=== PATIENT | male | born 1955 | race African-American/Black ===

== ENCOUNTER 2019-03-21 11:50 | Day surgery (SDC) | payer OTHER ==
--- NOTE | 2019-03-20 09:17 | RAD REPORT ---
EXAM DESCRIPTION: RAD - Chest Pa And Lat (2 Views) - 03/20/2019 8:40 am CLINICAL HISTORY: preop Chest pain. COMPARISON: No comparisons FINDINGS: The lungs are clear. The heart is upper limit of normal in size. No displaced fractures.
[2019-03-20 09:23] LABS: Absolute Lymphocytes (CBC) 1.2 K/uL (0.7-4.9); Basophils % 0.5 % (0-1.3); Hematocrit 33.5 % (39.6-49.0); Lymphocytes % 20.7 % (15.3-44.8); MPV 8.4 fL (7.6-11.3); RBC Red Blood Cell Count 3.94 M/uL (4.33-5.43); Urine Appearance TURBID; Urine Bilirubin NEGATIVE (NEG); Urine Blood NEGATIVE (NEG); Urine Color YELLOW; Urine Glucose NEGATIVE (NEG); Urine Protein 2+ (NEG); Urine Specific Gravity 1.025 (1.005-1.030)
[2019-03-20 09:25] LABS: Urine Microscopic Reflex ORDER UMIC
[2019-03-20 09:29] LABS: Protime INR 1.02
[2019-03-20 09:31] LABS: Potassium 4.1 mmol/L (3.5-5.1)
[2019-03-20 09:52] LABS: Urine Bacteria <20 /HPF (NONE SEEN); Urine RBC <5 /HPF (NONE SEEN)
[2019-03-20 09:53] LABS: Urine Amorphous Sediment 1+ /HPF (NONE SEEN); Urine Culture Reflex Order NOT NEEDED; Urine Mucus LIGHT /HPF (NONE SEEN); Urine Sperm PRESENT (NONE SEEN)
[2019-03-21] MEDS ORDERED: LIDOCAINE 1% MPF 30 ML VIAL ONE (12:23)
[2019-03-21] MEDS ORDERED: NA CHLORIDE 0.9% 1,000 ML ONE (12:29)
[2019-03-21] MEDS ORDERED: CEFAZOLIN/SWI 1gm 1 GM/10 ML SYR ONE (12:29)
[2019-03-21] MEDS ORDERED: LIDOCAINE 2% MPF 5 ML VIAL ONE (12:53)
[2019-03-21] MEDS ORDERED: propofoL 200 MG/20 ML VIAL IV ONE (12:53)
[2019-03-21] MEDS ORDERED: FENTANYL CITR 100 MCG/2 ML ONE (12:53)
[2019-03-21] MEDS ORDERED: MIDAZOLAM HCL 2 MG/2 ML INJ ONE (12:53)
[2019-03-21] MEDS ORDERED: BACITRACIN OINTMENT 15 GM TUBE TOP ONE (15:12)
[2019-03-21 17:34] VITALS: BP 137/73; TEMP 97.6; O2SAT 96
== END 2019-03-21 17:30 | disposition home or self-care (01) ==
LOC: OR 11:50
PROVIDERS: ATTEND Urology
PROC: 0VTTXZZ Resection of Prepuce, External Approach (ICD-10-PCS; principal; 2019-03-21 13:00)
DX: N47.1 Phimosis (principal); N42.9 Disorder of prostate, unspecified; N47.6 Balanoposthitis
CPT/HCPCS: 87088; 85025; 87086; 80048; 36415; 85610; 82947 ×2; 88304; 85730; 71046; 54150; J2704; J2250; J3010; J0690; J7030; 81003; 81015

== ENCOUNTER 2020-06-13 10:40 | Emergency (ER) | payer OTHER ==
[2020-06-13 11:32] LABS: Absolute Lymphocytes (CBC) 1.7 K/uL (0.7-4.9); Basophils % 0.9 % (0-1.3); Lymphocytes % 26.8 % (15.3-44.8); MPV 9.3 fL (7.6-11.3); RBC Red Blood Cell Count 4.56 M/uL (4.33-5.43)
--- NOTE | 2020-06-13 11:36 | RAD REPORT ---
EXAM DESCRIPTION: RAD - Chest Single View - 06/13/2020 11:21 am CLINICAL HISTORY: SOB COMPARISON: March 2019 TECHNIQUE: AP portable chest image was obtained 06/13/2020 11:21 am . FINDINGS: Lung volumes are low. Heart, vasculature and lung markings are all prominent even when adj usting for respiration and technique differences. No peripheral mass or consolidation. Posterior gutt er and retrocardiac assessment are more limited. Trachea is midline. No pneumothorax or large pleural effusion. No acute bony abnormality seen. No acute aortic findings suspected. IMPRESSION: Limited portable study suspicious for mild failure or volume overload.
[2020-06-13 11:40] LABS: Protime INR 1.16
[2020-06-13 11:46] LABS: ALT/SGPT 15 U/L (12-78); AST/SGOT 15 U/L (15-37); Albumin 3.3 g/dL (3.4-5.0); Alkaline Phosphatase 132 U/L (45-117); BUN Blood Urea Nitrogen 8 mg/dL (7-18); Bicarbonate 37 mmol/L (21-32); Bilirubin Direct 0.1 mg/dL (0-0.2); Bilirubin Total 0.3 mg/dL (0.2-1.0); Glucose Level 77 mg/dL (74-106); Magnesium 1.9 mg/dL (1.8-2.4); NT PRO-BNP 5088 pg/mL (<125); Potassium 4.3 mmol/L (3.5-5.1); Sodium Level 144 mmol/L (136-145); Troponin (Emerg Dept Use Only) 0.04 ng/mL (0.0-0.045)
[2020-06-13] MEDS ORDERED: ACETAMINOPHEN 500 MG TAB PO PRN (12:24)
[2020-06-13] MEDS ORDERED: ONDANSETRON 4 MG/2 ML VIAL IV PRN (12:24)
--- NOTE | 2020-06-13 12:26 | EDPHYS ---
Physician Documentation [facility] Name: Jose Elias Uribe Age: 64 yrs Sex: Male : 1955 Arrival Date: 06/13/2020 Time: 10:42 Bed 4 Private MD: ED Physician Vladimir Alvares HPI: 06/13 11:00 This 64 yrs old Black Male presents to ER via Unassigned with complaints of Shortness cp Of Breath. 11:00 The patient has shortness of breath with light activity. Onset: The symptoms/episode cp began/occurred gradually. 11:00 Duration: The symptoms are continuous, and are steadily getting worse. cp 11:00 Associated signs and symptoms: Pertinent negatives: chest pain, productive cough, cp fever, vomiting. Severity of symptoms: in the emergency department the symptoms have improved mildly. Historical: - Allergies: 13:25 No Known Allergies; tw2 - Home Meds: 13:25 allopurinol 100 mg Oral tab 1 tab once daily for Gout [Active]; alogliptin 25 mg oral tw2 tab 1 tab once daily for Type 2 Diabetes Mellitus [Active]; aspirin 81 mg Oral chew 1 tab once daily [Active]; atorvastatin 10 mg oral tab 1 tab once daily [Active]; cholecalciferol (vitamin D3) oral 50 mcg oral daily [Active]; finasteride 5 mg oral tab 1 tab once daily [Active]; glyburide 5 mg Oral tab 2 tabs 2 times per day [Active]; insulin glargine subcutaneous 100 unit/ml - inject 15 units sq every morning, inject 10 units at bedtime Sub-Q [Active]; lisinopril 10 mg Oral tab 1 tab once daily [Active]; metformin 1,000 mg Oral tab 1 tab 2 times per day [Active]; metoprolol tartrate 25 mg Oral tab 0.5 tab 2 times per day [Active]; omeprazole 20 mg Oral cpDR 1 cap once daily [Active]; tamsulosin 0.4 mg oral cp24 1 cap once daily [Active]; cyanocobalamin (vitamin B-12) 1,000 mcg oral tab daily [Active]; - PMHx: 13:08 COPD; Diabetes - IDDM; Hypertension; tw2 13:25 Alcoholism; Back pain; Hyperlipidemia; PVD; Obesity; Depression; tw2 - Immunization history:: Adult Immunizations. - Social history:: Smoking status: . ROS: 11:00 Constitutional: Negative for body aches, chills, fever, poor PO intake. cp 11:00 Eyes: Negative for injury, pain, redness, and discharge. cp 11:00 ENT: Negative for ear pain, sore throat, difficulty swallowing, difficulty handling secretions. 11:00 Cardiovascular: Positive for edema, Negative for chest pain, palpitations. 11:00 Respiratory: Positive for shortness of breath, Negative for cough, wheezing. 11:00 Abdomen/GI: Negative for abdominal pain, nausea, vomiting, and diarrhea. 11:00 Skin: Negative for rash. 11:00 Neuro: Negative for altered mental status, headache, syncope, weakness. 11:00 All other systems are negative. Exam: 11:00 ECG was reviewed by the Attending Physician. cp 11:05 Constitutional: The patient appears in no acute distress, alert, awake, cp non-diaphoretic, non-toxic, well developed, well nourished, obese. 11:05 Head/Face: Normocephalic, atraumatic. cp 11:05 Eyes: Periorbital structures: appear normal, Conjunctiva: normal, no exudate, no injection, Sclera: no appreciated abnormality, Lids and lashes: appear normal, bilaterally. 11:05 ENT: External ear(s): are unremarkable, Nose: is normal, Mouth: Lips: moist, Oral mucosa: pink and intact, moist, Posterior pharynx: Airway: no evidence of obstruction, patent, swelling, is not appreciated, erythema, is not appreciated, exudate, is not appreciated. 11:05 Neck: ROM/movement: is normal, is supple, without pain, no range of motions limitations. 11:05 Chest/axilla: Inspection: normal, Palpation: is normal, no crepitus, no tenderness. 11:05 Cardiovascular: Rate: normal, Rhythm: regular, Edema: ankle edema, that is mild, JVD: is not appreciated. 11:05 Respiratory: the patient does not display signs of respiratory distress, Respirations: normal, no use of accessory muscles, no retractions, labored breathing, is not present, Breath sounds: decreased breath sounds, that are mild, diffuse, stridor, is not appreciated, wheezing: is not appreciated. 11:05 Abdomen/GI: Inspection: obese Palpation: abdomen is soft and non-tender, in all quadrants. 11:05 Back: pain, is absent, ROM is normal. 11:05 Skin: no rash present. 11:05 Neuro: Orientation: to person, place \\T\\ time. Mentation: is normal, Cerebellar function: is grossly normal, Motor: moves all fours, strength is normal, Sensation: is normal. Vital Signs: 10:43 Pulse Ox 84% on R/A; aa5 11:00 BP 112 / 78; Pulse 78; Resp 19; Pulse Ox 99% on 2 lpm NC; tw2 13:21 BP 150 / 86; Pulse 89; Resp 17 S; Pulse Ox 100% on 2 lpm NC; jd3 15:05 BP 154 / 78; Pulse 85; Resp 20 S; Pulse Ox 99% on 2 lpm NC; jd3 MDM: 10:42 Patient medically screened. [email or web address] 12:00 Physician consultation: Patricia Fuentes MD was called at 12:00, was contacted at 12:00, cp regarding admission, to the telemetry unit. patient's condition. 12:25 Data reviewed: vital signs, nurses notes, lab test result(s), EKG, radiologic studies, cp plain films. 12:25 Test interpretation: by ED physician or midlevel provider: ECG, plain radiologic cp studies. 06/13 10:45 Order name: Basic Metabolic Panel cp 06/13 10:45 Order name: CBC with Diff cp 06/13 10:45 Order name: LFT's cp 06/13 10:45 Order name: Magnesium cp 06/13 10:45 Order name: NT PRO-BNP cp 06/13 10:45 Order name: PT-INR cp 06/13 10:45 Order name: Troponin (emerg Dept Use Only) cp 06/13 11:16 Order name: COVID-19 : Document "Date of Symptom Onset" if Symptomatic. eb 06/13 11:31 Order name: CORONAVIRUS EDWV 06/13 11:46 Order name: Basic Metabolic Panel; Complete Time: 11:53 EDWV 06/13 11:53 Interpretation: Normal except: CO2 37. cp 06/13 11:46 Order name: Liver (Hepatic) Function; Complete Time: 11:53 EDWV 06/13 11:53 Interpretation: Normal except: ALK 132; ALB 3.3; GLOB 4.7; A/G 0.7. 06/13 11:46 Order name: Troponin (Emerg Dept Use Only); Complete Time: 11:53 EDMS 06/13 11:54 Interpretation: Within normal limits: TROPED 0.04. cp 06/13 11:46 Order name: NT PRO-BNP; Complete Time: 11:53 EDMS 06/13 11:53 Interpretation: Abnormal: NT PRO-BNP 5088. 06/13 10:45 Order name: XRAY Chest (1 view) cp 06/13 10:45 Order name: EKG; Complete Time: 10:46 cp 06/13 10:45 Order name: Cardiac monitoring; Complete Time: 11:23 cp 06/13 10:45 Order name: EKG - Nurse/Tech; Complete Time: 12:06 06/13 10:45 Order name: IV Saline Lock; Complete Time: 11:23 cp 06/13 10:45 Order name: Labs collected and sent; Complete Time: 11:24 06/13 10:45 Order name: O2 Per Protocol; Complete Time: 11:24 06/13 10:45 Order name: O2 Sat Monitoring; Complete Time: 11:24 06/13 11:36 Order name: RAD; Complete Time: 11:43 EDMS 06/13 11:44 Interpretation: Report reviewed. 06/13 11:46 Order name: Magnesium; Complete Time: 11:53 EDMS 06/13 11:46 Order name: Protime (+INR); Complete Time: 11:53 EDMS 06/13 12:01 Order name: CBC with Automated Diff; Complete Time: 12:23 EDMS 06/13 12:16 Order name: SARS-COV-2 RT PCR; Complete Time: 12:23 EDMS EC:00 Rate is 86 beats/min. Rhythm is regular. NC interval is normal. QRS interval is normal. cp QT interval is normal. Interpreted by me. Reviewed by me. Administered Medications: 12:35 Drug: Lasix 40 mg Route: IVP; Site: left antecubital; tw2 13:30 Follow up: Response: No adverse reaction jd3 12:35 Drug: Aspirin Chewable Tablet 162 mg Route: PO; tw2 13:30 Follow up: Response: No adverse reaction jd3 Disposition: 16:11 Co-signature as Attending Physician, Vladimir Alvares MD I agree with the assessment and [facility] plan of care. Disposition: 06/13/20 15:45 Patient has left against medical advice. Impression: Hypoxemia, Unspecified combined systolic (congestive) and diastolic (congestive) heart failure. - Patients states they are going to Home. - Condition is Fair. Follow up: Private Physician; When: Today; Reason: Recheck today's complaints. - Problem is new. - Symptoms are unchanged. Signatures: Dispatcher [employer] EDWV Vladimir Alvares MD MD cha Page, Corey, PA PA cp Hailey Ibrahim RN RN tw2 Angel Connell RN RN jd3 Corrections: (The following items were deleted from the chart) 12:25 12:25 Hospitalization Ordered by Patricia Fuentes MD for Inpatient Admission. Preliminary cp diagnosis is Unspecified combined systolic (congestive) and diastolic (congestive) heart failure. Bed requested for Telemetry/MedSurg (Inpatient). Status is Inpatient Admission. Condition is Stable. Problem is new. Symptoms have improved. cp 15:45 12:25 06/13/2020 12:25 Hospitalization Ordered by Patricia Fuentes MD for Inpatient cp Admission. Preliminary diagnosis is Unspecified combined systolic (congestive) and diastolic (congestive) heart failure; Hypoxemia. Bed requested for Telemetry/MedSurg (Inpatient). Status is Inpatient Admission. Condition is Stable. Problem is new. Symptoms have improved. cp 15:46 15:45 06/13/2020 15:45 Patients has left against medical advice. Impression: Hypoxemia; jd3 Unspecified combined systolic (congestive) and diastolic (congestive) heart failure. Patient states they are going to Home. Condition is Fair. Follow up: Private Physician; When: Today; Reason: Recheck today's complaints. Problem is new. Symptoms are unchanged. cp 19:36 12:00 Physician consultation: Roland Escalera was called at 12:00, was contacted at 12:00, regarding admission, to the telemetry unit. patient's condition, cp
--- NOTE | 2020-06-13 12:26 | ER ---
Nurse's Notes [facility] Name: Jose Elias Uribe Age: 64 yrs Sex: Male : 1955 Arrival Date: 06/13/2020 Time: 10:42 Bed 4 Private MD: Diagnosis: Hypoxemia;Unspecified combined systolic (congestive) and diastolic (congestive) heart failure Presentation: 06/13 10:42 Chief complaint: EMS states: pt from [place], went for routine check up, was noted 68% RA, tw2 pt has no complaints at first, then he began to have chest pain, he said RIGHT sharp chest pain at least once a week, didn't think anything about it, they had him on o2 when we arrived, in the ambulance we noted 89% on RA, we placed him back on the 2L nc and he returned to mid to high 90's%, hx: copd, htn, dm, NOTED BEDBUGS ON PT. Coronavirus screen: difficulty breathing, Client presents with at least one sign or symptom that may indicate coronavirus-19. Standard/surgical mask placed on the client. Provider contacted for isolation considerations. Ebola Screen: Patient denies travel to an Ebola-affected area in the 21 days before illness onset. Initial Sepsis Screen: Does the patient meet any 2 criteria? No. Patient's initial sepsis screen is negative. Does the patient have a suspected source of infection? No. Patient's initial sepsis screen is negative. Risk Assessment: Do you want to hurt yourself or someone else? Patient reports no desire to harm self or others. Onset of symptoms was June 13, 2020. 10:42 Method Of Arrival: EMS: [facility] tw2 10:42 Acuity: COLE 2 tw2 10:42 Care prior to arrival: Oxygen administered. via nasal cannula. tw2 Historical: - Allergies: 13:25 No Known Allergies; tw2 - Home Meds: 13:25 allopurinol 100 mg Oral tab 1 tab once daily for Gout [Active]; alogliptin 25 mg oral tw2 tab 1 tab once daily for Type 2 Diabetes Mellitus [Active]; aspirin 81 mg Oral chew 1 tab once daily [Active]; atorvastatin 10 mg oral tab 1 tab once daily [Active]; cholecalciferol (vitamin D3) oral 50 mcg oral daily [Active]; finasteride 5 mg oral tab 1 tab once daily [Active]; glyburide 5 mg Oral tab 2 tabs 2 times per day [Active]; insulin glargine subcutaneous 100 unit/ml - inject 15 units sq every morning, inject 10 units at bedtime Sub-Q [Active]; lisinopril 10 mg Oral tab 1 tab once daily [Active]; metformin 1,000 mg Oral tab 1 tab 2 times per day [Active]; metoprolol tartrate 25 mg Oral tab 0.5 tab 2 times per day [Active]; omeprazole 20 mg Oral cpDR 1 cap once daily [Active]; tamsulosin 0.4 mg oral cp24 1 cap once daily [Active]; cyanocobalamin (vitamin B-12) 1,000 mcg oral tab daily [Active]; - PMHx: 13:08 COPD; Diabetes - IDDM; Hypertension; tw2 13:25 Alcoholism; Back pain; Hyperlipidemia; PVD; Obesity; Depression; tw2 - Immunization history:: Adult Immunizations. - Social history:: Smoking status: . Screenin:36 Abuse screen: Denies threats or abuse. Nutritional screening: No deficits noted. jd3 Tuberculosis screening: No symptoms or risk factors identified. Fall Risk Ambulatory Aid- None/Bed Rest/Nurse Assist (0 pts). Gait- Normal/Bed Rest/Wheelchair (0 pts) Mental Status- Oriented to own ability (0 pts). Total Mckinley Fall Scale indicates No Risk (0-24 pts). Assessment: 12:30 General: Appears in no apparent distress. uncomfortable, Behavior is calm, cooperative, jd3 appropriate for age. Pain: Complains of pain in chest Quality of pain is described as aching. Neuro: Level of Consciousness is awake, alert, obeys commands, Oriented to person, place, time, situation. Cardiovascular: Capillary refill < 3 seconds Patient's skin is warm and dry. Rhythm is. Respiratory: Reports shortness of breath at rest Airway is patent Respiratory effort is unlabored, shallow, Respiratory pattern is symmetrical, tachypnea the patient has moderate shortness of breath. GI: No signs and/or symptoms were reported involving the gastrointestinal system. : No signs and/or symptoms were reported regarding the genitourinary system. EENT: No signs and/or symptoms were reported regarding the EENT system. Derm: Skin is intact, Skin is dry, Skin is normal, Skin temperature is warm. Musculoskeletal: Circulation, motion, and sensation intact. Range of motion: intact in all extremities. 13:26 Reassessment: Patient appears in no apparent distress at this time. No changes from tw2 previously documented assessment. Patient and/or family updated on plan of care and expected duration. Pain level reassessed. 13:38 Reassessment: pt noted to be standing outside of exam room states "yall left me in here tw2 all connected and didn't tell me how to go to the bathroom and i dont have a tv in this room", pt educated as to the need to be in this exam room at this time as it is the only room we have available, and that urinal was hanging on his bed rail for his use, provider at bedside at this time educating pt. 14:30 Reassessment: No changes from previously documented assessment. Patient and/or family jd3 updated on plan of care and expected duration. Pain level reassessed. 15:30 Reassessment: Patient and/or family updated on plan of care and expected duration. Pain jd3 level reassessed. pt refusing to stay in room reporting wanting to go home. pt informed of the risk of leaving against medical advise. pt signed AMA form. IV discontinued after pt spoke with provider and assisted to lobby to wait for ride. Vital Signs: 10:43 Pulse Ox 84% on R/A; aa5 11:00 BP 112 / 78; Pulse 78; Resp 19; Pulse Ox 99% on 2 lpm NC; tw2 13:21 BP 150 / 86; Pulse 89; Resp 17 S; Pulse Ox 100% on 2 lpm NC; jd3 15:05 BP 154 / 78; Pulse 85; Resp 20 S; Pulse Ox 99% on 2 lpm NC; jd3 ED Course: 10:42 Patient arrived in ED. am2 10:42 Vladimir Dasilva PA is PHCP. cp 10:42 Vladimir Alvares MD is Attending Physician. cp 10:42 Arm band placed on. tw2 10:42 Bed in low position. Call light in reach. Side rails up X2. night monitor on. Pulse tw2 ox on. NIBP on. 10:55 Inserted saline lock: 20 gauge in left antecubital area, using aseptic technique. Blood kj1 collected. 10:55 Initial lab(s) drawn, by me, sent to lab. EKG done, by ED staff, reviewed by Vladimir Alvares MD. 12:04 Hailey Ibrahim, RN is Primary Nurse. tw2 12:24 Patricia Fuentes MD is Hospitalizing Provider. cp 13:07 Triage completed. tw2 15:36 No provider procedures requiring assistance completed. IV was discontinued by the jd3 patient. Patient did not have IV access during this emergency room visit. Administered Medications: 12:35 Drug: Lasix 40 mg Route: IVP; Site: left antecubital; tw2 13:30 Follow up: Response: No adverse reaction jd3 12:35 Drug: Aspirin Chewable Tablet 162 mg Route: PO; tw2 13:30 Follow up: Response: No adverse reaction jd3 Outcome: 12:25 Decision to Hospitalize by Provider. cp 15:37 AMA AMA form signed jd3 15:37 Condition: stable 15:37 Instructed on follow up and referral plans. the need for admit, possible problems with leaving against medical advice. AMA form signed 15:46 Patient left the ED. jd3 Signatures: Vivian Mcgowan, RN RN aa5 Vladimir Dasilva, ANNMARIE PA cp Hailey Ibrahim, RN RN tw2 Fouzia Jerez am2 Angel Connell RN RN jd3 Otilia Spencer Corrections: (The following items were deleted from the chart) 20:01 13:38 Reassessment: pt noted to be standing outside of exam room states "yall left me tw2 in here all connected and didn't tell me how to go to the bathroom and i dont have a tv in this room", pt educated as to the need to be in this exam room at this time as it is the only room we have available, provider at bedside at this time educating pt tw2
[2020-06-13] MEDS ORDERED: ASPIRIN 81 MG CHEWABLE TABLET ONE (12:46)
[2020-06-13] MEDS ORDERED: FUROSEMIDE 40 MG/4 ML VIAL ONE (12:47)
[2020-06-13 15:56] VITALS: BP 154/78; O2SAT 99
[2020-06-13] MEDS ORDERED: FUROSEMIDE 20 MG/ 2ML VIAL IV SCH (17:00)
[2020-06-14] MEDS ORDERED: METOPROLOL TAR 50 MG TAB PO SCH (06:00)
--- NOTE | 2020-06-14 06:51 | EKG ---
Test Date: 2020-06-13 Test Time: 10:56:20 Commercial Installer: LUIGI MEASUREMENT RESULTS: Intervals: Rate: 84 DE: 174 QRSD: 94 QT: 428 QTc: 505 [place]: P: 27 DE: 174 QRS: -30 T: 192 INTERPRETIVE STATEMENTS: Sinus rhythm with fusion complexes Left axis deviation Low voltage QRS Incomplete right bundle branch block Septal infarct, age undetermined Possible Lateral infarct, age undetermined Abnormal ECG No previous ECG available for comparison Electronically Signed On 06-14-20 06:49:17 TRUCK CLEANER by Theron Madrid
[2020-06-14] MEDS ORDERED: VANCOMYCIN 1 GM/VIAL ONE (12:42)
[2020-06-14] MEDS ORDERED: NA CHLORIDE 0.9% 250 ML ONE (12:42)
[2020-06-14] MEDS ORDERED: PIPER/TAZO/NS 3.375gm 3.375 GM/100 ML BAG ONE (12:42)
--- NOTE | 2020-06-15 08:34 | EKG ---
Test Date: 2020-06-13 Test Time: 10:56:45 Safety Admin Assistant: LUIGI MEASUREMENT RESULTS: Intervals: Rate: 86 PA: 160 QRSD: 96 QT: 386 QTc: 461 [place]: P: 10 PA: 160 QRS: -26 T: 110 INTERPRETIVE STATEMENTS: Normal sinus rhythm Low voltage QRS Incomplete right bundle branch block Cannot rule out Anterior infarct, age undetermined Abnormal ECG Compared to ECG 06/13/2020 10:56:20 Fusion complex(es) no longer present Left-axis deviation no longer present Myocardial infarct finding still present Electronically Signed On 06-15-20 08:29:46 TELEVISION INSTALLER HELPER by Theron Madrid
== END 2020-06-13 15:46 | disposition left against medical advice (07) ==
LOC: ER 10:40 → UNDOADMOB 12:27 → ERHOLD 12:27
DX: I50.9 Heart failure, unspecified (principal); I10 Essential (primary) hypertension; E11.9 Type 2 diabetes mellitus without complications; E78.5 Hyperlipidemia, unspecified; F10.20 Alcohol dependence, uncomplicated; J44.9 Chronic obstructive pulmonary disease, unspecified; Z79.82 Long term (current) use of aspirin; Z20.822 Contact with and (suspected) exposure to COVID-19
CPT/HCPCS: 93005 ×2; 85025; 80048; 36415; 83735; 85610; 80076; 84484; 83880; 71045; U0003; J1940; 96374; 99284

== ENCOUNTER 2021-12-05 20:34 | Emergency (ER) | payer OTHER ==
--- OUTSIDE RECORDS SUMMARY | 2021-12-05 21:18 | XMS REPORT | Continuity of Care Document ---
:1955 Author Organization [facility] t Address [address] [place] [address] Care Team Providers Name Role [facility] Primary Care Physician Unavailable [id number] Attending Clinician Unavailable LAWRENCE TALAVERA Attending Clinician Unavailable Skyler Huber Attending Clinician Unavailable ASHLEY MI NATASHA Attending Clinician Unavailable ZOFIA MULLER Attending Clinician Unavailable Zofia Muller Attending Clinician [phone] Mariah Schneider Attending Clinician Francis Perdomo RN Attending Clinician Unavailable BLU HAHN Attending Clinician Unavailable BLU HAHN Attending Clinician Unavailable Kenyetta Schultz Attending Clinician Braulio Figueroa MD Attending Clinician DEBORAH JEAN Attending Clinician Unavailable ASHLEY MI Attending Clinician Unavailable CHETNA HAMILTON Attending Clinician Unavailable Chetna Hamilton Attending Clinician Israel Kumar Attending Clinician Taylor CORONEL, Deborah Zhong Attending Clinician [phone] Vaccine, Eugene Family Attending Clinician Unavailable Doctor Unassigned, [place] Attending Clinician Unavailable Andrey Min Rahil Attending Clinician Unavailable Karen Fernandez Attending Clinician Unavailable Franck Gregorio Attending Clinician Unavailable Rob NORMAN, Pastora Attending Clinician Stephania Murdock DO Attending Clinician Noel CORONEL, Ricardo Attending Clinician Triston CORONEL, Lizette Monk Attending Clinician [phone] Garth CORONEL, Kimberly George Attending Clinician [phone] Marcio CORONEL, Christa Main Attending Clinician Mary Isidro CRNA Attending Clinician [id number] Admitting Clinician Unavailable Skyler Huber Admitting Clinician Unavailable ASHLEY MI NATASHA Admitting Clinician Unavailable MARIAH SCHNEIDER Admitting Clinician Unavailable Mariah Schneider Admitting Clinician BRAULIO FIGUEROA Admitting Clinician Unavailable ASHLEY MI Admitting Clinician Unavailable MARLI GUNN Admitting Clinician Unavailable Marli Gunn Admitting Clinician Todd Red Admitting Clinician RENE PEACOCK JR Admitting Clinician Unavailable Andrey Min Rahil Admitting Clinician Unavailable Karen Fernandez Admitting Clinician Unavailable Triston CORONEL, Lizette Monk Admitting Clinician [phone] LIZETTE GOLDSTEIN Admitting Clinician Unavailable Payers Payer Name Policy Type Policy Number Effective Date Expiration Date S vu MEDICARE PART A [id number] 2006 00:00:00 [facility] [id number] [facility] [id number] 2021 2024 00:00:00 00:00:00 Problems Condition Condition Condition Status Onset Resolution Last Treating Co mments Source Name Details Category Date Date Treatment Clinician Date AMS AMS Diagnosis Active 2021-11-26 Mem oria Active 11-26 14:35:00 l 11/26/2021 00:00: Logan tang [place] [address] SEPTIC SEPTIC Diagnosis Active 2021-12-04 Me moria SHOCK SHOCK 11-26 21:52:00 l Active 00:00: Jose Francisco 11/26/[address] [place] [address] Respirator Respirator Disease Active U nivers y acidosis y acidosis 7-30 it y of 00:00: [place] [facility] 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, B Active 02/17/2021 [facility] Rest pain Rest pain Disease Active 2020-04 [place] of both of both 04-05 Health lower lower 00:00: extremitie extremitie 00 s due to s due to atheroscle atheroscle rosis rosis Non-healin Non-healin Disease Active 2020-04 U T g wound of g wound of 0-27 He alth left lower left lower 00:00: extremity extremity 00 PAOD PAOD Disease Active 2020-04 [place] (periphera (periphera 0-27 He alth l arterial l arterial 00:00: occlusive occlusive 00 disease) disease) Coronary Coronary Disease Active Unive rs artery artery 8-10 ity of disease disease 00:00: [place] involving involving 00 [facility] [place] coronary coronary artery of artery of [place] heart with heart with angina angina pectoris pectoris Systolic Systolic Disease Active Unive rs dysfunctio dysfunctio 8-10 it y of n n 00:00: [place] [facility] Hypercapni Hypercapni Disease Active U nivers a a 3-17 ity of 00:00: [place] [facility] Nonrheumat Nonrheumat Disease Active U nivers ic mitral ic mitral 3-17 ity of valve valve 00:00: [place] regurgitat regurgitat 00 Me dical ion ion Branch GALICIA GALICIA Disease Active Univers (dyspnea (dyspnea 3-17 ity of on on 00:00: [place] exertion) exertion) 00 [facility] Branch Essential Essential Disease Active Uni vers hypertensi hypertensi 3-17 it y of on on 00:: Medical Branch Elevated Elevated Disease Active Unive rs brain brain 3-17 ity of natriureti natriureti [place] c peptide c peptide 00 [facility] (BNP) (BNP) Branch level level Dyslipidem Dyslipidem Disease Active U nivers ia ia 3-17 ity of 00:00: Medical Branch Cigarette Cigarette Disease Active Uni vers nicotine nicotine 3-17 ity of dependence dependence 00:00[place] without without 00 Medical complicati complicati Br anch on on WILBERT (acute WILBERT (acute Disease Active U nivers kidney kidney 3-17 ity of injury) injury) 00:00: [place] [facility] Acute Acute Disease Active Univers respirator respirator 3-17 it y of y failure y failure 00:00: Gl[place] s with with 00 Medical hypoxia hypoxia Branch and and hypercapni hypercapni a a Acute on Acute on Disease Active Unive rs chronic chronic 3-17 ity of systolic systolic 00:00: [place] and and 00 Medical diastolic diastolic Bran ch heart heart failure, failure, NYHA class NYHA class 3 3 Simple Simple Problem Active 2021-12-03 Robert doni obesity obesity 23:46:42 l (disorder) (disorder) He rmann Active Problem 12/03/2021 [place] Diabetes Diabetes Problem Active 2021-12-03 Memoria mellitus mellitus 23:46:42 l type 2 type 2 [place] (disorder) (disorder) Active Problem 12/03/2021 Jeffrey,M [facility] OTHER OTHER Diagnosis Active 2021-05-09 Mem oria ACUTE ACUTE 06:24:00 l OSTEOMYELI OSTEOMYELI He rmann TIS, TIS, UNSPECIFIE UNSPECIFIE D ANKLE D ANKLE AND ANAHI AND ANAHI Active [facility] OTHER OTHER Diagnosis Active 2021-06-03 Mem oria ACUTE ACUTE 07:49:00 l OSTEOMYELI OSTEOMYELI He rmann TIS, TIS, UNSPECIFIE UNSPECIFIE D A D A Active [facility] PERIPHERAL PERIPHERA Diagnosis Active 2021-06-03 Memoria VASCULAR L VASCULAR 07:49:00 l DISEASE, DISEASE, Logan n UNSPECIFIE UNSPECIFIE D D Active [facility] SEVERE SEVERE Diagnosis Active 2021-12-04 Me moria SEPSIS SEPSIS 21:52:00 l WITH WITH Jose Francisco SEPTIC SEPTIC SHOCK SHOCK Active [facility] History of Past Illness Condition Condition Condition Status Onset Resolution Last Treating Co mments Source Name Details Category Date Date Treatment Clinician Date Acute Acute Problem 2021-05-11 2021-05-11 M emoria posthemorr posthemorr 2-02 22:01:30 22:01:30 l hagic hagic 17:18: Jose Francisco anemia anemia 39 05/07/2021 05/11/2021 [facility] Acute Acute Problem 2021-05-11 2021-05-11 M emoria kidney kidney 2-02 22:01:30 22:01:30 l failure, failure, 17:18: Logan n unspecifie unspecifie 37 d d 05/07/2021 05/11/2021 [facility] Allergies, Adverse Reactions, Alerts Allergy Allergy Status Severity Reaction(s) Onset Inactive Treating Comm ents Source Name Type Date Date Clinician glipizid DA [facility] [place] [facility] hydrochl DA Active U 2020-0 [facility] orothiaz 6-25 [place] sandip 00:00: d 00 [facility] simvasta DA Active U 2020-0 [facility] tin 6-25 [place] 00:00: d 00 [facility] atorvast DA Active U 2020-0 [facility] atin 6-25 [place] 00:00: d 00 [facility] empaglif DA Active OR 2020-0 [facility] lozin 6-25 [place] 00:00: d 00 [facility] glipizid DA Active U UNKNOWN 2020-0 [facility] e 6-25 [place] 00:00: d 00 [facility] hydrochl DA Active U UNKNOWN 2020-0 [facility] orothiaz 6-25 [place] sandip 00:00: d 00 [facility] simvasta DA Active U UNKNOWN 2020-0 [facility] tin 6-25 [place] 00:00: d 00 [facility] atorvast DA Active U UNKNOWN 2020-0 [facility] atin 6-25 [place] 00:00: d 00 [facility] empaglif DA Active OR UNKNOWN 2020-0 [facility] lozin 6-25 [place] 00:00: d 00 [facility] No Known DA Active U 2020-0 [facility] Allergie 6-24 Clear s 00:00: [place] 00 [facility] No Known DA Active U 2020-0 [facility] Allergie 6-24 Clear s 00:00: [place] 00 [facility] NO KNOWN Drug Active Univers ALLERGIE Class ity of S [facility] glipiZID glipiZID Active Memori a E E l Jose Francisco atorvast atorvast Active Memori a atin atin l Jose Francisco Family History Family Member Diagnosis Comments Start Date Stop Date Source Father No Significant [facility] Medical Problems Medical [place] Mother No Significant [facility] Problems [facility] Social History Social Habit Start Date Stop Date Quantity Comments Source History of Current smoker University of tobacco use [facility] Exposure to 2021-10-22 2021-11-01 Yes University of SARS-CoV-2 00:00:00 08:42:00 [facility] (event) Branch Alcohol intake 2021-11-01 2021-11-01 Lifetime University of 00:00:00 00:00:00 non-drinker [facility] (finding) Branch Tobacco use and 2020-11-12 2020-11-12 User of smokeless Un iversity of exposure 00:00:00 00:00:00 tobacco [facility] Sex Assigned At [birth year] [facility] 00:00:00 00:00:00 Smoking Status Start Date Stop Date Source Social History Cihn Felton Social History 2021-04-25 15:00:35 Chin kelley Ex-smoker 2020-11-12 00:00:00 2020-11-12 00:00:00 [facility] Current every day 2020-07-14 00:00:00 [facility] Medications Ordered Filled Start Stop Current Ordering Indication Dosage Frequency Signature Comments Components Source Medication Medication Date Date Medication? Clinician (SIG) Name Name vancomycin No 2000 mg: Me moria + Sodium 8-30 infuse l Chloride 03:00: over 2.5 Dominique nn 0.9% IV 500 00 hours For mL adult patients only: Round to nearest 250 mg per Medical Staff approval MEDICATION WASTE Product Size: 1000 mg Product Wasted: ___ mg Tylenol No Notes: Do Memor ia 8- not exceed l 22:24: 4 gm/day. [place] 00 (Same as: Tylenol) cefdinir Yes 300 mg = 1 Mem oria 300 mg oral 12-01 cap, PO, l capsule 22:23: Q12H, X 3 Dominique nn day, # 6 cap, 0 Refill(s), Pharmacy: [id number], 182.88, cm, 11/26/21 17:37:00 CDT, Height, 113.008, kg, 11/26/21 17:37:00 CDT, Weight magnesium No Notes: Memori a sulfate 12-01 WASTE: F/P l 19:33: - Sink; E Jose Francisco 00 - Municipal Trash Bin Imdur No Notes: Memoria 8-29 (Same l 14:00: as:Imdur) [place] 00 "Do Not Crush" Take on empty stomach/ full glass of water. Do not crush lisinopril No Notes: Memor ia - (Same as: l 14:00: PrinivilAlbaniaJose Francisco 00 Zestril) Metoprolol No Notes: Memor ia Succinate 12-01 (Same as: l ER 25 mg 14:00: Toprol XL) Her kelley oral 00 Do Not tablet, Crush extended release multivitami No Notes: Robert doni n 12-01 (Same l 14:00: as:One Tab Daily, Tab-A-Emili + Beta Carotene) Give with food. thiamine No Notes: Memoria 12-01 (Same As: l 14:00: Vitamin B1) apixaban No Notes: Memoria 12-01 Same as: l 02:00: Eliquis mirtazapine No Notes: Robert doni 12-01 (Same l 02:00: as:Remeron ) D10W No 250 mL, Memoria (bolus) IV 12-01 999 ml/hr, l 01:01: Route: IVPB, Drug Form: INJ, Dosing Weight 113.008, kg, PRN, PRN Blood Glucose Results, Start date: 11/30/21 20:01:00 CDT, Duration: 30 day, Stop date: 12/30/21 20:00:00 CDT, Infuse over: 0.3 hr, 0 bisacodyl No Notes: Memori a 11-30 (Same As: l 21:17: Dulcolax, Bisco-Lax) lactulose No Notes: Memori a 10 g/15 mL 11-30 (Same l oral syrup 21:17: as:Chronul H ac) melatonin No Notes: Memori a 11-30 (Same as: l 21:17: Melatonin) Dextrose No 25 mL, Memoria 50% Syringe 11-30 Route: l (D50W) 21:16: IVP, Dosing Weight 113.008, kg, PRN, PRN Blood Glucose Results, Start date: 11/30/21 16:16:00 CDT, Duration: 30 day, Stop date: 12/30/21 16:15:00 CDT glucagon No 1 mg, Memoria 11-30 Route: IM, l 21:16: Drug form: Jose Francisco 00 PDR/INJ, PRN, Dosing Weight 113.008, kg, PRN Blood Glucose Results, Start date: 11/30/21 16:16:00 CDT, Duration: 30 day, Stop date: 12/30/21 16:15:00 CDT, 0 insulin No Notes: Memoria lispro - (Same as: l 21:16: Humalog) Jose Francisco 00 Roll in palms of hands gently; Do not shake vigorously . WASTE: F/P - Black; E - Municipal Trash Bin Stable for 28 days at room temperatur e. Expires in days from ____Date vancomycin No 2000 mg: Me moria + Sodium 8-27 infuse l Chloride 22:15: over 2.5 Dominique nn 0.9% IV 500 00 hours For mL adult patients only: Round to nearest 250 mg per Medical Staff approval MEDICATION WASTE Product Size: 1000 mg Product Wasted: ___ mg hydrALAZINE No Notes: Robert doni 8-27 (Same as: l 06:31: Apresoline Jose Francisco 00 ) Push over 5 minutes vancomycin No 2000 mg: Me moria + Sodium 8-26 infuse l Chloride 22:00: over 2.5 Dominique nn 0.9% IV 250 00 hours For mL adult patients only: Round to nearest 250 mg per Medical Staff approval clopidogrel No Notes: Robert doni 8-26 (Same As: l 14:00: Plavix) Jose Francisco 00 MiraLax No Notes: Memoria 8-26 Dissolve l 14:00: in 8 oz of Jose Francisco 00 water or juice. (Same as: Miralax) cefepime + No Notes: Memor ia Sodium 8-26 (Same As: l Chloride 01:30: Maxipime) Herm neto 0.9% IV 100 00 mL MEDICATION WASTE Product Size: 1000 mg Product Wasted: ___ mg vancomycin No 2000 mg: Me moria + Sodium 8-25 infuse l Chloride 22:00: over 2.5 Dominique nn 0.9% IV 250 00 hours For mL adult patients only: Round to nearest 250 mg per Medical Staff approval docusate No Notes: Memoria sodium 150 8-25 (Same as: l mg/15 mL 22:00: Colace) Logan n oral liquid 00 AMIODarone No Notes: Memor ia 8-25 (Same as: l 14:00: Cordarone) Jose Francisco 00 finasteride No Notes: Robert doni 8-25 (Same as: l 14:00: Proscar) Jose Francisco 00 "Do Not Crush" Women of childbeari ng age should not touch or handle broken tablets Hazardous Drug Group 3:Reproduc tive risk Hazardous Drug -- Refer to safe handling procedure PPE Matrix cefepime + No Notes: Memor ia Sodium 8-25 (Same As: l Chloride 06:00: Maxipime) Herm neto 0.9% IV 100 00 mL MEDICATION WASTE Product Size: 1000 mg Product Wasted: ___ mg Saline No Notes: Memoria Flush 0.9% 8-25 Same as: l 02:00: BD [place] 00 Posiflush Sterile multivitami Yes 1 tab, PO, Memoria n 8-25 Daily, 0 l 00:50: Refill(s) Jose Francisco 00 Prevacid Yes 30 mg = 1 Robert doni SoluTab 30 8-25 tab, PO, l mg oral 00:48: Daily, 0 Logan n tablet, 00 Refill(s) disintegrat ing albuterol-i Yes 3 mL, NEB, Memoria pratropium 8-25 Q6H, PRN l 2.5-0.5 mg 00:48: as needed He rmann inhalation 00 for solution shortness of breath or wheezing, 0 Refill(s) NovoLOG Yes SUB-Q, Memoria 8-25 TID-Before l 00:47: Meals, low Jose Francisco 00 dose sliding scale, 0 Refill(s) Dextrose No 25 gm, IV, Mem oria 50% 8-25 ONCALL, l intravenous 00:46: PRN Blood H ermann solution 00 Glucose Results, # 1, 0 Refill(s) Aldactone Yes 12.5 mg, Robert doni 8-25 PO, Daily, l 00:44: # 60 tab, Jose Francisco 00 0 Refill(s) glucagon 1 No 1 mg, Memori a mg/0.2 mL 8-25 SUB-Q, l subcutaneou 00:44: ONCE, PRN H ermann s solution 00 Blood Glucose Results, 0 Refill(s) docusate-se Yes 2 tab, PO, Memoria nna 50 8-25 BID, 0 l mg-8.6 mg 00:43: Refill(s) Her kelley oral tablet 00 GlyBURIDE Yes 5 mg = 1 Robert doni (Eqv-DiaBet 8-25 tab, PO, l a) 5 mg 00:43: Daily, 0 Logan n oral tablet 00 Refill(s) lisinopril Yes 5 mg = 1 Mem oria 5 mg oral 8-25 tab, PO, l tablet 00:43: Daily, # [place] 00 30 tab, 0 Refill(s) ferrous Yes 324 mg = 1 Robert doni gluconate 8-25 tab, PO, l 324 mg oral 00:42: TID, 0 Herm neto tablet 00 Refill(s) thiamine Yes 100 mg = 1 Mem oria 100 mg oral 8-25 tab, PO, l tablet 00:40: Daily, 0 Jose Francisco 00 Refill(s) Lantus 100 Yes 4 units, Mem oria units/mL 8-25 SUB-Q, l 00:39: Daily, 0 Jose Francisco 00 Refill(s) bisacodyl Yes 10 mg = 1 Mem oria 10 mg 8-25 supp, NC, l rectal 00:38: BID, PRN Jose Francisco suppository 00 Constipati on, # 10 supp, 0 Refill(s) simethicone Yes Q8H, PRN Me moria 80 mg oral 8-25 Gas, 0 l tablet 00:36: Refill(s) Logan n 00 acetaminoph Yes 650 mg, Mem oria en 8-25 Q4H, PRN l 00:34: Pain Score Jose Francisco 00 1-3, 0 Refill(s) atorvastati Yes 80 mg = 1 M emoria n 80 mg 8-25 tab, PO, l oral tablet 00:27: Bedtime, # Jose Francisco 00 90 tab, 0 Refill(s) vancomycin No 2000 mg: Me moria + Sodium 8-24 infuse l Chloride 21:00: over 2.5 Dominique nn 0.9% IV 500 00 hours For mL adult patients only: Round to nearest 250 mg per Medical Staff approval MEDICATION WASTE Product Size: 1000 mg Product Wasted: ___ mg Levophed 8 No Notes: Memor ia mg in 250 24 Same as: l mL 19:54: Levophed. [place] (Titrate.) 00 Administer IV 8 mg by either central venous catheter or peripheral ly-inserte d central catheter (PICC) line. Concentrat ion: 0.032 mg / mL Vancomycin No Notes: Memor ia Pharmacy 11-26 Vancomycin l Dosing 19:39: Pharmacy [place] Consult 22 Dosing Protocol PHARMAC Y USE ONLY Note: This is not a medication order. This is a consultati on order. vancomycin No 2,000 mg, Me moria 24 Route: l 19:38: IVPB, Drug form: INJ, ONCE, Dosing Weight 115.009, kg, Priority: STAT, Start date: 11/26/21 14:38:00 CDT, Stop date: 11/26/21 14:38:00 CDT, ABX Indication : Bacteremia nystatin No Notes: Memoria topical 11-26 (Same l 100,000 19:34: as:Mycosta Herm neto units/g 00 tin, powder Nilstat) For external use only. albuterol-i No Notes: Robert doni pratropium -24 (Same as: l 2.5-0.5 mg 19:34: Duoneb) Herm neto inhalation 00 solution Saline No Notes: Memoria Flush 0.9% 11-26 Same as: l 19:34: BD Jose Francisco 00 Posiflush Sterile potassium No Notes: Memori a chloride 8-24 Infuse at l 19:00: a rate of Jose Francisco 10 mEq/hr. (Same as: KCL) cefepime 2021-0 No 2 gm, Memoria 8-24 Route: l 18:06: IVPB, [place] 00 ONCE, Dosing Weight 115.009, kg, Priority: STAT, Start date: 11/26/21 13:06:00 CDT, Stop date: 11/26/21 13:06:00 CDT, ABX Indication : ED - Suspected Sepsis Sodium 2-0 No 1,000 mL, Memori a Chloride 8-24 1,000 l 0.9% 17:34: ml/hr, [place] (Bolus) IV 00 Infuse Over: 1 hr, Route: IV, 1,000, Drug form: INJ, ONCE, Priority: STAT, Dosing Weight 115.009 kg, Start date: 11/26/21 12:34:00 CDT, Stop date: 11/26/21 12:34:00 CDT, 0 Sodium 2022-0 No 1,000 mL, Memori a Chloride 8-24 1,000 l 0.9% 16:26: ml/hr, Jose Francisco (Bolus) IV 00 Infuse Over: 1 hr, Route: IV, 1,000, Drug form: INJ, ONCE, Priority: STAT, Dosing Weight 100 kg, Start date: 11/26/21 11:26:00 CDT, Stop date: 11/26/21 11:26:00 CDT, 0 Saline 2021-0 No Notes: Memoria Flush 0.9% 8-24 Same as: l 16:15: BD [place] 00 Posiflush Sterile ferrous 2021-0 Yes 324mg Take 324 Unive rs gluconate 8-20 mg by ity of 324 mg 15:28: mouth 3 [place] (37.5 mg 20 (three) Medical iron) times Branch tablet daily with meals. Multivitami 0 Yes Take by Uni vers ns with 8-20 mouth. ity of Fluoride 15:28: [place] (MULTI-NEELAM 20 Medical MIN ORAL) Branch glyBURIDE 5 0 Yes 5mg Take 5 mg U nivers mg tablet 8-20 by mouth ity of 15:28: daily with [place] 20 breakfast. Medical Branch ferrous 2021-0 Yes 324mg Take 324 Unive rs gluconate 8-20 mg by ity of 324 mg 15:28: mouth 3 [place] (37.5 mg 20 (three) Medical iron) times Branch tablet daily with meals. Multivitami Yes Take by Uni vers ns with 8-20 mouth. ity of Fluoride 15:28: [place] (MULTI-NEELAM 20 Medical MIN ORAL) Branch glyBURIDE 5 Yes 5mg Take 5 mg U nivers mg tablet 8-20 by mouth ity of 15:28: daily with [place] 20 breakfast. Medical Branch ibuprofen 2021- No 400mg Take 400 Un jefferson 400 mg 8-20 08-20 mg by ity of tablet 11:16: 00:00 mouth [place] 54 :00 every 6 Medical (six) Branch hours as needed. rosuvastati 2021- No Take by Un jefferson n 40 mg 8-20 08-20 mouth. ity of CpSP 11:16: 00:00 [place] 54 :00 Medical Branch LACTULOSE 2021- No Take by Univ ers ORAL 8-20 08-20 mouth. ity of 11:16: 00:00 [place] 54 :00 Medical Branch QUEtiapine 2021- Yes [id number] 25mg Take 1 Univers 25 mg 8-20 09-20 tablet by ity of tablet 00:00: 04:59 mouth at [place] 00 :00 bedtime Medical for 30 Branch days. QUEtiapine 2021- Yes [id number] 25mg Take 1 Univers 25 mg 8-20 09-20 tablet by ity of tablet 00:00: 04:59 mouth at [place] 00 :00 bedtime Medical for 30 Branch days. enoxaparin Yes 40mg 40 mg, Unive rs (LOVENOX) 8-19 Subcutaneo ity of injection 14:00: [place], DAILY, [place] 40 mg 00 First dose Medical (after Branch last modificati on) on Wed11/21/21 at 0900, Until Discontinu ed, Routine QUEtiapine Yes 25mg 25 mg, Unive rs (SEROQUEL) 8-19 Oral, QHS, ity of tablet 25 02:00: First dose [place] mg 00 (after Medical last Branch modificati on) on Alessandra 11/20/21 at 2100, Until Discontinu ed, Routine QUEtiapine No 25mg 25 mg, Univ ers (SEROQUEL) 11-1818 Oral, BID, it y of tablet 25 01:00: 19:52 First dose [place] mg 00 :48 on Mon Medical 11/17/21 at Branch 2000, Until Discontinu ed, Routine ipratropium Yes 3mL 3 mL, Unive rs -albuteroL 11-15 Inhalation ity of (DUONEB) 23:30: , Q6HPRN, [place] 0.5 mg-3 00 Starting Medical mg(2.5 mg on [facility] base)/3 mL 11/15/21 at nebulizer 1830, solution 3 Until mL Discontinu ed, Routine, Wheezing QUEtiapine No 25mg 25 mg, Univ ers (SEROQUEL) 811-14 Oral, ity of tablet 25 00:36: 15:55 Q6HPRN, [place] mg 03 :25 Starting Medical on Wed11/12/21 at 1936, Until Wed11/14/21 at 1055, Routine, Insomnia Sliding 0 Yes Subcutaneo Univ ers Scale 8-10 us, TID ity of Insulin - 17:00: MEALS, [place] Lispro 00 First dose Medical (HumaLOG) + (after [place] [facility] last Testing modificati on) on Wed11/12/21 at 1200, Until Discontinu ed, Routine amiodarone Yes 200mg 200 mg, Uni vers (PACERONE) 8 Oral, ity of tablet 200 14:00: DAILY, [place] mg 00 First dose Medical (after Branch last reorder) on Wed11/12/21 at 0900, Until Discontinu ed, Routine tamsulosin Yes .4mg 0.4 mg, Univ ers (FLOMAX) 8- Oral, ity of capsule 0.4 14:00: DAILY, [place] mg 00 First dose Medical (after Branch last reorder) on Wed11/12/21 at 0900, Until Discontinu ed, Routine lisinopriL 2021- No 5mg 5 mg, Unive rs (PRINIVIL,Z 11-12 Oral, ity of ESTRIL) 14:00: 21:17 DAILY, [place] tablet 5 mg 00 :28 First dose Me dical (after Branch last reorder) on Wed11/12/21 at 0900, Until Discontinu ed, Routine metoprolol Yes 25mg 25 mg, Unive rs succinate 8-10 Oral, BID, ity of XL (TOPROL 13:45: First dose [place] XL) tablet 00 (after Medical 25 mg last Branch modificati on) on Wed11/12/21 at 0845, Until Discontinu ed, Routine dexMEDEtomi No .2ug/kg 0.2-1.5 Univers dine 400 11-12 08-10 /h mcg/kg/hr ity o f mcg in 0.9 09:57: 13:31 ?116.5 kg [place] % NaCl 100 59 :03 (5.825-43. Med ical mL 6875 Branch (PRECEDEX) mL/hr, RTU IV rounded to infusion 5.83-43.69 mL/hr), IV Infusion, TITRATE, Sedation-R ASS score (0 to -1), Starting on Wed11/12/21 at 0457
In itiate infusion at 0.2 mcg/kg/hr and titrate by 0.1 mcg/kg/hr every 30 minutes to goal sedation score. Maximum dose = 1.5 mcg/kg/hr. If goal not maintained at maximum allowed dose, contact prescriber .
isosorbide 2021- No 30mg Take 30 mg Univers dinitrate 11-12 by mouth 4 ity of 30 mg 08:33: 00:00 (four) [place] tablet 03 :00 times Medical daily. Branch enoxaparin No 40mg 40 mg, Univ ers (LOVENOX) 11-11 Subcutaneo ity of injection 01:00: 12:49 [place], Q12H, [place] 40 mg 00 :07 First dose Medical (after Branch last modificati on) on Wed11/10/21 at 2000, Until Discontinu ed, Routine FENTanyl PF No 25ug 25 mcg, Un jefferson (SUBLIMAZE 11-10 Slow IV ity o f (PF)) 03:52: 21:02 Push, [place] injection 43 :25 Q4HPRN, Medical 25 mcg Starting Branch on Wed11/09/21 at 2252, Until Wed11/11/21 at 1602, Routine, Pain (scale 7-10), discomfort dexMEDEtomi 2021- No .2ug/kg 0.2-1.5 Univers dine 200 11-10 08-09 /h mcg/kg/hr ity o f mcg in 0.9 03:52: 21:02 ?116.5 kg [place] % NaCl 50 29 :25 (5.825-43. Medi natalio mL 6875 Branch (PRECEDEX) mL/hr, RTU IV rounded to infusion 5.83-43.69 mL/hr), IV Infusion, TITRATE, Sedation-R ASS score (0 to -1), Starting on Wed11/09/21 at 2252
In itiate infusion at 0.2 mcg/kg/hr and titrate by 0.1 mcg/kg/hr every 30 minutes to goal sedation score. Maximum dose = 1.5 mcg/kg/hr. If goal not maintained at maximum allowed dose, contact prescriber .
metoprolol 2021- No 25mg 25 mg, Univ ers succinate 11-08 Oral, BID, ity of XL (TOPROL 01:00: 14:09 First dose [place] XL) tablet 00 :10 on Wed Medical 25 mg 11/07/21 at Branch 2000, Until Discontinu ed, Routine amiodarone 2021- No 200mg 200 mg, Un jefferson (PACERONE) 11-07 Oral, ity of tablet 200 18:15: 16:18 DAILY, [place] mg 00 :06 First dose Medical on Wed Branch 11/07/21 at 1315, Until Discontinu ed, Routine lisinopriL 2021- No 5mg 5 mg, Unive rs (PRINIVIL,Z 11-07 Oral, ity of ESTRIL) 18:15: 16:46 DAILY, [place] tablet 5 mg 00 :11 First dose Me dical (after Branch last modificati on) on Wed11/07/21 at 1315, Until Discontinu ed, Routine famotidine Yes 20mg 20 mg, Unive rs (PEPCID) 40 11-07 Oral, ity of mg/5 mL (8 01:00: Q12H, [place] mg/mL) 00 First dose Medical suspension on [place] Branch 20 mg 11/06/21 at 1999, Until Discontinu ed, Routine labetaloL 2021- No 20mg 20 mg, Unive rs (NORMODYNE) 11-06 08-07 Slow IV ity of injection 20:50: 16:18 Push, [place] 20 mg 39 :06 Q4HPRN, Medical Starting Branch on [place] 11/06/21 at 1550, Until 11/09/21 at 1118, Routine, for SBP >160 furosemide No 40mg 40 mg, Univ ers (LASIX) 11-06 08-06 Slow IV ity of injection 13:00: 03:08 Push, [place] 40 mg 00 :00 Q12H, 4 Medical doses, Branch First dose on [place] 11/06/21 at 0800, Last dose on Wed11/07/21 at 1999, Routine furosemide 2021- No 40mg 40 mg, Univ ers (LASIX) 11-05 08-03 Slow IV ity of injection 22:00: 21:36 Push, [place] 40 mg 00 :00 ONCE, 1 Medical dose, On Branch Wed11/05/21 at 1700, Routine enoxaparin 2021- No 1mg/kg 129 mg Un jefferson (LOVENOX) 11-04 (rounded ity o f injection 01:00: 19:10 from 127 Luis as 129 mg 00 :41 mg = 1 Medical mg/kg ?127 Branch kg), Subcutaneo us, Q12H, First dose (after last modificati on) on 11/03/21 at 1999, Until Discontinu ed, Routine ipratropium 2021- No 3mL 3 mL, Univ ers -albuteroL 11-03 0813 Inhalation it y of (DUONEB) 17:00: 23:29 , Q6H, [place] 0.5 mg-3 00 :38 First dose Medic al mg(2.5 mg (after Branch base)/3 mL last nebulizer modificati solution 3 on) on Mon mL 11/03/21 at 1200, Until Discontinu ed, Routine enoxaparin 2021- No 1mg/kg 129 mg Un jefferson (LOVENOX) 11-03 (rounded ity o f injection 12:45: 16:34 from 127 Luis as 129 mg 00 :23 mg = 1 Medical mg/kg ?127 Branch kg), Subcutaneo us, Q24H, First dose (after last modificati on) on [facility] 11/03/21 at 0745, Until Discontinu ed, Routine ceFEPIme 2021- No 1000mg 1,000 mg, U nivers (MAXIPIME) 11-02 0803 IV ity of 1,000 mg in 22:00: 16:57 Piggyback, [place] NaCl 0.9% 00 :15 Q8H ABX, Medica l (NS) 50 mL First dose Bra [facility] MINI-BAG on [place] 11/02/21 at 1700, Until Discontinu ed, Administer over 4 Hours, 50 mL
Reas on for Anti-Infec tive: Empiric Therapy for Suspected Infection< br>Empi josh Therapy Site: Respirator y
Durat ion of therapy: 72 hours multivitami Yes 5mL 5 mL, Unive rs n oral 11-02 Enteral, ity of solution 5 14:00: DAILY, [place] mL 00 First dose Medical on [facility] 11/02/21 at 0900, Until Discontinu ed, Routine polyethylen Yes 17g 17 g, Unive rs e glycol 11-02 Enteral, ity of 3350 powder 14:00: DAILY, [place] 17 g 00 First dose Medical (after Branch last modificati on) on [place] 11/02/21 at 0900, Until Discontinu ed, Routine clopidogreL Yes 75mg 75 mg, Univ ers (PLAVIX) 75 11-02 Enteral, ity of mg tablet 14:00: DAILY, [place] 75 mg 00 First dose Medical (after Branch last modificati on) on [place] 11/02/21 at 0900, Until Discontinu ed, Routine baricitinib 2021- No 4mg 4 mg, Univ ers (OLUMIANT) 11-02 0812 Enteral, ity of tablet 4 mg 14:00: 14:18 DAILY, 13 [place] 00 :00 doses, Medical First dose Branch (after last modificati on) on [place] 11/02/21 at 0900, Last dose on Wed11/14/21 at 0900, Routine dexamethaso No 6mg 6 mg, Univ ers ne sod phos 11-02 0808 Intravenou i ty of PF 14:00: 13:29 s, DAILY, [place] injection 6 00 :00 9 doses, Medi natalio mg First dose Branch on [place] 11/02/21 at 0900, Last dose on Wed11/10/21 at 0900, 1 mL ceFEPIme No 1000mg 1,000 mg, U nivers (MAXIPIME) 11-02 IV ity of 1,000 mg in 14:00: 15:17 Piggyback, [place] NaCl 0.9% 00 :00 ONCE, 1 Medical (NS) 50 mL dose, On Branc h MINI-BAG [place] 11/02/21 at 0900, Administer over 30 Minutes, 50 mL
Reas on for Anti-Infec tive: Empiric Therapy for Suspected Infection< br>Empiric Therapy Site: Respirator y
Durat ion of therapy: 72 hours propofoL IV No 5ug/kg/ 5-50 Un jefferson infusion 11-02 08-05 min mcg/kg/min ity of 13:48: 18:04 ?127 kg [place] 44 :01 (3.81-38.1 Medical mL/hr), IV Branch Infusion, TITRATE, Sedation-R ASS score (0 to -1), Starting on [place] 11/02/21 at 0848
In itiate infusion at 5 mcg/kg/min and titrate by 5 mcg/kg/min every 30 seconds to 10 minutes to goal sedation score. Maximum dose = 50 mcg/kg/min . If goal not maintained at maximum allowed dose, contact prescriber . &nbs p;Tubing and unused portions of vials should be discarded after 12 hours.
sulfur 2021- No [id number] 5mL 5 mL, Univ ers hexafluorid 11-02 Intravenou i ty of e microsphr 13:30: 13:30 s, ONCE, 1 [place] (LUMASON) 00 :00 dose, On Medica l injection 5 [place] Branch mL 11/02/21 at 0830, Routine
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 Restricted medication : KERRIE MARLEY enoxaparin 2021- No 40mg 40 mg, [facility] [place] [facility] ers (LOVENOX) 11-02 Subcutaneo ity of injection 12:45: 00:22 us, Q24H, [place] 40 mg 00 :20 First dose Medical on [place] Branch 11/02/21 at 0745, Until Discontinu ed, Routine vancomycin 2021- No 15mg/kg 1,500 mg Univers 1500 mg in 11-02 (rounded ity of NS 500 mL 12:30: 18:15 from 1,905 [place] IV 00 :43 mg = 15 Medical [place] mg/kg ?127 Bran ch RTU 1,500 kg), IV mg [place], Q12H ABX, First dose on [place] 11/02/21 at 0730, Until Discontinu ed, Administer over 90 Minutes, 500 mL
Reas on for Anti-Infec tive: Documented Infection< br>Documen glo Infection Site: Blood
D uration of Therapy: 7 days NaCl 0.9% 2021- No 1000mL at 42 [facility] [place] [facility] ers (NS) IV 11-02 08-03 mL/hr, IV ity of infusion 11:30: 20:48 Infusion, Luis as 1,000 mL 00 :06 CONTINUOUS Medic al , Starting Branch on [place] 11/02/21 at 0630, Until Wed11/05/21 at 1548, Routine atorvastati Yes 80mg 80 mg, [facility] [place] [facility] ers n (LIPITOR) 11-02 Enteral, ity of tablet 80 02:00: QHS, First [place] mg 00 dose Medical (after Branch last modificati on) on 11/01/21 at 2100, Until Discontinu ed, Routine furosemide 2021- No 20mg 20 mg, [facility] [place] [facility] ers (LASIX) 11-02 Slow IV ity of injection 01:15: 00:43 Push, [place] 20 mg 00 :00 ONCE, 1 Medical dose, On Branch 11/01/21 at 2015, Routine D10W 10 % 2021- No at 500 Unive rs IV infusion 11-02 mL/hr, IV it y of 01:15: 03:14 Infusion, [place] 00 :00 CONTINUOUS Medical , Starting Branch on 11/01/21 at 2014, Until 11/01/21 at 2214, Routine insulin 2021- No 10U 10 Units, Univ ers regular 11-02 IV Push, ity of human 01:15: 03:22 ONCE, 1 [place] (HUMULIN R) 00 :00 dose, On Medi natalio injection Sat Branch 10 Units 11/01/21 at 2014, Routine sodium 2021- No 15g 15 g, Univers polystyrene 11-02 Oral, ity of sulfonate 01:15: 00:43 ONCE, 1 [place] (KAYEXALATE 00 :00 dose, On Medi natalio ) 15 Sat Branch gram/60 mL 11/01/21 at suspension 2014, 15 g Routine sennosides- 0 Yes 2{tbl} 2 tablet, Univers docusate 11-02 Enteral, ity of sodium 01:00: BID, First [place] (SENOKOT-S) 00 dose Medical 8.6-50 mg (after Branch per tablet last 2 tablet modificati on) on 11/01/21 at 2000, Until Discontinu ed, Routine docusate Yes 100mg 100 mg, Unive rs (COLACE) 50 11-02 Enteral, ity of mg/5 mL 01:00: BID, First [place] solution 00 dose Medical 100 mg (after Branch last modificati on) on 11/01/21 at 2000, Until Discontinu ed, Routine famotidine 2021- No 20mg 20 mg, Univ ers (PEPCID [id number] Slow IV ity of (PF)) 01:00: 16:25 Push, [place] injection 00 :03 Q12H, Medical 20 mg First dose Branch on 11/01/21 at 1999, Until Discontinu ed, Routine ipratropium 2021- No 3mL 3 mL, Univ ers -albuteroL 11-02 Inhalation it y of (DUONEB) 01:00: 15:26 , QID, [place] 0.5 mg-3 00 :49 First dose Medic al mg(2.5 mg on [facility] Branch base)/3 mL 11/01/21 at nebulizer 2000, solution 3 Until mL Discontinu ed, Routine NaCl 0.9% 2021- No 1000mL at 75 Univ ers (NS) IV 11-01 07-31 mL/hr, IV ity of infusion 23:30: 11:28 Infusion, Luis as 1,000 mL 00 :17 CONTINUOUS Medic al , Starting Branch on [facility] 11/01/21 at 1830, Until 11/02/21 at 0628, Routine Sliding 2021- No Subcutaneo Uni vers Scale 11-01 08-10 us, Q6H, ity of Insulin - 23:00: 13:31 First dose [place] Lispro 00 :03 on [facility] (HumaLOG) + 11/01/21 at Br anch Fsbg 1800, Testing Until Discontinu ed, Routine midazolam 2021- No 5mg 5 mg, IV Uni vers (VERSED) 11-01 0730 Push, ity of injection 5 22:45: 22:15 ONCE, 1 [place] mg 00 :00 dose, On Medical [facility] 11/01/21 at 1745, Routine calcium 2021- No 1g 1 g, IV Univer s gluconate 1 11-0130 Infusion, it y of g in NaCl 22:30: 23:00 at 100 [place] 50 mL 00 :00 mL/hr Medical (ISO-OSM) Administer Bran ch RTU IV over 30 infusion 1 Minutes, g ONCE, 1 dose, On [facility] 11/01/21 at 1730, Routine fentaNYL PF 2021- No 25ug/h 25-200 U nivers (SUBLIMAZE) 11-01 08-07 mcg/hr ity o f STD 2,500 22:24: 16:18 (2.5-20 [place] mcg in NaCl 48 :06 mL/hr), IV Me dical 0.9% (NS) Infusion, Branc h 250 mL TITRATE, infusion CPOT/Pain RTU Scale Goals Determined by Provider, Starting on [facility] 11/01/21 at 1724
In itiate infusion at 25 mcg/hr. Titrate by 25 mcg/hr every 1 minute to 15 minutes to identified goal pain and/or sedation scores. Maximum dose = 200 mcg/hr. If goal not maintained at maximum allowed dose, contact prescriber .
acetaminoph Yes 650mg 650 mg, Un jefferson en 7 Enteral, ity of (TYLENOL) 22:01: Q6HPRN, [place] 160 mg/5 mL 35 Starting Medi natalio oral liquid on Sat Branch 650 mg 11/01/21 at 1701, Until Discontinu ed, Routine, Pain (scale 1-3), Temp > 38.5 C ondansetron Yes 4mg 4 mg, Slow Univers (ZOFRAN 11-01 IV Push, ity of (PF)) 21:58: Q6HPRN, [place] injection 4 21 Starting Medi natalio mg on Sat Branch 11/01/21 at 1658, Until Discontinu ed, Routine, Nausea and Vomiting (N/V) etomidate 2021- No 20mg 20 mg, Unive rs (AMIDATE) 11-01 Slow IV ity of injection 18:30: 18:23 Push, [place] 20 mg 00 :00 ONCE, 1 Medical dose, On Branch 11/01/21 at 1330, STAT rocuronium 2021- No 100mg 100 mg, IV Univers (ZEMURON) 11-01 Push, ity of injection 18:30: 18:24 ONCE, 1 [place] 100 mg 00 :00 dose, On Medical Sat Branch 11/01/21 at 1330, Routine
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 Restricted medication : TL ABARCA dexMEDEtomi 2021- No .2ug/kg 0.2-1.5 Univers dine 400 11-01 07-31 /h mcg/kg/hr ity o f mcg in 0.9 18:26: 12:49 ?127 kg Luis as % NaCl 100 00 :06 (6.35-47.6 Med ical mL 25 mL/hr, Branch (PRECEDEX) rounded to RTU IV 6.35-47.63 infusion mL/hr), IV Infusion, TITRATE, Sedation-R ASS score (0 to -1), Starting on 11/01/21 at 1326
In itiate infusion at 0.2 mcg/kg/hr and titrate by 0.1 mcg/kg/hr every 30 minutes to goal sedation score. Maximum dose = 1.5 mcg/kg/hr. If goal not maintained at maximum allowed dose, contact prescriber .
calcium 2021- No 1g 1 g, IV Univer s gluconate 1 11-01 Infusion, it y of g in NaCl 17:30: 17:23 at 100 [place] 50 mL 00 :00 mL/hr Medical (ISO-OSM) Administer Bran ch RTU IV over 30 infusion 1 Minutes, g ONCE, 1 dose, On 11/01/21 at 1230, Routine NaCl 0.9% 2021- No 500mL at 999 Univ ers (NS) bolus 11-01 mL/hr, 500 it y of infusion 17:15: 17:23 mL, IV [place] 500 mL 00 :00 Infusion, Medical ONCE, 1 Branch dose, On 11/01/21 at 1215, STAT dexamethaso No 10mg 10 mg, Uni vers ne sod phos 11-01 Slow IV ity of PF 16:30: 16:40 Push, [place] injection 00 :00 ONCE, 1 Medical 10 mg dose, On Branch 11/01/21 at 1130, 1 mL dextrose 50 2021- No 1{syrin 50 mL (1 Univers % in water 11-01 ge} Syringe), ity of (D50W) 15:30: 14:34 Slow IV [place] injection 00 :00 Push, Medical 50 mL ONCE, 1 Branch dose, On 11/01/21 at 1030, Routine insulin 2021- No 6U 6 Units, Unive rs regular 11-01 IV Push, ity of human 15:30: 14:34 ONCE, 1 [place] (HUMULIN R) 00 :00 dose, On Medi natalio injection 6 Sat Branch Units 11/01/21 at 1030, Routine piperacilli 2021- No 3.375g 3.375 g, Univers n-tazobacta 11-01 IV ity of m (ZOSYN) 15:00: 15:43 Piggyback, [place] 3.375 g in 00 :00 ONCE, 1 Medica l NaCl 0.9% dose, On Branch (NS) 50 mL Sat MINI-BAG 11/01/21 at 1000, Administer over 30 Minutes, 50 mL
R disha for Anti-Infec tive: Empiric Therapy for Suspected Infection< br>Empiric Therapy Site: Respirator y
Durat ion of therapy: 72 hours NaCl 0.9% No 2000mL at 999 Uni vers (NS) bolus 11-01 mL/hr, ity of infusion 14:30: 15:09 2,000 mL, Luis as 2,000 mL 00 :00 IV Medical Infusion, Branch ONCE, 1 dose, On 11/01/21 at 0930, STAT acetaminoph 2021- No 1000mg 1,000 mg, Univers en 11-0130 Oral, ity of (TYLENOL) 14:15: 14:11 ONCE, 1 [place] tablet 00 :00 dose, On Medical 1,000 mg Sat Branch 11/01/21 at 0915, ELEANOR Lactulose No Notes: Memori a 667 MG/ML 2-05 (Same l Oral 05:36: as:Chronul [place] Solution 00 ac) Acetaminoph Yes 1 tab, PO, Memoria en 325 MG / 2-05 Q4H, PRN l Hydrocodone 05:34: Pain Score [place] Bitartrate 00 1-3, 0 5 MG Oral Refill(s) Tablet [[place] 5/325] doxycycline Yes PO, Memori a hyclate 100 2-05 [id number], 0 l MG Oral 05:33: Refill(s) Dominique nn Tablet 00 Vancomycin No 2001 mg: Me moria 2-05 infuse l 05:00: over 2.5 [place] 00 hours For adult patients only: Round to nearest 250 mg per Medical Staff approval MEDICATION WASTE Product Size: 1000 mg Product Wasted: ___ mg cefdinir No Notes: Memoria 300 MG Oral 2-04 (Same As: l Capsule 17:00: Omnicef) Logan n 00 doxycycline 2022-0 No 100 mg, 2 M emoria hyclate 100 2-04 cap, l MG Oral 17:00: Route: PO, Herm neto Capsule 00 Drug form: CAP, [id number], Dosing Weight 100, kg, Start date: 05/09/21 11:00:00 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, Duration: 5 day, Stop date: 05/13/21 23:00:00 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, ABX Indication : Skin/Soft Tissue Infection, 0 Eliquis No Notes: Memoria 2-03 Same as: l 23:00: Eliquis Jose Francisco Vancomycin No 2000 mg: Me moria 2-03 infuse l 05:00: over 2.5 [place] 00 hours For adult patients only: Round to nearest 250 mg per Medical Staff approval MEDICATION WASTE Product Size: 1000 mg Product Wasted: ___ mg Docusate No Notes: Memoria Sodium 50 2-02 (Same as l MG / 15:00: Senokot-S) [facility], [facility] Equiv. to SHELTER 8.6 MG Brittany-Colac Oral Tablet e. heparin No Notes: Memoria additive 2-01 Total l 25,000 unit 15:21: Concentrat Jose Francisco [14 00 ion = 50 unit/kg/hr] unit/ ml + Premix Total Diluent volume = Sodium 500 ml Chloride Send Med 0.45% 500 Request 2 mL hours prior to next bag Sodium No 250 mL, Memoria Chloride 2-01 Rate: To l 0.9% 15:01: prime line Jose Francisco (titrate) 00 and flush 250 mL remaining blood products., Dosing Weight 100, kg, Route: IV, Total Volume: 250, Priority: Routine, Start Date: 05/06/21 9:01:00 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, Duration: 1 day, Stop date: 05/07/21 9:00:00 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, Replace Every: 24 hr, 0 Insulin No Notes: Memoria Lispro 1-31 (Same as: l 19:26: Humalog) Jose Francisco Roll in palms of hands gently; Do not shake vigorously . WASTE: F/P - Black; E - Municipal Trash Bin Stable for 28 days at room temperatur e. Expires in days from ____Date Vancomycin No 2000 mg: Me moria 05-05 infuse l 05:00: over 2.5 Jose Francisco 00 hours For adult patients only: Round to nearest 250 mg per Medical Staff approval MEDICATION WASTE Product Size: 1000 mg Product Wasted: ___ mg Aspirin No Notes: Memoria 05-04 Take with l 22:42: food. multivitami No Notes: Robert doni n with 05-04 (Same l minerals 15:00: as:Thera-M Her kelley 00 , Theragran- M) WASTE: F/P - Black; E - Municipal Trash Bin Give with food. Zinc No Notes: Memoria Sulfate 05-04 (Zinc l 15:00: sulfate capsule) - 220 mg Zinc sulfate = 50 mg elemental zinc Same as Zinc Sulfate albumin No Notes: Lot Robert doni human 5% 05-04 #: l intravenous 14:25: [place] solution 00 ___ Mfg: (Same as: Plasbumin- 25) "blood product derivative " WASTE: F/P - Red; E -Red MEDICATION WASTE Product Size: 25 gm Product Wasted: ___ gm Calcium No 250 mL, Memoria Chloride 05-04 250 ml/hr, l 0.0014 14:25: Infuse Jose Francisco MEQ/ML / 00 Over: 1 Potassium hr, Route: Chloride IV, 250, 0.004 Drug form: MEQ/ML / INJ, ONCE, Sodium Priority: Chloride STAT, 0.103 Dosing MEQ/ML / Weight 100 Sodium kg, Start Lactate date: 0.028 05/04/21 MEQ/ML 8:25:00 Injectable 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, Stop Solution date: 05/04/21 8:25:00 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, 0 LR IV 1,000 No 1,000 mL, M emoria mL 05-04 Rate: 75 l 14:25: ml/hr, Jose Francisco 00 Infuse over: 13.3 hr, Route: IV, Dosing Weight 100 kg, Total Volume: 1,000, Start date: 05/04/21 8:25:00 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, Duration: 30 day, Stop date: 06/03/21 8:24:00 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, BSA: 2.2 m2, 0 Vancomycin No 2001 mg: Me moria 05-04 infuse l 05:00: over 2.5 hours For adult patients only: Round to nearest 250 mg per Medical Staff approval MEDICATION WASTE Product Size: 1000 mg Product Wasted: ___ mg Vitamin C No Notes: Memori a 05-03 (Same as: l 23:00: Vitamin C) Plavix No Notes: Memoria 05-03 (Same As: l 15:00: Plavix) Dextrose No 12.5 gm, Memor ia 50% Syringe 05-03 25 mL, l (D50W) 13:06: Route: IVP, Drug Form: INJ, Dosing Weight 100, kg, PRN, PRN Blood Glucose Results, Start date: 05/03/21 7:06:00 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, Duration: 30 day, Stop date: 06/02/21 7:05:00 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, 0 Glucagon No 1 mg, Memoria 05-03 Route: IM, l 13:06: Drug form: PDR/INJ, PRN, Dosing Weight 100, kg, PRN Blood Glucose Results, Start date: 05/03/21 7:06:00 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, Duration: 30 day, Stop date: 06/02/21 7:05:00 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, 0 Insulin No Notes: Memoria Lispro 05-03 (Same as: l 13:06: Humalog) Roll in palms of hands gently; Do not shake vigorously . WASTE: F/P - Black; E - Municipal Trash Bin Stable for 28 days at room temperatur e. Expires in days from ____Date Norepinephr No Notes: Robert doni ine 05-03 Same as: l 08:17: Levophed. Administer by either central venous catheter or peripheral ly-inserte d central catheter (PICC) line. ceFAZolin No Route: IV, Me moria (ANES) 05-03 Drug form: l 04:12: INJ, ONCE, Stop date: 05/02/21 22:12:00 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 Enoxaparin No Notes: Memor ia 05-03 (Same as: l 04:00: Lovenox) normal No 1,000 mL, Memori a saline 0.9% 05-03 Rate: 100 l IV 1,000 mL 03:48: ml/hr, Infuse over: 10 hr, Route: IV, Dosing Weight 100 kg, Total Volume: 1,000, Start date: 05/02/21 21:48:00 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, Duration: 30 day, Stop date: 06/01/21 21:47:00 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, BSA: 2.2 m2, 0 glycopyrrol No Route: IV, Memoria ate (ANES) 05-03 Drug form: l 03:47: INJ, ONCE, Stop date: 05/02/21 21:47:00 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 neostigmine No Route: IV, Memoria (ANES) 05-03 Drug form: l 03:47: INJ, ONCE, Stop date: 05/02/21 21:47:00 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 protamine No Route: IV, Me moria (ANES) 05-03 Drug form: l 03:32: INJ, ONCE, Stop date: 05/02/21 21:32:00 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 heparin No Route: IV, Robert doni (ANES) 05-03 Drug form: l 02:56: INJ, ONCE, Stop date: 05/02/21 20:56:00 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 rocuronium No Route: IV, M emoria (ANES) 05-03 Drug form: l 01:59: INJ, ONCE, Stop date: 05/02/21 19:59:00 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 heparin No Route: IV, Robert doni (ANES) 05-03 Drug form: l 01:44: INJ, ONCE, Stop date: 05/02/21 19:44:00 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 ondansetron No Route: IV, Memoria (ANES) 05-03 Drug form: l 01:13: INJ, ONCE, Stop date: 05/02/21 19:13:00 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 lidocaine No Route: IV, Me moria (ANES) 05-03 Drug form: l 00:24: INJ, ONCE, Stop date: 05/02/21 18:24:00 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 rocuronium No Route: IV, M emoria (ANES) 05-03 Drug form: l 00:24: INJ, ONCE, Stop date: 05/02/21 18:24:00 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 ceFAZolin No Route: IV, Me moria (ANES) 05-03 Drug form: l 00:24: INJ, ONCE, Stop date: 05/02/21 18:24:00 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 fentaNYL No Route: IV, Mem oria (ANES) 05-03 Drug form: l 00:14: INJ, ONCE, Stop date: 05/02/21 18:14:00 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 propofol No Route: IV, Mem oria (ANES) 05-03 Drug form: l 00:14: INJ, ONCE, Stop date: 05/02/21 18:14:00 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 Sodium No Route: IV, Memor ia Chloride 05-03 Total l 0.9% IV 00:13: Volume: Jose Francisco (ANES) 1000 00 1,000, mL Start date: 05/02/21 18:13:00 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, Stop date: 05/02/21 19:13:00 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 midazolam No Route: IV, Me moria (ANES) 05-03 Drug form: l 00:09: SOLN, 00 ONCE, Stop date: 05/02/21 18:09:00 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 vancomycin No Route: IV, M emoria (ANES) 1000 05-02 Drug form: l mg 23:53: INJ, Start date: 05/02/21 17:53:00 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, Stop date: 05/02/21 18:53:00 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 Lactated No Route: IV, Mem oria Ringers 05-02 Total l Injection 23:34: Volume: Dominique nn IV (ANES) 00 1,000, 1000 mL Start date: 05/02/21 17:34:00 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, Stop date: 05/02/21 18:34:00 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 LR IV 1,000 No 1,000 mL, M toyaa mL 05-02 Rate: 40 l 21:37: ml/hr, [place] 00 Infuse over: 25 hr, Route: IV, Dosing Weight 100 kg, Total Volume: 1,000, Start date: 05/02/21 15:37:00 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, Duration: 30 day, Stop date: 06/01/21 15:36:00 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, BSA: 2.2 m2, 0 Ceftriaxone No Notes: Robert doni 05-02 (Same As: l 17:00: Rocephin). Jose Francisco Use with 100 mL NS and infuse over 30 min MEDICATION WASTE Product Size: 2000 mg Product Wasted: ___ mg Amlodipine No Notes: Memor ia 05-02 (Same as: l 15:00: Norvasc) Jose Francisco cefepime No Notes: Memoria 05-02 (Same As: l 03:00: Maxipime) Jose Francisco MEDICATION WASTE Product Size: 1000 mg Product Wasted: ___ mg Lidocaine No Notes: Memori a 05-01 Preservati l 22:00: ve free. [place] (Same as: Xylocaine MPF) Sodium No 250 mL, Memoria Chloride 04-30 250 ml/hr, l 0.9% 01:00: Infuse Jose Francisco (Bolus) IV 00 Over: 1 hr, Route: IV, 250, Drug form: INJ, ONCALL, Priority: Routine, Dosing Weight 100 kg, Start date: 04/29/21 19:00:00 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, Duration: 1 doses or times, 0 Sodium No 750 mL, Memoria Chloride 04-30 Rate: 75 l 0.9% IV 750 00:04: ml/hr, Herm neto mL 00 Infuse over: 10 hr, Route: IV, Dosing Weight 100 kg, Total Volume: 750, Start date: 04/29/21 18:04:00 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, Duration: 24 hr, Stop date: 04/30/21 18:03:00 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, BSA: 2.2 m2, 0 Sodium 0 No 250 mL, Memoria Chloride -23 250 ml/hr, l 0.9% 23:00: Infuse Jose Francisco (Bolus) IV 00 Over: 1 hr, Route: IV, 250, Drug form: INJ, ONCALL, Priority: Routine, Dosing Weight 100 kg, Start date: 04/27/21 17:00:00 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, Duration: 1 doses or times, 0 Sodium No 750 mL, [facility] Chloride 04-27 Rate: 75 l 0.9% IV 750 22:34: ml/hr, Herm neto mL 00 Infuse over: 10 hr, Route: IV, Dosing Weight 100 kg, Total Volume: 750, Start date: 04/27/21 16:34:00 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, Duration: 24 hr, Stop date: 04/28/21 16:33:00 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, BSA: 2.2 m2, 0 Glucotrol No Notes: Memori a 04-27 (Same as: l 15:00: Glucotrol) [place] 00 30 min before meals. heparin No Notes: Memoria additive 04-27 Total l 25,000 unit 00:34: Concentrat [place] [14 00 ion = 50 unit/kg/hr] unit/ ml + Premix Total Diluent volume = Sodium 500 ml Chloride Send Med 0.45% 500 Request 2 mL hours prior to next bag Vancomycin No 2000 mg: Me moria 04-26 infuse l 23:00: over 2.5 Jose Francisco 00 hours For adult patients only: Round to nearest 250 mg per Medical Staff approval MEDICATION WASTE Product Size: 1000 mg Product Wasted: ___ mg Santyl No Notes: Memoria - (Same As: l 15:00: Santyl) Jose Francisco 00 Omnipaque No Notes: Memori a 350 04-26 (same l injectable 14:00: as:Omnipaq H ermann solution 00 ue 350). WASTE: F/P - Black; E - Municipal Trash Bin Please No Please Memoria collect 04-25 collect l MRSA PCR 23:33: MRSA PCR Dominique nn nasal swab 00 nasal swab ELEANOR ELEANOR, Reminder, Route: MISC, QSHIFT, Priority: NOW, 04/25/21 17:33:00 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, Duration: 2 day, Stop date: 04/27/21 16:00:00 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, 0 Vancomycin No 2000 mg: Me moria 04-25 infuse l 21:00: over 2.5 Jose Francisco 00 hours For adult patients only: Round to nearest 250 mg per Medical Staff approval MEDICATION WASTE Product Size: 1000 mg Product Wasted: ___ mg ondansetron No Route: IV, Memoria (ANES) 04-25 Drug form: l 19:18: INJ, ONCE, Stop date: 04/25/21 13:18:00 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 ePHEDrine No Route: IV, Me moria (ANES) 04-25 Drug form: l 19:12: INJ, ONCE, Stop date: 04/25/21 13:12:00 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 phenylephri No Route: IV, Memoria ne (ANES) 04-25 Drug form: l 19:02: INJ, ONCE, Stop date: 04/25/21 13:02:00 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 normal No 1,000 mL, Memori a saline 0.9% 04-25 Rate: 100 l IV 1,000 mL 18:58: ml/hr, Infuse over: 10 hr, Route: IV, Dosing Weight 100 kg, Total Volume: 1,000, Start date: 04/25/21 12:58:00 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, Duration: 30 day, Stop date: 05/25/21 12:57:00 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, BSA: 2.2 m2, 0 propofol No Route: IV, Mem oria (ANES) 04-25 Drug form: l 18:51: INJ, ONCE, Stop date: 04/25/21 12:51:00 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 lidocaine No Route: IV, Me moria (ANES) 04-25 Drug form: l 18:51: INJ, ONCE, Stop date: 04/25/21 12:51:00 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 Lactated No Route: IV, Mem oria Ringers 04-25 Total l Injection 18:04: Volume: Dominique nn IV (ANES) 00 1,000, 1000 mL Start date: 04/25/21 12:04:00 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, Stop date: 04/25/21 13:04:00 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 LR IV 1,000 No 1,000 mL, Donte richardson mL 04-25 Rate: 75 l 15:32: ml/hr, Jose Francisco Infuse over: 13.3 hr, Route: IV, Dosing Weight 100 kg, Total Volume: 1,000, Start date: 04/25/21 9:32:00 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, Duration: 30 day, Stop date: 05/25/21 9:31:00 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, BSA: 2.2 m2, 0 Crestor No Notes: Memoria - Same as l 15:00: Crestor [place] 00 Imdur No Notes: Memoria - (Same l 15:00: as:Imdur) [place] 00 24 HR No 25 mg, 1 Memoria Metoprolol - tab, l Tartrate 25 15:00: Route: PO, Jose Francisco MG Extended 00 Drug form: Release ERTAB, Tablet Daily, [Toprol] Start date: 04/25/21 9:00:00 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, Duration: 30 day, Stop date: 05/24/21 9:00:00 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, 0 Allopurinol No Notes: Robert doni 04-25 (Same as: l 15:00: Zyloprim) Amiodarone No Notes: Memor ia 04-25 (Same as: l 15:00: Cordarone) Vitamin D3 No Notes: Memor ia 2000 intl 04-25 Same as : l units oral 15:00: Vitamin D3 H ermann tablet 00 Plavix No Notes: Memoria 04-25 (Same As: l 15:00: Plavix) Finasteride No Notes: Robert doni 04-25 (Same as: l 15:00: Proscar) "Do Not Crush" Women of childbeari ng age should not touch or handle broken tablets [facility] 3:Reproduc tive risk Hazardous Drug -- Refer to safe handling procedure PPE Matrix Furosemide No Notes: Memor ia 40 MG Oral -21 (Same as: l Tablet 15:00: Lasix) August [Lasix] 00 cause GI upset. Give with food or milk. Flomax No Notes: Memoria -21 (Same As: l 15:00: Flomax) "Do Not Crush" Insulin No 10 unit, Memori a Glargine 04-25 Route: l 15:00: SUB-Q, Jose Francisco Daily, Dosing Weight 104.545, kg, Start date: 04/25/21 9:00:00 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, Duration: 30 day, Stop date: 05/24/21 9:00:00 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 Protonix No Notes: Memoria 1-21 Tablet l 13:30: should not be chewed or crushed. (Same as: Protonix) cefepime No Notes: [facility]oria - (Same As: l 04:00: Maxipime) MEDICATION WASTE Product Size: 1000 mg Product Wasted: ___ mg apixaban No Notes: Memoria -21 Same as: l 03:00: Eliquis gabapentin No Notes: Memor ia 300 MG Oral 04-25 (Same as: l Capsule 03:00: Neurontin) Mirtazapine No Notes: Robert doni -21 (Same l 03:00: as:Remeron ) rosuvastati No Notes: Robert doni n - Same as l 03:00: Crestor Nurse to No Nurse to Memor ia bring 04-25 bring l patient own 00:00: patient Her kelley med to own med to pharmacy pharmacy for for labeling labeling, reminder, Drug form: MISC, Route: MISC, Q6H, 04/24/21 18:00:00 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, Duration: 30 day, Stop date: 05/24/21 12:00:00 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, 0 Glyburide No 10 mg, Memori a 20 Route: PO, l 23:00: BID, [place] 00 Dosing Weight 104.545, kg, Start date: 04/24/21 17:00:00 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, Duration: 30 day, Stop date: 05/24/21 9:00:00 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 Glucotrol No Notes: Memori a 1-20 (Same as: l 22:30: Glucotrol) Jose Francisco 00 30 min before meals. magnesium No 420 mg = 1 Me moria oxide 420 1-20 tab, PO, l mg oral 21:27: Daily, # Logan n tablet 00 10 tab, 0 Refill(s) melatonin 5 Yes 5 mg = 1 Me moria mg oral 1-20 tab, PO, l tablet 21:27: Bedtime, Jose Francisco 00 PRN for insomnia, # 60 tab, 0 Refill(s) metoprolol Yes 25 mg = 1 Me moria succinate 1-20 cap, PO, l 25 mg oral 21:27: Daily, 0 Her [place]el[place] capsule, 00 Refill(s) extended release finasteride Yes 5 mg = 1 Me moria 5 mg oral 1-20 tab, PO, l tablet 21:26: Daily, # [place] 00 30 tab, 0 Refill(s) Furosemide Yes 40 mg = 1 Me moria 40 MG Oral 1-20 tab, PO, l Tablet 21:26: Daily, # [place] [Lasix] 00 30 tab, 0 Refill(s) gabapentin Yes 300 mg = 1 M emoria 300 MG Oral 1-20 cap, PO, l Capsule 21:26: Bedtime, # Herm neto 00 90 cap, 1 Refill(s) Lactulose Yes 10 gm = 15 Me moria 667 MG/ML 1-20 mL, PO, l Oral 21:26: BID, PRN [place] Solution 00 constipati on, # 240 mL, 0 Refill(s) AMIODarone Yes 200 mg = 2 M emoria 100 mg oral 1-20 tab, PO, l tablet 21:25: Daily, # [place] 00 60 tab, 0 Refill(s) apixaban 5 0 Yes 5 mg, PO, Me moria mg oral 1-20 Q12H, tab, l tablet 21:25: 0 [place] 00 Refill(s) Vitamin D3 Yes 50 Memoria 2000 intl 1-20 microgram l units oral 21:25: = 1 tab, Her kelley tablet 00 PO, Daily, 0 Refill(s) clopidogrel Yes 75 mg = 1 M emoria 75 MG Oral 1-20 tab, PO, l Tablet 21:25: Daily, # [place] [Plavix] 00 30 tab, 0 Refill(s) rosuvastati Yes 40 mg = 1 M emoria n 40 mg 1-20 tab, PO, l oral tablet 21:24: Bedtime, # [place] 00 90 tab, 3 Refill(s) Mirtazapine Yes 15 mg = 1 M emoria 15 MG Oral 1-20 tab, PO, l Tablet 21:24: Bedtime, # Dominique nn 00 30 tab, 0 Refill(s) allopurinol Yes 100 mg = 1 Memoria 100 mg oral 1-20 tab, PO, l tablet 21:24: Daily, # [place] 00 90 tab, 1 Refill(s) Vitamin B12 Yes PO, Daily, Memoria 1-20 0 l 21:23: Refill(s) [place] 00 Tamsulosin Yes 0.4 mg = 1 M emoria hydrochlori 1-20 cap, PO, l de 0.4 MG 21:23: Daily, # Herm neto Oral 00 30 cap, 0 Capsule Refill(s) [Flomax] glyBURIDE 5 No 10 mg = 2 M emoria mg oral 1-20 tab, PO, l tablet 21:22: BID-Meals, Dominique nn 00 # 60 tab, 1 Refill(s) Imdur 30 mg Yes 30 mg = 1 M emoria oral 1-20 tab, PO, l tablet, 21:07: QAM, Hold Dominique nn extended 00 if release SBP<110, # 30 tab, 0 Refill(s) Vancomycin No 2001 mg: Me moria 1-20 infuse l 21:00: over 2.5 [place] Francisco 00 hours For adult patients only: Round to nearest 250 mg per Medical Staff approval MEDICATION WASTE Product Size: 1000 mg Product Wasted: _500__ mg Ancef + No Notes: Memoria sterile 1-20 (Same As: l water 20 mL 21:00: Ancef, Kefzol) MEDICATION WASTE Product Size: 1000 mg Product Wasted: ___ mg normal No 1,000 mL, Memori a saline 0.9% 1-20 Rate: 100 l IV 1,000 mL 20:50: ml/hr, Infuse over: 10 hr, Route: IV, Dosing Weight 100 kg, Total Volume: 1,000, Start date: 04/24/21 14:50:00 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, Duration: 6 hr, Stop date: 04/25/21 6:49:00 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, BSA: 2.2 m2, 0 Plavix No Notes: Memoria 1-20 (Same As: l 18:55: Plavix) Vancomycin No Notes: Memor ia 1-20 Vancomycin l 18:36: Pharmacy Dosing Protocol PHARMAC Y USE ONLY Note: This is not a medication order. This is a consultati on order. Dextrose No 12.5 gm, Memor ia 50% Syringe 1-20 25 mL, l (D50W) 18:35: Route: IVP, Drug Form: INJ, Dosing Weight 104.545, kg, PRN, PRN Blood Glucose Results, Start date: 04/24/21 12:35:00 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, Duration: 30 day, Stop date: 05/24/21 12:34:00 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, 0 Glucagon No 1 mg, Memoria 1-20 Route: IM, l 18:35: Drug form: PDR/INJ, PRN, Dosing Weight 104.545, kg, PRN Blood Glucose Results, Start date: 04/24/21 12:35:00 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, Duration: 30 day, Stop date: 05/24/21 12:34:00 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, 0 Insulin No Notes: Memoria Lispro 1-20 (Same as: l 18:35: Humalog) Roll in palms of hands gently; Do not shake vigorously . WASTE: F/P - Black; E - Municipal Trash Bin Stable for 28 days at room temperatur e. Expires in days from ____Date Dextrose No 12.5 gm, Memor ia 50% Syringe 1-20 25 mL, l (D50W) 18:33: Route: Jose Francisco IVP, Drug Form: INJ, Dosing Weight 104.545, kg, PRN, PRN Blood Glucose Results, Start date: 04/24/21 12:33:00 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, Duration: 30 day, Stop date: 05/24/21 12:32:00 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, 0 Glucagon No 1 mg, Memoria 1-20 Route: IM, l 18:33: Drug form: [place] PDR/INJ, PRN, Dosing Weight 104.545, kg, PRN Blood Glucose Results, Start date: 04/24/21 12:33:00 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, Duration: 30 day, Stop date: 05/24/21 12:32:00 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, 0 phenol No Notes: [facility]oria 1-20 WASTE: F/P l 18:33: - Black; E [place] - Municipal Trash Bin Docusate No 100 mg, 1 Robert doni Sodium 100 1-20 cap, l MG Oral 18:33: Route: PO, Herm neto Capsule 00 Drug form: [Colace] CAP, BID, Dosing Weight 104.545, kg, PRN Constipati on, Start date: 04/24/21 12:33:00 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, Duration: 30 day, Stop date: 05/24/21 12:32:00 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, 0 Guaifenesin No Notes: Robert doni 20 MG/ML 1-20 (Same as: l Oral 18:33: Robitussin [place] Solution ) Hydralazine No Notes: Robert doni 1-20 (Same as: l 18:33: Apresoline Jose Francisco ) Melatonin 3 No Notes: Robert doni MG Extended 1-20 (Same as: l Release 18:33: Melatonin) Herm neto Tablet 00 Miralax No Notes: Memoria 1-20 Dissolve l 18:33: in 8 oz of Jose Francisco 00 water or juice. (Same as: Miralax) Tums No Notes: [facility]oria 1-20 (Same As: l 18:33: Tums) Calcium Carbonate 500 mg = 200 mg elemental calcium Dose = mg calcium carbonate ( mg elemental calcium) SENOKOT-S No Notes: Memori a 1-20 (Same as l 18:33: Senokot-S) Equiv. to [place] e. Tylenol No Notes: Do Memor ia 1-20 not exceed l 18:33: 4 gm/day. Jose Francisco 00 (Same as: Tylenol) Zofran No Notes: [facility]oria 1-20 (Same as: l 18:33: Zofran) MEDICATION WASTE Product Size: 4 mg Product Wasted: ___ mg Zyrtec No Notes: [facility] 1-20 (Same As: l 18:33: Zyrtec) Acetaminoph No Notes: Robert doni en 325 MG / - (Same as: l Hydrocodone 18:33: [place] Dominique nn Bitartrate 00 325/5) Do 5 MG Oral not exceed Tablet 4gm/day of [[place] acetaminop 5/325] hen. Morphine No Notes: Memoria 1-20 (Same l 18:33: as:MORPhin e Sulfate) Lisinopril No Notes: Memor ia 1-20 (Same as: l 18:33: Prinivil, Zestril) cefepime No Notes: [facility]oria 1-20 (Same As: l 15:28: Maxipime) MEDICATION WASTE Product Size: 1000 mg Product Wasted: ___ mg Vancomycin No 2001 mg: Me moria - infuse l 15:28: over 2.5 hours For adult patients only: Round to nearest 250 mg per Medical Staff approval CLOPIDOGREL 2020-04 Yes Take by NE BISULFATE 04-05 mouth. Health PO 12:03: 16 CLOPIDOGREL 2021-1 Yes Take by NE BISULFATE 04-05 mouth. Health PO 12:03: 16 ALLOPURINOL 2020-04 Yes Take by [place] PO 04-05 mouth. Health 12:03: 15 AMIODARONE 2020-04 Yes Take by NE HCL PO 04-05 mouth. Health 12:03: 15 APIXABAN PO 2020-04 Yes Take by [place] 04-05 mouth. Health 12:03: 15 CHOLECALCIF 2020-04 Yes Take by NE ROSALEE PO 04-05 mouth. Health 12:03: 15 ALLOPURINOL 2020-04 Yes Take by [place] PO 04-05 mouth. Health 12:03: 15 AMIODARONE 2020-04 Yes Take by NE HCL PO 04-05 mouth. Health 12:03: 15 APIXABAN PO 2020-04 Yes Take by [place] 04-05 mouth. Health 12:03: 15 CHOLECALCIF 2020-04 Yes Take by NE ROSALEE PO 04-05 mouth. Health 12:03: 15 ferrous Yes 324mg Take 324 Unive rs gluconate 8-10 mg by ity of 324 mg 18:42: mouth 3 [place] (37.5 mg 20 (three) Medical iron) times Branch tablet daily with meals. ibuprofen Yes 400mg Take 400 Uni vers 400 mg 8-10 mg by ity of tablet 18:42: mouth [place] 20 every 6 Medical (six) Branch hours as needed. Multivitami Yes Take by Uni vers ns with 8-10 mouth. ity of Fluoride 18:42: [place] (MULTI-NEELAM 20 Medical MIN ORAL) Branch glyBURIDE 5 Yes 5mg Take 5 mg U nivers mg tablet 8-10 by mouth ity of 18:42: daily with [place] 20 breakfast. Medical Branch rosuvastati Yes Take by Uni vers n 40 mg 8-10 mouth. ity of CpSP 18:42: [place] 20 Medical Branch LACTULOSE Yes Take by Unive rs ORAL 8-10 mouth. ity of 18:42: [place] 20 Medical Branch ferrous Yes 324mg Take 324 Unive rs gluconate 8-10 mg by ity of 324 mg 18:42: mouth 3 [place] (37.5 mg 20 (three) Medical iron) times Branch tablet daily with meals. ibuprofen Yes 400mg Take 400 Uni vers 400 mg 8-10 mg by ity of tablet 18:42: mouth [place] 20 every 6 Medical (six) Branch hours as needed. Multivitami Yes Take by Uni vers ns with 8-10 mouth. ity of Fluoride 18:42: [place] (MULTI-NEELAM 20 Medical MIN ORAL) Branch glyBURIDE 5 Yes 5mg Take 5 mg U nivers mg tablet 8-10 by mouth ity of 18:42: daily with [place] 20 breakfast. Medical Branch rosuvastati Yes Take by Uni vers n 40 mg 8-10 mouth. ity of CpSP 18:42: [place] [id number] Medical Branch LACTULOSE Yes Take by Unive rs ORAL 8-10 mouth. ity of 18:42: [place] 20 Medical Branch ferrous Yes 324mg Take 324 Unive rs gluconate 8-10 mg by ity of 324 mg 18:42: mouth 3 [place] (37.5 mg 20 (three) Medical iron) times Branch tablet daily with meals. ibuprofen Yes 400mg Take 400 Uni vers 400 mg 8-10 mg by ity of tablet 18:42: mouth [place] 20 every 6 Medical (six) Branch hours as needed. Multivitami Yes Take by Uni vers ns with 8-10 mouth. ity of Fluoride 18:42: [place] (MULTI-NEELAM 20 Medical MIN ORAL) Branch glyBURIDE 5 Yes 5mg Take 5 mg U nivers mg tablet 8-10 by mouth ity of 18:42: daily with [place] 20 breakfast. Medical Branch rosuvastati Yes Take by Uni vers n 40 mg 8-10 mouth. ity of CpSP 18:42: [place] 20 Medical Branch LACTULOSE Yes Take by Unive rs ORAL 8-10 mouth. ity of 18:42: [place] 20 Medical Branch ferrous Yes 324mg Take 324 Unive rs gluconate 8-10 mg by ity of 324 mg 18:42: mouth 3 [place] (37.5 mg 20 (three) Medical iron) times Branch tablet daily with meals. ibuprofen Yes 400mg Take 400 Uni vers 400 mg 8-10 mg by ity of tablet 18:42: mouth [place] 20 every 6 Medical (six) Branch hours as needed. Multivitami Yes Take by Uni vers ns with 8-10 mouth. ity of Fluoride 18:42: [place] (MULTI-NEELAM 20 Medical MIN ORAL) Branch glyBURIDE 5 Yes 5mg Take 5 mg U nivers mg tablet 8-10 by mouth ity of 18:42: daily with [place] 20 breakfast. Medical Branch rosuvastati Yes Take by Uni vers n 40 mg 8-10 mouth. ity of CpSP 18:42: Medical Branch LACTULOSE Yes Take by Unive rs ORAL 8-10 mouth. ity of 18:42: 20 Medical Branch isosorbide Yes 30mg Take 30 mg U nivers dinitrate 8-10 by mouth 4 ity of 30 mg 18:37: (four) [place] tablet 35 times Medical daily. Branch isosorbide Yes 30mg Take 30 mg U nivers dinitrate 8-10 by mouth 4 ity of 30 mg 18:37: (four) [place] tablet 35 times Medical daily. Branch isosorbide Yes 30mg Take 30 mg U nivers dinitrate 8-10 by mouth 4 ity of 30 mg 18:37: (four) [place] tablet 35 times Medical daily. Branch isosorbide Yes 30mg Take 30 mg U nivers dinitrate 8-10 by mouth 4 ity of 30 mg 18:37: (four) [place] tablet 35 times Medical daily. Branch furosemide Yes TAKE ONE Uni vers 40 mg 8-02 TABLET BY ity of tablet 00:00: MOUTH [place] 00 DAILY A Medical DIURETIC Branch OR "WATER PILL" HOLD IF SBP <110 furosemide Yes TAKE ONE Uni vers 40 mg 8-02 TABLET BY ity of tablet 00:00: MOUTH [place] 00 DAILY A Medical DIURETIC Branch OR "WATER PILL" HOLD IF SBP <110 furosemide 0 Yes TAKE ONE Uni vers 40 mg 8-02 TABLET BY ity of tablet 00:00: MOUTH [place] 00 DAILY A Medical DIURETIC Branch OR "WATER PILL" HOLD IF SBP <110 furosemide 0 Yes TAKE ONE Uni vers 40 mg 8-02 TABLET BY ity of tablet 00:00: MOUTH [place] 00 DAILY A Medical DIURETIC Branch OR "WATER PILL" HOLD IF SBP <110 furosemide Yes TAKE ONE Uni vers 40 mg 8-02 TABLET BY ity of tablet 00:00: MOUTH [place] 00 DAILY A Medical DIURETIC Branch OR "WATER PILL" HOLD IF SBP <110 furosemide Yes TAKE ONE Uni vers 40 mg 8-02 TABLET BY ity of tablet 00:00: MOUTH [place] 00 DAILY A Medical DIURETIC Branch OR "WATER PILL" HOLD IF SBP <110 furosemide Yes TAKE ONE Uni vers 40 mg 8-02 TABLET BY ity of tablet 00:00: MOUTH [place] 00 DAILY A Medical DIURETIC Branch OR "WATER PILL" HOLD IF SBP <110 lisinopriL Yes 5mg Take 1 Unive rs 5 mg tablet 4-20 tablet by ity of 00:00: mouth [place] 00 daily. Medical Branch tamsulosin Yes .4mg Take 1 Unive rs 0.4 mg 24 4-20 capsule by ity of hr capsule 00:00: mouth [place] 00 daily. Medical Branch amiodarone Yes 200mg Take 40 mL Univers 5 mg/mL 4-20 by mouth ity of oral 00:00: daily. [place] suspension 00 Medical Branch thiamine Yes 100mg Take 1 Univer s 100 mg 4-20 tablet by ity of tablet 00:00: mouth [place] 00 daily. Medical Branch spironolact Yes 12.5mg Take 2.5 Univers one 25 mg/5 4-20 mL by ity of mL oral 00:00: mouth [place] suspension 00 daily. Medical Branch pantoprazol Yes 40mg Take 20 mL Univers e 2 mg/mL 4-20 by mouth ity of oral 00:00: daily. [place] suspension 00 Medical Branch insulin Yes 4U inject 4 Univer s glargine 4-20 Units ity of 100 unit/mL 00:00: under the [place] injection 00 skin Medical daily. Branch cholecalcif Yes 1000U Take 1 Uni vers rosalee, 4-20 tablet by ity of vitamin D3, 00:00: mouth [place] 25 mcg 00 daily. Medical (1,000 Branch unit) tablet aspirin 81 0 Yes 81mg Take 1 Unive rs mg chewable 4-20 tablet by ity of tablet 00:00: mouth [place] 00 daily. Medical Branch lisinopriL 0 Yes 5mg Take 1 Unive rs 5 mg tablet 4-20 tablet by ity of 00:00: mouth [place] 00 daily. Medical Branch tamsulosin Yes .4mg Take 1 Unive rs 0.4 mg 24 4-20 capsule by ity of hr capsule 00:00: mouth [place] 00 daily. Medical Branch amiodarone 0 Yes 200mg Take 40 mL Univers 5 mg/mL 4-20 by mouth ity of oral 00:00: daily. [place] suspension 00 Medical Branch thiamine Yes 100mg Take 1 Univer s 100 mg 4-20 tablet by ity of tablet 00:00: mouth [place] 00 daily. Medical Branch spironolact Yes 12.5mg Take 2.5 Univers one 25 mg/5 4-20 mL by ity of mL oral 00:00: mouth [place] suspension 00 daily. Medical Branch pantoprazol Yes 40mg Take 20 mL Univers e 2 mg/mL 4-20 by mouth ity of oral 00:00: daily. [place] suspension 00 Medical Branch insulin Yes 4U inject 4 Univer s glargine 4-20 Units ity of 100 unit/mL 00:00: under the [place] injection 00 skin Medical daily. Branch folic acid Yes 1mg Take 1 mL Un jefferson 1 mg/mL 4-20 through ity of oral 00:00: enteral [place] solution 00 tube Medical daily. Branch cholecalcif Yes 1000U Take 1 Uni vers rosalee, 4-20 tablet by ity of vitamin D3, 00:00: mouth [place] 25 mcg 00 daily. Medical (1,000 Branch unit) tablet aspirin 81 0 Yes 81mg Take 1 Unive rs mg chewable 4-20 tablet by ity of tablet 00:00: mouth [place] 00 daily. Medical Branch lisinopriL 0 Yes 5mg Take 1 Unive rs 5 mg tablet 4-20 tablet by ity of 00:00: mouth [place] 00 daily. Medical Branch tamsulosin Yes .4mg Take 1 Unive rs 0.4 mg 24 4-20 capsule by ity of hr capsule 00:00: mouth [place] 00 daily. Medical Branch amiodarone 0 Yes 200mg Take 40 mL Univers 5 mg/mL 4-20 by mouth ity of oral 00:00: daily. [place] suspension 00 Medical Branch thiamine 0 Yes 100mg Take 1 Univer s 100 mg 4-20 tablet by ity of tablet 00:00: mouth [place] 00 daily. Medical Branch spironolact 0 Yes 12.5mg Take 2.5 Univers one 25 mg/5 4-20 mL by ity of mL oral 00:00: mouth [place] suspension 00 daily. Medical Branch pantoprazol 2020-0 Yes 40mg Take 20 mL Univers e 2 mg/mL 4-20 by mouth ity of oral 00:00: daily. [place] suspension 00 Medical Branch insulin 0 Yes 4U inject 4 Univer s glargine 4-20 Units ity of 100 unit/mL 00:00: under the [place] injection 00 skin Medical daily. Branch folic acid 0 Yes 1mg Take 1 mL Un jefferson 1 mg/mL 4-20 through ity of oral 00:00: enteral [place] solution 00 tube Medical daily. Branch cholecalcif 0 Yes 1000U Take 1 Uni vers rosalee, 4-20 tablet by ity of vitamin D3, 00:00: mouth [place] 25 mcg 00 daily. Medical (1,000 Branch unit) tablet aspirin 81 0 Yes 81mg Take 1 Unive rs mg chewable 4-20 tablet by ity of tablet 00:00: mouth [place] 00 daily. Medical Branch lisinopriL 0 Yes 5mg Take 1 Unive rs 5 mg tablet 4-20 tablet by ity of 00:00: mouth [place] 00 daily. Medical Branch tamsulosin 0 Yes .4mg Take 1 Unive rs 0.4 mg 24 4-20 capsule by ity of hr capsule 00:00: mouth [place] 00 daily. Medical Branch amiodarone 0 Yes 200mg Take 40 mL Univers 5 mg/mL 4-20 by mouth ity of oral 00:00: daily. [place] suspension 00 Medical Branch thiamine 0 Yes 100mg Take 1 Univer s 100 mg 4-20 tablet by ity of tablet 00:00: mouth [place] 00 daily. Medical Branch spironolact 0 Yes 12.5mg Take 2.5 Univers one 25 mg/5 4-20 mL by ity of mL oral 00:00: mouth [place] suspension 00 daily. Medical Branch pantoprazol Yes 40mg Take 20 mL Univers e 2 mg/mL 4-20 by mouth ity of oral 00:00: daily. [place] suspension 00 Medical Branch insulin Yes 4U inject 4 Univer s glargine 4-20 Units ity of 100 unit/mL 00:00: under the [place] injection 00 skin Medical daily. Branch folic acid Yes 1mg Take 1 mL Un jefferson 1 mg/mL 4-20 through ity of oral 00:00: enteral [place] solution 00 tube Medical daily. Branch cholecalcif Yes 1000U Take 1 Uni vers rosalee, 4-20 tablet by ity of vitamin D3, 00:00: mouth [place] 25 mcg 00 daily. Medical (1,000 Branch unit) tablet aspirin 81 Yes 81mg Take 1 Unive rs mg chewable 4-20 tablet by ity of tablet 00:00: mouth [place] 00 daily. Medical Branch lisinopriL 0 Yes 5mg Take 1 Unive rs 5 mg tablet 4-20 tablet by ity of 00:00: mouth [place] 00 daily. Medical Branch tamsulosin Yes .4mg Take 1 Unive rs 0.4 mg 24 4-20 capsule by ity of hr capsule 00:00: mouth [place] 00 daily. Medical Branch amiodarone Yes 200mg Take 40 mL Univers 5 mg/mL 4-20 by mouth ity of oral 00:00: daily. [place] suspension 00 Medical Branch thiamine Yes 100mg Take 1 Univer s 100 mg 4-20 tablet by ity of tablet 00:00: mouth [place] 00 daily. Medical Branch spironolact Yes 12.5mg Take 2.5 Univers one 25 mg/5 4-20 mL by ity of mL oral 00:00: mouth [place] suspension 00 daily. Medical Branch pantoprazol Yes 40mg Take 20 mL Univers e 2 mg/mL 4-20 by mouth ity of oral 00:00: daily. [place] suspension 00 Medical Branch insulin Yes 4U inject 4 Univer s glargine 4-20 Units ity of 100 unit/mL 00:00: under the [place] injection 00 skin Medical daily. Branch folic acid 2021-0 Yes 1mg Take 1 mL Un jefferson 1 mg/mL 4-20 through ity of oral 00:00: enteral [place] solution 00 tube Medical daily. Branch cholecalcif 0 Yes 1000U Take 1 Uni vers rosalee, 4-20 tablet by ity of vitamin D3, 00:00: mouth [place] 25 mcg 00 daily. Medical (1,000 Branch unit) tablet aspirin 81 0 Yes 81mg Take 1 Unive rs mg chewable 4-20 tablet by ity of tablet 00:00: mouth [place] 00 daily. Medical Branch lisinopriL 0 Yes 5mg Take 1 Unive rs 5 mg tablet 4-20 tablet by ity of 00:00: mouth [place] 00 daily. Medical Branch tamsulosin 0 Yes .4mg Take 1 Unive rs 0.4 mg 24 4-20 capsule by ity of hr capsule 00:00: mouth [place] 00 daily. Medical Branch amiodarone 0 Yes 200mg Take 40 mL [facility] 5 mg/mL 4-20 by mouth ity of oral 00:00: daily. [place] suspension 00 Medical Branch thiamine 0 Yes 100mg Take 1 Univer s 100 mg 4-20 tablet by ity of tablet 00:00: mouth [place] 00 daily. Medical Branch spironolact 0 Yes 12.5mg Take 2.5 Univers one 25 mg/5 4-20 mL by ity of mL oral 00:00: mouth [place] suspension 00 daily. Medical Branch pantoprazol 0 Yes 40mg Take 20 mL Univers e 2 mg/mL 4-20 by mouth ity of oral 00:00: daily. [place] suspension 00 Medical Branch insulin 0 Yes 4U inject 4 Univer s glargine 4-20 Units ity of 100 unit/mL 00:00: under the [place] injection 00 skin Medical daily. Branch folic acid 0 Yes 1mg Take 1 mL [facility] 1 mg/mL 4-20 through ity of oral 00:00: enteral [place] solution 00 tube Medical daily. Branch cholecalcif 0 Yes 1000U Take 1 Uni vers rosalee, 4-20 tablet by ity of vitamin D3, 00:00: mouth [place] 25 mcg 00 daily. Medical (1,000 Branch unit) tablet aspirin 81 2021-0 Yes 81mg Take 1 [facility] rs mg chewable 4-20 tablet by ity of tablet 00:00: mouth [place] 00 daily. Medical Branch lisinopriL 0 Yes 5mg Take 1 [facility] 5 mg tablet 4-20 tablet by ity of 00:00: mouth [place] 00 daily. Medical Branch tamsulosin 0 Yes .4mg Take 1 [facility] rs 0.4 mg 24 4-20 capsule by ity of hr capsule 00:00: mouth [place] 00 daily. Medical Branch amiodarone 0 Yes 200mg Take 40 mL [facility] 5 mg/mL 4-20 by mouth ity of oral 00:00: daily. [place] suspension 00 Medical Branch thiamine Yes 100mg Take 1 Univer s 100 mg 4-20 tablet by ity of tablet 00:00: mouth [place] 00 daily. Medical Branch spironolact Yes 12.5mg Take 2.5 [facility] one 25 mg/5 4-20 mL by ity of mL oral 00:00: mouth [place] suspension 00 daily. Medical Branch pantoprazol Yes 40mg Take 20 mL [facility] e 2 mg/mL 4-20 by mouth ity of oral 00:00: daily. [place] suspension 00 Medical Branch insulin 0 Yes 4U inject 4 Univer s glargine 4-20 Units ity of 100 unit/mL 00:00: under the [place] injection 00 skin Medical daily. Branch folic acid Yes 1mg Take 1 mL [facility] 1 mg/mL 4-20 through ity of oral 00:00: enteral [place] solution 00 tube Medical daily. Branch cholecalcif Yes 1000U Take 1 [facility] vers rosalee, 4-20 tablet by ity of vitamin D3, 00:00: mouth [place] 25 mcg 00 daily. Medical (1,000 Branch unit) tablet lisinopriL 0 Yes 5mg Take 1 [facility] rs 5 mg tablet 4-20 tablet by ity of 00:00: mouth [place] 00 daily. Medical Branch tamsulosin 0 Yes .4mg Take 1 [facility] rs 0.4 mg 24 4-20 capsule by ity of hr capsule 00:00: mouth [place] 00 daily. Medical Branch amiodarone 0 Yes 200mg Take 40 mL [facility] 5 mg/mL 4-20 by mouth ity of oral 00:00: daily. [place] suspension 00 Medical Branch thiamine 0 Yes 100mg Take 1 Univer s 100 mg 4-20 tablet by ity of tablet 00:00: mouth [place] 00 daily. Medical Branch spironolact 2020-0 Yes 12.5mg Take 2.5 [facility] one 25 mg/5 4-20 mL by ity of mL oral 00:00: mouth [place] suspension 00 daily. Medical Branch pantoprazol 2020-0 Yes 40mg Take 20 mL [facility] e 2 mg/mL 4-20 by mouth ity of oral 00:00: daily. [place] suspension 00 Medical Branch insulin 0 Yes 4U inject 4 Univer s glargine 4-20 Units ity of 100 unit/mL 00:00: under the [place] injection 00 skin Medical daily. Branch cholecalcif 0 Yes 1000U Take 1 [facility] vers rosalee, 4-20 tablet by ity of vitamin D3, 00:00: mouth [place] 25 mcg 00 daily. Medical (1,000 Branch unit) tablet lisinopriL 0 Yes 5mg Take 1 [facility] rs 5 mg tablet 4-20 tablet by ity of 00:00: mouth [place] 00 daily. Medical Branch tamsulosin 0 Yes .4mg Take 1 [facility] rs 0.4 mg 24 4-20 capsule by ity of hr capsule 00:00: mouth [place] 00 daily. Medical Branch amiodarone 2020-0 Yes 200mg Take 40 mL [facility] 5 mg/mL 4-20 by mouth ity of oral 00:00: daily. [place] suspension Medical Branch thiamine 2020-0 Yes 100mg Take 1 Univer s 100 mg 4-20 tablet by ity of tablet 00:00: mouth [place] 00 daily. Medical Branch spironolact 2020-0 Yes 12.5mg Take 2.5 [facility] one 25 mg/5 4-20 mL by ity of mL oral 00:00: mouth [place] suspension 00 daily. Medical Branch pantoprazol 2020-0 Yes 40mg Take 20 mL [facility] e 2 mg/mL 4-20 by mouth ity of oral 00:00: daily. [place] suspension 00 Medical Branch insulin 2020-0 Yes 4U inject 4 [facility] s glargine 4-20 Units ity of 100 unit/mL 00:00: under the [place] injection 00 skin Medical daily. Branch cholecalcif 2020-0 Yes 1000U Take 1 [facility] vers rosalee, 4-20 tablet by ity of vitamin D3, 00:00: mouth [place] 25 mcg 00 daily. Medical (1,000 Branch unit) tablet lisinopriL 2020-0 Yes 5mg Take 1 [facility] rs 5 mg tablet 4-20 tablet by ity of 00:00: mouth [place] 00 daily. Medical Branch tamsulosin 2020-0 Yes .4mg Take 1 [facility] rs 0.4 mg 24 4-20 capsule by ity of hr capsule 00:00: mouth [place] 00 daily. Medical Branch amiodarone 2020-0 Yes 200mg Take 40 mL [facility] 5 mg/mL 4-20 by mouth ity of oral 00:00: daily. [place] suspension 00 Medical Branch thiamine 2020-0 Yes 100mg Take 1 [facility]iver s 100 mg 4-20 tablet by ity of tablet 00:00: mouth [place] 00 daily. Medical Branch spironolact 2020-0 Yes 12.5mg Take 2.5 [facility] one 25 mg/5 4-20 mL by ity of mL oral 00:00: mouth [place] suspension 00 daily. Medical Branch pantoprazol 2020-0 Yes 40mg Take 20 mL [facility] e 2 mg/mL 4-20 by mouth ity of oral 00:00: daily. [place] suspension 00 Medical Branch insulin 2020-0 Yes 4U inject 4 [facility] s glargine 4-20 Units ity of 100 unit/mL 00:00: under the [place] injection 00 skin Medical daily. Branch cholecalcif 2020-0 Yes 1000U Take 1 [facility] vers rosalee, 4-20 tablet by ity of vitamin D3, 00:00: mouth [place] 25 mcg 00 daily. Medical (1,000 Branch unit) tablet lisinopriL 2020-0 Yes 5mg Take 1 [facility] rs 5 mg tablet 4-20 tablet by ity of 00:00: mouth [place] 00 daily. Medical Branch tamsulosin 2020-0 Yes .4mg Take 1 [facility] rs 0.4 mg 24 4-20 capsule by ity of hr capsule 00:00: mouth [place] 00 daily. Medical Branch amiodarone 2020-0 Yes 200mg Take 40 mL [facility] 5 mg/mL 4-20 by mouth ity of oral 00:00: daily. [place] suspension 00 Medical Branch thiamine 2020-0 Yes 100mg Take 1 Univer s 100 mg 4-20 tablet by ity of tablet 00:00: mouth [place] 00 daily. Medical Branch spironolact 2020-0 Yes 12.5mg Take 2.5 [facility] one 25 mg/5 4-20 mL by ity of mL oral 00:00: mouth [place] suspension 00 daily. Medical Branch pantoprazol 2020-0 Yes 40mg Take 20 mL [facility] e 2 mg/mL 4-20 by mouth ity of oral 00:00: daily. [place] suspension 00 Medical Branch insulin 0 Yes 4U inject 4 Univer s glargine 4-20 Units ity of 100 unit/mL 00:00: under the [place] injection 00 skin Medical daily. Branch cholecalcif 0 Yes 1000U Take 1 Uni vers rosalee, 4-20 tablet by ity of vitamin D3, 00:00: mouth [place] 25 mcg 00 daily. Medical (1,000 Branch unit) tablet lisinopriL 2020-0 Yes 5mg Take 1 [facility] rs 5 mg tablet 4-20 tablet by ity of 00:00: mouth [place] 00 daily. Medical Branch tamsulosin 2020-0 Yes .4mg Take 1 [facility] rs 0.4 mg 24 4-20 capsule by ity of hr capsule 00:00: mouth [place] 00 daily. Medical Branch amiodarone 2020-0 Yes 200mg Take 40 mL [facility] 5 mg/mL 4-20 by mouth ity of oral 00:00: daily. [place] suspension 00 Medical Branch thiamine 2020-0 Yes 100mg Take 1 Univer s 100 mg 4-20 tablet by ity of tablet 00:00: mouth [place] 00 daily. Medical Branch spironolact 2020-0 Yes 12.5mg Take 2.5 [facility] one 25 mg/5 4-20 mL by ity of mL oral 00:00: mouth [place] suspension 00 daily. Medical Branch pantoprazol 2020-0 Yes 40mg Take 20 mL [facility] e 2 mg/mL 4-20 by mouth ity of oral 00:00: daily. [place] suspension 00 Medical Branch insulin 2020-0 Yes 4U inject 4 Univer s glargine 4-20 Units ity of 100 unit/mL 00:00: under the [place] injection 00 skin Medical daily. Branch cholecalcif 0 Yes 1000U Take 1 Uni vers rosalee, 4-20 tablet by ity of vitamin D3, 00:00: mouth [place] 25 mcg 00 daily. Medical (1,000 Branch unit) tablet aspirin 81 2020-0 Yes 81mg Take 1 [facility] rs mg chewable 4-20 tablet by ity of tablet 00:00: mouth [place] 00 daily. Medical Branch lisinopriL 2020-0 Yes 5mg Take 1 [facility] rs 5 mg tablet 4-20 tablet by ity of 00:00: mouth [place] 00 daily. Medical Branch tamsulosin 0 Yes .4mg Take 1 [facility] rs 0.4 mg 24 4-20 capsule by ity of hr capsule 00:00: mouth [place] 00 daily. Medical Branch amiodarone 0 Yes 200mg Take 40 mL [facility] 5 mg/mL 4-20 by mouth ity of oral 00:00: daily. [place] suspension 00 Medical Branch thiamine 0 Yes 100mg Take 1 [facility] s 100 mg 4-20 tablet by ity of tablet 00:00: mouth [place] 00 daily. Medical Branch spironolact 0 Yes 12.5mg Take 2.5 [facility] one 25 mg/5 4-20 mL by ity of mL oral 00:00: mouth [place] suspension 00 daily. Medical Branch pantoprazol 0 Yes 40mg Take 20 mL [facility] e 2 mg/mL 4-20 by mouth ity of oral 00:00: daily. [place] suspension 00 Medical Branch insulin 0 Yes 4U inject 4 [facility] s glargine 4-20 Units ity of 100 unit/mL 00:00: under the [place] injection 00 skin Medical daily. Branch folic acid 0 Yes 1mg Take 1 mL [facility] 1 mg/mL 4-20 through ity of oral 00:00: enteral [place] solution 00 tube Medical daily. Branch cholecalcif 0 Yes 1000U Take 1 [facility] vers rosalee, 4-20 tablet by ity of vitamin D3, 00:00: mouth [place] 25 mcg 00 daily. Medical (1,000 Branch unit) tablet aspirin 81 2020-0 2021- No 81mg Take 1 Univ ers mg chewable 4-20 08-10 tablet by it y of tablet 00:00: 00:00 mouth [place] 00 :00 daily. Medical Branch folic acid 2020- No 1mg Take 1 mL U nivers 1 mg/mL -20 08-10 through ity of oral 00:00: 00:00 enteral [place] solution 00 :00 tube Medical daily. Branch aspirin 81 2020- No 81mg Take 1 Univ ers mg chewable 4- 08-10 tablet by it y of tablet 00:00: 00:00 mouth [place] 00 :00 daily. Medical Branch folic acid 2020- No 1mg Take 1 mL U nivers 1 mg/mL 20 08-10 through ity of oral 00:00: 00:00 enteral [place] solution 00 :00 tube Medical daily. Branch ibuprofen 2020- No 800mg Take 800 [facility] 800 mg 07-22-19 mg by ity of tablet 17:26: 00:00 mouth [place] 17 :00 every 6 Medical (six) Branch hours as needed. allopurinoL 2020- No 100mg Take 100 [facility] 100 mg 07-22-19 mg by ity of tablet 17:: 00:00 mouth [place] 17 :00 daily. Medical Branch metoprolol 2020- No 25mg Take 25 mg [facility] succinate 07-22- by mouth ity o f XL 25 mg 24 17:26: 00:00 daily. [place] hr tablet 17 :00 Medical Branch metoprolol 2020- No 25mg Take 25 mg [facility] tartrate 25 07-22-19 by mouth 2 i ty of mg tablet 17:: 00:00 (two) [place] 17 :00 times Medical daily. Branch ASPIRIN 2020- No 81mg Take 81 mg Uni vers ORAL 07-22-19 by mouth. ity of 17:26: 00:00 [place] 17 :00 Medical Branch alogliptin 2020- No Take by Uni vers 25 mg Tab 07-22- mouth. ity of 17:26: 00:00 [place] 17 :00 Medical Branch glyBURIDE 5 2020- No 5mg Take 5 mg [facility] mg tablet 07-22- by mouth ity o f 17:26: 00:00 daily with [place] 17 :00 breakfast. Medical Branch cholecalcif 2020- No Unive rs rosalee, 07-2219 ity of vitamin D3, 17:26: 00:00 [place] (CHOLECALCI 17 :00 Medical FEROL, VIT Branch D3,,BULK, MISC) tamsulosin 2020- No Take by Uni vers 0.4 mg 24 07-22 mouth ity of hr capsule 17:26: [facility] finasteride 2020- No 5mg Take 5 mg [facility] 5 mg tablet 07-22- by mouth ity of 17:: 00:00 daily. [place] 17 :00 Medical Branch atorvastati 2020- No 10mg Take 10 mg [facility] n 10 mg 07-22- by mouth ity of tablet 17:: 00:00 at [place] 17 :00 bedtime. Medical Branch lisinopriL 2020- No 10mg Take 10 mg [facility] 10 mg 07-22- by mouth ity of tablet 17:: 00:00 daily. [place] :00 Medical Branch metFORMIN 2020- No 1000mg Take 1,000 [facility] 1,000 mg - 04-19 mg by ity of tablet 17:: 00:00 mouth 2 [place] 17 :00 (two) Medical times Branch daily with meals. gabapentin 2020- No 300mg Take 300 U nivers 300 mg -22 07-19 mg by ity of capsule 17:26: 00:00 mouth 3 [place] 17 :00 (three) Medical times Branch daily. atorvastati Yes 80mg Take 1 Univ ers n 80 mg 4-19 tablet by ity of tablet 00:00: mouth at [place] 00 bedtime. Medical Branch metoprolol Yes 25mg Take 25 mg U nivers succinate 4-19 by mouth 2 ity of XL 25 mg 24 00:00: (two) [place] hr tablet 00 times Medical daily. Branch Okay to cut medication in half to give to patient in smaller pieces apixaban 5 Yes 5mg Take 1 Unive rs mg tablet 4-19 tablet by ity o f 00:00: mouth 2 [place] 00 (two) Medical times Branch daily. sennosides- 2021-0 Yes 2{tbl} Take 2 [facility] docusate 4-19 tablets by ity o f sodium 00:00: mouth 2 [place] 8.6-50 mg 00 (two) Medical per tablet times Branch daily. collagenase Yes Apply to Un je[facility]erson 250 4-19 affected ity of unit/gram 00:00: area(s) [place] ointment 00 SEE-INSTRU Medic al CTIONS. Branch clopidogreL Yes [id number] 75mg Take 1 [facility] 75 mg 4-19 tablet by ity of tablet 00:00: mouth [place] 00 daily. Medical Branch bisacodyL Yes 10mg Insert 1 [facility] ers 10 mg 4-19 Suppositor ity of suppository 00:00: y [place] 00 rectum 2 Medical (two) Branch times daily as needed for Constipati on. Potassium Yes 40meq Take 2 Unive rs Bicarb-Citr 4-19 tablets by it y of ic Acid 00:00: mouth [place] (EFFER-K) 00 daily. Medical effervescen Branch t tablet atorvastati Yes 80mg Take 1 [facility] ers n 80 mg 4-19 tablet by ity of tablet 00:00: mouth at [place] 00 bedtime. Medical Branch metoprolol Yes 125mg Take 5 [facility] ers succinate 4-19 tablets by ity of XL 25 mg 24 00:00: mouth 2 [place] hr tablet 00 (two) Medical times Branch daily. Okay to cut medication in half to give to patient in smaller pieces apixaban 5 Yes 5mg Take 1 [facility] rs mg tablet 4-19 tablet by ity o f 00:00: mouth 2 [place] 00 (two) Medical times Branch daily. sennosides- Yes 2{tbl} Take 2 [facility] docusate 4-19 tablets by ity o f sodium 00:00: mouth 2 [place] 8.6-50 mg 00 (two) Medical per tablet times Branch daily. collagenase Yes Apply to Un [facility] 250 4-19 affected ity of unit/gram 00:00: area(s) [place] ointment 00 SEE-INSTRU Medic al CTIONS. Branch clopidogreL Yes [id number] 75mg Take 1 [facility] 75 mg 4-19 tablet by ity of tablet 00:00: mouth [place] 00 daily. Medical Branch bumetanide Yes 2mg Take 1 [facility] rs 2 mg tablet 4-19 tablet by ity of 00:00: mouth [place] 00 every Medical morning Branch and evening. bisacodyL Yes 10mg Insert 1 [facility] ers 10 mg 4-19 Suppositor ity of suppository 00:00: y [place] 00 rectum 2 Medical (two) Branch times daily as needed for Constipati on. Potassium Yes 40meq Take 2 Un[facility] rs Bicarb-Citr 4-19 tablets by it y of ic Acid 00:00: mouth [place] (EFFER-K) 00 daily. Medical effervescen Branch t tablet atorvastati Yes 80mg Take 1 [facility] ers n 80 mg 4-19 tablet by ity of tablet 00:00: mouth at [place] 00 bedtime. Medical Branch metoprolol Yes 125mg Take 5 [facility] ers succinate 4-19 tablets by ity of XL 25 mg 24 00:00: mouth 2 [place] hr tablet 00 (two) Medical times Branch daily. Okay to cut medication in half to give to patient in smaller pieces apixaban 5 Yes 5mg Take 1 [facility] rs mg tablet 4-19 tablet by ity o f 00:00: mouth 2 [place] 00 (two) Medical times Branch daily. sennosides- Yes 2{tbl} Take 2 [facility] docusate 4-19 tablets by ity o f sodium 00:00: mouth 2 [place] 8.6-50 mg 00 (two) Medical per tablet times Branch daily. collagenase Yes Apply to Un [facility] 250 4-19 affected ity of unit/gram 00:00: area(s) [place] ointment 00 SEE-INSTRU Medic al CTIONS. Branch clopidogreL Yes [id number] 75mg Take 1 [facility] 75 mg 4-19 tablet by ity of tablet 00:00: mouth [place] 00 daily. Medical Branch bumetanide Yes 2mg Take 1 [facility] rs 2 mg tablet 4-19 tablet by ity of 00:00: mouth [place] 00 every Medical morning Branch and evening. bisacodyL Yes 10mg Insert 1 [facility] ers 10 mg 4-19 Suppositor ity of suppository 00:00: y [place] 00 rectum 2 Medical (two) Branch times daily as needed for Constipati on. Potassium Yes 40meq Take 2 Unive rs Bicarb-Citr 4-19 tablets by it y of ic Acid 00:00: mouth [place] (EFFER-K) 00 daily. Medical effervescen Branch t tablet atorvastati Yes 80mg Take 1 [facility] ers n 80 mg 4-19 tablet by ity of tablet 00:00: mouth at [place] 00 bedtime. Medical Branch metoprolol Yes 125mg Take 5 [facility] ers succinate 4-19 tablets by ity of XL 25 mg 24 00:00: mouth 2 [place] hr tablet 00 (two) Medical times Branch daily. Okay to cut medication in half to give to patient in smaller pieces apixaban 5 Yes 5mg Take 1 [facility] rs mg tablet 4-19 tablet by ity o f 00:00: mouth 2 [place] 00 (two) Medical times Branch daily. sennosides- Yes 2{tbl} Take 2 [facility] [place] docusate 4-19 tablets by ity o f sodium 00:00: mouth 2 [place] 8.6-50 mg 00 (two) Medical per tablet times Branch daily. collagenase Yes Apply to Un [facility] 250 4-19 affected ity of unit/gram 00:00: area(s) [place] ointment 00 SEE-INSTRU Medic al CTIONS. Branch clopidogreL Yes [id number] 75mg Take 1 [facility] 75 mg 4-19 tablet by ity of tablet 00:00: mouth [place] 00 daily. Medical Branch bumetanide Yes 2mg Take 1 [facility] rs 2 mg tablet 4-19 tablet by ity of 00:00: mouth [place] 00 every Medical morning Branch and evening. bisacodyL Yes 10mg Insert 1 [facility] ers 10 mg 4-19 Suppositor ity of suppository 00:00: y [place] 00 rectum 2 Medical (two) Branch times daily as needed for Constipati on. Potassium Yes 40meq Take 2 Unive rs Bicarb-Citr 4-19 tablets by it y of ic Acid 00:00: mouth [place] (EFFER-K) 00 daily. Medical effervescen Branch t tablet atorvastati Yes 80mg Take 1 [facility] ers n 80 mg 4-19 tablet by ity of tablet 00:00: mouth at [place] 00 bedtime. Medical Branch metoprolol Yes 125mg Take 5 [facility] ers succinate 4-19 tablets by ity of XL 25 mg 24 00:00: mouth 2 [place] hr tablet 00 (two) Medical times Branch daily. Okay to cut medication in half to give to patient in smaller pieces apixaban 5 Yes 5mg Take 1 Unive rs mg tablet 4-19 tablet by ity o f 00:00: mouth 2 [place] 00 (two) Medical times Branch daily. sennosides- Yes 2{tbl} Take 2 [facility] [place] docusate 4-19 tablets by ity o f sodium 00:00: mouth 2 [place] 8.6-50 mg 00 (two) Medical per tablet times Branch daily. collagenase Yes Apply to Un [facility] 250 4-19 affected ity of unit/gram 00:00: area(s) [place] ointment 00 SEE-INSTRU Medic al CTIONS. Branch clopidogreL Yes [id number] 75mg Take 1 [facility] 75 mg 4-19 tablet by ity of tablet 00:00: mouth [place] 00 daily. Medical Branch bumetanide Yes 2mg Take 1 [facility] rs 2 mg tablet 4-19 tablet by ity of 00:00: mouth [place] 00 every Medical morning Branch and evening. bisacodyL Yes 10mg Insert 1 [facility] ers 10 mg 4-19 Suppositor ity of suppository 00:00: y [place] 00 rectum 2 Medical (two) Branch times daily as needed for Constipati on. Potassium Yes 40meq Take 2 Unive rs Bicarb-Citr 4-19 tablets by it y of ic Acid 00:00: mouth [place] (EFFER-K) 00 daily. Medical effervescen Branch t tablet atorvastati Yes 80mg Take 1 [facility] ers n 80 mg 4-19 tablet by ity of tablet 00:00: mouth at [place] 00 bedtime. Medical Branch metoprolol Yes 125mg Take 5 [facility] ers succinate 4-19 tablets by ity of XL 25 mg 24 00:00: mouth 2 [place] hr tablet 00 (two) Medical times Branch daily. Okay to cut medication in half to give to patient in smaller pieces apixaban 5 Yes 5mg Take 1 Unive rs mg tablet 4-19 tablet by ity o f 00:00: mouth 2 [place] 00 (two) Medical times Branch daily. sennosides- Yes 2{tbl} Take 2 [facility] [place] docusate 4-19 tablets by ity o f sodium 00:00: mouth 2 [place] 8.6-50 mg 00 (two) Medical per tablet times Branch daily. collagenase Yes Apply to Un [facility] 250 4-19 affected ity of unit/gram 00:00: area(s) [place] ointment 00 SEE-INSTRU Medic al CTIONS. Branch clopidogreL Yes [id number] 75mg Take 1 [facility] 75 mg 4-19 tablet by ity of tablet 00:00: mouth [place] 00 daily. Medical Branch bumetanide Yes 2mg Take 1 [facility] rs 2 mg tablet 4-19 tablet by ity of 00:00: mouth [place] 00 every Medical morning Branch and evening. bisacodyL Yes 10mg Insert 1 [facility] ers 10 mg 4-19 Suppositor ity of suppository 00:00: y [place] 00 rectum 2 Medical (two) Branch times daily as needed for Constipati on. Potassium Yes 40meq Take 2 Unive rs Bicarb-Citr 4-19 tablets by it y of ic Acid 00:00: mouth [place] (EFFER-K) 00 daily. Medical effervescen Branch t tablet atorvastati Yes 80mg Take 1 [facility] ers n 80 mg 4-19 tablet by ity of tablet 00:00: mouth at [place] 00 bedtime. Medical Branch metoprolol Yes 25mg Take 25 mg U nivers succinate 4-19 by mouth 2 ity of XL 25 mg 24 00:00: (two) [place] hr tablet 00 times Medical daily. Branch Okay to cut medication in half to give to patient in smaller pieces apixaban 5 Yes 5mg Take 1 Unive rs mg tablet 4-19 tablet by ity o f 00:00: mouth 2 [place] 00 (two) Medical times Branch daily. sennosides- Yes 2{tbl} Take 2 [facility] [place] docusate 4-19 tablets by ity o f sodium 00:00: mouth 2 [place] 8.6-50 mg 00 (two) Medical per tablet times Branch daily. collagenase Yes Apply to Un [facility] 250 4-19 affected ity of unit/gram 00:00: area(s) [place] ointment 00 SEE-INSTRU Medic al CTIONS. Branch clopidogreL Yes [id number] 75mg Take 1 [facility] 75 mg 4-19 tablet by ity of tablet 00:00: mouth [place] 00 daily. Medical Branch bumetanide Yes 2mg Take 1 [facility] rs 2 mg tablet 4-19 tablet by ity of 00:00: mouth [place] 00 every Medical morning Branch and evening. bisacodyL Yes 10mg Insert 1 [facility] ers 10 mg 4-19 Suppositor [facility] (two) Branch times daily as needed for Constipati on. Potassium Yes 40meq Take 2 Unive rs Bicarb-Citr 4-19 tablets by it y of ic Acid 00:00: mouth [place] (EFFER-K) 00 daily. Medical effervescen Branch t tablet atorvastati Yes 80mg Take 1 [facility] ers n 80 mg 4-19 tablet by ity of tablet 00:00: mouth at [place] 00 bedtime. Medical Branch metoprolol Yes 25mg Take 25 mg U nivers succinate 4-19 by mouth 2 ity of XL 25 mg 24 00:00: (two) [place] hr tablet 00 times Medical daily. Branch Okay to cut medication in half to give to patient in smaller pieces apixaban 5 Yes 5mg Take 1 Unive rs mg tablet 4-19 tablet by ity o f 00:00: mouth 2 [place] 00 (two) Medical times Branch daily. sennosides- Yes 2{tbl} Take 2 [facility] [place] docusate 4-19 tablets by ity o f sodium 00:00: mouth 2 [place] 8.6-50 mg 00 (two) Medical per tablet times Branch daily. collagenase Yes Apply to Un [facility] 250 4-19 affected ity of unit/gram 00:00: area(s) [place] ointment 00 SEE-INSTRU Medic al CTIONS. Branch clopidogreL Yes [id number] 75mg Take 1 [facility] 75 mg 4-19 tablet by ity of tablet 00:00: mouth [place] 00 daily. Medical Branch bisacodyL Yes 10mg Insert 1 [facility] ers 10 mg 4-19 Suppositor ity of suppository 00:00: y [place] 00 rectum 2 Medical (two) Branch times daily as needed for Constipati on. Potassium Yes 40meq Take 2 Unive rs Bicarb-Citr 4-19 tablets by it y of ic Acid 00:00: mouth [place] (EFFER-K) 00 daily. Medical effervescen Branch t tablet atorvastati Yes 80mg Take 1 [facility] ers n 80 mg 4-19 tablet by ity of tablet 00:00: mouth at [place] 00 bedtime. Medical Branch metoprolol Yes 25mg Take 25 mg U nivers succinate 4-19 by mouth 2 ity of XL 25 mg 24 00:00: (two) [place] hr tablet 00 times Medical daily. Branch Okay to cut medication in half to give to patient in smaller pieces apixaban 5 Yes 5mg Take 1 Unive rs mg tablet 4-19 tablet by ity o f 00:00: mouth 2 [place] 00 (two) Medical times Branch daily. sennosides- Yes 2{tbl} Take 2 [facility] [place] docusate 4-19 tablets by ity o f sodium 00:00: mouth 2 [place] 8.6-50 mg 00 (two) Medical per tablet times Branch daily. collagenase Yes Apply to Un [facility] 250 4-19 affected ity of unit/gram 00:00: area(s) [place] ointment 00 SEE-INSTRU Medic al CTIONS. Branch clopidogreL Yes [id number] 75mg Take 1 [facility] 75 mg 4-19 tablet by ity of tablet 00:00: mouth [place] 00 daily. Medical Branch bisacodyL Yes 10mg Insert 1 [facility] ers 10 mg 4-19 Suppositor ity of suppository 00:00: y into [place] 00 rectum 2 Medical (two) Branch times daily as needed for Constipati on. Potassium Yes 40meq Take 2 Un[facility] rs Bicarb-Citr 4-19 tablets by it y of ic Acid 00:00: mouth [place] (EFFER-K) 00 daily. Medical effervescen Branch t tablet atorvastati Yes 80mg Take 1 [facility] ers n 80 mg 4-19 tablet by ity of tablet 00:00: mouth at [place] 00 bedtime. Medical Branch metoprolol Yes 25mg Take 25 mg U nivers succinate 4-19 by mouth 2 ity of XL 25 mg 24 00:00: (two) [place] hr tablet 00 times Medical daily. Branch Okay to cut medication in half to give to patient in smaller pieces apixaban 5 Yes 5mg Take 1 Un[facility] rs mg tablet 4-19 tablet by ity o f 00:00: mouth 2 [place] 00 (two) Medical times Branch daily. sennosides- Yes 2{tbl} Take 2 [facility] [place] docusate 4-19 tablets by ity o f sodium 00:00: mouth 2 [place] 8.6-50 mg 00 (two) Medical per tablet times Branch daily. collagenase Yes Apply to [facility] 250 4-19 affected ity of unit/gram 00:00: area(s) [place] ointment 00 SEE-INSTRU Medic al CTIONS. Branch clopidogreL Yes [id number] 75mg Take 1 [facility] 75 mg 4-19 tablet by ity of tablet 00:00: mouth [place] 00 daily. Medical Branch bisacodyL Yes 10mg Insert 1 [facility] ers 10 mg 4-19 Suppositor ity of suppository 00:00: y into [place] 00 rectum 2 Medical (two) Branch times daily as needed for Constipati on. Potassium Yes 40meq Take 2 Un[facility] rs Bicarb-Citr 4-19 tablets by it y of ic Acid 00:00: mouth [place] (EFFER-K) 00 daily. Medical effervescen Branch t tablet atorvastati Yes 80mg Take 1 [facility] ers n 80 mg 4-19 tablet by ity of tablet 00:00: mouth at [place] 00 bedtime. Medical Branch metoprolol 2021-0 Yes 25mg Take 25 mg U nivers succinate 4-19 by mouth 2 ity of XL 25 mg 24 00:00: (two) [place] hr tablet 00 times Medical daily. Branch Okay to cut medication in half to give to patient in smaller pieces apixaban 5 Yes 5mg Take 1 Unive rs mg tablet 4-19 tablet by ity o f 00:00: mouth 2 [place] 00 (two) Medical times Branch daily. sennosides- Yes 2{tbl} Take 2 Un [facility] docusate 4-19 tablets by ity o f sodium 00:00: mouth 2 [place] 8.6-50 mg 00 (two) Medical per tablet times Branch daily. collagenase Yes Apply to Un jefferson 250 4-19 affected ity of unit/gram 00:00: area(s) [place] ointment 00 SEE-INSTRU Medic al CTIONS. Branch clopidogreL Yes [id number] 75mg Take 1 [facility] 75 mg 4-19 tablet by ity of tablet 00:00: mouth [place] 00 daily. Medical Branch bisacodyL Yes 10mg Insert 1 Univ ers 10 mg 4-19 Suppositor ity of suppository 00:00: y into [place] 00 rectum 2 Medical (two) Branch times daily as needed for Constipati on. Potassium Yes 40meq Take 2 Unive rs Bicarb-Citr 4-19 tablets by it y of ic Acid 00:00: mouth [place] (EFFER-K) 00 daily. Medical effervescen Branch t tablet atorvastati Yes 80mg Take 1 Univ ers n 80 mg 4-19 tablet by ity of tablet 00:00: mouth at [place] 00 bedtime. Medical Branch metoprolol Yes 25mg Take 25 mg U nivers succinate 4-19 by mouth 2 ity of XL 25 mg 24 00:00: (two) [place] hr tablet 00 times Medical daily. Branch Okay to cut medication in half to give to patient in smaller pieces apixaban 5 Yes 5mg Take 1 Unive rs mg tablet 4-19 tablet by ity o f 00:00: mouth 2 [place] 00 (two) Medical times Branch daily. sennosides- Yes 2{tbl} Take 2 Un [facility] docusate 4-19 tablets by ity o f sodium 00:00: mouth 2 [place] 8.6-50 mg 00 (two) Medical per tablet times Branch daily. collagenase Yes Apply to Un jefferson 250 4-19 affected ity of unit/gram 00:00: area(s) [place] ointment 00 SEE-INSTRU Medic al CTIONS. Branch clopidogreL Yes [id number] 75mg Take 1 [facility] 75 mg 4-19 tablet by ity of tablet 00:00: mouth [place] 00 daily. Medical Branch bisacodyL Yes 10mg Insert 1 Univ ers 10 mg 4-19 Suppositor ity of suppository 00:00: y into [place] 00 rectum 2 Medical (two) Branch times daily as needed for Constipati on. Potassium Yes 40meq Take 2 Unive rs Bicarb-Citr 4-19 tablets by it y of ic Acid 00:00: mouth [place] (EFFER-K) 00 daily. Medical effervescen Branch t tablet atorvastati Yes 80mg Take 1 Univ ers n 80 mg 4-19 tablet by ity of tablet 00:00: mouth at [place] 00 bedtime. Medical Branch metoprolol Yes 125mg Take 5 Univ ers succinate 4-19 tablets by ity of XL 25 mg 24 00:00: mouth 2 [place] hr tablet 00 (two) Medical times Branch daily. Okay to cut medication in half to give to patient in smaller pieces apixaban 5 Yes 5mg Take 1 Unive rs mg tablet 4-19 tablet by ity o f 00:00: mouth 2 [place] 00 (two) Medical times Branch daily. sennosides- Yes 2{tbl} Take 2 [facility] docusate 4-19 tablets by ity o f sodium 00:00: mouth 2 [place] 8.6-50 mg 00 (two) Medical per tablet times Branch daily. collagenase Yes Apply to Un je[facility] 250 4-19 affected ity of unit/gram 00:00: area(s) [place] ointment 00 SEE-INSTRU Medic al CTIONS. Branch clopidogreL Yes [id number] 75mg Take 1 [facility] 75 mg 4-19 tablet by ity of tablet 00:00: mouth [place] 00 daily. Medical Branch bumetanide Yes 2mg Take 1 Unive rs 2 mg tablet -19 tablet by ity of 00:00: mouth [place] 00 every Medical morning Branch and evening. bisacodyL Yes 10mg Insert 1 Univ ers 10 mg -19 Suppositor ity of suppository 00:00: y into [place] 00 rectum 2 Medical (two) Branch times daily as needed for Constipati on. Potassium Yes 40meq Take 2 Unive rs Bicarb-Citr 4-19 tablets by it y of ic Acid 00:00: mouth [place] (EFFER-K) 00 daily. Medical effervescen Branch t tablet bumetanide 202- No 2mg Take 1 Univ ers 2 mg tablet 07-22 08-10 tablet by it y of 00:00: 00:00 mouth [place] 00 :00 every Medical morning Branch and evening. bumetanide 2020- No 2mg Take 1 Univ ers 2 mg tablet 07-22 08- tablet by it y of 00:00: 00:00 mouth [place] 00 :00 every Medical morning Branch and evening. insulin Yes 4U 4 Units, Univer s glargine 4-18 Subcutaneo ity o f (LANTUS 14:00: us, DAILY, [place] U-100) 00 First dose Medical injection 4 (after Branch Units last modificati on) on 07/21/20 at 0900, Until Discontinu ed, Routine metoprolol Yes 125mg 125 mg, Uni vers succinate 4-18 Oral, BID, ity of XL (TOPROL 01:00: First dose [place] XL) tablet 00 (after Medical 125 mg last Branch modificati on) on 07/20/20 at 2000, Until Discontinu ed, Routine pantoprazol Yes 40mg 40 mg, Univ ers e 4-17 Oral, ity of (PROTONIX) 14:00: DAILY, [place] 2 mg/mL 00 First dose Medica l oral (after Branch suspension last 40 mg modificati on) on 07/20/20 at 0900, Until Discontinu ed, Routine aspirin Yes 81mg 81 mg, Univers chewable 4-17 Oral, ity of tablet 81 14:00: DAILY, [place] mg 00 First dose Medical (after Branch last modificati on) on 07/20/20 at 0900, Until Discontinu ed magnesium 2020- No 2g 2 g, IV Univ ers sulfate in 07-20 Piggyback, it y of water 2 12:15: 15:10 ONCE, 1 [place] gram/50 mL 00 :00 dose, Sat Medi natalio (4 %) 07/20/20 at Branch infusion 2 0715, g Routine insulin 2020- No 4U 4 Units, Unive rs glargine 07-20 Subcutaneo ity of (LANTUS 01:00: 22:23 us, BID, [place] U-100) 00 :41 First dose Medical injection 4 (after Branch Units last modificati on) on Wed07/19/20 at 2000, Until Discontinu ed, Routine amiodarone 0 Yes 200mg 200 mg, Uni vers (CORDARONE) 4-16 Oral, ity of 5 mg/mL 14:00: DAILY, [place] oral 00 First dose Medical suspension (after Branch 200 mg last modificati on) on Wed07/19/20 at 0900, Until Discontinu ed, Routine thiamine 0 Yes 100mg 100 mg, Unive rs (VITAMIN 4-16 Oral, ity of B1) tablet 14:00: DAILY, [place] 100 mg 00 First dose Medical (after Branch last modificati on) on Wed07/19/20 at 0900, Until Discontinu ed, Routine lisinopriL 0 Yes 5mg 5 mg, Univer s (PRINIVIL,Z 4-16 Oral, ity of ESTRIL) 14:00: DAILY, [place] tablet 5 mg 00 First dose Me dical (after Branch last modificati on) on Wed07/19/20 at 0900, Until Discontinu ed, Routine cholecalcif 0 Yes 1000U 1,000 Univ ers rosalee 4-16 Units, ity of (vitamin 14:00: Oral, [place] D3) tablet 00 DAILY, Medical 1,000 Units First dose Br anch (after last modificati on) on Wed07/19/20 at 0900, Until Discontinu ed, Routine metoprolol 2020- No 100mg 100 mg, Un [facility] succinate 07-19 04-17 Oral, BID, ity of XL (TOPROL 13:00: 16:42 First dose [place] XL) tablet 00 :16 (after Medical 100 mg last Branch modificati on) on Wed07/19/20 at 0800, Until Discontinu ed, Routine metoprolol 2020- No 50mg 50 mg, Univ ers (LOPRESSOR) 07-19-16 Oral, ity of 10 mg/mL 03:00: 02:54 ONCE, 1 [place] oral 00 :00 dose, [facility] Medical suspension 07/18/20 at [facility] nch 50 mg 0, Routine atorvastati Yes 80mg 80 mg, Univ ers n (LIPITOR) 16 Oral, QHS, it y of tablet 80 02:00: First dose [place] mg 00 (after Medical last Branch modificati on) on Wed07/18/20 at 2100, Until Discontinu ed, Routine sennosides- Yes 2{tbl} 2 tablet, Univers docusate 16 Oral, BID, ity o f sodium 01:00: First dose [place] (SENOKOT-S) 00 (after Medica l 8.6-50 mg last Branch per tablet modificati 2 tablet on) on Wed07/18/20 at 2000, Until Discontinu ed, Routine bumetanide Yes 2mg 2 mg, Univer s (BUMEX) 07-18 Oral, ity of tablet 2 mg 22:00: QAM+PM, [place] 00 First dose Medical (after Branch last modificati on) on Wed07/18/20 at 1700, Until Discontinu ed, Routine hydrALAZINE 2020- No 25mg 25 mg, Uni vers (APRESOLINE 07-18-16 Oral, Q8H, i ty of ) tablet 25 19:00: 11:21 First dose [place] mg 00 :47 (after Medical last Branch modificati on) on Wed07/18/20 at 1400, Until Discontinu ed, Routine collagenase 0 Yes Topical Uni vers (SANTYL) 15 (Apply To ity of ointment 16:28: Affected [place] 14 Areas), Medical SEE-INSTRU Branch CTIONS, Starting Alessandra 07/18/20 at 1128, Until Discontinu ed, Routine KCL Yes 40meq 40 mEq, Univers (KLOR-CON 15 Oral, ity of M20) tablet 14:00: DAILY, [place] 40 mEq 00 First dose Medical on [place] Branch 07/18/20 at 0900, Until Discontinu ed, Routine Sliding Yes Subcutaneo Univ ers Scale 4-15 us, TID ity of Insulin - 02:00: MEALS+HS, [place] Lispro 00 First dose Medical (HumaLOG) + (after Branch Fsbg last Testing modificati on) on Wed07/17/20 at 2100, Until Discontinu ed, Routine hydrALAZINE 2020- No 50mg 50 mg, Uni vers (APRESOLINE 07-17 Oral, Q8H, i ty of ) tablet 50 19:00: 13:52 First dose [place] mg 00 :24 (after Medical last Branch modificati on) on Wed07/17/20 at 1400, Until Discontinu ed, Routine isosorbide 2020- No 30mg 30 mg, Univ ers dinitrate 07-17 Oral, ity of (ISORDIL) 17:00: 16:42 TIDHOL, [place] tablet 30 00 :16 First dose Medi natalio mg (after Branch last modificati on) on Wed07/17/20 at 1200, Until Discontinu ed, Routine metoprolol 2020- No 100mg 100 mg, Un jeff[place] succinate 07-17 Oral, BID, ity of XL (TOPROL 16:15: 01:53 First dose [place] XL) tablet 00 :26 (after Medical 100 mg last Branch modificati on) on Wed07/17/20 at 1115, Until Discontinu ed, Routine insulin 2020- No 2U 2 Units, Unive rs lispro 07-17 Subcutaneo ity of (human) 13:30: 22:04 us, TID [place] (HumaLOG 00 :09 MEALS, Medical U-100) First dose Branch injection 2 (after Units last modificati on) on Wed07/17/20 at 0830, Until Discontinu ed, Routine Potassium No 60meq 60 mEq, Uni vers Bicarb-Citr 07-17 Enteral, ity of ic Acid 11:45: 11:10 ONCE, 1 [place] (EFFER-K) 00 :00 dose, Wed Medic al effervescen 07/17/20 at Br anch t tablet 60 0645, mEq Routine insulin No 5U 5 Units, Unive rs glargine 07-17 Subcutaneo ity of (LANTUS 01:00: 22:05 us, BID, [place] U-100) 00 :24 First dose Medical injection 5 (after Branch Units last modificati on) on Wed07/16/20 at 1999, Until Discontinu ed, Routine metoprolol No 75mg 75 mg, Univ ers succinate 07-17 Oral, BID, ity of XL (TOPROL 01:00: 14:17 First dose [place] XL) tablet 00 :40 (after Medical 75 mg last Branch modificati on) on Wed07/16/20 at 1999, Until Discontinu ed, Routine insulin 2020- No 1U 1 Units, Unive rs lispro 07-16 Subcutaneo ity of (human) 18:15: 21:58 us, TID [place] (HumaLOG 00 :19 MEALS, Medical U-100) First dose Branch injection 1 on Wed Units 07/16/20 at 1315, Until Discontinu ed, Routine apixaban Yes 5mg 5 mg, Univers (ELIQUIS) 07-16 Oral, BID, ity of tablet 5 mg 16:44: First dose [place] 48 on Medical 07/16/20 at Branch 2000, Until Discontinu ed, Routine metoprolol No 25mg 25 mg, Univ ers succinate 07-16 Oral, ity of XL (TOPROL 16:00: 18:37 ONCE, 1 [place] XL) tablet 00 :00 dose, Medi natalio 25 mg 07/16/20 at Branch 1100, Routine lisinopriL 2020- No 5mg 5 mg, Unive rs (PRINIVIL,Z 07-16 Oral, ity of ESTRIL) 14:15: 16:12 DAILY, [place] tablet 5 mg 00 :11 First dose Me dical on Wed07/16/20 at 0915, Until Discontinu ed, Routine bumetanide 2020- No 3mg 3 mg, Unive rs (BUMEX) 07-16 Oral, ity of tablet 3 mg 14:00: 21:57 QAM+PM, [place] 00 :03 First dose Medical (after Branch last modificati on) on Wed07/16/20 at 0900, Until Discontinu ed, Routine insulin No 4U 4 Units, Unive rs glargine 07-16 Subcutaneo ity of (LANTUS 14:00: 21:58 us, DAILY, [place] U-100) 00 :19 First dose Medical injection 4 (after Branch Units last modificati on) on Wed07/16/20 at 0900, Until Discontinu ed, Routine Sliding No Subcutaneo Uni vers Scale 07-15 us, Q4H, ity of Insulin - 21:00: 23:09 First dose [place] Lispro 00 :52 (after Medical (HumaLOG) + last Branch Fsbg modificati Testing on) on Wed07/15/20 at 1600, Until Discontinu ed, Routine isosorbide 2020- No 40mg 40 mg, Univ ers dinitrate 07-15 Oral, ity of (ISORDIL) 17:00: 14:17 TIDHOL, [place] tablet 40 00 :40 First dose Medi natalio mg (after Branch last modificati on) on Wed07/15/20 at 1200, Until Discontinu ed, Routine metoprolol 2020- No 50mg 50 mg, Univ ers succinate 07-15 Oral, BID, ity of XL (TOPROL 13:00: 14:50 First dose [place] XL) tablet 00 :26 (after Medical 50 mg last Branch modificati on) on Wed07/15/20 at 0800, Until Discontinu ed, Routine KCL No 40meq 40 mEq, IV Unive rs (POTASSIUM 07-15 Piggyback, it y of CHLORIDE) 11:30: 11:23 ONCE, 1 [place] 40 mEq in 00 :00 dose, Mon Medic al NaCl 0.9% 07/15/20 at [facility] ch (NS) 250 mL 0630, 250 piggyback mL metoprolol 2020- No 25mg 25 mg, Univ ers succinate 07-15-12 Oral, BID, ity of XL (TOPROL 01:00: 12:20 First dose [place] XL) tablet 00 :52 (after Medical 25 mg last Branch modificati on) on 07/14/20 at 2000, Until Discontinu ed, Routine folic acid Yes 1mg 1 mg, Univer s (FOLATE) 1 10 Enteral, ity o f mg/mL oral 14:00: DAILY, [place] solution 1 00 First dose Med ical mg on Sat Branch 07/13/20 at 0900, Until Discontinu ed, Routine cholecalcif 2020- No 1000U 1,000 Uni vers rosalee 07-13-15 Units, ity of (vitamin 14:00: 16:12 Enteral, [place] D3) tablet 00 :11 DAILY, Medical 1,000 Units First dose Br anch on 07/13/20 at 0900, Until Discontinu ed, Routine thiamine 2020- No 100mg 100 mg, Univ ers (VITAMIN 07-13-15 Enteral, ity of B1) tablet 14:00: 16:12 DAILY, [place] 100 mg 00 :11 First dose Medical on Sat Branch 07/13/20 at 0900, Until Discontinu ed, Routine Potassium 2020- No 40meq 40 mEq, Uni vers Bicarb-Citr 07-13 Enteral, ity of ic Acid 12:00: 12:51 ONCE, 1 [place] (EFFER-K) 00 :00 dose, Sat Medic al effervescen 07/13/20 at Br anch t tablet 40 0700, mEq Routine Potassium 2020- No 20meq 20 mEq, Uni vers Bicarb-Citr 07-12 Enteral, ity of ic Acid 12:00: 12:41 ONCE, 1 [place] (EFFER-K) 00 :00 dose, Fri Medic al effervescen 07/12/20 at [facility] t tablet 20 0700, mEq Routine spironolact Yes 12.5mg 12.5 mg, Univers one 07-11 Oral, ity of (CAROSPIR) 18:45: DAILY, [place] 25 mg/5 mL 00 First dose Med ical oral on [facility] suspension 07/11/20 at 12.5 mg 1345, Until Discontinu ed, Routine clopidogreL Yes [id number] 75mg 75 mg, Univers (PLAVIX) 07-11 Oral, ity of tablet 75 14:00: DAILY, [place] mg 00 First dose Medical on [facility] Branch 07/11/20 at 0900, Until Discontinu ed, Routine Potassium 2020- No 20meq 20 mEq, Uni vers Bicarb-Citr 07-11 Enteral, ity of ic Acid 12:15: 13:24 ONCE, 1 [place] (EFFER-K) 00 :00 dose, [facility] Medic al effervescen 07/11/20 at [facility] t tablet 20 0715, mEq Routine metoprolol 2020- No 12.5mg 12.5 mg, Univers succinate 07-10 Oral, BID, ity of XL (TOPROL 16:00: 15:00 First dose [place] XL) tablet 00 :32 on [facility] Medical 12.5 mg 07/10/20 at Branch 1100, Until Discontinu ed, Routine clopidogreL 2020- No [id number] 600mg 600 mg, Univers (PLAVIX) 07-10 Oral, ity of tablet 600 12:00: 13:16 ONCE, 1 [place] mg 00 :00 dose, [facility] Medical 07/10/20 at Branch 0700, Routine
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 Restricted medication : MOTIWALA, AFAQ Potassium 2020- No 20meq 20 mEq, Uni vers Bicarb-Citr 07-10 Oral, ity of ic Acid 11:45: 10:58 ONCE, 1 [place] (EFFER-K) 00 :00 dose, [facility] Medic al effervescen 07/10/20 at [facility] t tablet 20 0645, mEq Routine KCL 2020- No 40meq 40 mEq, IV Unive rs (POTASSIUM 07-10 Piggyback, it y of CHLORIDE) 11:45: 11:28 ONCE, 1 [place] 40 mEq in 00 :00 dose, Wed Medic al NaCl 0.9% 07/10/20 at [facility] h (NS) 0645, 250 piggyback mL ticagrelor 2020- No [id number] 90mg 90 mg, Univers (BRILINTA) 07-10 04-07 Oral, BID, it y of tablet 90 01:00: 13:16 2 doses, [place] mg 00 :00 First dose Medical on Wed07/09/20 at 2000, Last dose on Wed07/10/20 at 0800, Routine tirofiban 2020- No [id number] .15ug/k 0.15 Univers (AGGRASTAT) 07-09 04-06 g/min mcg/kg/min ity of 5 mg in 100 18:15: 20:14 ?111.2 kg [place] mL NS (RTU) 00 :00 (20.016 Medic al IV infusion mL/hr, Branch rounded to 20.02 mL/hr), IV Infusion, CONTINUOUS , Starting Wed07/09/20 at 1315, For 2 hours
C rCl > 60 mL/minute: &nbs p;Maintena nce infusion: 0.15 mcg/kg/min imtiaz continued for up to 18 hours.&nbs p; CO NTINUOUS for: 2 hours (MAX 18 hours)
ticagrelor 2020- No Oral, Unive rs (BRILINTA) 07-09 04-06 TITRATE - ity of tablet 18:02: 18:02 FOR [place] 28 :28 PROCEDURE Medical USE, 1 Branch dose, Starting Wed07/09/20 at 1302, Until Wed07/09/20 at 1302, Routine ibuprofen 0 Yes 800mg Take 800 Uni vers 800 mg 4-06 mg by ity of tablet 17:55: mouth [place] 16 every 6 Medical (six) Branch hours as needed. allopurinoL Yes 100mg Take 100 U nivers 100 mg 4-06 mg by ity of tablet 17:55: mouth [place] 16 daily. Medical Branch metoprolol Yes 25mg Take 25 mg U nivers succinate -06 by mouth ity of XL 25 mg 24 17:55: daily. [place] hr tablet Medical Branch metoprolol Yes 25mg Take 25 mg U nivers tartrate 25 4-06 by mouth 2 it y of mg tablet 17:55: (two) [place] [address] times Medical daily. Branch ASPIRIN Yes 81mg Take 81 mg Univ ers ORAL 4-06 by mouth. ity of 17:55: [place] [address] Medical Branch alogliptin Yes Take by Univ ers 25 mg Tab 4-06 mouth. ity of 17:55: [place] [address] Medical Branch glyBURIDE 5 0 Yes 5mg Take 5 mg U nivers mg tablet 4-06 by mouth ity of 17:55: daily with [place] [address] breakfast. Medical Branch cholecalcif Yes Univer s rosalee, 4-06 ity of vitamin D3, 17:55: [place] (CHOLECALCI Medical FEROL, VIT Branch D3,,BULK, MISC) tamsulosin Yes Take by Univ ers 0.4 mg 24 4-06 mouth ity of hr capsule 17:55: daily. [address] Branch finasteride 0 Yes 5mg Take 5 mg U nivers 5 mg tablet 4-06 by mouth ity of 17:55: daily. [place] [address] Medical Branch atorvastati 0 Yes 10mg Take 10 mg Univers n 10 mg 4-06 by mouth ity of tablet 17:55: at [place] [address] bedtime. Medical Branch lisinopriL Yes 10mg Take 10 mg U nivers 10 mg 4-06 by mouth ity of tablet 17:55: daily. [place] [address] Medical Branch metFORMIN 2020-0 Yes 1000mg Take 1,000 Univers 1,000 mg 4-06 mg by ity of tablet 17:55: mouth 2 [place] [address] (two) Medical times Branch daily with meals. gabapentin 2020-0 Yes 300mg Take 300 Un jeff[place] 300 mg 4-06 mg by ity of capsule 17:55: mouth 3 [place] [address] (three) Medical times Branch daily. heparin 2020-0 2020- No Slow IV Univer s 1,000 4-06 04-06 Push, ity of unit/mL 17:51: 17:51 TITRATE - [place] injection 13 :13 FOR Medical PROCEDURE Branch USE, 1 dose, Starting 07/09/20 at 1251, Until Tue 21 at 1251, Routine heparin 2020- No Slow IV Univer s 1,000 07-09- Push, ity of unit/mL 17:32: 17:32 TITRATE - [place] injection 22 :22 FOR Medical PROCEDURE Branch USE, 1 dose, Starting 07/09/20 at 1232, Until 07/09/20 at 1232, Routine heparin 2020- No Slow IV Univer s 1,000 07-09- Push, ity of unit/mL 16:33: 16:33 TITRATE - [place] injection 29 :29 FOR Medical PROCEDURE Branch USE, 1 dose, Starting 07/09/20 at 1133, Until 07/09/20 at 1133, Routine heparin 2020- No Slow IV Univer s 1,000 07-09 Push, ity of unit/mL 16:25: 16:25 TITRATE - [place] injection 41 :41 FOR Medical PROCEDURE Branch USE, 1 dose, Starting 07/09/20 at 1125, Until 07/09/20 at 1125, Routine heparin 2020- No Slow IV Univer s 1,000 07-09 Push, ity of unit/mL 15:41: 15:41 TITRATE - [place] injection 35 :35 FOR Medical PROCEDURE Branch USE, 1 dose, Starting 07/09/20 at 1041, Until 07/09/20 at 1041, Routine nitroglycer 2020- No Intravenou Univers in (TRIDIL) 07-09 s, TITRATE i ty of 2 mg in 10 15:41: 15:41 - FOR [place] mL D5W for 13 :13 PROCEDURE Medi natalio Cardiac USE, 1 Branch Cath dose, Starting 07/09/20 at 1041, Until 07/09/20 at 1041, Routine lidocaine 2020- No Infiltrati U nivers 1% (PF) 07-09- on, ity of (XYLOCAINE) 15:33: 15:33 TITRATE - [place] injection 05 :05 FOR Medical PROCEDURE Branch USE, 1 dose, Starting 4/6/21 at 1033, Until [facility] 07/09/20 at 1033, Routine lidocaine 2020- No Infiltrati U nivers 1% (PF) 07-09 on, ity of (XYLOCAINE) 15:17: 15:17 TITRATE - [place] injection 00 :00 FOR Medical PROCEDURE Branch USE, 1 dose, Starting Wed07/09/20 at 1017, Until Wed07/09/20 at 1017, Routine bumetanide 2020- No 3mg 3 mg, [facility] rs (BUMEX) 07-09 Oral, ity of tablet 3 mg 14:00: 15:09 QAM+PM, [place] 00 :49 First dose Medical on [facility] Branch 07/09/20 at 0900, Until Discontinu ed, Routine Potassium No 40meq 40 mEq, Uni vers Bicarb-Citr 07-09 Enteral, ity of ic Acid 11:45: 11:01 ONCE, 1 [place] (EFFER-K) 00 :00 dose, [facility] Medic al effervescen 07/09/20 at [facility] t tablet 40 0645, mEq Routine insulin 2020- No 10U 10 Units, [facility] [place] [facility] ers glargine 07-09 Subcutaneo ity of (LANTUS 01:00: 20:15 us, BID, [place] U-100) 00 :03 First dose Medical injection (after Branch 10 Units last modificati on) on Wed07/08/20 at 2000, Until Discontinu ed, Routine meropenem 2020- No 500mg 500 mg, IV Univers (MERREM) 07-09 Piggyback, ity of 500 mg in 00:30: 15:16 Administer [place] NaCl 0.9% 00 :12 over 60 Medical (NS) 100 mL Minutes, Bran ch MINI-BAG Q8H ABX, First dose on Wed07/08/20 at 1930, Until Discontinu ed, ELEANOR
Re stricted use approved by: YUE 8TH FLOOR
R disha for Anti-Infec tive: Empiric Therapy for Suspected Infection< br>Empiric Therapy Site: Other
O ther site: fever
D uration of therapy: 7 days vancomycin 2020- No 15mg/kg 1,000 mg Univers (VANCOCIN) 07-09 (rounded ity of 1,000 mg in 00:30: 15:16 from 957 [place] NaCl 0.9% 00 :12 mg = 15 Medical (NS) 250 mL mg/kg Branch VIAL-MATE ?63.8 kg IV [place] piggyback weight), IV Piggyback, Q12H ABX, First dose on Wed07/08/20 at 1930, Until Discontinu ed, 250 mL
Reas on for Anti-Infec tive: Empiric Therapy for Suspected Infection< br>Empiric Therapy Site: Other
O ther site: fever unknown orign
D uration of therapy: 7 days insulin 2020- No 2U 2 Units, Unive rs glargine 07-08 Subcutaneo ity of (LANTUS 20:45: 20:05 us, ONCE, [place] U-100) 00 :00 1 dose, Medical injection 2 Wed07/08/20 Br anch Units at 1545, Routine hydrALAZINE 2020- No 75mg 75 mg, Uni vers (APRESOLINE 07-08 Oral, Q8H, i ty of ) tablet 75 19:00: 14:17 First dose [place] mg 00 :40 (after Medical last Branch modificati on) on Wed07/08/20 at 1400, Until Discontinu ed, Routine metOLazone 2020- No 5mg 5 mg, Unive rs (ZAROXOLYN) 07-08 Enteral, ity of tablet 5 mg 16:30: 16:42 ONCE, 1 [place] 00 :[place] dose, [facility] 07/08/20 at Branch 1130, Routine hydrALAZINE 2020- No 25mg 25 mg, Uni vers (APRESOLINE 07-08 Oral, ity of ) tablet 25 15:17: 16:42 ONCE, 1 [place] mg 00 :00 dose, [facility] 07/08/20 at Branch 1030, Routine metOLazone 2020- No 5mg 5 mg, Unive rs (ZAROXOLYN) 07-07-04 Enteral, ity of tablet 5 mg 15:45: 16:46 ONCE, 1 [place] 00 :00 dose, [facility] 07/07/20 at Branch 1045, Routine potassium No 40meq 40 mEq, Uni vers chloride 40 07-06 04-04 Intravenou i ty of mEq in 100 22:30: 02:34 s, ONCE, 1 [place] mL IVPB 00 :00 dose, [facility] 07/06/20 at Branch 1730, 100 mL Potassium 2020- No 40meq 40 mEq, Uni vers Bicarb-Citr 07-06-04 Oral, Q1H, i ty of ic Acid 22:00: 01:07 4 doses, [place] (EFFER-K) 00 :00 First dose Medi natalio effervescen on [facility] Branch t tablet 40 07/06/20 at mEq 1700, Last dose on [facility] 07/06/20 at 2000, Routine metOLazone 2020- No 5mg 5 mg, Unive rs (ZAROXOLYN) 07-06 Enteral, ity of tablet 5 mg 16:15: 16:00 ONCE, 1 [place] 00 :00 dose, [facility] 07/06/20 at Branch 1115, Routine sennosides- 2020- No 2{tbl} 2 tablet, Univers docusate 07-06 04-15 Enteral, ity of sodium 13:00: 16:12 BID, First [place] (SENOKOT-S) 00 :11 dose Medical 8.6-50 mg (after Branch per tablet last 2 tablet modificati on) on [facility] 07/06/20 at 0800, Until Discontinu ed, Routine potassium 2020- No 40meq 40 mEq, Uni vers chloride 40 07-06 04-03 Intravenou i ty of mEq in 100 11:30: 15:53 s, ONCE, 1 [place] mL IVPB 00 :00 dose, [facility] 07/06/20 at Branch 0630, 100 mL vancomycin 2020- No 1000mg 1,000 mg, Univers (VANCOCIN) 07-06-03 IV ity of 1,000 mg in 05:00: 09:26 Piggyback, [place] NaCl 0.9% 00 :52 Q12H ABX, Medic al (NS) 250 mL First dose Br anch VIAL-MATE (after IV last piggyback modificati on) on 07/06/20 at 0000, Until Discontinu ed, 250 mL
Reas on for Anti-Infec tive: Empiric Therapy for Suspected Infection< br>Empiric Therapy Site: Blood
D uration of therapy: 72 hours potassium 2020- No 40meq 40 mEq, Uni vers chloride 40 07-06 Intravenou i ty of mEq in 100 03:15: 06:16 s, ONCE, 1 [place] mL IVPB 00 :00 dose, Fri Medical 07/05/20 at Branch 2215, 100 mL iohexol 2020- No [id number] 120mL 120 mL, Univers (OMNIPAQUE 07-05 Intravenou it y of 350 22:45: 22:32 s, ONCE, 1 [place] BULK-150 00 :00 dose, Fri Medica l mL) 07/05/20 at [place] injection 1745, 120 mL Routine bisacodyL Yes 10mg 10 mg, Univer s (DULCOLAX) 07-05 Rectal, ity of suppository 15:13: BIDPRN, Luis as 10 mg 24 Starting Medical 07/05/20 Branch at 1013, Until Discontinu ed, Routine, Constipati on potassium 2020- No 40meq 40 mEq, Uni vers chloride 40 07-05 Intravenou i ty of mEq in 100 11:45: 15:43 s, ONCE, 1 [place] mL IVPB 00 :00 dose, Fri Medical 07/05/20 at Branch 0645, 100 mL Potassium 2020- No 40meq 40 mEq, Uni vers Bicarb-Citr 07-05 Oral, ity of ic Acid 11:30: 14:20 ONCE, 1 [place] (EFFER-K) 00 :00 dose, Fri Medic al effervescen 07/05/20 at [facility] t tablet 40 0630, mEq Routine polyethylen 2020- No 17g 17 g, Univ ers e glycol 07-05 Enteral, ity of 3350 06:30: 08:02 ONCE, 1 [place] (MIRALAX) 00 :00 dose, Fri Medic al powder 17 g 07/05/20 at [facility] 0130, Routine acetaminoph No 1000mg 1,000 mg, Univers en ADULT 07-05 IV ity of (OFIRMEV) 03:25: 03:53 Infusion, [place] injection 00 :00 Administer Medi natalio 1,000 mg over 15 Branch Minutes, ONCE, 1 dose, [facility] 07/04/20 at 2230, Routine
Indica tion: Perioperat alex Patient hydrALAZINE 2020- No 50mg 50 mg, Uni vers (APRESOLINE 07-04 Oral, Q8H, i ty of ) tablet 50 19:00: 15:18 First dose [place] mg 00 :14 (after Medical last Branch modificati on) on [facility] 07/04/20 at 1400, Until Discontinu ed, Routine magnesium No 2g 2 g, IV Univ ers sulfate in 07-04 Piggyback, it y of water 2 13:00: 15:24 ONCE, 1 [place] gram/50 mL 00 :00 dose, [facility] Medi natalio (4 %) 07/04/20 at [place] infusion 2 0800, g Routine potassium 2020- No 40meq 40 mEq, Uni vers chloride 40 07-04 Intravenou i ty of mEq in 100 11:30: 15:15 s, ONCE, 1 [place] mL IVPB 00 :00 dose, [facility] Medical 07/04/20 at [place] 0630, 100 mL Potassium 2020- No 40meq 40 mEq, Uni vers Bicarb-Citr 07-04 Oral, ity of ic Acid 11:30: 10:51 ONCE, 1 [place] (EFFER-K) 00 :00 dose, [facility] Medic al effervescen 07/04/20 at [facility] t tablet 40 0630, mEq Routine Potassium 2020- No 40meq 40 mEq, Uni vers Bicarb-Citr 07-04 Enteral, ity of ic Acid 00:15: 02:16 ONCE, 1 [place] (EFFER-K) 00 :00 dose, Wed Medic al effervescen 07/03/20 at Br anch t tablet 40 1915, mEq Routine insulin 2020- No 3U 3 Units, Unive rs lispro 07-0311 Subcutaneo ity of (human) 21:30: 15:00 us, Q4H, [place] (HumaLOG 00 :32 First dose Medic al U-100) (after Branch injection 3 last Units modificati on) on Wed07/03/20 at 1630, Until Discontinu ed, Routine hydrALAZINE 2020- No 20mg 20 mg, Uni vers (APRESOLINE 07-03 Oral, Q8H, i ty of ) tablet 20 19:00: 14:53 First dose [place] mg 00 :25 (after Medical last Branch modificati on) on Wed07/03/20 at 1400, Until Discontinu ed, Routine isosorbide 2020- No 20mg 20 mg, Univ ers dinitrate 07-0312 Oral, ity of (ISORDIL) 17:00: 15:07 TIDHOL, [place] tablet 20 00 :14 First dose Medi natalio mg (after Branch last modificati on) on Wed07/03/20 at 1200, Until Discontinu ed, Routine isosorbide 2020- No 10mg 10 mg, Univ ers dinitrate 07-03 Oral, ity of (ISORDIL) 15:38: 16:04 ONCE, 1 [place] tablet 10 00 :00 dose, Wed Medic al mg 07/03/20 at Branch 1045, Routine hydrALAZINE 2020- No 10mg 10 mg, Uni vers (APRESOLINE 07-03 Oral, ity of ) tablet 10 15:38: 16:04 ONCE, 1 [place] mg 00 :00 dose, Wed Medical 07/03/20 at Branch 1045, Routine Potassium 2020-2020- No 40meq 40 mEq, Uni vers Bicarb-Citr 07-03 Oral, ity of ic Acid 11:45: 13:35 ONCE, 1 [place] (EFFER-K) 00 :00 dose, Wed Medic al effervescen 07/03/20 at Br anch t tablet 40 0645, mEq Routine KCL No 40meq 40 mEq, IV Unive rs (POTASSIUM 07-03 Piggyback, it y of CHLORIDE) 11:45: 11:39 ONCE, 1 [place] 40 mEq in 00 :00 dose, Wed Medic al NaCl 0.9% 07/03/20 at Bran ch (NS) 0645, 250 piggyback mL insulin No 8U 8 Units, Unive rs glargine 07-03 04-05 Subcutaneo ity of (LANTUS 01:00: 19:39 us, BID, [place] U-100) 00 :23 First dose Medical injection 8 on Wed Branch Units 07/02/20 at 2000, Until Discontinu ed, Routine insulin No 2U 2 Units, Unive rs lispro 07-03 Subcutaneo ity of (human) 01:00: 21:20 us, Q4H, [place] (HumaLOG 00 :21 First dose Medic al U-100) on Wed Branch injection 2 07/02/20 at Units 2000, Until Discontinu ed, Routine Sliding No Subcutaneo Uni vers Scale 07-02 04-12 us, Q4H, ity of Insulin - 21:00: 20:15 First dose [place] Lispro 00 :03 (after Medical (HumaLOG) + last Branch Fsbg modificati Testing on) on Wed07/02/20 at 1600, Until Discontinu ed, Routine hydrALAZINE No 10mg 10 mg, Uni vers (APRESOLINE 07-02 Oral, Q8H, i ty of ) tablet 10 19:00: 15:40 First dose [place] mg 00 :40 on Wed Medical 07/02/20 at Branch 1400, Until Discontinu ed, Routine DOBUTamine 2020- No 2.5ug/k 2.5 Uni vers (DOBUTREX) 07-02 04-03 g/min mcg/kg/min i ty of 500 mg in 17:36: 16:49 ?111.2 kg [place] 250 mL 01 :57 (8.34 Medical (Fixed mL/hr), IV Branch Dose) D5W Infusion, infusion TITRATE, RTU set by , Starting Wed07/02/20 at 1236
Initiate infusion at 2.5 mcg/kg/min . &nb sp;Increas e by 1 mcg/kg/min every 15 minutes as needed to reach and maintain goal blood pressure.& nbsp;&nbsp ;Maximum dose = 20 mcg/kg/min . If goal not maintained at maximum allowed dose, contact prescriber .
vancomycin No 1250mg 1,250 mg, Univers 1250 mg in 07-02 IV ity of NS 250 mL 17:00: 04:57 Piggyback, [place] RTU IV 00 :54 Q12H ABX, Medical Piggyback First dose Bran ch 1,250 mg (after last modificati on) on Wed07/02/20 at 1200, Until Discontinu ed
Reas on for Anti-Infec tive: Empiric Therapy for Suspected Infection< br>Empiric Therapy Site: Blood
D uration of therapy: 72 hours isosorbide No 10mg 10 mg, Univ ers dinitrate 07-02 Oral, ity of (ISORDIL) 17:00: 15:40 TIDHOL, [place] tablet 10 00 :40 First dose Medi natalio mg on Wed07/02/20 at 1200, Until Discontinu ed, Routine Sliding No Subcutaneo Uni vers Scale 07-02 us, TID ity of Insulin - 13:30: 20:51 MEALS+HS, [place] Lispro 00 :10 First dose Medical (HumaLOG) + (after Branch Fsbg last Testing modificati on) on Wed07/02/20 at 0830, Until Discontinu ed, Routine magnesium No 4g 4 g, IV Univ ers sulfate in 07-02 Piggyback, it y of water 4 12:30: 11:23 ONCE, 1 [place] gram/50 mL 00 :00 dose, Wed Medi natalio (8 %) IV 07/02/20 at Branc h Piggyback 4 0730, g Routine Potassium 2020- No 40meq 40 mEq, Uni vers Bicarb-Citr 07-02 Oral, ity of ic Acid 12:30: 11:23 ONCE, 1 [place] (EFFER-K) 00 :00 dose, Medic al effervescen 07/02/20 at Br anch t tablet 40 0730, mEq Routine potassium No 40meq 40 mEq, Uni vers chloride 40 07-02 Intravenou i ty of mEq in 100 12:30: 17:19 s, ONCE, 1 [place] mL IVPB 00 :00 dose, Tue Medical 07/02/20 at Branch 0730, 100 mL acetaminoph Yes 650mg 650 mg, Un jefferson en 07-02 Oral, ity of (TYLENOL) 05:14: Q4HPRN, [place] 160 mg/5 mL 53 Starting Medi natalio liquid 650 Wed Branch mg 07/02/20 at 0014, Until Discontinu ed, Routine, Temp > 38.5 C insulin 2020- No 3U/h 3 Units/hr Uni vers regular 07-01 04-05 (3 mL/hr), ity o f human 22:47: 19:39 IV [place] (HUMULIN R) 00 :34 Infusion, Med ical 100 Units TITRATE, Branch in NaCl Parameters 0.9% (NS) in Admin. 100 mL Instr., infusion Starting 07/01/20 at 1747
In itiation of insulin drip:&nbsp ; If BG >180 mg/dL x2, begin continuous intravenou s infusion of regular Insulin (100 units/100 mL NS) at the following rate:&nbsp ; &nb sp; 1 unit/hr (1 mL/hr) if initial BG > 180 mg/dL but <= 220 mg/dL.&nbs p;2 units/hr (2 mL/hr) if initial BG > 220 mg/dL.&nbs p; Ch nan BG at least every hour until normalized (three consecutiv e BG measuremen ts greater than 140 mg/dL and <= 180 mg/dL).&nb sp; I f BG is normalized , obtain BG Q2H and PRN. Achieve and maintain normoglyce harris with the following treatment table &n bsp;For BG <= 70 mg/dL, stop insulin infusion, assure adequate glucose intake, give 50 mL (1 amp) D50W IV bolus and check BG in 15 min. Noti fy ICU guest house manager (Refer to initiation section to restart insulin).& nbsp;&nbsp ;For BG < 140 mg/dL, stop insulin and check BG in 30 min (Refer to initiation section to restart insulin).& nbsp;&nbsp ;For BG > 140 mg/dL but <= 180 mg/dL, recheck BG in 1 hour if changes, recheck BG in 2 hours if stable for 3 consecutiv e readings.& nbsp;&nbsp ;If BG is steady no rate change needed and recheck BG in 2 hours.&nbs p; If BG falls by > 20 mg/dL from previous reading or decreases with 3 consecutiv e measuremen ts then reduce insulin infusion by 0.5 to 1 unit/hr, recheck BG in 1 hour.&nbsp ; &nb sp; F or BG > 180 mg/dL, recheck BG in 1 hour.&nbsp ; If BG falls by < 50 mg/dL from previous measure then increase insulin infusion by 1 to 2 units/hr, recheck BG in 1 hour.&nbsp ; If BG falls by => 50 mg/dL from previous measure then no rate change needed, recheck BG in 1 hour.&nbsp ; Not gabriel ICU Print Developer if BG remains > 220 mg/dL for longer than 4 hours despite treatment.
dextrose 50 Yes 50mL 50 mL, Univ ers % in water 07-01 Slow IV ity of (D50W) 21:47: Push, PRN [place] injection 00 - SEE Medical 50 mL INSTRUCTIO Branch NS, 1 dose, Starting 07/01/20 at 1647, Until Discontinu ed, Routine, Blood Glucose <= 60, For use with Normoglyce harris [facility] e - ICU Patients DOBUTamine 2020- No 2.5ug/k 2.5 Uni vers (DOBUTREX) 07-01 g/min mcg/kg/min i ty of 500 mg in 19:47: 13:33 ?111.2 kg [place] 250 mL 44 :24 (8.34 Medical (Fixed mL/hr), IV Branch Dose) D5W Infusion, infusion TITRATE, RTU set rate by , Starting [facility] 07/01/20 at 1447
In itiate infusion at 2.5 mcg/kg/min . &nb sp;Increas e by 1 mcg/kg/min every 15 minutes as needed to reach and maintain goal blood pressure.& nbsp;&nbsp ;Maximum dose = 20 mcg/kg/min . If goal not maintained at maximum allowed dose, contact prescriber .
lidocaine 2020- No 5mL 5 mL, Univer s 1% (PF) 07-01 Subcutaneo ity o f (XYLOCAINE) 15:45: 20:45 , ONCE, [place] injection 5 00 :00 1 dose, Medic al mL [facility] 07/01/20 at 1045, Routine NaCl 0.9% Yes 10mL 10 mL, Univer s (NS) 07-01 Slow IV ity of injection 15:32: Push, PRN, [place] 10 mL 31 Starting Medical [facility] 07/01/20 at 1032, Until Discontinu ed, Routine, line maintenanc e bumetanide 2020- No 1mg/h 1 mg/hr (5 Univers (BUMEX) 10 07-01 04-05 mL/hr), IV it y of mg in D5W 15:30: 17:54 Infusion, [place] 50 mL 00 :43 CONTINUOUS Medical infusion , Starting Bran h [facility] 07/01/20 at 1030 Potassium 2020- No 40meq 40 mEq, Uni vers Bicarb-Citr 07-01 Oral, ity of ic Acid 13:30: 16:45 ONCE, 1 [place] (EFFER-K) 00 :00 dose, Mon Medic al effervescen 07/01/20 at Br anch t tablet 40 0830, mEq Routine insulin 2020- No 5U 5 Units, Unive rs lispro 07-01 Subcutaneo ity of (human) 12:30: 12:30 us, ONCE, [place] (HumaLOG 00 :00 1 dose, Medical U-100) Mon Branch injection 5 07/01/20 at Units 0730, Routine NORepinephr 2020- No .05ug/k 0.05-1.5 Univers ine 07-01 03-30 g/min mcg/kg/min ity of (LEVOPHED) 12:26: 11:49 ?111.2 kg [place] 32 mg in 57 :27 (2.6063-78 Medic al NaCl 0.9% .1875 Branch (NS) 250 mL mL/hr, infusion rounded to 2.61-78.19 mL/hr), IV Infusion, TITRATE, MAP Goal > or = 65 mmHg, Starting Wed07/01/20 at 0726
In itiate titration at 0.05 mcg/kg/min . &nb sp;Increas e by 0.01 mcg/kg/min every 30 seconds to 5 minutes as needed to reach and maintain goal blood pressure.& nbsp;&nbsp ;Maximum dose = 1.5 mcg/kg/min . &am p;nbsp;If goal not maintained at maximum allowed dose, contact prescriber .
Sliding 2020- No Subcutaneo Uni vers Scale 07-01 us, Q4H, ity of Insulin - 09:00: 21:51 First dose [place] Lispro 00 :54 (after Medical (HumaLOG) + last Branch Fsbg modificati Testing on) on Wed07/01/20 at 0400, Until Discontinu ed, Routine Potassium 2020- No 40meq 40 mEq, Uni vers Bicarb-Citr 07-01 Oral, ity of ic Acid 06:59: 08:17 ONCE, 1 [place] (EFFER-K) 00 :00 dose, Mon Medic al effervescen 07/01/20 at Br anch t tablet 40 0200, mEq Routine propofoL IV 2020- No 5ug/kg/ 5-50 Un jefferson infusion 07-01 04-09 min mcg/kg/min ity of 03:02: 11:35 ?111.2 kg [place] 56 :16 (3.336-33. Medical 36 mL/hr, Branch rounded to 3.34-33.36 mL/hr), IV Infusion, TITRATE, Sedation-R ASS score (0 to -1), Starting [place] 06/30/20 at 2202
In itiate infusion at 5 mcg/kg/min and titrate by 5 mcg/kg/min every 30 seconds to 10 minutes to goal sedation score. Maximum dose = 50 mcg/kg/min . If goal not maintained at maximum allowed dose, contact prescriber . &nbs p;Tubing and unused portions of vials should be discarded after 12 hours.
dexMEDEtomi 2020- No .2ug/kg 0.2-1.5 Univers dine 400 07-01 /h mcg/kg/hr ity o f mcg in 0.9 02:00: 16:02 ?111.2 kg [place] % NaCl 100 49 :43 (5.56-41.7 Med ical mL mL/hr), IV Branch (PRECEDEX) Infusion, RTU IV TITRATE, infusion Sedation-R ASS score (0 to -1), Starting [place] 06/30/20 at 2100
In itiate infusion at 0.2 mcg/kg/hr and titrate by 0.1 mcg/kg/hr every 30 minutes to goal sedation score. Maximum dose = 1.5 mcg/kg/hr. If goal not maintained at maximum allowed dose, contact prescriber .
Potassium 2020- No 40meq 40 mEq, Uni vers Bicarb-Citr 06-30 Oral, ity of ic Acid 21:45: 21:59 ONCE, 1 [place] (EFFER-K) 00 :00 dose, [place] Medic al effervescen 06/30/20 at Br anch t tablet 40 1645, mEq Routine lidocaine 2020- No 10mL 10 mL, Unive rs 1% (PF) 06-30 Infiltrati ity o f (XYLOCAINE) 18:30: 17:50 on, ONCE, [place] injection 00 :00 1 dose, Medical 10 mL [place] Branch 06/30/20 at 1330, Routine NORepinephr 2020- No .05ug/k 0.05-1.5 Univers ine 3-28 03-29 g/min mcg/kg/min ity of (LEVOPHED) 17:05: 12:28 ?111.2 kg [place] 16 mg in 34 :51 (5.5-15 Medic al NaCl 0.9% 6.375 Branch (NS) 250 mL mL/hr, infusion rounded to 5.21-156.3 8 mL/hr), IV Infusion, TITRATE, MAP Goal > or = 65 mmHg, Starting Wed06/30/20 at 1205
In itiate titration at 0.05 mcg/kg/min . &nb sp;Increas e by 0.01 mcg/kg/min every 30 seconds to 5 minutes as needed to reach and maintain goal blood pressure.& nbsp;&nbsp ;Maximum dose = 1.5 mcg/kg/min . &nb sp;If goal not maintained at maximum allowed dose, contact prescriber .
meropenem No 500mg 500 mg, IV Univers (MERREM) 06-30 0403 Piggyback, ity of 500 mg in 17:00: 12:07 Administer [place] NaCl 0.9% 00 :02 over 60 Medical (NS) 100 mL Minutes, Bran ch MINI-BAG Q6H ABX, First dose on Wed06/30/20 at 1200, Until Discontinu ed, ELEANOR
Re stricted use approved by: [employer]TH FLOOR
R disha for Anti-Infec tive: Empiric Therapy for Suspected Infection< br>Empiric Therapy Site: Blood
D uration of therapy: 72 hours vancomycin 2020- No 15mg/kg 1,500 mg Univers 1500 mg in 06-30 (rounded ity of NS 500 mL 17:00: 08:24 from 1,668 [place] IV 00 :20 mg = 15 Medical Piggyback mg/kg Branch RTU 1,500 ?111.2 mg kg), IV Piggyback, Q12H ABX, First dose on 06/30/20 at 1200, Until Discontinu ed
Reas on for Anti-Infec tive: Empiric Therapy for Suspected Infection< br>Empiric Therapy Site: Blood
D uration of therapy: 72 hours amiodarone 2020- No 150mg 150 mg, IV Univers 150 mg/100 06-30 Piggyback, it y of mL 17:00: 16:32 ONCE, 1 [place] (NEXTERONE) 00 :00 dose, [place] Med ical RTU 06/30/20 at Branch infusion 1200 150 mg sennosides- 2020- No 1{tbl} 1 tablet, Univers docusate 06-30 0403 Enteral, ity of sodium 15:00: 12:08 DAILY, [place] (SENOKOT-S) 00 :59 First dose Me dical 8.6-50 mg on [place] Branch per tablet 06/30/20 at 1 tablet 1000, Until Discontinu ed, Routine insulin 2020- No .4U/kg/ 44 Units Un jefferson glargine 06-30 d (rounded ity of (LANTUS 14:00: 21:51 from 44.48 [place] as U-100) 00 :54 Units = Medical injection 0.4 Branch 44 Units Units/kg/d ay ?111.2 kg), Subcutaneo us, DAILY, First dose (after last modificati on) on [place] 06/30/20 at 0900, Until Discontinu ed, Routine Sliding 2020- No Subcutaneo Uni vers Scale 06-30 , Q4H, ity of Insulin - 09:00: 06:02 First dose [place] Lispro 00 :32 (after Medical (HumaLOG) + last Branch Fsbg modificati Testing on) on [place] 06/30/20 at 0400, Until Discontinu ed, Routine phenylephri 2020- No .5ug/kg 0.5-6 U nivers ne 06-30 /min mcg/kg/min ity of (VAZCULEP) 03:27: 18:48 ?111.2 kg [place] 50 mg in 42 :07 (16.68-200 Medic al NaCl 0.9% .16 Branch (NS) 250 mL mL/hr), IV infusion Infusion, TITRATE, MAP Goal > or = 65 mmHg, Starting 06/29/20 at 2227
In itiate infusion at 0.5 mcg/kg/min . &nb sp;Increas e by 0.1 mcg/kg/min every 30 seconds to 5 minutes as needed to reach and maintain goal blood pressure.& nbsp;&nbsp ;Maximum dose = 6 mcg/kg/min . &nb sp;If goal not maintained at maximum allowed dose, contact prescriber .
dexMEDEtomi 2020- No .2ug/kg 0.2-1.5 Univers dine 200 06-30 03-29 /h mcg/kg/hr ity o f mcg in 0.9 03:01: 02:04 ?111.2 kg [place] % NaCl 50 26 :01 (5.56-41.7 Medi natalio mL mL/hr), IV Branch (PRECEDEX) Infusion, RTU IV TITRATE, infusion Sedation-R ASS score (0 to -1), Starting 06/29/20 at 2201
In itiate infusion at 0.2 mcg/kg/hr and titrate by 0.1 mcg/kg/hr every 30 minutes to goal sedation score. Maximum dose = 1.5 mcg/kg/hr. If goal not maintained at maximum allowed dose, contact prescriber .
phenylephri 2020- No .5ug/kg 0.5-6 U nivers ne 10 mg in 06-2928 /min mcg/kg/min i ty of NaCl 0.9% 22:05: 03:27 ?111.2 kg [place] (NS) 250 mL 29 :54 (83.4-1,00 Me dical infusion 0.8 Branch RTU mL/hr), IV Infusion, TITRATE, MAP Goal > or = 65 mmHg, Starting 06/29/20 at 1705
In itiate infusion at 0.5 mcg/kg/min . &nb sp;Increas e by 0.1 mcg/kg/min every 30 seconds to 5 minutes as needed to reach and maintain goal blood pressure.& nbsp;&nbsp ;Maximum dose = 6 mcg/kg/min . &nb sp;If goal not maintained at maximum allowed dose, contact prescriber .
atropine 2020- No .5mg 0.5 mg, IV Un jefferson injection 06-29 Push, ity of 0.5 mg 20:43: 20:45 ONCE, 1 [place] 00 :00 dose, Sat Medical 06/29/20 at Branch 1545, Routine Potassium 2020- No 40meq 40 mEq, Uni vers Bicarb-Citr 06-29 Oral, ity of ic Acid 19:45: 18:45 ONCE, 1 [place] (EFFER-K) 00 :00 dose, Sat Medic al effervescen 06/29/20 at Br anch t tablet 40 1445, mEq Routine insulin 2020- No 20U 20 Units, Univ ers glargine 06-29 Subcutaneo ity of (LANTUS 18:00: 18:46 us, ONCE, [place] U-100) 00 :00 1 dose, Medical injection Sat [place] 20 Units 06/29/20 at 1300, Routine insulin 2020- No .15U/kg 17 Units Un jefferson glargine 06-28 /d (rounded ity of (LANTUS 18:30: 16:45 from 16.68 [place] as U-100) 00 :46 Units = Medical injection 0.15 Branch 17 Units Units/kg/d ay ?111.2 kg), Subcutaneo us, DAILY, First dose on Wed06/28/20 at 1330, Until Discontinu ed, Routine metOLazone 2020- No 5mg 5 mg, Unive rs (ZAROXOLYN) 06-28 Enteral, ity of tablet 5 mg 16:45: 16:36 ONCE, 1 [place] 00 :00 dose, Fri Medical 06/28/20 at Branch 1145, Routine potassium 2020- No 40meq 40 mEq, IV Univers chloride in 06-28 Piggyback, i ty of water (KCL) 11:45: 11:13 ONCE, 1 [place] 40 mEq/100 00 :00 dose, Fri Medi natalio mL 40 mEq 06/28/20 at [facility] piggyback 0645 NaCl 0.9% 2020- No 250mL at 999 [facility] [place] [facility] ers (NS) bolus 06-28 mL/hr, 250 it y of infusion 05:00: 04:27 mL, IV [place] 250 mL 00 :00 Piggyback, Medical ONCE, 1 Branch dose, 06/28/20 at 0000, STAT vancomycin 2020- No 15mg/kg 1,500 mg Univers 1500 mg in 06-28 (rounded ity of NS 250 mL 04:15: 07:30 from 1,668 [place] IV 00 :00 mg = 15 Medical Piggyback mg/kg Branch RTU 1,500 ?111.2 mg kg), IV Piggyback, ONCE, 1 dose, [place] 06/27/20 at 2315
Re ason for Anti-Infec tive: Empiric Therapy for Suspected Infection< br>Empiric Therapy Site: Blood
D uration of therapy: 7 days NORepinephr 2020- No .05ug/k 0.05-1.5 Univers ine 4 mg in 06-28 03-27 g/min mcg/kg/min ity of D5W 250 mL 03:54: 21:06 ?111.2 kg [place] infusion 34 :10 (20.85-625 Medic al RTU .5 mL/hr), Branch IV Infusion, TITRATE, MAP Goal > or = 65 mmHg, Starting [place] 06/27/20 at 2254
In itiate titration at 0.05 mcg/kg/min . &nb sp;Increas e by 0.01 mcg/kg/min every 30 seconds to 5 minutes as needed to reach and maintain goal blood pressure.& nbsp;&nbsp ;Maximum dose = 1.5 mcg/kg/min . &nb sp;If goal not maintained at maximum allowed dose, contact prescriber .
metOLazone 2020- No 5mg 5 mg, Unive rs (ZAROXOLYN) 06-27 Enteral, ity of tablet 5 mg 17:00: 20:52 ONCE, 1 [place] 00 :00 dose, [place] Medical 06/27/20 at Branch 1200, Routine propofoL IV 2020- No 5ug/kg/ 5-50 Un jefferson infusion 06-26 03-28 min mcg/kg/min ity of 16:43: 02:02 ?109.9 kg [place] 39 :17 (3.297-32. Medical 97 mL/hr, Branch rounded to 3.3-32.97 mL/hr), IV Infusion, TITRATE, Sedation-R ASS score (0 to -1), Starting Wed06/26/20 at 1143
In itiate infusion at 5 mcg/kg/min and titrate by 5 mcg/kg/min every 30 seconds to 10 minutes to goal sedation score. Maximum dose = 50 mcg/kg/min . If goal not maintained at maximum allowed dose, contact prescriber . &nbs p;Tubing and unused portions of vials should be discarded after 12 hours.
sulfur 2020- No [id number] 5mL 5 mL, Univ ers hexafluorid 06-26 Intravenou i ty of e microsphr 16:20: 16:20 s, ONCE, 1 [place] (LUMASON) 00 :00 dose, Wed Medic al injection 5 06/26/20 at Br anch mL 1130, Routine
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 Restricted medication : LIZETTE GOLDSTEIN bumetanide 2020- No 3mg 3 mg, Slow Univers (BUMEX) 06-26 IV Push, ity of injection 3 16:00: 14:28 BID, First [place] mg 00 :04 dose on [facility] 06/26/20 at 1100, Until Discontinu ed, Routine
Indicatio n: Decompensa glo heart failure/vo lume overload and not responsive to IV furosemide Potassium 2020- No 40meq 40 mEq, Uni vers Bicarb-Citr 06-26 Oral, ity of ic Acid 11:04: 11:17 ONCE, 1 [place] (EFFER-K) 00 :00 dose, Wed Medic al effervescen 06/26/20 at Br anch t tablet 40 0615, mEq Routine bumetanide 2020- No 2mg 2 mg, Slow Univers (BUMEX) 06-26 IV Push, ity of injection 2 03:15: 10:55 TID, First [place] mg 00 :41 dose on [facility] 06/25/20 at 2215, Until Discontinu ed, Routine
Indicatio n: Decompensa glo heart failure/vo lume overload and not responsive to IV furosemide Potassium 2020- No 20meq 20 mEq, Uni vers Bicarb-Citr 06-26 Oral, ity of ic Acid 01:13: 01:40 ONCE, 1 [place] (EFFER-K) 00 :00 dose, Tue Medic al effervescen 06/25/20 at Br anch t tablet 2014, mEq Routine isosorbide 2020- No 20mg 20 mg, Univ ers dinitrate 06-25 Oral, TID, ity of (ISORDIL) 14:00: 19:00 First dose [place] tablet 20 00 :[address] [facility] Medical mg 06/25/20 at Branch 0900, Until Discontinu ed, Routine hydrALAZINE 2020- No 25mg 25 mg, Uni vers (APRESOLINE 06-25 Oral, Q8H, i ty of ) tablet 25 14:00: 19:25 First dose [place] mg 00 :[address] [facility] Medical 06/25/20 at Branch 0900, Until Discontinu ed, Routine Potassium No 40meq 40 mEq, Uni vers Bicarb-Citr 06-25 Oral, ity of ic Acid 09:18: 10:41 ONCE, 1 [place] (EFFER-K) 00 :00 dose, [facility] Medic al effervescen 06/25/20 at Br anch t tablet 40 0430, mEq Routine magnesium 2020- No 2g 2 g, IV Univ ers sulfate in 06-24 Piggyback, it y of water 2 08:15: 07:26 ONCE, 1 [place] gram/50 mL 00 :00 dose, [facility] Medi natalio (4 %) 06/24/20 at Branch infusion 2 0315, g Routine bumetanide 2020- No 2mg 2 mg, Slow Univers (BUMEX) 06-24 IV Push, ity of injection 2 08:15: 08:24 ONCE, 1 [place] mg 00 :00 dose, [facility] Medical 06/24/20 at Branch 0315, Routine
Indicatio n: Decompensa glo heart failure/vo lume overload and not responsive to IV furosemide bumetanide 2020- No 2mg/h 2 mg/hr Un jefferson (BUMEX) 10 06-24 (10 ity of mg in D5W 05:00: 13:54 mL/hr), IV [place] 50 mL 00 :33 Infusion, Medical infusion CONTINUOUS Branc h , Starting 06/24/20 at 0000 meropenem 2020- No 500mg 500 mg, IV Univers (MERREM) 06-24 Piggyback, ity of 500 mg in 02:45: 19:59 Administer [place] NaCl 0.9% 00 :24 over 60 Medical (NS) 100 mL Minutes, Bran ch MINI-BAG Q6H ABX, First dose on [place] 06/23/20 at 2145, Until Discontinu ed, ELEANOR
Re stricted use approved by: [facility] FLO[facility]
R disha for Anti-Infec tive: Empiric Therapy for Suspected Infection< br>Empiric Therapy Site: Blood
D uration of therapy: 7 days vancomycin No 1000mg 1,000 mg, Univers (VANCOCIN) 06-24 IV ity of 1,000 mg in 02:45: 13:54 Piggyback, [place] NaCl 0.9% 00 :33 Q12H ABX, Medic al (NS) 250 mL First dose Br anch VIAL-MATE (after IV last piggyback modificati on) on [place] 06/23/20 at 2145, Until Discontinu ed, 250 mL
Reas on for Anti-Infec tive: Empiric Therapy for Suspected Infection< br>Empiric Therapy Site: Blood
D uration of therapy: 7 days acetaminoph No 650mg 650 mg, U nivers en 06-24 Enteral, ity of (TYLENOL) 01:41: 05:15 Q6HPRN, [place] tablet 650 20 :40 Starting Medic al mg Sun Branch 06/23/20 at 2041, Until Tu07/02/20 at 0015, Routine, Pain (scale 1-3), Temp > 38.5 C bumetanide 2020- No 1mg/h 1 mg/hr (5 Univers (BUMEX) 10 06-23 mL/hr), IV it y of mg in D5W 15:00: 04:59 Infusion, [place] 50 mL 00 :06 CONTINUOUS Medical infusion , Starting Bran h 06/23/20 at 1000 ipratropium Yes 3mL 3 mL, Unive rs -albuteroL 06-23 Inhalation ity of (DUONEB) 05:00: , Q6H, [place] 0.5 mg-3 First dose Medic al mg(2.5 mg (after Branch base)/3 mL last nebulizer modificati solution 3 on) on Sun mL 06/23/20 at 0000, Until Discontinu ed, Routine prednisoLON 2020- No 45mg 45 mg, Uni vers E 15 mg/5 06-22 Enteral, ity o f mL solution 14:00: 13:32 DAILY, 3 [place] 45 mg 00 :00 doses, Medical First dose Branch on 06/22/20 at 0900, Last dose on 06/24/20 at 0900, Routine magnesium 2020- No 4g 4 g, IV Univ ers sulfate in 06-22 Piggyback, it y of water 4 11:15: 11:42 ONCE, 1 [place] gram/50 mL 00 :00 dose, Sat Medi natalio (8 %) IV 06/22/20 at [facility] h Piggyback 4 0615, g Routine Potassium 2020- No 20meq 20 mEq, Uni vers Bicarb-Citr 06-22 Enteral, ity of ic Acid 11:00: 11:03 ONCE, 1 [place] (EFFER-K) 00 :00 dose, Sat Medic al effervescen 06/22/20 at Br anch t tablet 20 0600, mEq Routine Potassium 2020- No 40meq 40 mEq, Uni vers Bicarb-Citr 06-22 Enteral, ity of ic Acid 00:00: 01:02 Q1H, 2 [place] (EFFER-K) 00 :00 doses, Medical effervescen First dose Br anch t tablet 40 on Fri mEq 06/21/20 at 1900, Last dose on Wed06/21/20 at 2000, Routine sodium Yes 4mL 4 mL, Univers chloride 7% 06-21 Inhalation it y of (HYPER-DAVID) 19:00: , TID, [place] nebulizer 00 First dose Medi natalio solution 4 (after Branch mL last modificati on) on Wed06/21/20 at 1400, Until Discontinu ed, Routine chlorothiaz No 250mg 250 mg, IV Univers sandip 06-21 Piggyback, ity of (DIURIL) 16:00: 14:37 DAILY, [place] 250 mg in 00 :16 First dose Medi natalio NaCl 0.9% (after Branch (NS) 50 mL last reorder) on Wed06/21/20 at 1100, Until Discontinu ed, 50 mL
Facu lty member approving Restricted medication : LIZETTE GOLDSTEIN MONK sodium 2020- No 4mL 4 mL, Univers chloride 7% 06-21 Inhalation i ty of (HYPER-DAVID) 13:00: 17:13 , BID, [place] as nebulizer 00 :41 First dose Medi natalio solution 4 (after Branch mL last modificati on) on Wed06/21/20 at 0800, Until Discontinu ed, Routine magnesium 2020- No 4000mg 4,000 mg, Univers sulfate in 06-21 IV ity of water 4 08:00: 07:53 Infusion, [place] gram/50 mL 00 :00 ONCE, 1 Medica l (8 %) 4,000 dose, Wed Bra nch mg 06/21/20 at piggyback 0300 meropenem 2020- No 500mg 500 mg, IV Univers (MERREM) 06-21 Piggyback, ity of 500 mg in 04:00: 14:51 Administer [place] NaCl 0.9% 00 :00 over 60 Medical (NS) 100 mL Minutes, Bran ch MINI-BAG Q8H ABX, First dose (after last modificati on) on [place] 06/20/20 at 2300, Until Discontinu ed, ELEANOR
Re stricted use approved by: YUE 8TH FLOOR<br&g t;Reason for Anti-Infec tive: Documented Infection< br>Documen glo Infection Site: Blood<br&g t;Duration of Therapy: 14 days acetylcyste No 4mL 800 mg (4 Univers ine 06-21 03-19 mL), ity of (MUCOMYST) 03:00: 11:59 Inhalation [place] 200 mg/mL 00 :39 , Q6H, Medical (20 %) First dose Branch solution on [place] 800 mg 06/20/20 at 2200, Until Discontinu ed, Routine atorvastati 2020- No 80mg 80 mg, Uni vers n (LIPITOR) 06-21 04-15 Enteral, ity of tablet 80 02:00: 16:04 QHS, First [place] mg 00 :27 dose Medical (after Branch last modificati on) on [place] 06/20/20 at 2100, Until Discontinu ed, Routine meropenem 2020- No 1000mg 1,000 mg, Univers (MERREM) 06-2018 IV ity of 1,000 mg in 18:30: 20:11 Piggyback, [place] NaCl 0.9% 00 :00 Administer Medi natalio (NS) 100 mL over 60 Branc h IV Minutes, piggyback ONCE, 1 dose, [facility] 06/20/20 at 1330, ELEANOR
Re stricted use approved by: YUE 8TH FLOOR
R disha for Anti-Infec tive: Documented Infection& lt;br>Docu mented Infection Site: Blood
D uration of Therapy: 14 days vancomycin 2020- No 15mg/kg 1,500 mg Univers 1500 mg in 06-20 (rounded ity of NS 500 mL 18:30: 20:19 from [place] IV 00 :26 1,882.5 mg Medical Piggyback = 15 mg/kg Bran ch RTU 1,500 ?125.5 mg kg), IV Piggyback, ONCE, 1 dose, [facility] 06/20/20 at 1330
Re ason for Anti-Infec tive: Documented Infection< br>Documen glo Infection Site: Blood
D uration of Therapy: 14 days tamsulosin Yes .4mg 0.4 mg, Univ ers (FLOMAX) 06-20 Oral, ity of capsule 0.4 14:00: DAILY, [place] mg 00 First dose Medical on [place] Branch 06/20/20 at 0900, Until Discontinu ed, Routine pantoprazol No 40mg 40 mg, Uni vers e 06-2016 Enteral, ity of (PROTONIX) 14:00: 16:23 DAILY, [place] 2 mg/mL 00 :33 First dose Medica l oral on [place] Branch suspension 06/20/20 at 40 mg 0900, Until Discontinu ed, Routine aspirin No 81mg 81 mg, Univers chewable 06-20 Enteral, ity of tablet 81 14:00: 16:12 DAILY, [place] mg 00 :11 First dose Medical (after Branch last modificati on) on [place] 06/20/20 at 0900, Until Discontinu ed allopurinoL No 100mg 100 mg, U nivers (ZYLOPRIM) 06-20 Enteral, ity of tablet 100 14:00: 14:37 DAILY, [place] mg 00 :16 First dose Medical (after Branch last modificati on) on [place] 06/20/20 at 0900, Until Discontinu ed, Routine sodium No 4mL 4 mL, Univers chloride 7% 06-20 Inhalation i ty of (HYPER-DAVID) 14:00: 11:59 , DAILY, [place] nebulizer 00 :39 First dose Medi natalio solution 4 on [place] Branch mL 06/20/20 at 0900, Until Discontinu ed, Routine chlorothiaz No 250mg 250 mg, IV Univers sandip 06-20 Piggyback, ity of (DIURIL) 13:15: 13:35 ONCE, 1 [place] 250 mg in 00 :00 dose, [place] Medic al NaCl 0.9% 06/20/20 at Bran ch (NS) 50 mL 0815, 50 mL
Facu lty member approving Restricted medication : LIZETTE GOLDSTEIN furosemide No 80mg 80 mg, Univ ers (LASIX) 06-20 Slow IV ity of injection 13:00: 19:29 Push, [place] 80 mg 00 :16 Q12H, Medical First dose Branch (after last modificati on) on [place] 06/20/20 at 0800, Until Discontinu ed, Routine bumetanide 2020- No 2mg/h 2 mg/hr Un jefferson (BUMEX) 10 06-20 (10 ity of mg in D5W 12:15: 14:51 mL/hr), IV [place] 50 mL 00 :00 Infusion, Medical infusion CONTINUOUS Branc h , Starting [facility] 06/20/20 at 0715 bumetanide 2020- No 3mg 3 mg, Slow Univers (BUMEX) 06-20 IV Push, ity of injection 3 09:18: 09:58 ONCE, 1 [place] mg 00 :00 dose, [place] Medical 06/20/20 at Branch 0430, ELEANOR
In dication: Decompensa glo heart failure/vo lume overload and not responsive to IV furosemide furosemide 2020- No 40mg 40 mg, Univ ers (LASIX) 06-20 Slow IV ity of injection 06:05: 08:46 Push, [place] 40 mg 20 :30 Q12H, Medical First dose Branch (after last modificati on) on [place] 06/20/20 at 0800, Until Discontinu ed, Routine Sliding No Subcutaneo Uni vers Scale 06-2028 us, Q4H, ity of Insulin - 05:00: 06:00 First dose [place] Lispro 00 :27 (after Medical (HumaLOG) + last Branch Fsbg modificati Testing on) on [facility] 06/20/20 at 0000, Until Discontinu ed, Routine glucagon Yes 1mg 1 mg, Univers (GLUCAGEN 06-20 Intramuscu ity of DIAGNOSTIC 04:42: lar, PRN, [place] KIT) 48 Starting Medical injection 1 Wed Branch mg 06/19/20 at 2342, Until Discontinu ed, ELEANOR, Blood Glucose < or = 70 mg/dL and patient is unable to swallow or has mental changes. dextrose 50 2020- No 25mL 25 mL, Uni vers % in water 06-2029 Slow IV ity o f (D50W) 04:42: 21:51 Push, PRN, [place] injection 48 :14 Starting Medica l 25 mL Wed Branch 06/19/20 at 2342, Until 07/01/20 at 1651, ELEANOR, Blood Glucose < or = 70 mg/dL and patient is unable to swallow or has mental status changes. furosemide 2020- No 80mg 80 mg, IV U nivers (LASIX) 06-20 03-18 Push, ity of injection 03:15: 02:59 ONCE, 1 [place] 80 mg 00 :00 dose, Wed Medical 06/19/20 at Branch 2215, Routine heparin 2020- No 1000U/h 1,000 Unive rs 25,000 06-19 04-13 Units/hr ity of Units/250 23:30: 16:45 (10 [place] mL 57 :37 mL/hr), IV Medical (Premixed Infusion, Branc h Bag) in TITRATE, 0.45 % NS Parameters in Admin. Instr., Starting 06/19/20 at 1830
CA UTION - If LMWH given in ER, AVOID bolus and start next dose/drip 12 hrs after ER dosage.&nb sp; M ust program rate using programmab le infusion pump.&nbsp ; Maryse ck with the ordering provider first prior to any administra tion should the patient be on existing/a dditional anticoagul ant therapy.&n bsp; Range, Dosing and Testing&nb sp; - aPTT < 40: & nbsp;Bolus 3000 units, increase rate 100 units/hr.& nbsp;- aPTT 40-49:&amp ;nbsp;&nbs p;Increase rate 50 units/hr. - aPTT 50-70:&nbs p; NO CHANGE.&am p;nbsp;- aPTT 71-85:&nbs p; De crease rate 50 units/hr.& nbsp;- aPTT 86-100:&nb sp;&nb sp;Hold 30 minutes, decrease rate 100 units/hr.& nbsp;- aPTT 101-150:&n bsp; Hold 60 minutes, decrease rate 150 units/hr.& nbsp;- aPTT > 150: Hold 60 minutes, decrease rate 300 units/hr.& nbsp;&nbsp ;Check aPTT 6 hours after initiation , then Q6H after every change, aPTT Q12H once therapeuti c levels are reached.&n bsp; DO NOT ADJUST INITIAL BOLUS OR INITIAL INFUSION RATE.
NORepinephr 2020- No .05ug/k 0.05-1.5 Univers ine 4 mg in 06-1918 g/min mcg/kg/min ity of 0.9% NaCl 23:17: 05:49 ?125.5 kg [place] 250 mL 46 :22 (23.5313-7 Medical infusion 05.9375 Branch RTU mL/hr, rounded to 23.53-705. 94 mL/hr), IV Infusion, TITRATE, MAP Goal > or = 65 mmHg, Starting 06/19/20 at 1817
In itiate titration at 0.05 mcg/kg/min . &nb sp;Increas e by 0.05 mcg/kg/min every 30 seconds to 5 minutes as needed to reach and maintain goal blood pressure.& nbsp;&nbsp ;Maximum dose = 1.5 mcg/kg/min . &nb sp;If goal not maintained at maximum allowed dose, contact prescriber .
ipratropium 2020- No 3mL 3 mL, Univ ers -albuteroL 06-19 Inhalation it y of (DUONEB) 23:00: 03:18 , Q6H, [place] 0.5 mg-3 00 :09 First dose Medic al mg(2.5 mg on Wed Branch base)/3 mL 06/19/20 at nebulizer 1800, solution 3 Until mL Discontinu ed, Routine HEPARIN 2020- No 4000U 4,000 Univers SODIUM 06-19 Units, IV ity of (PORCINE) 22:45: 00:53 Push, [place] 1,000 00 :00 ONCE, 1 Medical UNIT/ML dose, Wed Branch BOLUS ACS 06/19/20 at ORDER SET 1745, Routine midazolam 2020- No 5mg 5 mg, IV Uni vers (VERSED) 06-19 Push, ity of injection 5 20:00: 18:55 ONCE, 1 [place] mg 00 :00 dose, Wed Medical 06/19/20 at Branch 1500, STAT midazolam 2020- No 1mg/h 1-10 mg/hr Univers (VERSED) 06-19 (1-10 ity of STD 50mg in 19:37: 11:49 mL/hr), IV [place] NaCl 0.9% 16 :27 Infusion, Medic al (NS) 50 mL TITRATE, Branc h infusion Sedation-R RTU ASS score (0 to -1), Starting Wed06/19/20 at 1437
In itiate infusion at 1 mg/hr and titrate by 1 mg/hr every 3 minutes to 10 minutes to goal sedation score. Maximum dose = 10 mg/hr.&nbs p; If goal not maintained at maximum allowed dose, contact prescriber .
fentaNYL PF 2020- No 25ug/h 25-200 U nivers (SUBLIMAZE) 06-19 mcg/hr ity o f STD 2,500 19:36: 02:01 (2.5-20 [place] mcg in NaCl 55 :58 mL/hr), IV Me dical 0.9% (NS) Infusion, Branc h 250 mL TITRATE, infusion CPOT/Pain RTU Scale Goals Determined by Provider, Starting Wed06/19/20 at 1436
In itiate infusion at 25 mcg/hr. Titrate by 25 mcg/hr every 1 minute to 15 minutes to identified goal pain and/or sedation scores. Maximum dose = 200 mcg/hr. If goal not maintained at maximum allowed dose, contact prescriber .
NaCl 0.9% 2020- No 1000mL at 999 Uni vers (NS) bolus 06-19 mL/hr, ity of infusion 19:15: 20:13 1,000 mL, [place] as 1,000 mL 00 :00 IV Medical Infusion, Branch ONCE, 1 dose, Wed06/19/20 at 1415, STAT heparin 2020- No 5000U 5,000 Univers (porcine) 06-19 Units, ity of injection 19:00: 22:31 Subcutaneo [place] 5,000 Units 00 :13 us, Q8H, Medi natalio First dose Branch on Wed06/19/20 at 1400, Until Discontinu ed, Routine rocuronium No 50mg 50 mg, IV U nivers (ZEMURON) 06-19 Push, ity of injection 19:00: 17:54 ONCE, 1 [place] 50 mg 00 :00 dose, Wed Medical 06/19/20 at Branch 1400, Routine
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 Restricted medication : STEPHANIA MURDOCK etomidate 2020- No 20mg 20 mg, Unive rs (AMIDATE) 06-19 Slow IV ity of injection 18:30: 17:32 Push, [place] 20 mg 00 :00 ONCE, 1 Medical dose, Wed Branch 06/19/20 at 1330, STAT succinylcho 2020- No 100mg 100 mg, IV Univers line 06-19 Push, ity of (QUELICIN) 18:30: 17:33 ONCE, 1 [place] injection 00 :00 dose, Wed Medic al 100 mg 06/19/20 at Branch 1330, STAT furosemide 2020- No 40mg 40 mg, Univ ers (LASIX) 06-19 Slow IV ity of injection 18:15: 22:33 Push, [place] 40 mg 00 :29 Q12H, Medical First dose Branch on Wed06/19/20 at 1315, Until Discontinu ed, Routine methylpredn No 125mg 125 mg, IV Univers isolone sod 06-19 Piggyback, i ty of succ 18:00: 17:21 ONCE, 1 [place] (SOLU-MEDRO 00 :00 dose, Wed Med ical L) 06/19/20 at Branch injection 1300, STAT 125 mg FENTanyl PF No 50ug 50 mcg, Un jefferson (SUBLIMAZE 06-19 Slow IV ity o f (PF)) 17:52: 11:49 Push, PRN [place] injection 52 :27 - SEE Medical 50 mcg INSTRUCTIO Branch NS, 7 doses, Starting Wed06/19/20 at 1252, Until Wed07/02/20 at 0649, ELEANOR, Initiation of Analgesia aspirin No 300mg 300 mg, Unive rs suppository 06-19 Rectal, ity of 300 mg 16:30: 16:06 ONCE, 1 [place] 00 :00 dose, Wed Medical 06/19/20 at Branch 1130, ELEANOR ipratropium 2020- No .5mg 0.5 mg, Un jefferson (ATROVENT) 06-19 Inhalation it y of 0.02 % 15:00: 15:07 , ONCE, 1 [place] nebulizer 00 :00 dose, Wed Medic al solution 06/19/20 at [facility] h 0.5 mg 1000, ELEANOR albuterol No 2.5mg 2.5 mg, Uni vers (PROVENTIL) 06-19 Inhalation i ty of 2.5 mg /3 15:00: 15:07 , ONCE, 1 [place] mL (0.083 00 :00 dose, [facility] Medic al %) 06/19/20 at [place] nebulizer 1000, STAT solution 2.5 mg cyclobenzap Yes 10mg Take 1 Univ ers rine 10 mg 8-23 tablet by ity of tablet 00:00: mouth 3 [place] 00 (three) Medical times Branch daily. naproxen Yes 550mg Take 1 Univer s sodium 550 8-23 tablet by ity of mg tablet 00:00: mouth 2 [place] 00 (two) Medical times Branch daily with meals. acetaminoph Yes 1{tbl} Take 1 Un jefferson en-codeine 8-23 tablet by ity of (TYLENOL-CO 00:00: mouth [place] DEINE #3) 00 every 4 Medical 300-30 mg (four) Branch tablet hours as needed for Pain (scale 7-10) (ALTERNATE WITH NAPROXEN FOR PAIN). cyclobenzap 2020- No 10mg Take 1 Uni vers rine 10 mg 8-23 04-19 tablet by ity of tablet 00:00: 00:00 mouth 3 [place] 00 :00 (three) Medical times Branch daily. naproxen 2020- No 550mg Take 1 Unive rs sodium 550 8-23 04-19 tablet by ity of mg tablet 00:00: 00:00 mouth 2 [place] 00 :00 (two) Medical times Branch daily with meals. acetaminoph 2020- No 1{tbl} Take 1 U nivers en-codeine 11-25 tablet by ity of (TYLENOL-CO 00:00: 00:00 mouth [place] DEINE #3) 00 :00 every 4 Medical 300-30 mg (four) Branch tablet hours as needed for Pain (scale 7-10) (ALTERNATE WITH NAPROXEN FOR PAIN). Immunizations Ordered Filled Immunization Date Status Comments [facility] e Immunization Name Name Remdesivir 2021-11-06 Completed University of 00:00:00 [facility] Remdesivir 2021-11-06 Completed University of 00:00:00 [facility] Remdesivir 2021-11-05 Completed University of 00:00:00 [facility] Remdesivir 2021-11-05 Com[facility] 00:00:00 [facility] Remdesivir 2021-11-04 Completed [facility] Com[facility] University of 00:00:00 [facility] Remdesivir 2021-11-03 Completed University of 00:00:00 [facility] Remdesivir 2021-11-02 Completed [facility] University of 00:00:00 [facility] SARS-COV-2 COVID-19 2020-11-12 Completed Unive rsity of PFIZER VACCINE 00:00:00 [facility] SARS-COV-2 COVID-19 2020-11-12 Completed Unive rsity of PFIZER VACCINE 00:00:00 [facility] SARS-COV-2 COVID-19 2020-11-12 Completed Unive rsity of PFIZER VACCINE 00:00:00 [facility] SARS-COV-2 COVID-19 2020-11-12 Completed Unive rsity of PFIZER VACCINE 00:00:00 [facility] SARS-COV-2 COVID-19 2020-11-12 Completed Unive rsity of PFIZER VACCINE 00:00:00 [facility] SARS-COV-2 COVID-19 2020-11-12 Completed Unive rsity of PFIZER VACCINE 00:00:00 [facility] SARS-COV-2 COVID-19 2020-11-12 Completed Unive rsity of PFIZER VACCINE 00:00:00 [facility] SARS-COV-2 COVID-19 2020-08-22 Completed Unive rsity of PFIZER VACCINE 00:00:00 [facility] SARS-COV-2 COVID-19 2020-08-22 Completed Unive rsity of PFIZER VACCINE 00:00:00 [facility] SARS-COV-2 COVID-19 2020-08-22 Completed Unive rsity of PFIZER VACCINE 00:00:00 [facility] SARS-COV-2 COVID-19 2020-08-22 Completed Unive rsity of PFIZER VACCINE 00:00:00 [facility] SARS-COV-2 COVID-19 2020-08-22 Completed Unive rsity of PFIZER VACCINE 00:00:00 [facility] SARS-COV-2 COVID-19 2020-08-22 Completed Unive rsity of PFIZER VACCINE 00:00:00 [facility] SARS-COV-2 COVID-19 2020-08-22 Completed Unive rsity of PFIZER VACCINE 00:00:00 [facility] Influenza Virus 2020-01-30 Completed Universit y of Vaccine Quad IM 3+ 00:00:00 [facility] Influenza Virus 2020-01-30 Completed Universit y of Vaccine Quad IM 3+ 00:00:00 [facility] Influenza Virus 2020-01-30 Completed Universit y of Vaccine Quad IM 3+ 00:00:00 [facility] Influenza Virus 2020-01-30 Completed Universit y of Vaccine Quad IM 3+ 00:00:00 [facility] Influenza Virus 2020-01-30 Completed Universit y of Vaccine Quad IM 3+ 00:00:00 [facility] Influenza Virus 2020-01-30 Completed Universit y of Vaccine Quad IM 3+ 00:00:00 [facility] Influenza Virus 2020-01-30 Completed Universit y of Vaccine Quad IM 3+ 00:00:00 [facility] Influenza Virus 2019-01-26 Completed Universit y of Vaccine Quad IM 3+ 00:00:00 [facility] Pneumococcal 13 2019-01-26 Completed Universit y of Conjugate, PCV13 00:00:00 [place] Me dical (Prevnar 13) Branch Influenza Virus 2019-01-26 Completed Universit y of Vaccine Quad IM 3+ 00:00:00 [facility] Pneumococcal 13 2019-01-26 Completed Universit y of Conjugate, PCV13 00:00:00 [facility] [place] dical (Prevnar 13) [place] Influenza Virus 2019-01-26 Completed Universit y of Vaccine Quad IM 3+ 00:00:00 [facility] Pneumococcal 13 2019-01-26 Completed Universit y of Conjugate, PCV13 00:00:00 [facility] [place] dical (Prevnar 13) [place] Influenza Virus 2019-01-26 Completed Universit y of Vaccine Quad IM 3+ 00:00:00 [facility] Pneumococcal 13 2019-01-26 Completed Universit y of Conjugate, PCV13 00:00:00 [facility] [place] dical (Prevnar 13) [place] Influenza Virus 2019-01-26 Completed Universit y of Vaccine Quad IM 3+ 00:00:00 [facility] Pneumococcal 13 2019-01-26 Completed Universit y of Conjugate, PCV13 00:00:00 [facility] [place] dical (Prevnar 13) [place] Influenza Virus 2019-01-26 Completed Universit y of Vaccine Quad IM 3+ 00:00:00 [facility] Pneumococcal 13 2019-01-26 Completed Universit y of Conjugate, PCV13 00:00:00 [facility] [place] dical (Prevnar 13) [place] Influenza Virus 2019-01-26 Completed Universit y of Vaccine Quad IM 3+ 00:00:00 [facility] Pneumococcal 13 2019-01-26 Completed Universit y of Conjugate, PCV13 00:00:00 [facility] [place] dical (Prevnar 13) [place] Influenza Virus 2018-01-19 Completed Universit y of Vaccine Quad IM 3+ 00:00:00 [facility] Influenza Virus 2018-01-19 Completed Universit y of Vaccine Quad IM 3+ 00:00:00 [facility] Influenza Virus 2018-01-19 Completed Universit y of Vaccine Quad IM 3+ 00:00:00 [facility] Influenza Virus 2018-01-19 Completed Universit y of Vaccine Quad IM 3+ 00:00:00 [facility] Influenza Virus 2018-01-19 Completed Universit y of Vaccine Quad IM 3+ 00:00:00 [facility] Influenza Virus 2018-01-19 Completed Universit y of Vaccine Quad IM 3+ 00:00:00 [facility] Influenza Virus 2018-01-19 Completed Universit y of Vaccine Quad IM 3+ 00:00:00 [facility] Influenza Virus 2017-01-21 Completed Universit y of Vaccine (3+ yrs) 00:00:00 [facility] Influenza Virus 2017-01-21 Completed Universit y of Vaccine (3+ yrs) 00:00:00 [facility] Influenza Virus 2017-01-21 Completed Universit y of Vaccine (3+ yrs) 00:00:00 [facility] Influenza Virus 2017-01-21 Completed Universit y of Vaccine (3+ yrs) 00:00:00 [facility] Influenza Virus 2017-01-21 Completed Universit y of Vaccine (3+ yrs) 00:00:00 [facility] Influenza Virus 2017-01-21 Completed Universit y of Vaccine (3+ yrs) 00:00:00 [facility] Influenza Virus 2017-01-21 Completed Universit y of Vaccine (3+ yrs) 00:00:00 [facility] TDAP 2015-12-12 Completed University of 00:00:00 [facility] TDAP 2015-12-12 Completed University of 00:00:00 [facility] TDAP 2015-12-12 Completed University of 00:00:00 [facility] TDAP 2015-12-12 Completed University of 00:00:00 [facility] TDAP 2015-12-12 Completed University of 00:00:00 [facility] TDAP 2015-12-12 Completed University of 00:00:00 [facility] TDAP 2015-12-12 Completed University of 00:00:00 [facility] Influenza Virus 2015-04-26 Completed Universit y of Vaccine 00:00:00 [facility] Influenza Virus 2015-04-26 Completed Universit y of Vaccine 00:00:00 [facility] Influenza Virus 2015-04-26 Completed Universit y of Vaccine 00:00:00 [facility] Influenza Virus 2015-04-26 Completed Universit y of Vaccine 00:00:00 [facility] Influenza Virus 2015-04-26 Completed Universit y of Vaccine 00:00:00 [facility] Influenza Virus 2015-04-26 Completed Universit y of Vaccine 00:00:00 [facility] Influenza Virus 2015-04-26 Completed Universit y of Vaccine 00:00:00 [place] [facility] Pneumococcal 13 2012-03-07 Completed Universit y of Conjugate, PCV13 00:00:00 [place] Me dical (Prevnar 13) Branch Pneumococcal 13 2012-03-07 Completed Universit y of Conjugate, PCV13 00:00:00 [place] Me dical (Prevnar 13) Branch Pneumococcal 13 2012-03-07 Completed Universit y of Conjugate, PCV13 00:00:00 [place] Me dical (Prevnar 13) Branch Pneumococcal 13 2012-03-07 Completed Universit y of Conjugate, PCV13 00:00:00 [place] Me dical (Prevnar 13) Branch Pneumococcal 13 2012-03-07 Completed Universit y of Conjugate, PCV13 00:00:00 [place] Me dical (Prevnar 13) Branch Pneumococcal 13 2012-03-07 Completed Universit y of Conjugate, PCV13 00:00:00 [place] Me dical (Prevnar 13) Branch Pneumococcal 13 2012-03-07 Completed Universit y of Conjugate, PCV13 00:00:00 [place] Me dical (Prevnar 13) Branch Vital Signs Vital Name Observation Time Observation Value Comments Source Systolic blood 2021-11-22 15:54:00 153 mm[Hg] Univer sity of pressure [facility] Diastolic blood 2021-11-22 15:54:00 71 mm[Hg] Unive rsity of [facility] Heart rate 2021-11-22 15:54:00 92 /min [facility] Body temperature 2021-11-22 15:54:[address] [facility] Respiratory rate 2021-11-22 15:54:00 18 /min [facility] Oxygen saturation in 2021-11-22 15:54:00 90 /min [facility] Arterial blood by [facility] Pulse oximetry Branch Body weight 2021-11-20 09:25:00 114.987 kg [facility] BMI 2021-11-20 09:25:00 34.38 kg/m2 [facility] Body height 2021-11-01 13:09:00 182.9 cm [facility] Systolic blood 2020-11-12 18:22:00 102 mm[Hg] Univer sity of pressure [facility] Diastolic blood 2020-11-12 18:22:00 63 mm[Hg] Unive rsity of pressure [facility] Heart rate 2020-11-12 18:22:00 90 /min [facility] Body temperature 2020-11-12 18:22:00 36.33 Radha [facility] Respiratory rate 2020-11-12 18:22:00 18 /min [facility] Body weight 2020-11-12 18:22:00 91.808 kg [facility] BMI 2020-11-12 18:22:00 32.68 kg/m2 [facility] Oxygen saturation in 2020-11-12 18:22:00 97 /min [facility] Arterial blood by [facility] Pulse oximetry Branch Systolic blood 2020-07-22 20:59:00 113 mm[Hg] Univer sity of pressure [facility] Diastolic blood 2020-07-22 20:59:00 65 mm[Hg] Unive rsity of pressure [facility] Heart rate 2020-07-22 20:59:00 83 /min [facility] Body temperature 2020-07-22 20:59:00 36.28 Radha [facility] Respiratory rate 2020-07-22 20:59:00 20 /min [facility] Oxygen saturation in 2020-07-22 20:59:00 91 /min [facility] Arterial blood by [facility] Pulse oximetry Branch Body weight 2020-07-18 01:59:00 99.973 kg [facility] BMI 2020-07-18 01:59:00 35.59 kg/m2 [facility] Body height 2020-07-15 13:00:00 167.6 cm [facility] Systolic blood 2020-07-22 20:59:00 113 mm[Hg] Univer sity of pressure [facility] Diastolic blood 2020-07-22 20:59:00 65 mm[Hg] Unive rsity of pressure [facility] Heart rate 2020-07-22 20:59:00 83 /min [facility] Body temperature 2020-07-22 20:59:00 36.28 Radha [facility] Respiratory rate 2020-07-22 20:59:00 20 /min [facility] Oxygen saturation in 2020-07-22 20:59:00 91 /min [facility] Arterial blood by [facility] Pulse oximetry Branch Body weight 2020-07-18 01:59:00 99.973 kg [facility] BMI 2020-07-18 01:59:00 35.59 kg/m2 [facility] Body height 2020-07-15 13:00:00 167.6 cm [facility] Heart Rate 2021-12-02 00:49:08 [facility] Systolic (mm Hg) 2021-12-02 00:48:33 Robert [place] Diastolic (mm Hg) 2021-12-02 00:48:33 Mem orial [place] Heart Rate 2021-12-02 00:48:33 [facility] [place] Temperature Oral (F) 2021-12-02 00:47:04 98 F [facility] [place] Temperature Oral (F) 2021-12-01 21:23:00 100.3 F [facility] Heart Rate 2021-12-01 21:23:00 [facility] Systolic (mm Hg) 2021-12-01 21:23:00 Robert rial [facility] Diastolic (mm Hg) 2021-12-01 21:23:00 Mem orial [place] Temperature Oral (F) 2021-12-01 17:20:00 98.8 F [facility] [place] Systolic (mm Hg) 2021-12-01 17:20:00 Robert rial [facility] Diastolic (mm Hg) 2021-12-01 17:20:00 Mem orial [place] Heart Rate 2021-12-01 05:44:16 [facility] [place] Systolic (mm Hg) 2021-12-01 05:43:55 Robert rial [facility] Diastolic (mm Hg) 2021-12-01 05:43:55 Mem [facility]rial [facility] Heart Rate 2021-12-01 05:43:55 [facility] Temperature Oral (F) 2021-12-01 05:43:53 97.8 F [facility] [place] Systolic (mm Hg) 2021-12-01 02:32:00 Robert rial [place] Diastolic (mm Hg) 2021-12-01 02:32:00 Mem orial [facility] Heart Rate 2021-12-01 02:32:00 [facility] Systolic (mm Hg) 2021-12-01 00:58:05 Robert [facility] Diastolic (mm Hg) 2021-12-01 00:58:05 Mem orial [place] Temperature Oral (F) 2021-12-01 00:56:27 98.2 F [facility] Temperature Oral (F) 2021-11-30 20:38:21 98.2 F [facility] Respitory Rate 2021-11-29 22:17:00 Memori al [place] Respitory Rate 2021-11-29 13:30:00 [facility] Respitory Rate 2021-11-29 12:50:40 Memori [facility] [place] Height 2021-11-26 21:49:00 182.88 cm [facility] Weight 2021-11-26 21:49:00 [facility] BMI Calculated 2021-11-26 21:49:00 Memori al [place] Height 2021-11-26 19:39:00 182.88 cm [facility] Weight 2021-11-26 19:39:00 [facility] [place] Height 2021-11-26 16:12:00 182.88 cm [facility] BMI Calculated 2021-11-26 16:12:00 Memori al [place] Weight 2021-11-26 16:12:00 [facility] Heart Rate 2021-05-10 01:47:19 [facility] Systolic (mm Hg) 2021-05-10 01:47:03 Robert rial [place] Diastolic (mm Hg) 2021-05-10 01:47:03 Mem orial [facility] Heart Rate 2021-05-10 01:47:03 [facility] [place] Temperature Oral (F) 2021-05-10 01:46:09 99.7 F [facility] Heart Rate 2021-05-09 22:25:32 [facility] Systolic (mm Hg) 2021-05-09 22:23:32 Robert rial [facility] Diastolic (mm Hg) 2021-05-09 22:23:32 Mem orial [place] Temperature Oral (F) 2021-05-09 22:21:52 98.1 F [facility] Systolic (mm Hg) 2021-05-09 19:02:06 Robert rial [place] Diastolic (mm Hg) 2021-05-09 19:02:06 Mem [facility] Temperature Oral (F) 2021-05-09 19:01:36 98.7 F [facility] Respitory Rate 2021-05-07 21:45:15 Memori al [place] Respitory Rate 2021-05-07 18:44:29 Memori al [place] Respitory Rate 2021-05-07 14:04:42 Memori [facility] Heart Rate 2021-04-28 06:02:06 [facility] [place] Systolic (mm Hg) 2021-04-28 06:02:00 Robert rial [place] Diastolic (mm Hg) 2021-04-28 06:02:00 Mem orial [place] Heart Rate 2021-04-28 06:02:00 [facility] [place] Temperature Oral (F) 2021-04-28 06:01:03 98.5 F [facility] [place] Respitory Rate 2021-04-28 03:58:00 Memori al [place] Heart Rate 2021-04-28 02:16:36 [facility] [place] Systolic (mm Hg) 2021-04-28 02:16:13 Robert rial [place] Diastolic (mm Hg) 2021-04-28 02:16:13 Mem orial [facility] Temperature Oral (F) 2021-04-28 02:15:31 98.2 F [facility] [place] Respitory Rate 2021-04-27 22:01:21 [facility] Temperature Oral (F) 2021-04-27 22:01:14 99.4 F [facility] [place] Systolic (mm Hg) 2021-04-27 22:00:40 Robert rial [place] Diastolic (mm Hg) 2021-04-27 22:00:40 Mem orial [place] Respitory Rate 2021-04-27 15:17:00 [facility] Height 2021-04-24 20:09:00 170.18 cm [facility] Weight 2021-04-24 20:09:00 [facility] BMI Calculated 2021-04-24 20:09:00 Memori al [place] Height 2021-04-24 18:34:00 182.88 cm [facility] [place] Weight 2021-04-24 18:34:00 [facility] [place] Height 2021-04-24 14:38:00 182.88 cm [facility] BMI Calculated 2021-04-24 14:38:00 Xavi Baron Weight 2021-04-24 14:38:00 Chin [place] Heart rate 2020-07-10 16:59:00 118 /min [facility] Respiratory rate 2020-07-10 16:59:00 22 /min [facility] Oxygen saturation in 2020-07-10 16:59:00 95 /min [facility] Arterial blood by [facility] Pulse oximetry Branch Body temperature 2020-07-10 16:50:00 38.28 Radha [facility] Systolic blood 2020-07-10 15:00:00 135 mm[Hg] Univer sity of [facility] Diastolic blood 2020-07-10 15:00:00 54 mm[Hg] [facility] Body weight 2020-07-09 19:00:00 103.465 kg [facility] BMI 2020-07-09 19:00:00 36.83 kg/m2 [facility] Body height 2020-06-26 17:00:00 167.6 cm [facility] Procedures Procedure Date / Time Performing Clinician Source Performed POCT GLUCOSE (AUTOMATED) 2021-11-22 16:06:00 [facility]IC PAN[facility] (NA, 2021-11-22 09:58:00 Blu Hahn [facility] K, CL, CO2, GLUCOSE, BUN, Medica l Branch CREATININE, [place]) CBC WITHOUT DIFF 2021-11-22 09:58:[address] [facility] POCT GLUCOSE (AUTOMATED) 2021-11-21 21:55:00 [facility] 2021-11-21 16:44:00 [facility] ([facility]OMATED) 2021-11-21 13:54:00 [facility] ([facility]OMATED) 2021-11-20 22:04:00 [facility] ([facility]OMATED) 2021-11-20 16:59:00 Ron [facility] POCT GLUCOSE (AUTOMATED) 2021-11-20 12:46:00 Ron [facility] POCT GLUCOSE (AUTOMATED) 2021-11-19 22:10:00 Ron [facility] XR CHEST 1 VW 2021-11-19 19:34:21 Hahn, [facility] POCT GLUCOSE (AUTOMATED) 2021-11-19 17:06:00 Ron [facility] POCT GLUCOSE (AUTOMATED) 2021-11-19 13:12:00 Figueroa, [facility] POCT GLUCOSE (AUTOMATED) 2021-11-18 21:23:00 Ron [facility] POCT GLUCOSE (AUTOMATED) 2021-11-18 17:54:00 Figueroa, [facility] MAGNESIUM 2021-11-18 09:58:00 Jorge Alberto [facility] BASIC METABOLIC PANEL (NA, 2021-11-18 09:58:00 HamiltonDiana U [facility] K, CL, CO2, GLUCOSE, BUN, Medica l Branch CREATININE, CA) CBC WITH DIFF 2021-11-18 09:58:00 [facility] POCT GLUCOSE (AUTOMATED) 2021-11-18 01:33:00 Ron [facility] POCT GLUCOSE (AUTOMATED) 2021-11-17 21:55:00 Figueroa, [facility] POCT GLUCOSE (AUTOMATED) 2021-11-17 17:00:00 Figueroa, [facility] POCT GLUCOSE (AUTOMATED) 2021-11-17 12:55:00 [facility]OLIC PANEL (NA, 2021-11-17 11:02:00 [facility]dd[facility], CO2, GLUCOSE, BUN, Medica l Branch CREATININE, CA) POCT GLUCOSE (AUTOMATED) 2021-11-17 01:39:00 Figueroa, [facility] POCT GLUCOSE (AUTOMATED) 2021-11-16 21:20:00 Figueroa, [facility] POCT GLUCOSE (AUTOMATED) 2021-11-16 16:46:00 Figueroa, [facility] POCT GLUCOSE (AUTOMATED) 2021-11-16 12:33:00 Figueroa, [facility] POCT GLUCOSE (AUTOMATED) 2021-11-16 01:26:00 Figueroa, [facility] POCT GLUCOSE (AUTOMATED) 2021-11-15 21:41:00 Figueroa, [facility] POCT GLUCOSE (AUTOMATED) 2021-11-15 16:32:00 Figueroa, [facility] POCT GLUCOSE (AUTOMATED) 2021-11-15 12:45:00 Ron [facility] MAGNESIUM 2021-11-15 08:43:00 Jorge Alberto [facility] BASIC METABOLIC PANEL (NA, 2021-11-15 08:43:00 Hamilton, [facility] [place] K, CL, CO2, GLUCOSE, BUN, Medica [facility] Branch CREATININE, CA) CBC WITH DIFF 2021-11-15 08:43:00 Jorge Alberto [facility] POCT GLUCOSE (AUTOMATED) 2021-11-14 21:52:00 Ron [facility] POCT GLUCOSE (AUTOMATED) 2021-11-14 16:49:00 Ron [facility] POCT GLUCOSE (AUTOMATED) 2021-11-14 12:48:00 Ron [facility] XR CHEST 1 VW 2021-11-14 11:10:00 Jorge Alberto [facility] MAGNESIUM 2021-11-14 09:27:00 Jorge Alberto [facility] BASIC METABOLIC PANEL (NA, 2021-11-14 09:27:00 HamiltonDiana [facility] [place] K, CL, CO2, GLUCOSE, BUN, Medica [facility] Branch CREATININE, CA) CBC WITH DIFF 2021-11-14 09:27:00 Diana Hamilton [facility] POCT GLUCOSE (AUTOMATED) 2021-11-13 22:03:00 Ron [facility] POCT GLUCOSE (AUTOMATED) 2021-11-13 18:10:00 [facility] 2021-11-13 10:10:00 Diana Hamilton [facility] BASIC METABOLIC PANEL (NA, 2021-11-13 10:10:00 Hamilton, [facility] [place] K, CL, CO2, GLUCOSE, BUN, Medica [facility] Branch CREATININE, CA) CBC WITH DIFF 2021-11-13 10:10:00 Diana Hamilton [facility] POCT GLUCOSE (AUTOMATED) 2021-11-12 17:32:00 Ron [facility] POCT GLUCOSE (AUTOMATED) 2021-11-12 10:56:00 Ron [facility] MAGNESIUM 2021-11-12 10:41:00 Jorge Alberto Diana [facility] BASIC METABOLIC PANEL (NA, 2021-11-12 10:41:00 Hamilton, [facility] [place] K, CL, CO2, GLUCOSE, BUN, Medica Branch CREATININE, CA) CBC WITH DIFF 2021-11-12 10:41:00 Diana Hamilton [facility] POCT GLUCOSE (AUTOMATED) 2021-11-12 04:26:00 Ron [facility] POCT GLUCOSE (AUTOMATED) 2021-11-11 21:16:00 Ron [facility] POCT GLUCOSE (AUTOMATED) 2021-11-11 17:05:00 Ron [facility] XR CHEST 1 VW 2021-11-11 10:55:00 Diana Hamilton [facility] POCT GLUCOSE (AUTOMATED) 2021-11-11 10:40:00 Ron [facility] ACUTE CARE ARTERIAL BLOOD 2021-11-11 09:05:00 [facility] 2021-11-11 08:54:00 Diana Hamilton [facility] BASIC METABOLIC PANEL (NA, 2021-11-11 08:54:00 Diana Hamilton U [facility] K, CL, CO2, GLUCOSE, BUN, Medica l Branch CREATININE, CA) CBC WITH DIFF 2021-11-11 08:54:00 Jorge Alberto [facility] POCT GLUCOSE (AUTOMATED) 2021-11-11 04:49:00 Figueroa, [facility] POCT GLUCOSE (AUTOMATED) 2021-11-10 22:53:00 Figueroa, [facility] POCT GLUCOSE (AUTOMATED) 2021-11-10 17:23:00 Ron [facility] ACUTE CARE ARTERIAL BLOOD 2021-11-10 15:35:00 Diana Hamilton [facility] POCT GLUCOSE (AUTOMATED) 2021-11-10 11:09:00 Ron [facility] MAGNESIUM 2021-11-10 09:21:00 Ron [facility] BASIC METABOLIC PANEL (NA, 2021-11-10 09:21:00 Tee Figueroa [facility] K, CL, CO2, GLUCOSE, BUN, Medica l Branch CREATININE, CA) CBC WITH DIFF 2021-11-10 09:21:00 [facility] ([facility]OMATED) 2021-11-10 04:39:00 Ron [facility] POCT GLUCOSE (AUTOMATED) 2021-11-09 22:17:00 Ron [facility] POCT GLUCOSE (AUTOMATED) 2021-11-09 17:04:00 Ron [facility] POCT GLUCOSE (AUTOMATED) 2021-11-09 10:29:00 Ron [facility] PHOSPHORUS 2021-11-09 10:10:00 [facility] 2021-11-09 10:10:00 Braulio Figueroa [facility] BASIC METABOLIC PANEL (NA, 2021-11-09 10:10:00 Tee Figueroa [facility] K, CL, CO2, GLUCOSE, BUN, Medica l Branch CREATININE, CA) CBC WITH DIFF 2021-11-09 10:10:00 Braulio Figueroa [facility] ACUTE CARE ARTERIAL BLOOD 2021-11-09 09:33:00 Mariann Figueroa [facility] POCT GLUCOSE (AUTOMATED) 2021-11-09 04:10:00 [facility]SE (AUTOMATED) 2021-11-08 22:41:00 [facility] POCT GLUCOSE (AUTOMATED) 2021-11-08 16:55:[address] [facility] XR CHEST 1 VW 2021-11-08 11:16:00 Diana Hamilton [facility] POCT GLUCOSE (AUTOMATED) 2021-11-08 10:50:00 [facility] 2021-11-08 10:00:00 Diana Hamilton [facility] BASIC METABOLIC PANEL (NA, 2021-11-08 10:00:00 Diana Hamilton [facility] K, CL, CO2, GLUCOSE, BUN, Medica l Branch CREATININE, CA) CBC WITH DIFF 2021-11-08 10:00:00 Diana Hamilton [facility] ACUTE CARE ARTERIAL BLOOD 2021-11-08 09:16:00 Diana Hamilton [facility] POCT GLUCOSE (AUTOMATED) 2021-11-08 04:52:00 Ron [facility] C-REACTIVE PROTEIN 2021-11-07 23:05:00 Radha [facility] POCT GLUCOSE (AUTOMATED) 2021-11-07 19:01:00 [facility] CONTRAST 2021-11-07 17:24:10 Diana Hamilton [facility] ACUTE CARE ARTERIAL BLOOD 2021-11-07 10:25:[address] [facility] MAGNESIUM 2021-11-07 10:09:00 Jorge Alberto [facility] BASIC METABOLIC PANEL (NA, 2021-11-07 10:09:00 [facility], CL, CO2, GLUCOSE, BUN, Medica l Branch CREATININE, CA) CBC WITH DIFF 2021-11-07 10:09:00 Jorge Alberto [facility] POCT GLUCOSE (AUTOMATED) 2021-11-07 05:16:00 Ron [facility] POCT GLUCOSE (AUTOMATED) 2021-11-06 23:31:00 Ron [facility] POCT GLUCOSE (AUTOMATED) 2021-11-06 16:30:00 Ron [facility] XR CHEST 1 VW 2021-11-06 12:07:00 Jorge Alberto [facility] POCT GLUCOSE (AUTOMATED) 2021-11-06 10:39:00 [facility] 2021-11-06 09:36:00 Jorge Alberto [facility] BASIC METABOLIC PANEL (NA, 2021-11-06 09:36:00 Diana Hamilton [facility] K, CL, CO2, GLUCOSE, BUN, Medica l Branch CREATININE, CA) CBC WITH DIFF 2021-11-06 09:36:00 [facility] 2021-11-06 08:55:[address] [facility] POCT GLUCOSE (AUTOMATED) 2021-11-06 04:37:00 Ron [facility] POCT GLUCOSE (AUTOMATED) 2021-11-05 23:45:00 Ron [facility] POCT GLUCOSE (AUTOMATED) 2021-11-05 22:45:00 [facility] XR ABDOMEN 1 VW 2021-11-05 19:51:02 [facility] 2021-11-05 17:06:00 [facility] 2021-11-05 11:01:00 Diana Hamilton [facility] BASIC METABOLIC PANEL (NA, 2021-11-05 11:01:00 Diana [facility] [place] K, CL, CO2, GLUCOSE, BUN, Medica [facility] Branch CREATININE, CA) CBC WITH DIFF 2021-11-05 11:01:00 [facility] 1 VW 2021-11-05 10:37:00 Jorge Alberto [facility] ACUTE CARE ARTERIAL BLOOD 2021-11-05 08:59:00 [facility]ATED) 2021-11-05 05:17:00 Ron [facility] POCT GLUCOSE (AUTOMATED) 2021-11-04 22:34:00 Ron [facility] POCT GLUCOSE (AUTOMATED) 2021-11-04 16:37:00 Ron [facility] POCT GLUCOSE (AUTOMATED) 2021-11-04 11:00:00 [facility] 2021-11-04 10:03:00 [facility] PANEL (NA, 2021-11-04 10:03:00 Diana [facility] [place] K, CL, CO2, GLUCOSE, BUN, Medica l Branch CREATININE, CA) CBC WITH DIFF 2021-11-04 10:03:00 [facility] 2021-11-04 09:05:00 [facility] ([facility]OMATED) 2021-11-04 04:43:00 Figueroa, [facility] POCT GLUCOSE (AUTOMATED) 2021-11-03 22:52:[address] [facility] POCT GLUCOSE (AUTOMATED) 2021-11-03 16:45:[address] [facility] POCT GLUCOSE (AUTOMATED) 2021-11-03 10:49:[address] [facility] XR CHEST 1 VW 2021-11-03 09:57:20 Jorge Alberto [facility] MAGNESIUM 2021-11-03 09:06:00 Jorge Alberto [facility] BASIC METABOLIC PANEL (NA, 2021-11-03 09:06:00 Diana Hamilton U [facility] K, CL, CO2, GLUCOSE, BUN, Medica l Branch CREATININE, CA) CBC WITH DIFF 2021-11-03 09:06:00 Jorge Alberto [facility] ACUTE CARE ARTERIAL BLOOD 2021-11-03 08:59:00 Diana Hamilton [facility] POCT GLUCOSE (AUTOMATED) 2021-11-03 05:11:00 [facility]SE ([facility]OMATED) 2021-11-02 22:00:00 [facility] PO[facility]SE (AUTOMATED) 2021-11-02 17:14:00 [facility] AC PANEL 20 + LACTIC ACID 2021-11-02 16:33:00 Mariann Figueroa [facility] TRANSTHORACIC ECHO (TTE) 2021-11-02 13:10:00 Eddie Cooley [facility] COMPLETE W/ CONTRAST Medical [facility] POCT GLUCOSE (AUTOMATED) 2021-11-02 11:51:[address] [facility] MAGNESIUM 2021-11-02 10:38:[address] [facility]. METABOLIC PANEL 2021-11-02 10:38:00 Braulio Figueroa [facility] ([id number]) [facility] CBC WITHOUT DIFF 2021-11-02 10:38:00 Braulio Figueroa [facility] ACUTE CARE ARTERIAL BLOOD 2021-11-02 09:22:00 Mariann Figueroa [facility] GAS [facility] CREATINE KINASE 2021-11-02 06:26:00 Lenora [facility] BASIC METABOLIC PANEL (NA, 2021-11-02 06:26:00 Eddie Cooley [facility] K, CL, CO2, GLUCOSE, BUN, Medica l Branch CREATININE, CA) MRSA / MSSA SCREEN BY PCR, 2021-11-02 06:26:00 Lenora Eddie [facility] CT THORAX WO CONTRAST 2021-11-02 03:02:00 Lenora [facility] FERRITIN SERUM 2021-11-01 23:09:00 Lenora [facility] C-REACTIVE PROTEIN 2021-11-01 23:09:00 [facility] TROPONIN I 2021-11-01 23:09:00 Lenora [facility] GLYCOSYLATED HEMOGLOBIN 2021-11-01 23:09:00 [facility] (A1C) [facility] AC ABG + LACTIC ACID 2021-11-01 22:51:00 Lenora [facility] XR CHEST 1 VW 2021-11-01 22:49:49 [facility] XR CHEST 1 VW 2021-11-01 21:40:00 Braulio Figueroa [facility] PHOSPHORUS 2021-11-01 21:27:00 Braulio Figueroa [facility] LACTATE DEHYDROGENASE 2021-11-01 21:27:00 Braulio Figueroa [facility] MAGNESIUM 2021-11-01 21:27:00 Braulio Figueroa [facility] BASIC METABOLIC PANEL (NA, 2021-11-01 21:27:00 Tee Figueroa [facility] K, CL, CO2, GLUCOSE, BUN, Medica l Branch CREATININE, CA) CBC WITH DIFF 2021-11-01 21:27:00 Braulio Figueroa [facility] PROTHROMBIN TIME / INR 2021-11-01 21:27:00 Braulio Figueroa [facility] ACTIVATED PARTIAL THRMPLAS 2021-11-01 21:27:00 Tee Figueroa [facility] N-TERMINAL PRO-BNP 2021-11-01 21:27:00 [facility]EL 20 + LACTIC ACID 2021-11-01 21:01:[address] [facility] POTASSIUM SERUM 2021-11-01 19:11:00 Kenyetta Rehman [facility] XR CHEST 1 VW 2021-11-01 18:47:00 Jose D [facility] NC INSERT EMERGENCY 2021-11-01 18:31:35 Jose D Tl [facility] ENDOTRACH AIRWAY [facility] CRITICAL CARE 2021-11-01 18:30:48 Jose D [facility] ACUTE CARE VENOUS BLOOD 2021-11-01 17:29:00 Kenyetta Rehman [facility] ACUTE CARE VENOUS BLOOD 2021-11-01 16:30:00 Kenyetta Rehman [facility] CT HEAD WO CONTRAST 2021-11-01 14:01:00 Kenyetta Rehman [facility] XR CHEST 1 VW 2021-11-01 13:45:00 Kenyetta Rehman [facility] HB ECG ROUTINE & RHYTHM 2021-11-01 13:35:49 Kenyetta Rehman [facility] RAPID INFLUENZA A/B 2021-11-01 13:26:00 Kenyetta Rehman [facility] AC PANEL 21 + LACTIC ACID 2021-11-01 13:26:00 [facility] RAP[facility] 2021-11-01 13:26:00 [facility] 2021-11-01 13:26:00 Kenyetta Rehman [facility] INTERPRETATION [facility] BLOOD CULTURE SCREEN 2021-11-01 13:23:00 Kenyetta Rehman [facility] MAGNESIUM 2021-11-01 13:23:00 Kenyetta Rehman [facility] AMMONIA, PLASMA 2021-11-01 13:23:00 Kenyetta Rehman [facility] TROPONIN I 2021-11-01 13:23:00 Kenyetta Rehman [facility] COMP. METABOLIC PANEL 2021-11-01 13:23:00 Kenyetta Rehman [facility] ([id number]) Medical Branch ETHANOL 2021-11-01 13:23:00 Kenyetta Rehman [facility] CBC WITH DIFF 2021-11-01 13:23:00 Kenyetta Rehman [facility] URINALYSIS 2021-11-01 13:23:00 Kenyetta Rehman [facility] URINE CULTURE 2021-11-01 13:23:00 Kenyetta Rehman [facility] N-TERMINAL PRO-BNP 2021-11-01 13:23:00 Kenyetta Rehman [facility] BLOOD CULTURE WORKUP 2021-11-01 13:23:00 Kenyetta Rehman [facility] GRAM POSITIVE BLOOD 2021-11-01 13:23:00 Kenyetta Rehman [facility] PATHOGENS DNA [facility] PROBE-AEROBIC CONSENT/REFUSAL FOR 2021-11-01 13:07:50 Doctor Yovany, [facility] DIAGNOSIS AND TREATMENT [facility] EXTERNAL PROVIDER RECORDS 2021-11-01 05:01:00 Doctor Pedroza, [facility] EMERGENCY DEPARTMENT 2021-11-01 05:01:[address] [facility] DOCUMENTS [place] [facility] HOSPITAL ADMISSION 2021-11-01 05:01:00 Doctor Yovany, [facility] [id number] 2021-05-15 00:00:00 ENCPL Abdominal aortogram 2021-04-25 06:00:00 [facility] SARS-COV-2 COVID-19 2020-11-12 18:52:08 Doctor Unassigned, [facility] VACCINE,0.3ML,IM (PFIZER) [place] [facility] ASSIGNMENT OF BENEFITS 2020-11-12 18:06:31 Doctor [facility], [facility] [place] [facility] [place] POCT GLUCOSE (AUTOMATED) 2020-07-22 17:44:00 [facility]OM[facility]) 2020-07-22 14:38:00 Lizette Goldstein Uni [facility] COVID-19 (ID NOW RAPID 2020-07-22 14:11:00 Amanuel Borja [facility] TESTING) Medical Branch MAGNESIUM 2020-07-22 09:35:00 [facility] BASIC METABOLIC PANEL (NA, 2020-07-22 09:35:00 Ursula De Leon [facility] K, CL, CO2, GLUCOSE, BUN, Medica l Branch CREATININE, CA) CBC WITH DIFF 2020-07-22 09:35:00 [facility] PO[facility] GLUCOSE (AUTOMATED) 2020-07-22 01:35:00 Lizette Goldstein Uni [facility] POCT GLUCOSE (AUTOMATED) 2020-07-21 22:46:00 Lizette Goldstein Uni [facility] XR SHOULDER <2 VW LEFT 2020-07-21 21:50:00 Ursula De Leon [facility] POCT GLUCOSE (AUTOMATED) 2020-07-21 17:37:00 Lizette Goldstein Uni [facility] POCT GLUCOSE (AUTOMATED) 2020-07-21 14:20:00 [facility] 2020-07-21 09:32:00 [facility] BASIC METABOLIC PANEL (NA, 2020-07-21 09:32:00 Theresa aMdrigal [facility] K, CL, CO2, GLUCOSE, BUN, Medica l Branch CREATININE, CA) CBC WITH DIFF 2020-07-21 09:32:00 [facility] POCT GLUCOSE (AUTOMATED) 2020-07-21 02:13:00 Lizette Goldstein [facility] POCT GLUCOSE (AUTOMATED) 2020-07-20 23:01:00 Emery Goldsteindonte Uni versity of [facility] POCT GLUCOSE (AUTOMATED) 2020-07-20 18:21:00 EliasaliEmery lemusdonte Uni versity of [facility] POCT GLUCOSE (AUTOMATED) 2020-07-20 15:04:00 Lizette Goldstein Uni versity [facility] MAGNESIUM 2020-07-20 10:16:00 [facility] BASIC METABOLIC PANEL (NA, 2020-07-20 10:16:00 Theresa Madrigal U [facility] K, CL, CO2, GLUCOSE, BUN, Medica l Branch CREATININE, CA) CBC WITH DIFF 2020-07-20 10:16:00 [facility] POCT GLUCOSE (AUTOMATED) 2020-07-20 02:15:00 Lizette Goldstein Uni versity [facility] POCT GLUCOSE (AUTOMATED) 2020-07-19 23:53:00 Lizette Goldstein Uni versity [facility] POCT GLUCOSE (AUTOMATED) 2020-07-19 17:32:00 Lizette Goldstein Uni versity [facility] POCT GLUCOSE (AUTOMATED) 2020-07-19 13:10:00 Lizette Goldstein Uni vers[facility] MAGNESIUM 2020-07-19 10:02:00 [facility] BASIC METABOLIC PANEL (NA, 2020-07-19 10:02:00 [facility]ula [facility] Leon [facility] K, CL, CO2, GLUCOSE, BUN, Medica l Branch CREATININE, CA) CBC WITH DIFF 2020-07-19 10:02:00 [facility] POCT GLUCOSE (AUTOMATED) 2020-07-19 02:28:00 Lizette Goldstein [facility] POCT GLUCOSE (AUTOMATED) 2020-07-18 23:43:00 Lizette Goldstein [facility] CT HEAD WO CONTRAST 2020-07-18 21:59:15 Kaitlin Theresa [facility] URINALYSIS 2020-07-18 11:50:00 Crandall [facility] MAGNESIUM 2020-07-18 09:52:00 Shaikh [facility] AMMONIA, PLASMA 2020-07-18 09:52:00 Kaitlin [facility] BASIC METABOLIC PANEL (NA, 2020-07-18 09:52:00 [facility], CL, CO2, GLUCOSE, BUN, Medica l Branch CREATININE, CA) CBC WITH DIFF 2020-07-18 09:52:00 Shaikh [facility] POCT GLUCOSE (AUTOMATED) 2020-07-18 02:29:00 Lizette Goldstein [facility] POCT GLUCOSE (AUTOMATED) 2020-07-17 22:15:00 Lizette Goldstein [facility] MAGNESIUM 2020-07-17 20:34:00 Kaitlin [facility] VITAMIN B12, LEVEL 2020-07-17 20:34:00 Theresa Madrigal [facility] BASIC METABOLIC PANEL (NA, 2020-07-17 20:34:00 Theresa Madrigal [facility] K, CL, CO2, GLUCOSE, BUN, Medica l Branch CREATININE, CA) POCT GLUCOSE (AUTOMATED) 2020-07-17 17:38:00 Lizette Goldstein [facility] POCT GLUCOSE (AUTOMATED) 2020-07-17 14:25:00 Lizette Goldstein [facility] MAGNESIUM 2020-07-17 09:50:00 [facility] BASIC METABOLIC PANEL (NA, 2020-07-17 09:50:00 Theresa [facility]rigal [facility] K, CL, CO2, GLUCOSE, BUN, Medica l Branch CREATININE, CA) CBC WITH DIFF 2020-07-17 09:50:00 [facility] POCT GLUCOSE (AUTOMATED) 2020-07-17 09:48:00 EliasaliLizette lemus Uni vers[facility] POCT GLUCOSE (AUTOMATED) 2020-07-17 04:52:00 Khalife, Emerym Uni vers[facility] POCT GLUCOSE (AUTOMATED) 2020-07-17 03:54:00 KhEmery gillism Uni vers[facility] POCT GLUCOSE (AUTOMATED) 2020-07-17 00:02:00 Lizette Goldstein Uni vers[facility] MAGNESIUM 2020-07-16 22:16:00 Theresa Madrigal [facility] BASIC METABOLIC PANEL (NA, 2020-07-16 22:16:00 Crandall, [facility] [place] K, CL, CO2, GLUCOSE, BUN, Medica l Branch CREATININE, CA) AC PANEL 21 + LACTIC ACID 2020-07-16 22:16:00 Crandall, Ahy [facility] PO[facility] GLUCOSE (AUTOMATED) 2020-07-16 21:01:00 Lizette Goldstein Uni vers[facility] POCT GLUCOSE (AUTOMATED) 2020-07-16 16:23:00 KhaliLizette lemus Uni vers[facility] POCT GLUCOSE (AUTOMATED) 2020-07-16 13:34:00 KhEmery gillism Uni vers[facility] POCT GLUCOSE (AUTOMATED) 2020-07-16 10:29:00 Lizette Goldstein Uni vers[facility] MAGNESIUM 2020-07-16 09:13:00 [facility] FREE T4 2020-07-16 09:13:00 Gina Yanes [facility] BASIC METABOLIC PANEL (NA, 2020-07-16 09:13:00 Hay [facility]all [facility], CL, CO2, GLUCOSE, BUN, Medica l Branch CREATININE, CA) CBC WITH DIFF 2020-07-16 09:13:00 [facility] ACTIVATED PARTIAL THRMPLAS 2020-07-16 09:13:00 [facility] PO[facility]UCOSE (AUTOMATED) 2020-07-16 08:36:00 Triston Doriedonte Uni versity [facility] POCT GLUCOSE (AUTOMATED) 2020-07-16 04:33:00 LondonfeEmery [facility] PO[facility] GLUCOSE (AUTOMATED) 2020-07-16 00:09:00 Lizette Goldstein Uni [facility] MAGNESIUM 2020-07-15 21:02:00 Theresa Madrigal [facility] BASIC METABOLIC PANEL (NA, 2020-07-15 21:02:00 Theresa Madrigal [facility] K, CL, CO2, GLUCOSE, BUN, Medica l Branch CREATININE, CA) ACTIVATED PARTIAL THRMPLAS 2020-07-15 21:02:00 [facility] POCT GLUCOSE (AUTOMATED) 2020-07-15 21:01:00 Lizette Goldstein Uni [facility] POCT GLUCOSE (AUTOMATED) 2020-07-15 16:11:[address] [facility] POCT GLUCOSE (AUTOMATED) 2020-07-15 13:11:[address] [facility] MAGNESIUM 2020-07-15 09:19:00 [facility] BASIC METABOLIC PANEL (NA, 2020-07-15 09:19:00 Angel [facility]endez [facility] K, CL, CO2, GLUCOSE, BUN, Medica l Branch CREATININE, CA) CBC WITH DIFF 2020-07-15 09:19:[address] [facility] ACTIVATED PARTIAL THRMPLAS 2020-07-15 09:19:00 Alanna Avalos [facility] POCT GLUCOSE (AUTOMATED) 2020-07-15 05:06:[address] [facility] POCT GLUCOSE (AUTOMATED) 2020-07-15 00:18:[address] [facility] ACTIVATED PARTIAL THRMPLAS 2020-07-14 22:05:00 Alanna Avalos [facility] POCT GLUCOSE (AUTOMATED) 2020-07-14 21:33:[address] [facility] POCT GLUCOSE (AUTOMATED) 2020-07-14 16:40:[address] [facility] ACTIVATED PARTIAL THRMPLAS 2020-07-14 16:31:00 Alanna Avalos [facility] POCT GLUCOSE (AUTOMATED) 2020-07-14 14:46:[address] [facility] AC PANEL 20 + LACTIC ACID 2020-07-14 12:56:00 Alanna Avalos [facility] POCT GLUCOSE (AUTOMATED) 2020-07-14 09:37:[address] [facility] MAGNESIUM 2020-07-14 07:25:[address] [facility] BASIC METABOLIC PANEL (NA, 2020-07-14 07:25:00 Shea Rasheed [facility] K, CL, CO2, GLUCOSE, BUN, Vi Medica l Branch CREATININE, CA) CBC WITH DIFF 2020-07-14 07:25:[address] [facility] POCT GLUCOSE (AUTOMATED) 2020-07-14 05:15:[address] [facility] ACTIVATED PARTIAL THRMPLAS 2020-07-14 02:55:00 Alanna Avalos [facility] POCT GLUCOSE (AUTOMATED) 2020-07-14 00:27:[address] [facility] POCT GLUCOSE (AUTOMATED) 2020-07-13 22:08:[address] [facility] BASIC METABOLIC PANEL (NA, 2020-07-13 21:33:00 Muraleedrlan, [facility] K, CL, CO2, GLUCOSE, BUN, Vi Medica l Branch CREATININE, CA) AC PANEL 20 + LACTIC ACID 2020-07-13 17:35:00 Alanna Avalos [facility] POCT GLUCOSE (AUTOMATED) 2020-07-13 16:57:[address] [facility] ACTIVATED PARTIAL THRMPLAS 2020-07-13 13:38:00 Alanna Avalos [facility] POCT GLUCOSE (AUTOMATED) 2020-07-13 12:36:[address] [facility] MAGNESIUM 2020-07-13 10:15:[address] [facility] BASIC METABOLIC PANEL (NA, 2020-07-13 10:15:00 Muraleedrlan, [facility] [place] [facility], CL, CO2, GLUCOSE, BUN, Vi Medica l Branch CREATININE, CA) CBC WITH DIFF 2020-07-13 10:15:[address] [facility] POCT GLUCOSE (AUTOMATED) 2020-07-13 10:12:[address] [facility] POCT GLUCOSE (AUTOMATED) 2020-07-13 04:10:[address] [facility] ACTIVATED PARTIAL THRMPLAS 2020-07-13 01:15:00 Alanna Avalos [facility] POCT GLUCOSE (AUTOMATED) 2020-07-13 01:12:[address] [facility] BASIC METABOLIC PANEL (NA, 2020-07-12 23:12:00 Muraleedharan, [facility] [place] K, CL, CO2, GLUCOSE, BUN, Vi Medica l Branch CREATININE, CA) POCT GLUCOSE (AUTOMATED) 2020-07-12 21:30:[address] [facility] ACTIVATED PARTIAL THRMPLAS 2020-07-12 18:05:00 Alanna Avalos [facility] VITAMIN D, 25-OH 2020-07-12 18:05:[address] [facility] POCT GLUCOSE (AUTOMATED) 2020-07-12 16:36:[address] [facility] POCT GLUCOSE (AUTOMATED) 2020-07-12 12:43:[address] [facility] MAGNESIUM 2020-07-12 09:48:[address] [facility] BASIC METABOLIC PANEL (NA, 2020-07-12 09:48:00 Muraleedharan, U [facility] K, CL, CO2, GLUCOSE, BUN, Vi Medica l Branch CREATININE, CA) CBC WITH DIFF 2020-07-12 09:48:[address] [facility] LACTIC ACID WHOLE BLOOD 2020-07-12 09:48:00 Alanna Avalos [facility] POCT GLUCOSE (AUTOMATED) 2020-07-12 09:41:[address] [facility] ACTIVATED PARTIAL THRMPLAS 2020-07-12 04:49:00 Alanna Avalos [facility] POCT GLUCOSE (AUTOMATED) 2020-07-12 04:18:[address] [facility] POCT GLUCOSE (AUTOMATED) 2020-07-12 00:57:[address] [facility] BASIC METABOLIC PANEL (NA, 2020-07-11 22:29:00 Muraleedharan, U [facility] K, CL, CO2, GLUCOSE, BUN, Vi Medica l Branch CREATININE, CA) ACTIVATED PARTIAL THRMPLAS 2020-07-11 22:29:00 [facility]valos[facility] ([facility]OMATED) 2020-07-11 21:08:[address] [facility] POCT GLUCOSE (AUTOMATED) 2020-07-11 17:12:[address] [facility] ACUTE CARE ARTERIAL BLOOD 2020-07-11 15:23:09 Radha Rod [facility] POCT GLUCOSE (AUTOMATED) 2020-07-11 13:16:[address] [facility] MAGNESIUM 2020-07-11 10:30:[address] [facility] BASIC METABOLIC PANEL (NA, 2020-07-11 10:30:00 Wili, U [facility] K, CL, CO2, GLUCOSE, BUN, Vi Medica l Branch CREATININE, CA) CBC WITH DIFF 2020-07-11 10:30:00 [facility] ACTIVATED PARTIAL THRMPLAS 2020-07-11 10:30:00 [facility] LACTIC ACID WHOLE BLOOD 2020-07-11 10:28:00 Alanna Avalos [facility] POCT GLUCOSE (AUTOMATED) 2020-07-11 10:21:[address] [facility] ACTIVATED PARTIAL THRMPLAS 2020-07-11 04:40:00 Alanna Avalos [facility] POCT GLUCOSE (AUTOMATED) 2020-07-11 04:37:[address] [facility] POCT GLUCOSE (AUTOMATED) 2020-07-11 00:44:[address] [facility] BASIC METABOLIC PANEL (NA, 2020-07-10 23:08:00 Wili, U [facility] K, CL, CO2, GLUCOSE, BUN, Vi Medica l Branch CREATININE, CA) ACTIVATED PARTIAL THRMPLAS 2020-07-10 23:07:00 Avalos, [facility] PO[facility]SE (AUTOMATED) 2020-07-10 21:37:[address] [facility] POCT GLUCOSE (AUTOMATED) 2020-07-10 16:31:[address] [facility] POCT GLUCOSE (AUTOMATED) 2020-07-10 16:31:[address] [facility] ACTIVATED PARTIAL THRMPLAS 2020-07-10 16:25:00 [facility] ACTIVATED PARTIAL THRMPLAS 2020-07-10 16:25:00 [facility]W 2020-07-10 16:24:00 [facility] VANCOMYCIN TROUGH 2020-07-10 13:17:00 Shaikh [facility] VANCOMYCIN TROUGH 2020-07-10 13:17:00 Shaikh [facility] POCT GLUCOSE (AUTOMATED) 2020-07-10 12:41:[address] [facility] POCT GLUCOSE (AUTOMATED) 2020-07-10 12:41:[address] [facility] MAGNESIUM 2020-07-10 09:23:00 [facility] BASIC METABOLIC PANEL (NA, 2020-07-10 09:23:00 Shea Rasheed [facility] K, CL, CO2, GLUCOSE, BUN, Vi Medica l Branch CREATININE, CA) CBC WITH DIFF 2020-07-10 09:23:00 [facility] ACTIVATED PARTIAL THRMPLAS 2020-07-10 09:23:00 [facility] LACTIC ACID WHOLE BLOOD 2020-07-10 09:23:00 Alanna Avalos [facility] CBC WITH DIFF 2020-07-10 09:23:00 [facility] BASIC METABOLIC PANEL (NA, 2020-07-10 09:23:00 Murclaude, U [facility] K, CL, CO2, GLUCOSE, BUN, Vi Medica l Branch CREATININE, CA) LACTIC ACID WHOLE BLOOD 2020-07-10 09:23:00 Alanna Avalos Uni [facility] MAGNESIUM 2020-07-10 09:23:[address] [facility] ACTIVATED PARTIAL THRMPLAS 2020-07-10 09:23:00 Alanna Avalos [facility] POCT GLUCOSE (AUTOMATED) 2020-07-10 09:22:00 Iturrizaga-Irina , [facility] POCT GLUCOSE (AUTOMATED) 2020-07-10 09:22:00 Iturrizaga-[place] , [facility] POCT GLUCOSE (AUTOMATED) 2020-07-10 04:59:00 Itsuzanna-Irina , [facility] POCT GLUCOSE (AUTOMATED) 2020-07-10 04:59:00 Itsuzanna-Irina , [facility] POCT GLUCOSE (AUTOMATED) 2020-07-10 00:28:00 Papo-Irina , [facility] POCT GLUCOSE (AUTOMATED) 2020-07-10 00:28:00 Itsuzanna-Irina , [facility] ACTIVATED PARTIAL THRMPLAS 2020-07-09 23:14:00 Leena Rod[facility]guez [facility] ACTIVATED PARTIAL THRMPLAS 2020-07-09 23:14:00 Leena Rodríguez [facility] POCT GLUCOSE (AUTOMATED) 2020-07-09 21:30:00 Papo-Irina , [facility] POCT GLUCOSE (AUTOMATED) 2020-07-09 21:30:[address] [facility] BASIC METABOLIC PANEL (NA, 2020-07-09 21:06:00 Murclaude, U [facility] K, CL, CO2, GLUCOSE, BUN, Vi Medica [facility] Branch CREATININE, CA) ACTIVATED PARTIAL THRMPLAS 2020-07-09 21:06:00 Leena Rodríguez [facility] BASIC METABOLIC PANEL (NA, 2020-07-09 21:06:00 Shea Rasheed [facility] K, CL, CO2, GLUCOSE, BUN, Vi Medica l Branch CREATININE, CA) ACTIVATED PARTIAL THRMPLAS 2020-07-09 21:06:00 Leena Rodríguez [facility] EKG-12 LEAD 2020-07-09 19:04:39 Leena Rodríguez [facility] POCT ACT LOW RANGE 2020-07-09 17:44:00 Noel [facility] POCT ACT LOW RANGE 2020-07-09 17:44:00 Noel [facility] POCT ACT LOW RANGE 2020-07-09 16:28:00 Noel [facility] POCT ACT LOW RANGE 2020-07-09 16:28:00 Noel [facility] POCT ACT LOW RANGE 2020-07-09 16:20:00 Ovchristine [facility] POCT ACT LOW RANGE 2020-07-09 16:20:00 Noel [facility] CORONARY ANGIOGRAPHY 2020-07-09 16:07:57 Doctor Unassigned, [facility] Name [facility] CORONARY ANGIOGRAPHY 2020-07-09 15:13:20 Doctor Unassigned, [facility] [place] POCT GLUCOSE (AUTOMATED) 2020-07-09 13:48:00 Ricardo Cohen [facility] POCT GLUCOSE (AUTOMATED) 2020-07-09 13:48:00 Ricardo Cohen [facility] LACTIC ACID WHOLE BLOOD 2020-07-09 09:05:00 Alanna Avalos [facility] LACTIC ACID WHOLE BLOOD 2020-07-09 09:05:00 Alanna Avalos [facility] MAGNESIUM 2020-07-09 09:04:00 [facility] BASIC METABOLIC PANEL (NA, 2020-07-09 09:04:00 Wili, U [facility] K, CL, CO2, GLUCOSE, BUN, [facility] [place] CREATININE, CA) CBC WITH DIFF 2020-07-09 09:04:00 [facility] CBC WITH DIFF 2020-07-09 09:04:[address] [facility] BASIC METABOLIC PANEL (NA, 2020-07-09 09:04:00 Wili, U [facility] K, CL, CO2, GLUCOSE, BUN, [facility] CREATININE, CA) MAGNESIUM 2020-07-09 09:04:00 [facility] POCT GLUCOSE (AUTOMATED) 2020-07-09 09:03:00 Ricardo Cohen [facility] POCT GLUCOSE (AUTOMATED) 2020-07-09 09:03:00 Ricardo Cohen [facility] ACTIVATED PARTIAL THRMPLAS 2020-07-09 05:02:00 [facility] ACTIVATED PARTIAL THRMPLAS 2020-07-09 05:02:00 [facility] POCT GLUCOSE (AUTOMATED) 2020-07-09 05:01:00 Ricardo Cohen Uni [facility] POCT GLUCOSE (AUTOMATED) 2020-07-09 05:01:00 Ricardo Cohen [facility] POCT GLUCOSE (AUTOMATED) 2020-07-09 01:04:00 [facility] ([facility]OMATED) 2020-07-09 01:04:00 Ricardo Cohen [facility] URINE CULTURE 2020-07-09 00:59:00 [facility] 2020-07-09 00:59:00 [facility] URINALYSIS 2020-07-09 00:58:00 [facility] SPUTUM CULTURE 2020-07-09 00:58:00 Shaikh [facility] URINALYSIS 2020-07-09 00:58:00 Shaikh [facility] SPUTUM CULTURE 2020-07-09 00:58:00 Shaikh [facility] BLOOD CULTURE SCREEN 2020-07-09 00:54:00 [facility] 2020-07-09 00:54:00 [facility] 2020-07-09 00:46:00 [facility] 2020-07-09 00:46:00 [facility] PO[facility] GLUCOSE (AUTOMATED) 2020-07-08 21:52:00 Ricardo Cohen [facility] POCT GLUCOSE (AUTOMATED) 2020-07-08 21:52:00 Ricardo Cohen [facility] BASIC METABOLIC PANEL (NA, 2020-07-08 20:27:00 Muraleedharan, [facility], CL, CO2, GLUCOSE, BUN, Vi [facility] CREATININE, CA) BASIC METABOLIC PANEL (NA, 2020-07-08 20:27:00 Muraleedharan, U [facility]iversity [facility] K, CL, CO2, GLUCOSE, BUN, Vi [facility]ica [facility] CREATININE, CA) COVID-19 (ID NOW RAPID 2020-07-08 20:25:00 Shaikh [facility] TESTING) Medical Branch LAB ONLY COVID 2020-07-08 20:25:00 Shaikh [facility] INTERPRETATION [facility] COVID-19 (ID NOW RAPID 2020-07-08 20:25:00 Shaikh [facility] TESTING) Medical Branch LAB ONLY COVID 2020-07-08 20:25:00 Shaikh [facility] POCT GLUCOSE (AUTOMATED) 2020-07-08 19:31:00 Ricardo Cohen [facility] POCT GLUCOSE (AUTOMATED) 2020-07-08 19:31:00 Ricardo Cohen [facility] POCT GLUCOSE (AUTOMATED) 2020-07-08 17:06:00 Ricardo Cohen [facility] POCT GLUCOSE (AUTOMATED) 2020-07-08 17:06:00 Ricardo Cohen [facility] ACTIVATED PARTIAL THRMPLAS 2020-07-08 17:02:00 [facility] PART[facility] THRMPLAS 2020-07-08 17:02:00 Shaikh [facility] XR CHEST 1 VW 2020-07-08 14:13:00 Shaikh [facility] XR CHEST 1 VW 2020-07-08 14:13:00 Shaikh [facility] POCT GLUCOSE (AUTOMATED) 2020-07-08 13:05:00 Ricardo Cohen [facility] POCT GLUCOSE (AUTOMATED) 2020-07-08 13:05:00 Ricardo Cohen [facility] AC PANEL 20 + LACTIC ACID 2020-07-08 09:03:00 Alanna Avalos [facility] AC PANEL 20 + LACTIC ACID 2020-07-08 09:03:00 Alanna Avalos [facility] MAGNESIUM 2020-07-08 09:02:00 Shaikh [facility] HEPATIC FUNCTION PANEL 2020-07-08 09:02:00 [id number] (ALB,T.PRO,[facility] T,BU/BC,ALT,AST,ALK PHOS) BASIC METABOLIC PANEL (NA, 2020-07-08 09:02[facility]00 [facility], CO2, GLUCOSE, BUN, [facility] CREATININE, CA) CBC WITH DIFF 2020-07-08 09:02:00 [facility]SE (AUTOMATED) 2020-07-08 09:02:00 Ricardo Cohen [facility] N-TERMINAL PRO-BNP 2020-07-08 09:02:00 [facility] WITH DIFF 2020-07-08 09:02:00 Shaikh [facility] BASIC METABOLIC PANEL (NA, 2020-07-08 09:02:00 [facility] K, CL, CO2, GLUCOSE, BUN, [facility] CREATININE, CA) MAGNESIUM 2020-07-08 09:02:00 Shaikh [facility] POCT GLUCOSE (AUTOMATED) 2020-07-08 09:02:00 Ricardo Cohen [facility] N-TERMINAL PRO-BNP 2020-07-08 09:02:00 Shaikh [facility] HEPATIC FUNCTION PANEL 2020-07-08 09:02:00 [id number] (ALB,T.PRO,BILI [facility] T,BU/BC,ALT,AST,ALK PHOS) ACTIVATED PARTIAL THRMPLAS 2020-07-08 05:19:00 [facility]OMATED) 2020-07-08 05:19:00 Ricardo Cohen [facility] ACTIVATED PARTIAL THRMPLAS 2020-07-08 05:19:00 [facility] PO[facility]SE (AUTOMATED) 2020-07-08 05:19:00 Ricardo Cohen [facility] POCT GLUCOSE (AUTOMATED) 2020-07-08 00:48:00 Ricardo Cohen [facility] POCT GLUCOSE (AUTOMATED) 2020-07-08 00:48:00 [facility] BASIC METABOLIC PANEL (NA, 2020-07-07 21:03:00 Wili, [facility] K, CL, CO2, GLUCOSE, BUN, [facility] CREATININE, CA) BASIC METABOLIC PANEL (NA, 2020-07-07 21:03:00 Wili, [facility] K, CL, CO2, GLUCOSE, BUN, [facility] CREATININE, CA) POCT GLUCOSE (AUTOMATED) 2020-07-07 20:41:00 Riacrdo Cohen [facility] POCT GLUCOSE (AUTOMATED) 2020-07-07 20:41:00 Ricardo Cohen [facility] ACTIVATED PARTIAL THRMPLAS 2020-07-07 17:08:00 [facility] ACTIVATED PARTIAL THRMPLAS 2020-07-07 17:08:00 [facility] PO[facility]SE (AUTOMATED) 2020-07-07 16:58:00 Ricardo Cohen [facility] POCT GLUCOSE (AUTOMATED) 2020-07-07 16:58:00 Ricardo Cohen [facility] XR KUB 2020-07-07 14:55:00 [facility] 2020-07-07 14:55:00 [facility] POCT GLUCOSE (AUTOMATED) 2020-07-07 12:36:00 Ricardo Cohen [facility] POCT GLUCOSE (AUTOMATED) 2020-07-07 12:36:00 Ricardo Cohen [facility] MAGNESIUM 2020-07-07 08:43:00 [facility] BASIC METABOLIC PANEL (NA, 2020-07-07 08:43:00 Wili, [facility] K, CL, CO2, GLUCOSE, BUN, [facility] CREATININE, CA) CBC WITH DIFF 2020-07-07 08:43:00 [facility] AC PANEL 20 + LACTIC ACID 2020-07-07 08:43:00 Alanna Avalos [facility] CBC WITH DIFF 2020-07-07 08:43:00 [facility] BASIC METABOLIC PANEL (NA, 2020-07-07 08:43:00 Murjoannan, U niversity [facility] K, CL, CO2, GLUCOSE, BUN, Vi Medica [facility] CREATININE, CA) MAGNESIUM 2020-07-07 08:43:[address] [facility] AC PANEL 20 + LACTIC ACID 2020-07-07 08:43:00 Alanna Avalos [facility] POCT GLUCOSE (AUTOMATED) 2020-07-07 08:40:00 OvRicardo king Uni [facility] POCT GLUCOSE (AUTOMATED) 2020-07-07 08:40:00 Ricardo Cohen Uni [facility] ACTIVATED PARTIAL THRMPLAS 2020-07-07 04:44:00 Alanna Avalos [facility] POCT GLUCOSE (AUTOMATED) 2020-07-07 04:44:00 OvRicardo king Uni [facility] ACTIVATED PARTIAL THRMPLAS 2020-07-07 04:44:00 [facility] POCT GLUCOSE (AUTOMATED) 2020-07-07 04:44:00 OvRicardo king Uni [facility] POCT GLUCOSE (AUTOMATED) 2020-07-07 00:47:00 Ricardo Cohen Uni [facility] POCT GLUCOSE (AUTOMATED) 2020-07-07 00:47:00 Ricardo Cohen Uni [facility] BASIC METABOLIC PANEL (NA, 2020-07-06 20:47:00 Muraleedharan, [facility] [place] K, CL, CO2, GLUCOSE, BUN, [facility] CREATININE, CA) POCT GLUCOSE (AUTOMATED) 2020-07-06 20:47:00 OvRicardo king Uni [facility] BASIC METABOLIC PANEL (NA, 2020-07-06 20:47:00 Muraleedharan, [facility] [place] K, CL, CO2, GLUCOSE, BUN, [facility] CREATININE, CA) POCT GLUCOSE (AUTOMATED) 2020-07-06 20:47:00 OvRicardo king Uni [facility] ACTIVATED PARTIAL THRMPLAS 2020-07-06 17:13:00 Alanna Avalos [facility] ACTIVATED PARTIAL THRMPLAS 2020-07-06 17:13:00 [facility] AC PANEL 21 + LACTIC ACID 2020-07-06 16:22:00 Alanna Avalos [facility] POCT GLUCOSE (AUTOMATED) 2020-07-06 16:06:00 [facility]) 2020-07-06 16:06:00 [facility] PO[facility]SE (AUTOMATED) 2020-07-06 12:33:00 Ricardo Cohen [facility] POCT GLUCOSE (AUTOMATED) 2020-07-06 12:33:00 Ricardo Cohen [employer] [facility] POCT GLUCOSE (AUTOMATED) 2020-07-06 09:13:00 Ricardo Cohen [employer] [facility] POCT GLUCOSE (AUTOMATED) 2020-07-06 09:13:00 Ricardo Cohen [employer] [facility] MAGNESIUM 2020-07-06 09:12:00 [facility] BASIC METABOLIC PANEL (NA, 2020-07-06 09:12:00 Murmackedrlan, [facility] [place] [facility], CL, CO2, GLUCOSE, BUN, [facility] CREATININE, CA) CBC WITH DIFF 2020-07-06 09:12:00 [facility] CBC WITH DIFF 2020-07-06 09:12:00 [facility] BASIC METABOLIC PANEL (NA, 2020-07-06 09:12:00 Murmackedrlan, [facility] K, CL, CO2, GLUCOSE, BUN, Vi [facility] CREATININE, CA) MAGNESIUM 2020-07-06 09:12:00 [facility] LACTIC ACID WHOLE BLOOD 2020-07-06 09:11:00 Alanna Avalos [facility] LACTIC ACID WHOLE BLOOD 2020-07-06 09:11:00 Alanna Avalos [facility] POCT GLUCOSE (AUTOMATED) 2020-07-06 05:19:00 Ricardo Cohen [facility] POCT GLUCOSE (AUTOMATED) 2020-07-06 05:19:00 Ricardo Cohen [facility] VANCOMYCIN RANDOM LEVEL 2020-07-06 05:16:00 Crandall, [facility] PROCALCITONIN 2020-07-06 05:16:00 Shaikh [facility] VANCOMYCIN RANDOM LEVEL 2020-07-06 05:16:00 Crandall, [facility] PROCALCITONIN 2020-07-06 05:16:00 Shaikh [facility] ACTIVATED PARTIAL THRMPLAS 2020-07-06 05:04:00 Shaikh [facility] ACTIVATED PARTIAL THRMPLAS 2020-07-06 05:04:00 Shaikh [facility] POCT GLUCOSE (AUTOMATED) 2020-07-06 00:36:00 Ricardo Cohen [facility] POCT GLUCOSE (AUTOMATED) 2020-07-06 00:36:00 Ricardo Cohen [facility] BASIC METABOLIC PANEL (NA, 2020-07-05 23:54:00 Muraleedharan, [facility], CL, CO2, GLUCOSE, BUN, [facility] CREATININE, CA) BASIC METABOLIC PANEL (NA, 2020-07-05 23:54:00 Muraleedharan, U [facility]iversity [facility] K, CL, CO2, GLUCOSE, BUN, [facility] CREATININE, CA) CT ABDOMEN PELVIS W 2020-07-05 22:41:52 Alanna Avalos [facility] CONTRAST [facility] CT HEAD W CONTRAST 2020-07-05 22:41:52 [facility] CHEST PULMONARY 2020-07-05 22:41:52 [facility] CT CHEST PULMONARY 2020-07-05 22:41:52 [facility] CT ABDOMEN PELVIS W 2020-07-05 22:41:52 Alanna Avalos [facility] CONTRAST [facility] CT HEAD W CONTRAST 2020-07-05 22:41:52 [facility] ACTIVATED PARTIAL THRMPLAS 2020-07-05 20:58:00 [facility] ACTIVATED PARTIAL THRMPLAS 2020-07-05 20:58:00 [facility] POCT GLUCOSE (AUTOMATED) 2020-07-05 20:40:00 Ricardo Cohen [facility] POCT GLUCOSE (AUTOMATED) 2020-07-05 20:40:00 Ricardo Cohen [facility] POCT GLUCOSE (AUTOMATED) 2020-07-05 16:51:00 Ricardo Cohen [facility] POCT GLUCOSE (AUTOMATED) 2020-07-05 16:51:00 Ricardo Cohen [facility] AC PANEL 20 + LACTIC ACID 2020-07-05 15:35:00 Alanna Avlaos [facility] AC PANEL 20 + LACTIC ACID 2020-07-05 15:35:00 Alanna Avalos [facility] SPUTUM CULTURE 2020-07-05 13:49:00 [facility] SPUTUM CULTURE 2020-07-05 13:49:00 [facility] AC PANEL 21 + LACTIC ACID 2020-07-05 13:39:00 Alanna Avalos [facility] AC PANEL 21 + LACTIC ACID 2020-07-05 13:39:00 Alanna Avalos [facility] POCT GLUCOSE (AUTOMATED) 2020-07-05 12:58:00 Ricardo Cohen [facility] POCT GLUCOSE (AUTOMATED) 2020-07-05 12:58:00 Ricardo Cohen [facility] XR KUB 2020-07-05 10:33:00 [facility] XR KUB 2020-07-05 10:33:00 [facility] ACTIVATED PARTIAL THRMPLAS 2020-07-05 09:10:00 [facility] ACTIVATED PARTIAL THRMPLAS 2020-07-05 09:10:00 [facility] POCT GLUCOSE (AUTOMATED) 2020-07-05 08:25:00 Ricardo Cohen [facility] POCT GLUCOSE (AUTOMATED) 2020-07-05 08:25:00 Ricardo Cohen [facility] MAGNESIUM 2020-07-05 08:17:00 [facility] BASIC METABOLIC PANEL (NA, 2020-07-05 08:17:00 Muraleedharan, [facility], CL, CO2, GLUCOSE, BUN, [facility] CREATININE, CA) CBC WITH DIFF 2020-07-05 08:17:00 [facility] LACTIC ACID WHOLE BLOOD 2020-07-05 08:17:00 [facility] CBC WITH DIFF 2020-07-05 08:17:00 Shaikh [facility] BASIC METABOLIC PANEL (NA, 2020-07-05 08:17:00 Muraleedharan, U [facility] K, CL, CO2, GLUCOSE, BUN, [facility] CREATININE, CA) LACTIC ACID WHOLE BLOOD 2020-07-05 08:17:00 Alanna Avalos [facility] MAGNESIUM 2020-07-05 08:17:00 [facility] POCT GLUCOSE (AUTOMATED) 2020-07-05 04:30:00 Ricardo Cohen [facility] POCT GLUCOSE (AUTOMATED) 2020-07-05 04:30:00 Ricardo Cohen [facility] VANCOMYCIN TROUGH 2020-07-05 04:28:00 Karley [facility] VANCOMYCIN TROUGH 2020-07-05 04:28:00 Crandall, [facility] XR ABDOMEN 1 VW 2020-07-05 03:13:31 Crandall, [facility] XR ABDOMEN 1 VW 2020-07-05 03:13:31 Crandall, [facility] POCT GLUCOSE (AUTOMATED) 2020-07-05 00:45:00 Ricardo Cohen [facility] POCT GLUCOSE (AUTOMATED) 2020-07-05 00:45:00 Ricardo Cohen [facility] BASIC METABOLIC PANEL (NA, 2020-07-04 21:20:00 Muraleedharan, [facility], CL, CO2, GLUCOSE, BUN, [facility] CREATININE, CA) BASIC METABOLIC PANEL (NA, 2020-07-04 21:20:00 Muraleedharan, [facility], CL, CO2, GLUCOSE, BUN, [facility] CREATININE, CA) ACTIVATED PARTIAL THRMPLAS 2020-07-04 21:18:00 Avalos [facility] ACTIVATED PARTIAL THRMPLAS 2020-07-04 21:18:00 Avalos [facility] POCT GLUCOSE (AUTOMATED) 2020-07-04 21:17:00 Ricardo Cohen [facility] POCT GLUCOSE (AUTOMATED) 2020-07-04 21:17:00 Ricardo Cohen [facility] TRANSESOPHAGEAL ECHO (VALE) 2020-07-04 18:20:00 Avalos [facility] COMPLETE W/ DOPPLER AND Medical Branch COLOR TRANSESOPHAGEAL ECHO (VALE) 2020-07-04 18:20:00 Avalos [facility] COMPLETE W/ DOPPLER AND [facility] Branch COLOR AC PANEL 21 + LACTIC ACID 2020-07-04 15:32:00 Pollo Ruiz [facility] AC PANEL 21 + LACTIC ACID 2020-07-04 15:32:00 Pollo Ruiz [facility] XR CHEST 1 VW 2020-07-04 12:28:[address] [facility] XR CHEST 1 VW 2020-07-04 12:28:[address] [facility] MAGNESIUM 2020-07-04 09:06:00 [facility] BASIC METABOLIC PANEL (NA, 2020-07-04 09:06:00 Murclaude, [facility] K, CL, CO2, GLUCOSE, BUN, Vi [facility] CREATININE, CA) CBC WITH DIFF 2020-07-04 09:06:00 Shaikh [facility] CBC WITH DIFF 2020-07-04 09:06:00 Shaikh [facility] BASIC METABOLIC PANEL (NA, 2020-07-04 09:06:00 Murclaude, U [facility] K, CL, CO2, GLUCOSE, BUN, Vi [facility] CREATININE, CA) MAGNESIUM 2020-07-04 09:06:00 [facility] POCT GLUCOSE (AUTOMATED) 2020-07-04 09:04:00 Ricardo Cohen Uni [facility] POCT GLUCOSE (AUTOMATED) 2020-07-04 09:04:00 Ricardo Cohen Uni [facility] ACTIVATED PARTIAL THRMPLAS 2020-07-04 08:55:00 [facility] ACTIVATED PARTIAL THRMPLAS 2020-07-04 08:55:00 [facility] PO[facility] GLUCOSE (AUTOMATED) 2020-07-04 06:01:00 O[facility]Ricardo king [facility]SE ([facility]OMATED) 2020-07-04 06:01:00 Ricardo Cohen [facility] PO[facility]UCOSE (AUTOMATED) 2020-07-04 02:15:00 OvRicardo king [facility] PO[facility]SE (AUTOMATED) 2020-07-04 02:15:00 Ricardo Cohen Uni [facility] BASIC METABOLIC PANEL (NA, 2020-07-03 21:41:00 [facility], CO2, GLUCOSE, BUN, Vi [facility] Branch CREATININE, CA) ACTIVATED PARTIAL THRMPLAS 2020-07-03 21:41:00 [facility] BASIC METABOLIC PANEL (NA, 2020-07-03 21:41:00 Wili, [facility], CL, CO2, GLUCOSE, BUN, Vi [facility] CREATININE, CA) ACTIVATED PARTIAL THRMPLAS 2020-07-03 21:41:00 [facility] POCT GLUCOSE (AUTOMATED) 2020-07-03 21:27:00 Ricardo Cohen [facility] POCT GLUCOSE (AUTOMATED) 2020-07-03 21:27:00 Ricardo Cohen [facility] POCT GLUCOSE (AUTOMATED) 2020-07-03 16:03:00 Ricardo Cohen [facility] POCT GLUCOSE (AUTOMATED) 2020-07-03 16:03:00 Ricardo Cohen [facility] AC PANEL 21 + LACTIC ACID 2020-07-03 13:29:00 Alanna Avalos [facility] AC PANEL 21 + LACTIC ACID 2020-07-03 13:29:00 Alanna Avalos [facility] POCT GLUCOSE (AUTOMATED) 2020-07-03 12:23:00 Ricardo Cohen [facility] POCT GLUCOSE (AUTOMATED) 2020-07-03 12:23:00 Ricardo Cohen [facility] ACTIVATED PARTIAL THRMPLAS 2020-07-03 11:14:00 Wili, [facility] ACTIVATED PARTIAL THRMPLAS 2020-07-03 11:14:00 [facility] 2020-07-03 08:44:00 [facility] BASIC METABOLIC PANEL (NA, 2020-07-03 08:44:00 Wili, [facility] K, CL, CO2, GLUCOSE, BUN, Vi [facility] CREATININE, CA) CBC WITH DIFF 2020-07-03 08:44:00 [facility] CBC WITH DIFF 2020-07-03 08:44:00 [facility] BASIC METABOLIC PANEL (NA, 2020-07-03 08:44:00 Wili [facility] K, CL, CO2, GLUCOSE, BUN, Vi Medica [facility] [place] CREATININE, CA) MAGNESIUM 2020-07-03 08:44:00 [facility] POCT GLUCOSE (AUTOMATED) 2020-07-03 08:39:00 Ricardo Cohen [facility] POCT GLUCOSE (AUTOMATED) 2020-07-03 08:39:00 Ricardo Cohen [facility] AC PANEL 20 + LACTIC ACID 2020-07-03 08:25:00 Alanna Avalos [facility] AC PANEL 20 + LACTIC ACID 2020-07-03 08:25:00 Alanna Avalos [facility] ACTIVATED PARTIAL THRMPLAS 2020-07-03 05:15:00 [facility] ACTIVATED PARTIAL THRMPLAS 2020-07-03 05:15:00 [facility] POCT GLUCOSE (AUTOMATED) 2020-07-03 05:08:00 Ricardo Cohen [facility] POCT GLUCOSE (AUTOMATED) 2020-07-03 05:08:00 Ricardo Cohen [facility] POCT GLUCOSE (AUTOMATED) 2020-07-03 00:54:00 Ricardo Cohen [facility] POCT GLUCOSE (AUTOMATED) 2020-07-03 00:54:00 Ricardo Cohen [facility] AC PANEL 20 + LACTIC ACID 2020-07-02 22:17:00 Alanna Avalos [facility] AC PANEL 20 + LACTIC ACID 2020-07-02 22:17:00 Alanna Avalos [facility] BASIC METABOLIC PANEL (NA, 2020-07-02 22:10:00 Murjoannan, [facility], CL, CO2, GLUCOSE, BUN, Vi [facility] CREATININE, CA) BASIC METABOLIC PANEL (NA, 2020-07-02 22:10:00 Muraleedrlan, U [facility]iversity [facility] K, CL, CO2, GLUCOSE, BUN, [facility] CREATININE, CA) POCT GLUCOSE (AUTOMATED) 2020-07-02 21:20:00 Ricardo Cohen [facility] POCT GLUCOSE (AUTOMATED) 2020-07-02 21:20:00 Ricardo Cohen [facility] ACTIVATED PARTIAL THRMPLAS 2020-07-02 17:38:00 [facility] ACTIVATED PARTIAL THRMPLAS 2020-07-02 17:38:00 [facility] AC PANEL 20 + LACTIC ACID 2020-07-02 16:36:00 Alanna Avalos [facility] AC PANEL 20 + LACTIC ACID 2020-07-02 16:36:00 Alanna Avalos [facility] AC PANEL 21 + LACTIC ACID 2020-07-02 15:55:00 Alanna Avalos [facility] AC PANEL 21 + LACTIC ACID 2020-07-02 15:55:00 Alanna Avalos [facility] POCT GLUCOSE (AUTOMATED) 2020-07-02 15:54:00 Ricardo Cohen [facility] POCT GLUCOSE (AUTOMATED) 2020-07-02 15:54:00 Ricardo Cohen [facility] AC PANEL 21 + LACTIC ACID 2020-07-02 13:16:00 [facility] PANEL 21 + LACTIC ACID 2020-07-02 13:16:00 Alanna Avalos [facility] POCT GLUCOSE (AUTOMATED) 2020-07-02 13:08:00 Ricardo Cohen [facility] POCT GLUCOSE (AUTOMATED) 2020-07-02 13:08:00 Ricardo Cohen [facility] ACTIVATED PARTIAL THRMPLAS 2020-07-02 11:16:00 [facility] ACTIVATED PARTIAL THRMPLAS 2020-07-02 11:16:00 [facility] MAGNESIUM 2020-07-02 09:19:00 Shaikh [facility] BASIC METABOLIC PANEL (NA, 2020-07-02 09:19:00 [facility]aleedharan, [facility] [place] [facility], CL, CO2, GLUCOSE, BUN, [facility] CREATININE, CA) CBC WITH DIFF 2020-07-02 09:19:00 [facility] LACTIC ACID WHOLE BLOOD 2020-07-02 09:19:00 [facility] AC PANEL 21 + LACTIC ACID 2020-07-02 09:19:00 Crandall, Hay Un [facility] AC PANEL 21 + LACTIC ACID 2020-07-02 09:19:00 Crandall, Hay Un [facility] CBC WITH DIFF 2020-07-02 09:19:00 [facility] BASIC METABOLIC PANEL (NA, 2020-07-02 09:19:00 Muraleedrlan, [facility] [place] K, CL, CO2, GLUCOSE, BUN, Vi [facility] CREATININE, CA) LACTIC ACID WHOLE BLOOD 2020-07-02 09:19:00 Alanna Avalos [facility] MAGNESIUM 2020-07-02 09:19:00 [facility] POCT GLUCOSE (AUTOMATED) 2020-07-02 09:18:00 Ricardo Cohen [facility] POCT GLUCOSE (AUTOMATED) 2020-07-02 09:18:00 Ricardo Cohen [facility] POCT GLUCOSE (AUTOMATED) 2020-07-02 07:23:00 Ricardo Cohen [facility] POCT GLUCOSE (AUTOMATED) 2020-07-02 07:23:00 Ricardo Cohen [facility] VANCOMYCIN TROUGH 2020-07-02 04:16:00 [facility] THRMPLAS 2020-07-02 04:16:00 [facility] VANCOMYCIN TROUGH 2020-07-02 04:16:00 [facility]IV[facility] PART[facility] THRMPLAS 2020-07-02 04:16:00 [facility] (AUTOMATED) 2020-07-01 23:48:00 Ricardo Cohen [facility] POCT GLUCOSE (AUTOMATED) 2020-07-01 23:48:00 Ricardo Cohen [facility] XR CHEST 1 VW 2020-07-01 22:04:00 Shaikh [facility] XR CHEST 1 VW 2020-07-01 22:04:00 [facility] BASIC METABOLIC PANEL (NA, 2020-07-01 21:39:00 [facility]leg[facility] centeredhar[facility], [facility] K, CL, CO2, GLUCOSE, BUN, [facility] CREATININE, CA) BASIC METABOLIC PANEL (NA, 2020-07-01 21:39:00 Murlegacy [facility] centeredrlan, [facility] K, CL, CO2, GLUCOSE, BUN, [facility] CREATININE, CA) CBC WITHOUT DIFF 2020-07-01 21:38:00 [facility] CBC WITHOUT DIFF 2020-07-01 21:38:00 [facility] POCT GLUCOSE (AUTOMATED) 2020-07-01 21:35:00 Ricardo Cohen [facility] POCT GLUCOSE (AUTOMATED) 2020-07-01 21:35:00 Ricardo Cohen [facility] AC PANEL 21 + LACTIC ACID 2020-07-01 16:25:00 Alanna Avalos [facility] AC PANEL 21 + LACTIC ACID 2020-07-01 16:25:00 Alanna Avalos [facility] PROTHROMBIN TIME / INR 2020-07-01 16:24:00 [facility] ACTIV[facility] PARTIAL THRMPLAS 2020-07-01 16:24:00 [facility] / INR 2020-07-01 16:24:00 [facility] ACTIVATED PARTIAL THRMPLAS 2020-07-01 16:24:00 Shaikh [facility] POCT GLUCOSE (AUTOMATED) 2020-07-01 16:21:00 Ricardo Cohen [facility] POCT GLUCOSE (AUTOMATED) 2020-07-01 16:21:00 Ricardo Cohen [facility] PREPARE PACKED RBC 2020-07-01 16:13:23 [facility] PREPARE PACK[facility] RBC 2020-07-01 16:13:23 [facility] AC PANEL 21 + LACTIC ACID 2020-07-01 14:36:00 Alanna Avalos [facility] AC PANEL 21 + LACTIC ACID 2020-07-01 14:36:00 Alanna Avalos [facility] ABORH CONFIRMATION 2020-07-01 14:00:00 Alanna Avalos [facility] ABORH CONFIRMATION 2020-07-01 14:00:00 Alanna Avalos [facility] POCT GLUCOSE (AUTOMATED) 2020-07-01 13:22:00 Ricardo Cohen [facility] POCT GLUCOSE (AUTOMATED) 2020-07-01 13:22:00 Riacrdo Cohen [facility] HB ABO GROUPING 2020-07-01 12:45:00 Shaikh [facility] HB ABO GROUPING 2020-07-01 12:45:00 [facility] PO[facility]SE (AUTOMATED) 2020-07-01 11:21:00 Ricardo Cohen [facility] POCT GLUCOSE (AUTOMATED) 2020-07-01 11:21:00 Ricardo Cohen [facility] POCT GLUCOSE (AUTOMATED) 2020-07-01 05:17:00 Ricardo Cohen [facility] POCT GLUCOSE (AUTOMATED) 2020-07-01 05:17:00 Ricardo Cohen [facility] MAGNESIUM 2020-07-01 05:13:00 [facility] BASIC METABOLIC PANEL (NA, 2020-07-01 05:13:00 Muraleedharan, [facility] [place] K, CL, CO2, GLUCOSE, BUN, [facility] CREATININE, CA) CBC WITH DIFF 2020-07-01 05:13:00 [facility] ACTIVATED PARTIAL THRMPLAS 2020-07-01 05:13:00 [facility] ACTIVATED PARTIAL THRMPLAS 2020-07-01 05:13:00 Shaikh [facility] CBC WITH DIFF 2020-07-01 05:13:00 Shaikh [facility] BASIC METABOLIC PANEL (NA, 2020-07-01 05:13:00 Muraleedharan, [facility] [place] K, CL, CO2, GLUCOSE, BUN, [facility] CREATININE, CA) MAGNESIUM 2020-07-01 05:13:00 [facility] POCT GLUCOSE (AUTOMATED) 2020-06-30 22:01:00 Ricardo Cohen [facility] POCT GLUCOSE (AUTOMATED) 2020-06-30 22:01:00 Ricardo Cohen [facility] BASIC METABOLIC PANEL (NA, 2020-06-30 19:59:00 Muraleedharan, [employer] [place] K, CL, CO2, GLUCOSE, BUN, [facility] CREATININE, CA) ACTIVATED PARTIAL THRMPLAS 2020-06-30 19:59:00 [facility] (NA, 2020-06-30 19:59:00 Shea Rasheed [facility] K, CL, CO2, GLUCOSE, BUN, [facility] CREATININE, CA) ACTIVATED PARTIAL THRMPLAS 2020-06-30 19:59:00 [facility] 2020-06-30 16:54:00 [facility] 2020-06-30 16:54:00 [facility] BLOOD C[facility] SCREEN 2020-06-30 16:49:00 [facility] BLOOD CULTURE SCREEN 2020-06-30 16:49:00 [facility] AC PANEL 21 + LACTIC ACID 2020-06-30 16:03:00 Alanna Avalos [facility] AC PANEL 21 + LACTIC ACID 2020-06-30 16:03:00 Alanna Avalos [facility] HB ECG ROUTINE & RHYTHM 2020-06-30 14:24:50 Alanna Avalos [facility] HB ECG ROUTINE & RHYTHM 2020-06-30 14:24:50 [facility] 2020-06-30 13:34:00 [facility] 2020-06-30 13:34:00 [facility] URINE CULTURE 2020-06-30 13:34:00 [facility] N-TERMINAL PRO-BNP 2020-06-30 13:34:00 Alanna Avalos [facility] URINALYSIS 2020-06-30 13:34:00 [facility] URINE C[facility]URE 2020-06-30 13:34:00 Shaikh [facility] TROPONIN I 2020-06-30 13:34:00 Shaikh [facility] N-TERMINAL PRO-BNP 2020-06-30 13:34:00 Alanna Avalos [facility] POCT GLUCOSE (AUTOMATED) 2020-06-30 13:32:00 Ricardo Cohen [facility] POCT GLUCOSE (AUTOMATED) 2020-06-30 13:32:00 Ricardo Cohen [facility] XR CHEST 1 VW 2020-06-30 12:48:00 Shaikh [facility] XR CHEST 1 VW 2020-06-30 12:48:00 Shaikh [facility] SPUTUM CULTURE 2020-06-30 12:40:00 Shaikh [facility] SPUTUM CULTURE 2020-06-30 12:40:00 Shaikh [facility] POCT GLUCOSE (AUTOMATED) 2020-06-30 08:53:00 Ricardo Cohen [facility] POCT GLUCOSE (AUTOMATED) 2020-06-30 08:53:00 Ricardo Cohen [facility] MAGNESIUM 2020-06-30 05:49:00 Shaikh [facility] TROPONIN I 2020-06-30 05:49:00 Shaikh [facility] BASIC METABOLIC PANEL (NA, 2020-06-30 05:49:00 [facility]claude, [facility] [place] [facility], CL, CO2, GLUCOSE, BUN, Vi Medica l Branch CREATININE, CA) CBC WITH DIFF 2020-06-30 05:49:00 Shaikh [facility] ACTIVATED PARTIAL THRMPLAS 2020-06-30 05:49:00 Shaikh [facility] CBC WITH DIFF 2020-06-30 05:49:00 Shaikh [facility] BASIC METABOLIC PANEL (NA, 2020-06-30 05:49:00 Murjoannan, [facility] K, CL, CO2, GLUCOSE, BUN, Vi Medica l Branch CREATININE, CA) MAGNESIUM 2020-06-30 05:49:00 [facility] ACTIVATED PARTIAL THRMPLAS 2020-06-30 05:49:00 [facility]IN [facility] 2020-06-30 05:49:00 [facility] LACTIC ACID WHOLE BLOOD 2020-06-30 05:48:00 [facility] LACTIC ACID WHOLE BLOOD 2020-06-30 05:48:00 Alanna Avalos [facility] POCT GLUCOSE (AUTOMATED) 2020-06-30 05:47:00 Ricardo Cohen [facility] POCT GLUCOSE (AUTOMATED) 2020-06-30 05:47:00 Ricardo Cohen [facility] POCT GLUCOSE (AUTOMATED) 2020-06-30 01:15:00 Ricardo Cohen [facility] POCT GLUCOSE (AUTOMATED) 2020-06-30 01:15:00 Ricardo Cohen [facility] MAGNESIUM 2020-06-29 21:00:00 Glenda [facility] TROPONIN I 2020-06-29 21:00:00 Glenda [facility] BASIC METABOLIC PANEL (NA, 2020-06-29 21:00:00 [facility], CO2, GLUCOSE, BUN, Medica l Branch CREATININE, CA) BASIC METABOLIC PANEL (NA, 2020-06-29 21:00:00 [facility], CL, CO2, GLUCOSE, BUN, Medica l Branch CREATININE, CA) MAGNESIUM 2020-06-29 21:00:00 Glenda [facility] TROPONIN I 2020-06-29 21:00:00 Glenda [facility] AC PANEL 20 + LACTIC ACID 2020-06-29 20:57:00 Glenda [facility] AC PANEL 20 + LACTIC ACID 2020-06-29 20:57:[address] [facility] HB ECG ROUTINE & RHYTHM 2020-06-29 20:54:00 Ej Doshi Un [facility] HB ECG ROUTINE & RHYTHM 2020-06-29 20:54:00 Ej Doshi [facility] POCT GLUCOSE (AUTOMATED) 2020-06-29 19:55:00 Ricardo Cohen Uni [facility] POCT GLUCOSE (AUTOMATED) 2020-06-29 19:55:00 Ricardo Cohen [facility] MAGNESIUM 2020-06-29 17:30:00 Shaikh [facility] BASIC METABOLIC PANEL (NA, 2020-06-29 17:30:00 [facility] K, CL, CO2, GLUCOSE, BUN, Vi Medica l Branch CREATININE, CA) ACTIVATED PARTIAL THRMPLAS 2020-06-29 17:30:00 [facility] BASIC METABOLIC PANEL (NA, 2020-06-29 17:30:00 Muraleedrlan, [facility] K, CL, CO2, GLUCOSE, BUN, Vi Medica l Branch CREATININE, CA) ACTIVATED PARTIAL THRMPLAS 2020-06-29 17:30:00 [facility] MAGNESIUM 2020-06-29 17:30:00 [facility] POCT GLUCOSE (AUTOMATED) 2020-06-29 12:43:00 Ricardo Cohen [facility] POCT GLUCOSE (AUTOMATED) 2020-06-29 12:43:00 Ricardo Cohen [facility] XR CHEST 1 VW 2020-06-29 12:36:00 [facility] XR CHEST 1 VW 2020-06-29 12:36:00 [facility] POCT GLUCOSE (AUTOMATED) 2020-06-29 09:28:00 Ricardo Cohen [facility] POCT GLUCOSE (AUTOMATED) 2020-06-29 09:28:00 Ricardo Cohen [facility] ABDOMEN LIMITED 2020-06-29 07:09:47 Crandall [facility] ABDOMEN LIMITED 2020-06-29 07:09:47 [facility] LACTATE DEHYDROGENASE 2020-06-29 05:35:00 Alanna Avalos [facility] C-REACTIVE PROTEIN 2020-06-29 05:35:00 [facility] BASIC METABOLIC PANEL (NA, 2020-06-29 05:35:00 Muraleedharan, [facility] K, CL, CO2, GLUCOSE, BUN, Vi Medica l [place] CREATININE, CA) CBC WITH DIFF 2020-06-29 05:35:00 [facility] ACTIVATED PARTIAL THRMPLAS 2020-06-29 05:35:00 [facility] N-TERMINAL PRO-BNP 2020-06-29 05:35:00 [facility] QUANTIFERON-TB ASSAY 2020-06-29 05:35:00 [facility] LACT[facility] ACID WHOLE BLOOD 2020-06-29 05:35:00 Alanna Avalos [facility] C-REACTIVE PROTEIN 2020-06-29 05:35:00 [facility] CBC WITH DIFF 2020-06-29 05:35:00 Shaikh [facility] BASIC METABOLIC PANEL (NA, 2020-06-29 05:35:00 Muraleedharan, [facility] K, CL, CO2, GLUCOSE, BUN, Vi Medica [facility] [place] CREATININE, CA) LACTIC ACID WHOLE BLOOD 2020-06-29 05:35:00 Alanna Avalos [facility] LACTATE DEHYDROGENASE 2020-06-29 05:35:00 Alanna Avalos [facility] ACTIVATED PARTIAL THRMPLAS 2020-06-29 05:35:00 [facility] QUANTIFERON-TB ASSAY 2020-06-29 05:35:00 Vince Jean [facility] N-TERMINAL PRO-BNP 2020-06-29 05:35:00 Alanna Avalos [facility] POCT GLUCOSE (AUTOMATED) 2020-06-29 05:11:00 Ricardo Cohen [facility] POCT GLUCOSE (AUTOMATED) 2020-06-29 05:11:00 [facility] ([facility]OMATED) 2020-06-28 20:41:00 Noel [facility] POCT GLUCOSE (AUTOMATED) 2020-06-28 20:41:00 [facility] HEPATIC FUNCTION PANEL 2020-06-28 18:33:00 Shaikh [facility] ([id number]) (ALB,T.PRO,[facility] T,BU/BC,ALT,AST,ALK PHOS) BASIC METABOLIC PANEL (NA, 2020-06-28 18:33:00 [facility] K, CL, CO2, GLUCOSE, BUN, Vi Medica l Branch CREATININE, CA) ACTIVATED PARTIAL THRMPLAS 2020-06-28 18:33:00 [facility] HIV 1/2 AG-AB WITH REFLEX 2020-06-28 18:33:00 Alanna Avalos [facility] BASIC METABOLIC PANEL (NA, 2020-06-28 18:33:00 [facility], CL, CO2, GLUCOSE, BUN, Vi Medica l Branch CREATININE, CA) ACTIVATED PARTIAL THRMPLAS 2020-06-28 18:33:00 Shaikh [facility] HEPATIC FUNCTION PANEL 2020-06-28 18:33:00 Avalos [facility] ([id number]) (ALB,T.PRO,[facility] T,BU/BC,ALT,AST,ALK PHOS) HIV 1/2 AG-AB WITH REFLEX 2020-06-28 18:33:00 Alanna Avalos [facility] POCT GLUCOSE (AUTOMATED) 2020-06-28 16:46:00 Ricardo Cohen [facility] POCT GLUCOSE (AUTOMATED) 2020-06-28 16:46:00 OvRicardo king [facility] POCT GLUCOSE (AUTOMATED) 2020-06-28 12:34:00 OvRicardo king Uni [facility] POCT GLUCOSE (AUTOMATED) 2020-06-28 12:34:00 [facility] POCT GLUCOSE (AUTOMATED) 2020-06-28 09:22:00 Ricardo Cohen [facility] POCT GLUCOSE (AUTOMATED) 2020-06-28 09:22:00 Ricardo Cohen [facility] COVID-19 (MOLECULAR 2020-06-28 07:34:00 [facility] NUCLEIC ACID AMPLIFICATION) LAB ONLY COVID 2020-06-28 07:34:00 [facility] COVID-19 (MOLECULAR 2020-06-28 07:34:00 [facility] NUCLEIC ACID AMPLIFICATION) LAB ONLY COVID 2020-06-28 07:34:00 [facility] MAGNESIUM 2020-06-28 07:11:[address] [facility] BASIC METABOLIC PANEL (NA, 2020-06-28 07:11:00 Shea Rasheed [facility] K, CL, CO2, GLUCOSE, BUN, Vi Medica l Branch CREATININE, CA) SEDIMENTATION RATE 2020-06-28 07:11:00 Alanna Avalos [facility] CBC WITH DIFF 2020-06-28 07:11:00 [facility] LACTIC ACID WHOLE BLOOD 2020-06-28 07:11:00 Alanna Avalos [facility] CBC WITH DIFF 2020-06-28 07:11:00 [facility] BASIC METABOLIC PANEL (NA, 2020-06-28 07:11:00 Shea Rasheed [facility] K, CL, CO2, GLUCOSE, BUN, Vi Medica l Branch CREATININE, CA) LACTIC ACID WHOLE BLOOD 2020-06-28 07:11:00 Alanna Avalos [facility] MAGNESIUM 2020-06-28 07:11:00 [facility] f [facility] SEDIMENTATION RATE 2020-06-28 07:11:00 Shaikh [facility] ACTIVATED PARTIAL THRMPLAS 2020-06-28 06:01:00 Shaikh [facility] ACTIVATED PARTIAL THRMPLAS 2020-06-28 06:01:00 Shaikh [facility] POCT GLUCOSE (AUTOMATED) 2020-06-28 06:00:00 Ricardo Cohen [facility] POCT GLUCOSE (AUTOMATED) 2020-06-28 06:00:00 Ricardo Cohen [facility] AC PANEL 20 + LACTIC ACID 2020-06-28 02:57:00 Crandall, [facility] AC PANEL 20 + LACTIC ACID 2020-06-28 02:57:00 [facility]EL 21 + LACTIC ACID 2020-06-28 02:53:00 [facility] AC PANEL 21 + LACTIC ACID 2020-06-28 02:53:00 Crandall, [facility] HB ECG ROUTINE & RHYTHM 2020-06-28 02:24:[address] [facility] STRIP [facility] HB ECG ROUTINE & RHYTHM 2020-06-28 02:24:[address] [facility] STRIP [facility] POCT GLUCOSE (AUTOMATED) 2020-06-28 02:01:00 Ricardo Cohen [facility] POCT GLUCOSE (AUTOMATED) 2020-06-28 02:01:00 Ricardo Cohen [facility] POCT GLUCOSE (AUTOMATED) 2020-06-27 22:33:00 Ricardo Cohen [facility] POCT GLUCOSE (AUTOMATED) 2020-06-27 22:33:00 Ricardo Cohen [facility] URINE CULTURE 2020-06-27 20:36:[address] [facility] URINE CULTURE 2020-06-27 20:36:[address] [facility] MAGNESIUM 2020-06-27 [facility]:17[facility] PANEL (NA, 2020-06-27 19:17:00 Wili, [facility] K, CL, CO2, GLUCOSE, BUN, Vi [facility] [place] CREATININE, CA) VANCOMYCIN RANDOM LEVEL 2020-06-27 19:17:00 Pollo Ruiz [facility] MAGNESIUM 2020-06-27 19:17:00 [facility] BASIC MET[facility]OLIC PANEL (NA, 2020-06-27 19:17:00 Wili, [facility] K, CL, CO2, GLUCOSE, BUN, Vi [facility] [place] CREATININE, CA) VANCOMYCIN RANDOM LEVEL 2020-06-27 19:17:00 Pollo Ruiz [facility] ACTIVATED PARTIAL THRMPLAS 2020-06-27 18:35:00 [facility] ACTIVATED PARTIAL THRMPLAS 2020-06-27 18:35:00 Shaikh [facility] POCT GLUCOSE (AUTOMATED) 2020-06-27 18:15:00 Ricardo Cohen [facility] POCT GLUCOSE (AUTOMATED) 2020-06-27 18:15:00 Ricardo Cohen [facility] AC PANEL 20 + LACTIC ACID 2020-06-27 18:10:00 Pollo Ruiz [facility] AC PANEL 20 + LACTIC ACID 2020-06-27 18:10:00 Pollo Ruiz [facility] CBC WITH DIFF 2020-06-27 14:17:[address] [facility] CBC WITH DIFF 2020-06-27 14:17:[address] [facility] BLOOD CULTURE SCREEN 2020-06-27 14:16:00 Pollo Ruiz [facility] BLOOD CULTURE SCREEN 2020-06-27 14:16:00 Pollo Ruiz [facility] SPUTUM CULTURE 2020-06-27 12:56:[address] [facility] SPUTUM CULTURE 2020-06-27 12:56:[address] [facility] XR CHEST 1 VW 2020-06-27 12:53:[address] [facility] XR CHEST 1 VW 2020-06-27 12:53:[address] [facility] POCT GLUCOSE (AUTOMATED) 2020-06-27 12:49:00 Ricardo Cohen [facility] POCT GLUCOSE (AUTOMATED) 2020-06-27 12:49:00 Ricardo Cohen [facility] POCT GLUCOSE (AUTOMATED) 2020-06-27 08:48:00 Ricardo Cohen [facility] POCT GLUCOSE (AUTOMATED) 2020-06-27 08:48:00 Ricardo Cohen [facility] MAGNESIUM 2020-06-27 08:46:00 Surya Rasheed [facility] BASIC METABOLIC PANEL (NA, 2020-06-27 08:46:00 Shea Rasheed [facility] K, CL, CO2, GLUCOSE, BUN, Vi Medica l Branch CREATININE, CA) CBC WITH DIFF 2020-06-27 08:46:00 [facility] CBC WITH DIFF 2020-06-27 08:46:00 [facility] MAGNESIUM 2020-06-27 08:46:00 Wili Tyronza o [facility] BASIC METABOLIC PANEL (NA, 2020-06-27 08:46:00 Shea Rasheed [facility] K, CL, CO2, GLUCOSE, BUN, Vi Medica Branch CREATININE, CA) LACTIC ACID WHOLE BLOOD 2020-06-27 08:44:00 [facility] LACTIC ACID WHOLE BLOOD 2020-06-27 08:44:00 [facility] ACTIVATED PARTIAL THRMPLAS 2020-06-27 05:00:00 Shaikh [facility] POCT GLUCOSE (AUTOMATED) 2020-06-27 05:00:00 Ricardo Cohen [facility] ACTIVATED PARTIAL THRMPLAS 2020-06-27 05:00:00 [facility] POCT GLUCOSE (AUTOMATED) 2020-06-27 05:00:00 Ricardo Cohen [facility] URINALYSIS 2020-06-27 03:21:[address] [facility] CREATININE, URINE RANDOM 2020-06-27 03:21:00 Crandall, [facility] SODIUM, URINE RANDOM 2020-06-27 03:21:00 Crandall, [facility] SODIUM, URINE RANDOM 2020-06-27 03:21:00 Crandall, [facility] CREATININE, URINE RANDOM 2020-06-27 03:21:00 Crandall, [facility] URINALYSIS 2020-06-27 03:21:[address] [facility] POCT GLUCOSE (AUTOMATED) 2020-06-27 01:32:00 Ricardo Cohen [facility] POCT GLUCOSE (AUTOMATED) 2020-06-27 01:32:00 Ricardo Cohen [facility] MAGNESIUM 2020-06-26 20:19:00 Wili Tyronza o [facility] BASIC METABOLIC PANEL (NA, 2020-06-26 20:19:00 [facility], [facility], CO2, GLUCOSE, BUN, Vi Medica l Branch CREATININE, CA) MAGNESIUM 2020-06-26 20:19:00 [facility] BASIC METABOLIC PANEL (NA, 2020-06-26 20:19:00 Wili, [facility], CL, CO2, GLUCOSE, BUN, Vi Medica l Branch CREATININE, CA) ACTIVATED PARTIAL THRMPLAS 2020-06-26 17:39:00 [facility] ACTIVATED PARTIAL THRMPLAS 2020-06-26 17:39:00 [facility] TRANSTHORACIC ECHO (TTE) 2020-06-26 16:25:00 Alanna Avalos [facility] [place] LIMITED W/ DOPPLER, COLOR Medica l Branch AND CONTRAST TRANSTHORACIC ECHO (TTE) 2020-06-26 16:25:00 Alanna Avalos [facility] LIMITED W/ DOPPLER, COLOR Medica l Branch AND CONTRAST POCT GLUCOSE (AUTOMATED) 2020-06-26 16:14:00 [facility] ([facility]OMATED) 2020-06-26 16:14:00 Ricardo Cohen Uni versity [facility] POCT GLUCOSE (AUTOMATED) 2020-06-26 13:04:00 Ricardo Cohen [facility] PO[facility] GLUCOSE (AUTOMATED) 2020-06-26 13:04:00 Ricardo Cohen Uni versity [facility] POCT GLUCOSE (AUTOMATED) 2020-06-26 09:23:00 Ricardo Cohen [facility] PO[facility] GLUCOSE (AUTOMATED) 2020-06-26 09:23:00 Ricardo Cohen versity [facility] MAGNESIUM 2020-06-26 09:14:00 Wili Tyronza o [facility] BASIC METABOLIC PANEL (NA, 2020-06-26 09:14:00 Wili, [facility] K, CL, CO2, GLUCOSE, BUN, Vi Medica l Branch CREATININE, CA) CBC WITH DIFF 2020-06-26 09:14:[address] [facility] LACTIC ACID WHOLE BLOOD 2020-06-26 09:14:00 Alanna Avalos [facility] CBC WITH DIFF 2020-06-26 09:14:00 [facility] MAGNESIUM 2020-06-26 09:14:00 [facility]IC [facility]IC PANEL (NA, 2020-06-26 09:14:00 Murmackedrlan, [facility] [place] K, CL, CO2, GLUCOSE, BUN, Vi Medica [facility] CREATININE, CA) LACTIC ACID WHOLE BLOOD 2020-06-26 09:14:00 Alanna Avalos [facility] ACTIVATED PARTIAL THRMPLAS 2020-06-26 04:48:00 Wili [facility] ACTIVATED PARTIAL THRMPLAS 2020-06-26 04:48:00 Murclaude, [facility] POCT GLUCOSE (AUTOMATED) 2020-06-26 04:47:00 Ricardo Cohen [facility] POCT GLUCOSE (AUTOMATED) 2020-06-26 04:47:00 Ricardo Cohen [facility] POCT GLUCOSE (AUTOMATED) 2020-06-26 00:31:00 Ricardo Cohen [facility] POCT GLUCOSE (AUTOMATED) 2020-06-26 00:31:00 Ricardo Cohen [facility] MAGNESIUM 2020-06-25 23:59:00 [facility]IC [facility]OLIC PANEL (NA, 2020-06-25 23:59:00 Murmackedrlan, [facility] [place] K, CL, CO2, GLUCOSE, BUN, Vi Medica l Branch CREATININE, CA) MAGNESIUM 2020-06-25 23:59:00 [facility] BASIC MET[facility]OLIC PANEL (NA, 2020-06-25 23:59:00 [facility], CL, CO2, GLUCOSE, BUN, Vi Medica l Branch CREATININE, CA) POCT GLUCOSE (AUTOMATED) 2020-06-25 20:52:00 Ricardo Cohen [facility] PO[facility]UCOSE (AUTOMATED) 2020-06-25 20:52:00 Ricardo Cohen [facility] XR CHEST 1 VW 2020-06-25 17:25:00 Shaikh [facility] XR CHEST 1 VW 2020-06-25 17:25:00 Shaikh [facility] POCT GLUCOSE (AUTOMATED) 2020-06-25 16:32:00 Ricardo Cohen Uni [facility] POCT GLUCOSE (AUTOMATED) 2020-06-25 16:32:00 Ricardo Cohen Uni [facility] ACTIVATED PARTIAL THRMPLAS 2020-06-25 16:21:00 Wili [facility] ACTIVATED PARTIAL THRMPLAS 2020-06-25 16:21:00 Wili, [facility] LACTIC ACID WHOLE BLOOD 2020-06-25 16:20:00 Alanna Avalos [facility] LACTIC ACID WHOLE BLOOD 2020-06-25 16:20:00 Alanna Avalos [facility] POCT GLUCOSE (AUTOMATED) 2020-06-25 12:17:00 Ricardo Cohen Uni [facility] POCT GLUCOSE (AUTOMATED) 2020-06-25 12:17:00 [facility]SE (AUTOMATED) 2020-06-25 09:29:00 Ricardo Cohen Uni [facility] POCT GLUCOSE (AUTOMATED) 2020-06-25 09:29:00 Ricardo Cohen [facility] MAG[facility]ESIUM 2020-06-25 07:59:00 [facility]ili [facility] BASIC METABOLIC PANEL (NA, 2020-06-25 07:59:00 Wili [facility] K, CL, CO2, GLUCOSE, BUN, Vi Medica Branch CREATININE, CA) CBC WITH DIFF 2020-06-25 07:59:00 Shaikh [facility] CBC WITH DIFF 2020-06-25 07:59:00 Shaikh [facility] MAGNESIUM 2020-06-25 07:59:00 [facility] BASIC [facility]OLIC PANEL (NA, 2020-06-25 07:59:00 Wili, [facility] K, CL, CO2, GLUCOSE, BUN, [facility] CREATININE, CA) POCT GLUCOSE (AUTOMATED) 2020-06-25 05:11:00 Ricardo Cohen [facility] POCT GLUCOSE (AUTOMATED) 2020-06-25 05:11:00 Ricardo Cohen [facility] ACTIVATED PARTIAL THRMPLAS 2020-06-25 04:15:00 Wili, [facility] ACTIVATED PARTIAL THRMPLAS 2020-06-25 04:15:00 Wili [facility] POCT GLUCOSE (AUTOMATED) 2020-06-25 00:40:00 Ricardo Cohen [facility] POCT GLUCOSE (AUTOMATED) 2020-06-25 00:40:00 Ricardo Cohen [facility] MAGNESIUM 2020-06-24 20:18:00 [facility] BASIC [facility]OLIC PANEL (NA, 2020-06-24 20:18:00 Shaikh [facility] K, CL, CO2, GLUCOSE, BUN, Medica l Branch CREATININE, CA) BASIC METABOLIC PANEL (NA, 2020-06-24 20:18:00 Shaikh [facility] K, CL, CO2, GLUCOSE, BUN, Medica l Branch CREATININE, CA) MAGNESIUM 2020-06-24 20:18:00 [facility]SE (AUTOMATED) 2020-06-24 16:30:00 Ricardo Cohen [facility] POCT GLUCOSE (AUTOMATED) 2020-06-24 16:30:00 Ricardo Cohen [facility] ACTIVATED PARTIAL THRMPLAS 2020-06-24 15:57:00 Wili [facility] ACTIVATED PARTIAL THRMPLAS 2020-06-24 15:57:00 Wili [facility] POCT GLUCOSE (AUTOMATED) 2020-06-24 12:53:00 Ricardo Cohen [facility] POCT GLUCOSE (AUTOMATED) 2020-06-24 12:53:00 Ricardo Cohen [facility] MAGNESIUM 2020-06-24 06:21:00 Shaikh [facility] BASIC METABOLIC PANEL (NA, 2020-06-24 06:21:00 Shaikh [facility] K, CL, CO2, GLUCOSE, BUN, Medica l Branch CREATININE, CA) CBC WITH DIFF 2020-06-24 06:21:00 Shaikh [facility] AC PANEL 20 + LACTIC ACID 2020-06-24 06:21:00 Wili [facility] MAGNESIUM 2020-06-24 06:21:00 Shaikh [facility] BASIC METABOLIC PANEL (NA, 2020-06-24 06:21:00 Shaikh [facility] K, CL, CO2, GLUCOSE, BUN, Medica l Branch CREATININE, CA) CBC WITH DIFF 2020-06-24 06:21:00 Shaikh [facility] AC PANEL 20 + LACTIC ACID 2020-06-24 06:21:00 Wili [facility] ACTIVATED PARTIAL THRMPLAS 2020-06-24 04:58:00 Shaikh [facility] ACTIVATED PARTIAL THRMPLAS 2020-06-24 04:58:00 Shaikh [facility] POCT GLUCOSE (AUTOMATED) 2020-06-24 04:57:00 Noel [facility] ([facility]OMATED) 2020-06-24 04:57:00 Noel Ricardo Mervat [facility] POCT GLUCOSE (AUTOMATED) 2020-06-24 00:34:00 Ricardo Cohen Mervat [facility] POCT GLUCOSE (AUTOMATED) 2020-06-24 00:34:00 Ricardo Cohen Mervat [facility] POCT GLUCOSE (AUTOMATED) 2020-06-23 20:48:00 Ricardo Cohen Mervat [facility] POCT GLUCOSE (AUTOMATED) 2020-06-23 20:48:00 Ricardo Cohen [facility] URINE CULTURE 2020-06-23 20:41:00 Shaikh [facility] URINE CULTURE 2020-06-23 20:41:00 Shaikh [facility] BLOOD CULTURE SCREEN 2020-06-23 20:40:00 Shaikh [facility] URINALYSIS 2020-06-23 20:40:00 Shaikh [facility] BLOOD CULTURE SCREEN 2020-06-23 20:40:00 [facility] URINALYSIS 2020-06-23 20:40[facility]00 [facility] [facility] BLOOD CULTURE SCREEN 2020-06-23 20:39:00 [facility] BASIC METABOLIC PANEL (NA, 2020-06-23 20:39:00 Shaikh [facility] K, CL, CO2, GLUCOSE, BUN, Medica l Branch CREATININE, CA) SPUTUM CULTURE 2020-06-23 20:39:00 Shaikh [facility] BASIC METABOLIC PANEL (NA, 2020-06-23 20:39:00 Shaikh [facility] K, CL, CO2, GLUCOSE, BUN, Medica l Branch CREATININE, CA) BLOOD CULTURE SCREEN 2020-06-23 20:39:00 Alanna [facility]valos [facility] SPUTUM CULTURE 2020-06-23 20:39:[address] [facility] POCT GLUCOSE (AUTOMATED) 2020-06-23 16:47:00 Ricardo Cohen [facility] POCT GLUCOSE (AUTOMATED) 2020-06-23 16:47:00 Ricardo Cohen [facility] ACTIVATED PARTIAL THRMPLAS 2020-06-23 16:00:00 Alanna Avalos [facility] ACTIVATED PARTIAL THRMPLAS 2020-06-23 16:00:00 [facility] (AUTOMATED) 2020-06-23 13:00:00 Ricardo Cohen [facility] POCT GLUCOSE (AUTOMATED) 2020-06-23 13:00:00 Ricardo Cohen [facility] XR CHEST 1 VW 2020-06-23 12:12:00 Jeffrey [facility] XR CHEST 1 VW 2020-06-23 12:12:00 Jeffrey [facility] AC PANEL 20 + LACTIC ACID 2020-06-23 10:30:00 Wili [facility] AC PANEL 20 + LACTIC ACID 2020-06-23 10:30:00 Wili [facility] MAGNESIUM 2020-06-23 08:39:00 [facility]IC METABOLIC PANEL (NA, 2020-06-23 08:39:00 [facility], CO2, GLUCOSE, BUN, Medica l Branch CREATININE, CA) CBC WITH DIFF 2020-06-23 08:39:00 [facility] MAG[facility]UM 2020-06-23 08:39:00 [facility] BASIC METABOLIC PANEL (NA, 2020-06-23 08:39:00 Shaikh [facility] K, CL, CO2, GLUCOSE, BUN, Medica l Branch CREATININE, CA) CBC WITH DIFF 2020-06-23 08:39:00 [facility] PO[facility] GLUCOSE (AUTOMATED) 2020-06-23 08:38:00 Ricardo Cohen [facility] POCT GLUCOSE (AUTOMATED) 2020-06-23 08:38:00 Ricardo Cohen [facility] ACTIVATED PARTIAL THRMPLAS 2020-06-23 04:16:00 [facility]UCOSE (AUTOMATED) 2020-06-23 04:16:00 Ricardo Cohen [facility] ACTIVATED PARTIAL THRMPLAS 2020-06-23 04:16:00 [facility] PO[facility] GLUCOSE (AUTOMATED) 2020-06-23 04:16:00 Ricardo Cohen [facility] POCT GLUCOSE (AUTOMATED) 2020-06-23 01:43:00 Ricardo Cohen [facility] POCT GLUCOSE (AUTOMATED) 2020-06-23 01:43:00 Ricardo Cohen [facility] MAGNESIUM 2020-06-22 21:06:00 [facility] BASIC METABOLIC PANEL (NA, 2020-06-22 21:06:00 Shaikh [facility] K, CL, CO2, GLUCOSE, BUN, Medica l Branch CREATININE, CA) ACTIVATED PARTIAL THRMPLAS 2020-06-22 21:06:00 [facility]IC MET[facility]OLIC PANEL (NA, 2020-06-22 21:06:00 Avalos [facility] K, CL, CO2, GLUCOSE, BUN, Medica l Branch CREATININE, CA) ACTIVATED PARTIAL THRMPLAS 2020-06-22 21:06:00 [facility] MAG[facility]IUM 2020-06-22 21:06:00 [facility] ([facility]OMATED) 2020-06-22 20:49:00 Ricardo Cohen Uni [facility] POCT GLUCOSE (AUTOMATED) 2020-06-22 20:49:00 Ovchristine Ricardo Crowell [facility] POCT GLUCOSE (AUTOMATED) 2020-06-22 16:28:00 Noel Ricardo Crowell [facility] POCT GLUCOSE (AUTOMATED) 2020-06-22 16:28:00 Ovchristine Ricardo Crowell [facility] POCT GLUCOSE (AUTOMATED) 2020-06-22 12:49:00 Ovchristine [facility]ardo [facility] PO[facility] GLUCOSE (AUTOMATED) 2020-06-22 12:49:00 Ovchristine Ricardo Crowell [facility] POCT GLUCOSE (AUTOMATED) 2020-06-22 08:53:00 Noel Ricardo Crowell [facility] POCT GLUCOSE (AUTOMATED) 2020-06-22 08:53:00 Ricardo Cohen Mervat [facility] MAGNESIUM 2020-06-22 08:18:00 Shaikh [facility] BASIC METABOLIC PANEL (NA, 2020-06-22 08:18:00 Shaikh [facility] K, CL, CO2, GLUCOSE, BUN, Medica l Branch CREATININE, CA) CBC WITH DIFF 2020-06-22 08:18:00 Shaikh [facility] D-DIMER 2020-06-22 08:18:00 Shaikh [facility] ACTIVATED PARTIAL THRMPLAS 2020-06-22 08:18:00 Shaikh [facility] PROCALCITONIN 2020-06-22 08:18:00 Shaikh [facility] PROCALCITONIN 2020-06-22 08:18:00 Shaikh [facility] D-DIMER 2020-06-22 08:18:00 Shaikh [facility] MAGNESIUM 2020-06-22 08:18:00 Shaikh [facility] BASIC METABOLIC PANEL (NA, 2020-06-22 08:18:00 Shaikh [facility] K, CL, CO2, GLUCOSE, BUN, Medica l Branch CREATININE, CA) CBC WITH DIFF 2020-06-22 08:18:00 [facility] ACTIVATED PARTIAL THRMPLAS 2020-06-22 08:18:00 Shaikh [facility] POCT GLUCOSE (AUTOMATED) 2020-06-22 08:16:00 Ricardo Cohen [employer] [facility] POCT GLUCOSE (AUTOMATED) 2020-06-22 08:16:00 Ricardo Cohen [facility] POCT GLUCOSE (AUTOMATED) 2020-06-22 04:57:00 Ricardo Cohen [facility] POCT GLUCOSE (AUTOMATED) 2020-06-22 04:57:00 Ricardo Cohen [facility] ACTIVATED PARTIAL THRMPLAS 2020-06-22 02:16:00 Shaikh [facility] ACTIVATED PARTIAL THRMPLAS 2020-06-22 02:16:00 [facility] PO[facility]UCOSE (AUTOMATED) 2020-06-22 00:53:00 Ricardo Cohen [facility] POCT GLUCOSE (AUTOMATED) 2020-06-22 00:53:00 Ricardo Cohen [facility] MAGNESIUM 2020-06-21 22:04:00 [facility] BASIC METABOLIC PANEL (NA, 2020-06-21 22:04:00 Shaikh [facility] K, CL, CO2, GLUCOSE, BUN, Medica l Branch CREATININE, CA) BASIC METABOLIC PANEL (NA, 2020-06-21 22:04:00 Avalos [facility] K, CL, CO2, GLUCOSE, BUN, Medica l Branch CREATININE, CA) MAGNESIUM 2020-06-21 22:04:00 [facility] POCT GLUCOSE (AUTOMATED) 2020-06-21 21:15:00 Ricardo Cohen [facility] POCT GLUCOSE (AUTOMATED) 2020-06-21 21:15:00 Ricardo Cohen [facility] POCT GLUCOSE (AUTOMATED) 2020-06-21 16:36:00 Ricardo Cohen [facility] POCT GLUCOSE (AUTOMATED) 2020-06-21 16:36:00 Ricardo Cohen [facility] ACTIVATED PARTIAL THRMPLAS 2020-06-21 13:56:00 Viktor Mondragon [facility] ACTIVATED PARTIAL THRMPLAS 2020-06-21 13:56:00 Viktor Mondragon [facility] POCT GLUCOSE (AUTOMATED) 2020-06-21 12:42:00 Ricardo Cohen [facility] POCT GLUCOSE (AUTOMATED) 2020-06-21 12:42:00 Ricardo Cohen [facility] HB ECG ROUTINE & RHYTHM 2020-06-21 10:05:[address] [facility] STRIP [facility] HB ECG ROUTINE & RHYTHM 2020-06-21 10:05:[address] [facility] STRIP [facility] POCT GLUCOSE (AUTOMATED) 2020-06-21 09:07:00 Ricardo Cohen [facility] POCT GLUCOSE (AUTOMATED) 2020-06-21 09:07:00 Ricardo Cohen [facility] PHOSPHORUS 2020-06-21 06:06:00 Max Cormier [facility] MAGNESIUM 2020-06-21 06:06:00 Wili [facility] TROPONIN I 2020-06-21 06:06:[address] [facility] BASIC METABOLIC PANEL (NA, 2020-06-21 06:06:00 Shea Rasheed [facility] K, CL, CO2, GLUCOSE, BUN, Vi Medica l Branch CREATININE, CA) CBC WITH DIFF 2020-06-21 06:06:00 Wili [facility] TROPONIN I 2020-06-21 06:06:[address] [facility] BASIC METABOLIC PANEL (NA, 2020-06-21 06:06:00 Shea Rasheed [facility] K, CL, CO2, GLUCOSE, BUN, Vi [facility]ica [facility] CREATININE, CA) CBC WITH DIFF 2020-06-21 06:06:00 Wili [facility] MAGNESIUM 2020-06-21 [facility]:06[facility] 2020-06-21 06:06:00 [facility]SE (AUTOMATED) 2020-06-21 05:01:00 Ricardo Cohen [facility] POCT GLUCOSE (AUTOMATED) 2020-06-21 05:01:00 Ricardo Cohen [facility] ACTIVATED PARTIAL THRMPLAS 2020-06-21 01:28:00 Viktor Mondragon [facility] ACTIVATED PARTIAL THRMPLAS 2020-06-21 01:28:00 Viktor Mondragon [facility] POCT GLUCOSE (AUTOMATED) 2020-06-21 01:19:00 Ricardo Cohen [facility] POCT GLUCOSE (AUTOMATED) 2020-06-21 01:19:00 Ricardo Cohen [facility] TROPONIN I 2020-06-20 22:37:[address] [facility] AC PANEL 20 + LACTIC ACID 2020-06-20 22:37:00 Pollo Ruiz [facility] TROPONIN I 2020-06-20 22:37:[address] [facility] AC PANEL 20 + LACTIC ACID 2020-06-20 22:37:00 Pollo Ruiz [facility] XR CHEST 1 VW 2020-06-20 22:20:[address] [facility] XR CHEST 1 VW 2020-06-20 22:20:[address] [facility] POCT GLUCOSE (AUTOMATED) 2020-06-20 21:01:00 [facility] GLUCOSE (AUTOMATED) 2020-06-20 21:01:00 Ricardo Cohen [facility] DUPLEX VENOUS LEGS 2020-06-20 20:30:44 Pollo Ruiz [facility] BILATERAL - BY VASCULAR [facility] LAB DUPLEX VENOUS LEGS 2020-06-20 20:30:44 Pollo Ruiz [facility] BILATERAL - BY VASCULAR [facility] LAB POCT GLUCOSE (AUTOMATED) 2020-06-20 19:49:00 Ricardo Cohen [facility] POCT GLUCOSE (AUTOMATED) 2020-06-20 19:49:00 Ricardo Cohen [facility] ACTIVATED PARTIAL THRMPLAS 2020-06-20 19:32:00 [facility] PART[facility] THRMPLAS 2020-06-20 19:32:00 Viktor Mondragon U [facility] MAGNESIUM 2020-06-20 17:40:[facility] 2020-06-20 17:40:[address] [facility] BASIC METABOLIC PANEL (NA, 2020-06-20 17:40:00 [facility]ili[facility], CL, CO2, GLUCOSE, BUN, [facility] CREATININE, CA) INTACT PTH CALCIUM GROUP 2020-06-20 17:40:00 Alblaineh, [facility]af [facility] INTA[facility] CALCIUM GROUP 2020-06-20 17:40:00 Keyanamoh, Manaf A U [facility] TROPONIN I 2020-06-20 17:40:[address] [facility] BASIC METABOLIC PANEL (NA, 2020-06-20 17:40:00 Wili, [facility] K, CL, CO2, GLUCOSE, BUN, [facility] CREATININE, CA) MAGNESIUM 2020-06-20 17:40:00 Wili [facility] POCT GLUCOSE (AUTOMATED) 2020-06-20 16:15:00 Ricardo Cohen Uni versity [facility] POCT GLUCOSE (AUTOMATED) 2020-06-20 16:15:00 Ricardo Cohen Uni versity [facility] POCT GLUCOSE (AUTOMATED) 2020-06-20 15:12:00 OvRicardo king Uni versity [facility] POCT GLUCOSE (AUTOMATED) 2020-06-20 15:12:00 OvRicardo king Uni versity [facility] POCT GLUCOSE (AUTOMATED) 2020-06-20 14:44:00 OvRicardo king Uni vers[facility] POCT GLUCOSE (AUTOMATED) 2020-06-20 14:44:00 Ricardo Cohen Uni vers[facility] POCT GLUCOSE (AUTOMATED) 2020-06-20 14:20:00 Ricardo Cohen Uni vers[facility] POCT GLUCOSE (AUTOMATED) 2020-06-20 14:20:00 Ricardo Cohen [facility]ST 1 2020-06-20 11:50:00 [facility]ili [facility] CHEST 1 2020-06-20 11:50[facility] 2020-06-20 10:50:00 Wili [facility] TROPONIN I 2020-06-20 10:50:00 Wili [facility] XR CHEST 1 2020-06-20 09:01:00 Jeffrey [facility] XR CHEST 1 2020-06-20 09:01:00 Jeffrey [facility] AC PANEL 20 + LACTIC ACID 2020-06-20 07:17:00 [facility] + LACTIC ACID 2020-06-20 07:17:00 Wili [facility] LACTIC ACID WHOLE BLOOD 2020-06-20 07:14:00 Muraleedrlan, [facility] LACTIC ACID WHOLE BLOOD 2020-06-20 07:14:00 Muraleedrlan, [facility] BASIC METABOLIC PANEL (NA, 2020-06-20 06:48:00 Muraleedharan, [facility] K, CL, CO2, GLUCOSE, BUN, [facility] CREATININE, CA) CBC WITH DIFF 2020-06-20 06:48:00 [facility] 2020-06-20 06:48:00 [facility] ACTIVATED PARTIAL THRMPLAS 2020-06-20 06:48:00 Muraleedrlan, [facility] D-DIMER 2020-06-20 06:48:00 [facility] BASIC METABOLIC PANEL (NA, 2020-06-20 06:48:00 Muraleedharan, [facility] K, CL, CO2, GLUCOSE, BUN, [facility] CREATININE, CA) CBC WITH DIFF 2020-06-20 06:48:00 [facility] ACTIVATED PARTIAL THRMPLAS 2020-06-20 06:48:00 Muraleedrlan, [facility] CREATININE, URINE RANDOM 2020-06-20 06:24:00 Muraleedgarcia, [facility] UREA NITROGEN, URINE 2020-06-20 06:24:00 Muraleedgarcia, [facility] SODIUM, URINE RANDOM 2020-06-20 06:24:00 Muraleedrlan, [facility] MRSA / MSSA SCREEN BY PCR, 2020-06-20 06:24:00 Murmackedrlan, [facility] CREATININE, URINE RANDOM 2020-06-20 06:24:00 Murclaude, [facility] UREA NITROGEN, URINE 2020-06-20 06:24:00 Murclaude, [facility] RANDOM [facility] SODIUM, URINE RANDOM 2020-06-20 06:24:00 Muraleedrlan, [facility] MRSA / MSSA SCREEN BY PCR, 2020-06-20 06:24:00 Murclaude, [facility] XR ABDOMEN 1 VW 2020-06-20 06:16:15 [facility] ABDOMEN 1 VW 2020-06-20 06:16:15 Murclaude, [facility] HB ECG ROUTINE & RHYTHM 2020-06-20 05:32:10 Muraleedgarcia, [facility] HB ECG ROUTINE & RHYTHM 2020-06-20 05:32:10 Murmackedgarcia, [facility] MAGNESIUM 2020-06-20 03:46:00 [facility] TROPONIN I 2020-06-20 03:46:00 Noel [facility] BASIC METABOLIC PANEL (NA, 2020-06-20 03:46:00 Muraleedharan, [facility] K, CL, CO2, GLUCOSE, BUN, Vi [facility] CREATININE, CA) LIPID PANEL (04631)(TOTAL 2020-06-20 03:46:00 Muraleedharan, [facility] TRIGLY[facility]ERIDES, HDL) TROPONIN I 2020-06-20 03:46:00 Noel [facility] BASIC METABOLIC PANEL (NA, 2020-06-20 03:46:00 Muraleedharan, [facility] K, CL, CO2, GLUCOSE, BUN, Vi [facility] CREATININE, CA) LIPID PANEL ([id number])(TOTAL 2020-06-20 03:46:00 Muraleedharan, [facility] TRIGLYCERIDES, HDL) MAGNESIUM 2020-06-20 03:46:00 [facility] AC ABG + LACTIC ACID 2020-06-20 03:44:00 [facility] AC ABG + LACTIC ACID 2020-06-20 03:44:00 [facility] URINALYSIS 2020-06-20 01:43:00 [facility] 2020-06-20 01:43:00 [facility] POCT GLUCOSE (AUTOMATED) 2020-06-20 00:54:00 Ricardo Cohen [facility] POCT GLUCOSE (AUTOMATED) 2020-06-20 00:54:00 Ricardo Cohen [facility] US RETROPERITONEAL 2020-06-20 00:39:33 Ricky Wickaf A [facility] US RETROPERITONEAL 2020-06-20 00:39:33 Ricky Wickaf A [facility] BLOOD CULTURE SCREEN 2020-06-19 23:11:00 Ricardo Cohen [facility] PROTHROMBIN TIME / INR 2020-06-19 23:11:00 Viktor Mondragon [facility] ACTIVATED PARTIAL THRMPLAS 2020-06-19 23:11:00 [facility] BLOOD [facility] SCREEN 2020-06-19 23:11:00 Ricardo Cohen [facility] PROTHROMBIN TIME / INR 2020-06-19 23:11:00 Viktor Mond[facility]agon [facility] ACTIVATED PARTIAL THRMPLAS 2020-06-19 23:11:00 [facility] POCT GLUCOSE (AUTOMATED) 2020-06-19 21:26:00 Ricardo Cohen [facility] POCT GLUCOSE (AUTOMATED) 2020-06-19 21:26:00 Ricardo Cohen [facility] TRANSTHORACIC ECHO (TTE) 2020-06-19 21:05:00 Ricardo Cohen [facility] TRANSTHORACIC ECHO (TTE) 2020-06-19 21:05:00 Ricardo Cohen [facility] COMPLETE [facility] URINALYSIS 2020-06-19 20:17:00 Stephania Murdock [facility] URINALYSIS 2020-06-19 20:17:00 Stephania Murdock [facility] COVID-19 (MOLECULAR 2020-06-19 20:05:00 [facility] NUCLEIC ACID AMPLIFICATION) LAB ONLY COVID 2020-06-19 20:05:00 Noel [facility] COVID-19 (MOLECULAR 2020-06-19 20:05:00 Noel [facility] NUCLEIC ACID AMPLIFICATION) LAB ONLY COVID 2020-06-19 20:05:00 Ricardo Cohen [facility] CREATINE KINASE 2020-06-19 20:02:[address] [facility] URIC ACID 2020-06-19 20:02:[address] [facility] TROPONIN I 2020-06-19 20:02:00 [facility] 2020-06-19 20:02:00 Noel [facility] CREATINE KINASE 2020-06-19 20:02:[address] [facility] URIC ACID 2020-06-19 20:02:[address] [facility] ACUTE CARE ARTERIAL BLOOD 2020-06-19 19:51:00 Ricardo [facility] ARTERIAL BLOOD 2020-06-19 19:51:00 Ricardo [facility] GAS [facility] NC INSERT EMERGENCY 2020-06-19 17:54:35 Stephania Murdock [facility] ENDOTRACH AIRWAY [facility] NC INSERT EMERGENCY 2020-06-19 17:54:35 Stephania Murdock [facility] ENDOTRACH AIRWAY Medical Branch XR CHEST 1 VW 2020-06-19 17:48:00 Stephania Murdock [facility] [place] XR CHEST 1 VW 2020-06-19 17:48:00 Stephania Murdock [facility] AC PANEL 20 + LACTIC ACID 2020-06-19 16:50:[address] [facility] AC PANEL 20 + LACTIC ACID 2020-06-19 16:50:[address] [facility] CONSENT/REFUSAL FOR 2020-06-19 15:42:48 Doctor Unasskassi, [facility] DIAGNOSIS AND TREATMENT [facility] CONSENT/REFUSAL FOR 2020-06-19 15:42:48 Doctor Unasskassi, [facility] DIAGNOSIS AND TREATMENT [facility] NOTICE OF PRIVACY 2020-06-19 15:42:32 Doctor Unassigned, [facility] PRACTICES [facility] NOTICE OF PRIVACY 2020-06-19 15:42:32 Doctor Unassigned, [facility] PRACTICES [facility] AC PANEL 20 + LACTIC ACID 2020-06-19 15:33:[address] [facility] AC PANEL 20 + LACTIC ACID 2020-06-19 15:33:[address] [facility] XR CHEST 1 2020-06-19 14:52:20 Stephania Murdock [facility] XR CHEST 1 2020-06-19 14:52:20 Stephania Murdock [facility] HB ECG ROUTINE & RHYTHM 2020-06-19 14:37:34 Stephania Murdock [facility] HB ECG ROUTINE & RHYTHM 2020-06-19 14:37:34 Stephania Murdock [facility] LIPASE 2020-06-19 14:37:00 Stephania Murdock [facility] TROPONIN I 2020-06-19 14:37:00 Stephania Murdock [facility] THYROID STIMULATING 2020-06-19 14:37:00 Ricardo Cohen [facility] HORMONE [facility] HEPATIC FUNCTION PANEL 2020-06-19 14:37:00 Stephania Murdock [facility] ([id number]) (ALB,T.PRO,BILI Medical Branch T,BU/BC,ALT,AST,ALK PHOS) BASIC METABOLIC PANEL (NA, 2020-06-19 14:37:00 Stephania Murdock [facility] K, CL, CO2, GLUCOSE, BUN, Medica l Branch CREATININE, CA) CBC WITH DIFF 2020-06-19 14:37:00 Stephania Murdock [facility] GLYCOSYLATED HEMOGLOBIN 2020-06-19 14:37:00 [facility] N-TERMINAL PRO-BNP 2020-06-19 14:37:00 Stephania Murdock [facility] AC PANEL 21 + LACTIC ACID 2020-06-19 14:37:[address] [facility] COVID-19 (ID NOW RAPID 2020-06-19 14:37:00 Stephania Murdock [facility] TESTING) Medical Branch LAB ONLY COVID 2020-06-19 14:37:00 Stephania Murdock [facility] INTERPRETATION [facility] CBC WITH DIFF 2020-06-19 14:37:00 Stephania Murdock [facility] BASIC METABOLIC PANEL (NA, 2020-06-19 14:37:00 Stephania Murdock [facility] K, CL, CO2, GLUCOSE, BUN, Medica l Branch CREATININE, CA) HEPATIC FUNCTION PANEL 2020-06-19 14:37:00 Stephania Murdock [facility] ([id number]) (ALB,T.PRO,BILI Medical Branch T,BU/BC,ALT,AST,ALK PHOS) LIPASE 2020-06-19 14:37:00 Stephania Murdock [facility] TROPONIN I 2020-06-19 14:37:00 Stephania Murdock [facility] N-TERMINAL PRO-BNP 2020-06-19 14:37:00 Stephania Murdock [facility] COVID-19 (ID NOW RAPID 2020-06-19 14:37:00 Stephania Murdock [facility] TESTING) [facility] [place] AC PANEL 21 + LACTIC ACID 2020-06-19 14:37:[address] [facility] LAB ONLY COVID 2020-06-19 14:37:00 Stephania Murdock [facility] INTERPRETATION Medical Branch THYROID STIMULATING 2020-06-19 14:37:00 Ricardo Cohen [facility] HORMONE Medical Branch GLYCOSYLATED HEMOGLOBIN 2020-06-19 14:37:[address] [facility] (A1C) Medical Branch EMERGENCY DEPARTMENT 2020-06-19 05:01:00 Doctor Unassigned, [facility] DOCUMENTS [facility] HOSPITAL ADMISSION 2020-06-19 05:01:00 Doctor Unassigned, [facility] AD[facility] [facility] [place] 2020-06-19 05:01:00 Doctor Unassigned, [facility] MEDICARE PATIENTS RIGHTS [facility] IMPORTANT MESSAGE EMERGENCY DEPARTMENT 2020-06-19 05:01:00 Doctor Unassigned, [facility] DOCUMENTS [facility] HOSPITAL ADMISSION [facility] - 2020-06-19 05:01:00 Doctor Unassigned, [facility] MEDICARE PATIENTS RIGHTS [facility] IMPORTANT MESSAGE HOSPITAL ADMISSION 2020-06-19 05:01:00 Doctor Unassigned, [facility] Encounters Start End Encounter Admission Attending Care Care Encounter Source Date/Time Date/Time Type Type Clinicians Facility Department ID 2021-12-02 Outpatient [facility] [id number] [place] 11:09:01 [id number] [facility] 2021-11-28 Outpatient [facility] [id number] [place] 04:11:33 [id number] [facility] 2021-11-27 Outpatient [facility] [id number] [place] 08:19:22 [id number] [facility] 2021-11-21 Outpatient [id number] [facility] REF [id number] [facility] 14:28:18 082021-11-20 Outpatient 3 [id number] [facility] REF [id number] [facility] 13:27:55 082021-11-19 Outpatient 3 [id number] [facility] REF [id number] [facility] 11:51:31 [id number] 2021-09-08 Outpatient MARTITA [facility] [id number] [place] 12:55:10 LAWRENCE [id number] [facility] 2021-09-02 Outpatient [facility] [id number] [place] 16:37:09 [id number] [facility] 2021-08-01 Outpatient MARTITA, [facility] [id number] [place] 01:05:02 LAWRENCE [id number] [facility] 2021-06-04 Outpatient Huber, HCAPM H[facility] [id number] [facility] 14:33:[address] [place] [address] 2021-05-11 Outpatient Huber, HCAPM [facility] [id number] [facility] 02:05:[address] 2021-05-09 Outpatient 3 SHMUEL, ENCPL CRD [id number] ENCPL 15:16:39 ASHLEY [id number] 2021-02-15 Outpatient MARTITA, [facility] [id number] [place] 11:18:55 [facility] 2021-11-26 2021-12-02 Inpatient [facility] [id number] Memoria 16:10:00 02:25:00 [facility] 02 l [facility] 2021-11-26 2021-12-01 Inpatient E RENZO, MHBL MED [id number] MHBL 14:34:00 21:25:00 ZOFIA 2021-11-26 2021-12-01 Outpatient Renzo, MHPL PL [id number] 11:10:00 21:25:00 Zofia 02 Akinwale 2021-11-26 2021-11-[address] [id number] 275 11:10:00 11:10:00 Mariah 02 2021-11-22 2021-11-26 Inpatient 3 SHMUEL, ENCPL RED [id number] 22 ENCPL 15:55:00 10:56:00 ASHLEY 0820 2021-11-24 2021-11-24 Transition OBINNA Perdomo 1.2.840.114 [id number] Univers 00:00:00 00:00:00 of Care Francis MARTINI 350.1.13.10 ity kennedy [place] 4[place]7.2.686 [place] [id number] [facility] [address] 2021-11-01 2021-11-22 Inpatient X [facility] 1 [id number] [facility] 08:08:00 15:27:00 [facility] 2021-11-01 2021-11-22 [facility] Kenyetta Rehman [facility] 1.2.840.1 [id number] Univers 08:08:00 15:27:00 Encounter Braulio Figueroa 350.1.13 .10 ity Blu Hahn 4.2.7.2.686 [place] [id number] ([facility]) 2021-09-29 2021-09-29 Outpatient R [facility] [id number] Univers 16:00:00 16:00:00 IRINA [id number] [facility] 2021-09-29 2021-09-29 Outpatient R [facility] [id number] Univers 16:00:00 16:00:00 jony ROSA [facility] 2021-05-10 2021-05-23 Inpatient 3 SHMUEL, ENCPL NIRALI [id number] 22 ENCPL 01:43:00 11:30:00 ASHLEY 0205 2021-05-10 2021-05-10 Outpatient Huber, HCAPM RADI [id number] [facility] 23:40:00 23:40:00 Skyler [id number] [facility] 2021-05-10 2021-05-10 Outpatient SHMUEL, HCAPM LABO [id number] [facility] 21:40:00 21:40:00 ASHLEY [id number] [facility] 2021-05-10 2021-05-10 Outpatient SHMUEL, HCAPM LABO [id number] [facility] 21:40:00 21:40:00 ASHLEY [id number] [facility] 2021-04-24 2021-05-09 Inpatient [facility] [id number] Memoria 14:33:00 06:40:00 nam Felton 01 l [facility] 2021-04-24 2021-05-09 Inpatient CUBA FERRER MED [id number] 12:15:00 00:40:00 [facility] 2021-04-24 2021-05-09 Outpatient CUBA Hamilton [facility] [id number] 08:33:00 00:40:00 Chetna 2021-05-02 2021-05-02 [facility] [id number] Univers 14:00:00 14:00:00 IRINA, [id number] ity [facility] 2021-05-02 2021-05-02 [facility] [id number] Univers 14:00:00 14:00:00 IRINA [facility] 2021-04-25 2021-04-25 Outpatient R [facility] [id number] Univers 14:00:00 14:00:00 IRINA [id number] [facility] 2021-04-25 2021-04-25 Outpatient R [facility] [id number] Univers 14:00:00 14:00:00 IRINA [facility] 2021-04-24 2021-04-24 Outpatient Stacy [facility] [id number] 08:33:00 08:33:00 Israel 01 Stephen 2021-04-15 2021-04-[address] [facility] 1.2.840.114 [id number] [place] 07:45:00 08:52:02 Encounter Lawrence WEINER 350.1.13.58 [place] [address] 9.2.7.2.686 [id number] 2 2021-02-18 2021-02-18 Outpatient [facility] [id number] Univers 13:00:00 13:00:00 IR[facility], [id number] [facility] 2021-02-03 2021-02-[address] [facility] 1.2.840.114 [id number] [place] 12:03:50 12:17:53 Visit Lawrence DARLING 350.1.13.58 Eleazar HECK 9.2.7.2.686 [facility] [id number] 1 2021-01-02 2021-01-02 Outpatient R [facility] [id number] Univers 00:00:00 00:00:00 ity of [facility] 2020-11-13 2020-11-13 Telephone Roseanna Knight 1.2.840.114 [id number] Univers 00:00:00 00:00:00 Irina Pediatric 350.1.13.10 ity [place] [id number] [address] 2020-11-12 2020-11-12 Outpatient R [facility] [id number] Univers 14:00:00 14:23:53 IRINA ity of [facility] 2020-11-12 2020-11-12 Office Roseanna Knight 1.2.840.114 [id number] Univers 13:08:36 14:23:53 Visit Irina Pediatric 350.1.13.10 [place] [id number] [address] 2020-11-12 2020-11-12 Imm/Inj Vaccine, [place] Family Eugene 1.2. 840.114 [id number] Univers 13:30:00 13:40:00 Visit AngelaDeborah carter Pediatric 350.1.13.10 ity of [place] [id number] [address] 2020-11-12 2020-11-12 Outpatient R [facility] [id number] Univers 13:30:00 13:30:00 [id number] ity of [facility] 2020-11-12 2020-11-12 Orders Doctor FARSHAD 1.2.840.114 [id number] Univers 00:00:00 00:00:00 Only Unassigned, RODRIGO 350.1.13.10 ity of [facility] 4.2.7.2.686 Luis as [id number] [place] [address] [address] 2020-09-23 2020-10-11 Inpatient 3 Khalik, ENCPL PUL [id number] 21 ENCPL 17:35:00 11:45:00 Andrey 0621 2020-09-26 2020-09-27 Inpatient EM Jim, [facility] MED [id number] [facility] 22:33:00 21:15:00 Oladipo [id number] [facility] 2020-09-27 2020-09-27 Outpatient Darline, HCACL LABO [id number] [facility] 00:02:00 00:02:00 Franck [id number] [place] [facility] 2020-09-11 2020-09-11 Telephone [employer] [place] 1.2.840.114 [id number] [facility] 00:00:00 00:00:00 [place], Pediatric 350.1.13.10 [place] [id number] [place] [id number] Branch [facility] 2020-07-31 2020-07-31 Telephone [employer]- [facility] 1.2.840.11 [id number] 00:00:00 00:00:00 Irina, Y HEALTH 350.1.13.10 [place] [facility] 4.2.7.2.686 [id number] [facility] 2020-07-31 2020-07-31 Telephone [employer]- [facility] 1.2.840.11 [id number] Univers 00:00:00 00:00:00 Irina, Y HEALTH 350.1.13.10 ity of [place] 4.2.7.2.[place] [id number] [place] [address] [address] 2020-07-26 2020-07-26 [facility] 1.2.840.114 [id number] 00:00:00 00:00:00 [place], Health 350.1.13.10 [place] 4.2.7.2.686 [place] [phone] [place] [address] Office Building 2020-07-26 2020-07-26 Telephone [facility]Perfect[facility] 1.2.840.114 [id number] Univers 00:00:00 00:00:00 [place], Health 350.1.13.10 ity of [place]2.[place] [id number] [facility] Medical [address] Office Building 2020-07-23 2020-07-23 Transition Obinna Rivas 1.2.840.114 [id number] 00:00:00 00:00:00 of Care Pastora Martini 350.1.13.10 [place] 4.2.7.2.686 [id number] 2020-07-23 2020-07-23 Transition Obinna Rivas 1.2.840.114 [id number] [facility] 00:00:00 00:00:00 of Care Pastora Martini 350.1.13.10 it y of [place] 4[place]2.7.2.[place] [id number] [facility] [address] 2020-06-19 2020-07-22 [facility] Stephania Murdock 1.2.84 0.114 [id number] 09:24:00 17:06:00 Encounter Ricardo Cohen 350.1.13.10 [facility] 4.2.7.2 .686 [facility] [phone] 2020-06-19 2020-07-22 [facility] Stephania Murdock 1.2.84 0.114 [id number] [facility] 09:24:00 17:06:00 Encounter Ricardo Cohen 350.1.13.10 ity of [facility] 4.2.7.2 .686 [facility] [phone] [place] [facility] Pap[address] Christa 2020-06-19 2020-07-22 [facility] [id number] Univers 09:24:00 17:06:00 IRINA, ity of [facility] 2020-07-09 2020-07-09 Anesthesia Dwaine, 1.2.840.7 [id number] Univers 08:52:17 08:52:17 Event Mary Negro 38513.1.1 ity of 3.104.2.7 [place] .3.226730 Medica l .8 Branch 2020-06-19 2020-06-19 Travel 1.2.840.1 1.2.887.800 [id number] Univers 00:00:00 00:00:00 [id number] 350.1.13.10 ity of 3.104.2.7 4.[place].3.698 [place] .3.609932 084.8 Medica l .8 Branch Results Test Description Test Time Test Comments Results Result Comments Source CHEM PANEL 2021-12-01 10:16:00 Test Item Value Reference Range Interpretation Comme nts Glucose Lvl (test code = Glucose Lvl) 86 70-99 [facility] [id number] 10:16:00 Test Item Value Reference Range Interpretation Comments BUN (test code = BUN) 4 7-22 [facility] [id number] 10:16:00 Test Item Value Reference Range Interpretation Comments Creatinine Lvl (test code = Creatinine 0.71 0.50-1.40 Lvl) [facility] [id number] 10:16:00 Test Item Value Reference Range Interpretation Comments Sodium Lvl (test code = Sodium Lvl) 141 135-145 [facility] [id number] 10:16:00 Test Item Value Reference Range Interpretation Comments Potassium Lvl (test code = Potassium 3.8 3.5-5.1 Lvl) [facility] [employer] [id number] 10:16:00 Test Item Value Reference Range Interpretation Comments Chloride Lvl (test code = Chloride Lvl) 107 95-109 [facility] [id number] 10:16:00 Test Item Value Reference Range Interpretation Comments CO2 (test code = CO2) 27 24-32 [facility] [id number] 10:16:00 Test Item Value Reference Range Interpretation Comments Calcium Lvl (test code = Calcium Lvl) 9.5 8.5-10.5 [facility] [id number] 10:16:00 Test Item Value Reference Range Interpretation Comments AGAP (test code = AGAP) 10.8 10.0-20.0 [facility] [id number] 10:16:00 Test Item Value Reference Range Interpretation Comments eGFR (test code = eGFR) [address] [facility]2022-08-29 10:16:00 Test Item Value Reference Range Interpretation Comments Magnesium Lvl (test code = Magnesium 1.6 1.8-2.4 Lvl) [facility] HospitalFmgtkjeRUBHAPCGTY6324-61-32 10:16:00 Test Item Value Reference Range Interpretation Comments Segs (test code = Segs) 66.7 45.0-75.0 [facility] HospitalKexbekyCTFYORNKBP3089-80-62 10:16:00 Test Item Value Reference Range Interpretation Comments Lymphocytes (test code = Lymphocytes) 20.4 20.0-40.0 [facility] HospitalMhfuhnyGDTXIZSLAC0138-31-94 10:16:00 Test Item Value Reference Range Interpretation Comments Monocytes (test code = Monocytes) 9.2 2.0-12.0 [facility] HospitalGzbwymxRHPYKKRDXC6238-39-82 10:16:00 Test Item Value Reference Range Interpretation Comments Eosinophils (test code = 2.7 See_Comment [A utomated message] The Eosinophils) system which ge nerated this result tra nsmitted reference range : <=4.0. The reference r delano was not used to int erpret this result as normal/abnormal . [facility] HospitalYtuhmteLJAZWHOCMX3468-62-11 10:16:00 Test Item Value Reference Range Interpretation Comments Basophils (test code = 1.0 See_Comment [Aut omated message] The Basophils) system which ge nerated this result tra nsmitted reference range : <=1.0. The reference r delano was not used to int erpret this result as normal/abnormal . [facility] HospitalJajxgyvKYKNKUBRBX0261-96-32 10:16:00 Test Item Value Reference Range Interpretation Comments Neutrophils # (test code = Neutrophils 2.2 1.5-8.1 #) [place] 939622-08-29 10:16:00 Test Item Value Reference Range Interpretation Comments Lymphocytes # (test code = Lymphocytes 0.7 1.0-5.5 #) [facility] HospitalQfpmxdcKAEDYQCFUK9987-87-52 10:16:00 Test Item Value Reference Range Interpretation Comments Monocytes # (test code 0.3 See_Comment [Aut omated message] The = Monocytes #) system which generated this result tra nsmitted reference range : <=0.8. The reference r delano was not used to int erpret this result as normal/abnormal . [facility] HospitalNkwnbvhZEXQIQXOCG3774-17-42 10:16:00 Test Item Value Reference Range Interpretation Comments Eosinophils # (test code 0.1 See_Comment [A utomated message] The = Eosinophils #) system whic h generated this result tra nsmitted reference range : <=0.5. The reference r delano was not used to int erpret this result as normal/abnormal . [facility] HospitalExvotrwGECVVLYOHW1422-89-04 10:16:00 Test Item Value Reference Range Interpretation Comments WBC (test code = WBC) 3.3 3.7-10.4 [facility] HospitalShqcsbeVCUVDODOJW4277-48-68 10:16:00 Test Item Value Reference Range Interpretation Comments RBC (test code = RBC) 3.27 4.70-6.10 [facility] HospitalTjnbtbpEEFKSQNELW1887-12-05 10:16:00 Test Item Value Reference Range Interpretation Comments Hgb (test code = Hgb) 10.2 14.0-18.0 [facility] HospitalWusvmstPKCNTYJJXL1438-01-76 10:16:00 Test Item Value Reference Range Interpretation Comments Hct (test code = Hct) 31.8 42.0-54.0 [facility] HospitalPyqhqmpUQKNVMMYYR4610-64-86 10:16:00 Test Item Value Reference Range Interpretation Comments MCV (test code = MCV) 97.2 80.0-94.0 [facility] HospitalJezogahDVVHPQPHEV4821-90-71 10:16:00 Test Item Value Reference Range Interpretation Comments MCH (test code = MCH) 31.1 pg 27.0-31.0 [facility] HospitalQalpdcxVGCGIDSSSU1918-43-20 10:16:00 Test Item Value Reference Range Interpretation Comments MCHC (test code = MCHC) 32.0 32.0-36.0 [facility] HospitalKolptvgVGSJMRJJOQ0607-62-00 10:16:00 Test Item Value Reference Range Interpretation Comments RDW (test code = RDW) 18.1 11.5-14.5 [facility] HospitalJhfllftVMQRLDYBRQ8330-43-91 10:16:00 Test Item Value Reference Range Interpretation Comments Platelet (test code = Platelet) 158 133-450 [facility] HospitalHcnhagpNGVBWXKMGG1414-74-56 10:16:00 Test Item Value Reference Range Interpretation Comments MPV (test code = MPV) 8.1 7.4-10.4 [facility]qdrqVDRAMJYPSE8203-37-69 10:16:00 Test Item Value Reference Range Interpretation Comments Vancomycin AUC (test code = Vancomycin 24.6 AUC) [facility]2022-08-28 21:42:00 Test Item Value Reference Range Interpretation Comments Vitamin B12 Lvl (test code = Vitamin 1001 B12 Lvl) [facility]2022-08-28 21:42:00 Test Item Value Reference Range Interpretation Comments Folate Lvl (test code = Folate Lvl) 23.2 [place] 121732-08-28 21:42:00 Test Item Value Reference Range Interpretation Comments Ammonia (test code = Ammonia) 13.0 [place] 121732-08-28 21:42:00 Test Item Value Reference Range Interpretation Comments Glucose Lvl (test code = Glucose Lvl) 93 70-99 [place] 121732-08-28 21:42:00 Test Item Value Reference Range Interpretation Comments BUN (test code = BUN) 6 7-22 [place] 121732-08-28 21:42:00 Test Item Value Reference Range Interpretation Comments Creatinine Lvl (test code = Creatinine 0.81 0.50-1.40 Lvl) [place] 121732-08-28 21:42:00 Test Item Value Reference Range Interpretation Comments Sodium Lvl (test code = Sodium Lvl) 141 135-145 [place] 121732-08-28 21:42:00 Test Item Value Reference Range Interpretation Comments Potassium Lvl (test code = Potassium 4.6 3.5-5.1 Lvl) [place] 121732-08-28 21:42:00 Test Item Value Reference Range Interpretation Comments Chloride Lvl (test code = Chloride Lvl) 107 95-109 [place] 121732-08-28 21:42:00 Test Item Value Reference Range Interpretation Comments CO2 (test code = CO2) 30 24-32 [place] 121732-08-28 21:42:00 Test Item Value Reference Range Interpretation Comments Calcium Lvl (test code = Calcium Lvl) 9.1 8.5-10.5 [place] 121732-08-28 21:42:00 Test Item Value Reference Range Interpretation Comments Total Protein (test code = Total 6.8 6.4-8.4 Protein) [place] 121732-08-28 21:42:00 Test Item Value Reference Range Interpretation Comments Albumin Lvl (test code = Albumin Lvl) 2.7 3.5-5.0 [place] [address]-08-28 21:42:00 Test Item Value Reference Range Interpretation Comments ALT (test code = ALT) 13 See_Comment [Auto mated message] The system which ge nerated this result transmit glo reference range : <=65. The reference range was not used to interpr et this result as rita l/abnormal. [place] [address]-08-28 21:42:00 Test Item Value Reference Range Interpretation Comments AST (test code = AST) 13 See_Comment [Auto mated message] The system which ge nerated this result transmit glo reference range : <=37. The reference range was not used to interpr et this result as rita l/abnormal. [place] 121732-08-28 21:42:00 Test Item Value Reference Range Interpretation Comments Alk Phos (test code = Alk Phos) 110 39-136 [place] 121732-08-28 21:42:00 Test Item Value Reference Range Interpretation Comments Bili Total (test code = Bili Total) 0.6 0.2-1.3 [place] 121732-08-28 21:42:00 Test Item Value Reference Range Interpretation Comments AGAP (test code = AGAP) 8.6 10.0-20.0 [place] 121732-08-28 21:42:00 Test Item Value Reference Range Interpretation Comments B/C Ratio (test code = B/C Ratio) 7 1 6-25 [place] 121732-08-28 21:42:00 Test Item Value Reference Range Interpretation Comments Globulin (test code = Globulin) 4.1 2.7-4.2 [place] [address]-08-28 21:42:00 Test Item Value Reference Range Interpretation Comments A/G Ratio (test code = A/G Ratio) 0.7 1 0.7-1.6 [place] [address]-08-28 21:42:00 Test Item Value Reference Range Interpretation Comments eGFR (test code = eGFR) 97 [facility] HospitalOlbthkgMDKASWSOKH8278-15-62 21:42:00 Test Item Value Reference Range Interpretation Comments WBC (test code = WBC) 3.6 3.7-10.4 [facility] HospitalBddbaggGIQXVORVGN3373-09-78 21:42:00 Test Item Value Reference Range Interpretation Comments RBC (test code = RBC) 3.22 4.70-6.10 [place] 939622-08-28 21:42:00 Test Item Value Reference Range Interpretation Comments Hgb (test code = Hgb) 10.4 14.0-18.0 [place] [address]-08-28 21:42:00 Test Item Value Reference Range Interpretation Comments Hct (test code = Hct) 31.6 42.0-54.0 [place] 939622-08-28 21:42:00 Test Item Value Reference Range Interpretation Comments MCV (test code = MCV) 98.1 80.0-94.0 [place] 939622-08-28 21:42:00 Test Item Value Reference Range Interpretation Comments MCH (test code = MCH) 32.1 pg 27.0-31.0 [place] 939622-08-28 21:42:00 Test Item Value Reference Range Interpretation Comments MCHC (test code = MCHC) 32.8 32.0-36.0 [facility] HospitalFixkfcyNKANLMNKFB7887-05-40 21:42:00 Test Item Value Reference Range Interpretation Comments RDW (test code = RDW) 18.1 11.5-14.5 [place] 939622-08-28 21:42:00 Test Item Value Reference Range Interpretation Comments Platelet (test code = Platelet) 151 133-450 [facility] HospitalNdyqcamWTEODXCKET6273-30-30 21:42:00 Test Item Value Reference Range Interpretation Comments MPV (test code = MPV) 7.9 7.4-10.4 [place] [address]-08-28 21:42:00 Test Item Value Reference Range Interpretation Comments Segs (test code = Segs) 64.4 45.0-75.0 [place] [address]-08-28 21:42:00 Test Item Value Reference Range Interpretation Comments Lymphocytes (test code = Lymphocytes) 22.7 20.0-40.0 [place] 939622-08-28 21:42:00 Test Item Value Reference Range Interpretation Comments Monocytes (test code = Monocytes) 9.0 2.0-12.0 [facility] HospitalGyfngqvKOKRIBKOGF4117-58-64 21:42:00 Test Item Value Reference Range Interpretation Comments Eosinophils (test code = 3.2 See_Comment [A utomated message] The Eosinophils) system which ge nerated this result tra nsmitted reference range : <=4.0. The reference r delano was not used to int erpret this result as normal/abnormal . [facility] HospitalCyhsmxpOPQMWJGUJS8931-26-44 21:42:00 Test Item Value Reference Range Interpretation Comments Basophils (test code = 0.7 See_Comment [Aut omated message] The Basophils) system which ge nerated this result tra nsmitted reference range : <=1.0. The reference r delano was not used to int erpret this result as normal/abnormal . [facility] HospitalZampxtiILMLYHJVXY9296-07-76 21:42:00 Test Item Value Reference Range Interpretation Comments Neutrophils # (test code = Neutrophils 2.3 1.5-8.1 #) [place] 939622-08-28 21:42:00 Test Item Value Reference Range Interpretation Comments Lymphocytes # (test code = Lymphocytes 0.8 1.0-5.5 #) [place] 939622-08-28 21:42:00 Test Item Value Reference Range Interpretation Comments Monocytes # (test code 0.3 See_Comment [Aut omated message] The = Monocytes #) system which generated this result tra nsmitted reference range : <=0.8. The reference r delano was not used to int erpret this result as normal/abnormal . [facility] HospitalOsuluvoTADBBOLOTS6942-23-37 21:42:00 Test Item Value Reference Range Interpretation Comments Eosinophils # (test code 0.1 See_Comment [A utomated message] The = Eosinophils #) system whic h generated this result tra nsmitted reference range : <=0.5. The reference r delano was not used to int erpret this result as normal/abnormal . [facility]2022-08-26 23:56:00 Test Item Value Reference Range Interpretation Comments Procalcitonin Lvl (test 0.27 See_Comment [Au tomated message] code = Procalcitonin Lvl) Th e system which generated this result transmitted ref erence range: <=0.10. The reference range was not used to interpr et this result as normal/abnormal . [facility]ano[facility]kxfdpeUVMXEDDBSB6384-32-15 08:22:00 Test Item Value Reference Range Interpretation Comments Vancomycin AUC (test code = Vancomycin 19.9 AUC) [place] [address]-08-26 08:22:00 Test Item Value Reference Range Interpretation Comments Glucose Lvl (test code = Glucose Lvl) 92 70-99 [place] [address]-08-26 08:22:00 Test Item Value Reference Range Interpretation Comments BUN (test code = BUN) 15 7-22 [place] [address]-08-26 08:22:00 Test Item Value Reference Range Interpretation Comments Creatinine Lvl (test code = Creatinine 0.94 0.50-1.40 Lvl) [place] [address]-08-26 08:22:00 Test Item Value Reference Range Interpretation Comments Sodium Lvl (test code = Sodium Lvl) 141 135-145 [place] [address]-08-26 08:22:00 Test Item Value Reference Range Interpretation Comments Potassium Lvl (test code = Potassium 4.6 3.5-5.1 Lvl) [place] [address]-08-26 08:22:00 Test Item Value Reference Range Interpretation Comments Chloride Lvl (test code = Chloride Lvl) 108 95-109 [place] 121732-08-26 08:22:00 Test Item Value Reference Range Interpretation Comments CO2 (test code = CO2) 31 24-32 [place] [address]-08-26 08:22:00 Test Item Value Reference Range Interpretation Comments Calcium Lvl (test code = Calcium Lvl) 9.2 8.5-10.5 [place] [address]-08-26 08:22:00 Test Item Value Reference Range Interpretation Comments AGAP (test code = AGAP) 6.6 10.0-20.0 [place] [address]-08-26 08:22:00 Test Item Value Reference Range Interpretation Comments eGFR (test code = eGFR) 89 [place] 121732-08-26 08:22:00 Test Item Value Reference Range Interpretation Comments Magnesium Lvl (test code = Magnesium 2.0 1.8-2.4 Lvl) [place] 939622-08-26 08:22:00 Test Item Value Reference Range Interpretation Comments WBC (test code = WBC) 3.7 3.7-10.4 [facility] HospitalEnykjqdVFMKHFNEUX3261-13-05 08:22:00 Test Item Value Reference Range Interpretation Comments RBC (test code = RBC) 2.80 4.70-6.10 [facility] HospitalAdwqtuaVLKIACPOSY7455-55-72 08:22:00 Test Item Value Reference Range Interpretation Comments Hgb (test code = Hgb) 8.9 14.0-18.0 [facility] HospitalUqhqpszLVRDQHPQAQ0591-40-52 08:22:00 Test Item Value Reference Range Interpretation Comments Hct (test code = Hct) 26.9 42.0-54.0 [facility] HospitalJzddoflBMIDRRUNPD5830-74-09 08:22:00 Test Item Value Reference Range Interpretation Comments MCV (test code = MCV) 96.1 80.0-94.0 [facility] HospitalFqujhddGIRTTQRZCV5220-69-89 08:22:00 Test Item Value Reference Range Interpretation Comments MCH (test code = MCH) 31.9 pg 27.0-31.0 [facility] HospitalWcmhkjkVRVVRWPFKK5704-45-53 08:22:00 Test Item Value Reference Range Interpretation Comments MCHC (test code = MCHC) 33.2 32.0-36.0 [facility] HospitalWwoziavWCIXQGEAUO3306-20-00 08:22:00 Test Item Value Reference Range Interpretation Comments RDW (test code = RDW) 17.8 11.5-14.5 [facility] HospitalYlsiszeOKMKCHCCVK8877-52-73 08:22:00 Test Item Value Reference Range Interpretation Comments Platelet (test code = Platelet) 120 133-450 [facility] HospitalItkklpnGDOOOSWUMF3531-55-04 08:22:00 Test Item Value Reference Range Interpretation Comments MPV (test code = MPV) 8.6 7.4-10.4 [place] 939622-08-26 08:22:00 Test Item Value Reference Range Interpretation Comments Segs (test code = Segs) 67.4 45.0-75.0 [place] 939622-08-26 08:22:00 Test Item Value Reference Range Interpretation Comments Lymphocytes (test code = Lymphocytes) 20.7 20.0-40.0 [facility] HospitalQluyrvpOFIALRQTJK3872-74-40 08:22:00 Test Item Value Reference Range Interpretation Comments Monocytes (test code = Monocytes) 7.5 2.0-12.0 [place] [address]-08-26 08:22:00 Test Item Value Reference Range Interpretation Comments Eosinophils (test code = 3.9 See_Comment [A utomated message] The Eosinophils) system which ge nerated this result tra nsmitted reference range : <=4.0. The reference r delano was not used to int erpret this result as normal/abnormal . [facility] HospitalOwbuueaNPOLMQCIZK0677-35-13 08:22:00 Test Item Value Reference Range Interpretation Comments Basophils (test code = 0.5 See_Comment [Aut omated message] The Basophils) system which ge nerated this result tra nsmitted reference range : <=1.0. The reference r delano was not used to int erpret this result as normal/abnormal . [facility] HospitalIcbhjnzGQYJGQXBGH8147-42-51 08:22:00 Test Item Value Reference Range Interpretation Comments Neutrophils # (test code = Neutrophils 2.5 1.5-8.1 #) [facility] HospitalKdxueeyTHOGITHVMQ6501-73-97 08:22:00 Test Item Value Reference Range Interpretation Comments Lymphocytes # (test code = Lymphocytes 0.8 1.0-5.5 #) [facility] HospitalLilxdlkYKZNKGTOGD9272-66-29 08:22:00 Test Item Value Reference Range Interpretation Comments Monocytes # (test code 0.3 See_Comment [Aut omated message] The = Monocytes #) system which generated this result tra nsmitted reference range : <=0.8. The reference r delano was not used to int erpret this result as normal/abnormal . [facility] HospitalQejqnqpQSFALNVFTE1494-42-93 08:22:00 Test Item Value Reference Range Interpretation Comments Eosinophils # (test code 0.1 See_Comment [A utomated message] The = Eosinophils #) system whic h generated this result tra nsmitted reference range : <=0.5. The reference r delano was not used to int erpret this result as normal/abnormal . [facility]2022-08-25 20:57:00 Test Item Value Reference Range Interpretation Comments Occult Bld Stl (test Negative (11/27/21 3:57 code = Occult Bld Stl) PM) [facility] HospitalChvuspaBAJWWRXYDY5243-55-81 15:22:00 Test Item Value Reference Range Interpretation Comments PT (test code = PT) 15.3 s 12.0-14.7 [facility]jabKFZIJBAHKH2453-55-82 15:22:00 Test Item Value Reference Range Interpretation Comments INR (test code = INR) 1.22 1 0.85-1.17 [facility]XGSOQRVQOH5677-92-71 15:22:00 Test Item Value Reference Range Interpretation Comments Vancomycin AUC (test code = Vancomycin 18.0 AUC) [place] 121732-08-25 08:16:00 Test Item Value Reference Range Interpretation Comments Glucose Lvl (test code = Glucose Lvl) 95 70-99 [place] 121732-08-25 08:16:00 Test Item Value Reference Range Interpretation Comments BUN (test code = BUN) 22 7-22 [place] 121732-08-25 08:16:00 Test Item Value Reference Range Interpretation Comments Creatinine Lvl (test code = Creatinine 1.48 0.50-1.40 Lvl) [place] 121732-08-25 08:16:00 Test Item Value Reference Range Interpretation Comments Sodium Lvl (test code = Sodium Lvl) 141 135-145 [place] 121732-08-25 08:16:00 Test Item Value Reference Range Interpretation Comments Potassium Lvl (test code = Potassium 4.3 3.5-5.1 Lvl) [place] 121732-08-25 08:16:00 Test Item Value Reference Range Interpretation Comments Chloride Lvl (test code = Chloride Lvl) 113 95-109 [place] 121732-08-25 08:16:00 Test Item Value Reference Range Interpretation Comments CO2 (test code = CO2) 27 24-32 [place] 121732-08-25 08:16:00 Test Item Value Reference Range Interpretation Comments AGAP (test code = AGAP) 5.3 10.0-20.0 [place] 121732-08-25 08:16:00 Test Item Value Reference Range Interpretation Comments Calcium Lvl (test code = Calcium Lvl) 7.6 8.5-10.5 [place] 121732-08-25 08:16:00 Test Item Value Reference Range Interpretation Comments eGFR (test code = eGFR) 52 [place] 121732-08-25 08:16:00 Test Item Value Reference Range Interpretation Comments Magnesium Lvl (test code = Magnesium 1.9 1.8-2.4 Lvl) [facility] HospitalWtsztdzIMSHVJSZSQ3095-85-43 08:16:00 Test Item Value Reference Range Interpretation Comments WBC (test code = WBC) 4.4 3.7-10.4 [facility] HospitalLbyhvbkMVMZMDSOBU3239-44-14 08:16:00 Test Item Value Reference Range Interpretation Comments RBC (test code = RBC) 2.54 4.70-6.10 [facility] HospitalCgbhawaQMJJRDUQSF3673-04-30 08:16:00 Test Item Value Reference Range Interpretation Comments Hgb (test code = Hgb) 8.0 14.0-18.0 [facility] HospitalCrvgfvkZJPICYEWWB9734-40-21 08:16:00 Test Item Value Reference Range Interpretation Comments Hct (test code = Hct) 24.7 42.0-54.0 [facility] HospitalYczydtiRNMDRLBHCE1568-79-56 08:16:00 Test Item Value Reference Range Interpretation Comments MCV (test code = MCV) 97.0 80.0-94.0 [facility] HospitalDokxdfiGMJZBTEKSD6967-73-38 08:16:00 Test Item Value Reference Range Interpretation Comments MCH (test code = MCH) 31.4 pg 27.0-31.0 [facility] HospitalAkibtfcBRUGSWFOBL9314-57-19 08:16:00 Test Item Value Reference Range Interpretation Comments MCHC (test code = MCHC) 32.4 32.0-36.0 [facility] HospitalWtjgasgOOGVWYOBMR2683-71-70 08:16:00 Test Item Value Reference Range Interpretation Comments RDW (test code = RDW) 18.3 11.5-14.5 [facility] HospitalHnxveeaMGYIFKAOPN4833-78-12 08:16:00 Test Item Value Reference Range Interpretation Comments Platelet (test code = Platelet) 114 133-450 [facility] HospitalYvxbwlkFMWCLMFUWE4449-40-22 08:16:00 Test Item Value Reference Range Interpretation Comments MPV (test code = MPV) 8.2 7.4-10.4 [facility] HospitalCikkhzaPHEEENATSO9728-34-94 08:16:00 Test Item Value Reference Range Interpretation Comments Segs (test code = Segs) 65.5 45.0-75.0 [facility] HospitalPsazxhbJUUQIIFPGK6830-96-57 08:16:00 Test Item Value Reference Range Interpretation Comments Lymphocytes (test code = Lymphocytes) 22.5 20.0-40.0 [place] [address]-08-25 08:16:00 Test Item Value Reference Range Interpretation Comments Monocytes (test code = Monocytes) 8.0 2.0-12.0 [facility] HospitalZbpuoaxESWPHWHCPC7985-98-88 08:16:00 Test Item Value Reference Range Interpretation Comments Eosinophils (test code = 3.7 See_Comment [A utomated message] The Eosinophils) system which ge nerated this result tra nsmitted reference range : <=4.0. The reference r delano was not used to int erpret this result as normal/abnormal . [facility] HospitalPeoyeszXVLZZMFGDH5326-87-32 08:16:00 Test Item Value Reference Range Interpretation Comments Basophils (test code = 0.3 See_Comment [Aut omated message] The Basophils) system which ge nerated this result tra nsmitted reference range : <=1.0. The reference r delano was not used to int erpret this result as normal/abnormal . [facility] HospitalKoerctnFYEHQXESWL8906-71-18 08:16:00 Test Item Value Reference Range Interpretation Comments Neutrophils # (test code = Neutrophils 2.9 1.5-8.1 #) [facility] HospitalZvccrmiIIYULTGZRB4379-34-49 08:16:00 Test Item Value Reference Range Interpretation Comments Lymphocytes # (test code = Lymphocytes 1.0 1.0-5.5 #) [facility] HospitalIrvooamSARXMJMFJQ7916-29-78 08:16:00 Test Item Value Reference Range Interpretation Comments Monocytes # (test code 0.4 See_Comment [Aut omated message] The = Monocytes #) system which generated this result tra nsmitted reference range : <=0.8. The reference r delano was not used to int erpret this result as normal/abnormal . [facility] HospitalZyhlrfwSCKKTIRHKL0809-05-71 08:16:00 Test Item Value Reference Range Interpretation Comments Eosinophils # (test code 0.2 See_Comment [A utomated message] The = Eosinophils #) system whic h generated this result tra nsmitted reference range : <=0.5. The reference r delano was not used to int erpret this result as normal/abnormal . [facility]anoXkedybkFEEQSAZYUB4329-37-44 02:48:00 Test Item Value Reference Range Interpretation Comments Vancomycin AUC (test code = Vancomycin 35.9 AUC) [facility] - [id number] 22:23:00 Test Item Value Reference Range Interpretation Comments MRSA by PCR (test Positive 1*ABN*(11/26/21 code = MRSA by PCR) 5:23 PM) [facility] 21:17:00 Test Item Value Reference Range Interpretation Comments Ammonia (test code = Ammonia) 31.0 [facility] [id number] 19:32:00 Test Item Value Reference Range Interpretation Comments UA WBC (test code = 2 See_Comment [Automa glo message] The UA WBC) system which ge nerated this result transmit glo reference range : <=5. The reference range was not used to interpr et this result as rita l/abnormal. [facility] [id number] 19:32:00 Test Item Value Reference Range Interpretation Comments UA RBC (test code = no gt See_Comment [Automa glo message] The UA RBC) system which ge nerated this result transmit glo reference range : <=2. The reference range was not used to interpr et this result as rita l/abnormal. [facility] [id number] 19:32:00 Test Item Value Reference Range Interpretation Comments UA Bacteria (test code = UA Occasional /HPF Bacteria) [facility] [id number] 19:32:00 Test Item Value Reference Range Interpretation Comments UA Mucus (test code = UA Mucus) Few /LPF [facility] [id number] 19:32:00 Test Item Value Reference Range Interpretation Comments UA Hyal Cast (test 4 See_Comment [Automat ed message] The code = UA Hyal Cast) system which generated this result transmit glo reference range : <=2. The reference range was not used to interpr et this result as rita l/abnormal. [facility] [id number] 19:32:00 Test Item Value Reference Range Interpretation Comments UA Color (test code = Yellow *NA*(11/26/21 UA Color) 2:32 PM) [facility] [id number] 19:32:00 Test Item Value Reference Range Interpretation Comments UA Turbidity (test code Slight Cloudy = UA Turbidity) (11/26/21 2:32 PM) [facility] [id number] 19:32:00 Test Item Value Reference Range Interpretation Comments UA Spec Grav (test >=1.030 *ABN*(11/26/21 code = UA Spec Grav) 2:32 PM) [facility] [id number] 19:32:00 Test Item Value Reference Range Interpretation Comments UA pH (test code = UA pH) 5.0 1 5.0-8.0 [facility] [id number] 19:32:00 Test Item Value Reference Range Interpretation Comments UA Protein (test code = Trace *ABN*(11/26/21 UA Protein) 2:32 PM) [facility] [id number] 19:32:00 Test Item Value Reference Range Interpretation Comments UA Glucose (test code Negative (11/26/21 2:32 = UA Glucose) PM) [facility] AND [id number] 19:32:00 Test Item Value Reference Range Interpretation Comments UA Ketones (test code = Trace *ABN*(11/26/21 UA Ketones) 2:32 PM) [facility] AND [id number] 19:32:00 Test Item Value Reference Range Interpretation Comments UA Bili (test code = Small *ABN*(11/26/21 UA Bili) 2:32 PM) [facility] AND [id number] 19:32:00 Test Item Value Reference Range Interpretation Comments UA Blood (test code = Negative (11/26/21 2:32 UA Blood) PM) [facility] AND [id number] 19:32:00 Test Item Value Reference Range Interpretation Comments UA Urobilinogen (test code = UA 0.2 0.1-1.0 Urobilinogen) [facility] AND [id number] 19:32:00 Test Item Value Reference Range Interpretation Comments UA Nitrite (test code Negative (11/26/21 2:32 = UA Nitrite) PM) [facility] [id number] 19:32:00 Test Item Value Reference Range Interpretation Comments UA Leuk Est (test Negative (11/26/21 2:32 code = UA Leuk Est) PM) [facility] [id number] 19:32:00 Test Item Value Reference Range Interpretation Comments UA Sq Epi (test code = None Seen (11/26/21 2:32 UA Sq Epi) PM) [employer] [id number] 17:08:00 Test Item Value Reference Range Interpretation Comments ABO/Rh (test code = ABO/Rh) B POS [employer] [id number] 17:08:00 Test Item Value Reference Range Interpretation Comments Antibody Scrn (test Negative (11/26/21 code = Antibody Scrn) 12:08 PM) [employer] [id number] 17:04:00 Test Item Value Reference Range Interpretation Comments RBC product (test code Product available = RBC product) 5(11/26/21 12:04 PM) [employer] [id number] 16:43:00 Test Item Value Reference Range Interpretation Comments Total CK (test code = Total CK) 29 12-191 [facility] [employer] [id number] 16:43:00 Test Item Value Reference Range Interpretation Comments HS Troponin I (test code = HS Troponin 9 I) [facility] DDVTECH2022-08-24 16:43:00 Test Item Value Reference Range Interpretation Comments BNP (test code = BNP) 16 [employer] [id number] 16:43:00 Test Item Value Reference Range Interpretation Comments B/C Ratio (test code = B/C Ratio) 9 1 6-25 [employer] [id number] 16:43:00 Test Item Value Reference Range Interpretation Comments Total Protein (test code = Total 5.2 6.4-8.4 Protein) [employer] [id number] 16:43:00 Test Item Value Reference Range Interpretation Comments Albumin Lvl (test code = Albumin Lvl) 1.9 3.5-5.0 [employer] [id number] 16:43:00 Test Item Value Reference Range Interpretation Comments Globulin (test code = Globulin) 3.3 2.7-4.2 [employer] [id number] 16:43:00 Test Item Value Reference Range Interpretation Comments A/G Ratio (test code = A/G Ratio) 0.6 1 0.7-1.6 [employer] [id number] 16:43:00 Test Item Value Reference Range Interpretation Comments ALT (test code = ALT) 12 See_Comment [Auto mated message] The system which ge nerated this result transmit glo reference range : <=65. The reference range was not used to interpr et this result as rita l/abnormal. [facility] [id number] 16:43:00 Test Item Value Reference Range Interpretation Comments AST (test code = AST) 8 See_Comment [Auto mated message] The system which ge nerated this result transmit glo reference range : <=37. The reference range was not used to interpr et this result as rita l/abnormal. [facility] [id number] 16:43:00 Test Item Value Reference Range Interpretation Comments Alk Phos (test code = Alk Phos) 58 39-136 [facility] [id number] 16:43:00 Test Item Value Reference Range Interpretation Comments Bili Total (test code = Bili Total) 0.3 0.2-1.3 [facility] [id number] 16:43:00 Test Item Value Reference Range Interpretation Comments Lactic Acid Lvl (test code = Lactic 0.8 0.5-2.2 Acid Lvl) [facility] [id number] 16:43:00 Test Item Value Reference Range Interpretation Comments Ammonia (test code = Ammonia) 16.0 [facility] [id number] 16:43:00 Test Item Value Reference Range Interpretation Comments Procalcitonin Lvl (test 0.72 See_Comment [Au tomated message] code = Procalcitonin Lvl) Th e system which generated this result transmitted ref erence range: <=0.10. The reference range was not used to interpr et this result as normal/abnormal . [facility]VqtprxjUODDBFGCCD4446-22-47 16:43:00 Test Item Value Reference Range Interpretation Comments PT (test code = PT) 20.7 s 12.0-14.7 [facility]anoMwxhfjaDZWYJLQWHO1093-95-80 16:43:00 Test Item Value Reference Range Interpretation Comments INR (test code = INR) 1.80 1 0.85-1.17 [facility]anoAvxthneILSPGCKTMC3858-90-28 16:43:00 Test Item Value Reference Range Interpretation Comments PTT (test code = PTT) 38.8 s 22.9-35.8 [facility]anoKhbaumzGKVNPGGXZP9457-59-20 16:43:00 Test Item Value Reference Range Interpretation Comments RBC Morph (test code = Normal (11/26/21 11:43 RBC Morph) AM) [facility]anoMrcryeuERABHVQQID3509-37-14 16:43:00 Test Item Value Reference Range Interpretation Comments Plt Morph (test code = Normal (11/26/21 11:43 Plt Morph) AM) [facility]anoKggffuzZFJGQZJAKQ7216-28-40 16:43:00 Test Item Value Reference Range Interpretation Comments Coronavirus (COVID-19) Not Detected (11/26/21 NASIMA (test code = 11:43 AM) Coronavirus (COVID-19) NASIMA) [facility] GLUCOSE (AUTOMATED)2021-11-22 16:25:59 Test Item Value Reference Range Interpretation Comments POCT GLU (test code = 2987174212) 195 mg/dL 70-110 H Lab Interpretation (test code = Abnormal 59649-0) [facility] GLUCOSE (AUTOMATED)2021-11-21 22:02:41 Test Item Value Reference Range Interpretation Comments POCT GLU (test code = 6951668098) 122 mg/dL 70-110 H Lab Interpretation (test code = Abnormal 59998-8) [facility] GLUCOSE (AUTOMATED)2021-11-21 16:54:12 Test Item Value Reference Range Interpretation Comments POCT GLU (test code = 1332540602) 178 mg/dL 70-110 H Lab Interpretation (test code = Abnormal 07575-1) [facility] GLUCOSE (AUTOMATED)2021-11-21 14:05:37 Test Item Value Reference Range Interpretation Comments POCT GLU (test code = 7838019072) 145 mg/dL 70-110 H Lab Interpretation (test code = Abnormal 53791-3) [facility] GLUCOSE (AUTOMATED)2021-11-20 22:15:14 Test Item Value Reference Range Interpretation Comments POCT GLU (test code = 3280540732) 129 mg/dL 70-110 H Lab Interpretation (test code = Abnormal 05853-8) [facility] GLUCOSE (AUTOMATED)2021-11-20 17:18:10 Test Item Value Reference Range Interpretation Comments POCT GLU (test code = 8936990299) 185 mg/dL 70-110 H Lab Interpretation (test code = Abnormal 40594-1) [facility] GLUCOSE (AUTOMATED)2021-11-20 13:09:16 Test Item Value Reference Range Interpretation Comments POCT GLU (test code = 9665312071) 146 mg/dL 70-110 H Lab Interpretation (test code = Abnormal 67468-8) [facility] GLUCOSE (AUTOMATED)2021-11-19 22:17:47 Test Item Value Reference Range Interpretation Comments POCT GLU (test code = 1169554570) 127 mg/dL 70-110 H Lab Interpretation (test code = Abnormal 27841-8) [facility] GLUCOSE (AUTOMATED)2021-11-19 17:15:36 Test Item Value Reference Range Interpretation Comments POCT GLU (test code = 5192349829) 165 mg/dL 70-110 H Lab Interpretation (test code = Abnormal 57461-9) [facility] GLUCOSE (AUTOMATED)2021-11-19 13:22:06 Test Item Value Reference Range Interpretation Comments POCT GLU (test code = 8006608718) 167 mg/dL 70-110 H Lab Interpretation (test code = Abnormal 98324-5) [facility] GLUCOSE (AUTOMATED)2021-11-18 21:43:54 Test Item Value Reference Range Interpretation Comments POCT GLU (test code = 3541761861) 117 mg/dL 70-110 H Lab Interpretation (test code = Abnormal 96818-5) [facility] GLUCOSE (AUTOMATED)2021-11-18 17:56:38 Test Item Value Reference Range Interpretation Comments POCT GLU (test code = 4010625047) 196 mg/dL 70-110 H Lab Interpretation (test code = Abnormal 14940-9) [facility] METABOLIC PANEL (NA, K, CL, CO2, GLUCOSE, BUN, CREATININE, CA)2021-11-18 10:53:46 Test Item Value Reference Range Interpretation Comments NA (test code = 137 mmol/L 135-145 1545983277) K (test code = 4.0 mmol/L 3.5-5 1917483100) CL (test code = 101 mmol/L 98-108 4132813972) CO2 TOTAL (test code = 32 mmol/L 23-31 H 3592967342) AGAP (test code = 2-16 1355774501) BUN (test code = 16 mg/dL 7-23 2040301179) GLUCOSE (test code = 122 mg/dL 70-110 H 0457442730) CREATININE (test code = 0.94 mg/dL 0.6-1.25 8647843156) CALCIUM (test code = 9.8 mg/dL 8.6-10.6 9306814394) eGFR (test code = mL/min/1.73m2 0150794913) MEG (test code = MEG) Association of Glomerular Filtration Rate (GFR) and Staging of Kidney Disease* + --+ --+ ------+| GFR (mL/min/1.73 m2) ?| With Kidney Damage ?| ?Without Kidney Damage+ --------+ --------+ +| ?>90 ?| ?Stage one ?| ? Normal ?+ ---+ ---+ -------+| ?60-89 ?| ?Stage two ?| ? Decreased GFR ? + --+ --+ ------+| ?30-59 ?| ?Stage three ?| ? Stage three ? + --+ --+ ------+| ?15-29 ?| ?Stage four ? | ? Stage four ?+ ---+ ---+ -------+| ?<15 (or dialysis) ? ?| ?Stage five ? | ? Stage five ?+ ---+ ---+ -------+ *Each stage assumes the associated GFR level has been in effect for at least three months. ?Stages 1 to 5, with or without kidney disease, indicate chronic kidney disease. Notes: Determination of stages one and two (with eGFR >59mL/min/1.73 m2) requires estimation of kidney damage for at least three months as defined by structural or functional abnormalities of the kidney, manifested by either:Pathological abnormalities or Markers of kidney damage (including abnormalities in the composition of the blood or urine or abnormalities in imaging tests). Lab Interpretation Abnormal (test code = 80143-2) [facility] 10:53:46 Test Item Value Reference Range Interpretation Comments MAGNESIUM (test code = 9692494371) 2.0 mg/dL 1.7-2.4 Lab Interpretation (test code = Normal 59920-8) [facility] WITH [id number] 10:18:00 Test Item Value Reference Range Interpretation Comments WBC (test code = See_Comment [Automated 6690-2) message] The sy stem which generated this result transmitted reference range : 4.20 - 10.70 10*3/?L. The reference range was not used to interpret this result as normal/abnormal . RBC (test code = See_Comment L [Automated 789-8) message] The sy stem which generated this result transmitted reference range : 4.26 - 5.52 10*6/?L. The reference range was not used to interpret this result as normal/abnormal . HGB (test code = 9.2 g/dL 12.2-16.4 L 718-7) HCT (test code = 29.3 % 38.4-49.3 L 4544-3) MCV (test code = 99.0 fL 81.7-95.6 H 787-2) MCH (test code = 31.1 pg 26.1-32.7 785-6) MCHC (test code = 31.4 g/dL 31.2-35 786-4) RDW-SD (test code = 51.6 fL 38.5-51.6 79689-7) RDW-CV (test code = 14.1 % 12.1-15.4 788-0) PLT (test code = See_Comment L [Automated 777-3) message] The sy stem which generated this result transmitted reference range : 150 - 328 10*3/ ?L. The reference r delano was not used to interpret this result as normal/abnormal . MPV (test code = 10.4 fL 9.8-13 26402-5) NRBC/100 WBC (test See_Comment [Automat ed code = 9254482544) message] The system which generated this result transmitted reference range : 0.0 - 10.0 /100 WBCs. The refer ence range was not u sed to interpret th is result as normal/abnormal . NRBC x10^3 (test code See_Comment [Auto mated = 1162924546) message] The s ystem which generated this result transmitted reference range : 10*3/?L. The reference range was not used to interpret this result as normal/abnormal . GRAN MAT (NEUT) % 71.7 % (test code = 770-8) IMM GRAN % (test code 0.70 % = 8040448169) LYMPH % (test code = 15.9 % 736-9) MONO % (test code = 9.3 % 5905-5) EOS % (test code = 2.1 % 713-8) BASO % (test code = 0.3 % 706-2) GRAN MAT x10^3(ANC) 4.34 10*3/uL 1.99-6.95 (test code = 9567530153) IMM GRAN x10^3 (test 0.04 10*3/uL 0-0.06 code = 9094189838) LYMPH x10^3 (test code 0.96 10*3/uL 1.09-3.23 L = 731-0) MONO x10^3 (test code 0.56 10*3/uL 0.36-1.02 = 742-7) EOS x10^3 (test code = 0.13 10*3/uL 0.06-0.53 711-2) BASO x10^3 (test code 0.01-0.09 = 704-7) Lab Interpretation Abnormal (test code = 71299-0) [facility] GLUCOSE (AUTOMATED)2021-11-18 01:35:02 Test Item Value Reference Range Interpretation Comments POCT GLU (test code = 6289803314) 128 mg/dL 70-110 H Lab Interpretation (test code = Abnormal 24306-5) [facility] GLUCOSE (AUTOMATED)2021-11-17 21:57:44 Test Item Value Reference Range Interpretation Comments POCT GLU (test code = 6474966005) 140 mg/dL 70-110 H Lab Interpretation (test code = Abnormal 52434-5) [facility] GLUCOSE (AUTOMATED)2021-11-17 17:01:57 Test Item Value Reference Range Interpretation Comments POCT GLU (test code = 3195363457) 171 mg/dL 70-110 H Lab Interpretation (test code = Abnormal 18955-9) [facility] GLUCOSE (AUTOMATED)2021-11-17 12:58:25 Test Item Value Reference Range Interpretation Comments POCT GLU (test code = 2852977918) 145 mg/dL 70-110 H Lab Interpretation (test code = Abnormal 00371-3) [facility] GLUCOSE (AUTOMATED)2021-11-17 01:40:52 Test Item Value Reference Range Interpretation Comments POCT GLU (test code = 0849391507) 159 mg/dL 70-110 H Lab Interpretation (test code = Abnormal 20173-3) [facility] GLUCOSE (AUTOMATED)2021-11-16 21:30:54 Test Item Value Reference Range Interpretation Comments POCT GLU (test code = 4139894102) 172 mg/dL 70-110 H Lab Interpretation (test code = Abnormal 86033-6) [facility] GLUCOSE (AUTOMATED)2021-11-16 16:51:21 Test Item Value Reference Range Interpretation Comments POCT GLU (test code = 3186360439) 167 mg/dL 70-110 H Lab Interpretation (test code = Abnormal 48958-6) [facility] GLUCOSE (AUTOMATED)2021-11-16 12:35:35 Test Item Value Reference Range Interpretation Comments POCT GLU (test code = 6369728643) 147 mg/dL 70-110 H Lab Interpretation (test code = Abnormal 15336-6) [facility] GLUCOSE (AUTOMATED)2021-11-16 01:27:51 Test Item Value Reference Range Interpretation Comments POCT GLU (test code = 2426888576) 155 mg/dL 70-110 H Lab Interpretation (test code = Abnormal 02078-5) [facility] GLUCOSE (AUTOMATED)2021-11-15 21:43:53 Test Item Value Reference Range Interpretation Comments POCT GLU (test code = 4357419518) 170 mg/dL 70-110 H Lab Interpretation (test code = Abnormal 97534-8) [facility] GLUCOSE (AUTOMATED)2021-11-15 16:40:18 Test Item Value Reference Range Interpretation Comments POCT GLU (test code = 4308900587) 157 mg/dL 70-110 H Lab Interpretation (test code = Abnormal 57741-0) [facility] GLUCOSE (AUTOMATED)2021-11-15 12:48:01 Test Item Value Reference Range Interpretation Comments POCT GLU (test code = 8939930998) 132 mg/dL 70-110 H Lab Interpretation (test code = Abnormal 01978-7) [facility] METABOLIC PANEL (NA, K, CL, CO2, GLUCOSE, BUN, CREATININE, CA)2021-11-15 09:24:18 Test Item Value Reference Range Interpretation Comments NA (test code = 138 mmol/L 135-145 8685497885) K (test code = 4.0 mmol/L 3.5-5 2547766929) CL (test code = 102 mmol/L 98-108 2460800772) CO2 TOTAL (test code = 31 mmol/L 23-31 5281193184) AGAP (test code = 2-16 8599534616) BUN (test code = 29 mg/dL 7-23 H 6026424590) GLUCOSE (test code = 107 mg/dL 70-110 7579177876) CREATININE (test code = 1.15 mg/dL 0.6-1.25 8014161199) CALCIUM (test code = 9.6 mg/dL 8.6-10.6 4960014084) eGFR (test code = mL/min/1.73m2 6617572492) MEG (test code = MEG) Association of Glomerular Filtration Rate (GFR) and Staging of Kidney Disease* + --+ --+ ------+| GFR (mL/min/1.73 m2) ?| With Kidney Damage ?| ?Without Kidney Damage+ --------+ --------+ +| ?>90 ?| ?Stage one ?| ? Normal ?+ ---+ ---+ -------+| ?60-89 ?| ?Stage two ?| ? Decreased GFR ? + --+ --+ ------+| ?30-59 ?| ?Stage three ?| ? Stage three ? + --+ --+ ------+| ?15-29 ?| ?Stage four ? | ? Stage four ?+ ---+ ---+ -------+| ?<15 (or dialysis) ? ?| ?Stage five ? | ? Stage five ?+ ---+ ---+ -------+ *Each stage assumes the associated GFR level has been in effect for at least three months. ?Stages 1 to 5, with or without kidney disease, indicate chronic kidney disease. Notes: Determination of stages one and two (with eGFR >59mL/min/1.73 m2) requires estimation of kidney damage for at least three months as defined by structural or functional abnormalities of the kidney, manifested by either:Pathological abnormalities or Markers of kidney damage (including abnormalities in the composition of the blood or urine or abnormalities in imaging tests). Lab Interpretation Abnormal (test code = 92127-4) [facility] 09:24:18 Test Item Value Reference Range Interpretation Comments MAGNESIUM (test code = 4109065738) 2.2 mg/dL 1.7-2.4 Lab Interpretation (test code = Normal 38945-0) [facility] WITH [id number] 09:00:56 Test Item Value Reference Range Interpretation Comments WBC (test code = See_Comment H [Automated 6690-2) message] The system which generated this result transmit glo reference range : 4.20 - 10.70 10*3/?L. The reference range was not used to interpret this result as normal/abnormal . RBC (test code = See_Comment L [Automated 789-8) message] The system which generated this result transmit glo reference range : 4.26 - 5.52 10*6/?L. The reference range was not used to interpret this result as normal/abnormal . HGB (test code = 10.0 g/dL 12.2-16.4 L 718-7) HCT (test code = 31.9 % 38.4-49.3 L 4544-3) MCV (test code = 100.6 fL 81.7-95.6 H 787-2) MCH (test code = 31.5 pg 26.1-32.7 785-6) MCHC (test code = 31.3 g/dL 31.2-35 786-4) RDW-SD (test code = 52.4 fL 38.5-51.6 H 06382-5) RDW-CV (test code = 14.1 % 12.1-15.4 788-0) PLT (test code = See_Comment [Automated 777-3) message] The system which generated this result transmit glo reference range : 150 - 328 10*3/ ?L. The reference range was not u sed to interpret th is result as normal/abnormal . MPV (test code = 10.8 fL 9.8-13 62264-1) NRBC/100 WBC (test See_Comment [Automat ed code = 3071526564) message] The system which generated this result transmit glo reference range : 0.0 - 10.0 /100 WBCs. The reference range was not used to interpret this result as normal/abnormal . NRBC x10^3 (test code See_Comment [Auto mated = 0369990969) message] The system which generated this result transmit glo reference range : 10*3/?L. The reference range was not used to interpret this result as normal/abnormal . GRAN MAT (NEUT) % 83.4 % (test code = 770-8) IMM GRAN % (test code 0.40 % = 9926486364) LYMPH % (test code = 10.6 % 736-9) MONO % (test code = 4.8 % 5905-5) EOS % (test code = 0.7 % 713-8) BASO % (test code = 0.1 % 706-2) GRAN MAT x10^3(ANC) 11.19 10*3/uL 1.99-6.95 H (test code = 7716467216) IMM GRAN x10^3 (test 0.05 10*3/uL 0-0.06 code = 3665573133) LYMPH x10^3 (test code 1.42 10*3/uL 1.09-3.23 = 731-0) MONO x10^3 (test code 0.65 10*3/uL 0.36-1.02 = 742-7) EOS x10^3 (test code = 0.10 10*3/uL 0.06-0.53 711-2) BASO x10^3 (test code 0.01-0.09 = 704-7) Lab Interpretation Abnormal (test code = 97250-2) [facility] GLUCOSE (AUTOMATED)2021-11-14 21:55:55 Test Item Value Reference Range Interpretation Comments POCT GLU (test code = 4107014567) 122 mg/dL 70-110 H Lab Interpretation (test code = Abnormal 23237-9) [facility] GLUCOSE (AUTOMATED)2021-11-14 16:50:44 Test Item Value Reference Range Interpretation Comments POCT GLU (test code = 3704849831) 157 mg/dL 70-110 H Lab Interpretation (test code = Abnormal 09335-5) [facility] GLUCOSE (AUTOMATED)2021-11-14 12:55:21 Test Item Value Reference Range Interpretation Comments POCT GLU (test code = 8961604553) 138 mg/dL 70-110 H Lab Interpretation (test code = Abnormal 35544-4) [facility] GLUCOSE (AUTOMATED)2021-11-13 22:09:59 Test Item Value Reference Range Interpretation Comments POCT GLU (test code = 3626017910) 141 mg/dL 70-110 H Lab Interpretation (test code = Abnormal 93569-4) [facility] GLUCOSE (AUTOMATED)2021-11-13 18:14:39 Test Item Value Reference Range Interpretation Comments POCT GLU (test code = 1405069764) 175 mg/dL 70-110 H Lab Interpretation (test code = Abnormal 86910-6) [facility] GLUCOSE (AUTOMATED)2021-11-12 17:46:33 Test Item Value Reference Range Interpretation Comments POCT GLU (test code = 0881865986) 186 mg/dL 70-110 H Lab Interpretation (test code = Abnormal 92684-9) [facility] GLUCOSE (AUTOMATED)2021-11-12 10:58:23 Test Item Value Reference Range Interpretation Comments POCT GLU (test code = 8543328457) 135 mg/dL 70-110 H Lab Interpretation (test code = Abnormal 34371-9) [facility] GLUCOSE (AUTOMATED)2021-11-12 04:27:49 Test Item Value Reference Range Interpretation Comments POCT GLU (test code = 6807343805) 89 mg/dL 70-110 Lab Interpretation (test code = Normal 44511-4) [facility] GLUCOSE (AUTOMATED)2021-11-11 21:18:59 Test Item Value Reference Range Interpretation Comments POCT GLU (test code = 0354361912) 150 mg/dL 70-110 H Lab Interpretation (test code = Abnormal 71961-0) [facility] GLUCOSE (AUTOMATED)2021-11-11 17:08:31 Test Item Value Reference Range Interpretation Comments POCT GLU (test code = 3569353823) 147 mg/dL 70-110 H Lab Interpretation (test code = Abnormal 30008-5) [facility] METABOLIC PANEL (NA, K, CL, CO2, GLUCOSE, BUN, CREATININE, CA)2021-11-11 11:31:52 Test Item Value Reference Range Interpretation Comments NA (test code = 141 mmol/L 135-145 0748936209) K (test code = 4.8 mmol/L 3.5-5 3815575628) CL (test code = 107 mmol/L 98-108 5130658179) CO2 TOTAL (test code = 32 mmol/L 23-31 H 4468239598) AGAP (test code = 2-16 9768571355) BUN (test code = 53 mg/dL 7-23 H 2282953181) GLUCOSE (test code = 168 mg/dL 70-110 H 7071462792) CREATININE (test code = 1.10 mg/dL 0.6-1.25 1409917242) CALCIUM (test code = 9.3 mg/dL 8.6-10.6 9589450590) eGFR (test code = mL/min/1.73m2 5494494145) MEG (test code = MEG) Association of Glomerular Filtration Rate (GFR) and Staging of Kidney Disease* + --+ --+ ------+| GFR (mL/min/1.73 m2) ?| With Kidney Damage ?| ?Without Kidney Damage+ --------+ --------+ +| ?>90 ?| ?Stage one ?| ? Normal ?+ ---+ ---+ -------+| ?60-89 ?| ?Stage two ?| ? Decreased GFR ? + --+ --+ ------+| ?30-59 ?| ?Stage three ?| ? Stage three ? + --+ --+ ------+| ?15-29 ?| ?Stage four ? | ? Stage four ?+ ---+ ---+ -------+| ?<15 (or dialysis) ? ?| ?Stage five ? | ? Stage five ?+ ---+ ---+ -------+ *Each stage assumes the associated GFR level has been in effect for at least three months. ?Stages 1 to 5, with or without kidney disease, indicate chronic kidney disease. Notes: Determination of stages one and two (with eGFR >59mL/min/1.73 m2) requires estimation of kidney damage for at least three months as defined by structural or functional abnormalities of the kidney, manifested by either:Pathological abnormalities or Markers of kidney damage (including abnormalities in the composition of the blood or urine or abnormalities in imaging tests). Lab Interpretation Abnormal (test code = 27928-2) [facility]2021-11-11 10:41:56 Test Item Value Reference Range Interpretation Comments POCT GLU (test code = 3471918796) 149 mg/dL 70-110 H Lab Interpretation (test code = Abnormal 67023-4) [facility] Test Item Value Reference Range Interpretation Comments MAGNESIUM (test code = 6250020794) 2.9 mg/dL 1.7-2.4 H Lab Interpretation (test code = Abnormal 49575-6) [facility] WITH [id number] 09:07:36 Test Item Value Reference Range Interpretation Comments WBC (test code = See_Comment [Automated 6690-2) message] The sy stem which generated this result transmitted reference range : 4.20 - 10.70 10*3/?L. The reference range was not used to interpret this result as normal/abnormal . RBC (test code = See_Comment L [Automated 789-8) message] The sy stem which generated this result transmitted reference range : 4.26 - 5.52 10*6/?L. The reference range was not used to interpret this result as normal/abnormal . HGB (test code = 11.0 g/dL 12.2-16.4 L 718-7) HCT (test code = 34.2 % 38.4-49.3 L 4544-3) MCV (test code = 98.3 fL 81.7-95.6 H 787-2) MCH (test code = 31.6 pg 26.1-32.7 785-6) MCHC (test code = 32.2 g/dL 31.2-35 786-4) RDW-SD (test code = 53.3 fL 38.5-51.6 H 60472-8) RDW-CV (test code = 14.8 % 12.1-15.4 788-0) PLT (test code = See_Comment [Automated 777-3) message] The sy stem which generated this result transmitted reference range : 150 - 328 10*3/ ?L. The reference r delano was not used to interpret this result as normal/abnormal . MPV (test code = 10.3 fL 9.8-13 10211-2) NRBC/100 WBC (test See_Comment [Automat ed code = 5281693845) message] The system which generated this result transmitted reference range : 0.0 - 10.0 /100 WBCs. The refer ence range was not u sed to interpret th is result as normal/abnormal . NRBC x10^3 (test code See_Comment [Auto mated = 2247636906) message] The s ystem which generated this result transmitted reference range : 10*3/?L. The reference range was not used to interpret this result as normal/abnormal . GRAN MAT (NEUT) % 77.4 % (test code = 770-8) IMM GRAN % (test code 0.70 % = 6028691411) LYMPH % (test code = 14.4 % 736-9) MONO % (test code = 7.1 % 5905-5) EOS % (test code = 0.3 % 713-8) BASO % (test code = 0.1 % 706-2) GRAN MAT x10^3(ANC) 5.57 10*3/uL 1.99-6.95 (test code = 2712204074) IMM GRAN x10^3 (test 0.05 10*3/uL 0-0.06 code = 4170556236) LYMPH x10^3 (test code 1.04 10*3/uL 1.09-3.23 L = 731-0) MONO x10^3 (test code 0.51 10*3/uL 0.36-1.02 = 742-7) EOS x10^3 (test code = 0.06-0.53 L 711-2) BASO x10^3 (test code 0.01-0.09 = 704-7) Lab Interpretation Abnormal (test code = 79050-8) [facility] GLUCOSE (AUTOMATED)2021-11-11 04:50:14 Test Item Value Reference Range Interpretation Comments POCT GLU (test code = 4708709514) 142 mg/dL 70-110 H Lab Interpretation (test code = Abnormal 30781-2) [facility] GLUCOSE (AUTOMATED)2021-11-10 22:55:23 Test Item Value Reference Range Interpretation Comments POCT GLU (test code = 3053921986) 194 mg/dL 70-110 H Lab Interpretation (test code = Abnormal 83150-1) [facility] GLUCOSE (AUTOMATED)2021-11-10 17:33:39 Test Item Value Reference Range Interpretation Comments POCT GLU (test code = 7493422967) 203 mg/dL 70-110 H Lab Interpretation (test code = Abnormal 51636-2) [facility] Arterial Blood Gas.2021-11-10 15:40:34 Test Item Value Reference Range Interpretation Comments PH (test code = 2) 7.35-7.45 PCO2 (test code = See_Comment [Automate d message] 7527605316) The system [employer] generated this result transmitted ref erence range: 35 - 45 mmHg. The reference r delano was not used to interpret this result as normal/abnor mal. PO2 (test code = See_Comment L [Automated message] 4012414934) The system [employer] generated this result transmitted ref erence range: 80 - 100 mmHg. The reference r delano was not used to interpret this result as normal/abnor mal. HCO3 (test code = See_Comment [Automate d message] 1893591091) The system [employer] generated this result transmitted ref erence range: 22 - 26 mEq/L. The reference r delano was not used to interpret this result as normal/abnor mal. BE (test code = See_Comment [Automated message] 1035182776) The system [employer] generated this result transmitted ref erence range: -3.0 - 3 .0 mEq/L. The refe rence range was not u sed to interpret this result as normal/abnor mal. Lab Interpretation (test Abnormal code = 86710-0) [facility] GLUCOSE (AUTOMATED)2021-11-10 11:09:44 Test Item Value Reference Range Interpretation Comments POCT GLU (test code = 2315402164) 143 mg/dL 70-110 H Lab Interpretation (test code = Abnormal 52445-0) [facility] (NA, K, CL, CO2, GLUCOSE, BUN, CREATININE, CA)2021-11-10 10:02:46 Test Item Value Reference Range Interpretation Comments NA (test code = 139 mmol/L 135-145 4108412916) K (test code = 4.6 mmol/L 3.5-5 6192076346) CL (test code = 105 mmol/L 98-108 1905685509) CO2 TOTAL (test code = 30 mmol/L 23-31 4916728110) AGAP (test code = 2-16 4714527355) BUN (test code = 55 mg/dL 7-23 H 8117265423) GLUCOSE (test code = 153 mg/dL 70-110 H 9544964882) CREATININE (test code = 1.23 mg/dL 0.6-1.25 8274223687) CALCIUM (test code = 9.1 mg/dL 8.6-10.6 6399878390) eGFR (test code = mL/min/1.73m2 7603402267) MEG (test code = MEG) Association of Glomerular Filtration Rate (GFR) and Staging of Kidney Disease* + --+ --+ ------+| GFR (mL/min/1.73 m2) ?| With Kidney Damage ?| ?Without Kidney Damage+ --------+ --------+ +| ?>90 ?| ?Stage one ?| ? Normal ?+ ---+ ---+ -------+| ?60-89 ?| ?Stage two ?| ? Decreased GFR ? + --+ --+ ------+| ?30-59 ?| ?Stage three ?| ? Stage three ? + --+ --+ ------+| ?15-29 ?| ?Stage four ? | ? Stage four ?+ ---+ ---+ -------+| ?<15 (or dialysis) ? ?| ?Stage five ? | ? Stage five ?+ ---+ ---+ -------+ *Each stage assumes the associated GFR level has been in effect for at least three months. ?Stages 1 to 5, with or without kidney disease, indicate chronic kidney disease. Notes: Determination of stages one and two (with eGFR >59mL/min/1.73 m2) requires estimation of kidney damage for at least three months as defined by structural or functional abnormalities of the kidney, manifested by either:Pathological abnormalities or Markers of kidney damage (including abnormalities in the composition of the blood or urine or abnormalities in imaging tests). Lab Interpretation Abnormal (test code = 21455-6) [facility] Test Item Value Reference Range Interpretation Comments MAGNESIUM (test code = 6607841507) 2.9 mg/dL 1.7-2.4 H Lab Interpretation (test code = Abnormal 22686-3) [facility] WITH [id number] 09:28:00 Test Item Value Reference Range Interpretation Comments WBC (test code = See_Comment [Automated 6690-2) message] The sy stem which generated this result transmitted reference range : 4.20 - 10.70 10*3/?L. The reference range was not used to interpret this result as normal/abnormal . RBC (test code = See_Comment L [Automated 789-8) message] The sy stem which generated this result transmitted reference range : 4.26 - 5.52 10*6/?L. The reference range was not used to interpret this result as normal/abnormal . HGB (test code = 11.4 g/dL 12.2-16.4 L 718-7) HCT (test code = 36.5 % 38.4-49.3 L 4544-3) MCV (test code = 99.7 fL 81.7-95.6 H 787-2) MCH (test code = 31.1 pg 26.1-32.7 785-6) MCHC (test code = 31.2 g/dL 31.2-35 786-4) RDW-SD (test code = 56.4 fL 38.5-51.6 H 12754-5) RDW-CV (test code = 15.3 % 12.1-15.4 788-0) PLT (test code = See_Comment [Automated 777-3) message] The sy stem which generated this result transmitted reference range : 150 - 328 10*3/ ?L. The reference r delano was not used to interpret this result as normal/abnormal . MPV (test code = 10.6 fL 9.8-13 70835-2) NRBC/100 WBC (test See_Comment [Automat ed code = 9664874861) message] The system which generated this result transmitted reference range : 0.0 - 10.0 /100 WBCs. The refer ence range was not u sed to interpret th is result as normal/abnormal . NRBC x10^3 (test code See_Comment [Auto mated = 9719631321) message] The s [employer] which generated this result transmitted reference range : 10*3/?L. The reference range was not used to interpret this result as normal/abnormal . GRAN MAT (NEUT) % 74.7 % (test code = 770-8) IMM GRAN % (test code 0.90 % = 3550875146) LYMPH % (test code = 15.7 % 736-9) MONO % (test code = 8.3 % 5905-5) EOS % (test code = 0.3 % 713-8) BASO % (test code = 0.1 % 706-2) GRAN MAT x10^3(ANC) 5.66 10*3/uL 1.99-6.95 (test code = 1643147421) IMM GRAN x10^3 (test 0.07 10*3/uL 0-0.06 H code = 6134588161) LYMPH x10^3 (test code 1.19 10*3/uL 1.09-3.23 = 731-0) MONO x10^3 (test code 0.63 10*3/uL 0.36-1.02 = 742-7) EOS x10^3 (test code = 0.06-0.53 L 711-2) BASO x10^3 (test code 0.01-0.09 = 704-7) Lab Interpretation Abnormal (test code = 05757-5) [facility] GLUCOSE (AUTOMATED)2021-11-10 04:42:22 Test Item Value Reference Range Interpretation Comments POCT GLU (test code = 1546761670) 114 mg/dL 70-110 H Lab Interpretation (test code = Abnormal 48525-8) [facility] GLUCOSE (AUTOMATED)2021-11-09 22:21:24 Test Item Value Reference Range Interpretation Comments POCT GLU (test code = 4831959254) 163 mg/dL 70-110 H Lab Interpretation (test code = Abnormal 08026-9) [facility] GLUCOSE (AUTOMATED)2021-11-09 17:08:01 Test Item Value Reference Range Interpretation Comments POCT GLU (test code = 9296346790) 209 mg/dL 70-110 H Lab Interpretation (test code = Abnormal 32673-9) [facility] [id number] 13:19:46 Test Item Value Reference Range Interpretation Comments Blood Culture-Aerobic Culture positive. No growth AA P revious (test code = 33211-3) See Blood Culture p reliminary Workup for verified result additional was Culture In information. Progress on 11/01/2021 at 12 01 CDT Blood No organisms No growth Previous Culture-Anaerobic isolated preliminar y (test code = 91304-8) verifi ed result was Culture In Progress on 11/01/2021 at 12 01 CDT Lab Interpretation Abnormal (test code = 30267-7) [facility] GLUCOSE (AUTOMATED)2021-11-09 10:33:02 Test Item Value Reference Range Interpretation Comments POCT GLU (test code = 0031116430) 132 mg/dL 70-110 H Lab Interpretation (test code = Abnormal 80708-5) [facility] GLUCOSE (AUTOMATED)2021-11-09 04:11:31 Test Item Value Reference Range Interpretation Comments POCT GLU (test code = 8176662904) 155 mg/dL 70-110 H Lab Interpretation (test code = Abnormal 79521-3) [facility] GLUCOSE (AUTOMATED)2021-11-08 22:42:30 Test Item Value Reference Range Interpretation Comments POCT GLU (test code = 1918417138) 191 mg/dL 70-110 H Lab Interpretation (test code = Abnormal 04929-3) [facility] GLUCOSE (AUTOMATED)2021-11-08 16:58:00 Test Item Value Reference Range Interpretation Comments POCT GLU (test code = 3372417329) 207 mg/dL 70-110 H Lab Interpretation (test code = Abnormal 73114-8) [facility] [id number] 15:38:27 Test Item Value Reference Range Interpretation Comments CRP (test code = 1.9 mg/dL See_Comment H [Automated message] 1243087390) The system [employer] generated this result transmit glo reference range : <=0.8. The refe rence range was not u sed to interpret th is result as normal/abnormal . Lab Interpretation (test Abnormal code = 08361-5) [facility] GLUCOSE (AUTOMATED)2021-11-08 10:51:22 Test Item Value Reference Range Interpretation Comments POCT GLU (test code = 8728895667) 120 mg/dL 70-110 H Lab Interpretation (test code = Abnormal 88561-2) [facility] GLUCOSE (AUTOMATED)2021-11-08 04:54:26 Test Item Value Reference Range Interpretation Comments POCT GLU (test code = 6722830421) 124 mg/dL 70-110 H Lab Interpretation (test code = Abnormal 26834-4) [facility] GLUCOSE (AUTOMATED)2021-11-07 19:03:28 Test Item Value Reference Range Interpretation Comments POCT GLU (test code = 1252697331) 195 mg/dL 70-110 H Lab Interpretation (test code = Abnormal 66520-2) [facility] GLUCOSE (AUTOMATED)2021-11-07 05:17:30 Test Item Value Reference Range Interpretation Comments POCT GLU (test code = 8838198847) 125 mg/dL 70-110 H Lab Interpretation (test code = Abnormal 54472-6) [facility] GLUCOSE (AUTOMATED)2021-11-06 23:33:22 Test Item Value Reference Range Interpretation Comments POCT GLU (test code = 1241038244) 142 mg/dL 70-110 H Lab Interpretation (test code = Abnormal 20470-2) [facility] GLUCOSE (AUTOMATED)2021-11-06 16:32:23 Test Item Value Reference Range Interpretation Comments POCT GLU (test code = 5579242314) 163 mg/dL 70-110 H Lab Interpretation (test code = Abnormal 89068-1) [facility] GLUCOSE (AUTOMATED)2021-11-06 10:40:31 Test Item Value Reference Range Interpretation Comments POCT GLU (test code = 2908256055) 131 mg/dL 70-110 H Lab Interpretation (test code = Abnormal 60876-1) [facility] GLUCOSE (AUTOMATED)2021-11-06 04:37:49 Test Item Value Reference Range Interpretation Comments POCT GLU (test code = 8361639238) 141 mg/dL 70-110 H Lab Interpretation (test code = Abnormal 52868-4) [facility] [facility]-05 23:48:17 Test Item Value Reference Range Interpretation Comments POCT GLU (test code = 2752920715) 191 mg/dL 70-110 H Lab Interpretation (test code = Abnormal 61388-6) [facility] GLUCOSE (AUTOMATED)2021-11-05 22:46:16 Test Item Value Reference Range Interpretation Comments POCT GLU (test code = 8065993810) 220 mg/dL 70-110 H Lab Interpretation (test code = Abnormal 19240-7) [facility] GLUCOSE (AUTOMATED)2021-11-05 17:11:57 Test Item Value Reference Range Interpretation Comments POCT GLU (test code = 2974610241) 188 mg/dL 70-110 H Lab Interpretation (test code = Abnormal 89957-9) [facility] 11:47:58 Test Item Value Reference Range Interpretation Comments MAGNESIUM (test code = 7342702851) 1.9 mg/dL 1.7-2.4 Lab Interpretation (test code = Normal 32349-8) [facility] METABOLIC PANEL (NA, K, CL, CO2, GLUCOSE, BUN, CREATININE, CA)2021-11-05 11:47:57 Test Item Value Reference Range Interpretation Comments NA (test code = 135 mmol/L 135-145 4883608295) K (test code = 4.5 mmol/L 3.5-5 5947038014) CL (test code = 104 mmol/L 98-108 8735425500) CO2 TOTAL (test code = 27 mmol/L 23-31 8123061905) AGAP (test code = 2-16 3225134474) BUN (test code = 21 mg/dL 7-23 3719553803) GLUCOSE (test code = 135 mg/dL 70-110 H 4876079093) CREATININE (test code = 0.84 mg/dL 0.6-1.25 1456422169) CALCIUM (test code = 8.6 mg/dL 8.6-10.6 4987788631) eGFR (test code = mL/min/1.73m2 6083859950) MEG (test code = MEG) Association of Glomerular Filtration Rate (GFR) and Staging of Kidney Disease* + --+ --+ ------+| GFR (mL/min/1.73 m2) ?| With Kidney Damage ?| ?Without Kidney Damage+ --------+ --------+ +| ?>90 ?| ?Stage one ?| ? Normal ?+ ---+ ---+ -------+| ?60-89 ?| ?Stage two ?| ? Decreased GFR ? + --+ --+ ------+| ?30-59 ?| ?Stage three ?| ? Stage three ? + --+ --+ ------+| ?15-29 ?| ?Stage four ? | ? Stage four ?+ ---+ ---+ -------+| ?<15 (or dialysis) ? ?| ?Stage five ? | ? Stage five ?+ ---+ ---+ -------+ *Each stage assumes the associated GFR level has been in effect for at least three months. ?Stages 1 to 5, with or without kidney disease, indicate chronic kidney disease. Notes: Determination of stages one and two (with eGFR >59mL/min/1.73 m2) requires estimation of kidney damage for at least three months as defined by structural or functional abnormalities of the kidney, manifested by either:Pathological abnormalities or Markers of kidney damage (including abnormalities in the composition of the blood or urine or abnormalities in imaging tests). Lab Interpretation Abnormal (test code = 28311-9) [facility] WITH [id number] 11:14:15 Test Item Value Reference Range Interpretation Comments WBC (test code = See_Comment [Automated 5590-2) message] The sy stem which generated this result transmitted reference range : 4.20 - 10.70 10*3/?L. The reference range was not used to interpret this result as normal/abnormal . RBC (test code = See_Comment L [Automated 169-8) message] The sy stem which generated this result transmitted reference range : 4.26 - 5.52 10*6/?L. The reference range was not used to interpret this result as normal/abnormal . HGB (test code = 10.1 g/dL 12.2-16.4 L 718-7) HCT (test code = 32.1 % 38.4-49.3 L 4544-3) MCV (test code = 99.1 fL 81.7-95.6 H 787-2) MCH (test code = 31.2 pg 26.1-32.7 785-6) MCHC (test code = 31.5 g/dL 31.2-35 786-4) RDW-SD (test code = 55.8 fL 38.5-51.6 H 91740-2) RDW-CV (test code = 15.7 % 12.1-15.4 H 788-0) PLT (test code = See_Comment L [Automated 777-3) message] The sy stem which generated this result transmitted reference range : 150 - 328 10*3/ ?L. The reference r delano was not used to interpret this result as normal/abnormal . MPV (test code = 10.5 fL 9.8-13 62502-0) NRBC/100 WBC (test See_Comment [Automat ed code = 5506294440) message] The system which generated this result transmitted reference range : 0.0 - 10.0 /100 WBCs. The refer ence range was not u sed to interpret th is result as normal/abnormal . NRBC x10^3 (test code See_Comment [Auto mated = 3278349928) message] The s ystem which generated this result transmitted reference range : 10*3/?L. The reference range was not used to interpret this result as normal/abnormal . GRAN MAT (NEUT) % 74.8 % (test code = 770-8) IMM GRAN % (test code 1.10 % = 7404588887) LYMPH % (test code = 18.5 % 736-9) MONO % (test code = 5.4 % 5905-5) EOS % (test code = 0.1 % 713-8) BASO % (test code = 0.1 % 706-2) GRAN MAT x10^3(ANC) 5.42 10*3/uL 1.99-6.95 (test code = 4089320727) IMM GRAN x10^3 (test 0.08 10*3/uL 0-0.06 H code = 6591562769) LYMPH x10^3 (test code 1.34 10*3/uL 1.09-3.23 = 731-0) MONO x10^3 (test code 0.39 10*3/uL 0.36-1.02 = 742-7) EOS x10^3 (test code = 0.06-0.53 L 711-2) BASO x10^3 (test code 0.01-0.09 = 704-7) Lab Interpretation Abnormal (test code = 68834-0) [facility] GLUCOSE (AUTOMATED)2021-11-05 05:19:05 Test Item Value Reference Range Interpretation Comments POCT GLU (test code = 3717235432) 166 mg/dL 70-110 H Lab Interpretation (test code = Abnormal 10249-3) [facility] GLUCOSE (AUTOMATED)2021-11-04 22:35:16 Test Item Value Reference Range Interpretation Comments POCT GLU (test code = 4941979870) 205 mg/dL 70-110 H Lab Interpretation (test code = Abnormal 64353-0) [facility] GLUCOSE (AUTOMATED)2021-11-04 16:40:38 Test Item Value Reference Range Interpretation Comments POCT GLU (test code = 6800334451) 175 mg/dL 70-110 H Lab Interpretation (test code = Abnormal 47569-5) [facility] METABOLIC PANEL (NA, K, CL, CO2, GLUCOSE, BUN, CREATININE, CA)2021-11-04 11:10:45 Test Item Value Reference Range Interpretation Comments NA (test code = 138 mmol/L 135-145 0499467709) K (test code = 4.6 mmol/L 3.5-5 0842052094) CL (test code = 106 mmol/L 98-108 7624270485) CO2 TOTAL (test code = 25 mmol/L 23-31 5875204015) AGAP (test code = 2-16 8343857583) BUN (test code = 20 mg/dL 7-23 6293362455) GLUCOSE (test code = 163 mg/dL 70-110 H 6331124292) CREATININE (test code = 0.84 mg/dL 0.6-1.25 0870440366) CALCIUM (test code = 8.3 mg/dL 8.6-10.6 L 3973167574) eGFR (test code = mL/min/1.73m2 8668030080) MEG (test code = MEG) Association of Glomerular Filtration Rate (GFR) and Staging of Kidney Disease* + --+ --+ ------+| GFR (mL/min/1.73 m2) ?| With Kidney Damage ?| ?Without Kidney Damage+ --------+ --------+ +| ?>90 ?| ?Stage one ?| ? Normal ?+ ---+ ---+ -------+| ?60-89 ?| ?Stage two ?| ? Decreased GFR ? + --+ --+ ------+| ?30-59 ?| ?Stage three ?| ? Stage three ? + --+ --+ ------+| ?15-29 ?| ?Stage four ? | ? Stage four ?+ ---+ ---+ -------+| ?<15 (or dialysis) ? ?| ?Stage five ? | ? Stage five ?+ ---+ ---+ -------+ *Each stage assumes the associated GFR level has been in effect for at least three months. ?Stages 1 to 5, with or without kidney disease, indicate chronic kidney disease. Notes: Determination of stages one and two (with eGFR >59mL/min/1.73 m2) requires estimation of kidney damage for at least three months as defined by structural or functional abnormalities of the kidney, manifested by either:Pathological abnormalities or Markers of kidney damage (including abnormalities in the composition of the blood or urine or abnormalities in imaging tests). Lab Interpretation Abnormal (test code = 26517-4) [facility] 11:10:45 Test Item Value Reference Range Interpretation Comments MAGNESIUM (test code = 3770140355) 2.1 mg/dL 1.7-2.4 Lab Interpretation (test code = Normal 81753-4) [facility] GLUCOSE (AUTOMATED)2021-11-04 11:00:59 Test Item Value Reference Range Interpretation Comments POCT GLU (test code = 7230438126) 158 mg/dL 70-110 H Lab Interpretation (test code = Abnormal 41336-8) [facility] WITH [id number] 10:49:08 Test Item Value Reference Range Interpretation Comments WBC (test code = See_Comment [Automated 6690-2) message] The sy stem which generated this result transmitted reference range : 4.20 - 10.70 10*3/?L. The reference range was not used to interpret this result as normal/abnormal . RBC (test code = See_Comment L [Automated 789-8) message] The sy stem which generated this result transmitted reference range : 4.26 - 5.52 10*6/?L. The reference range was not used to interpret this result as normal/abnormal . HGB (test code = 9.5 g/dL 12.2-16.4 L 718-7) HCT (test code = 30.0 % 38.4-49.3 L 4544-3) MCV (test code = 100.3 fL 81.7-95.6 H 787-2) MCH (test code = 31.8 pg 26.1-32.7 785-6) MCHC (test code = 31.7 g/dL 31.2-35 786-4) RDW-SD (test code = 57.4 fL 38.5-51.6 H 78152-2) RDW-CV (test code = 15.6 % 12.1-15.4 H 788-0) PLT (test code = See_Comment L [Automated 777-3) message] The sy stem which generated this result transmitted reference range : 150 - 328 10*3/ ?L. The reference r delano was not used to interpret this result as normal/abnormal . MPV (test code = 11.0 fL 9.8-13 34941-2) NRBC/100 WBC (test See_Comment [Automat ed code = 1963871112) message] The system which generated this result transmitted reference range : 0.0 - 10.0 /100 WBCs. The refer ence range was not u sed to interpret th is result as normal/abnormal . NRBC x10^3 (test code See_Comment [Auto mated = 3820946946) message] The s ystem which generated this result transmitted reference range : 10*3/?L. The reference range was not used to interpret this result as normal/abnormal . GRAN MAT (NEUT) % 78.8 % (test code = 770-8) IMM GRAN % (test code 0.50 % = 1212601887) LYMPH % (test code = 16.1 % 736-9) MONO % (test code = 4.6 % 5905-5) EOS % (test code = 0.0 % 713-8) BASO % (test code = 0.0 % 706-2) GRAN MAT x10^3(ANC) 4.31 10*3/uL 1.99-6.95 (test code = 3899652042) IMM GRAN x10^3 (test 0.03 10*3/uL 0-0.06 code = 4369995258) LYMPH x10^3 (test code 0.88 10*3/uL 1.09-3.23 L = 731-0) MONO x10^3 (test code 0.25 10*3/uL 0.36-1.02 L = 742-7) EOS x10^3 (test code = 0.06-0.53 L 711-2) BASO x10^3 (test code 0.01-0.09 = 704-7) Lab Interpretation Abnormal (test code = 32492-2) [facility] GLUCOSE (AUTOMATED)2021-11-04 04:44:38 Test Item Value Reference Range Interpretation Comments POCT GLU (test code = 1327664404) 182 mg/dL 70-110 H Lab Interpretation (test code = Abnormal 52697-5) [facility] GLUCOSE (AUTOMATED)2021-11-03 22:53:48 Test Item Value Reference Range Interpretation Comments POCT GLU (test code = 9478813219) 227 mg/dL 70-110 H Lab Interpretation (test code = Abnormal 58993-3) [facility] GLUCOSE (AUTOMATED)2021-11-03 16:45:51 Test Item Value Reference Range Interpretation Comments POCT GLU (test code = 1115113028) 169 mg/dL 70-110 H Lab Interpretation (test code = Abnormal 51159-9) [facility] [id number] 15:23:28 Test Item Value Reference Range Interpretation Comments Blood Culture-Aerobic Culture positive. No growth AA P revious (test code = 96928-3) See Blood Culture p reliminary Workup for verified result additional was Culture In information. Progress on 11/01/2021 at 12 01 CDT Blood Culture positive. No growth AA Previous Culture-Anaerobic See Blood Culture preli minary (test code = 27999-6) Workup for verifi ed result additional was Culture In information. Progress on 11/01/2021 at 12 01 CDT Lab Interpretation Abnormal (test code = 97953-0) [facility] GLUCOSE (AUTOMATED)2021-11-03 10:51:38 Test Item Value Reference Range Interpretation Comments POCT GLU (test code = 5447381325) 162 mg/dL 70-110 H Lab Interpretation (test code = Abnormal 74476-8) [facility] METABOLIC PANEL (NA, K, CL, CO2, GLUCOSE, BUN, CREATININE, CA)2021-11-03 09:58:13 Test Item Value Reference Range Interpretation Comments NA (test code = 139 mmol/L 135-145 9211021088) K (test code = 4.5 mmol/L 3.5-5 0299165608) CL (test code = 108 mmol/L 98-108 4532215276) CO2 TOTAL (test code = 26 mmol/L 23-31 0365852653) AGAP (test code = 2-16 3472277931) BUN (test code = 23 mg/dL 7-23 8783852606) GLUCOSE (test code = 193 mg/dL 70-110 H 9677750749) CREATININE (test code = 0.87 mg/dL 0.6-1.25 6673941340) CALCIUM (test code = 8.3 mg/dL 8.6-10.6 L 9486306463) eGFR (test code = mL/min/1.73m2 1867739400) MEG (test code = MEG) Association of Glomerular Filtration Rate (GFR) and Staging of Kidney Disease* + --+ --+ ------+| GFR (mL/min/1.73 m2) ?| With Kidney Damage ?| ?Without Kidney Damage+ --------+ --------+ +| ?>90 ?| ?Stage one ?| ? Normal ?+ ---+ ---+ -------+| ?60-89 ?| ?Stage two ?| ? Decreased GFR ? + --+ --+ ------+| ?30-59 ?| ?Stage three ?| ? Stage three ? + --+ --+ ------+| ?15-29 ?| ?Stage four ? | ? Stage four ?+ ---+ ---+ -------+| ?<15 (or dialysis) ? ?| ?Stage five ? | ? Stage five ?+ ---+ ---+ -------+ *Each stage assumes the associated GFR level has been in effect for at least three months. ?Stages 1 to 5, with or without kidney disease, indicate chronic kidney disease. Notes: Determination of stages one and two (with eGFR >59mL/min/1.73 m2) requires estimation of kidney damage for at least three months as defined by structural or functional abnormalities of the kidney, manifested by either:Pathological abnormalities or Markers of kidney damage (including abnormalities in the composition of the blood or urine or abnormalities in imaging tests). Lab Interpretation Abnormal (test code = 85351-9) [facility] 09:58:13 Test Item Value Reference Range Interpretation Comments MAGNESIUM (test code = 0952657376) 2.1 mg/dL 1.7-2.4 Lab Interpretation (test code = Normal 79138-8) [facility] WITH [id number] 09:53:21 Test Item Value Reference Range Interpretation Comments WBC (test code = See_Comment [Automated 6690-2) message] The sy stem which generated this result transmitted reference range : 4.20 - 10.70 10*3/?L. The reference range was not used to interpret this result as normal/abnormal . RBC (test code = See_Comment L [Automated 789-8) message] The sy stem which generated this result transmitted reference range : 4.26 - 5.52 10*6/?L. The reference range was not used to interpret this result as normal/abnormal . HGB (test code = 9.9 g/dL 12.2-16.4 L 718-7) HCT (test code = 30.7 % 38.4-49.3 L 4544-3) MCV (test code = 97.8 fL 81.7-95.6 H 787-2) MCH (test code = 31.5 pg 26.1-32.7 785-6) MCHC (test code = 32.2 g/dL 31.2-35 786-4) RDW-SD (test code = 55.9 fL 38.5-51.6 H 72400-6) RDW-CV (test code = 15.6 % 12.1-15.4 H 788-0) PLT (test code = See_Comment L [Automated 777-3) message] The sy stem which generated this result transmitted reference range : 150 - 328 10*3/ ?L. The reference r delano was not used to interpret this result as normal/abnormal . MPV (test code = 10.7 fL 9.8-13 83516-6) IPF % (test code = 4.2 % 1.2-10.7 Platelet count 9027115118) measured by fluorescence method. NRBC/100 WBC (test See_Comment [Automat ed code = 7192743724) message] The system which generated this result transmitted reference range : 0.0 - 10.0 /100 WBCs. The refer ence range was not u sed to interpret th is result as normal/abnormal . NRBC x10^3 (test code See_Comment [Auto mated = 8034439804) message] The s ystem which generated this result transmitted reference range : 10*3/?L. The reference range was not used to interpret this result as normal/abnormal . GRAN MAT (NEUT) % 84.0 % (test code = 770-8) IMM GRAN % (test code 0.40 % = 5620694560) LYMPH % (test code = 11.0 % 736-9) MONO % (test code = 4.4 % 5905-5) EOS % (test code = 0.0 % 713-8) BASO % (test code = 0.2 % 706-2) GRAN MAT x10^3(ANC) 4.74 10*3/uL 1.99-6.95 (test code = 8467298765) IMM GRAN x10^3 (test 0-0.06 code = 1601754162) LYMPH x10^3 (test code 0.62 10*3/uL 1.09-3.23 L = 731-0) MONO x10^3 (test code 0.25 10*3/uL 0.36-1.02 L = 742-7) EOS x10^3 (test code = 0.06-0.53 L 711-2) BASO x10^3 (test code 0.01-0.09 = 704-7) Lab Interpretation Abnormal (test code = 11651-0) [facility] 05:11:58 Test Item Value Reference Range Interpretation Comments POCT GLU (test code = 4954333706) 244 mg/dL 70-110 H Lab Interpretation (test code = Abnormal 17621-7) [facility] POS[facility] BLOOD PATHOGENS DNA [id number] 23:19:58 Test Item Value Reference Range Interpretation Comments Coagulase Negative Positive Negative, See A Staphylococcus (test Comment/Narrative code = 24658-4) MEG (test code = MEG) Coagulase negative Staphylococcus (CoNS) detected by DNA probe. ?CoNS often contaminate blood cultures from skin colonization during phlebotomy. ?Preferred management is to repeat blood cultures, and monitor off antibiotics. ?Contamination is suggested by culture growth after 48 hours, or growth in single culture (i.e., one of two sets). ?True bacteremia is suggested by the fever, hypotension, and leukocytosis that are not explained by an alternative infection, or indwelling foreign devices that appear infected (catheters, lines, or prostheses). Consider Infectious Diseases consultation if differentiation of CoNS bacteremia from contamination is uncertain. If clinical context suggests true bacteremia, preferred therapy is vancomycin. Please contact the Antimicrobial Stewardship Program with questions.Pager: ?[phone] Testing included eleven identification and three resistance marker targets. Lab Interpretation Abnormal (test code = 78826-8) [facility]21-11-02 22:02:03 Test Item Value Reference Range Interpretation Comments POCT GLU (test code = 7982262145) 220 mg/dL 70-110 H Lab Interpretation (test code = Abnormal 41449-0) [facility]an[facility] (TTE)2021-11-02 19:56:57 Test Item Value Reference Range Interpretation Comments Height (test code = in 4026128479) Weight (test code = lbs 2897987352) Systolic BP (test code = mmHg 4234092024) Diastolic BP (test code mmHg = 1865615722) Heart Rate (test code = bpm 0170199681) BSA (test code = 2.46 m2 7820144209) LVOT diameter (test code 2.8 cm = 5290842790) LA size (test code = 4.7 cm 5879723336) LVIDD (test code = 5.40 cm 6618101146) IVS (test code = 1.18 cm 1757023313) Interventricular Septum 1.18 cm Diastolic Thickness by 2D (test code = 2571191) LVPWD (test code = 1.45 cm 8053165763) PW (test code = 1.45 cm 0.6-1.3 1152486712) EF(Teich) (test code = 50.50 % 1816766760) LVIDS (test code = 4.00 cm 2606584585) FS (test code = 26 % 3960530967) EF - 2D (test code = 50.50 % 01298321) MV Peak E Michelle (test code 93.8 cm/s = 8393275345) MV Peak A Michelle (test code 113.5 cm/s = 5580449523) E/A ratio (test code = ratio 2822573905) E wave decelartion time 0.17 s (test code = 3848424784) MV Prop V (test code = 50.90 cm/s 7068951231) LAV(MOD-sp4) (test code 63.80 mL = 6218929958) Tapse (test code = 2.7 cm 4151622696) LVOT stroke volume (test 123.20 cm3 code = 2530352933) LVOT peak michelle (test code 87.0 cm/s = 0510447426) LVOT mn grad (test code mmHg = 7961114701) AV LVOT peak gradient mmHg (test code = 6053165642) LVOT peak VTI (test code 20.0 cm = 1407939161) LV V1 mean (test code = 60.70 cm/s 0999659927) Ao peak michelle (test code = 169.6 cm/s 6531806777) AV area peak michelle (test 3.2 cm2 code = 4481862998) Ao max PG (test code = 11.50 mm[Hg] 2933603508) AV peak gradient (test mmHg code = 1319603164) LA Volume Index (BP) 28.0 mL/m2 (test code = 3339107635) LA volume (BP) (test 68.7 mL code = 3183625916) LAV(MOD-sp2) (test code 75.00 mL = 4198401749) MR max PG (test code = 87.90 mm[Hg] 5997632888) MR max michelle (test code = 468.70 cm/s 4675615311) Mr max michelle (test code = 468.7 m/s 8306613818) Radiology Study observation (narrative) (test code = 96086-4) MEG (test code = MEG) Formatting of this result is different from the original. ?Left?Ventricle: Left ventricle size is normal. Increased wall thickness. There is concentric remodeling. Normal wall motion. Normal systolic function with a visually estimated EF of 55 - 60%. ?Right?Ventricle: Right ventricle size is normal. Normal systolic function. ?Tricuspid?Valve: Insufficient tricuspid regurgitation jet to estimate RVSP. ?Pericardium: No pericardial effusion. Left VentricleLeft ventricle size is normal. Increased wall thickness. There is concentric remodeling. Normal wall motion. Normal systolic function with a visually estimated EF of 55 - 60%. There is grade 1 diastolic dysfunction and impaired relaxation.Right VentricleRight ventricle size is normal. Normal systolic function.Left AtriumLeft atrium size is normal.Right AtriumRight atrium size is normal.IVC/SVCIVC was not well visualized.Mitral ValveMitral valve structure is normal.Tricuspid ValveTricuspid valve structure is normal. Insufficient tricuspid regurgitation jet to estimate RVSP.Aortic ValveAortic valve structure is normal.Pulmonic ValveNot well visualized.Ascending AortaSinus of Valsalva is normal in size.PericardiumThe pericardium is normal. No pericardial effusion.Study DetailsA complete echocardiogram was performed using 2D, color flow Doppler and spectral Doppler. 5 mL of Lumason ultrasound enhancing agent used. [facility]21-11-02 17:16:28 Test Item Value Reference Range Interpretation Comments POCT GLU (test code = 0631907942) 179 mg/dL 70-110 H Lab Interpretation (test code = Abnormal 48534-5) [facility] 20 + Lactic [id number] 16:43:22 Test Item Value Reference Range Interpretation Comments PH (test code = 2) 7.35-7.45 H PCO2 (test code = See_Comment L [Automate d 6335656994) message] The sy stem which generated this result transmitted reference range : 35 - 45 mmHg. The reference range was not used to interpret this result as normal/abnormal . PO2 (test code = See_Comment L [Automated 6700773816) message] The sy stem which generated this result transmitted reference range : 80 - 100 mmHg. The reference range was not used to interpret this result as normal/abnormal . HCO3 (test code = See_Comment [Automate d 6210680560) message] The sy stem which generated this result transmitted reference range : 22 - 26 mEq/L. The reference range was not used to interpret this result as normal/abnormal . BE (test code = See_Comment [Automated 2492576022) message] The sy stem which generated this result transmitted reference range : -3.0 - 3.0 mEq/ L. The reference r delano was not used to interpret this result as normal/abnormal . THB (test code = 11.7 g/dL 13.5-18 L 7242478737) %O2HB (test code = 91.3 % 94-99 L 1922528010) %COHB ART (test code = 0.2 % 0-1.5 4445506743) %METHB ART (test code = 0.0 % 0.4-1.5 L 1299033576) VOL%O2 ART (test code = 15.0 % 15-23 7800872409) NA (test code = 137 mmol/L 135-145 1287226795) K+ (test code = 4.2 mmol/L 3.5-5 0775221466) AC CA IONZ (test code = 4.50 mg/dL 4.5-5.3 2325728822) GLUCOSE (test code = 198 mg/dL 70-110 H 7504540529) LACTIC ACID (test code 1.67 mmol/L 0.5-2.2 = 3682034306) Lab Interpretation Abnormal (test code = 66369-3) [facility] GLUCOSE (AUTOMATED)2021-11-02 11:52:27 Test Item Value Reference Range Interpretation Comments POCT GLU (test code = 5323963425) 186 mg/dL 70-110 H Lab Interpretation (test code = Abnormal 30892-5) [facility]. METABOLIC PANEL (81577)2021-11-02 11:24:39 Test Item Value Reference Range Interpretation Comments NA (test code = 139 mmol/L 135-145 5830407108) K (test code = 4.7 mmol/L 3.5-5 3740969211) CL (test code = 105 mmol/L 98-108 3373612768) CO2 TOTAL (test code = 27 mmol/L 23-31 3876426191) AGAP (test code = 2-16 6725436654) BUN (test code = 35 mg/dL 7-23 H 1305798061) GLUCOSE (test code = 214 mg/dL 70-110 H 0743175101) CREATININE (test code = 1.19 mg/dL 0.6-1.25 5177109847) TOTAL BILI (test code = 0.4 mg/dL 0.1-1.1 5371470259) CALCIUM (test code = 8.7 mg/dL 8.6-10.6 1026022396) T PROTEIN (test code = 7.3 g/dL 6.3-8.2 9626768432) ALBUMIN (test code = 3.9 g/dL 3.5-5 1925621057) ALK PHOS (test code = 84 U/L 34-122 4893181477) ALTv (test code = 17 U/L 5-50 2-6) AST(SGOT) (test code = 27 U/L 13-40 7195813477) eGFR (test code = mL/min/1.73m2 5980554788) MEG (test code = MEG) Association of Glomerular Filtration Rate (GFR) and Staging of Kidney Disease* + --+ --+ ------+| GFR (mL/min/1.73 m2) ?| With Kidney Damage ?| ?Without Kidney Damage+ --------+ --------+ +| ?>90 ?| ?Stage one ?| ? Normal ?+ ---+ ---+ -------+| ?60-89 ?| ?Stage two ?| ? Decreased GFR ? + --+ --+ ------+| ?30-59 ?| ?Stage three ?| ? Stage three ? + --+ --+ ------+| ?15-29 ?| ?Stage four ? | ? Stage four ?+ ---+ ---+ -------+| ?<15 (or dialysis) ? ?| ?Stage five ? | ? Stage five ?+ ---+ ---+ -------+ *Each stage assumes the associated GFR level has been in effect for at least three months. ?Stages 1 to 5, with or without kidney disease, indicate chronic kidney disease. Notes: Determination of stages one and two (with eGFR >59mL/min/1.73 m2) requires estimation of kidney damage for at least three months as defined by structural or functional abnormalities of the kidney, manifested by either:Pathological abnormalities or Markers of kidney damage (including abnormalities in the composition of the blood or urine or abnormalities in imaging tests). Lab Interpretation Abnormal (test code = 63686-1) [facility] 11:24:39 Test Item Value Reference Range Interpretation Comments MAGNESIUM (test code = 9014605002) 2.3 mg/dL 1.7-2.4 Lab Interpretation (test code = Normal 29831-3) [facility] WITHOUT [id number] 11:05:39 Test Item Value Reference Range Interpretation Comments WBC (test code = See_Comment L [Automated message] 6690-2) The system [employer] generated this result transmitted ref erence range: 4.20 - 1 0.70 10*3/?L. The reference range was not used to int erpret this result as normal/abnormal . RBC (test code = 789-8) See_Comment L [Au tomated message] The system [employer] generated this result transmitted ref erence range: 4.26 - 5 .52 10*6/?L. The reference range was not used to int erpret this result as normal/abnormal . HGB (test code = 718-7) 11.3 g/dL 12.2-16.4 L HCT (test code = 34.2 % 38.4-49.3 L 4544-3) MCH (test code = 785-6) 32.3 pg 26.1-32.7 MCV (test code = 787-2) 97.7 fL 81.7-95.6 H MCHC (test code = 33.0 g/dL 31.2-35 786-4) PLT (test code = 777-3) See_Comment L [Au tomated message] The system [employer] generated this result transmitted ref erence range: 150 - 32 8 10*3/?L. The reference range was not used to int erpret this result as normal/abnormal . MPV (test code = 11.1 fL 9.8-13 37767-6) RDW-CV (test code = 15.5 % 12.1-15.4 H 788-0) RDW-SD (test code = 55.4 fL 38.5-51.6 H 09632-4) NRBC x10^3 (test code = See_Comment [Au tomated message] 3007871511) The system [employer] generated this result transmitted ref erence range: 10*3/?L. The reference range was not used to int erpret this result as normal/abnormal . NRBC/100 WBC (test code See_Comment [Au tomated message] = 1490568494) The system [employer] generated this result transmitted ref erence range: 0.0 - 10 .0 /100 WBCs. The reference range was not used to int erpret this result as normal/abnormal . IPF % (test code = 4.5 % 1.2-10.7 Platelet count 5506878849) measured by fluorescence me thod. Lab Interpretation Abnormal (test code = 85715-5) [facility] METABOLIC PANEL (NA, K, CL, CO2, GLUCOSE, BUN, CREATININE, CA)2021-11-02 09:54:52 Test Item Value Reference Range Interpretation Comments NA (test code = 136 mmol/L 135-145 0597400264) K (test code = 5.2 mmol/L 3.5-5 H 1967991656) CL (test code = 103 mmol/L 98-108 1235812334) CO2 TOTAL (test code = 27 mmol/L 23-31 8718177460) AGAP (test code = 2-16 1726326448) BUN (test code = 38 mg/dL 7-23 H 4804029367) GLUCOSE (test code = 374 mg/dL 70-110 H 8669402498) CREATININE (test code = 1.32 mg/dL 0.6-1.25 H 8176460701) CALCIUM (test code = 8.5 mg/dL 8.6-10.6 L 8279803773) eGFR (test code = mL/min/1.73m2 8845096274) MEG (test code = MEG) Association of Glomerular Filtration Rate (GFR) and Staging of Kidney Disease* + --+ --+ ------+| GFR (mL/min/1.73 m2) ?| With Kidney Damage ?| ?Without Kidney Damage+ --------+ --------+ +| ?>90 ?| ?Stage one ?| ? Normal ?+ ---+ ---+ -------+| ?60-89 ?| ?Stage two ?| ? Decreased GFR ? + --+ --+ ------+| ?30-59 ?| ?Stage three ?| ? Stage three ? + --+ --+ ------+| ?15-29 ?| ?Stage four ? | ? Stage four ?+ ---+ ---+ -------+| ?<15 (or dialysis) ? ?| ?Stage five ? | ? Stage five ?+ ---+ ---+ -------+ *Each stage assumes the associated GFR level has been in effect for at least three months. ?Stages 1 to 5, with or without kidney disease, indicate chronic kidney disease. Notes: Determination of stages one and two (with eGFR >59mL/min/1.73 m2) requires estimation of kidney damage for at least three months as defined by structural or functional abnormalities of the kidney, manifested by either:Pathological abnormalities or Markers of kidney damage (including abnormalities in the composition of the blood or urine or abnormalities in imaging tests). Lab Interpretation Abnormal (test code = 79831-7) [facility] Arterial Blood Gas.2021-11-02 09:24:09 Test Item Value Reference Range Interpretation Comments PH (test code = 2) 7.35-7.45 PCO2 (test code = See_Comment [Automate d message] 2802353440) The system [employer] generated this result transmitted ref erence range: 35 - 45 mmHg. The reference r delano was not used to interpret this result as normal/abnor mal. PO2 (test code = See_Comment [Automated message] 0208893706) The system [employer] generated this result transmitted ref erence range: 80 - 100 mmHg. The reference r delano was not used to interpret this result as normal/abnor mal. HCO3 (test code = See_Comment [Automate d message] 7158280021) The system [employer] generated this result transmitted ref erence range: 22 - 26 mEq/L. The reference r delano was not used to interpret this result as normal/abnor mal. BE (test code = See_Comment [Automated message] 7077745582) The system whic h generated this result transmitted ref erence range: -3.0 - 3 .0 mEq/L. The refe rence range was not u sed to interpret this result as normal/abnor mal. Lab Interpretation (test Normal code = 19034-9) [facility] [id number] 07:39:07 Test Item Value Reference Range Interpretation Comments CK (test code = 6575862719) 77 U/L 33-194 Lab Interpretation (test code = Normal 59537-3) [facility] ABG + LACTIC [id number] 23:46:26 Test Item Value Reference Range Interpretation Comments PH (test code = 2) 7.35-7.45 PCO2 (test code = See_Comment [Automate d 6437334441) message] The sy stem which generated this result transmitted reference range : 35 - 45 mmHg. The reference range was not used to interpret this result as normal/abnormal . PO2 (test code = See_Comment [Automated 8627042395) message] The sy stem which generated this result transmitted reference range : 80 - 100 mmHg. The reference range was not used to interpret this result as normal/abnormal . HCO3 (test code = See_Comment [Automate d 7022622575) message] The sy stem which generated this result transmitted reference range : 22 - 26 mEq/L. The reference range was not used to interpret this result as normal/abnormal . BE (test code = See_Comment [Automated 5813208189) message] The sy stem which generated this result transmitted reference range : -3.0 - 3.0 mEq/ L. The reference r delano was not used to interpret this result as normal/abnormal . LACTIC ACID (test code 1.21 mmol/L 0.5-2.2 = 9371923213) Lab Interpretation Normal (test code = 14074-8) [facility] Panel 20 + Lactic [id number] 21:17:55 Test Item Value Reference Range Interpretation Comments PH (test code = 2) 7.35-7.45 L PCO2 (test code = See_Comment H [Automate d 1587381455) message] The sy stem which generated this result transmitted reference range : 35 - 45 mmHg. The reference range was not used to interpret this result as normal/abnormal . PO2 (test code = See_Comment L [Automated 7563051631) message] The sy stem which generated this result transmitted reference range : 80 - 100 mmHg. The reference range was not used to interpret this result as normal/abnormal . HCO3 (test code = See_Comment [Automate d 1453394630) message] The sy stem which generated this result transmitted reference range : 22 - 26 mEq/L. The reference range was not used to interpret this result as normal/abnormal . BE (test code = See_Comment [Automated 5148060114) message] The sy stem which generated this result transmitted reference range : -3.0 - 3.0 mEq/ L. The reference r delano was not used to interpret this result as normal/abnormal . THB (test code = 12.5 g/dL 13.5-18 L 7782901822) %O2HB (test code = 89.9 % 94-99 L 3043670062) %COHB ART (test code = 1.0 % 0-1.5 4345036526) %METHB ART (test code = 0.1 % 0.4-1.5 L 7888628996) VOL%O2 ART (test code = 15.8 % 15-23 9042703428) NA (test code = 138 mmol/L 135-145 3867727766) K+ (test code = 6.5 mmol/L 3.5-5 HH 5564925387) AC CA IONZ (test code = 4.50 mg/dL 4.5-5.3 3323012800) GLUCOSE (test code = 201 mg/dL 70-110 H 5155082809) LACTIC ACID (test code 0.98 mmol/L 0.5-2.2 = 0340206422) Lab Interpretation Abnormal (test code = 89767-6) [facility]OT[facility] [id number] 20:01:58 Test Item Value Reference Range Interpretation Comments K (test code = 2521270955) 6.2 mmol/L 3.5-5 HH Lab Interpretation (test code = Abnormal 93675-2) [facility] WITH [id number] 14:47:49 Test Item Value Reference Range Interpretation Comments WBC (test code = See_Comment [Automated 6690-2) message] The system which generated this result transmit glo reference range : 4.20 - 10.70 10*3/?L. The reference range was not used to interpret this result as normal/abnormal . RBC (test code = See_Comment L [Automated 789-8) message] The system which generated this result transmit glo reference range : 4.26 - 5.52 10*6/?L. The reference range was not used to interpret this result as normal/abnormal . HGB (test code = 12.8 g/dL 12.2-16.4 718-7) HCT (test code = 41.2 % 38.4-49.3 4544-3) MCV (test code = 102.0 fL 81.7-95.6 H 787-2) MCH (test code = 31.7 pg 26.1-32.7 785-6) MCHC (test code = 31.1 g/dL 31.2-35 L 786-4) RDW-SD (test code = 59.1 fL 38.5-51.6 H 18229-4) RDW-CV (test code = 15.7 % 12.1-15.4 H 788-0) PLT (test code = See_Comment L [Automated 777-3) message] The system which generated this result transmit glo reference range : 150 - 328 10*3/ ?L. The reference range was not u sed to interpret th is result as normal/abnormal . MPV (test code = 10.7 fL 9.8-13 52244-8) IPF % (test code = 3.8 % 1.2-10.7 Platelet count 0322970329) measured by fluorescence method. NRBC/100 WBC (test See_Comment [Automat ed code = 5406522437) message] The system which generated this result transmit glo reference range : 0.0 - 10.0 /100 WBCs. The reference range was not used to interpret this result as normal/abnormal . NRBC x10^3 (test code See_Comment [Auto mated = 3696078904) message] The system which generated this result transmit glo reference range : 10*3/?L. The reference range was not used to interpret this result as normal/abnormal . GRAN MAT (NEUT) % 76.6 % (test code = 770-8) IMM GRAN % (test code 0.40 % = 0952585356) LYMPH % (test code = 14.7 % 736-9) MONO % (test code = 8.1 % 5905-5) EOS % (test code = 0.1 % 713-8) BASO % (test code = 0.1 % 706-2) GRAN MAT x10^3(ANC) 6.09 10*3/uL 1.99-6.95 (test code = 7669466896) IMM GRAN x10^3 (test 0.03 10*3/uL 0-0.06 code = 0283037140) LYMPH x10^3 (test 1.17 10*3/uL 1.09-3.23 code = 731-0) MONO x10^3 (test code 0.64 10*3/uL 0.36-1.02 = 742-7) EOS x10^3 (test code 0.06-0.53 L = 711-2) BASO x10^3 (test code 0.01-0.09 = 704-7) POLYCHROMASIA (test 2+ See_Comment [Automa glo code = 33399-9) message] The system which generated this result transmit glo reference range : 2+. The referen ce range was not u sed to interpret th is result as normal/abnormal . BANDS (test code = MARKED INCREASED A 5634067778) GIANT PLATELETS (test Present See_Comment A [Auto mated code = 5908-9) message] The system which generated this result transmit glo reference range : (none). The reference range was not used to interpret this result as normal/abnormal . Lab Interpretation Abnormal (test code = 07217-6) [facility] CenterETHANOL2022-07-30 14:15:23 ALCOHOL<10mg/dL11/01/2021 9:15 AM [facility]10 Zszvizjo85-090 Toxic>100 Depression of BELLMAN>400 Fatalities ReportedUnPalestine Regional Medical CenterAMMONIA, [id number] 14:14:33 Test Item Value Reference Range Interpretation Comments AMMONIA (test code = 9419331707) 9-33 L Lab Interpretation (test code = Abnormal 37309-5) [facility]. METABOLIC PANEL (86740)2021-11-01 14:12:12 Test Item Value Reference Range Interpretation Comments NA (test code = 141 mmol/L 135-145 8561681278) K (test code = 6.6 mmol/L 3.5-5 HH 8405952163) CL (test code = 101 mmol/L 98-108 8001989516) CO2 TOTAL (test code = 31 mmol/L 23-31 2820794223) AGAP (test code = 2-16 4577159903) BUN (test code = 47 mg/dL 7-23 H 8297216632) GLUCOSE (test code = 146 mg/dL 70-110 H 3855215911) CREATININE (test code = 2.05 mg/dL 0.6-1.25 H 1047131616) TOTAL BILI (test code = 0.6 mg/dL 0.1-1.7 6314183823) CALCIUM (test code = 8.4 mg/dL 8.6-10.6 L 2856524917) T PROTEIN (test code = 7.6 g/dL 6.3-8.2 6137863692) ALBUMIN (test code = 4.3 g/dL 3.5-5 1621926907) ALK PHOS (test code = 100 U/L 34-122 0590193012) ALTv (test code = 17 U/L 5-50 1742-6) AST(SGOT) (test code = 28 U/L 13-40 9939747404) eGFR (test code = mL/min/1.73m2 7879198815) MEG (test code = MEG) Association of Glomerular Filtration Rate (GFR) and Staging of Kidney Disease* + --+ --+ ------+| GFR (mL/min/1.73 m2) ?| With Kidney Damage ?| ?Without Kidney Damage+ --------+ --------+ +| ?>90 ?| ?Stage one ?| ? Normal ?+ ---+ ---+ -------+| ?60-89 ?| ?Stage two ?| ? Decreased GFR ? + --+ --+ ------+| ?30-59 ?| ?Stage three ?| ? Stage three ? + --+ --+ ------+| ?15-29 ?| ?Stage four ? | ? Stage four ?+ ---+ ---+ -------+| ?<15 (or dialysis) ? ?| ?Stage five ? | ? Stage five ?+ ---+ ---+ -------+ *Each stage assumes the associated GFR level has been in effect for at least three months. ?Stages 1 to 5, with or without kidney disease, indicate chronic kidney disease. Notes: Determination of stages one and two (with eGFR >59mL/min/1.73 m2) requires estimation of kidney damage for at least three months as defined by structural or functional abnormalities of the kidney, manifested by either:Pathological abnormalities or Markers of kidney damage (including abnormalities in the composition of the blood or urine or abnormalities in imaging tests). Lab Interpretation Abnormal (test code = 76662-8) [facility] CenterTROPONIN [id number] 14:08:15 Test Item Value Reference Interpretation Comments Range TROPONIN I (test 0.012 ng/mL See_Comment [Automated code = 2558457689) message] The system which generated this result transmitted reference range : <=0.034. The reference range was not used to interpret this result as normal/abnormal . MEG (test code = Reference (Normal) MEG) Range (defined by the 99th percentile reference limit): <= 0.034 ng/mL Note: Cardiac troponin begins to rise 3-4 hours after the onset of ischemia. Repeat in 4-6 hours if the sample was drawn within 3-4 hours of the onset of the symptom and found normal. Diagnosis of myocardial injury is made with acute changes in cTn concentrations with at least one serial sample above the 99th percentile upper reference limit (URL), taken together with the patient's clinical presentation. Biotin has been reported to cause a negative bias, interpret results relative to patient's use of biotin. Lab Interpretation Normal (test code = 07842-7) [facility] CenterN-TERMINAL [id number] 14:05:00 Test Item Value Reference Range Interpretation Comments NT-proBNP (test code 819 pg/mL See_Comment H [Autom ated = 8204871570) message] The system which generated this result transmitted reference range : <=125. The reference range was not used to interpret this result as normal/abnormal . MEG (test code = MEG) Biotin has been reported to cause a negative bias, interpret results relative to patient's use of biotin. Lab Interpretation Abnormal (test code = 77140-1) [facility] CenterMAG[facility]UM2022-07-30 13:56:56 Test Item Value Reference Range Interpretation Comments MAGNESIUM (test code = 7031988638) 2.3 mg/dL 1.7-2.4 Lab Interpretation (test code = Normal 61171-5) [facility]- CTA CHEST FOR [id number] 02:02:00 [facility] 1955 Sex: M Name: ALONDRA PAIGE [facility] : 1955 Age/S: 65 / M [address] [place] Unit #: [id number] Loc: [place] [address] Phys: Skyler Huber MD Acct: [id number] Dis Date: Status: REG REF PHONE #: [phone] Exam Date: 05/11/2021 0141 FAX #: Reason: hypoxemia, on d-dimer 1639 EXAMS: CPT: [id number] [place] [address] EXAM: - CTA CHEST FOR PE LOCATION: H57 HISTORY: 65 years-year old Male with hypoxemia, on d-dimer 1639 TECHNIQUE: Axial tomograms through the chest were obtained afterintravenous contrast utilizing pulmonary embolus protocol. Coronal and sagittal reformatted images are provided. At least one MIP sequence was provided. This exam was performed according to our departmental dose-optimization program, which includes automated exposure control, adjustment of the mA and/or kV according to patient size and/or use of iterative reconstruction technique. COMPARISON: None available time of interpretation. FINDINGS: Vasculature: No filling defects are seen in the pulmonary arteries to the segmental level. The pulmonary trunk and main pulmonary arteries are normal in caliber.The thoracic aorta is normal in caliber with scattered atherosclerotic calcifications without dissection. Coronary artery calcifications. Lungs: The lungs are clear. Pleura: No effusions or pneumothora x. Mediastinal: There is no pericardial effusion. The trachea is unremarkable. The esophagus is grossly unremarkable. Lymph nodes: There is no mediastinal, hilar, or axillary adenopathy. Bones: No acute osseous findings. Soft tissues: Partially visualized left axillary and subclavian stranding and edema is likely postsurgical in nature. Visualized abdomen: Unremarkable. IMPRESSION: 1. No pulmonaryembolism to the segmental level. 2. Partially visualized left axillary and subclavian stranding and PAGE 1 Signed Report (CONTINUED) Name: ALONDRA PAIGE : 1955 Age/S: 65 / M [address] [address] [place] Unit #: [id number] Loc: [place] [address] Phys: Skyler Huber MD Acct: [id number] Date: Status: REG REF PHONE #: [phone] Exam Date: 05/11/2021 0141 FAX #: Reason: hypoxemia, on 41 02 d-dimer 1639 EXAMS: CPT: [id number] [place] [address] (Continued) edema is likely postsurgical in nature. Correlate with clinical history. at 0202 Reported and signed by: Lucas Gandhi M.D. CC: Lidia Huber MD Technologist:Angelica Emery, RT(R)(CT) CTDI: DLP: Trnscb Date/Time: 05/11/2021 (201) [email or web address] Orig Print D/T: S: 05/11/2021 (204) PAGE 2 Signed Report- CTA CHEST FOR PE 2021-05-11 02:02:00 [facility] : 1955 Sex: M Name: ALONDRA PAIGE [facility] : 1955 Age/S: 65 / M [address] [address] [place] Unit #: [id number] Loc: [place] [address] Phys: Skyler Huber MD Acct: [id number] Dis Date: Status: REG REF PHONE #: [phone] Exam Date: 05/11/2021 014 FAX #: Reason: hypoxemia, on 41 02 d-dimer 1639 EXAMS: CPT: [id number] [place] [address] EXAM: - CTA CHEST FOR PE LOCATION: H57 HISTORY: 65 years-year old Male with hypoxemia, on 41 02 d-dimer 1639 TECHNIQUE: Axial tomograms through the chest were obtained afterintravenous contrast utilizing pulmonary embolus protocol. Coronal and sagittal reformatted images are provided. At least one MIP sequence was provided. This exam was performed according to our departmental dose-optimization program, which includes automated exposure control, adjustment of the mA and/or kV according to patient size and/or use of iterative reconstruction technique. COMPARISON: None available time of interpretation. FINDINGS: Vasculature: No filling defects are seen in the pulmonary arteries to the segmental level. The pulmonary trunk and main pulmonary arteries are normal in caliber.The thoracic aorta is normal in caliber with scattered atherosclerotic calcifications without dissection. Coronary artery calcifications. Lungs: The lungs are clear. Pleura: No effusions or pneumothora x. Mediastinal: There is no pericardial effusion. The trachea is unremarkable. The esophagus is grossly unremarkable. Lymph nodes: There is no mediastinal, hilar, or axillary adenopathy. Bones: No acute osseous findings. Soft tissues: Partially visualized left axillary and subclavian stranding and edema is likely postsurgical in nature. Visualized abdomen: Unremarkable. IMPRESSION: 1. No pulmonary embolism to the segmental level. 2. Partially visualized left axillary and subclavian stranding and PAGE 1 Signed Report (CONTINUED) Name: ALONDRA PAIGE : 1955 Age/S: 65 / M [address] [place] Unit #: [id number] Loc: [place] [address] Phys: Skyler Huber MD Acct: [id number] DisDate: Status: REG REF PHONE #: [phone] Exam Date: 05/11/2021 014 FAX #: Reason: hypoxemia, on d-dimer 1639 EXAMS: CPT: [id number] [place] [address] <Continued> edema is likely postsurgical in nature. Correlate with clinical history. at 0202 Reported and signed by: Lucas Gandhi M.D. CC: Lidia Huber MD Technologist:Angelica Emery, RT(R)(CT) CTDI: DLP: Trnscb Date/Time: 05/11/2021 (020)t.SDR.MKW1 Orig Print D/T: S: 05/11/2021 (204) PAGE 2 Signed GdrsvdU-[id number] 22:10:00 Test Item Value Reference Range Interpretation Comments D-DIMER (test 1639 ng/mLFEU 215-500 HH THROMBOSIS AN D/OR PULMONARY code = EMBOLISM AND TH E CLINICAL DDIMER) CUT-OFF VALUE F OR EXCLUSION (500 ng/mL FEU) OF THESE CONDITIONSIS VA LIDATED BY THE MANUFACTURE R OF THE METHOD. A NEGAT ALEX D-DIMER RESULT WHEN COM BINED WITH A CLINICALASSESSM ENT OF LOW PRETEST PROBABI LITY HAS BEEN SHOWN TO H AVEA HIGH NEGATIVE PREDIC TIVE VALUE OF DVT OR PE. D -DIMER VALUES >500 ng/ mL FEU ARE NOT DIAGNOSTIC FOR DVT, PEor DIC WITHOU T OTHER CONFIRMATORY TE STS AND APPROPRIATECLIN ICAL EUALUATIONS. CHEM [id number] 12:38:00 Test Item Value Reference Range Interpretation Comments Magnesium Lvl (test code = Magnesium 2.2 1.8-2.4 Lvl) [facility] [id number] 12:38:00 Test Item Value Reference Range Interpretation Comments Phosphorus (test code = Phosphorus) 3.6 2.5-4.5 [place] 121732-02-04 12:38:00 Test Item Value Reference Range Interpretation Comments Glucose Lvl (test code = Glucose Lvl) 175 70-99 [place] 121732-02-04 12:38:00 Test Item Value Reference Range Interpretation Comments BUN (test code = BUN) 17 7-22 [place] 121732-02-04 12:38:00 Test Item Value Reference Range Interpretation Comments Creatinine Lvl (test code = Creatinine 1.30 0.50-1.40 Lvl) [place] 121732-02-04 12:38:00 Test Item Value Reference Range Interpretation Comments Sodium Lvl (test code = Sodium Lvl) 139 135-145 [place] 121732-02-04 12:38:00 Test Item Value Reference Range Interpretation Comments Potassium Lvl (test code = Potassium 3.9 3.5-5.1 Lvl) [facility]2022-02-04 12:38:00 Test Item Value Reference Range Interpretation Comments Chloride Lvl (test code = Chloride Lvl) 104 95-109 [place] 121732-02-04 12:38:00 Test Item Value Reference Range Interpretation Comments CO2 (test code = CO2) 33 24-[address] [facility]2022-02-04 12:38:00 Test Item Value Reference Range Interpretation Comments Calcium Lvl (test code = Calcium Lvl) 9.0 8.5-10.[address] [facility]2022-02-04 12:38:00 Test Item Value Reference Range Interpretation Comments AGAP (test code = AGAP) 5.9 10.0-20.0 [place] 121732-02-04 12:38:00 Test Item Value Reference Range Interpretation Comments eGFR (test code = eGFR) 56 [facility]LontigvFXSEBBAUQS7784-82-85 12:38:00 Test Item Value Reference Range Interpretation Comments WBC (test code = WBC) 5.4 3.7-10.4 [place] 939622-02-04 12:38:00 Test Item Value Reference Range Interpretation Comments RBC (test code = RBC) 2.50 4.70-6.10 [place] [address]-02-04 12:38:00 Test Item Value Reference Range Interpretation Comments Hgb (test code = Hgb) 7.9 14.0-18.0 [place] [address]-02-04 12:38:00 Test Item Value Reference Range Interpretation Comments Hct (test code = Hct) 24.1 42.0-54.0 [place] [address]-02-04 12:38:00 Test Item Value Reference Range Interpretation Comments MCV (test code = MCV) 96.5 80.0-94.0 [place] [address]-02-04 12:38:00 Test Item Value Reference Range Interpretation Comments MCH (test code = MCH) 31.8 pg 27.0-31.0 [place] [address]-02-04 12:38:00 Test Item Value Reference Range Interpretation Comments MCHC (test code = MCHC) 32.9 32.0-36.0 [place] 939622-02-04 12:38:00 Test Item Value Reference Range Interpretation Comments RDW (test code = RDW) 17.9 11.5-14.5 [place] [address]-02-04 12:38:00 Test Item Value Reference Range Interpretation Comments Platelet (test code = Platelet) 176 133-450 [place] [address]-02-04 12:38:00 Test Item Value Reference Range Interpretation Comments MPV (test code = MPV) 7.6 7.4-10.4 [place] [address]-02-04 12:38:00 Test Item Value Reference Range Interpretation Comments Segs (test code = Segs) 69.1 45.0-75.0 [place] 939622-02-04 12:38:00 Test Item Value Reference Range Interpretation Comments Lymphocytes (test code = Lymphocytes) 15.2 20.0-40.0 [place] [address]-02-04 12:38:00 Test Item Value Reference Range Interpretation Comments Monocytes (test code = Monocytes) 11.5 2.0-12.0 [place] [address]-02-04 12:38:00 Test Item Value Reference Range Interpretation Comments Eosinophils (test code = 3.6 See_Comment [A utomated message] The Eosinophils) system which ge nerated this result tra nsmitted reference range : <=4.0. The reference r delano was not used to int erpret this result as normal/abnormal . [place] 939622-02-04 12:38:00 Test Item Value Reference Range Interpretation Comments Basophils (test code = 0.6 See_Comment [Aut omated message] The Basophils) system which ge nerated this result tra nsmitted reference range : <=1.0. The reference r delano was not used to int erpret this result as normal/abnormal . [place] 939622-02-04 12:38:00 Test Item Value Reference Range Interpretation Comments Neutrophils # (test code = Neutrophils 3.7 1.5-8.1 #) [place] 939622-02-04 12:38:00 Test Item Value Reference Range Interpretation Comments Lymphocytes # (test code = Lymphocytes 0.8 1.0-5.5 #) [place] 939622-02-04 12:38:00 Test Item Value Reference Range Interpretation Comments Monocytes # (test code 0.6 See_Comment [Aut omated message] The = Monocytes #) system which generated this result tra nsmitted reference range : <=0.8. The reference r delano was not used to int erpret this result as normal/abnormal . [facility] HospitalJlbkzgxJEHDDWSALC7210-64-14 12:38:00 Test Item Value Reference Range Interpretation Comments Eosinophils # (test code 0.2 See_Comment [A utomated message] The = Eosinophils #) system whic h generated this result tra nsmitted reference range : <=0.5. The reference r delano was not used to int erpret this result as normal/abnormal . [place] 939622-02-03 19:19:00 Test Item Value Reference Range Interpretation Comments PTT (test code = PTT) 79.0 s 22.9-35.8 [place] [address]-02-03 11:31:00 Test Item Value Reference Range Interpretation Comments PTT (test code = PTT) 51.3 s 22.9-35.8 [place] 121732-02-03 11:29:00 Test Item Value Reference Range Interpretation Comments Magnesium Lvl (test code = Magnesium 2.0 1.8-2.4 Lvl) [place] 121732-02-03 11:29:00 Test Item Value Reference Range Interpretation Comments Glucose Lvl (test code = Glucose Lvl) 162 70-99 [place] 121732-02-03 11:29:00 Test Item Value Reference Range Interpretation Comments BUN (test code = BUN) 16 7-22 [place] 121732-02-03 11:29:00 Test Item Value Reference Range Interpretation Comments Creatinine Lvl (test code = Creatinine 1.21 0.50-1.40 Lvl) [place] 121732-02-03 11:29:00 Test Item Value Reference Range Interpretation Comments Sodium Lvl (test code = Sodium Lvl) 140 135-145 [place] 121732-02-03 11:29:00 Test Item Value Reference Range Interpretation Comments Potassium Lvl (test code = Potassium 3.7 3.5-5.1 Lvl) [place] 121732-02-03 11:29:00 Test Item Value Reference Range Interpretation Comments Chloride Lvl (test code = Chloride Lvl) 104 95-109 [place] 121732-02-03 11:29:00 Test Item Value Reference Range Interpretation Comments CO2 (test code = CO2) 31 24-32 [place] 121732-02-03 11:29:00 Test Item Value Reference Range Interpretation Comments Calcium Lvl (test code = Calcium Lvl) 9.1 8.5-10.5 [place] 121732-02-03 11:29:00 Test Item Value Reference Range Interpretation Comments AGAP (test code = AGAP) 8.7 10.0-20.0 [place] 121732-02-03 11:29:00 Test Item Value Reference Range Interpretation Comments eGFR (test code = eGFR) 62 [place] 121732-02-03 11:29:00 Test Item Value Reference Range Interpretation Comments Phosphorus (test code = Phosphorus) 2.6 2.5-4.5 [place] 939622-02-03 11:29:00 Test Item Value Reference Range Interpretation Comments Segs (test code = Segs) 60.9 45.0-75.0 [place] [address]-02-03 11:29:00 Test Item Value Reference Range Interpretation Comments Lymphocytes (test code = Lymphocytes) 24.1 20.0-40.0 [place] [address]-02-03 11:29:00 Test Item Value Reference Range Interpretation Comments Monocytes (test code = Monocytes) 10.6 2.0-12.0 [place] 939622-02-03 11:29:00 Test Item Value Reference Range Interpretation Comments Eosinophils (test code = 3.8 See_Comment [A utomated message] The Eosinophils) system which ge nerated this result tra nsmitted reference range : <=4.0. The reference r delano was not used to int erpret this result as normal/abnormal . [place] 939622-02-03 11:29:00 Test Item Value Reference Range Interpretation Comments Basophils (test code = 0.6 See_Comment [Aut omated message] The Basophils) system which ge nerated this result tra nsmitted reference range : <=1.0. The reference r delano was not used to int erpret this result as normal/abnormal . [place] 939622-02-03 11:29:00 Test Item Value Reference Range Interpretation Comments Neutrophils # (test code = Neutrophils 3.8 1.5-8.1 #) [place] 939622-02-03 11:29:00 Test Item Value Reference Range Interpretation Comments Lymphocytes # (test code = Lymphocytes 1.5 1.0-5.5 #) [facility] HospitalXxnxqjmDEDVUFEEWD3865-01-16 11:29:00 Test Item Value Reference Range Interpretation Comments Monocytes # (test code 0.7 See_Comment [Aut omated message] The = Monocytes #) system which generated this result tra nsmitted reference range : <=0.8. The reference r delano was not used to int erpret this result as normal/abnormal . [place] 939622-02-03 11:29:00 Test Item Value Reference Range Interpretation Comments Eosinophils # (test code 0.2 See_Comment [A utomated message] The = Eosinophils #) system whic h generated this result tra nsmitted reference range : <=0.5. The reference r delano was not used to int erpret this result as normal/abnormal . [place] 939622-02-03 11:29:00 Test Item Value Reference Range Interpretation Comments WBC (test code = WBC) 6.2 3.7-10.4 [place] 939622-02-03 11:29:00 Test Item Value Reference Range Interpretation Comments RBC (test code = RBC) 2.76 4.70-6.10 [facility]VTUILIYFIL4226-32-08 11:29:00 Test Item Value Reference Range Interpretation Comments Hgb (test code = Hgb) 8.8 14.0-18.0 [facility] HospitalHnwurhyHPCMJCEHBT8468-27-08 11:29:00 Test Item Value Reference Range Interpretation Comments Hct (test code = Hct) 26.4 42.0-54.0 [facility] HospitalMyvwrldPCZCIOWRSD7374-33-27 11:29:00 Test Item Value Reference Range Interpretation Comments MCV (test code = MCV) 95.5 80.0-94.0 [facility] HospitalHspnqeiDSDBZQHGEO0696-41-79 11:29:00 Test Item Value Reference Range Interpretation Comments MCH (test code = MCH) 32.0 pg 27.0-31.0 [facility] HospitalEyschybUDUJTIDCWG9582-47-28 11:29:00 Test Item Value Reference Range Interpretation Comments MCHC (test code = MCHC) 33.5 32.0-36.0 [facility] HospitalOynzvoyXOJCYFUBBS7612-07-12 11:29:00 Test Item Value Reference Range Interpretation Comments RDW (test code = RDW) 17.2 11.5-14.5 [facility] HospitalTfjovivMRBLIOHRVN6494-52-44 11:29:00 Test Item Value Reference Range Interpretation Comments Platelet (test code = Platelet) 184 133-450 [facility] HospitalCeverloAPUXFBXDXM0440-61-39 11:29:00 Test Item Value Reference Range Interpretation Comments MPV (test code = MPV) 8.7 7.4-10.4 [facility]YdpyjlyTVEVYPQOVG2802-98-15 11:29:00 Test Item Value Reference Range Interpretation Comments Vancomycin AUC (test code = Vancomycin 25.7 AUC) [facility] HospitalDckhrgeFYCUSFHIDX7951-03-82 04:09:00 Test Item Value Reference Range Interpretation Comments PTT (test code = PTT) 76.8 s 22.9-35.8 [facility]CHE[facility] LICDA7706-97-17 11:15:00 Test Item Value Reference Range Interpretation Comments Phosphorus (test code = Phosphorus) 2.0 2.5-4.5 [facility]CHE[facility] RCJLK3545-78-60 11:15:00 Test Item Value Reference Range Interpretation Comments Magnesium Lvl (test code = Magnesium 2.3 1.8-2.4 Lvl) [facility]2022-02-02 11:15:00 Test Item Value Reference Range Interpretation Comments Glucose Lvl (test code = Glucose Lvl) 151 70-99 [place] 121732-02-02 11:15:00 Test Item Value Reference Range Interpretation Comments BUN (test code = BUN) 18 7-22 [place] 121732-02-02 11:15:00 Test Item Value Reference Range Interpretation Comments Creatinine Lvl (test code = Creatinine 1.11 0.50-1.40 Lvl) [place] 121732-02-02 11:15:00 Test Item Value Reference Range Interpretation Comments Sodium Lvl (test code = Sodium Lvl) 141 135-145 [place] 121732-02-02 11:15:00 Test Item Value Reference Range Interpretation Comments Potassium Lvl (test code = Potassium 3.7 3.5-5.1 Lvl) [place] 121732-02-02 11:15:00 Test Item Value Reference Range Interpretation Comments Chloride Lvl (test code = Chloride Lvl) 104 95-109 [place] 121732-02-02 11:15:00 Test Item Value Reference Range Interpretation Comments CO2 (test code = CO2) 32 24-32 [place] 121732-02-02 11:15:00 Test Item Value Reference Range Interpretation Comments Calcium Lvl (test code = Calcium Lvl) 9.3 8.5-10.5 [place] 121732-02-02 11:15:00 Test Item Value Reference Range Interpretation Comments AGAP (test code = AGAP) 8.7 10.0-20.0 [place] 121732-02-02 11:15:00 Test Item Value Reference Range Interpretation Comments eGFR (test code = eGFR) 68 [facility]anoVyfcdwmOFHEVJPMDT4695-88-62 11:15:00 Test Item Value Reference Range Interpretation Comments Vancomycin AUC (test code = Vancomycin 18.3 AUC) [place] 939622-02-02 00:50:00 Test Item Value Reference Range Interpretation Comments Segs (test code = Segs) 69.2 45.0-75.0 [place] 939622-02-02 00:50:00 Test Item Value Reference Range Interpretation Comments Lymphocytes (test code = Lymphocytes) 18.0 20.0-40.0 [facility] HospitalMjsurfhFICULJNFSL7020-64-34 00:50:00 Test Item Value Reference Range Interpretation Comments Monocytes (test code = Monocytes) 9.7 2.0-12.0 [facility] HospitalBlijttrJALTOMHSML2207-99-15 00:50:00 Test Item Value Reference Range Interpretation Comments Eosinophils (test code = 2.6 See_Comment [A utomated message] The Eosinophils) system which ge nerated this result tra nsmitted reference range : <=4.0. The reference r delano was not used to int erpret this result as normal/abnormal . [facility] HospitalBqhljrcBGYUEZPHAF4848-52-24 00:50:00 Test Item Value Reference Range Interpretation Comments Basophils (test code = 0.5 See_Comment [Aut omated message] The Basophils) system which ge nerated this result tra nsmitted reference range : <=1.0. The reference r delano was not used to int erpret this result as normal/abnormal . [facility] HospitalLleqaeoIDCFJDDXAB0013-80-34 00:50:00 Test Item Value Reference Range Interpretation Comments Neutrophils # (test code = Neutrophils 3.7 1.5-8.1 #) [facility] HospitalTctkwlhGWGXAHVQGZ5183-44-03 00:50:00 Test Item Value Reference Range Interpretation Comments Lymphocytes # (test code = Lymphocytes 1.0 1.0-5.5 #) [place] 939622-02-02 00:50:00 Test Item Value Reference Range Interpretation Comments Monocytes # (test code 0.5 See_Comment [Aut omated message] The = Monocytes #) system which generated this result tra nsmitted reference range : <=0.8. The reference r delano was not used to int erpret this result as normal/abnormal . [place] 939622-02-02 00:50:00 Test Item Value Reference Range Interpretation Comments Eosinophils # (test code 0.1 See_Comment [A utomated message] The = Eosinophils #) system whic h generated this result tra nsmitted reference range : <=0.5. The reference r delano was not used to int erpret this result as normal/abnormal . [place] 939622-02-02 00:50:00 Test Item Value Reference Range Interpretation Comments WBC (test code = WBC) 5.4 3.7-10.4 [facility] HospitalJsoyirdNJJXSTNCFR2757-01-05 00:50:00 Test Item Value Reference Range Interpretation Comments RBC (test code = RBC) 2.79 4.70-6.10 [facility] HospitalJspitcnNLTHRQYLYR8189-75-15 00:50:00 Test Item Value Reference Range Interpretation Comments Hgb (test code = Hgb) 8.9 14.0-18.0 [facility] HospitalGqtfokqGVSUWCLPMC1832-97-17 00:50:00 Test Item Value Reference Range Interpretation Comments Hct (test code = Hct) 26.8 42.0-54.0 [facility] HospitalXwhrvjvNAFGZASBRQ5411-82-12 00:50:00 Test Item Value Reference Range Interpretation Comments MCV (test code = MCV) 95.9 80.0-94.0 [facility] HospitalNvtldjoTWCALTSDTH4098-95-17 00:50:00 Test Item Value Reference Range Interpretation Comments MCH (test code = MCH) 31.7 pg 27.0-31.0 [facility] HospitalDtmolozHRBROXFKYO9296-23-95 00:50:00 Test Item Value Reference Range Interpretation Comments MCHC (test code = MCHC) 33.1 32.0-36.0 [facility] HospitalTvkmbdaSHLGXFXMML6986-19-79 00:50:00 Test Item Value Reference Range Interpretation Comments RDW (test code = RDW) 17.3 11.5-14.5 [facility] HospitalSnzjgwqQJWKNTUSCN4356-11-28 00:50:00 Test Item Value Reference Range Interpretation Comments Platelet (test code = Platelet) 122 133-450 [facility] HospitalEtaprwtLBEUARNQDJ2579-37-84 00:50:00 Test Item Value Reference Range Interpretation Comments MPV (test code = MPV) 8.9 7.4-10.4 [facility] KEOOTVD2359-00-27 16:19:00 Test Item Value Reference Range Interpretation Comments ABO/Rh (test code = ABO/Rh) B POS [facility] [employer] JDZZPYE2420-24-08 16:19:00 Test Item Value Reference Range Interpretation Comments Antibody Scrn (test Negative (05/06/21 10:19 code = Antibody Scrn) AM) [facility]anoTibqyjeIEXVUAXQIS5142-30-49 16:19:00 Test Item Value Reference Range Interpretation Comments PT (test code = PT) 16.0 s 12.0-14.7 [facility] HospitalPfsqbjqIMYYRSETPY0556-54-26 16:19:00 Test Item Value Reference Range Interpretation Comments INR (test code = INR) 1.29 1 0.85-1.17 [facility] [id number] 15:01:00 Test Item Value Reference Range Interpretation Comments RBC product (test code Product available = RBC product) 5(05/06/21 9:01 AM) [facility]anoVdcucupBJHWXVLOUE9004-88-07 17:53:00 Test Item Value Reference Range Interpretation Comments Vancomycin AUC (test code = Vancomycin 19.5 AUC) [facility]2022-01-29 11:16:00 Test Item Value Reference Range Interpretation Comments Total Protein (test code = Total 6.2 6.4-8.4 Protein) [facility]2022-01-29 11:16:00 Test Item Value Reference Range Interpretation Comments Albumin Lvl (test code = Albumin Lvl) 2.6 3.5-5.[address] [facility]2022-01-29 11:16:00 Test Item Value Reference Range Interpretation Comments ALT (test code = ALT) 37 See_Comment [Auto mated message] The system which ge nerated this result transmit glo reference range : <=65. The reference range was not used to interpr et this result as rita l/abnormal. [facility]2022-01-29 11:16:00 Test Item Value Reference Range Interpretation Comments AST (test code = AST) 18 See_Comment [Auto mated message] The system which ge nerated this result transmit glo reference range : <=37. The reference range was not used to interpr et this result as rita l/abnormal. [facility] PWTII2429-23-82 11:16:00 Test Item Value Reference Range Interpretation Comments Alk Phos (test code = Alk Phos) 103 39-[address] [facility]2022-01-29 11:16:00 Test Item Value Reference Range Interpretation Comments Bili Total (test code = Bili Total) 0.3 0.2-1.[address] [facility]2022-01-29 11:16:00 Test Item Value Reference Range Interpretation Comments B/C Ratio (test code = B/C Ratio) 11 1 6-25 [place] 121732-01-29 11:16:00 Test Item Value Reference Range Interpretation Comments Globulin (test code = Globulin) 3.6 2.7-4.2 [facility] [employer] [id number] 11:16:00 Test Item Value Reference Range Interpretation Comments A/G Ratio (test code = A/G Ratio) 0.7 1 0.7-1.6 [facility] NortheastWtlyorhDFFDTNATWK2925-31-37 11:16:00 Test Item Value Reference Range Interpretation Comments PT (test code = PT) 13.9 s 12.0-14.7 [facility] NortheastQreczxuJHSTIRYYCY3529-73-93 11:16:00 Test Item Value Reference Range Interpretation Comments INR (test code = INR) 1.08 1 0.85-1.17 [facility] RysvyaqAZYVSHWXBU5658-86-90 11:16:00 Test Item Value Reference Range Interpretation Comments Plt Morph (test code = Normal (05/03/21 5:16 Plt Morph) AM) [facility] [employer] UGODJVT9167-28-43 21:35:00 Test Item Value Reference Range Interpretation Comments RBC product (test code Product available = RBC product) 6(05/02/21 3:35 PM) [facility] CwtsadiDSBRKVHKBK4316-80-89 12:50:00 Test Item Value Reference Range Interpretation Comments PT (test code = PT) 13.0 s 12.0-14.7 [facility] FjpakbyBUDBPPKEPA2577-82-53 12:50:00 Test Item Value Reference Range Interpretation Comments INR (test code = INR) 0.99 1 0.85-1.17 [facility] [employer] HRTWGUF4839-63-05 07:41:00 Test Item Value Reference Range Interpretation Comments ABO/Rh (test code = ABO/Rh) B POS [facility] [employer] [id number] 07:41:00 Test Item Value Reference Range Interpretation Comments Antibody Scrn (test Negative (05/01/21 1:41 code = Antibody Scrn) AM) [employer] [id number] 07:41:00 Test Item Value Reference Range Interpretation Comments Total Protein (test code = Total 7.3 6.4-8.4 Protein) [facility] [employer] [id number] 07:41:00 Test Item Value Reference Range Interpretation Comments Albumin Lvl (test code = Albumin Lvl) 3.0 3.5-5.0 [facility] [employer]2022-01-27 07:41:00 Test Item Value Reference Range Interpretation Comments ALT (test code = ALT) 64 See_Comment [Auto mated message] The system which ge nerated this result transmit glo reference range : <=65. The reference range was not used to interpr et this result as rita l/abnormal. [facility] [employer] [id number] 07:41:00 Test Item Value Reference Range Interpretation Comments AST (test code = AST) 22 See_Comment [Auto mated message] The system which ge nerated this result transmit glo reference range : <=37. The reference range was not used to interpr et this result as rita l/abnormal. [facility] [employer] [id number] 07:41:00 Test Item Value Reference Range Interpretation Comments Alk Phos (test code = Alk Phos) 154 39-136 [facility] [employer] [id number] 07:41:00 Test Item Value Reference Range Interpretation Comments Bili Total (test code = Bili Total) 0.3 0.2-1.3 [facility] IRVSZ0007-56-00 07:41:00 Test Item Value Reference Range Interpretation Comments B/C Ratio (test code = B/C Ratio) 12 1 6-25 [facility] [employer] [id number] 07:41:00 Test Item Value Reference Range Interpretation Comments Globulin (test code = Globulin) 4.3 2.7-4.2 [facility] [employer] [id number] 07:41:00 Test Item Value Reference Range Interpretation Comments A/G Ratio (test code = A/G Ratio) 0.7 1 0.7-1.6 [facility] NortheastNdelamfLPRFXNOGVG1694-62-61 03:05:31 Test Item Value Reference Range Interpretation Comments PTT (test code = PTT) 56.2 s 22.9-35.8 [facility] NortheastYjgbafrREKSNJOFEN7514-03-41 19:07:00 Test Item Value Reference Range Interpretation Comments PT (test code = PT) 15.2 s 12.0-14.7 [facility] NortheastYzylznrVLJNWKGHBM6730-92-61 19:07:00 Test Item Value Reference Range Interpretation Comments INR (test code = INR) 1.21 1 0.85-1.17 [facility] NortheastJnrmpycITOSYGKMTA1978-68-43 19:07:00 Test Item Value Reference Range Interpretation Comments PTT (test code = PTT) 59.3 s 22.9-35.8 [facility]anoJvweizdOGLYWGGNGV9335-57-38 16:40:00 Test Item Value Reference Range Interpretation Comments Vancomycin AUC (test code = Vancomycin 19.9 AUC) [place]39622-01-23 11:59:00 Test Item Value Reference Range Interpretation Comments Segs (test code = Segs) 69.0 45.0-75.0 [place] 939622-01-23 11:59:00 Test Item Value Reference Range Interpretation Comments Lymphocytes (test code = Lymphocytes) 20.1 20.0-40.0 [place]39622-01-23 11:59:00 Test Item Value Reference Range Interpretation Comments Monocytes (test code = Monocytes) 6.9 2.0-12.0 [place]39622-01-23 11:59:00 Test Item Value Reference Range Interpretation Comments Eosinophils (test code = 3.4 See_Comment [A utomated message] The Eosinophils) system which ge nerated this result tra nsmitted reference range : <=4.0. The reference r delano was not used to int erpret this result as normal/abnormal . [place]39622-01-23 11:59:00 Test Item Value Reference Range Interpretation Comments Basophils (test code = 0.6 See_Comment [Aut omated message] The Basophils) system which ge nerated this result tra nsmitted reference range : <=1.0. The reference r delano was not used to int erpret this result as normal/abnormal . [facility] HospitalYbogconYWJNFVDKAX0156-77-60 11:59:00 Test Item Value Reference Range Interpretation Comments Neutrophils # (test code = Neutrophils 3.9 1.5-8.1 #) [place]39622-01-23 11:59:00 Test Item Value Reference Range Interpretation Comments Lymphocytes # (test code = Lymphocytes 1.1 1.0-5.5 #) [place]39622-01-23 11:59:00 Test Item Value Reference Range Interpretation Comments Monocytes # (test code 0.4 See_Comment [Aut omated message] The = Monocytes #) system which generated this result tra nsmitted reference range : <=0.8. The reference r delano was not used to int erpret this result as normal/abnormal . [facility] HospitalInhurbzXZNLZFGUAT6604-45-25 11:59:00 Test Item Value Reference Range Interpretation Comments Eosinophils # (test code 0.2 See_Comment [A utomated message] The = Eosinophils #) system whic h generated this result tra nsmitted reference range : <=0.5. The reference r delano was not used to int erpret this result as normal/abnormal . [facility] HospitalCntkbwbFQGAQWJJUD1468-72-84 11:59:00 Test Item Value Reference Range Interpretation Comments WBC (test code = WBC) 5.6 3.7-10.4 [facility] HospitalPtzuofoTTTIVZCSZH9357-66-38 11:59:00 Test Item Value Reference Range Interpretation Comments RBC (test code = RBC) 3.81 4.70-6.10 [facility] HospitalKnsxkcvJFGAQXAYWQ5156-55-33 11:59:00 Test Item Value Reference Range Interpretation Comments Hgb (test code = Hgb) 12.5 14.0-18.0 [facility] HospitalRbncfpiHHIEEQTYPB5496-63-60 11:59:00 Test Item Value Reference Range Interpretation Comments Hct (test code = Hct) 36.9 42.0-54.0 [facility] HospitalEyurxcdNFMKCUGZMH3752-39-76 11:59:00 Test Item Value Reference Range Interpretation Comments MCV (test code = MCV) 97.0 80.0-94.0 [facility] HospitalJwaozcgWYGJJKVGZB6331-80-57 11:59:00 Test Item Value Reference Range Interpretation Comments MCH (test code = MCH) 32.8 pg 27.0-31.0 [facility] HospitalNtwnxqkQAIKXSYQHW3855-48-92 11:59:00 Test Item Value Reference Range Interpretation Comments MCHC (test code = MCHC) 33.8 32.0-36.0 [facility] HospitalXvrnmliFJTCZFWERL8037-13-52 11:59:00 Test Item Value Reference Range Interpretation Comments RDW (test code = RDW) 15.4 11.5-14.5 [facility] HospitalEuxvhosILDWSBGOND1953 11:59:00 Test Item Value Reference Range Interpretation Comments Platelet (test code = Platelet) 89 133-450 [place] 939622-01-23 11:59:00 Test Item Value Reference Range Interpretation Comments MPV (test code = MPV) 8.5 7.4-10.4 [place] 939622-01-23 11:59:00 Test Item Value Reference Range Interpretation Comments PTT (test code = PTT) 35.4 s 22.9-35.8 [place] 939622-01-23 11:59:00 Test Item Value Reference Range Interpretation Comments PT (test code = PT) 14.8 s 12.0-14.7 [place] 939622-01-23 11:59:00 Test Item Value Reference Range Interpretation Comments INR (test code = INR) 1.17 1 0.85-1.17 [place] 371552-01-23 11:59:00 Test Item Value Reference Range Interpretation Comments Trig (test code = Trig) 183 [place] 371552-01-23 11:59:00 Test Item Value Reference Range Interpretation Comments Chol (test code = Chol) 103 [place] 371552-01-23 11:59:00 Test Item Value Reference Range Interpretation Comments HDL (test code = HDL) 52 [place] 371552-01-23 11:59:00 Test Item Value Reference Range Interpretation Comments CHD Risk (test code = CHD Risk) 1.98 1 4.00-7.30 [place] 371552-01-23 11:59:00 Test Item Value Reference Range Interpretation Comments LDL (Calculated) (test code = LDL 14 (Calculated)) [place] 371552-01-23 11:59:00 Test Item Value Reference Range Interpretation Comments VLDL (test code = VLDL) 37 1 [place] 939622-01-23 01:27:00 Test Item Value Reference Range Interpretation Comments PT (test code = PT) 14.5 s 12.0-14.7 [place] 939622-01-23 01:27:00 Test Item Value Reference Range Interpretation Comments INR (test code = INR) 1.14 1 0.85-1.17 [place] 939622-01-23 01:27:00 Test Item Value Reference Range Interpretation Comments WBC (test code = WBC) 5.6 3.7-10.4 [place] 939622-01-23 01:27:00 Test Item Value Reference Range Interpretation Comments RBC (test code = RBC) 3.65 4.70-6.10 [place] 939622-01-23 01:27:00 Test Item Value Reference Range Interpretation Comments Hgb (test code = Hgb) 11.8 14.0-18.0 [place] 939622-01-23 01:27:00 Test Item Value Reference Range Interpretation Comments Hct (test code = Hct) 35.3 42.0-54.0 [place] 939622-01-23 01:27:00 Test Item Value Reference Range Interpretation Comments MCV (test code = MCV) 96.8 80.0-94.0 [place] 939622-01-23 01:27:00 Test Item Value Reference Range Interpretation Comments MCH (test code = MCH) 32.2 pg 27.0-31.0 [place] 939622-01-23 01:27:00 Test Item Value Reference Range Interpretation Comments MCHC (test code = MCHC) 33.3 32.0-36.0 [place] 939622-01-23 01:27:00 Test Item Value Reference Range Interpretation Comments RDW (test code = RDW) 15.1 11.5-14.5 [facility] HospitalLonjywhYIZLNXXNYF4308-43-56 01:27:00 Test Item Value Reference Range Interpretation Comments Platelet (test code = Platelet) 97 133-450 [facility] HospitalTnkmkfsAZSVBAZLYH1688-08-60 01:27:00 Test Item Value Reference Range Interpretation Comments MPV (test code = MPV) 9.1 7.4-10.4 [place] 939622-01-23 01:27:00 Test Item Value Reference Range Interpretation Comments Segs (test code = Segs) 70.7 45.0-75.0 [place] 939622-01-23 01:27:00 Test Item Value Reference Range Interpretation Comments Lymphocytes (test code = Lymphocytes) 18.3 20.0-40.0 [place] 939622-01-23 01:27:00 Test Item Value Reference Range Interpretation Comments Monocytes (test code = Monocytes) 7.2 2.0-12.0 [facility] HospitalVfevchdVTTBPQLQPH5737-45-93 01:27:00 Test Item Value Reference Range Interpretation Comments Eosinophils (test code = 3.3 See_Comment [A utomated message] The Eosinophils) system which ge nerated this result tra nsmitted reference range : <=4.0. The reference r delano was not used to int erpret this result as normal/abnormal . [place] 939622-01-23 01:27:00 Test Item Value Reference Range Interpretation Comments Basophils (test code = 0.5 See_Comment [Aut omated message] The Basophils) system which ge nerated this result tra nsmitted reference range : <=1.0. The reference r delano was not used to int erpret this result as normal/abnormal . [place] 939622-01-23 01:27:00 Test Item Value Reference Range Interpretation Comments Neutrophils # (test code = Neutrophils 4.0 1.5-8.1 #) [place] 939622-01-23 01:27:00 Test Item Value Reference Range Interpretation Comments Lymphocytes # (test code = Lymphocytes 1.0 1.0-5.5 #) [place] 939622-01-23 01:27:00 Test Item Value Reference Range Interpretation Comments Monocytes # (test code 0.4 See_Comment [Aut omated message] The = Monocytes #) system which generated this result tra nsmitted reference range : <=0.8. The reference r delano was not used to int erpret this result as normal/abnormal . [facility] HospitalXjdqtnbJSBEWZKBPW6976-29-78 01:27:00 Test Item Value Reference Range Interpretation Comments Eosinophils # (test code 0.2 See_Comment [A utomated message] The = Eosinophils #) system whic h generated this result tra nsmitted reference range : <=0.5. The reference r delano was not used to int erpret this result as normal/abnormal . [facility]2022-01-22 10:18:00 Test Item Value Reference Range Interpretation Comments Glucose Lvl (test code = Glucose Lvl) 220 70-99 [place] 121732-01-22 10:18:00 Test Item Value Reference Range Interpretation Comments BUN (test code = BUN) 23 7-22 [place] 121732-01-22 10:18:00 Test Item Value Reference Range Interpretation Comments Creatinine Lvl (test code = Creatinine 1.25 0.50-1.40 Lvl) [facility]2022-01-22 10:18:00 Test Item Value Reference Range Interpretation Comments Sodium Lvl (test code = Sodium Lvl) 140 135-145 [place] 121732-01-22 10:18:00 Test Item Value Reference Range Interpretation Comments Potassium Lvl (test code = Potassium 5.0 3.5-5.1 Lvl) [place] 121732-01-22 10:18:00 Test Item Value Reference Range Interpretation Comments Chloride Lvl (test code = Chloride Lvl) 106 95-109 [place] 121732-01-22 10:18:00 Test Item Value Reference Range Interpretation Comments CO2 (test code = CO2) 32 24-32 [place] 121732-01-22 10:18:00 Test Item Value Reference Range Interpretation Comments Calcium Lvl (test code = Calcium Lvl) 8.9 8.5-10.5 [place] 121732-01-22 10:18:00 Test Item Value Reference Range Interpretation Comments Total Protein (test code = Total 7.0 6.4-8.4 Protein) [place] 121732-01-22 10:18:00 Test Item Value Reference Range Interpretation Comments Albumin Lvl (test code = Albumin Lvl) 3.2 3.5-5.0 [place] 121732-01-22 10:18:00 Test Item Value Reference Range Interpretation Comments ALT (test code = ALT) 60 See_Comment [Auto mated message] The system which ge nerated this result transmit glo reference range : <=65. The reference range was not used to interpr et this result as rita l/abnormal. [place] 121732-01-22 10:18:00 Test Item Value Reference Range Interpretation Comments AST (test code = AST) 24 See_Comment [Auto mated message] The system which ge nerated this result transmit glo reference range : <=37. The reference range was not used to interpr et this result as rita l/abnormal. [place] 121732-01-22 10:18:00 Test Item Value Reference Range Interpretation Comments Alk Phos (test code = Alk Phos) 140 39-136 [place] 121732-01-22 10:18:00 Test Item Value Reference Range Interpretation Comments Bili Total (test code = Bili Total) 0.3 0.2-1.3 [place] 121732-01-22 10:18:00 Test Item Value Reference Range Interpretation Comments AGAP (test code = AGAP) 7.0 10.0-20.[address] [facility]2022-01-22 10:18:00 Test Item Value Reference Range Interpretation Comments B/C Ratio (test code = B/C Ratio) 18 1 6-25 [place] 121732-01-22 10:18:00 Test Item Value Reference Range Interpretation Comments Globulin (test code = Globulin) 3.8 2.7-4.2 [place] 121732-01-22 10:18:00 Test Item Value Reference Range Interpretation Comments A/G Ratio (test code = A/G Ratio) 0.8 1 0.7-1.6 [place] 121732-01-22 10:18:00 Test Item Value Reference Range Interpretation Comments eGFR (test code = eGFR) [address] [facility]2022-01-22 10:18:00 Test Item Value Reference Range Interpretation Comments Glucose Lvl (test code = Glucose Lvl) 220 70-[address] [facility]2022-01-22 10:18:00 Test Item Value Reference Range Interpretation Comments BUN (test code = BUN) 23 7-[address] [facility]2022-01-22 10:18:00 Test Item Value Reference Range Interpretation Comments Creatinine Lvl (test code = Creatinine 1.25 0.50-1.40 Lvl) [facility]2022-01-22 10:18:00 Test Item Value Reference Range Interpretation Comments Sodium Lvl (test code = Sodium Lvl) 140 135-145 [place] 121732-01-22 10:18:00 Test Item Value Reference Range Interpretation Comments Potassium Lvl (test code = Potassium 5.0 3.5-5.1 Lvl) [place] 121732-01-22 10:18:00 Test Item Value Reference Range Interpretation Comments Chloride Lvl (test code = Chloride Lvl) 106 95-[address] [facility]2022-01-22 10:18:00 Test Item Value Reference Range Interpretation Comments CO2 (test code = CO2) 32 24-32 [place] 121732-01-22 10:18:00 Test Item Value Reference Range Interpretation Comments Calcium Lvl (test code = Calcium Lvl) 8.9 8.5-10.5 [place] 121732-01-22 10:18:00 Test Item Value Reference Range Interpretation Comments AGAP (test code = AGAP) 7.0 10.0-20.0 [facility] [id number] 10:18:00 Test Item Value Reference Range Interpretation Comments eGFR (test code = eGFR) 59 [facility] HospitalVucjdtqBRTNUFARMY5251-05-49 10:18:00 Test Item Value Reference Range Interpretation Comments Segs (test code = Segs) 68.9 45.0-75.0 [place] 939622-01-22 10:18:00 Test Item Value Reference Range Interpretation Comments Lymphocytes (test code = Lymphocytes) 19.0 20.0-40.0 [place] 939622-01-22 10:18:00 Test Item Value Reference Range Interpretation Comments Monocytes (test code = Monocytes) 8.1 2.0-12.0 [place] 939622-01-22 10:18:00 Test Item Value Reference Range Interpretation Comments Eosinophils (test code = 3.4 See_Comment [A utomated message] The Eosinophils) system which ge nerated this result tra nsmitted reference range : <=4.0. The reference r delano was not used to int erpret this result as normal/abnormal . [place] 939622-01-22 10:18:00 Test Item Value Reference Range Interpretation Comments Basophils (test code = 0.6 See_Comment [Aut omated message] The Basophils) system which ge nerated this result tra nsmitted reference range : <=1.0. The reference r delano was not used to int erpret this result as normal/abnormal . [place] 939622-01-22 10:18:00 Test Item Value Reference Range Interpretation Comments Neutrophils # (test code = Neutrophils 3.8 1.5-8.1 #) [place] 939622-01-22 10:18:00 Test Item Value Reference Range Interpretation Comments Lymphocytes # (test code = Lymphocytes 1.0 1.0-5.5 #) [place] 939622-01-22 10:18:00 Test Item Value Reference Range Interpretation Comments Monocytes # (test code 0.4 See_Comment [Aut omated message] The = Monocytes #) system which generated this result tra nsmitted reference range : <=0.8. The reference r delano was not used to int erpret this result as normal/abnormal . [facility] HospitalYjuzacuDHDWMUTWPP1405-85-95 10:18:00 Test Item Value Reference Range Interpretation Comments Eosinophils # (test code 0.2 See_Comment [A utomated message] The = Eosinophils #) system whic h generated this result tra nsmitted reference range : <=0.5. The reference r delano was not used to int erpret this result as normal/abnormal . [facility] HospitalXslgsruSTHWLJVZZY1089-13-99 10:18:00 Test Item Value Reference Range Interpretation Comments WBC (test code = WBC) 5.5 3.7-10.4 [place] 939622-01-22 10:18:00 Test Item Value Reference Range Interpretation Comments RBC (test code = RBC) 3.61 4.70-6.10 [place] 939622-01-22 10:18:00 Test Item Value Reference Range Interpretation Comments Hgb (test code = Hgb) 11.7 14.0-18.0 [facility] HospitalVxtumrcFNALUIAUIQ5118-40-86 10:18:00 Test Item Value Reference Range Interpretation Comments Hct (test code = Hct) 34.9 42.0-54.0 [facility] HospitalVacmqpkFXTDURCYDE0261-66-59 10:18:00 Test Item Value Reference Range Interpretation Comments MCV (test code = MCV) 96.7 80.0-94.0 [facility] HospitalVqtfobzXJJFAEIBEK5062-42-05 10:18:00 Test Item Value Reference Range Interpretation Comments MCH (test code = MCH) 32.3 pg 27.0-31.0 [facility] HospitalFkoihjaTHISJBWNPD2567-06-72 10:18:00 Test Item Value Reference Range Interpretation Comments MCHC (test code = MCHC) 33.5 32.0-36.0 [place] 939622-01-22 10:18:00 Test Item Value Reference Range Interpretation Comments RDW (test code = RDW) 15.3 11.5-14.5 [place] 939622-01-22 10:18:00 Test Item Value Reference Range Interpretation Comments Platelet (test code = Platelet) 94 133-450 [place] 939622-01-22 10:18:00 Test Item Value Reference Range Interpretation Comments MPV (test code = MPV) 8.7 7.4-10.4 [facility] [id number] 05:27:00 Test Item Value Reference Range Interpretation Comments MRSA by PCR (test Positive 1*ABN*(04/25/21 code = MRSA by PCR) 11:27 PM) [facility] TTJNZIGDO6538-26-27 10:27:00 Test Item Value Reference Range Interpretation Comments Hgb A1C (test code = Hgb A1C) 7.8 [facility]MLIXKN[facility]44[facility] 03:19:00 Test Item Value Reference Range Interpretation Comments Vancomycin AUC (test code = Vancomycin 32.0 AUC) [facility] FLOYYID0392-90-09 02:19:00 Test Item Value Reference Range Interpretation Comments ABO/Rh (test code = ABO/Rh) B POS [facility] [employer] [id number] 02:19:00 Test Item Value Reference Range Interpretation Comments Antibody Scrn (test Negative (04/24/21 8:19 code = Antibody Scrn) PM) [facility] [employer] [id number] 22:56:00 Test Item Value Reference Range Interpretation Comments Glucose Lvl (test code = Glucose Lvl) 265 70-99 [facility] [employer] [id number] 22:56:00 Test Item Value Reference Range Interpretation Comments BUN (test code = BUN) 25 7-22 [facility] [employer] [id number] 22:56:00 Test Item Value Reference Range Interpretation Comments Creatinine Lvl (test code = Creatinine 1.24 0.50-1.40 Lvl) [facility] [employer] [id number] 22:56:00 Test Item Value Reference Range Interpretation Comments Sodium Lvl (test code = Sodium Lvl) 137 135-145 [facility] RORLM3269-97-30 22:56:00 Test Item Value Reference Range Interpretation Comments Potassium Lvl (test code = Potassium 4.8 3.5-5.1 Lvl) [facility] [employer]2022-01-20 22:56:00 Test Item Value Reference Range Interpretation Comments Chloride Lvl (test code = Chloride Lvl) 99 95-109 [facility] [employer] [id number] 22:56:00 Test Item Value Reference Range Interpretation Comments CO2 (test code = CO2) 35 24-32 [facility] [employer] [id number] 22:56:00 Test Item Value Reference Range Interpretation Comments Calcium Lvl (test code = Calcium Lvl) 9.3 8.5-10.5 [place] [address]-01-20 22:56:00 Test Item Value Reference Range Interpretation Comments AGAP (test code = AGAP) 7.8 10.0-20.0 [place] [address]-01-20 22:56:00 Test Item Value Reference Range Interpretation Comments eGFR (test code = eGFR) 60 [facility] HospitalSnyofenFAVVXPKOQW7133-73-73 22:56:00 Test Item Value Reference Range Interpretation Comments Basophils # (test code 0.1 See_Comment [Aut omated message] The = Basophils #) system which generated this result tra nsmitted reference range : <=0.2. The reference r delano was not used to int erpret this result as normal/abnormal . [place] [address]-01-20 17:14:00 Test Item Value Reference Range Interpretation Comments Total Protein (test code = Total 8.7 6.4-8.4 Protein) [place] 121732-01-20 17:14:00 Test Item Value Reference Range Interpretation Comments Albumin Lvl (test code = Albumin Lvl) 3.9 3.5-5.0 [place] 121732-01-20 17:14:00 Test Item Value Reference Range Interpretation Comments ALT (test code = ALT) 78 See_Comment [Auto mated message] The system which ge nerated this result transmit glo reference range : <=65. The reference range was not used to interpr et this result as rita l/abnormal. [place] [address]-01-20 17:14:00 Test Item Value Reference Range Interpretation Comments AST (test code = AST) 27 See_Comment [Auto mated message] The system which ge nerated this result transmit glo reference range : <=37. The reference range was not used to interpr et this result as rita l/abnormal. [place] 121732-01-20 17:14:00 Test Item Value Reference Range Interpretation Comments Alk Phos (test code = Alk Phos) 164 39-136 [place] 121732-01-20 17:14:00 Test Item Value Reference Range Interpretation Comments Bili Total (test code = Bili Total) 0.2 0.2-1.[address] [facility]2022-01-20 17:14:00 Test Item Value Reference Range Interpretation Comments B/C Ratio (test code = B/C Ratio) 20 1 6-[address] [facility]2022-01-20 17:14:00 Test Item Value Reference Range Interpretation Comments Globulin (test code = Globulin) 4.8 2.7-4.[address] [facility]2022-01-20 17:14:00 Test Item Value Reference Range Interpretation Comments A/G Ratio (test code = A/G Ratio) 0.8 1 0.7-1.6 [facility] HospitalVpdwlxmICXPVHQLIB1902-28-14 15:08:00 Test Item Value Reference Range Interpretation Comments Sed Rate (test code = 55 See_Comment [Auto mated message] The Sed Rate) system which ge nerated this result transmit glo reference range : <=15. The reference range was not used to interpr et this result as rita l/abnormal. [facility]XUWKQRKQFZ9071[facility]43-35 15:08:00 Test Item Value Reference Range Interpretation Comments C-REACTIVE PROTEIN (test code = 8.2 C-REACTIVE PROTEIN) [facility]2022-01-20 14:48:00 Test Item Value Reference Range Interpretation Comments Lactic Acid Lvl (test code = Lactic 1.5 0.5-2.2 Acid Lvl) [facility] CenterOqozkrzBPDGQMEXXR7526-72-82 14:48:00 Test Item Value Reference Range Interpretation Comments Coronavirus (COVID-19) Not Detected (04/24/21 NASIMA (test code = 8:48 AM) Coronavirus (COVID-19) NASIMA) [facility] [id number] 19:08:00 Test Item Value Reference Range Interpretation Comments GLUCOSE BEDSIDE TESTING (test code = 89 mg/dL 70-110 N GLUBED) GLUCOSE BEDSIDE [id number] 15:26:00 Test Item Value Reference Range Interpretation Comments GLUCOSE BEDSIDE TESTING (test code 157 mg/dL 70-110 H = GLUBED) GLUCOSE BEDSIDE [id number] 15:26:00 Test Item Value Reference Range Interpretation Comments GLUCOSE BEDSIDE TESTING (test code = 67 mg/dL 70-110 L GLUBED) - CT HEAD/BRAIN W/O [id number] 14:55:00 [facility] 1955 Sex: M Name: ALONDRA PAIGE [facility] : 1955 Age/S: 64 / M [id number] [place] Unit #: [id number] Loc: [place] [address] Phys: Karlos Garrido MD Acct: [id number] Dis Date: Status: ADM IN PHONE #: [phone] Exam Date: 09/27/2020 1449 FAX #: Reason: BOUTS OF CONFUSION OVER NIGHT EXAMS: CPT: [id number] CT HEAD/BRAIN W/O CONT [id number] HISTORY: Transient alteration of awareness Location code: B2 TECHNIQUE: Contiguous 5 mm axial images of the head were obtained from the skullbase to the vertex. Dose lowering technique with automatic exposure control utilized. FINDINGS: There is mild central and cortical atrophy. Mild areas of decreased attenuation are seen in the subcortical and periventricular white matter consistent with chronic microvascular ischemic changes. There is no space-occupying mass, mass effect or midline shift. No intra-axial or extra- axial fluid accumulation is seen. Mild atherosclerosiscarotid siphons. No calvarial osseous or scalp soft tissue abnormalities are noted. IMPRESSION: 1. No acute intracranial process. 2. Mild central and cortical atrophy. 3. Chronic microvascular ischemicchanges in the white matter. at 1455 Reported and signed by: Donnie Hodgson M.D. CC: Karlos Garrido MD; Karen Fernandez MD Technologist:Lilliam Jimenez RT(R)(CT); Jos CTDI: DLP: Trnscb Date/Time: 09/27/2020 (1455) [email or web address] Orig Print D/T: S: 09/27/2020 (3553) PAGE 1 Signed ReportPROTHROMBIN [id number] 09:22:00 Test Item Value Reference Range Interpretation Comments PT PATIENT (test code = PTP) 13.1 SECONDS 9.3-12.9 H INTERNATIONAL NORMAL RATIO 1.17 INR Unit 0.8-1.2 N (test code = INR) THROMBOPLASTIN TIME [id number] 09:22:00 Test Item Value Reference Range Interpretation Comments THROMBOPLASTIN TIME PARTIAL 37.0 SECONDS 26-35 H (test code = PTT) [id number] 09:09:00 Test Item Value Reference Range Interpretation Comments GLYCOSYLATED HEMOGLOBIN (HA1C) 5.1 % A1C 0.0-5.7 N (test code = GLYHGB) ESTIMATED AVERAGE GLUCOSE (test 100 MG/DLest code = EAG) BASIC METABOLIC [id number] 08:56:00 Test Item Value Reference Range Interpretation Comments SODIUM (test code = NA) 140 mmol/L 134-147 N POTASSIUM (test code = 4.3 mmol/L 3.4-5.0 N K) CHLORIDE (test code = 108 mmol/L 100-108 N CL) CARBON DIOXIDE (test 27 mmol/L 21-32 N code = CO2) ANION GAP (test code = 5.0 GAP calc 4.0-15.0 N GAP) GLUCOSE (test code = 77 MG/DL 70-110 N GLU) BLOOD UREA NITROGEN 8 MG/DL 7-18 N (test code = BUN) GLOMERULAR FILTRATION >=60 max estimate >60 RATE (test code = GFR) estGFR CREATININE (test code = 0.6 MG/DL 0.8-1.3 L CREAT) CALCIUM (test code = CA) 10.0 MG/DL 8.5-10.1 N NT PRO-BRAIN NATRIURETIC [id number] 08:56:00 Test Item Value Reference Range Interpretation Comments NT PRO-BRAIN NATRIURETIC PEPTI 445 PG/ML 0-100 H (test code = PROBNP) CBC W/AUTO [id number] 08:37:00 Test Item Value Reference Range Interpretation Comments WHITE BLOOD CELL (test code = 6.0 K/mm3 3.5-11.0 N WBC) RED BLOOD CELL (test code = 3.21 M/mm3 4.70-6.10 L RBC) HEMOGLOBIN (test code = HGB) 9.7 G/DL 12.3-15.9 L HEMATOCRIT (test code = HCT) 32.4 % 35.8-46.7 L MEAN CELL VOLUME (test code = 100.9 Fl 86.3-98.9 H MCV) MEAN CELL HGB (test code = MCH) 30.2 pg 28.9-34.4 N MEAN CELL HGB CONCETRATION 29.9 G/DL 32.1-34.5 L (test code = MCHC) RED CELL DISTRIBUTION WIDTH 16.9 SD 11.5-14.5 H (test code = RDW) PLATELET COUNT (test code = 175 K/mm3 150-450 N PLT) MEAN PLATELET VOLUME (test code 10.00 fL 7.0-9.6 H = MPV) NEUTROPHIL % (test code = NT%) 63.9 % 40-76 N IMMATURE GRANULOCYTE % (test 0.2 % 0.0-5.0 N code = IG%) LYMPHOCYTE % (test code = LY%) 21.5 % 20.5-51.1 N MONOCYTE % (test code = MO%) 8.2 % 1.7-9.3 N EOSINOPHIL % (test code = EO%) 5.7 % 0.0-6.0 N BASOPHIL % (test code = BA%) 0.5 % 0.0-2.0 N NUCLEATED RBC % (test code = 0.0 /100WBC% 0.0-1.0 N NRBC%) NEUTROPHIL # (test code = NT#) 3.8 K/mm3 1.8-7.6 N IMMATURE GRANULOCYTE # (test 0.01 x10 3/uL 0.00-0.03 N code = IG#) LYMPHOCYTE # (test code = LY#) 1.3 K/mm3 0.6-3.0 N MONOCYTE # (test code = MO#) 0.5 K/mm3 0.2-1.5 N EOSINOPHIL # (test code = EO#) 0.3 K/mm3 0.0-0.4 N BASOPHIL # (test code = BA#) 0.0 K/mm3 0.0-0.2 N NUCLEATED RBC # (test code = 0.0 K/mm3 0.00-0.01 N NRBC#) MANUAL DIFF REQUIRED (test code NO DIFF/SCN CRITERIA = MDIFF) GLUCOSE BEDSIDE [id number] 07:49:00 Test Item Value Reference Range Interpretation Comments GLUCOSE BEDSIDE TESTING (test code = 82 mg/dL 70-110 N GLUBED) COVID 19 INHOUSE [id number] 00:15:00 Test Item Value Reference Range Interpretation Comments COVID 19 INHOUSE AG NEGATIVE Negative Per manu facturer, (test code = negative result s should [id number]) be treated aspr esumptive and, if inconsi stent with clinical signs andsymptoms or necessary for patient man agement, should betested with an alternative mol ecular assay. Negative resultsdo not preclude SA RS-CoV-2 infection and s hould not be usedas the s ole basis for patient man agement decisions. Nega tive results should be considered in t he context of apatient's r ecent exposures, hist ory, presence of cli nicalsigns and symptoms co nsistent with COVID-19. COMPREHENSIVE METABOLIC [id number] 23:45:00 Test Item Value Reference Range Interpretation Comments SODIUM (test code = NA) 138 mmol/L 134-147 N POTASSIUM (test code = 4.4 mmol/L 3.4-5.0 N K) CHLORIDE (test code = 105 mmol/L 100-108 N CL) CARBON DIOXIDE (test 30 mmol/L 21-32 N code = CO2) ANION GAP (test code = 3.0 GAP calc 4.0-15.0 L GAP) GLUCOSE (test code = 116 MG/DL 70-110 H GLU) BLOOD UREA NITROGEN 11 MG/DL 7-18 N (test code = BUN) GLOMERULAR FILTRATION >=60 max estimate >60 RATE (test code = GFR) estGFR CREATININE (test code = 0.7 MG/DL 0.8-1.3 L CREAT) TOTAL PROTEIN (test code 7.4 G/DL 6.4-8.2 N = PROT) ALBUMIN (test code = 2.6 G/DL 3.4-5.0 L ALB) GLOBULIN (test code = 4.8 GM/dL GLOB) ALBUMIN/GLOBULIN RATIO 0.5 RATIO 1.2-2.2 L (test code = A/G) CALCIUM (test code = CA) 9.9 MG/DL 8.5-10.1 N BILIRUBIN TOTAL (test 0.20 MG/DL 0.2-1.2 N code = BILT) SGOT/AST (test code = 39 Unit/L 15-37 H AST) SGPT/ALT (test code = 47 Unit/L 12-78 N ALT) ALKALINE PHOSPHATASE 169 Unit/L 50-136 H TOTAL (test code = ALKP) LACTIC [id number] 23:45:00 Test Item Value Reference Range Interpretation Comments LACTIC ACID (test code = LACT) 1.0 mmol/L 0.4-2.0 N CBC W/AUTO [id number] 23:31:00 Test Item Value Reference Range Interpretation Comments WHITE BLOOD CELL (test code = 6.0 K/mm3 3.5-11.0 N WBC) RED BLOOD CELL (test code = 3.10 M/mm3 4.70-6.10 L RBC) HEMOGLOBIN (test code = HGB) 9.4 G/DL 12.3-15.9 L HEMATOCRIT (test code = HCT) 31.3 % 35.8-46.7 L MEAN CELL VOLUME (test code = 101.0 Fl 86.3-98.9 H MCV) MEAN CELL HGB (test code = MCH) 30.3 pg 28.9-34.4 N MEAN CELL HGB CONCETRATION 30.0 G/DL 32.1-34.5 L (test code = MCHC) RED CELL DISTRIBUTION WIDTH 17.0 SD 11.5-14.5 H (test code = RDW) PLATELET COUNT (test code = 200 K/mm3 150-450 N PLT) MEAN PLATELET VOLUME (test code 10.00 fL 7.0-9.6 H = MPV) NEUTROPHIL % (test code = NT%) 65.4 % 40-76 N IMMATURE GRANULOCYTE % (test 0.3 % 0.0-5.0 N code = IG%) LYMPHOCYTE % (test code = LY%) 21.3 % 20.5-51.1 N MONOCYTE % (test code = MO%) 7.2 % 1.7-9.3 N EOSINOPHIL % (test code = EO%) 5.3 % 0.0-6.0 N BASOPHIL % (test code = BA%) 0.5 % 0.0-2.0 N NUCLEATED RBC % (test code = 0.0 /100WBC% 0.0-1.0 N NRBC%) NEUTROPHIL # (test code = NT#) 3.9 K/mm3 1.8-7.6 N IMMATURE GRANULOCYTE # (test 0.02 x10 3/uL 0.00-0.03 N code = IG#) LYMPHOCYTE # (test code = LY#) 1.3 K/mm3 0.6-3.0 N MONOCYTE # (test code = MO#) 0.4 K/mm3 0.2-1.5 N EOSINOPHIL # (test code = EO#) 0.3 K/mm3 0.0-0.4 N BASOPHIL # (test code = BA#) 0.0 K/mm3 0.0-0.2 N NUCLEATED RBC # (test code = 0.0 K/mm3 0.00-0.01 N NRBC#) MANUAL DIFF REQUIRED (test code NO DIFF/SCN CRITERIA = MDIFF) - MRI PELVIS W/O [id number] 13:08:00 [facility] 1955 Sex: M FAX: Christiano Bellamy [phone] Camps: [address]: REG Name: PAIGE,ALONDRA [facility]ly [facility] : 1955 Age/S: 64/M [address] [address] [place] Unit #: [id number] Loc: [place] [address] Phys: Ulices Spencer MD Acct: [id number] Dis Date: Status: REG REF PHONE #: [phone] Exam Date: 09/26/2020 1105 FAX #: Reason: LT BUTTOCK ULCER EXAMS: CPT: [id number] MRI PELVIS W/O CONT [id number] EXAM: - MRI PELVIS W/O CONT HISTORY: LT BUTTOCK ULCER Location code:C3 COMPARISON: None available time of interpretation. TECHNIQUE: Multiplanar and multisequence MR images of the pelvis were performed without intravenous contrast. FINDINGS: Bones: No areas of confluent T1 hypointensity identified. Soft tissues: Ulceration about the left gluteal region is seen with underlying T2 hyperintense fluid collection measuring 11.3 x 2.0 x 9.3 cmin greatest craniocaudal, AP, transverse dimensions respectively with areas of low signal intensity gas within the fluid collection present. Muscles/tendons: Mild increased T2 signal intensity at the hamstring origins is seen. There is increased T2 signal intensity within the left gluteal musculature most pronounced in the gluteus edward muscle. Mild increased T2 signal intensity in the obturator externus muscles is seen bilaterally. IMPRESSION: 1. Ulceration about the left gluteal region extendingto a fluid collection in the subcutaneous fat measuring up to 11.3 cm in size most compatible with abscess with internal gas lying superficial to the left gluteal musculature with associated myositis in the left gluteal musculature. 2. Grade 1 strain of the hamstring origins bilaterally as well as the obturator externus muscles bilaterally. 3. No MR evidence of osteomyelitis. at 1308 Reported and signed by: Robert Claros MD PAGE 1 Signed Report (CONTINUED) FAX: Christiano Bellamy [phone] Camps: PM St: REG--- Name: ALONDRA PAIGE [facility] : 1955 Age/S: 64/M [address] [facility] [place] Unit #: [id number] Loc: [place] [address] Phys: Ulices Spencer MD Acct: [id number] Dis Date: Status: REG REF PHONE #: [phone] Exam Date: 09/26/2020 1102 FAX #: Reason: LT BUTTOCK ULCER EXAMS: CPT: [id number] MRI PELVIS W/O CONT [id number] (Continued) CC: Ulices Duncan MD Technologist: RT Phill(R)(CT); ... Transcribed Date/Time/By: 09/26/2020 (9617) :[email or web address] Orig Print D/T: S: 09/26/2020 (0151) PAGE 2 Signed Report- MRI LOW EXT W/O CONT [id number] 11:19:00 [facility] : 1955 Sex: M FAX: Christiano Bellamy [phone] Camps: PM St: REG Name: ALONDRA PAIGE [facility] : 1955 Age/S: 64/M [address] [address] [place] Unit #: [id number] Loc: [place], [place] [address] Phys: Ulices Spencer MD Acct: [id number] Dis Date: Status: REG REF PHONE #: [phone] Exam Date: 09/26/2020 1025 FAX #: Reason: HEEL ULCER EXAMS: CPT: [id number] MRI LOW EXT W/[place] [address] LOCATION: T18 EXAM: - MRI LOW EXT W/O CONT LT INDICATION: HEEL ULCER, infection COMPARISON: None. TECHNIQUE: Multiplanar, multisequence imaging of the left foot obtained without contrast FINDINGS: Shallow soft tissue ulceration along the posterior heel measuring about 1.7 cm. This only involves the skin surface. No fluid collection to suggest abscess. No marrow edema or T1 marrow signal replacement identified. Marrow signal is normal. There is no evidence for osteomyelitis. Muscles are symmetric in bulk and normal in signal. Flexor and extensor tendons are intact. Neurovascular structures are normal. IMPRESSION: Shallow soft tissue ulceration along the skin surface of the posterior heel. No abscess collection or evidence of osteomyelitis. at 1119 Reported and signed by: Santos Harding M.D. CC: Ulices Duncan MD Technologist: RT Phill(R)(CT); ... Transcribed Date/Time/By: 09/26/2020 (1119) :[email or web address] Orig Print D/T: S: 09/26/2020 (1122) PAGE 1 Signed ReportPOCT GLUCOSE (AUTOMATED)2020-07-22 17:45:18 Test Item Value Reference Range Interpretation Comments POCT GLU (test code = 2074965197) 157 mg/dL 70-110 H Lab Interpretation (test code = Abnormal 57901-2) [facility]ID NOW RAPID TESTING)2020-07-22 14:49:26 Test Item Value Reference Range Interpretation Comments SARS-CoV-2 Rapid ID NOW Not Detected Not Detected (test code = 03434-6) MEG (test code = MEG) ID NOW COVID-19 Assay is an isothermal nucleic acid amplification test intended for the qualitative detection of nucleic acid from SARS-CoV-2 viral RNA in nasopharyngeal (DOCTORATE OF CHIROPRACTIC) specimens. It is used under Emergency Use Authorization (EUA) by FDA. The limit of detection (LOD) of the assay is 125 Genome Equivalents/mL. A positive result is indicative of the presence of SARS-CoV-2 RNA. ?Clinical correlation with patient history and other diagnostic information is necessary to determine patient infection status. A negative (Not Detected) result does not preclude SARS-CoV-2 infection. In patients with clinical symptoms and other tests that are consistent with SARS-CoV-2 infection, negative results should be treated as presumptive negative and a new specimen should be tested with alternative PCR molecular test. Invalid: Please collect a new specimen for repeat patient testing if clinically indicated. Lab Interpretation Normal (test code = 45086-5) [facility]ATED)2020-07-22 14:38:49 Test Item Value Reference Range Interpretation Comments POCT GLU (test code = 7199031984) 135 mg/dL 70-110 H Lab Interpretation (test code = Abnormal 38316-4) [facility] METABOLIC PANEL (NA, K, CL, CO2, GLUCOSE, BUN, CREATININE, CA)2020-07-22 10:37:16 Test Item Value Reference Range Interpretation Comments NA (test code = 142 mmol/L 135-145 1622067214) K (test code = 4.3 mmol/L 3.5-5.0 7011605446) CL (test code = 100 mmol/L 98-108 0231518763) CO2 TOTAL (test code = 39 mmol/L 23-31 H 5680696642) AGAP (test code = 2-16 8084941580) BUN (test code = 36 mg/dL 7-23 H 6438924010) GLUCOSE (test code = 141 mg/dL 70-110 H 2953590896) CREATININE (test code = 0.87 mg/dL 0.60-1.25 3334344347) CALCIUM (test code = 10.0 mg/dL 8.6-10.6 6886445427) eGFR (test code = mL/min/1.73m2 8986276736) MEG (test code = MEG) Association of Glomerular Filtration Rate (GFR) and Staging of Kidney Disease* + --+ --+ ------+| GFR (mL/min/1.73 m2) ?| With Kidney Damage ?| ?Without Kidney Damage+ --------+ --------+ +| ?>90 ?| ?Stage one ?| ? Normal ?+ ---+ ---+ -------+| ?60-89 ?| ?Stage two ?| ? Decreased GFR ? + --+ --+ ------+| ?30-59 ?| ?Stage three ?| ? Stage three ? + --+ --+ ------+| ?15-29 ?| ?Stage four ? | ? Stage four ?+ ---+ ---+ -------+| ?<15 (or dialysis) ? ?| ?Stage five ? | ? Stage five ?+ ---+ ---+ -------+ *Each stage assumes the associated GFR level has been in effect for at least three months. ?Stages 1 to 5, with or without kidney disease, indicate chronic kidney disease. Notes: Determination of stages one and two (with eGFR >59mL/min/1.73 m2) requires estimation of kidney damage for at least three months as defined by structural or functional abnormalities of the kidney, manifested by either:Pathological abnormalities or Markers of kidney damage (including abnormalities in the composition of the blood or urine or abnormalities in imaging tests). Lab Interpretation Abnormal (test code = 39029-6) [facility]2021-[facility]-19 10:30:35 Test Item Value Reference Range Interpretation Comments MAGNESIUM (test code = 1223414672) 2.0 mg/dL 1.7-2.4 Lab Interpretation (test code = Normal 11189-2) [facility] WITH [id number] 10:09:51 Test Item Value Reference Range Interpretation Comments WBC (test code = See_Comment [Automated 2990-2) message] The sy stem which generated this result transmitted reference range : 4.20 - 10.70 10*3/?L. The reference range was not used to interpret this result as normal/abnormal . RBC (test code = See_Comment L [Automated 839-8) message] The sy stem which generated this result transmitted reference range : 4.26 - 5.52 10*6/?L. The reference range was not used to interpret this result as normal/abnormal . HGB (test code = 8.9 g/dL 12.2-16.4 L 718-7) HCT (test code = 29.6 % 38.4-49.3 L 4544-3) MCV (test code = 94.6 fL 81.7-95.6 787-2) MCH (test code = 28.4 pg 26.1-32.7 785-6) MCHC (test code = 30.1 g/dL 31.2-35.0 L 786-4) RDW-SD (test code = 74.1 fL 38.5-51.6 H 13773-8) RDW-CV (test code = 21.5 % 12.1-15.4 H 788-0) PLT (test code = See_Comment L [Automated 777-3) message] The sy stem which generated this result transmitted reference range : 150 - 328 10*3/ ?L. The reference r delano was not used to interpret this result as normal/abnormal . MPV (test code = 11.6 fL 9.8-13.0 72595-8) NRBC/100 WBC (test See_Comment [Automat ed code = 3114715802) message] The system which generated this result transmitted reference range : 0.0 - 10.0 /100 WBCs. The refer ence range was not u sed to interpret th is result as normal/abnormal . NRBC x10^3 (test code <0.01 See_Comment [Auto mated = 8383043302) message] The s ystem which generated this result transmitted reference range : 10*3/?L. The reference range was not used to interpret this result as normal/abnormal . GRAN MAT (NEUT) % 66.5 % (test code = 770-8) IMM GRAN % (test code 0.40 % = 9032008909) LYMPH % (test code = 22.5 % 736-9) MONO % (test code = 7.2 % 5905-5) EOS % (test code = 2.8 % 713-8) BASO % (test code = 0.6 % 706-2) GRAN MAT x10^3(ANC) 3.51 10*3/uL 1.99-6.95 (test code = 3249277040) IMM GRAN x10^3 (test <0.03 0.00-0.06 code = 1500692409) LYMPH x10^3 (test code 1.19 10*3/uL 1.09-3.23 = 731-0) MONO x10^3 (test code 0.38 10*3/uL 0.36-1.02 = 742-7) EOS x10^3 (test code = 0.15 10*3/uL 0.06-0.53 711-2) BASO x10^3 (test code 0.03 10*3/uL 0.01-0.09 = 704-7) Lab Interpretation Abnormal (test code = 98328-6) [facility]2020-07-22 01:36:57 Test Item Value Reference Range Interpretation Comments POCT GLU (test code = 9856834094) 150 mg/dL 70-110 H Lab Interpretation (test code = Abnormal 67037-5) [facility] CenterXR SHOULDER <2 VW [id number] 23:56:12 Suboptimal evaluation due to patient body habitus. No glenohumeral or AC joint dislocation. Subtle lucencies project over the distal clavicle and coracoid process,possibly superimposition of bony contours. However nondisplaced fracturesnot excluded.XR SHOULDER <2 VW LEFT INDICATION: PT concerns, stan ulder sublaxation, weakness of L side, MRIpending COMPARISON: 07/05/2020 FINDINGS: Glenohumeral and ACjoints are intact with mild degenerative changes. Nodisplaced fracture or dislocation. However thereare subtle lucenciesprojecting over the distal clavicle and coracoid process. [facility], Radiant Results Inft User - 07/21/2020 6:57 PM CDTXR SHOULDER <2 VW LEFTINDICATION: PT concerns, shoulder sublaxation, weakness of L side, MRIpending COMPARISON: 07/05/2020FINDINGS:Glenohumeral and AC joints are intact with mild degenerative changes. Nodisplaced fracture or dislocation. However there are subtle lucenc iesprojecting over the distal clavicle and coracoid process.IMPRESSIONSuboptimal evaluation due to patient body habitus.No glenohumeral or AC joint dislocation.Subtle lucencies project over the distal clavicle and coracoid process,possibly superimposition of bony contours. However nondisplaced fracture snot excluded.[facility] GLUCOSE (AUTOMATED) 2020-07-21 22:47:14 Test Item Value Reference Range Interpretation Comments POCT GLU (test code = 127 mg/dL 70-110 H Notifi ed Provider [id number]) Lab Interpretation (test Abnormal code = 86354-0) [facility] GLUCOSE (AUTOMATED)2020-07-21 17:38:25 Test Item Value Reference Range Interpretation Comments POCT GLU (test code = 151 mg/dL 70-110 H Notifi ed Provider [id number]) Lab Interpretation (test Abnormal code = 66864-6) [facility] GLUCOSE (AUTOMATED)2020-07-21 14:21:28 Test Item Value Reference Range Interpretation Comments POCT GLU (test code = 122 mg/dL 70-110 H Notifi ed Provider [id number]) Lab Interpretation (test Abnormal code = 87116-4) [facility]2021-[facility]-18 10:56:35 Test Item Value Reference Range Interpretation Comments MAGNESIUM (test code = 8647274206) 2.0 mg/dL 1.7-2.4 Lab Interpretation (test code = Normal 14375-0) [facility] METABOLIC PANEL (NA, K, CL, CO2, GLUCOSE, BUN, CREATININE, CA)2020-07-21 10:56:35 Test Item Value Reference Range Interpretation Comments NA (test code = 141 mmol/L 135-145 9261318522) K (test code = 4.0 mmol/L 3.5-5.0 9183449333) CL (test code = 99 mmol/L 98-108 0477639044) CO2 TOTAL (test code = 35 mmol/L 23-31 H 5055457317) AGAP (test code = 2-16 7061568357) BUN (test code = 36 mg/dL 7-23 H 1299220520) GLUCOSE (test code = 128 mg/dL 70-110 H 5198069999) CREATININE (test code = 0.74 mg/dL 0.60-1.25 1296793729) CALCIUM (test code = 9.5 mg/dL 8.6-10.6 7745962179) eGFR (test code = mL/min/1.73m2 0937996365) MEG (test code = MEG) Association of Glomerular Filtration Rate (GFR) and Staging of Kidney Disease* + --+ --+ ------+| GFR (mL/min/1.73 m2) ?| With Kidney Damage ?| ?Without Kidney Damage+ --------+ --------+ +| ?>90 ?| ?Stage one ?| ? Normal ?+ ---+ ---+ -------+| ?60-89 ?| ?Stage two ?| ? Decreased GFR ? + --+ --+ ------+| ?30-59 ?| ?Stage three ?| ? Stage three ? + --+ --+ ------+| ?15-29 ?| ?Stage four ? | ? Stage four ?+ ---+ ---+ -------+| ?<15 (or dialysis) ? ?| ?Stage five ? | ? Stage five ?+ ---+ ---+ -------+ *Each stage assumes the associated GFR level has been in effect for at least three months. ?Stages 1 to 5, with or without kidney disease, indicate chronic kidney disease. Notes: Determination of stages one and two (with eGFR >59mL/min/1.73 m2) requires estimation of kidney damage for at least three months as defined by structural or functional abnormalities of the kidney, manifested by either:Pathological abnormalities or Markers of kidney damage (including abnormalities in the composition of the blood or urine or abnormalities in imaging tests). Lab Interpretation Abnormal (test code = 47000-8) [facility] WITH [id number] 09:50:05 Test Item Value Reference Range Interpretation Comments WBC (test code = See_Comment [Automated 9123-2) message] The sy stem which generated this result transmitted reference range : 4.20 - 10.70 10*3/?L. The reference range was not used to interpret this result as normal/abnormal . RBC (test code = See_Comment L [Automated 835-4) message] The sy stem which generated this result transmitted reference range : 4.26 - 5.52 10*6/?L. The reference range was not used to interpret this result as normal/abnormal . HGB (test code = 8.4 g/dL 12.2-16.4 L 718-7) HCT (test code = 28.9 % 38.4-49.3 L 4544-3) MCV (test code = 95.1 fL 81.7-95.6 787-2) MCH (test code = 27.6 pg 26.1-32.7 785-6) MCHC (test code = 29.1 g/dL 31.2-35.0 L 786-4) RDW-SD (test code = 73.8 fL 38.5-51.6 H 88236-5) RDW-CV (test code = 21.3 % 12.1-15.4 H 788-0) PLT (test code = See_Comment L [Automated 777-3) message] The sy stem which generated this result transmitted reference range : 150 - 328 10*3/ ?L. The reference r delano was not used to interpret this result as normal/abnormal . MPV (test code = 10.1 fL 9.8-13.0 34260-1) NRBC/100 WBC (test See_Comment [Automat ed code = 0103760132) message] The system which generated this result transmitted reference range : 0.0 - 10.0 /100 WBCs. The refer ence range was not u sed to interpret th is result as normal/abnormal . NRBC x10^3 (test code <0.01 See_Comment [Auto mated = 4606980720) message] The s ystem which generated this result transmitted reference range : 10*3/?L. The reference range was not used to interpret this result as normal/abnormal . GRAN MAT (NEUT) % 66.0 % (test code = 770-8) IMM GRAN % (test code 0.20 % = 5923466208) LYMPH % (test code = 22.6 % 736-9) MONO % (test code = 6.9 % 5905-5) EOS % (test code = 3.6 % 713-8) BASO % (test code = 0.7 % 706-2) GRAN MAT x10^3(ANC) 3.61 10*3/uL 1.99-6.95 (test code = 3277335307) IMM GRAN x10^3 (test <0.03 0.00-0.06 code = 2169383523) LYMPH x10^3 (test code 1.24 10*3/uL 1.09-3.23 = 731-0) MONO x10^3 (test code 0.38 10*3/uL 0.36-1.02 = 742-7) EOS x10^3 (test code = 0.20 10*3/uL 0.06-0.53 711-2) BASO x10^3 (test code 0.04 10*3/uL 0.01-0.09 = 704-7) Lab Interpretation Abnormal (test code = 66284-7) [facility] GLUCOSE (AUTOMATED)2020-07-21 02:15:13 Test Item Value Reference Range Interpretation Comments POCT GLU (test code = 6025135171) 144 mg/dL 70-110 H Lab Interpretation (test code = Abnormal 15496-0) [facility] GLUCOSE (AUTOMATED)2020-07-20 23:03:26 Test Item Value Reference Range Interpretation Comments POCT GLU (test code = 140 mg/dL 70-110 H Notifi ed Provider [id number]) Lab Interpretation (test Abnormal code = 33120-6) [facility] GLUCOSE (AUTOMATED)2020-07-20 18:23:54 Test Item Value Reference Range Interpretation Comments POCT GLU (test code = 151 mg/dL 70-110 H Notifi ed Provider [id number]) Lab Interpretation (test Abnormal code = 37769-3) [facility] GLUCOSE (AUTOMATED)2020-07-20 15:05:31 Test Item Value Reference Range Interpretation Comments POCT GLU (test code = 4726007235) 167 mg/dL 70-110 H Lab Interpretation (test code = Abnormal 34664-8) [facility] 11:09:59 Test Item Value Reference Range Interpretation Comments MAGNESIUM (test code = 2838279988) 1.8 mg/dL 1.7-2.4 Lab Interpretation (test code = Normal 63108-6) [facility] METABOLIC PANEL (NA, K, CL, CO2, GLUCOSE, BUN, CREATININE, CA)2020-07-20 11:09:59 Test Item Value Reference Range Interpretation Comments NA (test code = 142 mmol/L 135-145 6149804224) K (test code = 4.1 mmol/L 3.5-5.0 0813315426) CL (test code = 102 mmol/L 98-108 7256715190) CO2 TOTAL (test code = 33 mmol/L 23-31 H 5068898725) AGAP (test code = 2-16 0623609699) BUN (test code = 47 mg/dL 7-23 H 6740831273) GLUCOSE (test code = 127 mg/dL 70-110 H 2242697373) CREATININE (test code = 0.75 mg/dL 0.60-1.25 6648471557) CALCIUM (test code = 9.6 mg/dL 8.6-10.6 5324818800) eGFR (test code = mL/min/1.73m2 5766798216) MEG (test code = MEG) Association of Glomerular Filtration Rate (GFR) and Staging of Kidney Disease* + --+ --+ ------+| GFR (mL/min/1.73 m2) ?| With Kidney Damage ?| ?Without Kidney Damage+ --------+ --------+ +| ?>90 ?| ?Stage one ?| ? Normal ?+ ---+ ---+ -------+| ?60-89 ?| ?Stage two ?| ? Decreased GFR ? + --+ --+ ------+| ?30-59 ?| ?Stage three ?| ? Stage three ? + --+ --+ ------+| ?15-29 ?| ?Stage four ? | ? Stage four ?+ ---+ ---+ -------+| ?<15 (or dialysis) ? ?| ?Stage five ? | ? Stage five ?+ ---+ ---+ -------+ *Each stage assumes the associated GFR level has been in effect for at least three months. ?Stages 1 to 5, with or without kidney disease, indicate chronic kidney disease. Notes: Determination of stages one and two (with eGFR >59mL/min/1.73 m2) requires estimation of kidney damage for at least three months as defined by structural or functional abnormalities of the kidney, manifested by either:Pathological abnormalities or Markers of kidney damage (including abnormalities in the composition of the blood or urine or abnormalities in imaging tests). Lab Interpretation Abnormal (test code = 69988-6) [facility] WITH [id number] 10:31:33 Test Item Value Reference Range Interpretation Comments WBC (test code = See_Comment [Automated 6690-2) message] The sy stem which generated this result transmitted reference range : 4.20 - 10.70 10*3/?L. The reference range was not used to interpret this result as normal/abnormal . RBC (test code = See_Comment L [Automated 789-8) message] The sy stem which generated this result transmitted reference range : 4.26 - 5.52 10*6/?L. The reference range was not used to interpret this result as normal/abnormal . HGB (test code = 8.3 g/dL 12.2-16.4 L 718-7) HCT (test code = 28.8 % 38.4-49.3 L 4544-3) MCV (test code = 94.4 fL 81.7-95.6 787-2) MCH (test code = 27.2 pg 26.1-32.7 785-6) MCHC (test code = 28.8 g/dL 31.2-35.0 L 786-4) RDW-SD (test code = 74.0 fL 38.5-51.6 H 58715-4) RDW-CV (test code = 21.5 % 12.1-15.4 H 788-0) PLT (test code = See_Comment [Automated 777-3) message] The sy stem which generated this result transmitted reference range : 150 - 328 10*3/ ?L. The reference r delano was not used to interpret this result as normal/abnormal . MPV (test code = 10.1 fL 9.8-13.0 95959-3) NRBC/100 WBC (test See_Comment [Automat ed code = 8961234451) message] The system which generated this result transmitted reference range : 0.0 - 10.0 /100 WBCs. The refer ence range was not u sed to interpret th is result as normal/abnormal . NRBC x10^3 (test code <0.01 See_Comment [Auto mated = 5162608067) message] The s ystem which generated this result transmitted reference range : 10*3/?L. The reference range was not used to interpret this result as normal/abnormal . GRAN MAT (NEUT) % 66.8 % (test code = 770-8) IMM GRAN % (test code 0.30 % = 5444325414) LYMPH % (test code = 20.6 % 736-9) MONO % (test code = 7.9 % 5905-5) EOS % (test code = 3.7 % 713-8) BASO % (test code = 0.7 % 706-2) GRAN MAT x10^3(ANC) 3.82 10*3/uL 1.99-6.95 (test code = 2178098070) IMM GRAN x10^3 (test <0.03 0.00-0.06 code = 1095599368) LYMPH x10^3 (test code 1.18 10*3/uL 1.09-3.23 = 731-0) MONO x10^3 (test code 0.45 10*3/uL 0.36-1.02 = 742-7) EOS x10^3 (test code = 0.21 10*3/uL 0.06-0.53 711-2) BASO x10^3 (test code 0.04 10*3/uL 0.01-0.09 = 704-7) Lab Interpretation Abnormal (test code = 79486-9) [facility] GLUCOSE (AUTOMATED)2020-07-20 02:16:51 Test Item Value Reference Range Interpretation Comments POCT GLU (test code = 7793519702) 226 mg/dL 70-110 H Lab Interpretation (test code = Abnormal 07631-1) [facility] GLUCOSE (AUTOMATED)2020-07-20 00:05:27 Test Item Value Reference Range Interpretation Comments POCT GLU (test code = 118 mg/dL 70-110 H Notifi ed Provider [id number]) Lab Interpretation (test Abnormal code = 77597-8) [facility] GLUCOSE (AUTOMATED)2020-07-19 17:34:04 Test Item Value Reference Range Interpretation Comments POCT GLU (test code = 5367671554) 168 mg/dL 70-110 H Lab Interpretation (test code = Abnormal 56477-9) [facility] GLUCOSE (AUTOMATED)2020-07-19 13:18:55 Test Item Value Reference Range Interpretation Comments POCT GLU (test code = 159 mg/dL 70-110 H Notifi ed Provider [id number]) Lab Interpretation (test Abnormal code = 36316-5) [facility] 10:59:54 Test Item Value Reference Range Interpretation Comments MAGNESIUM (test code = 4376071854) 2.1 mg/dL 1.7-2.4 Lab Interpretation (test code = Normal 27962-8) [facility] METABOLIC PANEL (NA, K, CL, CO2, GLUCOSE, BUN, CREATININE, CA)2020-07-19 10:59:54 Test Item Value Reference Range Interpretation Comments NA (test code = 142 mmol/L 135-145 2819238362) K (test code = 3.9 mmol/L 3.5-5.0 4116160502) CL (test code = 101 mmol/L 98-108 0547899234) CO2 TOTAL (test code = 35 mmol/L 23-31 H 9925818180) AGAP (test code = 2-16 8441844784) BUN (test code = 64 mg/dL 7-23 H 7453879382) GLUCOSE (test code = 138 mg/dL 70-110 H 6617045772) CREATININE (test code = 1.23 mg/dL 0.60-1.25 8046142773) CALCIUM (test code = 9.6 mg/dL 8.6-10.6 3840321971) eGFR (test code = mL/min/1.73m2 7211340773) MEG (test code = MEG) Association of Glomerular Filtration Rate (GFR) and Staging of Kidney Disease* + --+ --+ ------+| GFR (mL/min/1.73 m2) ?| With Kidney Damage ?| ?Without Kidney Damage+ --------+ --------+ +| ?>90 ?| ?Stage one ?| ? Normal ?+ ---+ ---+ -------+| ?60-89 ?| ?Stage two ?| ? Decreased GFR ? + --+ --+ ------+| ?30-59 ?| ?Stage three ?| ? Stage three ? + --+ --+ ------+| ?15-29 ?| ?Stage four ? | ? Stage four ?+ ---+ ---+ -------+| ?<15 (or dialysis) ? ?| ?Stage five ? | ? Stage five ?+ ---+ ---+ -------+ *Each stage assumes the associated GFR level has been in effect for at least three months. ?Stages 1 to 5, with or without kidney disease, indicate chronic kidney disease. Notes: Determination of stages one and two (with eGFR >59mL/min/1.73 m2) requires estimation of kidney damage for at least three months as defined by structural or functional abnormalities of the kidney, manifested by either:Pathological abnormalities or Markers of kidney damage (including abnormalities in the composition of the blood or urine or abnormalities in imaging tests). Lab Interpretation Abnormal (test code = 24712-9) [facility] WITH [id number] 10:25:07 Test Item Value Reference Range Interpretation Comments WBC (test code = See_Comment [Automated 6690-2) message] The sy stem which generated this result transmitted reference range : 4.20 - 10.70 10*3/?L. The reference range was not used to interpret this result as normal/abnormal . RBC (test code = See_Comment L [Automated 789-8) message] The sy stem which generated this result transmitted reference range : 4.26 - 5.52 10*6/?L. The reference range was not used to interpret this result as normal/abnormal . HGB (test code = 8.1 g/dL 12.2-16.4 L 718-7) HCT (test code = 28.1 % 38.4-49.3 L 4544-3) MCV (test code = 94.6 fL 81.7-95.6 787-2) MCH (test code = 27.3 pg 26.1-32.7 785-6) MCHC (test code = 28.8 g/dL 31.2-35.0 L 786-4) RDW-SD (test code = 74.4 fL 38.5-51.6 H 78894-8) RDW-CV (test code = 21.6 % 12.1-15.4 H 788-0) PLT (test code = See_Comment [Automated 777-3) message] The sy stem which generated this result transmitted reference range : 150 - 328 10*3/ ?L. The reference r delano was not used to interpret this result as normal/abnormal . MPV (test code = 10.0 fL 9.8-13.0 11640-9) NRBC/100 WBC (test See_Comment [Automat ed code = 6079340528) message] The system which generated this result transmitted reference range : 0.0 - 10.0 /100 WBCs. The refer ence range was not u sed to interpret th is result as normal/abnormal . NRBC x10^3 (test code <0.01 See_Comment [Auto mated = 3426776883) message] The s ystem which generated this result transmitted reference range : 10*3/?L. The reference range was not used to interpret this result as normal/abnormal . GRAN MAT (NEUT) % 68.8 % (test code = 770-8) IMM GRAN % (test code 0.00 % = 6274555102) LYMPH % (test code = 19.9 % 736-9) MONO % (test code = 6.3 % 5905-5) EOS % (test code = 4.5 % 713-8) BASO % (test code = 0.5 % 706-2) GRAN MAT x10^3(ANC) 3.79 10*3/uL 1.99-6.95 (test code = 8476904782) IMM GRAN x10^3 (test <0.03 0.00-0.06 code = 3688168024) LYMPH x10^3 (test code 1.10 10*3/uL 1.09-3.23 = 731-0) MONO x10^3 (test code 0.35 10*3/uL 0.36-1.02 L = 742-7) EOS x10^3 (test code = 0.25 10*3/uL 0.06-0.53 711-2) BASO x10^3 (test code 0.03 10*3/uL 0.01-0.09 = 704-7) Lab Interpretation Abnormal (test code = 64634-7) [facility] GLUCOSE (AUTOMATED)2020-07-19 02:29:22 Test Item Value Reference Range Interpretation Comments POCT GLU (test code = 6837367722) 175 mg/dL 70-110 H Lab Interpretation (test code = Abnormal 64598-1) [facility] GLUCOSE (AUTOMATED)2020-07-18 23:44:29 Test Item Value Reference Range Interpretation Comments POCT GLU (test code = 132 mg/dL 70-110 H Notifi ed Provider [id number]) Lab Interpretation (test Abnormal code = 07253-6) [facility] [id number] 22:57:27 No acute intracranial abnormality.EXAM: CT HEAD WO CONTRAST HISTORY: rule out stroke TECHNIQUE: CT of the head was performed without intravenous contrast.Sagittal and coronal reformats were generated.COMPARISON: None. FINDINGS: The ventricles and sulci are normal in caliber and configuration. Nohydrocephalus, midline shift or pathological extra-axial fluid collectionis present. The basal cisterns are unremarkable. There is no acute intracranial hemorrhage or significant mass effect. Noparenchymal attenuation abnormality. The negro-white matter differentiationis preserved. The mastoid air cells and paranasal air sinuses are clear. The calvariumand central skull base are unremarkable. Lamb, [employer]iant[employer] Inft - 07/18/2020 5:58 PM CDTEXAM: CT HEAD WO CONTRASTHISTORY: rule out stroke TECHNIQUE: CT of the head was performed without intravenous contrast.Sagittal and coronal reformats were gener ated.COMPARISON: None.FINDINGS: The ventricles and sulci are normal in caliber and configuration. Nohydrocephalus, midline shift or pathological extra-axial fluid collectionis present. The basal cisterns are unremarkable.There is no acute intracranial hemorrhage or significant mass effect. Noparenchymal attenuation abnormality. The negro-white matter differentiationis preserved.The mastoid air cells and paranasal air sinuses are clear. The calvariumand central skull base are unremarkable.IMPRESSIONNoacute intracranial abnormality. [facility] 13:05:16 Test Item Value Reference Range Interpretation Comments APPEARANCE (test code = Cloudy Clear A 1090523191) COLOR (test code = Yellow Yellow 9701308850) PH (test code = 4.8-8.0 6951376598) SP GRAVITY (test code = 1.003-1.030 3612565497) GLU U QUAL (test code = Normal Normal 1364243869) BLOOD (test code = 1+ Negative A 8587750874) KETONES (test code = Negative Negative 4378107797) PROTEIN (test code = Negative Negative 2887-8) UROBILIN (test code = Normal Normal 3286800230) BILIRUBIN (test code = Negative Negative 0647708491) NITRITE (test code = Negative Negative 2637936205) LEUK BARTOLO (test code = Negative Negative 4072216070) RBC/HPF (test code = See_Comment H [Autom ated message] 8516864147) The system [employer] generated this result transmitted ref erence range: 0 - 3 HP F. The reference range was not used to int erpret this result as normal/abnormal . WBC/HPF (test code = See_Comment [Autom ated message] 7732087143) The system [employer] generated this result transmitted ref erence range: 0 - 5 HP F. The reference range was not used to int erpret this result as normal/abnormal . BACTERIA (test code = Negative Negative 9217675440) AMORPHOUS (test code = Rare Rare HPF 8795071722) SQ EPITH (test code = See_Comment [Auto mated message] 9746640875) The system [employer] generated this result transmitted ref erence range: <=2 HPF. The reference range was not used to int erpret this result as normal/abnormal . HYAL CAST (test code = See_Comment H [Aut omated message] 1864171424) The system [employer] generated this result transmitted ref erence range: <=2 LPF. The reference range was not used to int erpret this result as normal/abnormal . ASCORBIC ACID (test code Negative = 8091510666) Lab Interpretation (test Abnormal code = 27032-4) [facility] 10:50:22 Test Item Value Reference Range Interpretation Comments MAGNESIUM (test code = 2793568468) 2.1 mg/dL 1.7-2.4 Lab Interpretation (test code = Normal 91316-2) [facility] (NA, K, CL, CO2, GLUCOSE, BUN, CREATININE, CA)2020-07-18 10:50:22 Test Item Value Reference Range Interpretation Comments NA (test code = 141 mmol/L 135-145 1603864410) K (test code = 4.3 mmol/L 3.5-5.0 0447461298) CL (test code = 100 mmol/L 98-108 8840922977) CO2 TOTAL (test code = 35 mmol/L 23-31 H 7755365070) AGAP (test code = 2-16 7365414631) BUN (test code = 64 mg/dL 7-23 H 5025372859) GLUCOSE (test code = 135 mg/dL 70-110 H 5432142697) CREATININE (test code = 1.06 mg/dL 0.60-1.25 5920854255) CALCIUM (test code = 9.2 mg/dL 8.6-10.6 1484121229) eGFR (test code = mL/min/1.73m2 4050534576) MEG (test code = MEG) Association of Glomerular Filtration Rate (GFR) and Staging of Kidney Disease* + --+ --+ ------+| GFR (mL/min/1.73 m2) ?| With Kidney Damage ?| ?Without Kidney Damage+ --------+ --------+ +| ?>90 ?| ?Stage one ?| ? Normal ?+ ---+ ---+ -------+| ?60-89 ?| ?Stage two ?| ? Decreased GFR ? + --+ --+ ------+| ?30-59 ?| ?Stage three ?| ? Stage three ? + --+ --+ ------+| ?15-29 ?| ?Stage four ? | ? Stage four ?+ ---+ ---+ -------+| ?<15 (or dialysis) ? ?| ?Stage five ? | ? Stage five ?+ ---+ ---+ -------+ *Each stage assumes the associated GFR level has been in effect for at least three months. ?Stages 1 to 5, with or without kidney disease, indicate chronic kidney disease. Notes: Determination of stages one and two (with eGFR >59mL/min/1.73 m2) requires estimation of kidney damage for at least three months as defined by structural or functional abnormalities of the kidney, manifested by either:Pathological abnormalities or Markers of kidney damage (including abnormalities in the composition of the blood or urine or abnormalities in imaging tests). Lab Interpretation Abnormal (test code = 15063-7) [facility], [id number] 10:38:18 Test Item Value Reference Range Interpretation Comments AMMONIA (test code = 8822449268) <9 9-33 L Lab Interpretation (test code = Abnormal 26663-1) [facility] WITH [id number] 10:15:38 Test Item Value Reference Range Interpretation Comments WBC (test code = See_Comment [Automated 6690-2) message] The sy stem which generated this result transmitted reference range : 4.20 - 10.70 10*3/?L. The reference range was not used to interpret this result as normal/abnormal . RBC (test code = See_Comment L [Automated 789-8) message] The sy stem which generated this result transmitted reference range : 4.26 - 5.52 10*6/?L. The reference range was not used to interpret this result as normal/abnormal . HGB (test code = 9.2 g/dL 12.2-16.4 L 718-7) HCT (test code = 31.8 % 38.4-49.3 L 4544-3) MCV (test code = 95.8 fL 81.7-95.6 H 787-2) MCH (test code = 27.7 pg 26.1-32.7 785-6) MCHC (test code = 28.9 g/dL 31.2-35.0 L 786-4) RDW-SD (test code = 75.8 fL 38.5-51.6 H 91460-5) RDW-CV (test code = 21.9 % 12.1-15.4 H 788-0) PLT (test code = See_Comment [Automated 777-3) message] The sy stem which generated this result transmitted reference range : 150 - 328 10*3/ ?L. The reference r delano was not used to interpret this result as normal/abnormal . MPV (test code = 10.1 fL 9.8-13.0 36749-6) NRBC/100 WBC (test See_Comment [Automat ed code = 7711306520) message] The system which generated this result transmitted reference range : 0.0 - 10.0 /100 WBCs. The refer ence range was not u sed to interpret th is result as normal/abnormal . NRBC x10^3 (test code <0.01 See_Comment [Auto mated = 2221243112) message] The s ystem which generated this result transmitted reference range : 10*3/?L. The reference range was not used to interpret this result as normal/abnormal . GRAN MAT (NEUT) % 69.8 % (test code = 770-8) IMM GRAN % (test code 0.20 % = 9627268701) LYMPH % (test code = 18.6 % 736-9) MONO % (test code = 6.8 % 5905-5) EOS % (test code = 4.1 % 713-8) BASO % (test code = 0.5 % 706-2) GRAN MAT x10^3(ANC) 4.24 10*3/uL 1.99-6.95 (test code = 1912850840) IMM GRAN x10^3 (test <0.03 0.00-0.06 code = 8529435026) LYMPH x10^3 (test code 1.13 10*3/uL 1.09-3.23 = 731-0) MONO x10^3 (test code 0.41 10*3/uL 0.36-1.02 = 742-7) EOS x10^3 (test code = 0.25 10*3/uL 0.06-0.53 711-2) BASO x10^3 (test code 0.03 10*3/uL 0.01-0.09 = 704-7) Lab Interpretation Abnormal (test code = 37639-2) [facility], [id number] 06:42:52 Test Item Value Reference Range Interpretation Comments VIT B12 (test code = 712 pg/mL 240-930 7306326576) MEG (test code = MEG) Biotin has been reported to cause a positive bias, interpret results relative to patient's use of biotin. Lab Interpretation (test Normal code = 75481-5) [facility]21-[facility] 05:57:04 Test Item Value Reference Range Interpretation Comments MAGNESIUM (test code = 6813056177) 2.5 mg/dL 1.7-2.4 H Lab Interpretation (test code = Abnormal 98273-9) [facility]2020-07-18 02:29:50 Test Item Value Reference Range Interpretation Comments POCT GLU (test code = 4792991073) 181 mg/dL 70-110 H Lab Interpretation (test code = Abnormal 75379-7) [facility]2020-07-17 22:25:59 Test Item Value Reference Range Interpretation Comments POCT GLU (test code = 146 mg/dL 70-110 H Notifi ed Provider [id number]) Lab Interpretation (test Abnormal code = 13440-3) [facility] METABOLIC PANEL (NA, K, CL, CO2, GLUCOSE, BUN, CREATININE, CA)2020-07-17 21:02:35 Test Item Value Reference Range Interpretation Comments NA (test code = 142 mmol/L 135-145 8631526450) K (test code = 4.2 mmol/L 3.5-5.0 9564245804) CL (test code = 100 mmol/L 98-108 4900752083) CO2 TOTAL (test code = 38 mmol/L 23-31 H 0593428084) AGAP (test code = 2-16 7111270462) BUN (test code = 59 mg/dL 7-23 H 7092143860) GLUCOSE (test code = 206 mg/dL 70-110 H 3991917789) CREATININE (test code = 1.27 mg/dL 0.60-1.25 H 8480471066) CALCIUM (test code = 9.6 mg/dL 8.6-10.6 8906989584) eGFR (test code = mL/min/1.73m2 8761331029) MEG (test code = MEG) Association of Glomerular Filtration Rate (GFR) and Staging of Kidney Disease* + --+ --+ ------+| GFR (mL/min/1.73 m2) ?| With Kidney Damage ?| ?Without Kidney Damage+ --------+ --------+ +| ?>90 ?| ?Stage one ?| ? Normal ?+ ---+ ---+ -------+| ?60-89 ?| ?Stage two ?| ? Decreased GFR ? + --+ --+ ------+| ?30-59 ?| ?Stage three ?| ? Stage three ? + --+ --+ ------+| ?15-29 ?| ?Stage four ? | ? Stage four ?+ ---+ ---+ -------+| ?<15 (or dialysis) ? ?| ?Stage five ? | ? Stage five ?+ ---+ ---+ -------+ *Each stage assumes the associated GFR level has been in effect for at least three months. ?Stages 1 to 5, with or without kidney disease, indicate chronic kidney disease. Notes: Determination of stages one and two (with eGFR >59mL/min/1.73 m2) requires estimation of kidney damage for at least three months as defined by structural or functional abnormalities of the kidney, manifested by either:Pathological abnormalities or Markers of kidney damage (including abnormalities in the composition of the blood or urine or abnormalities in imaging tests). Lab Interpretation Abnormal (test code = 87894-0) [facility] 21:02:35 Test Item Value Reference Range Interpretation Comments MAGNESIUM (test code = 9087944201) 2.0 mg/dL 1.7-2.4 Lab Interpretation (test code = Normal 74141-9) [facility] GLUCOSE (AUTOMATED)2020-07-17 17:39:06 Test Item Value Reference Range Interpretation Comments POCT GLU (test code = 221 mg/dL 70-110 H Notifi ed Provider [id number]) Lab Interpretation (test Abnormal code = 69624-6) [facility] GLUCOSE (AUTOMATED)2020-07-17 14:26:49 Test Item Value Reference Range Interpretation Comments POCT GLU (test code = 182 mg/dL 70-110 H Notifi ed Provider [id number]) Lab Interpretation (test Abnormal code = 05196-1) [facility] WITH [id number] 10:27:33 Test Item Value Reference Range Interpretation Comments WBC (test code = See_Comment [Automated 6690-2) message] The sy stem which generated this result transmitted reference range : 4.20 - 10.70 10*3/?L. The reference range was not used to interpret this result as normal/abnormal . RBC (test code = See_Comment L [Automated 979-8) message] The sy stem which generated this result transmitted reference range : 4.26 - 5.52 10*6/?L. The reference range was not used to interpret this result as normal/abnormal . HGB (test code = 8.3 g/dL 12.2-16.4 L 718-7) HCT (test code = 30.0 % 38.4-49.3 L 4544-3) MCV (test code = 97.4 fL 81.7-95.6 H 787-2) MCH (test code = 26.9 pg 26.1-32.7 785-6) MCHC (test code = 27.7 g/dL 31.2-35.0 L 786-4) RDW-SD (test code = 80.2 fL 38.5-51.6 H 04588-7) RDW-CV (test code = 22.5 % 12.1-15.4 H 788-0) PLT (test code = See_Comment [Automated 777-3) message] The sy stem which generated this result transmitted reference range : 150 - 328 10*3/ ?L. The reference r delano was not used to interpret this result as normal/abnormal . MPV (test code = 10.0 fL 9.8-13.0 21855-9) NRBC/100 WBC (test See_Comment [Automat ed code = 5011890248) message] The system which generated this result transmitted reference range : 0.0 - 10.0 /100 WBCs. The refer ence range was not u sed to interpret th is result as normal/abnormal . NRBC x10^3 (test code <0.01 See_Comment [Auto mated = 9344043623) message] The s ystem which generated this result transmitted reference range : 10*3/?L. The reference range was not used to interpret this result as normal/abnormal . GRAN MAT (NEUT) % 67.8 % (test code = 770-8) IMM GRAN % (test code 0.50 % = 3979596241) LYMPH % (test code = 20.1 % 736-9) MONO % (test code = 7.9 % 5905-5) EOS % (test code = 2.9 % 713-8) BASO % (test code = 0.8 % 706-2) GRAN MAT x10^3(ANC) 4.23 10*3/uL 1.99-6.95 (test code = 2869729852) IMM GRAN x10^3 (test 0.03 10*3/uL 0.00-0.06 code = 4584812754) LYMPH x10^3 (test code 1.25 10*3/uL 1.09-3.23 = 731-0) MONO x10^3 (test code 0.49 10*3/uL 0.36-1.02 = 742-7) EOS x10^3 (test code = 0.18 10*3/uL 0.06-0.53 711-2) BASO x10^3 (test code 0.05 10*3/uL 0.01-0.09 = 704-7) BASO STIPPLING (test Present A code = 703-9) Lab Interpretation Abnormal (test code = 59383-1) [facility] 10:25:06 Test Item Value Reference Range Interpretation Comments MAGNESIUM (test code = 8108826909) 2.2 mg/dL 1.7-2.4 Lab Interpretation (test code = Normal 07747-6) [facility] (NA, K, CL, CO2, GLUCOSE, BUN, CREATININE, CA)2020-07-17 10:25:06 Test Item Value Reference Range Interpretation Comments NA (test code = 148 mmol/L 135-145 H 1950917709) K (test code = 3.5 mmol/L 3.5-5.0 4012635309) CL (test code = 104 mmol/L 98-108 7660233710) CO2 TOTAL (test code = 38 mmol/L 23-31 H 4862615425) AGAP (test code = 2-16 2696235814) BUN (test code = 55 mg/dL 7-23 H 8775260345) GLUCOSE (test code = 167 mg/dL 70-110 H 1475113730) CREATININE (test code = 1.02 mg/dL 0.60-1.25 8339775187) CALCIUM (test code = 9.8 mg/dL 8.6-10.6 8451572371) eGFR (test code = mL/min/1.73m2 0625206406) MEG (test code = MEG) Association of Glomerular Filtration Rate (GFR) and Staging of Kidney Disease* + --+ --+ ------+| GFR (mL/min/1.73 m2) ?| With Kidney Damage ?| ?Without Kidney Damage+ --------+ --------+ +| ?>90 ?| ?Stage one ?| ? Normal ?+ ---+ ---+ -------+| ?60-89 ?| ?Stage two ?| ? Decreased GFR ? + --+ --+ ------+| ?30-59 ?| ?Stage three ?| ? Stage three ? + --+ --+ ------+| ?15-29 ?| ?Stage four ? | ? Stage four ?+ ---+ ---+ -------+| ?<15 (or dialysis) ? ?| ?Stage five ? | ? Stage five ?+ ---+ ---+ -------+ *Each stage assumes the associated GFR level has been in effect for at least three months. ?Stages 1 to 5, with or without kidney disease, indicate chronic kidney disease. Notes: Determination of stages one and two (with eGFR >59mL/min/1.73 m2) requires estimation of kidney damage for at least three months as defined by structural or functional abnormalities of the kidney, manifested by either:Pathological abnormalities or Markers of kidney damage (including abnormalities in the composition of the blood or urine or abnormalities in imaging tests). Lab Interpretation Abnormal (test code = 40702-2) [facility] GLUCOSE (AUTOMATED)2020-07-17 09:49:46 Test Item Value Reference Range Interpretation Comments POCT GLU (test code = 3817840005) 167 mg/dL 70-110 H Lab Interpretation (test code = Abnormal 96786-4) [facility] GLUCOSE (AUTOMATED)2020-07-17 05:01:42 Test Item Value Reference Range Interpretation Comments POCT GLU (test code = 8801391715) 179 mg/dL 70-110 H Lab Interpretation (test code = Abnormal 83949-5) [facility] GLUCOSE (AUTOMATED)2020-07-17 03:57:07 Test Item Value Reference Range Interpretation Comments POCT GLU (test code = 2342037053) 209 mg/dL 70-110 H Lab Interpretation (test code = Abnormal 97976-5) [facility] GLUCOSE (AUTOMATED)2020-07-17 00:03:27 Test Item Value Reference Range Interpretation Comments POCT GLU (test code = 1844560477) 205 mg/dL 70-110 H Lab Interpretation (test code = Abnormal 89526-5) [facility] (NA, K, CL, CO2, GLUCOSE, BUN, CREATININE, CA)2020-07-16 22:49:00 Test Item Value Reference Range Interpretation Comments NA (test code = 148 mmol/L 135-145 H 6834293973) K (test code = 4.1 mmol/L 3.5-5.0 4822476233) CL (test code = 105 mmol/L 98-108 8159077623) CO2 TOTAL (test code = 36 mmol/L 23-31 H 8117966290) AGAP (test code = 2-16 6308868165) BUN (test code = 57 mg/dL 7-23 H 1733182449) GLUCOSE (test code = 155 mg/dL 70-110 H 2370751602) CREATININE (test code = 1.15 mg/dL 0.60-1.25 2071922333) CALCIUM (test code = 9.5 mg/dL 8.6-10.6 5415475531) eGFR (test code = mL/min/1.73m2 3647852047) MEG (test code = MEG) Association of Glomerular Filtration Rate (GFR) and Staging of Kidney Disease* + --+ --+ ------+| GFR (mL/min/1.73 m2) ?| With Kidney Damage ?| ?Without Kidney Damage+ --------+ --------+ +| ?>90 ?| ?Stage one ?| ? Normal ?+ ---+ ---+ -------+| ?60-89 ?| ?Stage two ?| ? Decreased GFR ? + --+ --+ ------+| ?30-59 ?| ?Stage three ?| ? Stage three ? + --+ --+ ------+| ?15-29 ?| ?Stage four ? | ? Stage four ?+ ---+ ---+ -------+| ?<15 (or dialysis) ? ?| ?Stage five ? | ? Stage five ?+ ---+ ---+ -------+ *Each stage assumes the associated GFR level has been in effect for at least three months. ?Stages 1 to 5, with or without kidney disease, indicate chronic kidney disease. Notes: Determination of stages one and two (with eGFR >59mL/min/1.73 m2) requires estimation of kidney damage for at least three months as defined by structural or functional abnormalities of the kidney, manifested by either:Pathological abnormalities or Markers of kidney damage (including abnormalities in the composition of the blood or urine or abnormalities in imaging tests). Lab Interpretation Abnormal (test code = 73860-6) [facility] 22:49:00 Test Item Value Reference Range Interpretation Comments MAGNESIUM (test code = 4087617925) 2.4 mg/dL 1.7-2.4 Lab Interpretation (test code = Normal 90290-1) [facility] + LACTIC [id number] 22:22:07 Test Item Value Reference Range Interpretation Comments PH (test code = 7.32-7.42 1668864696) PCO2 CLAUDINE (test code = See_Comment H [Auto mated 4131905893) message] The sy stem which generated this result transmitted reference range : 41 - 51 mmHg. The reference range was not used to interpret this result as normal/abnormal . PO2 CLAUDINE (test code = See_Comment [Autom ated 1978667495) message] The sy stem which generated this result transmitted reference range : 25 - 40 mmHg. The reference range was not used to interpret this result as normal/abnormal . HCO3 CLAUDINE (test code = See_Comment H [Auto mated 9537097127) message] The sy stem which generated this result transmitted reference range : 24 - 28 mEq/L. The reference range was not used to interpret this result as normal/abnormal . AC VBE(BEAKER) (test mEq/L code = 9764083224) THB CLAUDINE (test code = 9.2 g/dL 13.5-18.0 L 6014612174) %O2HB CLAUDINE (test code = 59.9 % 52.0-63.0 7563008001) %COHB CLAUDINE (test code = 1.6 % 0.0-1.5 H 1423735286) %METHB CLAUDINE (test code = 0.3 % 0.4-1.5 L 6125700603) VOL%O2 CLAUDINE (test code = 7.8 % 6.0-12.0 9249051777) NA (test code = 148 mmol/L 135-145 H 8782143479) K+ (test code = 4.0 mmol/L 3.5-5.0 9618940198) AC CA IONZ (test code = 5.00 mg/dL 4.50-5.30 5817495435) GLUCOSE (test code = 146 mg/dL 70-110 H 8501389749) LACTIC ACID (test code 1.60 mmol/L 0.50-2.20 = 8957742378) Lab Interpretation Abnormal (test code = 80011-7) [facility] GLUCOSE (AUTOMATED)2020-07-16 21:02:52 Test Item Value Reference Range Interpretation Comments POCT GLU (test code = 181 mg/dL 70-110 H Notifi ed Provider [id number]) Lab Interpretation (test Abnormal code = 18333-2) [facility] GLUCOSE (AUTOMATED)2020-07-16 16:24:54 Test Item Value Reference Range Interpretation Comments POCT GLU (test code = 254 mg/dL 70-110 H Notifi ed Provider [id number]) Lab Interpretation (test Abnormal code = 86276-6) [facility] GLUCOSE (AUTOMATED)2020-07-16 13:35:12 Test Item Value Reference Range Interpretation Comments POCT GLU (test code = 194 mg/dL 70-110 H Notifi ed Provider [id number]) Lab Interpretation (test Abnormal code = 36720-1) [id number] 11:50:29 Test Item Value Reference Range Interpretation Comments FREE T4 (test code = See_Comment H [Autom ated message] 4749754032) The system [employer] generated this result transmitted ref erence range: 0.78 - 2 .20 ng/dL:. The ref erence range was not u sed to interpret this result as normal/abnor mal. Lab Interpretation (test Abnormal code = 89700-0) [facility] 11:35:10 Test Item Value Reference Range Interpretation Comments MAGNESIUM (test code = 0308256790) 2.5 mg/dL 1.7-2.4 H Lab Interpretation (test code = Abnormal 18293-8) [facility] METABOLIC PANEL (NA, K, CL, CO2, GLUCOSE, BUN, CREATININE, CA)2020-07-16 11:35:10 Test Item Value Reference Range Interpretation Comments NA (test code = 149 mmol/L 135-145 H 4035726734) K (test code = 4.1 mmol/L 3.5-5.0 7742417823) CL (test code = 107 mmol/L 98-108 2712248284) CO2 TOTAL (test code = 33 mmol/L 23-31 H 5933698694) AGAP (test code = 2-16 5563697192) BUN (test code = 53 mg/dL 7-23 H 2357773631) GLUCOSE (test code = 172 mg/dL 70-110 H 5333509097) CREATININE (test code = 0.98 mg/dL 0.60-1.25 1122524451) CALCIUM (test code = 9.7 mg/dL 8.6-10.6 4700434428) eGFR (test code = mL/min/1.73m2 3104821256) MEG (test code = MEG) Association of Glomerular Filtration Rate (GFR) and Staging of Kidney Disease* + --+ --+ ------+| GFR (mL/min/1.73 m2) ?| With Kidney Damage ?| ?Without Kidney Damage+ --------+ --------+ +| ?>90 ?| ?Stage one ?| ? Normal ?+ ---+ ---+ -------+| ?60-89 ?| ?Stage two ?| ? Decreased GFR ? + --+ --+ ------+| ?30-59 ?| ?Stage three ?| ? Stage three ? + --+ --+ ------+| ?15-29 ?| ?Stage four ? | ? Stage four ?+ ---+ ---+ -------+| ?<15 (or dialysis) ? ?| ?Stage five ? | ? Stage five ?+ ---+ ---+ -------+ *Each stage assumes the associated GFR level has been in effect for at least three months. ?Stages 1 to 5, with or without kidney disease, indicate chronic kidney disease. Notes: Determination of stages one and two (with eGFR >59mL/min/1.73 m2) requires estimation of kidney damage for at least three months as defined by structural or functional abnormalities of the kidney, manifested by either:Pathological abnormalities or Markers of kidney damage (including abnormalities in the composition of the blood or urine or abnormalities in imaging tests). Lab Interpretation Abnormal (test code = 62399-0) [facility] GLUCOSE (AUTOMATED)2020-07-16 10:49:54 Test Item Value Reference Range Interpretation Comments POCT GLU (test code = 3740560500) 160 mg/dL 70-110 H Lab Interpretation (test code = Abnormal 00964-0) [facility] WITH [id number] 10:26:00 Test Item Value Reference Range Interpretation Comments WBC (test code = See_Comment [Automated 6690-2) message] The sy stem which generated this result transmitted reference range : 4.20 - 10.70 10*3/?L. The reference range was not used to interpret this result as normal/abnormal . RBC (test code = See_Comment L [Automated 789-8) message] The sy stem which generated this result transmitted reference range : 4.26 - 5.52 10*6/?L. The reference range was not used to interpret this result as normal/abnormal . HGB (test code = 8.4 g/dL 12.2-16.4 L 718-7) HCT (test code = 29.5 % 38.4-49.3 L 4544-3) MCV (test code = 97.0 fL 81.7-95.6 H 787-2) MCH (test code = 27.6 pg 26.1-32.7 785-6) MCHC (test code = 28.5 g/dL 31.2-35.0 L 786-4) RDW-SD (test code = 80.9 fL 38.5-51.6 H 23116-3) RDW-CV (test code = 22.9 % 12.1-15.4 H 788-0) PLT (test code = See_Comment [Automated 777-3) message] The sy stem which generated this result transmitted reference range : 150 - 328 10*3/ ?L. The reference r delano was not used to interpret this result as normal/abnormal . MPV (test code = 10.4 fL 9.8-13.0 46183-3) NRBC/100 WBC (test See_Comment [Automat ed code = 0302191859) message] The system which generated this result transmitted reference range : 0.0 - 10.0 /100 WBCs. The refer ence range was not u sed to interpret th is result as normal/abnormal . NRBC x10^3 (test code <0.01 See_Comment [Auto mated = 3124510966) message] The s ystem which generated this result transmitted reference range : 10*3/?L. The reference range was not used to interpret this result as normal/abnormal . GRAN MAT (NEUT) % 69.1 % (test code = 770-8) IMM GRAN % (test code 0.30 % = 9322685161) LYMPH % (test code = 19.6 % 736-9) MONO % (test code = 7.9 % 5905-5) EOS % (test code = 2.3 % 713-8) BASO % (test code = 0.8 % 706-2) GRAN MAT x10^3(ANC) 4.12 10*3/uL 1.99-6.95 (test code = 4534285015) IMM GRAN x10^3 (test <0.03 0.00-0.06 code = 2920533306) LYMPH x10^3 (test code 1.17 10*3/uL 1.09-3.23 = 731-0) MONO x10^3 (test code 0.47 10*3/uL 0.36-1.02 = 742-7) EOS x10^3 (test code = 0.14 10*3/uL 0.06-0.53 711-2) BASO x10^3 (test code 0.05 10*3/uL 0.01-0.09 = 704-7) Lab Interpretation Abnormal (test code = 87124-2) [facility] with Heparin Drip)2020-07-16 09:56:56 Test Item Value Reference Range Interpretation Comments APTT Patient (test code See_Comment H [Au tomated message] = 3173-2) The system [employer] generated this result transmitted ref erence range: 26 - 36 Seconds. The reference range was not used to int erpret this result as normal/abnormal . Lab Interpretation (test Abnormal code = 15829-7) [facility]2020-07-16 08:38:28 Test Item Value Reference Range Interpretation Comments POCT GLU (test code = 3125126089) 175 mg/dL 70-110 H Lab Interpretation (test code = Abnormal 35287-3) [facility] GLUCOSE (AUTOMATED)2020-07-16 04:35:08 Test Item Value Reference Range Interpretation Comments POCT GLU (test code = 3161250357) 143 mg/dL 70-110 H Lab Interpretation (test code = Abnormal 01985-3) [facility] GLUCOSE (AUTOMATED)2020-07-16 00:10:40 Test Item Value Reference Range Interpretation Comments POCT GLU (test code = 3993743492) 167 mg/dL 70-110 H Lab Interpretation (test code = Abnormal 64302-0) [facility] METABOLIC PANEL (NA, K, CL, CO2, GLUCOSE, BUN, CREATININE, CA)2020-07-15 21:28:40 Test Item Value Reference Range Interpretation Comments NA (test code = 149 mmol/L 135-145 H 5288070659) K (test code = 3.9 mmol/L 3.5-5.0 2061107877) CL (test code = 107 mmol/L 98-108 4592860376) CO2 TOTAL (test code = 37 mmol/L 23-31 H 0892441515) AGAP (test code = 2-16 6561589452) BUN (test code = 60 mg/dL 7-23 H 4212022012) GLUCOSE (test code = 151 mg/dL 70-110 H 9435001722) CREATININE (test code = 1.04 mg/dL 0.60-1.25 1802565225) CALCIUM (test code = 9.8 mg/dL 8.6-10.6 0855301577) eGFR (test code = mL/min/1.73m2 6853342848) MEG (test code = MEG) Association of Glomerular Filtration Rate (GFR) and Staging of Kidney Disease* + --+ --+ ------+| GFR (mL/min/1.73 m2) ?| With Kidney Damage ?| ?Without Kidney Damage+ --------+ --------+ +| ?>90 ?| ?Stage one ?| ? Normal ?+ ---+ ---+ -------+| ?60-89 ?| ?Stage two ?| ? Decreased GFR ? + --+ --+ ------+| ?30-59 ?| ?Stage three ?| ? Stage three ? + --+ --+ ------+| ?15-29 ?| ?Stage four ? | ? Stage four ?+ ---+ ---+ -------+| ?<15 (or dialysis) ? ?| ?Stage five ? | ? Stage five ?+ ---+ ---+ -------+ *Each stage assumes the associated GFR level has been in effect for at least three months. ?Stages 1 to 5, with or without kidney disease, indicate chronic kidney disease. Notes: Determination of stages one and two (with eGFR >59mL/min/1.73 m2) requires estimation of kidney damage for at least three months as defined by structural or functional abnormalities of the kidney, manifested by either:Pathological abnormalities or Markers of kidney damage (including abnormalities in the composition of the blood or urine or abnormalities in imaging tests). Lab Interpretation Abnormal (test code = 38652-7) [facility] use with Heparin Drip[facility]2020-07-15 21:20:58 Test Item Value Reference Range Interpretation Comments APTT Patient (test code See_Comment H [Au tomated message] = 3173-2) The system [employer] generated this result transmitted ref erence range: 26 - 36 Seconds. The reference range was not used to int erpret this result as normal/abnormal . Lab Interpretation (test Abnormal code = 18357-8) [facility]2020-07-15 21:02:30 Test Item Value Reference Range Interpretation Comments POCT GLU (test code = 156 mg/dL 70-110 H Notifi ed Provider [id number]) Lab Interpretation (test Abnormal code = 93303-7) [facility] + LACTIC [id number] 20:41:37 Test Item Value Reference Range Interpretation Comments PH (test code = 7.32-7.42 H 0165662006) PCO2 CLAUDINE (test code = See_Comment H [Auto mated 4914261314) message] The sy stem which generated this result transmitted reference range : 41 - 51 mmHg. The reference range was not used to interpret this result as normal/abnormal . PO2 CLAUDINE (test code = See_Comment [Autom ated 1853385617) message] The sy stem which generated this result transmitted reference range : 25 - 40 mmHg. The reference range was not used to interpret this result as normal/abnormal . HCO3 CLAUDINE (test code = See_Comment H [Auto mated 8619417761) message] The sy stem which generated this result transmitted reference range : 24 - 28 mEq/L. The reference range was not used to interpret this result as normal/abnormal . AC VBE(BEAKER) (test mEq/L code = 9343269011) THB CLAUDINE (test code = 8.0 g/dL 13.5-18.0 LL 9967179542) %O2HB CLAUDINE (test code = 61.6 % 52.0-63.0 0887004984) %COHB CLAUDINE (test code = 1.2 % 0.0-1.5 3076325847) %METHB CLAUDINE (test code = 0.3 % 0.4-1.5 L 5354166341) VOL%O2 CLAUDINE (test code = 7.0 % 6.0-12.0 4980612641) NA (test code = 139 mmol/L 135-145 5649785780) K+ (test code = 10.5 mmol/L 3.5-5.0 HH 5393056109) AC CA IONZ (test code = 4.50 mg/dL 4.50-5.30 9394570669) GLUCOSE (test code = 159 mg/dL 70-110 H 3151409069) LACTIC ACID (test code 1.48 mmol/L 0.50-2.20 = 0758434796) Lab Interpretation Abnormal (test code = 22388-5) [facility] GLUCOSE (AUTOMATED)2020-07-15 16:12:17 Test Item Value Reference Range Interpretation Comments POCT GLU (test code = 1630573945) 146 mg/dL 70-110 H Lab Interpretation (test code = Abnormal 88777-0) [facility] GLUCOSE (AUTOMATED)2020-07-15 13:23:47 Test Item Value Reference Range Interpretation Comments POCT GLU (test code = 7094575902) 149 mg/dL 70-110 H Lab Interpretation (test code = Abnormal 40651-8) [facility] 10:12:46 Test Item Value Reference Range Interpretation Comments MAGNESIUM (test code = 8954960984) 2.5 mg/dL 1.7-2.4 H Lab Interpretation (test code = Abnormal 33781-3) [facility] METABOLIC PANEL (NA, K, CL, CO2, GLUCOSE, BUN, CREATININE, CA)2020-07-15 10:12:46 Test Item Value Reference Range Interpretation Comments NA (test code = 150 mmol/L 135-145 H 6957864682) K (test code = 3.7 mmol/L 3.5-5.0 9268871591) CL (test code = 105 mmol/L 98-108 6580049940) CO2 TOTAL (test code = 38 mmol/L 23-31 H 6317853780) AGAP (test code = 2-16 3771719164) BUN (test code = 67 mg/dL 7-23 H 8932353482) GLUCOSE (test code = 133 mg/dL 70-110 H 8411132643) CREATININE (test code = 1.08 mg/dL 0.60-1.25 7692871795) CALCIUM (test code = 10.2 mg/dL 8.6-10.6 1943439950) eGFR (test code = mL/min/1.73m2 6081102540) MEG (test code = MEG) Association of Glomerular Filtration Rate (GFR) and Staging of Kidney Disease* + --+ --+ ------+| GFR (mL/min/1.73 m2) ?| With Kidney Damage ?| ?Without Kidney Damage+ --------+ --------+ +| ?>90 ?| ?Stage one ?| ? Normal ?+ ---+ ---+ -------+| ?60-89 ?| ?Stage two ?| ? Decreased GFR ? + --+ --+ ------+| ?30-59 ?| ?Stage three ?| ? Stage three ? + --+ --+ ------+| ?15-29 ?| ?Stage four ? | ? Stage four ?+ ---+ ---+ -------+| ?<15 (or dialysis) ? ?| ?Stage five ? | ? Stage five ?+ ---+ ---+ -------+ *Each stage assumes the associated GFR level has been in effect for at least three months. ?Stages 1 to 5, with or without kidney disease, indicate chronic kidney disease. Notes: Determination of stages one and two (with eGFR >59mL/min/1.73 m2) requires estimation of kidney damage for at least three months as defined by structural or functional abnormalities of the kidney, manifested by either:Pathological abnormalities or Markers of kidney damage (including abnormalities in the composition of the blood or urine or abnormalities in imaging tests). Lab Interpretation Abnormal (test code = 90987-0) [facility] use with Heparin Drip)2020-07-15 09:54:26 Test Item Value Reference Range Interpretation Comments APTT Patient (test code See_Comment H [Au tomated message] = 3173-2) The system [employer] generated this result transmitted ref erence range: 26 - 36 Seconds. The reference range was not used to int erpret this result as normal/abnormal . Lab Interpretation (test Abnormal code = 65641-6) [facility] WITH [id number] 09:39:25 Test Item Value Reference Range Interpretation Comments WBC (test code = See_Comment [Automated 6690-2) message] The sy stem which generated this result transmitted reference range : 4.20 - 10.70 10*3/?L. The reference range was not used to interpret this result as normal/abnormal . RBC (test code = See_Comment L [Automated 789-8) message] The sy stem which generated this result transmitted reference range : 4.26 - 5.52 10*6/?L. The reference range was not used to interpret this result as normal/abnormal . HGB (test code = 8.6 g/dL 12.2-16.4 L 718-7) HCT (test code = 30.4 % 38.4-49.3 L 4544-3) MCV (test code = 96.5 fL 81.7-95.6 H 787-2) MCH (test code = 27.3 pg 26.1-32.7 785-6) MCHC (test code = 28.3 g/dL 31.2-35.0 L 786-4) RDW-SD (test code = 79.4 fL 38.5-51.6 H 92998-4) RDW-CV (test code = 22.9 % 12.1-15.4 H 788-0) PLT (test code = See_Comment H [Automated 777-3) message] The sy stem which generated this result transmitted reference range : 150 - 328 10*3/ ?L. The reference r delano was not used to interpret this result as normal/abnormal . MPV (test code = 10.4 fL 9.8-13.0 49503-4) NRBC/100 WBC (test See_Comment [Automat ed code = 2766732706) message] The system which generated this result transmitted reference range : 0.0 - 10.0 /100 WBCs. The refer ence range was not u sed to interpret th is result as normal/abnormal . NRBC x10^3 (test code <0.01 See_Comment [Auto mated = 7688013065) message] The s ystem which generated this result transmitted reference range : 10*3/?L. The reference range was not used to interpret this result as normal/abnormal . GRAN MAT (NEUT) % 70.8 % (test code = 770-8) IMM GRAN % (test code 0.50 % = 5427173682) LYMPH % (test code = 17.8 % 736-9) MONO % (test code = 8.4 % 5905-5) EOS % (test code = 1.8 % 713-8) BASO % (test code = 0.7 % 706-2) GRAN MAT x10^3(ANC) 4.30 10*3/uL 1.99-6.95 (test code = 9986008761) IMM GRAN x10^3 (test 0.03 10*3/uL 0.00-0.06 code = 6737289294) LYMPH x10^3 (test code 1.08 10*3/uL 1.09-3.23 L = 731-0) MONO x10^3 (test code 0.51 10*3/uL 0.36-1.02 = 742-7) EOS x10^3 (test code = 0.11 10*3/uL 0.06-0.53 711-2) BASO x10^3 (test code 0.04 10*3/uL 0.01-0.09 = 704-7) Lab Interpretation Abnormal (test code = 92640-7) [facility] GLUCOSE (AUTOMATED)2020-07-15 05:17:41 Test Item Value Reference Range Interpretation Comments POCT GLU (test code = 1210047402) 146 mg/dL 70-110 H Lab Interpretation (test code = Abnormal 09542-0) [facility] GLUCOSE (AUTOMATED)2020-07-15 00:19:20 Test Item Value Reference Range Interpretation Comments POCT GLU (test code = 8838075528) 165 mg/dL 70-110 H Lab Interpretation (test code = Abnormal 75497-5) [facility] (for use with Heparin Drip)2020-07-14 22:42:44 Test Item Value Reference Range Interpretation Comments APTT Patient (test code See_Comment H [Au tomated message] = 3173-2) The system [employer] generated this result transmitted ref erence range: 26 - 36 Seconds. The reference range was not used to int erpret this result as normal/abnormal . Lab Interpretation (test Abnormal code = 17057-5) [facility] GLUCOSE (AUTOMATED)2020-07-14 21:34:16 Test Item Value Reference Range Interpretation Comments POCT GLU (test code = 8559870815) 154 mg/dL 70-110 H Lab Interpretation (test code = Abnormal 13083-5) [facility] (for use with Heparin Drip)2020-07-14 16:59:24 Test Item Value Reference Range Interpretation Comments APTT Patient (test code See_Comment H [Au tomated message] = 3173-2) The system [employer] generated this result transmitted ref erence range: 26 - 36 Seconds. The reference range was not used to int erpret this result as normal/abnormal . Lab Interpretation (test Abnormal code = 37291-6) [facility] GLUCOSE (AUTOMATED)2020-07-14 16:42:12 Test Item Value Reference Range Interpretation Comments POCT GLU (test code = 1594490826) 148 mg/dL 70-110 H Lab Interpretation (test code = Abnormal 76417-1) [facility] GLUCOSE (AUTOMATED)2020-07-14 14:48:07 Test Item Value Reference Range Interpretation Comments POCT GLU (test code = 9191542351) 164 mg/dL 70-110 H Lab Interpretation (test code = Abnormal 69465-3) [facility] + LACTIC [id number] 13:06:45 Test Item Value Reference Range Interpretation Comments PH (test code = 2) 7.35-7.45 PCO2 (test code = See_Comment H [Automate d 9195498580) message] The sy stem which generated this result transmitted reference range : 35 - 45 mmHg. The reference range was not used to interpret this result as normal/abnormal . PO2 (test code = See_Comment L [Automated 3024110416) message] The sy stem which generated this result transmitted reference range : 80 - 100 mmHg. The reference range was not used to interpret this result as normal/abnormal . HCO3 (test code = See_Comment H [Automate d 8302867818) message] The sy stem which generated this result transmitted reference range : 22 - 26 mEq/L. The reference range was not used to interpret this result as normal/abnormal . BE (test code = See_Comment H [Automated 0389537838) message] The sy stem which generated this result transmitted reference range : -3.0 - 3.0 mEq/ L. The reference r delano was not used to interpret this result as normal/abnormal . THB (test code = 14.5 g/dL 13.5-18.0 3674126362) %O2HB (test code = 65.8 % 94.0-99.0 L 2262083706) %COHB ART (test code = 1.4 % 0.0-1.5 3767752946) %METHB ART (test code = 0.3 % 0.4-1.5 L 9590769988) VOL%O2 ART (test code = 13.4 % 15.0-23.0 L 6362297484) NA (test code = 144 mmol/L 135-145 9540062670) K+ (test code = 3.3 mmol/L 3.5-5.0 L 9947778830) AC CA IONZ (test code = 4.60 mg/dL 4.50-5.30 3598116363) GLUCOSE (test code = 130 mg/dL 70-110 H 5572294133) LACTIC ACID (test code 1.29 mmol/L 0.50-2.20 = 5004003657) Lab Interpretation Abnormal (test code = 33695-3) [facility] GLUCOSE (AUTOMATED)2020-07-14 09:39:12 Test Item Value Reference Range Interpretation Comments POCT GLU (test code = 7523927721) 155 mg/dL 70-110 H Lab Interpretation (test code = Abnormal 92311-5) [facility] 07:59:24 Test Item Value Reference Range Interpretation Comments MAGNESIUM (test code = 0707373455) 2.6 mg/dL 1.7-2.4 H Lab Interpretation (test code = Abnormal 06750-5) [facility] (NA, K, CL, CO2, GLUCOSE, BUN, CREATININE, CA)2020-07-14 07:59:24 Test Item Value Reference Range Interpretation Comments NA (test code = 147 mmol/L 135-145 H 9362021640) K (test code = 4.1 mmol/L 3.5-5.0 2608013827) CL (test code = 101 mmol/L 98-108 4035128212) CO2 TOTAL (test code = 37 mmol/L 23-31 H 9928815445) AGAP (test code = 2-16 7468943768) BUN (test code = 69 mg/dL 7-23 H 5984222134) GLUCOSE (test code = 147 mg/dL 70-110 H 1915778951) CREATININE (test code = 1.27 mg/dL 0.60-1.25 H 5040407070) CALCIUM (test code = 10.2 mg/dL 8.6-10.6 3143413189) eGFR (test code = mL/min/1.73m2 2540496708) MEG (test code = MEG) Association of Glomerular Filtration Rate (GFR) and Staging of Kidney Disease* + --+ --+ ------+| GFR (mL/min/1.73 m2) ?| With Kidney Damage ?| ?Without Kidney Damage+ --------+ --------+ +| ?>90 ?| ?Stage one ?| ? Normal ?+ ---+ ---+ -------+| ?60-89 ?| ?Stage two ?| ? Decreased GFR ? + --+ --+ ------+| ?30-59 ?| ?Stage three ?| ? Stage three ? + --+ --+ ------+| ?15-29 ?| ?Stage four ? | ? Stage four ?+ ---+ ---+ -------+| ?<15 (or dialysis) ? ?| ?Stage five ? | ? Stage five ?+ ---+ ---+ -------+ *Each stage assumes the associated GFR level has been in effect for at least three months. ?Stages 1 to 5, with or without kidney disease, indicate chronic kidney disease. Notes: Determination of stages one and two (with eGFR >59mL/min/1.73 m2) requires estimation of kidney damage for at least three months as defined by structural or functional abnormalities of the kidney, manifested by either:Pathological abnormalities or Markers of kidney damage (including abnormalities in the composition of the blood or urine or abnormalities in imaging tests). Lab Interpretation Abnormal (test code = 93832-2) [facility] WITH [id number] 07:41:20 Test Item Value Reference Range Interpretation Comments WBC (test code = See_Comment [Automated 6690-2) message] The sy stem which generated this result transmitted reference range : 4.20 - 10.70 10*3/?L. The reference range was not used to interpret this result as normal/abnormal . RBC (test code = See_Comment L [Automated 789-8) message] The sy stem which generated this result transmitted reference range : 4.26 - 5.52 10*6/?L. The reference range was not used to interpret this result as normal/abnormal . HGB (test code = 8.5 g/dL 12.2-16.4 L 718-7) HCT (test code = 30.4 % 38.4-49.3 L 4544-3) MCV (test code = 97.4 fL 81.7-95.6 H 787-2) MCH (test code = 27.2 pg 26.1-32.7 785-6) MCHC (test code = 28.0 g/dL 31.2-35.0 L 786-4) RDW-SD (test code = 82.2 fL 38.5-51.6 H 76585-9) RDW-CV (test code = 23.5 % 12.1-15.4 H 788-0) PLT (test code = See_Comment H [Automated 777-3) message] The sy stem which generated this result transmitted reference range : 150 - 328 10*3/ ?L. The reference r delano was not used to interpret this result as normal/abnormal . MPV (test code = 10.6 fL 9.8-13.0 80604-1) NRBC/100 WBC (test See_Comment [Automat ed code = 0651037454) message] The system which generated this result transmitted reference range : 0.0 - 10.0 /100 WBCs. The refer ence range was not u sed to interpret th is result as normal/abnormal . NRBC x10^3 (test code <0.01 See_Comment [Auto mated = 6503055239) message] The s ystem which generated this result transmitted reference range : 10*3/?L. The reference range was not used to interpret this result as normal/abnormal . GRAN MAT (NEUT) % 71.2 % (test code = 770-8) IMM GRAN % (test code 0.30 % = 7923215473) LYMPH % (test code = 16.3 % 736-9) MONO % (test code = 9.6 % 5905-5) EOS % (test code = 1.9 % 713-8) BASO % (test code = 0.7 % 706-2) GRAN MAT x10^3(ANC) 4.99 10*3/uL 1.99-6.95 (test code = 7129999239) IMM GRAN x10^3 (test <0.03 0.00-0.06 code = 6383117129) LYMPH x10^3 (test code 1.14 10*3/uL 1.09-3.23 = 731-0) MONO x10^3 (test code 0.67 10*3/uL 0.36-1.02 = 742-7) EOS x10^3 (test code = 0.13 10*3/uL 0.06-0.53 711-2) BASO x10^3 (test code 0.05 10*3/uL 0.01-0.09 = 704-7) Lab Interpretation Abnormal (test code = 34446-9) [facility]2020-07-14 05:16:46 Test Item Value Reference Range Interpretation Comments POCT GLU (test code = 7958107584) 158 mg/dL 70-110 H Lab Interpretation (test code = Abnormal 78015-3) [facility] with Heparin Drip)2020-07-14 03:24:00 Test Item Value Reference Range Interpretation Comments APTT Patient (test code See_Comment H [Au tomated message] = 3173-2) The system [employer] generated this result transmitted ref erence range: 26 - 36 Seconds. The reference range was not used to int erpret this result as normal/abnormal . Lab Interpretation (test Abnormal code = 02974-0) [facility] CULTURE [id number] 02:01:27 Test Item Value Reference Range Interpretation Comments Blood Culture-Aerobic No organisms No growth Previo us (test code = 74888-7) isolated prelim inary verified result was Culture In Progress on 07/09/2020 at 000 1 CDTPrevious preliminary verified result was No growth a t 24 hours on 07/09/2020 at 210 1 CDTPrevious preliminary verified result was No growth a t 48 hours on 07/10/2020 at 210 1 CDTPrevious preliminary verified result was No growth a t 72 hours on 07/11/2020 at 210 1 CDT Blood No organisms No growth Previous Culture-Anaerobic isolated preliminar y (test code = 62656-5) verifi ed result was Culture In Progress on 07/09/2020 at 000 1 CDTPrevious preliminary verified result was No growth a t 24 hours on 07/09/2020 at 210 1 CDTPrevious preliminary verified result was No growth a t 48 hours on 07/10/2020 at 210 1 CDTPrevious preliminary verified result was No growth a t 72 hours on 07/11/2020 at 210 1 CDT Lab Interpretation Normal (test code = 55914-9) [facility] CULTURE [id number] 02:01:27 Test Item Value Reference Range Interpretation Comments Blood Culture-Aerobic No organisms No growth Previo us (test code = 69055-2) isolated prelim inary verified result was Culture In Progress on 07/09/2020 at 000 1 CDTPrevious preliminary verified result was No growth a t 24 hours on 07/09/2020 at 210 1 CDTPrevious preliminary verified result was No growth a t 48 hours on 07/10/2020 at 210 1 CDTPrevious preliminary verified result was No growth a t 72 hours on 07/11/2020 at 210 1 CDT Blood No organisms No growth Previous Culture-Anaerobic isolated preliminar y (test code = 73512-7) verifi ed result was Culture In Progress on 07/09/2020 at 000 1 CDTPrevious preliminary verified result was No growth a t 24 hours on 07/09/2020 at 210 1 CDTPrevious preliminary verified result was No growth a t 48 hours on 07/10/2020 at 210 1 CDTPrevious preliminary verified result was No growth a t 72 hours on 07/11/2020 at 210 1 CDT Lab Interpretation Normal (test code = 77960-1) [facility]2020-07-14 00:29:07 Test Item Value Reference Range Interpretation Comments POCT GLU (test code = 7929234058) 162 mg/dL 70-110 H Lab Interpretation (test code = Abnormal 81864-6) [facility] METABOLIC PANEL (NA, K, CL, CO2, GLUCOSE, BUN, CREATININE, CA)2020-07-13 22:13:03 Test Item Value Reference Range Interpretation Comments NA (test code = 147 mmol/L 135-145 H 1782912133) K (test code = 4.0 mmol/L 3.5-5.0 9749544007) CL (test code = 102 mmol/L 98-108 6845358864) CO2 TOTAL (test code = 38 mmol/L 23-31 H 1126385133) AGAP (test code = 2-16 8713277333) BUN (test code = 61 mg/dL 7-23 H 7757009139) GLUCOSE (test code = 143 mg/dL 70-110 H 2279515641) CREATININE (test code = 1.21 mg/dL 0.60-1.25 3784404069) CALCIUM (test code = 9.7 mg/dL 8.6-10.6 0724598058) eGFR (test code = mL/min/1.73m2 8093666833) MEG (test code = MEG) Association of Glomerular Filtration Rate (GFR) and Staging of Kidney Disease* + --+ --+ ------+| GFR (mL/min/1.73 m2) ?| With Kidney Damage ?| ?Without Kidney Damage+ --------+ --------+ +| ?>90 ?| ?Stage one ?| ? Normal ?+ ---+ ---+ -------+| ?60-89 ?| ?Stage two ?| ? Decreased GFR ? + --+ --+ ------+| ?30-59 ?| ?Stage three ?| ? Stage three ? + --+ --+ ------+| ?15-29 ?| ?Stage four ? | ? Stage four ?+ ---+ ---+ -------+| ?<15 (or dialysis) ? ?| ?Stage five ? | ? Stage five ?+ ---+ ---+ -------+ *Each stage assumes the associated GFR level has been in effect for at least three months. ?Stages 1 to 5, with or without kidney disease, indicate chronic kidney disease. Notes: Determination of stages one and two (with eGFR >59mL/min/1.73 m2) requires estimation of kidney damage for at least three months as defined by structural or functional abnormalities of the kidney, manifested by either:Pathological abnormalities or Markers of kidney damage (including abnormalities in the composition of the blood or urine or abnormalities in imaging tests). Lab Interpretation Abnormal (test code = 11785-3) [facility]2020-07-13 22:11:02 Test Item Value Reference Range Interpretation Comments POCT GLU (test code = 1610652839) 167 mg/dL 70-110 H Lab Interpretation (test code = Abnormal 80175-4) [facility] + LACTIC [id number] 17:40:59 Test Item Value Reference Range Interpretation Comments PH (test code = 2) 7.35-7.45 PCO2 (test code = See_Comment H [Automate d 5073489096) message] The sy stem which generated this result transmitted reference range : 35 - 45 mmHg. The reference range was not used to interpret this result as normal/abnormal . PO2 (test code = See_Comment [Automated 6251428560) message] The sy stem which generated this result transmitted reference range : 80 - 100 mmHg. The reference range was not used to interpret this result as normal/abnormal . HCO3 (test code = See_Comment H [Automate d 8069539395) message] The sy stem which generated this result transmitted reference range : 22 - 26 mEq/L. The reference range was not used to interpret this result as normal/abnormal . BE (test code = See_Comment H [Automated 8903629254) message] The sy stem which generated this result transmitted reference range : -3.0 - 3.0 mEq/ L. The reference r delano was not used to interpret this result as normal/abnormal . THB (test code = 9.6 g/dL 13.5-18.0 L 3642700610) %O2HB (test code = 95.2 % 94.0-99.0 1409021451) %COHB ART (test code = 0.4 % 0.0-1.5 2684958249) %METHB ART (test code = 0.3 % 0.4-1.5 L 3986396012) VOL%O2 ART (test code = 13.0 % 15.0-23.0 L 6696577273) NA (test code = 143 mmol/L 135-145 5436087132) K+ (test code = 4.1 mmol/L 3.5-5.0 7773453051) AC CA IONZ (test code = 4.80 mg/dL 4.50-5.30 2463848922) GLUCOSE (test code = 159 mg/dL 70-110 H 8066244722) LACTIC ACID (test code 1.18 mmol/L 0.50-2.20 = 9803682023) Lab Interpretation Abnormal (test code = 05016-7) [facility] GLUCOSE (AUTOMATED)2020-07-13 16:58:18 Test Item Value Reference Range Interpretation Comments POCT GLU (test code = 2608455360) 171 mg/dL 70-110 H Lab Interpretation (test code = Abnormal 20489-9) [facility] use with Heparin Drip)2020-07-13 13:59:51 Test Item Value Reference Range Interpretation Comments APTT Patient (test code See_Comment H [Au tomated message] = 3173-2) The system [employer] generated this result transmitted ref erence range: 26 - 36 Seconds. The reference range was not used to int erpret this result as normal/abnormal . Lab Interpretation (test Abnormal code = 73579-4) [facility] GLUCOSE (AUTOMATED)2020-07-13 12:38:13 Test Item Value Reference Range Interpretation Comments POCT GLU (test code = 2286862423) 156 mg/dL 70-110 H Lab Interpretation (test code = Abnormal 64038-2) [facility] 10:52:16 Test Item Value Reference Range Interpretation Comments MAGNESIUM (test code = 9997634875) 2.6 mg/dL 1.7-2.4 H Lab Interpretation (test code = Abnormal 83331-2) [facility] METABOLIC PANEL (NA, K, CL, CO2, GLUCOSE, BUN, CREATININE, CA)2020-07-13 10:52:16 Test Item Value Reference Range Interpretation Comments NA (test code = 145 mmol/L 135-145 4963384993) K (test code = 3.7 mmol/L 3.5-5.0 1793510106) CL (test code = 101 mmol/L 98-108 0001799502) CO2 TOTAL (test code = 38 mmol/L 23-31 H 5717616774) AGAP (test code = 2-16 7477522443) BUN (test code = 59 mg/dL 7-23 H 5118487065) GLUCOSE (test code = 135 mg/dL 70-110 H 7262370528) CREATININE (test code = 1.01 mg/dL 0.60-1.25 9229408751) CALCIUM (test code = 9.8 mg/dL 8.6-10.6 4554803764) eGFR (test code = mL/min/1.73m2 8551306466) MEG (test code = MEG) Association of Glomerular Filtration Rate (GFR) and Staging of Kidney Disease* + --+ --+ ------+| GFR (mL/min/1.73 m2) ?| With Kidney Damage ?| ?Without Kidney Damage+ --------+ --------+ +| ?>90 ?| ?Stage one ?| ? Normal ?+ ---+ ---+ -------+| ?60-89 ?| ?Stage two ?| ? Decreased GFR ? + --+ --+ ------+| ?30-59 ?| ?Stage three ?| ? Stage three ? + --+ --+ ------+| ?15-29 ?| ?Stage four ? | ? Stage four ?+ ---+ ---+ -------+| ?<15 (or dialysis) ? ?| ?Stage five ? | ? Stage five ?+ ---+ ---+ -------+ *Each stage assumes the associated GFR level has been in effect for at least three months. ?Stages 1 to 5, with or without kidney disease, indicate chronic kidney disease. Notes: Determination of stages one and two (with eGFR >59mL/min/1.73 m2) requires estimation of kidney damage for at least three months as defined by structural or functional abnormalities of the kidney, manifested by either:Pathological abnormalities or Markers of kidney damage (including abnormalities in the composition of the blood or urine or abnormalities in imaging tests). Lab Interpretation Abnormal (test code = 15128-8) [facility] WITH [id number] 10:32:51 Test Item Value Reference Range Interpretation Comments WBC (test code = See_Comment [Automated 6690-2) message] The sy stem which generated this result transmitted reference range : 4.20 - 10.70 10*3/?L. The reference range was not used to interpret this result as normal/abnormal . RBC (test code = See_Comment L [Automated 789-8) message] The sy stem which generated this result transmitted reference range : 4.26 - 5.52 10*6/?L. The reference range was not used to interpret this result as normal/abnormal . HGB (test code = 7.9 g/dL 12.2-16.4 L 718-7) HCT (test code = 27.7 % 38.4-49.3 L 4544-3) MCV (test code = 96.2 fL 81.7-95.6 H 787-2) MCH (test code = 27.4 pg 26.1-32.7 785-6) MCHC (test code = 28.5 g/dL 31.2-35.0 L 786-4) RDW-SD (test code = 82.5 fL 38.5-51.6 H 35227-1) RDW-CV (test code = 23.9 % 12.1-15.4 H 788-0) PLT (test code = See_Comment H [Automated 777-3) message] The sy stem which generated this result transmitted reference range : 150 - 328 10*3/ ?L. The reference r delano was not used to interpret this result as normal/abnormal . MPV (test code = 10.7 fL 9.8-13.0 04427-2) NRBC/100 WBC (test See_Comment [Automat ed code = 0513821738) message] The system which generated this result transmitted reference range : 0.0 - 10.0 /100 WBCs. The refer ence range was not u sed to interpret th is result as normal/abnormal . NRBC x10^3 (test code <0.01 See_Comment [Auto mated = 7957856167) message] The s ystem which generated this result transmitted reference range : 10*3/?L. The reference range was not used to interpret this result as normal/abnormal . GRAN MAT (NEUT) % 68.8 % (test code = 770-8) IMM GRAN % (test code 0.50 % = 9550591715) LYMPH % (test code = 19.7 % 736-9) MONO % (test code = 8.7 % 5905-5) EOS % (test code = 1.7 % 713-8) BASO % (test code = 0.6 % 706-2) GRAN MAT x10^3(ANC) 4.34 10*3/uL 1.99-6.95 (test code = 4753114603) IMM GRAN x10^3 (test 0.03 10*3/uL 0.00-0.06 code = 9607163924) LYMPH x10^3 (test code 1.24 10*3/uL 1.09-3.23 = 731-0) MONO x10^3 (test code 0.55 10*3/uL 0.36-1.02 = 742-7) EOS x10^3 (test code = 0.11 10*3/uL 0.06-0.53 711-2) BASO x10^3 (test code 0.04 10*3/uL 0.01-0.09 = 704-7) Lab Interpretation Abnormal (test code = 30362-6) [facility] GLUCOSE (AUTOMATED)2020-07-13 10:14:11 Test Item Value Reference Range Interpretation Comments POCT GLU (test code = 3225650953) 151 mg/dL 70-110 H Lab Interpretation (test code = Abnormal 14072-6) [facility] GLUCOSE (AUTOMATED)2020-07-13 04:14:23 Test Item Value Reference Range Interpretation Comments POCT GLU (test code = 2082447519) 154 mg/dL 70-110 H Lab Interpretation (test code = Abnormal 92367-1) [facility] use with Heparin Drip)2020-07-13 02:12:30 Test Item Value Reference Range Interpretation Comments APTT Patient (test code See_Comment H [Au tomated message] = 3173-2) The system [employer] generated this result transmitted ref erence range: 26 - 36 Seconds. The reference range was not used to int erpret this result as normal/abnormal . Lab Interpretation (test Abnormal code = 84576-8) [facility] GLUCOSE (AUTOMATED)2020-07-13 01:12:51 Test Item Value Reference Range Interpretation Comments POCT GLU (test code = 3189381806) 167 mg/dL 70-110 H Lab Interpretation (test code = Abnormal 86720-8) [facility] Center[facility] D, [id number] 00:41:25 Test Item Value Reference Range Interpretation Comments VIT D 25OH (test code = 18 ng/mL 25-80 L 81153-9) MEG (test code = MEG) Deficiency: <20 ng/mLInsufficiency: 20-24 ng/mLOptimal: 25-80 ng/mL Lab Interpretation (test Abnormal code = 29993-9) [facility]OL[facility] (NA, K, CL, CO2, GLUCOSE, BUN, CREATININE, CA)2020-07-12 23:43:51 Test Item Value Reference Range Interpretation Comments NA (test code = 140 mmol/L 135-145 1192993549) K (test code = 3.9 mmol/L 3.5-5.0 4840991741) CL (test code = 97 mmol/L 98-108 L 8935330639) CO2 TOTAL (test code = 37 mmol/L 23-31 H 4118968945) AGAP (test code = 2-16 1542831903) BUN (test code = 60 mg/dL 7-23 H 5443828917) GLUCOSE (test code = 159 mg/dL 70-110 H 4197401211) CREATININE (test code = 1.21 mg/dL 0.60-1.25 1355642787) CALCIUM (test code = 9.7 mg/dL 8.6-10.6 3512402197) eGFR (test code = mL/min/1.73m2 8728330956) MEG (test code = MEG) Association of Glomerular Filtration Rate (GFR) and Staging of Kidney Disease* + --+ --+ ------+| GFR (mL/min/1.73 m2) ?| With Kidney Damage ?| ?Without Kidney Damage+ --------+ --------+ +| ?>90 ?| ?Stage one ?| ? Normal ?+ ---+ ---+ -------+| ?60-89 ?| ?Stage two ?| ? Decreased GFR ? + --+ --+ ------+| ?30-59 ?| ?Stage three ?| ? Stage three ? + --+ --+ ------+| ?15-29 ?| ?Stage four ? | ? Stage four ?+ ---+ ---+ -------+| ?<15 (or dialysis) ? ?| ?Stage five ? | ? Stage five ?+ ---+ ---+ -------+ *Each stage assumes the associated GFR level has been in effect for at least three months. ?Stages 1 to 5, with or without kidney disease, indicate chronic kidney disease. Notes: Determination of stages one and two (with eGFR >59mL/min/1.73 m2) requires estimation of kidney damage for at least three months as defined by structural or functional abnormalities of the kidney, manifested by either:Pathological abnormalities or Markers of kidney damage (including abnormalities in the composition of the blood or urine or abnormalities in imaging tests). Lab Interpretation Abnormal (test code = 88107-4) [facility]2020-07-12 21:32:10 Test Item Value Reference Range Interpretation Comments POCT GLU (test code = 1816417594) 163 mg/dL 70-110 H Lab Interpretation (test code = Abnormal 40405-4) [facility] CenterACTIV[facility] PARTIAL THRMPLAS [id number] 18:35:39 Test Item Value Reference Range Interpretation Comments APTT Patient (test code See_Comment H [Au tomated message] = 3173-2) The system [employer] generated this result transmitted ref erence range: 26 - 36 Seconds. The reference range was not used to int erpret this result as normal/abnormal . Lab Interpretation (test Abnormal code = 28901-3) [facility] GLUCOSE (AUTOMATED)2020-07-12 16:41:12 Test Item Value Reference Range Interpretation Comments POCT GLU (test code = 6758605573) 171 mg/dL 70-110 H Lab Interpretation (test code = Abnormal 80641-6) [facility] GLUCOSE (AUTOMATED)2020-07-12 12:48:41 Test Item Value Reference Range Interpretation Comments POCT GLU (test code = 1980822539) 159 mg/dL 70-110 H Lab Interpretation (test code = Abnormal 79284-7) [facility] 10:38:02 Test Item Value Reference Range Interpretation Comments MAGNESIUM (test code = 1175787877) 2.6 mg/dL 1.7-2.4 H Lab Interpretation (test code = Abnormal 57051-4) [facility] (NA, K, CL, CO2, GLUCOSE, BUN, CREATININE, CA)2020-07-12 10:38:02 Test Item Value Reference Range Interpretation Comments NA (test code = 141 mmol/L 135-145 4476843165) K (test code = 3.9 mmol/L 3.5-5.0 8132099852) CL (test code = 99 mmol/L 98-108 0417589403) CO2 TOTAL (test code = 38 mmol/L 23-31 H 6603402318) AGAP (test code = 2-16 8806035570) BUN (test code = 58 mg/dL 7-23 H 6449334629) GLUCOSE (test code = 143 mg/dL 70-110 H 7288830112) CREATININE (test code = 1.08 mg/dL 0.60-1.25 2784668654) CALCIUM (test code = 9.8 mg/dL 8.6-10.6 9320309892) eGFR (test code = mL/min/1.73m2 7673663480) MEG (test code = MEG) Association of Glomerular Filtration Rate (GFR) and Staging of Kidney Disease* + --+ --+ ------+| GFR (mL/min/1.73 m2) ?| With Kidney Damage ?| ?Without Kidney Damage+ --------+ --------+ +| ?>90 ?| ?Stage one ?| ? Normal ?+ ---+ ---+ -------+| ?60-89 ?| ?Stage two ?| ? Decreased GFR ? + --+ --+ ------+| ?30-59 ?| ?Stage three ?| ? Stage three ? + --+ --+ ------+| ?15-29 ?| ?Stage four ? | ? Stage four ?+ ---+ ---+ -------+| ?<15 (or dialysis) ? ?| ?Stage five ? | ? Stage five ?+ ---+ ---+ -------+ *Each stage assumes the associated GFR level has been in effect for at least three months. ?Stages 1 to 5, with or without kidney disease, indicate chronic kidney disease. Notes: Determination of stages one and two (with eGFR >59mL/min/1.73 m2) requires estimation of kidney damage for at least three months as defined by structural or functional abnormalities of the kidney, manifested by either:Pathological abnormalities or Markers of kidney damage (including abnormalities in the composition of the blood or urine or abnormalities in imaging tests). Lab Interpretation Abnormal (test code = 31800-1) [facility] WITH [id number] 10:02:57 Test Item Value Reference Range Interpretation Comments WBC (test code = See_Comment [Automated 5190-2) message] The sy stem which generated this result transmitted reference range : 4.20 - 10.70 10*3/?L. The reference range was not used to interpret this result as normal/abnormal . RBC (test code = See_Comment L [Automated 279-8) message] The sy stem which generated this result transmitted reference range : 4.26 - 5.52 10*6/?L. The reference range was not used to interpret this result as normal/abnormal . HGB (test code = 8.2 g/dL 12.2-16.4 L 718-7) HCT (test code = 28.3 % 38.4-49.3 L 4544-3) MCV (test code = 95.3 fL 81.7-95.6 787-2) MCH (test code = 27.6 pg 26.1-32.7 785-6) MCHC (test code = 29.0 g/dL 31.2-35.0 L 786-4) RDW-SD (test code = 81.5 fL 38.5-51.6 H 31028-6) RDW-CV (test code = 24.2 % 12.1-15.4 H 788-0) PLT (test code = See_Comment H [Automated 777-3) message] The sy stem which generated this result transmitted reference range : 150 - 328 10*3/ ?L. The reference r delano was not used to interpret this result as normal/abnormal . MPV (test code = 10.5 fL 9.8-13.0 87026-4) NRBC/100 WBC (test See_Comment [Automat ed code = 2946490577) message] The system which generated this result transmitted reference range : 0.0 - 10.0 /100 WBCs. The refer ence range was not u sed to interpret th is result as normal/abnormal . NRBC x10^3 (test code <0.01 See_Comment [Auto mated = 9512413277) message] The s ystem which generated this result transmitted reference range : 10*3/?L. The reference range was not used to interpret this result as normal/abnormal . GRAN MAT (NEUT) % 71.5 % (test code = 770-8) IMM GRAN % (test code 0.50 % = 8231904109) LYMPH % (test code = 18.0 % 736-9) MONO % (test code = 8.1 % 5905-5) EOS % (test code = 1.5 % 713-8) BASO % (test code = 0.4 % 706-2) GRAN MAT x10^3(ANC) 5.63 10*3/uL 1.99-6.95 (test code = 2090418347) IMM GRAN x10^3 (test 0.04 10*3/uL 0.00-0.06 code = 9199440471) LYMPH x10^3 (test code 1.42 10*3/uL 1.09-3.23 = 731-0) MONO x10^3 (test code 0.64 10*3/uL 0.36-1.02 = 742-7) EOS x10^3 (test code = 0.12 10*3/uL 0.06-0.53 711-2) BASO x10^3 (test code 0.03 10*3/uL 0.01-0.09 = 704-7) Lab Interpretation Abnormal (test code = 07675-9) [facility] Whole [id number] 09:58:30 Test Item Value Reference Range Interpretation Comments LACTIC ACID (test code = 1.38 mmol/L 0.50-2.20 1298787470) Lab Interpretation (test code = Normal 27687-5) [facility] GLUCOSE (AUTOMATED)2020-07-12 09:42:19 Test Item Value Reference Range Interpretation Comments POCT GLU (test code = 1278248515) 98 mg/dL 70-110 Lab Interpretation (test code = Normal 27518-2) [facility] (for use with Heparin Drip)2020-07-12 05:04:59 Test Item Value Reference Range Interpretation Comments APTT Patient (test code See_Comment H [Au tomated message] = 3173-2) The system [employer] generated this result transmitted ref erence range: 26 - 36 Seconds. The reference range was not used to int erpret this result as normal/abnormal . Lab Interpretation (test Abnormal code = 31008-0) [facility] GLUCOSE (AUTOMATED)2020-07-12 04:19:42 Test Item Value Reference Range Interpretation Comments POCT GLU (test code = 4238216546) 162 mg/dL 70-110 H Lab Interpretation (test code = Abnormal 96821-9) [facility] GLUCOSE (AUTOMATED)2020-07-12 00:58:10 Test Item Value Reference Range Interpretation Comments POCT GLU (test code = 7437328743) 168 mg/dL 70-110 H Lab Interpretation (test code = Abnormal 21231-5) [facility] (NA, K, CL, CO2, GLUCOSE, BUN, CREATININE, CA)2020-07-11 23:38:29 Test Item Value Reference Range Interpretation Comments NA (test code = 142 mmol/L 135-145 2880418674) K (test code = 4.1 mmol/L 3.5-5.0 5858894721) CL (test code = 98 mmol/L 98-108 1997718604) CO2 TOTAL (test code = 37 mmol/L 23-31 H 9065879315) AGAP (test code = 2-16 4141245146) BUN (test code = 59 mg/dL 7-23 H 7958477263) GLUCOSE (test code = 158 mg/dL 70-110 H 1401034673) CREATININE (test code = 1.05 mg/dL 0.60-1.25 5163609773) CALCIUM (test code = 9.7 mg/dL 8.6-10.6 7448599857) eGFR (test code = mL/min/1.73m2 5335613559) MEG (test code = MEG) Association of Glomerular Filtration Rate (GFR) and Staging of Kidney Disease* + --+ --+ ------+| GFR (mL/min/1.73 m2) ?| With Kidney Damage ?| ?Without Kidney Damage+ --------+ --------+ +| ?>90 ?| ?Stage one ?| ? Normal ?+ ---+ ---+ -------+| ?60-89 ?| ?Stage two ?| ? Decreased GFR ? + --+ --+ ------+| ?30-59 ?| ?Stage three ?| ? Stage three ? + --+ --+ ------+| ?15-29 ?| ?Stage four ? | ? Stage four ?+ ---+ ---+ -------+| ?<15 (or dialysis) ? ?| ?Stage five ? | ? Stage five ?+ ---+ ---+ -------+ *Each stage assumes the associated GFR level has been in effect for at least three months. ?Stages 1 to 5, with or without kidney disease, indicate chronic kidney disease. Notes: Determination of stages one and two (with eGFR >59mL/min/1.73 m2) requires estimation of kidney damage for at least three months as defined by structural or functional abnormalities of the kidney, manifested by either:Pathological abnormalities or Markers of kidney damage (including abnormalities in the composition of the blood or urine or abnormalities in imaging tests). Lab Interpretation Abnormal (test code = 96089-7) [facility] THRM[facility] [id number] 22:51:45 Test Item Value Reference Range Interpretation Comments APTT Patient (test code See_Comment H [Au tomated message] = 3173-2) The system [employer] generated this result transmitted ref erence range: 26 - 36 Seconds. The reference range was not used to int erpret this result as normal/abnormal . Lab Interpretation (test Abnormal code = 88000-9) [facility] GLUCOSE (AUTOMATED)2020-07-11 21:11:20 Test Item Value Reference Range Interpretation Comments POCT GLU (test code = 5163890660) 175 mg/dL 70-110 H Lab Interpretation (test code = Abnormal 19919-4) [facility] GLUCOSE (AUTOMATED)2020-07-11 17:15:56 Test Item Value Reference Range Interpretation Comments POCT GLU (test code = 6758754568) 178 mg/dL 70-110 H Lab Interpretation (test code = Abnormal 33699-4) [facility] Arterial Blood Gas.2020-07-11 15:23:09 Test Item Value Reference Range Interpretation Comments PH (test code = 2) 7.35-7.45 H PCO2 (test code = See_Comment H [Automate d message] 4542288536) The system [employer] generated this result transmitted ref erence range: 35 - 45 mmHg. The reference r delano was not used to interpret this result as normal/abnor mal. PO2 (test code = See_Comment L [Automated message] 1416529994) The system [employer] generated this result transmitted ref erence range: 80 - 100 mmHg. The reference r delano was not used to interpret this result as normal/abnor mal. HCO3 (test code = See_Comment H [Automate d message] 8243590511) The system [employer] generated this result transmitted ref erence range: 22 - 26 mEq/L. The reference r delano was not used to interpret this result as normal/abnor mal. BE (test code = See_Comment H [Automated message] 8210832146) The system [employer] generated this result transmitted ref erence range: -3.0 - 3 .0 mEq/L. The refe rence range was not u sed to interpret this result as normal/abnor mal. Lab Interpretation (test Abnormal code = 17334-1) [facility] Center[facility])2020-07-11 13:17:11 Test Item Value Reference Range Interpretation Comments POCT GLU (test code = 0354329356) 199 mg/dL 70-110 H Lab Interpretation (test code = Abnormal 90778-8) [facility] WITH [id number] 10:57:28 Test Item Value Reference Range Interpretation Comments WBC (test code = See_Comment [Automated 6690-2) message] The sy stem which generated this result transmitted reference range : 4.20 - 10.70 10*3/?L. The reference range was not used to interpret this result as normal/abnormal . RBC (test code = See_Comment L [Automated 789-8) message] The sy stem which generated this result transmitted reference range : 4.26 - 5.52 10*6/?L. The reference range was not used to interpret this result as normal/abnormal . HGB (test code = 8.4 g/dL 12.2-16.4 L 718-7) HCT (test code = 28.7 % 38.4-49.3 L 4544-3) MCV (test code = 94.4 fL 81.7-95.6 787-2) MCH (test code = 27.6 pg 26.1-32.7 785-6) MCHC (test code = 29.3 g/dL 31.2-35.0 L 786-4) RDW-SD (test code = 81.4 fL 38.5-51.6 H 37474-5) RDW-CV (test code = 24.5 % 12.1-15.4 H 788-0) PLT (test code = See_Comment H [Automated 777-3) message] The sy stem which generated this result transmitted reference range : 150 - 328 10*3/ ?L. The reference r delano was not used to interpret this result as normal/abnormal . MPV (test code = 11.0 fL 9.8-13.0 09084-8) NRBC/100 WBC (test See_Comment [Automat ed code = 9302015490) message] The system which generated this result transmitted reference range : 0.0 - 10.0 /100 WBCs. The refer ence range was not u sed to interpret th is result as normal/abnormal . NRBC x10^3 (test code See_Comment [Auto mated = 0482315323) message] The s ystem which generated this result transmitted reference range : 10*3/?L. The reference range was not used to interpret this result as normal/abnormal . GRAN MAT (NEUT) % 69.6 % (test code = 770-8) IMM GRAN % (test code 1.10 % = 4810307110) LYMPH % (test code = 17.4 % 736-9) MONO % (test code = 8.4 % 5905-5) EOS % (test code = 3.1 % 713-8) BASO % (test code = 0.4 % 706-2) GRAN MAT x10^3(ANC) 5.80 10*3/uL 1.99-6.95 (test code = 8508363721) IMM GRAN x10^3 (test 0.09 10*3/uL 0.00-0.06 H code = 6091297167) LYMPH x10^3 (test code 1.45 10*3/uL 1.09-3.23 = 731-0) MONO x10^3 (test code 0.70 10*3/uL 0.36-1.02 = 742-7) EOS x10^3 (test code = 0.26 10*3/uL 0.06-0.53 711-2) BASO x10^3 (test code 0.03 10*3/uL 0.01-0.09 = 704-7) Lab Interpretation Abnormal (test code = 81787-8) [facility]2021-[facility]-08 10:55:28 Test Item Value Reference Range Interpretation Comments MAGNESIUM (test code = 1486260065) 2.7 mg/dL 1.7-2.4 H Lab Interpretation (test code = Abnormal 86018-5) [facility] (NA, K, CL, CO2, GLUCOSE, BUN, CREATININE, CA)2020-07-11 10:55:27 Test Item Value Reference Range Interpretation Comments NA (test code = 141 mmol/L 135-145 8738698141) K (test code = 3.9 mmol/L 3.5-5.0 3727813335) CL (test code = 98 mmol/L 98-108 0049776802) CO2 TOTAL (test code = 39 mmol/L 23-31 H 7155521887) AGAP (test code = 2-16 2755728170) BUN (test code = 60 mg/dL 7-23 H 8951769759) GLUCOSE (test code = 179 mg/dL 70-110 H 3430051995) CREATININE (test code = 1.01 mg/dL 0.60-1.25 6067340210) CALCIUM (test code = 9.8 mg/dL 8.6-10.6 0165207008) eGFR (test code = mL/min/1.73m2 6232376465) MEG (test code = MEG) Association of Glomerular Filtration Rate (GFR) and Staging of Kidney Disease* + --+ --+ ------+| GFR (mL/min/1.73 m2) ?| With Kidney Damage ?| ?Without Kidney Damage+ --------+ --------+ +| ?>90 ?| ?Stage one ?| ? Normal ?+ ---+ ---+ -------+| ?60-89 ?| ?Stage two ?| ? Decreased GFR ? + --+ --+ ------+| ?30-59 ?| ?Stage three ?| ? Stage three ? + --+ --+ ------+| ?15-29 ?| ?Stage four ? | ? Stage four ?+ ---+ ---+ -------+| ?<15 (or dialysis) ? ?| ?Stage five ? | ? Stage five ?+ ---+ ---+ -------+ *Each stage assumes the associated GFR level has been in effect for at least three months. ?Stages 1 to 5, with or without kidney disease, indicate chronic kidney disease. Notes: Determination of stages one and two (with eGFR >59mL/min/1.73 m2) requires estimation of kidney damage for at least three months as defined by structural or functional abnormalities of the kidney, manifested by either:Pathological abnormalities or Markers of kidney damage (including abnormalities in the composition of the blood or urine or abnormalities in imaging tests). Lab Interpretation Abnormal (test code = 27680-6) [facility] THRM[facility] [id number] 10:51:30 Test Item Value Reference Range Interpretation Comments APTT Patient (test code See_Comment H [Au tomated message] = 3173-2) The system [employer] generated this result transmitted ref erence range: 26 - 36 Seconds. The reference range was not used to int erpret this result as normal/abnormal . Lab Interpretation (test Abnormal code = 96054-4) [facility] CenterLaoric Acid Whole [id number] 10:38:32 Test Item Value Reference Range Interpretation Comments LACTIC ACID (test code = 1.60 mmol/L 0.50-2.20 2103479531) Lab Interpretation (test code = Normal 14473-2) [facility] GLUCOSE (AUTOMATED)2020-07-11 10:22:37 Test Item Value Reference Range Interpretation Comments POCT GLU (test code = 6509308899) 190 mg/dL 70-110 H Lab Interpretation (test code = Abnormal 04102-5) [facility] (for use with Heparin Drip)2020-07-11 05:19:19 Test Item Value Reference Range Interpretation Comments APTT Patient (test code See_Comment H [Au tomated message] = 3173-2) The system [employer] generated this result transmitted ref erence range: 26 - 36 Seconds. The reference range was not used to int erpret this result as normal/abnormal . Lab Interpretation (test Abnormal code = 94742-7) [facility] GLUCOSE (AUTOMATED)2020-07-11 04:38:37 Test Item Value Reference Range Interpretation Comments POCT GLU (test code = 3389681826) 200 mg/dL 70-110 H Lab Interpretation (test code = Abnormal 59725-4) [facility] GLUCOSE (AUTOMATED)2020-07-11 00:45:57 Test Item Value Reference Range Interpretation Comments POCT GLU (test code = 2320945408) 172 mg/dL 70-110 H Lab Interpretation (test code = Abnormal 16546-0) [facility] METABOLIC PANEL (NA, K, CL, CO2, GLUCOSE, BUN, CREATININE, CA)2020-07-10 23:49:03 Test Item Value Reference Range Interpretation Comments NA (test code = 140 mmol/L 135-145 0280927743) K (test code = 4.2 mmol/L 3.5-5.0 7054750304) CL (test code = 98 mmol/L 98-108 9975452207) CO2 TOTAL (test code = 38 mmol/L 23-31 H 4885733003) AGAP (test code = 2-16 8687566089) BUN (test code = 61 mg/dL 7-23 H 0806571045) GLUCOSE (test code = 173 mg/dL 70-110 H 4543888552) CREATININE (test code = 1.12 mg/dL 0.60-1.25 5656080898) CALCIUM (test code = 9.8 mg/dL 8.6-10.6 5668106098) eGFR (test code = mL/min/1.73m2 6992130624) MEG (test code = MEG) Association of Glomerular Filtration Rate (GFR) and Staging of Kidney Disease* + --+ --+ ------+| GFR (mL/min/1.73 m2) ?| With Kidney Damage ?| ?Without Kidney Damage+ --------+ --------+ +| ?>90 ?| ?Stage one ?| ? Normal ?+ ---+ ---+ -------+| ?60-89 ?| ?Stage two ?| ? Decreased GFR ? + --+ --+ ------+| ?30-59 ?| ?Stage three ?| ? Stage three ? + --+ --+ ------+| ?15-29 ?| ?Stage four ? | ? Stage four ?+ ---+ ---+ -------+| ?<15 (or dialysis) ? ?| ?Stage five ? | ? Stage five ?+ ---+ ---+ -------+ *Each stage assumes the associated GFR level has been in effect for at least three months. ?Stages 1 to 5, with or without kidney disease, indicate chronic kidney disease. Notes: Determination of stages one and two (with eGFR >59mL/min/1.73 m2) requires estimation of kidney damage for at least three months as defined by structural or functional abnormalities of the kidney, manifested by either:Pathological abnormalities or Markers of kidney damage (including abnormalities in the composition of the blood or urine or abnormalities in imaging tests). Lab Interpretation Abnormal (test code = 26951-5) [facility] (for use with Heparin Drip)2020-07-10 23:35:34 Test Item Value Reference Range Interpretation Comments APTT Patient (test code See_Comment H [Au tomated message] = 3173-2) The system [employer] generated this result transmitted ref erence range: 26 - 36 Seconds. The reference range was not used to int erpret this result as normal/abnormal . Lab Interpretation (test Abnormal code = 82973-1) [facility] CenterXR CHEST 1 [id number] 22:48:57 1. Worsening atelectasis or pneumonia in the left lower lobe. Questionablesmall left pleural effusion. 2. New vascular sheath projected over the right brachiocephalic vein with akink in the lower neck. The rest of the support apparatus is unchanged.. I, Tasneem Goetz MD., have reviewed this study and agree with theabove report.EXAM: XR CHEST 1 VW COMPARISON: XR CHEST 1 VW, 07/08/2020. CT chest, 07/06/2019. HISTORY: concern for MRSA VAP FINDINGS: The endotracheal tube overlies the upper to mid trachea. A feeding tubetraverses the GE junction with tip out of field of view inferiorly. Theright-sided PICC line overlies the mid SVC. A right vascular sheath kinkedin the lower neck, appears to terminate at the level of the rightbrachycephalic vein. Lungs: Worsening dense consolidation in the left lower lung with nosignificant associated elevation of the diaphragm. Mild partial atelectasisin the right infrahilar region. Mild blunting of the left costophrenicangle. Heart/Mediastinum: The cardiac silhouette is borderline enlarged,unchanged. Mild dilatation of the pulmonary arteries is again seen. Aj migue: No focal osseous abnormality. [facility], Radiant Results Inft User - 07/10/2020 5:50 PM CDTEXAM: XR CHEST 1 VWCOMPARISON: XR CHEST 1 VW, 07/08/2020. CT chest, 07/06/2019.HISTORY: concern for MRSA VAP FINDINGS:The endotracheal tube overlies the upper to mid trachea. A feeding tubetraverses the GE junction with tip out of field of view inferiorly. Theright-sided PICC line overlies the mid SVC. A right vascular sheath kinkedin the lower neck, appears to terminate at the level of the rightbrachycephalic vein.Lungs: Worsening dense consolidation in the left lower lung with nosignificant associated elevationof the diaphragm. Mild partial atelectasisin the right infrahilar region. Mild blunting of the left c ostophrenicangle.Heart/Mediastinum: The cardiac silhouette is borderline enlarged,unchanged. Mild dilatation of the pulmonary arteries is again seen.Bones: No focal osseous abnormality. IMPRESSION1. Worsening atelectasis or pneumonia in the left lower lobe. Questionablesmall left pleural effusion.2. New vascular sheath projected over the right brachiocephalic vein with akink in the lower neck. The rest of the support apparatus is unchanged..ITasneem MD., have reviewed this study and agree with theabove report.[facility] GLUCOSE (AUTOMATED)2020-07-10 21:38:45 Test Item Value Reference Range Interpretation Comments POCT GLU (test code = 7052683351) 214 mg/dL 70-110 H Lab Interpretation (test code = Abnormal 08746-6) [facility] (for use with Heparin Drip)2020-07-10 16:57:20 Test Item Value Reference Range Interpretation Comments APTT Patient (test code See_Comment H [Au tomated message] = 3173-2) The system [employer] generated this result transmitted ref erence range: 26 - 36 Seconds. The reference range was not used to int erpret this result as normal/abnormal . Lab Interpretation (test Abnormal code = 74859-2) [facility] (for use with Heparin Drip)2020-07-10 16:57:20 Test Item Value Reference Range Interpretation Comments APTT Patient (test code See_Comment H [Au tomated message] = 3173-2) The system [employer] generated this result transmitted ref erence range: 26 - 36 Seconds. The reference range was not used to int erpret this result as normal/abnormal . Lab Interpretation (test Abnormal code = 03290-2) [facility] GLUCOSE (AUTOMATED)2020-07-10 16:40:53 Test Item Value Reference Range Interpretation Comments POCT GLU (test code = 0859830721) 178 mg/dL 70-110 H Lab Interpretation (test code = Abnormal 59825-1) [facility] CenterPOT[facility] GLUCOSE (AUTOMATED)2020-07-10 16:40:53 Test Item Value Reference Range Interpretation Comments POCT GLU (test code = 7586906133) 178 mg/dL 70-110 H Lab Interpretation (test code = Abnormal 76085-1) [facility] CenterVancomycin Trough Level - Draw immediately prior to the NEXT dose, but, no more than 60 minutes before the NEXT dose. 2020-07-10 16:09:50 Test Item Value Reference Range Interpretation Comments VANCO TROUGH (test code 17.4 ug/mL 10.0-20.0 = 5670230068) MEG (test code = MEG) Toxic Range: ?>20 ug/mL 15-20 ug/mL is recommended for severe infection or when Vancomycin LIAM is greater than or equal to 2. Lab Interpretation (test Normal code = 55442-4) [facility] CenterVancomycin Trough Level - Draw immediately prior to the NEXT dose, but, no more than 60 minutes before the NEXT dose. 2020-07-10 16:09:50 Test Item Value Reference Range Interpretation Comments VANCO TROUGH (test code 17.4 ug/mL 10.0-20.0 = 2033834276) MEG (test code = MEG) Toxic Range: ?>20 ug/mL 15-20 ug/mL is recommended for severe infection or when Vancomycin LIAM is greater than or equal to 2. Lab Interpretation (test Normal code = 09901-5) [facility] [id number] 13:29:39 Test Item Value Reference Range Interpretation Comments SPUTUM CULTURE (test Scant (< 1+) growth code = 622-1) Respiratory leelee Gram stain (test code Occasional (Rare) = 664-3) Epithelial cells [facility] [id number] 13:29:39 Test Item Value Reference Range Interpretation Comments SPUTUM CULTURE (test Scant (< 1+) growth code = 622-1) Respiratory leelee Gram stain (test code Occasional (Rare) = 664-3) Epithelial cells [facility] [id number] 13:21:41 Test Item Value Reference Range Interpretation Comments URINE CULTURE (test No aerobic growth (< code = 630-4) 1000 CFU/mL) [facility]2021-04-07 13:21:41 Test Item Value Reference Range Interpretation Comments URINE CULTURE (test No aerobic growth (< code = 630-4) 1000 CFU/mL) [facility] GLU[facility]SE [facility]AUTOMATED)2020-07-10 12:42:10 Test Item Value Reference Range Interpretation Comments POCT GLU (test code = 5146333686) 168 mg/dL 70-110 H Lab Interpretation (test code = Abnormal 64222-9) [facility]2021-[facility]-07 10:30:40 Test Item Value Reference Range Interpretation Comments MAGNESIUM (test code = 4113639538) 2.9 mg/dL 1.7-2.4 H Lab Interpretation (test code = Abnormal 06517-7) [facility] METABOLIC PANEL (NA, K, CL, CO2, GLUCOSE, BUN, CREATININE, CA)2020-07-10 10:30:40 Test Item Value Reference Range Interpretation Comments NA (test code = 139 mmol/L 135-145 1935463723) K (test code = 3.4 mmol/L 3.5-5.0 L 2777523068) CL (test code = 96 mmol/L 98-108 L 3101709079) CO2 TOTAL (test code = 37 mmol/L 23-31 H 4960268048) AGAP (test code = 2-16 5666869352) BUN (test code = 63 mg/dL 7-23 H 2377109890) GLUCOSE (test code = 162 mg/dL 70-110 H 0738131831) CREATININE (test code = 1.00 mg/dL 0.60-1.25 1806279161) CALCIUM (test code = 9.7 mg/dL 8.6-10.6 2147083096) eGFR (test code = mL/min/1.73m2 7247924105) MEG (test code = MEG) Association of Glomerular Filtration Rate (GFR) and Staging of Kidney Disease* + --+ --+ ------+| GFR (mL/min/1.73 m2) ?| With Kidney Damage ?| ?Without Kidney Damage+ --------+ --------+ +| ?>90 ?| ?Stage one ?| ? Normal ?+ ---+ ---+ -------+| ?60-89 ?| ?Stage two ?| ? Decreased GFR ? + --+ --+ ------+| ?30-59 ?| ?Stage three ?| ? Stage three ? + --+ --+ ------+| ?15-29 ?| ?Stage four ? | ? Stage four ?+ ---+ ---+ -------+| ?<15 (or dialysis) ? ?| ?Stage five ? | ? Stage five ?+ ---+ ---+ -------+ *Each stage assumes the associated GFR level has been in effect for at least three months. ?Stages 1 to 5, with or without kidney disease, indicate chronic kidney disease. Notes: Determination of stages one and two (with eGFR >59mL/min/1.73 m2) requires estimation of kidney damage for at least three months as defined by structural or functional abnormalities of the kidney, manifested by either:Pathological abnormalities or Markers of kidney damage (including abnormalities in the composition of the blood or urine or abnormalities in imaging tests). Lab Interpretation Abnormal (test code = 78397-0) [facility]2021-[facility]-07 10:30:40 Test Item Value Reference Range Interpretation Comments MAGNESIUM (test code = 5070383432) 2.9 mg/dL 1.7-2.4 H Lab Interpretation (test code = Abnormal 71228-7) [facility] (NA, K, CL, CO2, GLUCOSE, BUN, CREATININE, CA)2020-07-10 10:30:40 Test Item Value Reference Range Interpretation Comments NA (test code = 139 mmol/L 135-145 9769851620) K (test code = 3.4 mmol/L 3.5-5.0 L 7367235968) CL (test code = 96 mmol/L 98-108 L 9717066857) CO2 TOTAL (test code = 37 mmol/L 23-31 H 3595470526) AGAP (test code = 2-16 2560616209) BUN (test code = 63 mg/dL 7-23 H 1125812014) GLUCOSE (test code = 162 mg/dL 70-110 H 5005955591) CREATININE (test code = 1.00 mg/dL 0.60-1.25 1254400119) CALCIUM (test code = 9.7 mg/dL 8.6-10.6 9003813214) eGFR (test code = mL/min/1.73m2 8481536280) MEG (test code = MEG) Association of Glomerular Filtration Rate (GFR) and Staging of Kidney Disease* + --+ --+ ------+| GFR (mL/min/1.73 m2) ?| With Kidney Damage ?| ?Without Kidney Damage+ --------+ --------+ +| ?>90 ?| ?Stage one ?| ? Normal ?+ ---+ ---+ -------+| ?60-89 ?| ?Stage two ?| ? Decreased GFR ? + --+ --+ ------+| ?30-59 ?| ?Stage three ?| ? Stage three ? + --+ --+ ------+| ?15-29 ?| ?Stage four ? | ? Stage four ?+ ---+ ---+ -------+| ?<15 (or dialysis) ? ?| ?Stage five ? | ? Stage five ?+ ---+ ---+ -------+ *Each stage assumes the associated GFR level has been in effect for at least three months. ?Stages 1 to 5, with or without kidney disease, indicate chronic kidney disease. Notes: Determination of stages one and two (with eGFR >59mL/min/1.73 m2) requires estimation of kidney damage for at least three months as defined by structural or functional abnormalities of the kidney, manifested by either:Pathological abnormalities or Markers of kidney damage (including abnormalities in the composition of the blood or urine or abnormalities in imaging tests). Lab Interpretation Abnormal (test code = 18823-9) [facility] WITH [id number] 10:00:13 Test Item Value Reference Range Interpretation Comments WBC (test code = See_Comment [Automated 6513-2) message] The sy stem which generated this result transmitted reference range : 4.20 - 10.70 10*3/?L. The reference range was not used to interpret this result as normal/abnormal . RBC (test code = See_Comment L [Automated 381-5) message] The sy stem which generated this result transmitted reference range : 4.26 - 5.52 10*6/?L. The reference range was not used to interpret this result as normal/abnormal . HGB (test code = 7.9 g/dL 12.2-16.4 L 718-7) HCT (test code = 27.7 % 38.4-49.3 L 4544-3) MCV (test code = 93.6 fL 81.7-95.6 787-2) MCH (test code = 26.7 pg 26.1-32.7 785-6) MCHC (test code = 28.5 g/dL 31.2-35.0 L 786-4) RDW-SD (test code = 79.6 fL 38.5-51.6 H 47817-8) RDW-CV (test code = 24.3 % 12.1-15.4 H 788-0) PLT (test code = See_Comment H [Automated 777-3) message] The sy stem which generated this result transmitted reference range : 150 - 328 10*3/ ?L. The reference r delano was not used to interpret this result as normal/abnormal . MPV (test code = 11.0 fL 9.8-13.0 62561-1) NRBC/100 WBC (test See_Comment [Automat ed code = 7145380144) message] The system which generated this result transmitted reference range : 0.0 - 10.0 /100 WBCs. The refer ence range was not u sed to interpret th is result as normal/abnormal . NRBC x10^3 (test code See_Comment [Auto mated = 5828495095) message] The s ystem which generated this result transmitted reference range : 10*3/?L. The reference range was not used to interpret this result as normal/abnormal . GRAN MAT (NEUT) % 72.6 % (test code = 770-8) IMM GRAN % (test code 1.20 % = 1679912775) LYMPH % (test code = 14.7 % 736-9) MONO % (test code = 7.1 % 5905-5) EOS % (test code = 3.9 % 713-8) BASO % (test code = 0.5 % 706-2) GRAN MAT x10^3(ANC) 6.41 10*3/uL 1.99-6.95 (test code = 6587284827) IMM GRAN x10^3 (test 0.11 10*3/uL 0.00-0.06 H code = 9804589940) LYMPH x10^3 (test code 1.30 10*3/uL 1.09-3.23 = 731-0) MONO x10^3 (test code 0.63 10*3/uL 0.36-1.02 = 742-7) EOS x10^3 (test code = 0.34 10*3/uL 0.06-0.53 711-2) BASO x10^3 (test code 0.04 10*3/uL 0.01-0.09 = 704-7) Lab Interpretation Abnormal (test code = 02530-9) [facility] WITH [id number] 10:00:13 Test Item Value Reference Range Interpretation Comments WBC (test code = See_Comment [Automated 6690-2) message] The sy stem which generated this result transmitted reference range : 4.20 - 10.70 10*3/?L. The reference range was not used to interpret this result as normal/abnormal . RBC (test code = See_Comment L [Automated 789-8) message] The sy stem which generated this result transmitted reference range : 4.26 - 5.52 10*6/?L. The reference range was not used to interpret this result as normal/abnormal . HGB (test code = 7.9 g/dL 12.2-16.4 L 718-7) HCT (test code = 27.7 % 38.4-49.3 L 4544-3) MCV (test code = 93.6 fL 81.7-95.6 787-2) MCH (test code = 26.7 pg 26.1-32.7 785-6) MCHC (test code = 28.5 g/dL 31.2-35.0 L 786-4) RDW-SD (test code = 79.6 fL 38.5-51.6 H 52421-3) RDW-CV (test code = 24.3 % 12.1-15.4 H 788-0) PLT (test code = See_Comment H [Automated 777-3) message] The sy stem which generated this result transmitted reference range : 150 - 328 10*3/ ?L. The reference r delano was not used to interpret this result as normal/abnormal . MPV (test code = 11.0 fL 9.8-13.0 87962-9) NRBC/100 WBC (test See_Comment [Automat ed code = 2948315873) message] The system which generated this result transmitted reference range : 0.0 - 10.0 /100 WBCs. The refer ence range was not u sed to interpret th is result as normal/abnormal . NRBC x10^3 (test code See_Comment [Auto mated = 3383863311) message] The s ystem which generated this result transmitted reference range : 10*3/?L. The reference range was not used to interpret this result as normal/abnormal . GRAN MAT (NEUT) % 72.6 % (test code = 770-8) IMM GRAN % (test code 1.20 % = 6764232300) LYMPH % (test code = 14.7 % 736-9) MONO % (test code = 7.1 % 5905-5) EOS % (test code = 3.9 % 713-8) BASO % (test code = 0.5 % 706-2) GRAN MAT x10^3(ANC) 6.41 10*3/uL 1.99-6.95 (test code = 8302232527) IMM GRAN x10^3 (test 0.11 10*3/uL 0.00-0.06 H code = 9275896203) LYMPH x10^3 (test code 1.30 10*3/uL 1.09-3.23 = 731-0) MONO x10^3 (test code 0.63 10*3/uL 0.36-1.02 = 742-7) EOS x10^3 (test code = 0.34 10*3/uL 0.06-0.53 711-2) BASO x10^3 (test code 0.04 10*3/uL 0.01-0.09 = 704-7) Lab Interpretation Abnormal (test code = 58852-8) [facility] Drip[facility]2020-07-10 09:45:28 Test Item Value Reference Range Interpretation Comments APTT Patient (test code See_Comment H [Au tomated message] = 3173-2) The system [employer] generated this result transmitted ref erence range: 26 - 36 Seconds. The reference range was not used to int erpret this result as normal/abnormal . Lab Interpretation (test Abnormal code = 22873-2) [facility] CenterL[facility] Acid Whole [id number] 09:33:48 Test Item Value Reference Range Interpretation Comments LACTIC ACID (test code = 1.45 mmol/L 0.50-2.20 4681228837) Lab Interpretation (test code = Normal 01732-8) [facility] GLUCOSE (AUTOMATED)2020-07-10 09:33:48 Test Item Value Reference Range Interpretation Comments POCT GLU (test code = 2642841275) 173 mg/dL 70-110 H Lab Interpretation (test code = Abnormal 07382-3) [facility] CenterL[facility] Whole [id number] 09:33:48 Test Item Value Reference Range Interpretation Comments LACTIC ACID (test code = 1.45 mmol/L 0.50-2.20 5330885991) Lab Interpretation (test code = Normal 38148-9) [facility] GLUCOSE (AUTOMATED)2020-07-10 05:10:06 Test Item Value Reference Range Interpretation Comments POCT GLU (test code = 1162791347) 151 mg/dL 70-110 H Lab Interpretation (test code = Abnormal 42348-4) [facility] COVID [id number] 03:45:03COVID DMT InterpretationInterpretation/Recommendations:Molecular NAAT Tests for Active Infection with the SARS-CoV-2 Virus:The patient has currently tested negative for the SARS-CoV-2 virus that causesCOVID-19 illness. This most likely indicates that the patient does not have an active infection withthe SARS-CoV-2 virus. However, infection is not completely ruled out as the false negative rate for molecular NAAT testing using a nasopharyngeal sample can be up to 30%, mostly dependent on the timingof sample collection in relation to illness onset and any deficiencies in sampling techniques. If the patient has symptoms concerning for COVID-19 illness, a repeat NAAT test (PCR, Rapid ID Now, etc.) should be performed, at which time the SARS-CoV-2 virus - if present - may have reached a detectable viral load (usually peaking by the end of the first week of symptoms). Tests for IgM and/or IgG Antibodies to the SARS-CoV-2 Virus:If the patient develops COVID-19 illness in the future, testing for IgMand IgG antibodies approximately 3 weeks after illness onset will likely indicate if the patient hasproduced antibodies to the SARS-CoV-2 virus. However, some patients may take longer to develop detectable antibodies, while some patients who were infected with SARS-CoV-2 may never develop antibodies.While antibodies to SARS-CoV-2 may provide some degree of immunity, at this time the strength and duration of the antibody response is unknown. Interpretation Result Comments:These interpretation comments are based upon all COVID-19 testing the patient has had at [facility], including molecular NAAT testing (more commonly known as PCR testing and Rapid ID Now testing) and antibody testing. It does not take into account any testing that a patient has had outside of the [facility] medical record. [facility] LABORATORY SERVICESCOVID ResultsSARS-Co V-2 NAAT (no units) ? ? Date ? Value ? 06/28/2020 ? Not Detected ? ? ? 06/19/2020 ? Not Detected ? SARS-CoV-2 Rapid ID NOW (no units) ? ?Date ? Value ? 07/08/2020 ? Not Detected ? ? ? 06/19/2020 ? Not Detected ? [facility]LAB ONLY COVID [id number] 03:45:03COVID DMT InterpretationInterpretation/Recommendations:Molecular NAAT Tests for Active Infection with the SARS-CoV-2 Virus:The patient has currently tested negative for the SARS-CoV-2 virus that causesCOVID-19 illness. This most likely indicates that the patient does not have an active infection withthe SARS-CoV-2 virus. However, infection is not completely ruled out as the false negative rate for m olecular NAAT testing using a nasopharyngeal sample can be up to 30%, mostly dependent on the timingof sample collection in relation to illness onset and any deficiencies in sampling techniques. If the patient has symptoms concerning for COVID-19 illness, a repeat NAAT test (PCR, Rapid ID Now, etc.) should be performed, at which time the SARS-CoV-2 virus - if present - may have reached a detectable viral load (usually peaking by the end of the first week of symptoms). Tests for IgM and/or IgG Antibodies to the SARS-CoV-2 Virus:If the patient develops COVID-19 illness in the future, testing for IgMand IgG antibodies approximately 3 weeks after illness onset will likely indicate if the patient hasproduced antibodies to the SARS-CoV-2 virus. However, some patients may take longer to develop detectable antibodies, while some patients who were infected with SARS-CoV-2 may never develop antibodies.While antibodies to SARS-CoV-2 may provide some degree of immunity, at this time the strength and duration of the antibody response is unknown. Interpretation Result Comments:These interpretation comments are based upon all COVID-19 testing the patient has had at [facility], including molecular NAAT testing (more commonly known as PCRtesting and Rapid ID Now testing) and antibody testing. It does not take into account any testing that a patient has had outside of the [facility] medical record. [facility] LABORATORY SERVICESCOVID AdiftrwOHCL-MwT-3 NAAT (no units) ? ? Date ? Value ? 06/28/2020 ? Not Detected ? ? ? 06/19/2020 ? Not Detected ? SARS-CoV-2 Rapid ID NOW (no units) ? ? Date ? Value ? 07/08/2020 ? Not Detected ? ? ? 06/19/2020 ? Not Detected ? [facility] SERVICESUnPal[facility] CenterPOCT [facility]SE (AUTOMATED)2020-07-10 00:42:48 Test Item Value Reference Range Interpretation Comments POCT GLU (test code = 9550647891) 169 mg/dL 70-110 H Lab Interpretation (test code = Abnormal 43748-3) [facility] CenterACTIVATED PARTIAL THRMPLAS [id number] 23:48:15 Test Item Value Reference Range Interpretation Comments APTT Patient (test code = See_Comment [ Automated message] 3173-2) The system [employer] generated this result transmitted ref erence range: 26 - 36 Seconds. The re ference range was not u sed to interpret this result as normal/abnor mal. Lab Interpretation (test Normal code = 39409-2) [facility] CenterACTIVATED PARTIAL THRMPLAS [id number] 21:51:35 Test Item Value Reference Range Interpretation Comments APTT Patient (test code See_Comment H [Au tomated message] = 3173-2) The system [employer] generated this result transmitted ref erence range: 26 - 36 Seconds. The reference range was not used to int erpret this result as normal/abnormal . Lab Interpretation (test Abnormal code = 48931-8) [facility] CenterBASIC METABOLIC PANEL (NA, K, CL, CO2, GLUCOSE, BUN, CREATININE, CA)2020-07-09 21:33:34 Test Item Value Reference Range Interpretation Comments NA (test code = 138 mmol/L 135-145 1485067866) K (test code = 3.8 mmol/L 3.5-5.0 2345932203) CL (test code = 93 mmol/L 98-108 L 7307686584) CO2 TOTAL (test code = 38 mmol/L 23-31 H 8509707215) AGAP (test code = 2-16 4913583456) BUN (test code = 70 mg/dL 7-23 H 5693954783) GLUCOSE (test code = 141 mg/dL 70-110 H 1075642816) CREATININE (test code = 0.93 mg/dL 0.60-1.25 9882032579) CALCIUM (test code = 9.3 mg/dL 8.6-10.6 5503017617) eGFR (test code = mL/min/1.73m2 1228942281) MEG (test code = MEG) Association of Glomerular Filtration Rate (GFR) and Staging of Kidney Disease* + --+ --+ ------+| GFR (mL/min/1.73 m2) ?| With Kidney Damage ?| ?Without Kidney Damage+ --------+ --------+ +| ?>90 ?| ?Stage one ?| ? Normal ?+ ---+ ---+ -------+| ?60-89 ?| ?Stage two ?| ? Decreased GFR ? + --+ --+ ------+| ?30-59 ?| ?Stage three ?| ? Stage three ? + --+ --+ ------+| ?15-29 ?| ?Stage four ? | ? Stage four ?+ ---+ ---+ -------+| ?<15 (or dialysis) ? ?| ?Stage five ? | ? Stage five ?+ ---+ ---+ -------+ *Each stage assumes the associated GFR level has been in effect for at least three months. ?Stages 1 to 5, with or without kidney disease, indicate chronic kidney disease. Notes: Determination of stages one and two (with eGFR >59mL/min/1.73 m2) requires estimation of kidney damage for at least three months as defined by structural or functional abnormalities of the kidney, manifested by either:Pathological abnormalities or Markers of kidney damage (including abnormalities in the composition of the blood or urine or abnormalities in imaging tests). Lab Interpretation Abnormal (test code = 87525-5) [facility] GLUCOSE (AUTOMATED)2020-07-09 21:31:22 Test Item Value Reference Range Interpretation Comments POCT GLU (test code = 2592299103) 144 mg/dL 70-110 H Lab Interpretation (test code = Abnormal 30093-0) [facility] ACT LOW [id number] 18:26:58 Test Item Value Reference Range Interpretation Comments ACTLR (test code = See_Comment [Automat ed message] 0861541041) The system [employer] generated this result transmitted ref erence range: 89 - 169 Seconds. The re ference range was not u sed to interpret this result as normal/abnor mal. Lab Interpretation (test Normal code = 14716-3) [facility] ACT LOW [id number] 18:26:58 Test Item Value Reference Range Interpretation Comments ACTLR (test code = See_Comment H [Automat ed message] 3778845786) The system [employer] generated this result transmitted ref erence range: 89 - 169 Seconds. The reference range was not used to int erpret this result as normal/abnormal . Lab Interpretation (test Abnormal code = 27663-2) [facility] ACT LOW [id number] 18:26:58 Test Item Value Reference Range Interpretation Comments ACTLR (test code = See_Comment H [Automat ed message] 6174924977) The system [employer] generated this result transmitted ref erence range: 89 - 169 Seconds. The reference range was not used to int erpret this result as normal/abnormal . Lab Interpretation (test Abnormal code = 92918-4) [facility] ACT LOW [id number] 18:26:58 Test Item Value Reference Range Interpretation Comments ACTLR (test code = See_Comment H [Automat ed message] 5397803450) The system [employer] generated this result transmitted ref erence range: 89 - 169 Seconds. The reference range was not used to int erpret this result as normal/abnormal . Lab Interpretation (test Abnormal code = 67082-8) [facility] GLUCOSE (AUTOMATED)2020-07-09 14:01:58 Test Item Value Reference Range Interpretation Comments POCT GLU (test code = 4174444620) 147 mg/dL 70-110 H Lab Interpretation (test code = Abnormal 25718-9) [facility] METABOLIC PANEL (NA, K, CL, CO2, GLUCOSE, BUN, CREATININE, CA)2020-07-09 09:53:37 Test Item Value Reference Range Interpretation Comments NA (test code = 139 mmol/L 135-145 9730092459) K (test code = 3.7 mmol/L 3.5-5.0 9760695030) CL (test code = 92 mmol/L 98-108 L 5869885822) CO2 TOTAL (test code = 35 mmol/L 23-31 H 0610139094) AGAP (test code = 2-16 4261601360) BUN (test code = 79 mg/dL 7-23 H 1643870942) GLUCOSE (test code = 146 mg/dL 70-110 H 3070231192) CREATININE (test code = 1.07 mg/dL 0.60-1.25 3717680720) CALCIUM (test code = 9.3 mg/dL 8.6-10.6 0881558341) eGFR (test code = mL/min/1.73m2 0274682423) MEG (test code = MEG) Association of Glomerular Filtration Rate (GFR) and Staging of Kidney Disease* + --+ --+ ------+| GFR (mL/min/1.73 m2) ?| With Kidney Damage ?| ?Without Kidney Damage+ --------+ --------+ +| ?>90 ?| ?Stage one ?| ? Normal ?+ ---+ ---+ -------+| ?60-89 ?| ?Stage two ?| ? Decreased GFR ? + --+ --+ ------+| ?30-59 ?| ?Stage three ?| ? Stage three ? + --+ --+ ------+| ?15-29 ?| ?Stage four ? | ? Stage four ?+ ---+ ---+ -------+| ?<15 (or dialysis) ? ?| ?Stage five ? | ? Stage five ?+ ---+ ---+ -------+ *Each stage assumes the associated GFR level has been in effect for at least three months. ?Stages 1 to 5, with or without kidney disease, indicate chronic kidney disease. Notes: Determination of stages one and two (with eGFR >59mL/min/1.73 m2) requires estimation of kidney damage for at least three months as defined by structural or functional abnormalities of the kidney, manifested by either:Pathological abnormalities or Markers of kidney damage (including abnormalities in the composition of the blood or urine or abnormalities in imaging tests). Lab Interpretation Abnormal (test code = 51388-1) [facility] CenterMAGNESIUM2021-04-06 09:44:52 Test Item Value Reference Range Interpretation Comments MAGNESIUM (test code = 4483383381) 2.9 mg/dL 1.7-2.4 H Lab Interpretation (test code = Abnormal 39947-9) [facility] WITH [id number] 09:18:32 Test Item Value Reference Range Interpretation Comments WBC (test code = See_Comment [Automated 6690-2) message] The sy stem which generated this result transmitted reference range : 4.20 - 10.70 10*3/?L. The reference range was not used to interpret this result as normal/abnormal . RBC (test code = See_Comment L [Automated 789-8) message] The sy stem which generated this result transmitted reference range : 4.26 - 5.52 10*6/?L. The reference range was not used to interpret this result as normal/abnormal . HGB (test code = 7.7 g/dL 12.2-16.4 L 718-7) HCT (test code = 26.8 % 38.4-49.3 L 4544-3) MCV (test code = 91.2 fL 81.7-95.6 787-2) MCH (test code = 26.2 pg 26.1-32.7 785-6) MCHC (test code = 28.7 g/dL 31.2-35.0 L 786-4) RDW-SD (test code = 73.2 fL 38.5-51.6 H 77386-6) RDW-CV (test code = 23.8 % 12.1-15.4 H 788-0) PLT (test code = See_Comment H [Automated 777-3) message] The sy stem which generated this result transmitted reference range : 150 - 328 10*3/ ?L. The reference r delano was not used to interpret this result as normal/abnormal . MPV (test code = 11.1 fL 9.8-13.0 10054-0) NRBC/100 WBC (test See_Comment [Automat ed code = 2710949607) message] The system which generated this result transmitted reference range : 0.0 - 10.0 /100 WBCs. The refer ence range was not u sed to interpret th is result as normal/abnormal . NRBC x10^3 (test code See_Comment [Auto mated = 2931767267) message] The s ystem which generated this result transmitted reference range : 10*3/?L. The reference range was not used to interpret this result as normal/abnormal . GRAN MAT (NEUT) % 70.4 % (test code = 770-8) IMM GRAN % (test code 1.30 % = 6190494518) LYMPH % (test code = 17.7 % 736-9) MONO % (test code = 6.2 % 5905-5) EOS % (test code = 4.0 % 713-8) BASO % (test code = 0.4 % 706-2) GRAN MAT x10^3(ANC) 6.66 10*3/uL 1.99-6.95 (test code = 2619805971) IMM GRAN x10^3 (test 0.12 10*3/uL 0.00-0.06 H code = 8451743111) LYMPH x10^3 (test code 1.68 10*3/uL 1.09-3.23 = 731-0) MONO x10^3 (test code 0.59 10*3/uL 0.36-1.02 = 742-7) EOS x10^3 (test code = 0.38 10*3/uL 0.06-0.53 711-2) BASO x10^3 (test code 0.04 10*3/uL 0.01-0.09 = 704-7) Lab Interpretation Abnormal (test code = 60114-0) [facility] CenterLaoric Acid Whole [id number] 09:16:06 Test Item Value Reference Range Interpretation Comments LACTIC ACID (test code = 1.05 mmol/L 0.50-2.20 7803920174) Lab Interpretation (test code = Normal 71161-6) [facility] CenterPOT[facility] GLUCOSE (AUTOMATED)2020-07-09 09:09:53 Test Item Value Reference Range Interpretation Comments POCT GLU (test code = 9367746163) 152 mg/dL 70-110 H Lab Interpretation (test code = Abnormal 48210-0) [facility] CenteraPTT (for use with Heparin Drip)2020-07-09 05:29:38 Test Item Value Reference Range Interpretation Comments APTT Patient (test code See_Comment H [Au tomated message] = 1433-2) The system [employer] generated this result transmitted ref erence range: 26 - 36 Seconds. The reference range was not used to int erpret this result as normal/abnormal . Lab Interpretation (test Abnormal code = 12506-5) [facility] CenterPO[facility]AUT[facility]ATED)2020-07-09 05:11:15 Test Item Value Reference Range Interpretation Comments POCT GLU (test code = 6172899032) 182 mg/dL 70-110 H Lab Interpretation (test code = Abnormal 41961-7) [facility] CenterHEPATIC FUNCTION PANEL (42756) (ALB,T.PRO,BILI T,BU/BC,ALT,AST,ALK PHOS)2020-07-09 03:35:56 Test Item Value Reference Range Interpretation Comments TOTAL BILI (test code = 6230245562) 0.9 mg/dL 0.1-1.1 BILI UNCON (test code = 1422985669) 0.4 mg/dL 0.1-1.1 BILI CONJ (test code = 5686908419) 0.0 mg/dL 0.0-0.3 T PROTEIN (test code = 9224128464) 8.0 g/dL 6.3-8.2 ALBUMIN (test code = 3155656588) 3.6 g/dL 3.5-5.0 ALK PHOS (test code = 9432363512) 327 U/L 34-122 H ALTv (test code = 1742-6) 52 U/L 5-50 H AST(SGOT) (test code = 9809159256) 80 U/L 13-40 H Lab Interpretation (test code = Abnormal 53749-3) [facility] CenterHEPAT[facility] FUNCTION PANEL (77246) (ALB,T.PRO,BILI T,BU/BC,ALT,AST,ALK PHOS)2020-07-09 03:35:56 Test Item Value Reference Range Interpretation Comments TOTAL BILI (test code = 8787819408) 0.9 mg/dL 0.1-1.1 BILI UNCON (test code = 2295795107) 0.4 mg/dL 0.1-1.1 BILI CONJ (test code = 3953837551) 0.0 mg/dL 0.0-0.3 T PROTEIN (test code = 0568183650) 8.0 g/dL 6.3-8.2 ALBUMIN (test code = 4833089721) 3.6 g/dL 3.5-5.0 ALK PHOS (test code = 8723547164) 327 U/L 34-122 H ALTv (test code = 1742-6) 52 U/L 5-50 H AST(SGOT) (test code = 9570256133) 80 U/L 13-40 H Lab Interpretation (test code = Abnormal 38890-3) [facility] CenterURINALYSIS2021-04-06 01:28:49 Test Item Value Reference Range Interpretation Comments APPEARANCE (test code = Hazy Clear A 5003366292) COLOR (test code = Yellow Yellow 5480457726) PH (test code = 4.8-8.0 6609944461) SP GRAVITY (test code = 1.003-1.030 5699395213) GLU U QUAL (test code = Normal Normal 7063462857) BLOOD (test code = 3+ Negative A 6075698531) KETONES (test code = Negative Negative 7911784274) PROTEIN (test code = 30 mg/dL Negative A 2887-8) UROBILIN (test code = Normal Normal 8468027396) BILIRUBIN (test code = Negative Negative 4722416226) NITRITE (test code = Negative Negative 1920765185) LEUK BARTOLO (test code = Negative Negative 0726504642) RBC/HPF (test code = >182 See_Comment H [Autom ated message] 4022050947) The system [employer] generated this result transmitted ref erence range: 0 - 3 HP F. The reference range was not used to int erpret this result as normal/abnormal . WBC/HPF (test code = See_Comment H [Autom ated message] 9233855963) The system [employer] generated this result transmitted ref erence range: 0 - 5 HP F. The reference range was not used to int erpret this result as normal/abnormal . BACTERIA (test code = Negative Negative 7516978069) AMORPHOUS (test code = Rare Rare HPF 0894814556) SQ EPITH (test code = <1 See_Comment [Auto mated message] 8820759714) The system [employer] generated this result transmitted ref erence range: <=2 HPF. The reference range was not used to int erpret this result as normal/abnormal . Lab Interpretation (test Abnormal code = 47218-3) [facility] 01:28:49 Test Item Value Reference Range Interpretation Comments APPEARANCE (test code = Hazy Clear A 8993488840) COLOR (test code = Yellow Yellow 8058271290) PH (test code = 4.8-8.0 7929275886) SP GRAVITY (test code = 1.003-1.030 8119626729) GLU U QUAL (test code = Normal Normal 0252283318) BLOOD (test code = 3+ Negative A 4347335938) KETONES (test code = Negative Negative 1037140433) PROTEIN (test code = 30 mg/dL Negative A 2887-8) UROBILIN (test code = Normal Normal 4997964005) BILIRUBIN (test code = Negative Negative 5788256474) NITRITE (test code = Negative Negative 3873573598) LEUK BARTOLO (test code = Negative Negative 6515896026) RBC/HPF (test code = >182 See_Comment H [Autom ated message] 2979267110) The system [employer] generated this result transmitted ref erence range: 0 - 3 HP F. The reference range was not used to int erpret this result as normal/abnormal . WBC/HPF (test code = See_Comment H [Autom ated message] 4189776532) The system [employer] generated this result transmitted ref erence range: 0 - 5 HP F. The reference range was not used to int erpret this result as normal/abnormal . BACTERIA (test code = Negative Negative 8480434058) AMORPHOUS (test code = Rare Rare HPF 3809554962) SQ EPITH (test code = <1 See_Comment [Auto mated message] 9248931721) The system [employer] generated this result transmitted ref erence range: <=2 HPF. The reference range was not used to int erpret this result as normal/abnormal . Lab Interpretation (test Abnormal code = 84970-1) [facility] GLUCOSE (AUTOMATED)2020-07-09 01:05:28 Test Item Value Reference Range Interpretation Comments POCT GLU (test code = 8180271629) 170 mg/dL 70-110 H Lab Interpretation (test code = Abnormal 39029-0) [facility] METABOLIC PANEL (NA, K, CL, CO2, GLUCOSE, BUN, CREATININE, CA)2020-07-08 22:00:54 Test Item Value Reference Range Interpretation Comments NA (test code = 139 mmol/L 135-145 8002839955) K (test code = 4.7 mmol/L 3.5-5.0 4495481898) CL (test code = 93 mmol/L 98-108 L 8129774444) CO2 TOTAL (test code = 35 mmol/L 23-31 H 0910667568) AGAP (test code = 2-16 7081961027) BUN (test code = 82 mg/dL 7-23 H 7243136547) GLUCOSE (test code = 167 mg/dL 70-110 H 0725339480) CREATININE (test code = 1.13 mg/dL 0.60-1.25 5203482086) CALCIUM (test code = 9.5 mg/dL 8.6-10.6 7137320426) eGFR (test code = mL/min/1.73m2 0561211650) MEG (test code = MEG) Association of Glomerular Filtration Rate (GFR) and Staging of Kidney Disease* + --+ --+ ------+| GFR (mL/min/1.73 m2) ?| With Kidney Damage ?| ?Without Kidney Damage+ --------+ --------+ +| ?>90 ?| ?Stage one ?| ? Normal ?+ ---+ ---+ -------+| ?60-89 ?| ?Stage two ?| ? Decreased GFR ? + --+ --+ ------+| ?30-59 ?| ?Stage three ?| ? Stage three ? + --+ --+ ------+| ?15-29 ?| ?Stage four ? | ? Stage four ?+ ---+ ---+ -------+| ?<15 (or dialysis) ? ?| ?Stage five ? | ? Stage five ?+ ---+ ---+ -------+ *Each stage assumes the associated GFR level has been in effect for at least three months. ?Stages 1 to 5, with or without kidney disease, indicate chronic kidney disease. Notes: Determination of stages one and two (with eGFR >59mL/min/1.73 m2) requires estimation of kidney damage for at least three months as defined by structural or functional abnormalities of the kidney, manifested by either:Pathological abnormalities or Markers of kidney damage (including abnormalities in the composition of the blood or urine or abnormalities in imaging tests). Lab Interpretation Abnormal (test code = 75261-1) [facility]2020-07-08 21:53:44 Test Item Value Reference Range Interpretation Comments POCT GLU (test code = 0457445144) 166 mg/dL 70-110 H Lab Interpretation (test code = Abnormal 88226-7) [facility]2020-07-08 21:22:24 Test Item Value Reference Range Interpretation Comments SARS-CoV-2 Rapid ID NOW Not Detected Not Detected (test code = 16722-5) MEG (test code = MEG) ID NOW COVID-19 Assay is an isothermal nucleic acid amplification test intended for the qualitative detection of nucleic acid from SARS-CoV-2 viral RNA in nasopharyngeal (DOCTORATE OF CHIROPRACTIC) specimens. It is used under Emergency Use Authorization (EUA) by FDA. The limit of detection (LOD) of the assay is 125 Genome Equivalents/mL. A positive result is indicative of the presence of SARS-CoV-2 RNA. ?Clinical correlation with patient history and other diagnostic information is necessary to determine patient infection status. A negative (Not Detected) result does not preclude SARS-CoV-2 infection. In patients with clinical symptoms and other tests that are consistent with SARS-CoV-2 infection, negative results should be treated as presumptive negative and a new specimen should be tested with alternative PCR molecular test. Invalid: Please collect a new specimen for repeat patient testing if clinically indicated. Lab Interpretation Normal (test code = 56740-9) [facility]08 21:22:24 Test Item Value Reference Range Interpretation Comments SARS-CoV-2 Rapid ID NOW Not Detected Not Detected (test code = 53766-5) MEG (test code = MEG) ID NOW COVID-19 Assay is an isothermal nucleic acid amplification test intended for the qualitative detection of nucleic acid from SARS-CoV-2 viral RNA in nasopharyngeal (DOCTORATE OF CHIROPRACTIC) specimens. It is used under Emergency Use Authorization (EUA) by FDA. The limit of detection (LOD) of the assay is 125 Genome Equivalents/mL. A positive result is indicative of the presence of SARS-CoV-2 RNA. ?Clinical correlation with patient history and other diagnostic information is necessary to determine patient infection status. A negative (Not Detected) result does not preclude SARS-CoV-2 infection. In patients with clinical symptoms and other tests that are consistent with SARS-CoV-2 infection, negative results should be treated as presumptive negative and a new specimen should be tested with alternative PCR molecular test. Invalid: Please collect a new specimen for repeat patient testing if clinically indicated. Lab Interpretation Normal (test code = 27129-9) [facility] GLUCOSE (AUTOMATED)2020-07-08 19:32:29 Test Item Value Reference Range Interpretation Comments POCT GLU (test code = 1813489681) 168 mg/dL 70-110 H Lab Interpretation (test code = Abnormal 05305-9) [facility]for use with Heparin Drip)2020-07-08 17:29:25 Test Item Value Reference Range Interpretation Comments APTT Patient (test code See_Comment H [Au tomated message] = 3173-2) The system [employer] generated this result transmitted ref erence range: 26 - 36 Seconds. The reference range was not used to int erpret this result as normal/abnormal . Lab Interpretation (test Abnormal code = 97785-4) [facility] GLUCOSE (AUTOMATED)2020-07-08 17:14:07 Test Item Value Reference Range Interpretation Comments POCT GLU (test code = 9944283940) 187 mg/dL 70-110 H Lab Interpretation (test code = Abnormal 67322-4) [facility]XR [facility] 1 [id number] 16:48:03Impression: 1. Improving bilateral pleural effusions. Persistent medial basilaratelectasis, left greater than right. No definite edema at this time.2. Findings suspicious for pulmonary hypertension, again noted. ITasneem MD., have reviewed this study and agree with theabove report.Exam: XR CHEST 1 VW History: volume overload Technique: AP radiograph of the chest was obtained. Comparison: CT chest, 07/05/2020, plain radiographs of the chest, 07/04/2020. Findings: The ETT overlies the upper to mid trachea. The feeding tube courses intothe abdomen, tip not included. Right PICC overlying the mid SVC. Improved hazy opacities in the lower lungs. Persistent moderate denseconsolidation in the medial left lung base. Borderline heart size with dilatation of the pulmonary arteries.Atherosclerotic calcifications of the aorta. Thoracic spondylosis. [facility], Radiant Results Inft User - 07/08/2020 12:07 PM CDTExam: XR CHEST 1 VWHistory: volume overload Technique: AP radiograph of the chest was obtaine d.Comparison: CT chest, 07/05/2020, plain radiographs of the chest, 07/04/2020.Findings:The ETT overliesthe upper to mid trachea. The feeding tube courses intothe abdomen, tip not included. Right PICC overlying the mid SVC.Improved hazy opacities in the lower lungs. Persistent moderate denseconsolidationin the medial left lung base.Borderline heart size with dilatation of the pulmonary arteries.Atherosclerotic calcifications of the aorta.Thoracic spondylosis.IMPRESSIONImpression:1. Improving bilateralpleural effusions. Persistent medial basilaratelectasis, left greater than right. No definite edema at this time.2. Findings suspicious for pulmonary hypertension, again noted.ITasneem MD., have reviewed this study and agree with theabove report.[facility] 1 [id number] 16:48:03Impression: 1. Improving bilateral pleural effusions. Persistent medial basilaratelectasis, left greater than right. No definite edema at this time.2. Findings suspicious for pulmonary hypertension, again noted. Tasneem Miramontes MD., have reviewed this study and agree with theabove report.Exam: XR CHEST 1 VW History: volume overload Technique: AP radiograph of the chest was obtained. Comparison: CT chest, 07/05/2020, plain radiographs of the chest, 07/04/2020. Findings: The ETT overlies the upper to mid trachea. The feeding tube courses intothe abdomen, tip not included. Right PICC overlying the mid SVC. Improved hazy opacities in the lower lungs. Persistent moderate denseconsolidation in the medial left lung base. Borderline heart size with dilatation of the pulmonary arteries.Atherosclerotic calcifications of the aorta. Thoracic spondylosis. [facility], Radiant Results Inft User - 07/08/2020 12:07 PM CDTExam: XR CHEST 1 VWHistory: volume overload Technique: AP radiograph of the chest was obtained.Comparison: CT chest, 07/05/2020, plain radiographs of the chest, 07/04/2020.Findings:The ETT overliesthe upper to mid trachea. The feeding tube courses intothe abdomen, tip not included. Right PICC overlying the mid SVC.Improved hazy opacities in the lower lungs. Persistent moderate denseconsolidationin the medial left lung base.Borderline heart size with dilatation of the pulmonary arteries.Atherosclerotic calcifications of the aorta.Thoracic spondylosis.IMPRESSIONImpression:1. Improving bilateralpleural effusions. Persistent medial basilaratelectasis, left greater than right. No definite edema at this time.2. Findings suspicious for pulmonary hypertension, again noted.I, Tasneem Goetz MD., have reviewed this study and agree with theabove report.[facility] PRO-BNP 2020-07-08 14:32:57 Test Item Value Reference Range Interpretation Comments NT-proBNP (test code 1270 pg/mL See_Comment H [Autom ated = 1665266593) message] The system which generated this result transmitted reference range : <=125. The reference range was not used to interpret this result as normal/abnormal . MEG (test code = MEG) Biotin has been reported to cause a negative bias, interpret results relative to patient's use of biotin. Lab Interpretation Abnormal (test code = 28164-7) [facility]MINAL [id number] 14:32:57 Test Item Value Reference Range Interpretation Comments NT-proBNP (test code 1270 pg/mL See_Comment H [Autom ated = 4283541024) message] The system which generated this result transmitted reference range : <=125. The reference range was not used to interpret this result as normal/abnormal . MEG (test code = MEG) Biotin has been reported to cause a negative bias, interpret results relative to patient's use of biotin. Lab Interpretation Abnormal (test code = 19025-4) [facility] GLUCOSE (AUTOMATED)2020-07-08 13:07:11 Test Item Value Reference Range Interpretation Comments POCT GLU (test code = 2966854304) 189 mg/dL 70-110 H Lab Interpretation (test code = Abnormal 04314-9) [facility] METABOLIC PANEL (NA, K, CL, CO2, GLUCOSE, BUN, CREATININE, CA)2020-07-08 09:53:49 Test Item Value Reference Range Interpretation Comments NA (test code = 139 mmol/L 135-145 3557011413) K (test code = 4.1 mmol/L 3.5-5.0 1038313308) CL (test code = 92 mmol/L 98-108 L 6484750587) CO2 TOTAL (test code = 38 mmol/L 23-31 H 0328720010) AGAP (test code = 2-16 8021193959) BUN (test code = 73 mg/dL 7-23 H 9264157661) GLUCOSE (test code = 177 mg/dL 70-110 H 9172903308) CREATININE (test code = 1.33 mg/dL 0.60-1.25 H 2988873311) CALCIUM (test code = 9.5 mg/dL 8.6-10.6 4825810229) eGFR (test code = mL/min/1.73m2 1007495056) MEG (test code = MEG) Association of Glomerular Filtration Rate (GFR) and Staging of Kidney Disease* + --+ --+ ------+| GFR (mL/min/1.73 m2) ?| With Kidney Damage ?| ?Without Kidney Damage+ --------+ --------+ +| ?>90 ?| ?Stage one ?| ? Normal ?+ ---+ ---+ -------+| ?60-89 ?| ?Stage two ?| ? Decreased GFR ? + --+ --+ ------+| ?30-59 ?| ?Stage three ?| ? Stage three ? + --+ --+ ------+| ?15-29 ?| ?Stage four ? | ? Stage four ?+ ---+ ---+ -------+| ?<15 (or dialysis) ? ?| ?Stage five ? | ? Stage five ?+ ---+ ---+ -------+ *Each stage assumes the associated GFR level has been in effect for at least three months. ?Stages 1 to 5, with or without kidney disease, indicate chronic kidney disease. Notes: Determination of stages one and two (with eGFR >59mL/min/1.73 m2) requires estimation of kidney damage for at least three months as defined by structural or functional abnormalities of the kidney, manifested by either:Pathological abnormalities or Markers of kidney damage (including abnormalities in the composition of the blood or urine or abnormalities in imaging tests). Lab Interpretation Abnormal (test code = 61348-3) [facility] CenterMAGNESIUM2021-[facility]-05 09:44:49 Test Item Value Reference Range Interpretation Comments MAGNESIUM (test code = 3227205178) 2.6 mg/dL 1.7-2.4 H Lab Interpretation (test code = Abnormal 73238-8) [facility] CenterCB WITH [id number] 09:22:28 Test Item Value Reference Range Interpretation Comments WBC (test code = See_Comment H [Automated 6690-2) message] The sy stem which generated this result transmitted reference range : 4.20 - 10.70 10*3/?L. The reference range was not used to interpret this result as normal/abnormal . RBC (test code = See_Comment L [Automated 789-8) message] The sy stem which generated this result transmitted reference range : 4.26 - 5.52 10*6/?L. The reference range was not used to interpret this result as normal/abnormal . HGB (test code = 7.9 g/dL 12.2-16.4 L 718-7) HCT (test code = 27.3 % 38.4-49.3 L 4544-3) MCV (test code = 92.5 fL 81.7-95.6 787-2) MCH (test code = 26.8 pg 26.1-32.7 785-6) MCHC (test code = 28.9 g/dL 31.2-35.0 L 786-4) RDW-SD (test code = 72.9 fL 38.5-51.6 H 95155-9) RDW-CV (test code = 23.1 % 12.1-15.4 H 788-0) PLT (test code = See_Comment H [Automated 777-3) message] The sy stem which generated this result transmitted reference range : 150 - 328 10*3/ ?L. The reference r delano was not used to interpret this result as normal/abnormal . MPV (test code = 11.5 fL 9.8-13.0 38907-3) NRBC/100 WBC (test See_Comment [Automat ed code = 2943617842) message] The system which generated this result transmitted reference range : 0.0 - 10.0 /100 WBCs. The refer ence range was not u sed to interpret th is result as normal/abnormal . NRBC x10^3 (test code See_Comment [Auto mated = 9724186208) message] The s ystem which generated this result transmitted reference range : 10*3/?L. The reference range was not used to interpret this result as normal/abnormal . GRAN MAT (NEUT) % 72.1 % (test code = 770-8) IMM GRAN % (test code 1.10 % = 6663355567) LYMPH % (test code = 17.0 % 736-9) MONO % (test code = 4.9 % 5905-5) EOS % (test code = 4.4 % 713-8) BASO % (test code = 0.5 % 706-2) GRAN MAT x10^3(ANC) 7.87 10*3/uL 1.99-6.95 H (test code = 3838810417) IMM GRAN x10^3 (test 0.12 10*3/uL 0.00-0.06 H code = 6212269036) LYMPH x10^3 (test code 1.86 10*3/uL 1.09-3.23 = 731-0) MONO x10^3 (test code 0.54 10*3/uL 0.36-1.02 = 742-7) EOS x10^3 (test code = 0.48 10*3/uL 0.06-0.53 711-2) BASO x10^3 (test code 0.05 10*3/uL 0.01-0.09 = 704-7) Lab Interpretation Abnormal (test code = 62738-3) [facility] + LACTIC [id number] 09:19:21 Test Item Value Reference Range Interpretation Comments PH (test code = 2) 7.35-7.45 H PCO2 (test code = See_Comment H [Automate d 6495688984) message] The sy stem which generated this result transmitted reference range : 35 - 45 mmHg. The reference range was not used to interpret this result as normal/abnormal . PO2 (test code = See_Comment [Automated 6149738045) message] The sy stem which generated this result transmitted reference range : 80 - 100 mmHg. The reference range was not used to interpret this result as normal/abnormal . HCO3 (test code = See_Comment H [Automate d 4632072375) message] The sy stem which generated this result transmitted reference range : 22 - 26 mEq/L. The reference range was not used to interpret this result as normal/abnormal . BE (test code = See_Comment H [Automated 1026437505) message] The sy stem which generated this result transmitted reference range : -3.0 - 3.0 mEq/ L. The reference r delano was not used to interpret this result as normal/abnormal . THB (test code = 8.7 g/dL 13.5-18.0 L 4685658121) %O2HB (test code = 96.1 % 94.0-99.0 6070106987) %COHB ART (test code = 1.2 % 0.0-1.5 4299227390) %METHB ART (test code = 0.2 % 0.4-1.5 L 7317691085) VOL%O2 ART (test code = 11.9 % 15.0-23.0 L 4577223524) NA (test code = 139 mmol/L 135-145 4650402909) K+ (test code = 4.1 mmol/L 3.5-5.0 2981542201) AC CA IONZ (test code = 4.70 mg/dL 4.50-5.30 4590851973) GLUCOSE (test code = 169 mg/dL 70-110 H 3242905618) LACTIC ACID (test code 1.63 mmol/L 0.50-2.20 = 2189862562) Lab Interpretation Abnormal (test code = 47070-8) [facility] + LACTIC [id number] 09:19:21 Test Item Value Reference Range Interpretation Comments PH (test code = 2) 7.35-7.45 H PCO2 (test code = See_Comment H [Automate d 1310108679) message] The sy stem which generated this result transmitted reference range : 35 - 45 mmHg. The reference range was not used to interpret this result as normal/abnormal . PO2 (test code = See_Comment [Automated 2648108706) message] The sy stem which generated this result transmitted reference range : 80 - 100 mmHg. The reference range was not used to interpret this result as normal/abnormal . HCO3 (test code = See_Comment H [Automate d 5283870563) message] The sy stem which generated this result transmitted reference range : 22 - 26 mEq/L. The reference range was not used to interpret this result as normal/abnormal . BE (test code = See_Comment H [Automated 9101452087) message] The sy stem which generated this result transmitted reference range : -3.0 - 3.0 mEq/ L. The reference r delano was not used to interpret this result as normal/abnormal . THB (test code = 8.7 g/dL 13.5-18.0 L 6936319763) %O2HB (test code = 96.1 % 94.0-99.0 4750578002) %COHB ART (test code = 1.2 % 0.0-1.5 3611690821) %METHB ART (test code = 0.2 % 0.4-1.5 L 5378426532) VOL%O2 ART (test code = 11.9 % 15.0-23.0 L 0072625894) NA (test code = 139 mmol/L 135-145 1810170490) K+ (test code = 4.1 mmol/L 3.5-5.0 8344075808) AC CA IONZ (test code = 4.70 mg/dL 4.50-5.30 2267400812) GLUCOSE (test code = 169 mg/dL 70-110 H 1520650072) LACTIC ACID (test code 1.63 mmol/L 0.50-2.20 = 3575474558) Lab Interpretation Abnormal (test code = 39048-6) [facility]2020-07-08 09:10:27 Test Item Value Reference Range Interpretation Comments POCT GLU (test code = 9280743060) 186 mg/dL 70-110 H Lab Interpretation (test code = Abnormal 05637-4) [facility] (for use with Heparin Drip)2020-07-08 05:35:53 Test Item Value Reference Range Interpretation Comments APTT Patient (test code See_Comment H [Au tomated message] = 3173-2) The system [employer] generated this result transmitted ref erence range: 26 - 36 Seconds. The reference range was not used to int erpret this result as normal/abnormal . Lab Interpretation (test Abnormal code = 85719-7) [facility] GLUCOSE (AUTOMATED)2020-07-08 05:30:37 Test Item Value Reference Range Interpretation Comments POCT GLU (test code = 2568404840) 170 mg/dL 70-110 H Lab Interpretation (test code = Abnormal 16983-2) [facility] GLUCOSE (AUTOMATED)2020-07-08 00:59:21 Test Item Value Reference Range Interpretation Comments POCT GLU (test code = 9392666211) 188 mg/dL 70-110 H Lab Interpretation (test code = Abnormal 70724-4) [facility] METABOLIC PANEL (NA, K, CL, CO2, GLUCOSE, BUN, CREATININE, CA)2020-07-07 21:47:59 Test Item Value Reference Range Interpretation Comments NA (test code = 141 mmol/L 135-145 5107502363) K (test code = 4.2 mmol/L 3.5-5.0 3803855984) CL (test code = 91 mmol/L 98-108 L 4003791966) CO2 TOTAL (test code = 39 mmol/L 23-31 H 8014158445) AGAP (test code = 2-16 1475080297) BUN (test code = 63 mg/dL 7-23 H 8751743160) GLUCOSE (test code = 191 mg/dL 70-110 H 7713242404) CREATININE (test code = 1.21 mg/dL 0.60-1.25 6472329664) CALCIUM (test code = 9.7 mg/dL 8.6-10.6 4786177110) eGFR (test code = mL/min/1.73m2 2797771504) MEG (test code = MEG) Association of Glomerular Filtration Rate (GFR) and Staging of Kidney Disease* + --+ --+ ------+| GFR (mL/min/1.73 m2) ?| With Kidney Damage ?| ?Without Kidney Damage+ --------+ --------+ +| ?>90 ?| ?Stage one ?| ? Normal ?+ ---+ ---+ -------+| ?60-89 ?| ?Stage two ?| ? Decreased GFR ? + --+ --+ ------+| ?30-59 ?| ?Stage three ?| ? Stage three ? + --+ --+ ------+| ?15-29 ?| ?Stage four ? | ? Stage four ?+ ---+ ---+ -------+| ?<15 (or dialysis) ? ?| ?Stage five ? | ? Stage five ?+ ---+ ---+ -------+ *Each stage assumes the associated GFR level has been in effect for at least three months. ?Stages 1 to 5, with or without kidney disease, indicate chronic kidney disease. Notes: Determination of stages one and two (with eGFR >59mL/min/1.73 m2) requires estimation of kidney damage for at least three months as defined by structural or functional abnormalities of the kidney, manifested by either:Pathological abnormalities or Markers of kidney damage (including abnormalities in the composition of the blood or urine or abnormalities in imaging tests). Lab Interpretation Abnormal (test code = 13104-5) [facility] GLUCOSE (AUTOMATED)2020-07-07 20:42:49 Test Item Value Reference Range Interpretation Comments POCT GLU (test code = 0545197585) 186 mg/dL 70-110 H Lab Interpretation (test code = Abnormal 25522-1) [facility] use with Heparin Drip)2020-07-07 17:35:09 Test Item Value Reference Range Interpretation Comments APTT Patient (test code See_Comment H [Au tomated message] = 3173-2) The system [employer] generated this result transmitted ref erence range: 26 - 36 Seconds. The reference range was not used to int erpret this result as normal/abnormal . Lab Interpretation (test Abnormal code = 42293-1) [facility] CenterSPUTUM [id number] 17:31:57 Test Item Value Reference Range Interpretation Comments SPUTUM CULTURE (test No aerobic organisms code = 622-1) isolated Gram stain (test code Occasional (Rare) = 664-3) Epithelial cells [facility] GLUCOSE (AUTOMATED)2020-07-07 17:00:08 Test Item Value Reference Range Interpretation Comments POCT GLU (test code = 0315201725) 145 mg/dL 70-110 H Lab Interpretation (test code = Abnormal 40182-1) [facility] [id number] 16:54:30 Nonobstructive bowel gas pattern The Dobbhoff tube tip projects over the distal stomach. Further adv ancementis recommended if postpyloric positioning ?is ?desired. Preliminary Report Dictated by Resident: Shahram Hill MD., have reviewed this study and agree with the abovereport.EXAM: XR KUB HISTORY: 64 years-old Male presenting with NGT placement COMPARISON: CT abdomen and pelvis 07/05/2020. FINDINGS: The Dobbhoff tube tip projects over the distal stomach. No evidence of dilatedbowel loops are noted. No abnormal calcifications or radiopaque stones are identified. No acute bonyabnormalities are noted. [facility], Radiant Results Inft User - 07/07/2020 11:55 AM CDTEXAM: XR KUBHISTORY: 64 years-old Male presenting with NGT placement COMPARISON: CT abdomen and pelvis 07/05/2020. FINDINGS:The Dobbhoff tube tip projects over the distal stomach.No evidence of dilated bowel loops are noted. No abnormal calcifications or radiopaque stones are identified. No acute bony abnormalities are not ed.IMPRESSIONNonobstructive bowel gas patternThe Dobbhoff tube tip projects over the distal stomach.Further advancementis recommended if postpyloric positioning is desired.Preliminary Report Dictated by Resident: Shahram Lee MD., have reviewed this study and agree with the abovereport.[facility] [id number] 16:54:30 Nonobstructive bowel gas pattern The Dobbhoff tube tip projects over the distal stomach. Further adv ancementis recommended if postpyloric positioning ?is ?desired. Preliminary Report Dictated by Resident: Shahram Hill MD., have reviewed this study and agree with the abovereport.EXAM: XR KUB HISTORY: 64 years-old Male presenting with NGT placement COMPARISON: CT abdomen and pelvis 07/05/2020. FINDINGS: The Dobbhoff tube tip projects over the distal stomach. No evidence of dilatedbowel loops are noted. No abnormal calcifications or radiopaque stones are identified. No acute bonyabnormalities are noted. [facility], Radiant Results Inft User - 07/07/2020 11:55 AM CDTEXAM: XR KUBHISTORY: 64 years-old Male presenting with NGT placement COMPARISON: CT abdomen and pelvis 07/05/2020. FINDINGS:The Dobbhoff tube tip projects over the distal stomach.No evidence of dilated bowel loops are noted. No abnormal calcifications or radiopaque stones are identified. No acute bony abnormalities are not ed.IMPRESSIONNonobstructive bowel gas patternThe Dobbhoff tube tip projects over the distal stomach.Further advancementis recommended if postpyloric positioning is desired.Preliminary Report Dictated by Resident: Shahram Lee MD., have reviewed this study and agree with the abovereport.[facility] GLUCOSE (AUTOMATED)2020-07-07 12:37:23 Test Item Value Reference Range Interpretation Comments POCT GLU (test code = 0474776100) 150 mg/dL 70-110 H Lab Interpretation (test code = Abnormal 58061-3) [facility] WITH [id number] 09:47:52 Test Item Value Reference Range Interpretation Comments WBC (test code = See_Comment [Automated 6690-2) message] The sy stem which generated this result transmitted reference range : 4.20 - 10.70 10*3/?L. The reference range was not used to interpret this result as normal/abnormal . RBC (test code = See_Comment L [Automated 789-8) message] The sy stem which generated this result transmitted reference range : 4.26 - 5.52 10*6/?L. The reference range was not used to interpret this result as normal/abnormal . HGB (test code = 8.1 g/dL 12.2-16.4 L 718-7) HCT (test code = 29.0 % 38.4-49.3 L 4544-3) MCV (test code = 93.5 fL 81.7-95.6 787-2) MCH (test code = 26.1 pg 26.1-32.7 785-6) MCHC (test code = 27.9 g/dL 31.2-35.0 L 786-4) RDW-SD (test code = 72.6 fL 38.5-51.6 H 77330-5) RDW-CV (test code = 22.8 % 12.1-15.4 H 788-0) PLT (test code = See_Comment H [Automated 777-3) message] The sy stem which generated this result transmitted reference range : 150 - 328 10*3/ ?L. The reference r delano was not used to interpret this result as normal/abnormal . MPV (test code = 11.9 fL 9.8-13.0 34486-7) NRBC/100 WBC (test See_Comment [Automat ed code = 3892935770) message] The system which generated this result transmitted reference range : 0.0 - 10.0 /100 WBCs. The refer ence range was not u sed to interpret th is result as normal/abnormal . NRBC x10^3 (test code See_Comment [Auto mated = 3521517757) message] The s ystem which generated this result transmitted reference range : 10*3/?L. The reference range was not used to interpret this result as normal/abnormal . GRAN MAT (NEUT) % 74.9 % (test code = 770-8) IMM GRAN % (test code 1.10 % = 6812582157) LYMPH % (test code = 14.2 % 736-9) MONO % (test code = 5.0 % 5905-5) EOS % (test code = 4.4 % 713-8) BASO % (test code = 0.4 % 706-2) GRAN MAT x10^3(ANC) 7.58 10*3/uL 1.99-6.95 H (test code = 2903158639) IMM GRAN x10^3 (test 0.11 10*3/uL 0.00-0.06 H code = 1939981833) LYMPH x10^3 (test code 1.44 10*3/uL 1.09-3.23 = 731-0) MONO x10^3 (test code 0.51 10*3/uL 0.36-1.02 = 742-7) EOS x10^3 (test code = 0.45 10*3/uL 0.06-0.53 711-2) BASO x10^3 (test code 0.04 10*3/uL 0.01-0.09 = 704-7) BANDS (test code = Increased A 6302480436) Lab Interpretation Abnormal (test code = 69835-3) [facility] (NA, K, CL, CO2, GLUCOSE, BUN, CREATININE, CA)2020-07-07 09:26:59 Test Item Value Reference Range Interpretation Comments NA (test code = 141 mmol/L 135-145 4774513820) K (test code = 4.6 mmol/L 3.5-5.0 5359691630) CL (test code = 94 mmol/L 98-108 L 1418690829) CO2 TOTAL (test code = 40 mmol/L 23-31 H 8312658700) AGAP (test code = 2-16 9980197032) BUN (test code = 59 mg/dL 7-23 H 1777757363) GLUCOSE (test code = 159 mg/dL 70-110 H 4924063046) CREATININE (test code = 1.28 mg/dL 0.60-1.25 H 6100928331) CALCIUM (test code = 9.2 mg/dL 8.6-10.6 0182378205) eGFR (test code = mL/min/1.73m2 7293125184) MEG (test code = MEG) Association of Glomerular Filtration Rate (GFR) and Staging of Kidney Disease* + --+ --+ ------+| GFR (mL/min/1.73 m2) ?| With Kidney Damage ?| ?Without Kidney Damage+ --------+ --------+ +| ?>90 ?| ?Stage one ?| ? Normal ?+ ---+ ---+ -------+| ?60-89 ?| ?Stage two ?| ? Decreased GFR ? + --+ --+ ------+| ?30-59 ?| ?Stage three ?| ? Stage three ? + --+ --+ ------+| ?15-29 ?| ?Stage four ? | ? Stage four ?+ ---+ ---+ -------+| ?<15 (or dialysis) ? ?| ?Stage five ? | ? Stage five ?+ ---+ ---+ -------+ *Each stage assumes the associated GFR level has been in effect for at least three months. ?Stages 1 to 5, with or without kidney disease, indicate chronic kidney disease. Notes: Determination of stages one and two (with eGFR >59mL/min/1.73 m2) requires estimation of kidney damage for at least three months as defined by structural or functional abnormalities of the kidney, manifested by either:Pathological abnormalities or Markers of kidney damage (including abnormalities in the composition of the blood or urine or abnormalities in imaging tests). Lab Interpretation Abnormal (test code = 20383-7) [facility]2021-[facility] 09:15:18 Test Item Value Reference Range Interpretation Comments MAGNESIUM (test code = 2353996639) 2.6 mg/dL 1.7-2.4 H Lab Interpretation (test code = Abnormal 67212-0) [facility] 20 + LACTIC [id number] 08:52:52 Test Item Value Reference Range Interpretation Comments PH (test code = 2) 7.35-7.45 H PCO2 (test code = See_Comment H [Automate d 4939874885) message] The sy stem which generated this result transmitted reference range : 35 - 45 mmHg. The reference range was not used to interpret this result as normal/abnormal . PO2 (test code = See_Comment L [Automated 7284344616) message] The sy stem which generated this result transmitted reference range : 80 - 100 mmHg. The reference range was not used to interpret this result as normal/abnormal . HCO3 (test code = See_Comment H [Automate d 7230410210) message] The sy stem which generated this result transmitted reference range : 22 - 26 mEq/L. The reference range was not used to interpret this result as normal/abnormal . BE (test code = See_Comment H [Automated 4354414915) message] The sy stem which generated this result transmitted reference range : -3.0 - 3.0 mEq/ L. The reference r delano was not used to interpret this result as normal/abnormal . THB (test code = 10.5 g/dL 13.5-18.0 L 8270240655) %O2HB (test code = 89.9 % 94.0-99.0 L 1468901276) %COHB ART (test code = 1.9 % 0.0-1.5 H 7378368711) %METHB ART (test code = 0.1 % 0.4-1.5 L 2044020609) VOL%O2 ART (test code = 13.3 % 15.0-23.0 L 8047240756) NA (test code = 142 mmol/L 135-145 7895108904) K+ (test code = 4.6 mmol/L 3.5-5.0 6835509592) AC CA IONZ (test code = 4.60 mg/dL 4.50-5.30 2969210982) GLUCOSE (test code = 159 mg/dL 70-110 H 2756673281) LACTIC ACID (test code 1.48 mmol/L 0.50-2.20 = 7232183115) Lab Interpretation Abnormal (test code = 74854-4) [facility] GLUCOSE (AUTOMATED)2020-07-07 08:50:21 Test Item Value Reference Range Interpretation Comments POCT GLU (test code = 9200433651) 169 mg/dL 70-110 H Lab Interpretation (test code = Abnormal 48460-1) [facility] (for use with Heparin Drip)2020-07-07 04:59:16 Test Item Value Reference Range Interpretation Comments APTT Patient (test code See_Comment H [Au tomated message] = 3173-2) The system [employer] generated this result transmitted ref erence range: 26 - 36 Seconds. The reference range was not used to int erpret this result as normal/abnormal . Lab Interpretation (test Abnormal code = 90383-8) [facility] GLUCOSE (AUTOMATED)2020-07-07 04:46:52 Test Item Value Reference Range Interpretation Comments POCT GLU (test code = 4443054916) 147 mg/dL 70-110 H Lab Interpretation (test code = Abnormal 13087-6) [facility] GLUCOSE (AUTOMATED)2020-07-07 00:51:07 Test Item Value Reference Range Interpretation Comments POCT GLU (test code = 8220856706) 156 mg/dL 70-110 H Lab Interpretation (test code = Abnormal 70670-2) [facility] METABOLIC PANEL (NA, K, CL, CO2, GLUCOSE, BUN, CREATININE, CA)2020-07-06 21:23:46 Test Item Value Reference Range Interpretation Comments NA (test code = 142 mmol/L 135-145 8364263908) K (test code = 2.5 mmol/L 3.5-5.0 2429936500) CL (test code = 111 mmol/L 98-108 H 9496354057) CO2 TOTAL (test code = 28 mmol/L 23-31 7691461752) AGAP (test code = 2-16 8067832206) BUN (test code = 37 mg/dL 7-23 H 1425356565) GLUCOSE (test code = 110 mg/dL 70-110 0374672608) CREATININE (test code = 0.76 mg/dL 0.60-1.25 3647206724) CALCIUM (test code = 6.1 mg/dL 8.6-10.6 L 5829972012) eGFR (test code = mL/min/1.73m2 6081621467) MEG (test code = MEG) Association of Glomerular Filtration Rate (GFR) and Staging of Kidney Disease* + --+ --+ ------+| GFR (mL/min/1.73 m2) ?| With Kidney Damage ?| ?Without Kidney Damage+ --------+ --------+ +| ?>90 ?| ?Stage one ?| ? Normal ?+ ---+ ---+ -------+| ?60-89 ?| ?Stage two ?| ? Decreased GFR ? + --+ --+ ------+| ?30-59 ?| ?Stage three ?| ? Stage three ? + --+ --+ ------+| ?15-29 ?| ?Stage four ? | ? Stage four ?+ ---+ ---+ -------+| ?<15 (or dialysis) ? ?| ?Stage five ? | ? Stage five ?+ ---+ ---+ -------+ *Each stage assumes the associated GFR level has been in effect for at least three months. ?Stages 1 to 5, with or without kidney disease, indicate chronic kidney disease. Notes: Determination of stages one and two (with eGFR >59mL/min/1.73 m2) requires estimation of kidney damage for at least three months as defined by structural or functional abnormalities of the kidney, manifested by either:Pathological abnormalities or Markers of kidney damage (including abnormalities in the composition of the blood or urine or abnormalities in imaging tests). Lab Interpretation Abnormal (test code = 82918-1) [facility] GLUCOSE (AUTOMATED)2020-07-06 20:52:21 Test Item Value Reference Range Interpretation Comments POCT GLU (test code = 1876330907) 152 mg/dL 70-110 H Lab Interpretation (test code = Abnormal 88917-8) [facility]for use with Heparin Drip)2020-07-06 17:41:16 Test Item Value Reference Range Interpretation Comments APTT Patient (test code See_Comment H [Au tomated message] = 3173-2) The system [employer] generated this result transmitted ref erence range: 26 - 36 Seconds. The reference range was not used to int erpret this result as normal/abnormal . Lab Interpretation (test Abnormal code = 02673-6) [facility] GLUCOSE (AUTOMATED)2020-07-06 16:08:50 Test Item Value Reference Range Interpretation Comments POCT GLU (test code = 6413471061) 187 mg/dL 70-110 H Lab Interpretation (test code = Abnormal 75834-2) [facility] CHEST PULMONARY [id number] 15:31:24 No acute pulmonary embolism. Interstitial pulmonary edema with moderate bilateral pleural fusions. Preliminary Report Dictated by Resident: Shahram Hylton MD., have reviewed this study and agree with the abovereport.PROCEDURE: CT ANGIO CHEST WITH CONTRAST - PE PROTOCOL CLINICAL INDICATION: PE suspected, high pretest prob ? COMPARISON: ?None. TECHNIQUE: ?Helical CT was performed and reconstructed at 1.25 mm slicethickness from lung bases to apices using 120 mL ?intravenous contrast,without complication. ? Axial MIPS and coronal/sagittal MPRS werereco nstructed. ? (DFOV = cm) FINDINGS: PULMONARY ARTERIES: Enhancement is adequate and there is no acuteor chronic pulmonaryembolism. CHEST:Lower neck/thyroid: Unremarkable. Lungs/pleura: Moderate sized bilateral pleural effusions which track alongthe fissures. Passive atelectasis is seen bilaterally. Diffuse intralobularseptal thickening suggests pulmonary edema. No pneumothorax. Central airway: The endotracheal tube terminates 4.2 cm superior to thecarina. The central airways are otherwise patent. Thoracic aorta and great vessels: ?Normal in diameter with scatteredatherosclerotic calcifications. Pulmonary arteries slightly dilated andmeasures 3.4 cm Heart and pericardium: Multivessel coronary arterial calcification.Unremarkable cardiac morphology and pericardium. Lymph nodes: No enlarged thoracic lymph nodes. Multiple small nonspecificlymph nodes are seen in the precarinal space as well as in theAP windowand prevascular space. Thoracic spine and chest wall: The vertebral bodies are normal in hei ghtand alignment. No suspicious bony lesion is identified. No acute fractureor dislocations are seen. Other Lines/Tubes/Devices/Hardware: The gastric tube extends into the upperabdomen beyond the fieldof view. The right-sided PICC is difficult tovisualize in the SVC due to the contrast bolus althoughit likelyterminates in the mid to lower SVC. Visualized upper abdomen: Please refer to the concurrently obtained butseparately dictated CT abdomen for characterization of abdominal findings. [facility], Radiant Results Inft User - 07/06/2020 10:32 AM CDTPROCEDURE: CT ANGIO CHEST WITH CONTRAST - PE PROTOCOLCL INICAL INDICATION: PE suspected, high pretest prob COMPARISON: None.TECHNIQUE: Helical CT was performed and reconstructed at 1.25 mm slicethickness from lung bases to apices using 120 mL intravenous contrast,without complication. Axial MIPS and coronal/sagittal MPRS werereconstructed. (DFOV = cm)FINDINGS:PULMONARY ARTERIES: Enhancement is adequate and there is no acute or chronic pulmonaryembolism.CHEST:Lower neck/thyroid: Unremarkable.Lungs/pleura: Moderate sized bilateral pleural effusions which track alongthe fissures. Passive atelectasis is seen bilaterally. Diffuse intralobularseptal thickening suggests pulmonary edema. No pneumothorax.Central airway: The endotracheal tube terminates 4.2 cm superior to thecarina. The central airways are otherwise patent.Thoracic aorta and great vessels: Normal in diameter with scatteredatherosclerotic calcifications. Pulmonary arteries slightly dilated andmeasures 3.4 cmHeart and pericardium: Multivessel coronary arterial calcification.Unremarkable cardiac morphology and pericardium.Lymph nodes: No enlarged thoracic lymph nodes. Multiple small nonspecificlymph nodes are seen in the precarinal space as well as in the AP windowand prevascular space.Thoracic spine and chest wall: The vertebral bodies are normal in heightand alignment. No suspicious bony lesion is identified. No acute fractureor dislocations are seen.Other Lines/Tubes/Devices/Hardware: The gastric tube extends into the upperabdomen beyond the field of view. The right-sided PICC is difficult tovisualize in the SVC due to the contrast bolus although it likelyterminates in the mid to lowerSVC.Visualized upper abdomen: Please refer to the concurrently obtained butseparately dictated CT abdomen for characterization of abdominal findings.IMPRESSIONNo acute pulmonary embolism.Interstitial pulmonary edema with moderate bilateral pleural fusions. Preliminary Report Dictated by Resident: Shahram Yang MD., have reviewed this study and agree with the abovereport.[facility] [id number] 15:31:24 No acute pulmonary embolism. Interstitial pulmonary edema with moderate bilateral pleural fusions.__ Preliminary Report Dictated by Resident: Shahram Hylton MD., have reviewed this study and agree with the abovereport.PROCEDURE: CT ANGIO CHEST WITH CONTRAST - PE PROTOCOL CLINICAL INDICATION: PE suspected, high pretest prob ? COMPARISON: ?None. TECHNIQUE: ?Helical CT was performed and reconstructed at 1.25 mm slicethickness from lung bases to apices using 120 mL ?intravenous contrast,without complication. ? Axial MIPS and coronal/sagittal MPRS werereconstructed. ? (DFOV = cm) FINDINGS: PULMONARY ARTERIES: Enhancement is adequate and there is no acuteor chronic pulmonaryembolism. CHEST:Lower neck/thyroid: Unremarkable. Lungs/pleura: Moderate sized bilateral pleural effusions which track alongthe fissures. Passive atelectasis is seen bilaterally. Diffuse intralobularseptal thickening suggests pulmonary edema. No pneumothorax. Central airway: The endotracheal tube terminates 4.2 cm superior to thecarina. The central airways are otherwise patent. Thoracic aorta and great vessels: ?Normal in diameter with scatteredatherosclerotic calcifications. Pulmonary arteries slightly dilated andmeasures 3.4 cm Heart and pericardium: Multivessel coronary arterial calcification.Unremarkable cardiac morphology and pericardium. Lymph nodes: No enlarged thoracic lymph nodes. Multiple small nonspecificlymph nodes are seen in the precarinal space as well as in theAP windowand prevascular space. Thoracic spine and chest wall: The vertebral bodies are normal in heightand alignment. No suspicious bony lesion is identified. No acute fractureor dislocations are seen. Other Lines/Tubes/Devices/Hardware: The gastric tube extends into the upperabdomen beyond the fieldof view. The right-sided PICC is difficult tovisualize in the SVC due to the contrast bolus althoughit likelyterminates in the mid to lower SVC. Visualized upper abdomen: Please refer to the concurrently obtained butseparately dictated CT abdomen for characterization of abdominal findings. [facility], Radiant Results Inft User - 07/06/2020 10:32 AM CDTPROCEDURE: CT ANGIO CHEST WITH CONTRAST - PE PROTOCOLCLINICAL INDICATION: PE suspected, high pretest prob COMPARISON: None.TECHNIQUE: Helical CT was performed and reconstructed at 1.25 mm slicethickness from lung bases to apices using 120 mL intravenous contrast,without complication. Axial MIPS and coronal/sagittal MPRS werereconstructed. (DFOV = cm)FINDINGS:PULMONARY ARTERIES: Enhancement is adequate and there is no acute or chronic pulmonaryembolism.CHEST:Lower neck/thyroid: Unremarkable.Lungs/pleura: Moderate sized bilateral pleural effusions which track alongthe fissures. Passive atelectasis is seen bilaterally. Diffuse intralobularseptal thickening suggests pulmonary edema. No pneumothorax.Central airway: The endotracheal tube terminates 4.2 cm superior to thecarina. The central airways are otherwise patent.Thoracic aorta and great vessels: Normal in diameter with scatteredatherosclerotic calcifications. Pulmonary arteries slightly dilated andmeasures 3.4 cmHeart and pericardium: Multivessel coronary arterial calcification.Unremarkable cardiacmorphology and pericardium.Lymph nodes: No enlarged thoracic lymph nodes. Multiple small nonspecificlymph nodes are seen in the precarinal space as well as in the AP windowand prevascular space.Thoracic spine and chest wall: The vertebral bodies are normal in heightand alignment. No suspicious bony lesion is identified. No acute fractureor dislocations are seen.Other Lines/Tubes/Devices/Hardware: The gastric tube extends into the upperabdomen beyond the field of view. The right- sided PICC is difficult tovisualize in the SVC due to the contrast bolus although it likelyterminates in the mid to lower SVC.Visualized upper abdomen: Please refer to the concurrently obtained butseparately dictated CT abdomen for characterization of abdominal findings.IMPRESSIONNo acute pulmonary embolism.Interstitial pulmonary edema with moderate bilateral pleural fusions. Preliminary Report Dictated by Resident: Shahram Yang MD., have reviewed this study and agree withthe abovereport.[facility] CenterPROCALCITONIN2021-04-03 14:14:55 Test Item Value Reference Range Interpretation Comments Procalcitonin (test 1.22 ng/mL <0.07 H code = 3160979631) MEG (test code = MEG) INTERPRETATION OF PROCALCITONIN RESULTS IN ADULTS >= 18 YEARS OF AGE Initiation and discontinuation of antibiotics on patients with suspected or confirmed Lower Respiratory Tract Infection in Adults >= 18 years of age. + +-------- --------+ + -----+|Procalcitonin |Interpretation ?|Antibiotic ? ? |Considerations ? |ng/mL ? | ?|recommendation | ? + +-------- --------+ + -----+| <0.1 ? | Bacterial ? ? ?| Strongly ? ? ?| ? | ?| infection very | discouraged ? | Overruling: ? | ?| unlikely ? ? ? | ? | ? Clinically unstable ? ? ? + +-------- --------+ + ? High risk for adverse ? ? | <0.25 ?| Bacterial ? ? ?| Discouraged ? | ? outcome ? | ?| infection ? ? ?| ? | ? SEE IMPORTANT NOTE ?| ?| unlikely ? ? ? | ? | ? + +-------- --------+ + -----+| >=0.25 ? ? ? | Bacterial ? ? ?| Encouraged ? ?| ? | ?| infection ? ? ?| ? | ? | ?| likely ? | ? | Consider treatment failure ?+ +------- ---------+ -+ if levels does not decrease | >0.5 ? | Bacterial ? ? ?| Strongly ? ? ?| appropriately ? | ?| infection very | encouraged ? ?| ? | ?| likely ? | ? | ? + +-------- --------+ + -----+ Discontinuation of antibiotics in high-acuity patients with suspected or confirmed sepsis in Adults >= 18 years of age. + +-------- --------+ + -----+|Procalcitonin |Interpretation ?|Antibiotic ? ? |Considerations ? |ng/mL ? | ?|recommendation | ? + +-------- --------+ + -----+| <0.25 ?| Bacterial ? ? ?| Strongly ? ? ?| ? | ?| infection very | discouraged ? | Overruling: ? | ?| unlikely ? ? ? | ? | ? Clinically unstable ? ? ? + +-------- --------+ + ? High risk for adverse ? ? | <0.5 or drop | Bacterial ? ? ?| Discouraged ? | ? outcome ? | >80% from ? ?| infection ? ? ?| ? | ? SEE IMPORTANT NOTE ?| highest PCT ?| unlikely ? ? ? | ? | ? | level ?| ?| ? | ? + +-------- --------+ + -----+| >=0.5 ?| Bacterial ? ? ?| Encouraged ? ?| ? | ?| infection ? ? ?| ? | ? | ?| likely ? | ? | Consider treatment failure ?+ +------- ---------+ -+ if levels does not decrease | >1.0 ? | Bacterial ? ? ?| Strongly ? ? ?| appropriately ? | ?| infection very | encouraged ? ?| ? | ?| likely ? | ? | ? + +-------- --------+ + -----+ Percentage of drop of Procalcitonin calculation for Discontinuation of antibiotics in high-acuity patients with suspected or confirmed sepsis in Adults >= 18 years of age. ? Procalcitonin highest{}-Procalcitonin current{}Delta Procalcitonin = x100% ? Procalcitonin current {} IMPORTANT NOTE: Procalcitonin may be elevated without bacterial infection by physiologic stress related to trauma, moore, chronic dialysis, metastatic cancer, surgery in the past seven days, malaria, some fungal infections, and some forms of vasculitis. The interpretation algorithm may not apply to patients with immunosuppression (equivalent of >10 mg of prednisone daily), HIV with CD4 cell count < 350 cells/mm3, active malignancy on systemic chemotherapy, solid organ transplant or hematopoietic stem cell transplantation, or hospital acquired pneumonia. Additionally, some clinical trials of procalcitonin have excluded patients with shock requiring vasopressor use, acute respiratory failure requiring mechanical ventilation, or those with known lung abscess/empyema. For further information please refer to:[email or web address] Lab Interpretation Abnormal (test code = 62318-2) [facility] Center[facility]AL[facility]ONIN2021-[facility]-03 14:14:55 Test Item Value Reference Range Interpretation Comments Procalcitonin (test 1.22 ng/mL <0.07 H code = 4287962862) MEG (test code = MEG) INTERPRETATION OF PROCALCITONIN RESULTS IN ADULTS >= 18 YEARS OF AGE Initiation and discontinuation of antibiotics on patients with suspected or confirmed Lower Respiratory Tract Infection in Adults >= 18 years of age. + +-------- --------+ + -----+|Procalcitonin |Interpretation ?|Antibiotic ? ? |Considerations ? |ng/mL ? | ?|recommendation | ? + +-------- --------+ + -----+| <0.1 ? | Bacterial ? ? ?| Strongly ? ? ?| ? | ?| infection very | discouraged ? | Overruling: ? | ?| unlikely ? ? ? | ? | ? Clinically unstable ? ? ? + +-------- --------+ + ? High risk for adverse ? ? | <0.25 ?| Bacterial ? ? ?| Discouraged ? | ? outcome ? | ?| infection ? ? ?| ? | ? SEE IMPORTANT NOTE ?| ?| unlikely ? ? ? | ? | ? + +-------- --------+ + -----+| >=0.25 ? ? ? | Bacterial ? ? ?| Encouraged ? ?| ? | ?| infection ? ? ?| ? | ? | ?| likely ? | ? | Consider treatment failure ?+ +------- ---------+ -+ if levels does not decrease | >0.5 ? | Bacterial ? ? ?| Strongly ? ? ?| appropriately ? | ?| infection very | encouraged ? ?| ? | ?| likely ? | ? | ? + +-------- --------+ + -----+ Discontinuation of antibiotics in high-acuity patients with suspected or confirmed sepsis in Adults >= 18 years of age. + +-------- --------+ + -----+|Procalcitonin |Interpretation ?|Antibiotic ? ? |Considerations ? |ng/mL ? | ?|recommendation | ? + +-------- --------+ + -----+| <0.25 ?| Bacterial ? ? ?| Strongly ? ? ?| ? | ?| infection very | discouraged ? | Overruling: ? | ?| unlikely ? ? ? | ? | ? Clinically unstable ? ? ? + +-------- --------+ + ? High risk for adverse ? ? | <0.5 or drop | Bacterial ? ? ?| Discouraged ? | ? outcome ? | >80% from ? ?| infection ? ? ?| ? | ? SEE IMPORTANT NOTE ?| highest PCT ?| unlikely ? ? ? | ? | ? | level ?| ?| ? | ? + +-------- --------+ + -----+| >=0.5 ?| Bacterial ? ? ?| Encouraged ? ?| ? | ?| infection ? ? ?| ? | ? | ?| likely ? | ? | Consider treatment failure ?+ +------- ---------+ -+ if levels does not decrease | >1.0 ? | Bacterial ? ? ?| Strongly ? ? ?| appropriately ? | ?| infection very | encouraged ? ?| ? | ?| likely ? | ? | ? + +-------- --------+ + -----+ Percentage of drop of Procalcitonin calculation for Discontinuation of antibiotics in high-acuity patients with suspected or confirmed sepsis in Adults >= 18 years of age. ? Procalcitonin highest{}-Procalcitonin current{}Delta Procalcitonin = x100% ? Procalcitonin current {} IMPORTANT NOTE: Procalcitonin may be elevated without bacterial infection by physiologic stress related to trauma, moore, chronic dialysis, metastatic cancer, surgery in the past seven days, malaria, some fungal infections, and some forms of vasculitis. The interpretation algorithm may not apply to patients with immunosuppression (equivalent of >10 mg of prednisone daily), HIV with CD4 cell count < 350 cells/mm3, active malignancy on systemic chemotherapy, solid organ transplant or hematopoietic stem cell transplantation, or hospital acquired pneumonia. Additionally, some clinical trials of procalcitonin have excluded patients with shock requiring vasopressor use, acute respiratory failure requiring mechanical ventilation, or those with known lung abscess/empyema. For further information please refer to:[email or web address] Lab Interpretation Abnormal (test code = 72439-7) [facility] (AUTOMATED)2020-07-06 12:35:19 Test Item Value Reference Range Interpretation Comments POCT GLU (test code = 1817625287) 129 mg/dL 70-110 H Lab Interpretation (test code = Abnormal 84570-9) [facility] METABOLIC PANEL (NA, K, CL, CO2, GLUCOSE, BUN, CREATININE, CA)2020-07-06 10:10:36 Test Item Value Reference Range Interpretation Comments NA (test code = 142 mmol/L 135-145 5780996384) K (test code = 3.6 mmol/L 3.5-5.0 7043769330) CL (test code = 96 mmol/L 98-108 L 0099483774) CO2 TOTAL (test code = 39 mmol/L 23-31 H 7584453083) AGAP (test code = 2-16 7594854453) BUN (test code = 49 mg/dL 7-23 H 7292946888) GLUCOSE (test code = 144 mg/dL 70-110 H 2607083005) CREATININE (test code = 1.20 mg/dL 0.60-1.25 1403684492) CALCIUM (test code = 9.0 mg/dL 8.6-10.6 8457457208) eGFR (test code = mL/min/1.73m2 7466133693) MEG (test code = MEG) Association of Glomerular Filtration Rate (GFR) and Staging of Kidney Disease* + --+ --+ ------+| GFR (mL/min/1.73 m2) ?| With Kidney Damage ?| ?Without Kidney Damage+ --------+ --------+ +| ?>90 ?| ?Stage one ?| ? Normal ?+ ---+ ---+ -------+| ?60-89 ?| ?Stage two ?| ? Decreased GFR ? + --+ --+ ------+| ?30-59 ?| ?Stage three ?| ? Stage three ? + --+ --+ ------+| ?15-29 ?| ?Stage four ? | ? Stage four ?+ ---+ ---+ -------+| ?<15 (or dialysis) ? ?| ?Stage five ? | ? Stage five ?+ ---+ ---+ -------+ *Each stage assumes the associated GFR level has been in effect for at least three months. ?Stages 1 to 5, with or without kidney disease, indicate chronic kidney disease. Notes: Determination of stages one and two (with eGFR >59mL/min/1.73 m2) requires estimation of kidney damage for at least three months as defined by structural or functional abnormalities of the kidney, manifested by either:Pathological abnormalities or Markers of kidney damage (including abnormalities in the composition of the blood or urine or abnormalities in imaging tests). Lab Interpretation Abnormal (test code = 88780-3) [facility] CenterMAGNESIUM2021-04-03 10:00:38 Test Item Value Reference Range Interpretation Comments MAGNESIUM (test code = 4716210809) 2.4 mg/dL 1.7-2.4 Lab Interpretation (test code = Normal 76092-4) [facility] WITH [id number] 09:36:33 Test Item Value Reference Range Interpretation Comments WBC (test code = See_Comment H [Automated 6690-2) message] The sy stem which generated this result transmitted reference range : 4.20 - 10.70 10*3/?L. The reference range was not used to interpret this result as normal/abnormal . RBC (test code = See_Comment L [Automated 789-8) message] The sy stem which generated this result transmitted reference range : 4.26 - 5.52 10*6/?L. The reference range was not used to interpret this result as normal/abnormal . HGB (test code = 8.1 g/dL 12.2-16.4 L 718-7) HCT (test code = 28.5 % 38.4-49.3 L 4544-3) MCV (test code = 92.8 fL 81.7-95.6 787-2) MCH (test code = 26.4 pg 26.1-32.7 785-6) MCHC (test code = 28.4 g/dL 31.2-35.0 L 786-4) RDW-SD (test code = 70.5 fL 38.5-51.6 H 54794-7) RDW-CV (test code = 22.3 % 12.1-15.4 H 788-0) PLT (test code = See_Comment H [Automated 777-3) message] The sy stem which generated this result transmitted reference range : 150 - 328 10*3/ ?L. The reference r delano was not used to interpret this result as normal/abnormal . MPV (test code = 11.9 fL 9.8-13.0 83398-4) NRBC/100 WBC (test See_Comment [Automat ed code = 7375177652) message] The system which generated this result transmitted reference range : 0.0 - 10.0 /100 WBCs. The refer ence range was not u sed to interpret th is result as normal/abnormal . NRBC x10^3 (test code See_Comment [Auto mated = 4275487527) message] The s ystem which generated this result transmitted reference range : 10*3/?L. The reference range was not used to interpret this result as normal/abnormal . GRAN MAT (NEUT) % 79.2 % (test code = 770-8) IMM GRAN % (test code 1.00 % = 6601304783) LYMPH % (test code = 11.4 % 736-9) MONO % (test code = 5.1 % 5905-5) EOS % (test code = 3.1 % 713-8) BASO % (test code = 0.2 % 706-2) GRAN MAT x10^3(ANC) 9.08 10*3/uL 1.99-6.95 H (test code = 7024390527) IMM GRAN x10^3 (test 0.12 10*3/uL 0.00-0.06 H code = 2426177297) LYMPH x10^3 (test code 1.31 10*3/uL 1.09-3.23 = 731-0) MONO x10^3 (test code 0.58 10*3/uL 0.36-1.02 = 742-7) EOS x10^3 (test code = 0.36 10*3/uL 0.06-0.53 711-2) BASO x10^3 (test code <0.03 0.01-0.09 = 704-7) Lab Interpretation Abnormal (test code = 18755-5) [facility] CenterPOTX GLUCOSE (AUTOMATED)2020-07-06 09:24:00 Test Item Value Reference Range Interpretation Comments POCT GLU (test code = 2985800177) 147 mg/dL 70-110 H Lab Interpretation (test code = Abnormal 19032-8) [facility] CenterLaoric Acid Whole [id number] 09:19:03 Test Item Value Reference Range Interpretation Comments LACTIC ACID (test code = 1.53 mmol/L 0.50-2.20 0471944997) Lab Interpretation (test code = Normal 64936-1) [facility] CenterVancomycin Random [id number] 07:10:24 Test Item Value Reference Range Interpretation Comments VANCO RANDOM (test code = 34.7 ug/mL 7771840333) [facility] CenterVancomycin Random [id number] 07:10:24 Test Item Value Reference Range Interpretation Comments VANCO RANDOM (test code = 34.7 ug/mL 9505841753) [facility] CenteraPTT (for use with Heparin Drip)2020-07-06 05:40:45 Test Item Value Reference Range Interpretation Comments APTT Patient (test code See_Comment H [Au tomated message] = 3173-2) The system [employer] generated this result transmitted ref erence range: 26 - 36 Seconds. The reference range was not used to int erpret this result as normal/abnormal . Lab Interpretation (test Abnormal code = 60329-3) [facility] GLUCOSE (AUTOMATED)2020-07-06 05:30:50 Test Item Value Reference Range Interpretation Comments POCT GLU (test code = 4608898962) 160 mg/dL 70-110 H Lab Interpretation (test code = Abnormal 50272-4) [facility] GLUCOSE (AUTOMATED)2020-07-06 00:47:23 Test Item Value Reference Range Interpretation Comments POCT GLU (test code = 8839345897) 131 mg/dL 70-110 H Lab Interpretation (test code = Abnormal 71403-6) [facility] CenterBASIC METABOLIC PANEL (NA, K, CL, CO2, GLUCOSE, BUN, CREATININE, CA)2020-07-06 00:35:58 Test Item Value Reference Range Interpretation Comments NA (test code = 143 mmol/L 135-145 2677139061) K (test code = 3.6 mmol/L 3.5-5.0 9707786726) CL (test code = 94 mmol/L 98-108 L 4376104102) CO2 TOTAL (test code = 40 mmol/L 23-31 H 0549491402) AGAP (test code = 2-16 0016524789) BUN (test code = 48 mg/dL 7-23 H 0151279113) GLUCOSE (test code = 133 mg/dL 70-110 H 9155223748) CREATININE (test code = 1.29 mg/dL 0.60-1.25 H 6426085943) CALCIUM (test code = 8.7 mg/dL 8.6-10.6 8067625316) eGFR (test code = mL/min/1.73m2 8441820510) MEG (test code = MEG) Association of Glomerular Filtration Rate (GFR) and Staging of Kidney Disease* + --+ --+ ------+| GFR (mL/min/1.73 m2) ?| With Kidney Damage ?| ?Without Kidney Damage+ --------+ --------+ +| ?>90 ?| ?Stage one ?| ? Normal ?+ ---+ ---+ -------+| ?60-89 ?| ?Stage two ?| ? Decreased GFR ? + --+ --+ ------+| ?30-59 ?| ?Stage three ?| ? Stage three ? + --+ --+ ------+| ?15-29 ?| ?Stage four ? | ? Stage four ?+ ---+ ---+ -------+| ?<15 (or dialysis) ? ?| ?Stage five ? | ? Stage five ?+ ---+ ---+ -------+ *Each stage assumes the associated GFR level has been in effect for at least three months. ?Stages 1 to 5, with or without kidney disease, indicate chronic kidney disease. Notes: Determination of stages one and two (with eGFR >59mL/min/1.73 m2) requires estimation of kidney damage for at least three months as defined by structural or functional abnormalities of the kidney, manifested by either:Pathological abnormalities or Markers of kidney damage (including abnormalities in the composition of the blood or urine or abnormalities in imaging tests). Lab Interpretation Abnormal (test code = 13422-6) [facility] CenterCT ABDOMEN PELVIS W [id number] 00:04:03Impression: 1. ?Cirrhosis with portal hypertension and splenomegaly. No focal hepaticlesions are seen. 2. ?Atherosclerotic disease with near complete narrowing at the level ofthe aortic bifurcation andocclusive disease involving bilateral externaliliac arteries with reconstitution at the level of thecommon femoralarteries. 3. ?A large amount of stool in the colon and rectum suggests constipation.Bilateral small pleural effusions and lower lobe atelectasis. 4. ?Heterogenous attenuation of the gallbladder suggests cholelithiasis.Recommend right upper quadrant ultrasound to evaluate further.Exam: CTABDOMEN PELVIS W CONTRAST Clinical History: abdominal pain, fever, concern for infection Comparison:None Findings: The visualized lung bases show bilateral small pleural effusions and lowerlobe atelectasis. The liver shows no focal lesions or ductal dilatation. There is minimallynodular contour of the liver suggestive of cirrhosis. Gallbladder showsheterogenous attenuation. The kidneys, adrenals, and the pancreas arewithin normal limits. The spleen is enlarged and measures about 14 cm incraniocaudal dimension. No focal lesions are seen. There is no evidence of free fluid, air, or lymphadenopathy seen in theabdomen and pelvis. No evidence of dilated bowel loops, diverticulitis, orappendicitis. A large amount of stool in the colon and the rectum suggestsconstipation. A Dobbhoff tube is seen with its tip in the distal stomach.Urinary bladder is collapsed around a Adkins catheter. Prostate isunremarkable. Abdominal wall is within normal limits. 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 Occlusive disease involving b ilateral common iliacarteries and reconstitution of flow is seen at the level of bilateralcommon femoral arteries with patent bilateral superficial and deep femoralarteries. The main portal vein is enlarged and measures about 2 cm indiameter. The bones show degenerative changes with no suspicious focallesions. [facility], Radiant Results Inft User - 07/05/2020 7:05 PM CDTExam: CT ABDOMEN PELVIS W CONTRASTClinical History: abdominal pain, fever, concern for infection Comparison: NoneFindings: The visualized lung bases show bilateral small pleural effusions and lowerlobe atelectasis.The liver shows no focal lesions or ductal dilatation. There is minimallynodular contour of the liver suggestive of cirrhosis. Gallbladder showsheterogenous attenuation. The kidneys, adrenals, and the pancreas arewithin normal limits. The spleen is enlarged and measures about 14 cm incraniocaudal dimension. No focal lesions are seen.There is no evidence of free fluid, air, or lymphadenopathy seen in theabdomen and pelvis. No evidence of dilated bowel loops, diverticulitis, orappendicitis. A large amount of stool in the colon and the rectum suggestsconstipation. A Dobbhoff tube is seen with its tip in the distal stomach.Urinary bladder is collapsed around a Adkins catheter. Prostate isunremarkable.Abdominal wall is within normal limits. 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 Occlusive disease involving bilateral common iliacarteries and reconstitution of flow is seen at the level of bilateralcommon femoral arteries with patent bilateral superficial and deep femoralarteries. The main portal vein is enlarged and measures about 2 cm ind iameter. The bones show degenerative changes with no suspicious focallesions.IMPRESSIONImpression: 1. Cirrhosis with portal hypertension and splenomegaly. No focal hepaticlesions are seen.2. Atherosclerotic disease with near complete narrowing at the level ofthe aortic bifurcation and occlusive disease involving bilateral externaliliac arteries with reconstitution at the level of the common femoralarteries.3. A large amount of stool in the colon and rectum suggests constipation.Bilateral small pleural effusions and lower lobe atelectasis.4. Heterogenous attenuation of the gallbladder suggests cholel ithiasis.Recommend right upper quadrant ultrasound to evaluate further. [facility] ABDOMEN PELVIS W [id number] 00:04:03Impression: 1. ?Cirrhosis with portal hypertension and splenomegaly. No focal hepaticlesions are seen. 2. ?Atherosclerotic disease with near complete narrowing at the level ofthe aortic bifurcation andocclusive disease involving bilateral externaliliac arteries with reconstitution at the level of thecommon femoralarteries. 3. ?A large amount of stool in the colon and rectum suggests constipation.Bilateral small pleural effusions and lower lobe atelectasis. 4. ?Heterogenous attenuation of the gallbladder suggests cholelithiasis.Recommend right upper quadrant ultrasound to evaluate further.Exam: CTABDOMEN PELVIS W CONTRAST Clinical History: abdominal pain, fever, concern for infection Comparison:None Findings: The visualized lung bases show bilateral small pleural effusions and lowerlobe atelectasis. The liver shows no focal lesions or ductal dilatation. There is minimallynodular contour of the liver suggestive of cirrhosis. Gallbladder showsheterogenous attenuation. The kidneys, adrenals, and the pancreas arewithin normal limits. The spleen is enlarged and measures about 14 cm incraniocaudal dimension. No focal lesions are seen. There is no evidence of free fluid, air, or lymphadenopathy seen in theabdomen and pelvis. No evidence of dilated bowel loops, diverticulitis, orappendicitis. A large amount of stool in the colon and the rectum suggestsconstipation. A Dobbhoff tube is seen with its tip in the distal stomach.Urinary bladder is collapsed around a Adkins catheter. Prostate isunremarkable. Abdominal wall is within normal limits. 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 Occlusive disease involving b ilateral common iliacarteries and reconstitution of flow is seen at the level of bilateralcommon femoral arteries with patent bilateral superficial and deep femoralarteries. The main portal vein is enlarged and measures about 2 cm indiameter. The bones show degenerative changes with no suspicious focallesions. [facility], Radiant Results Inft User - 07/05/2020 7:05 PM CDTExam: CT ABDOMEN PELVIS W CONTRASTClinical History: abdominal pain, fever, concern for infection Comparison: NoneFindings: The visualized lung bases show bilateral small pleural effusions and lowerlobe atelectasis.The liver shows no focal lesions or ductal dilatation. There is minimallynodular contour of the liver suggestive of cirrhosis. Gallbladder showsheterogenous attenuation. The kidneys, adrenals, and the pancreas arewithin normal limits. The spleen is enlarged and measures about 14 cm incraniocaudal dimension. No focal lesions are seen.There is no evidence of free fluid, air, or lymphadenopathy seen in theabdomen and pelvis. No evidence of dilated bowel loops, diverticulitis, orappendicitis. A large amount of stool in the colon and the rectum suggestsconstipation. A Dobbhoff tube is seen with its tip in the distal stomach.Urinary bladder is collapsed around a Adkins catheter. Prostate isunremarkable.Abdominal wall is within normal limits. 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 Occlusive disease involving bilateral common iliacarteries and reconstitution of flow is seen at the level of bilateralcommon femoral arteries with patent bilateral superficial and deep femoralarteries. The main portal vein is enlarged and measures about 2 cm ind iameter. The bones show degenerative changes with no suspicious focallesions.IMPRESSIONImpression: 1. Cirrhosis with portal hypertension and splenomegaly. No focal hepaticlesions are seen.2. Atherosclerotic disease with near complete narrowing at the level ofthe aortic bifurcation and occlusive disease involving bilateral externaliliac arteries with reconstitution at the level of the common femoralarteries.3. A large amount of stool in the colon and rectum suggests constipation.Bilateral small pleural effusions and lower lobe atelectasis.4. Heterogenous attenuation of the gallbladder suggests cholel ithiasis.Recommend right upper quadrant ultrasound to evaluate further. [facility]CT HEAD W [id number] 22:51:48 No acute intracranial abnormality; specifically, no evidence ofintracranial infection Nonspecific small mastoid effusions and chronic right sphenoid sinusitis CT HEAD W CONTRAST HISTORY: Male 64 yearsAMS, concern for infection COMPARISON: None TECHNIQUE: Routine contrast enhanced CT head FINDINGS: The ventricles and cerebral sulci are normal in caliber and configuration.No hydrocephalus, midline shift or pathological extra-axial fluidcollection is present. The basal cisterns are unremarkable. Evaluation for subtle intracranial hemorrhage is limited due to thepresence of contrast. However, no overt acute intracranial hemorrhage ormass effect is present. The negro-white matter differentiation is preserved.No parenchymal attenuation abnormality is present. No focus of abnormalparenchymal enhancement is present. Small mastoid effusions are noted. The right sphenoid sinus is opacifiedand there is dense, osseous thickening of the sinus leija. The remainingparanasal air sinuses are clear. [facility], Radiant Results Inft User - 07/05/2020 5:53 PM CDTCT HEAD W CONTRASTHISTORY: Male 64 years AMS, concern for infection COMPARISON: NoneTECHNIQUE: Routine contrast enhanced CT headFINDINGS:The ventricles and cerebral sulci are normal in caliber and configuration.No hydrocephalus, midline shift or pathologicalextra-axial fluidcollection is present. The basal cisterns are unremarkable.Evaluation for subtle intracranial hemorrhage is limited due to thepresence of contrast. However, no overt acute intracranialhemorrhage ormass effect is present. The negro-white matter differentiation is preserved.No parenchymal attenuation abnormality is present. No focus of abnormalparenchymal enhancement is present.Small mastoid effusions are noted. The right sphenoid sinus is opacifiedand there is dense, osseous thickening of the sinus leija. The remainingparanasal air sinuses are clear.IMPRESSIONNo acute intracranial ab normality; specifically, no evidence ofintracranial infectionNonspecific small mastoid effusions andchronic right sphenoid sinusitisUnPalestine Regional Medical CenterCT HEAD W [id number] 22:51:48 No acute intracranial abnormality; specifically, no evidence ofintracranial infection Nonspecific small mastoid effusions and chronic right sphenoid sinusitis CT HEAD W CONTRAST HISTORY: Male 64 yearsAMS, concern for infection COMPARISON: None TECHNIQUE: Routine contrast enhanced CT head FINDINGS: The ventricles and cerebral sulci are normal in caliber and configuration.No hydrocephalus, midline shift or pathological extra- axial fluidcollection is present. The basal cisterns are unremarkable. Evalu ation for subtle intracranial hemorrhage is limited due to thepresence of contrast. However, no overt acute intracranial hemorrhage ormass effect is present. The negro-white matter differentiation is preserved.No parenchymal attenuation abnormality is present. No focus of abnormalparenchymal enhancement is present. Small mastoid effusions are noted. The right sphenoid sinus is opacifiedand there is dense, osseous thickening of the sinus leija. The remainingparanasal air sinuses are clear. [facility], Radiant Results Inft User - 07/05/2020 5:53 PM CDTCT HEAD W CONTRASTHISTORY: Male 64 years AMS, concern for infection COMPARISON: NoneTECHNIQUE: Routine contrast enhanced CT headFINDINGS:The ventricles and cerebral sulci are normal in caliber and configuration.No hydrocephalus, midline shift or pathologicalextra-axial fluidcollection is present. The basal cisterns are unremarkable.Evaluation for subtle intracranial hemorrhage is limited due to thepresence of contrast. However, no overt acute intracranialhemorrhage ormass effect is present. The negro-white matter differentiation is preserved.No parenchymal attenuation abnormality is present. No focus of abnormalparenchymal enhancement is present.Small mastoid effusions are noted. The right sphenoid sinus is opacifiedand there is dense, osseous thickening of the sinus leija. The remainingparanasal air sinuses are clear.IMPRESSIONNo acute intracranial ab normality; specifically, no evidence ofintracranial infectionNonspecific small mastoid effusions andchronic right sphenoid sinusitisUnPalestine Regional Medical CenteraPTT (for use with Heparin Drip)2020-07-05 21:40:57 Test Item Value Reference Range Interpretation Comments APTT Patient (test code See_Comment H [Au tomated message] = 3173-2) The system [employer] generated this result transmitted ref erence range: 26 - 36 Seconds. The reference range was not used to int erpret this result as normal/abnormal . Lab Interpretation (test Abnormal code = 35311-4) [facility]2020-07-05 20:42:08 Test Item Value Reference Range Interpretation Comments POCT GLU (test code = 9860031196) 134 mg/dL 70-110 H Lab Interpretation (test code = Abnormal 50814-8) [facility] CenterAb[facility] 1 View - To confirm Dobhoff / Small- bore (non-styleted) enteral feeding tube placement.2020-07-05 18:51:47 The Dobbhoff tube tip is located in the right mid abdomen, either in thedistal stomach or proximal duodenum. Preliminary Report Dictated by Resident: Jose Miguel Hylton MD., have reviewed this study and agree with the abovereport.EXAM: XR ABDOMEN 1 VW HISTORY: confirm tube placement COMPARISON: 06/20/2020 radiograph FINDINGS: The Dobbhoff tube tip is located in the right mid abdomen, either in thedistal stomach or proximal duodenum. The visualized bowel gas pattern is normal without luminal distention orevidence of obstruction. A normal volume of mixed stool and gas is in thecolon. No radiopaque renal stones or acute osseous abnormalities aredetected. Scattered vascular complications identified. [facility], Radiant Results Inft User - 07/05/2020 1:52 PM CDTEXAM: XR ABDOMEN 1 VWHISTORY: confirm tube placement COMPARISON: 06/20/2020 radiographFINDINGS:The Dobbhoff tube tip is located in the right mid abdomen, either in thedistal stomach or proximal duodenum.The visualized bowel gas pattern is normal without luminal distention orevidence of obstruction. A normal volume of mixed stool and gas is in thecolon. No radiopaque renal stones or acute osseous abnormalities aredetected. Scattered vascular complications identified.IMPRESSIONThe Dobbhoff tube tip is located in the right mid abdomen, either in thedistal stomach or proximal duodenum.Preliminary Report Dictated by Resident: Jose Miguel Yang MD., have reviewed this study and agree with the abovereport.[facility] Center[facility] - To confirm Dobhoff / Small-bore (non-styleted) enteral feeding tube placement. 2020-07-05 18:51:47 The Dobbhoff tube tip is located in the right mid abdomen, either in thedistal stomach or proximal duodenum. Preliminary Report Dictated by Resident: Jose Miguel Hylton MD., have reviewed this study and agree with the abovereport.EXAM: XR ABDOMEN 1 VW HISTORY: confirm tube placement COMPARISON: 06/20/2020 radiograph FINDINGS: The Dobbhoff tube tip is located in the right mid abdomen, either in thedistal stomach or proximal duodenum. The visualized bowel gas pattern is normal without luminal distention orevidence of obstruction. A normal volume of mixed stool and gas is in thecolon. No radiopaque renal stones or acute osseous abnormalities aredetected. Scattered vascular complications identified. [facility], Radiant Results Inft User - 07/05/2020 1:52 PM CDTEXAM: XR ABDOMEN 1 VWHISTORY: confirm tube placement COMPARISON: 06/20/2020 radiographFINDINGS:The Dobbhoff tube tip is located in the right mid abdomen, either in thedistal stomach or proximal duodenum.The visualized bowel gas pattern is normal without luminal distention orevidence of obstruction. A normal volume of mixed stool and gas is in thecolon. No radiopaque renal stones or acute osseous abnormalities aredetected. Scattered vascular complications identified.IMPRESSIONThe Dobbhoff tube tip is located in the right mid abdomen, either in thedistal stomach or proximal duodenum.Preliminary Report Dictated by Resident: Jose Miguel Yang MD., have reviewed this study and agree with the abovereport.[facility] CenterBLOOD CULTURE [id number] 18:01:36 Test Item Value Reference Range Interpretation Comments Blood Culture-Aerobic No organisms No growth Previo us (test code = 48126-9) isolated prelim inary verified result was Culture In Progress on 06/30/2020 at 16 01 CDTPrevious preliminary verified result was No growth a t 24 hours on 07/01/2020 at 13 01 CDTPrevious preliminary verified result was No growth a t 48 hours on 07/02/2020 at 13 CDTPrevious preliminary verified result was No growth a t 72 hours on 07/03/2020 at 13 01 CDT Blood No organisms No growth Previous Culture-Anaerobic isolated preliminar y (test code = 25686-4) verifi ed result was Culture In Progress on 06/30/2020 at 16 CDTPrevious preliminary verified result was No growth a t 24 hours on 07/01/2020 at 13 CDTPrevious preliminary verified result was No growth a t 48 hours on 07/02/2020 at 13 CDTPrevious preliminary verified result was No growth a t 72 hours on 07/03/2020 at 13 CDT Lab Interpretation Normal (test code = 09187-4) [facility] CULTURE [id number] 18:01:36 Test Item Value Reference Range Interpretation Comments Blood Culture-Aerobic No organisms No growth Previo us (test code = 61811-7) isolated prelim inary verified result was Culture In Progress on 06/30/2020 at CDTPrevious preliminary verified result was No growth a t 24 hours on 07/01/2020 at 13 CDTPrevious preliminary verified result was No growth a t 48 hours on 07/02/2020 at CDTPrevious preliminary verified result was No growth a t 72 hours on 07/03/2020 at 13 CDT Blood No organisms No growth Previous Culture-Anaerobic isolated preliminar y (test code = 14617-9) verifi ed result was Culture In Progress on 06/30/2020 at 16 CDTPrevious preliminary verified result was No growth a t 24 hours on 07/01/2020 at 13 CDTPrevious preliminary verified result was No growth a t 48 hours on 07/02/2020 at 13 CDTPrevious preliminary verified result was No growth a t 72 hours on 07/03/2020 at 13 CDT Lab Interpretation Normal (test code = 30668-7) [facility] CULTURE [id number] 18:01:36 Test Item Value Reference Range Interpretation Comments Blood Culture-Aerobic No organisms No growth Previo us (test code = 56527-4) isolated prelim inary verified result was Culture In Progress on 06/30/2020 at 16 01 CDTPrevious preliminary verified result was No growth a t 24 hours on 07/01/2020 at 13 01 CDTPrevious preliminary verified result was No growth a t 48 hours on 07/02/2020 at 13 01 CDTPrevious preliminary verified result was No growth a t 72 hours on 07/03/2020 at 13 01 CDT Blood No organisms No growth Previous Culture-Anaerobic isolated preliminar y (test code = 25275-9) verifi ed result was Culture In Progress on 06/30/2020 at 16 01 CDTPrevious preliminary verified result was No growth a t 24 hours on 07/01/2020 at 13 01 CDTPrevious preliminary verified result was No growth a t 48 hours on 07/02/2020 at 13 CDTPrevious preliminary verified result was No growth a t 72 hours on 07/03/2020 at 13 01 CDT Lab Interpretation Normal (test code = 06357-4) [facility]PO[facility]AUT[facility]ATED[facility]2020-07-05 16:53:06 Test Item Value Reference Range Interpretation Comments POCT GLU (test code = 1808307532) 175 mg/dL 70-110 H Lab Interpretation (test code = Abnormal 69328-5) [facility] CenterXR [id number] 16:18:21EXAM: XR KUB HISTORY: clear ng tube COMPARISON: None. FINDINGS: The tip of the Dobbhoff tube is in the distal part of the stomach or firstportion of the duodenum. ? [facility], Radiant Results Inft User - 07/05/2020 11:19 AM CDTEXAM: XR KUBHISTORY: clear ng tube COMPARISON: None.FINDINGS:The tip of the Dobbhoff tube is in the distal part of the stomach or firstportion of the duodenum.[facility] CenterAC PANEL 20 + LACTIC [id number] 15:48:33 Test Item Value Reference Range Interpretation Comments PH (test code = 2) 7.35-7.45 H PCO2 (test code = See_Comment H [Automate d 3332123534) message] The sy stem which generated this result transmitted reference range : 35 - 45 mmHg. The reference range was not used to interpret this result as normal/abnormal . PO2 (test code = See_Comment L [Automated 4681772910) message] The sy stem which generated this result transmitted reference range : 80 - 100 mmHg. The reference range was not used to interpret this result as normal/abnormal . HCO3 (test code = See_Comment H [Automate d 1181899020) message] The sy stem which generated this result transmitted reference range : 22 - 26 mEq/L. The reference range was not used to interpret this result as normal/abnormal . BE (test code = See_Comment H [Automated 3012893971) message] The sy stem which generated this result transmitted reference range : -3.0 - 3.0 mEq/ L. The reference r delano was not used to interpret this result as normal/abnormal . THB (test code = 9.4 g/dL 13.5-18.0 L 8295466099) %O2HB (test code = 91.4 % 94.0-99.0 L 0334527245) %COHB ART (test code = 0.2 % 0.0-1.5 4228368312) %METHB ART (test code = 0.2 % 0.4-1.5 L 2837284887) VOL%O2 ART (test code = 12.1 % 15.0-23.0 L 7244994222) NA (test code = 139 mmol/L 135-145 0042636657) K+ (test code = 4.3 mmol/L 3.5-5.0 1380482131) AC CA IONZ (test code = 4.40 mg/dL 4.50-5.30 L 6954524591) GLUCOSE (test code = 144 mg/dL 70-110 H 0201074081) LACTIC ACID (test code 1.06 mmol/L 0.50-2.20 = 6638473614) Lab Interpretation Abnormal (test code = 18010-7) [facility]AC PAN[facility] 21 + LACTIC [id number] 13:45:14 Test Item Value Reference Range Interpretation Comments PH (test code = 7.32-7.42 H 4095986671) PCO2 CLAUDINE (test code = See_Comment H [Auto mated 2704079584) message] The sy stem which generated this result transmitted reference range : 41 - 51 mmHg. The reference range was not used to interpret this result as normal/abnormal . PO2 CLAUDINE (test code = See_Comment [Autom ated 9028063375) message] The sy stem which generated this result transmitted reference range : 25 - 40 mmHg. The reference range was not used to interpret this result as normal/abnormal . HCO3 CLAUDINE (test code = See_Comment H [Auto mated 6729770611) message] The sy stem which generated this result transmitted reference range : 24 - 28 mEq/L. The reference range was not used to interpret this result as normal/abnormal . AC VBE(BEAKER) (test mEq/L code = 7756523575) THB CLAUDINE (test code = 9.6 g/dL 13.5-18.0 L 8907403061) %O2HB CLAUDINE (test code = 58.4 % 52.0-63.0 7217472671) %COHB CLAUDINE (test code = 0.3 % 0.0-1.5 2289446005) %METHB CLAUDINE (test code = 0.3 % 0.4-1.5 L 4871848769) VOL%O2 CLAUDINE (test code = 7.9 % 6.0-12.0 9894291614) NA (test code = 136 mmol/L 135-145 6574135637) K+ (test code = 3.5 mmol/L 3.5-5.0 6799886171) AC CA IONZ (test code = 4.20 mg/dL 4.50-5.30 L 4895768995) GLUCOSE (test code = 166 mg/dL 70-110 H 8006968586) LACTIC ACID (test code 0.97 mmol/L 0.50-2.20 = 0158241001) Lab Interpretation Abnormal (test code = 76063-8) [facility] 21 + LACTIC [id number] 13:45:14 Test Item Value Reference Range Interpretation Comments PH (test code = 7.32-7.42 H 6342108530) PCO2 CLAUDINE (test code = See_Comment H [Auto mated 5798350003) message] The sy stem which generated this result transmitted reference range : 41 - 51 mmHg. The reference range was not used to interpret this result as normal/abnormal . PO2 CLAUDINE (test code = See_Comment [Autom ated 1865992378) message] The sy stem which generated this result transmitted reference range : 25 - 40 mmHg. The reference range was not used to interpret this result as normal/abnormal . HCO3 CLAUDINE (test code = See_Comment H [Auto mated 4215094859) message] The sy stem which generated this result transmitted reference range : 24 - 28 mEq/L. The reference range was not used to interpret this result as normal/abnormal . AC VBE(BEAKER) (test mEq/L code = 3317067220) THB CLAUDINE (test code = 9.6 g/dL 13.5-18.0 L 5131177687) %O2HB CLAUDINE (test code = 58.4 % 52.0-63.0 7456300399) %COHB CLAUDINE (test code = 0.3 % 0.0-1.5 8408704644) %METHB CLAUDINE (test code = 0.3 % 0.4-1.5 L 7782085573) VOL%O2 CLAUDINE (test code = 7.9 % 6.0-12.0 8707506996) NA (test code = 136 mmol/L 135-145 1578987852) K+ (test code = 3.5 mmol/L 3.5-5.0 0732321057) AC CA IONZ (test code = 4.20 mg/dL 4.50-5.30 L 3212649004) GLUCOSE (test code = 166 mg/dL 70-110 H 8923982279) LACTIC ACID (test code 0.97 mmol/L 0.50-2.20 = 2662534470) Lab Interpretation Abnormal (test code = 06848-9) [facility] CenterPOT[facility] GLU[facility] (AUTOMATED)2020-07-05 13:07:41 Test Item Value Reference Range Interpretation Comments POCT GLU (test code = 8116288436) 124 mg/dL 70-110 H Lab Interpretation (test code = Abnormal 30112-1) [facility] METABOLIC PANEL (NA, K, CL, CO2, GLUCOSE, BUN, CREATININE, CA)2020-07-05 09:54:00 Test Item Value Reference Range Interpretation Comments NA (test code = 140 mmol/L 135-145 6360990226) K (test code = 3.2 mmol/L 3.5-5.0 L 1371776660) CL (test code = 90 mmol/L 98-108 L 8685182292) CO2 TOTAL (test code = 41 mmol/L 23-31 H 8302479364) AGAP (test code = 2-16 1647369505) BUN (test code = 48 mg/dL 7-23 H 8280640676) GLUCOSE (test code = 149 mg/dL 70-110 H 4271671448) CREATININE (test code = 1.24 mg/dL 0.60-1.25 2894994374) CALCIUM (test code = 9.1 mg/dL 8.6-10.6 2487912879) eGFR (test code = mL/min/1.73m2 5129185327) MEG (test code = MEG) Association of Glomerular Filtration Rate (GFR) and Staging of Kidney Disease* + --+ --+ ------+| GFR (mL/min/1.73 m2) ?| With Kidney Damage ?| ?Without Kidney Damage+ --------+ --------+ +| ?>90 ?| ?Stage one ?| ? Normal ?+ ---+ ---+ -------+| ?60-89 ?| ?Stage two ?| ? Decreased GFR ? + --+ --+ ------+| ?30-59 ?| ?Stage three ?| ? Stage three ? + --+ --+ ------+| ?15-29 ?| ?Stage four ? | ? Stage four ?+ ---+ ---+ -------+| ?<15 (or dialysis) ? ?| ?Stage five ? | ? Stage five ?+ ---+ ---+ -------+ *Each stage assumes the associated GFR level has been in effect for at least three months. ?Stages 1 to 5, with or without kidney disease, indicate chronic kidney disease. Notes: Determination of stages one and two (with eGFR >59mL/min/1.73 m2) requires estimation of kidney damage for at least three months as defined by structural or functional abnormalities of the kidney, manifested by either:Pathological abnormalities or Markers of kidney damage (including abnormalities in the composition of the blood or urine or abnormalities in imaging tests). Lab Interpretation Abnormal (test code = 21916-5) [facility] CenterMAGNESIUM2021-04-02 09:42:16 Test Item Value Reference Range Interpretation Comments MAGNESIUM (test code = 0169408387) 2.4 mg/dL 1.7-2.4 Lab Interpretation (test code = Normal 08273-6) [facility]eraP[facility] (for use with Heparin Drip)2020-07-05 09:39:49 Test Item Value Reference Range Interpretation Comments APTT Patient (test code See_Comment H [Au tomated message] = 3173-2) The system [employer] generated this result transmitted ref erence range: 26 - 36 Seconds. The reference range was not used to int erpret this result as normal/abnormal . Lab Interpretation (test Abnormal code = 74664-9) [facility] WITH [id number] 09:02:48 Test Item Value Reference Range Interpretation Comments WBC (test code = See_Comment H [Automated 6690-2) message] The system which generated this result transmit glo reference range : 4.20 - 10.70 10*3/?L. The reference range was not used to interpret this result as normal/abnormal . RBC (test code = See_Comment L [Automated 789-8) message] The system which generated this result transmit glo reference range : 4.26 - 5.52 10*6/?L. The reference range was not used to interpret this result as normal/abnormal . HGB (test code = 8.7 g/dL 12.2-16.4 L 718-7) HCT (test code = 30.3 % 38.4-49.3 L 4544-3) MCV (test code = 91.3 fL 81.7-95.6 787-2) MCH (test code = 26.2 pg 26.1-32.7 785-6) MCHC (test code = 28.7 g/dL 31.2-35.0 L 786-4) RDW-SD (test code = 66.2 fL 38.5-51.6 H 08688-9) RDW-CV (test code = 21.5 % 12.1-15.4 H 788-0) PLT (test code = See_Comment [Automated 777-3) message] The system which generated this result transmit glo reference range : 150 - 328 10*3/ ?L. The reference range was not u sed to interpret th is result as normal/abnormal . MPV (test code = 12.1 fL 9.8-13.0 55875-6) NRBC/100 WBC (test See_Comment [Automat ed code = 3625598595) message] The system which generated this result transmit glo reference range : 0.0 - 10.0 /100 WBCs. The reference range was not used to interpret this result as normal/abnormal . NRBC x10^3 (test code See_Comment [Auto mated = 7738487305) message] The system which generated this result transmit glo reference range : 10*3/?L. The reference range was not used to interpret this result as normal/abnormal . GRAN MAT (NEUT) % 80.2 % (test code = 770-8) IMM GRAN % (test code 1.20 % = 3598599168) LYMPH % (test code = 10.9 % 736-9) MONO % (test code = 5.6 % 5905-5) EOS % (test code = 1.9 % 713-8) BASO % (test code = 0.2 % 706-2) GRAN MAT x10^3(ANC) 10.74 10*3/uL 1.99-6.95 H (test code = 3288600391) IMM GRAN x10^3 (test 0.16 10*3/uL 0.00-0.06 H code = 0789860066) LYMPH x10^3 (test code 1.46 10*3/uL 1.09-3.23 = 731-0) MONO x10^3 (test code 0.75 10*3/uL 0.36-1.02 = 742-7) EOS x10^3 (test code = 0.26 10*3/uL 0.06-0.53 711-2) BASO x10^3 (test code 0.03 10*3/uL 0.01-0.09 = 704-7) Lab Interpretation Abnormal (test code = 03784-5) [facility]AUTOMATED)2020-07-05 08:36:45 Test Item Value Reference Range Interpretation Comments POCT GLU (test code = 8048249710) 161 mg/dL 70-110 H Lab Interpretation (test code = Abnormal 06959-6) [facility] CenterLaoric Acid Whole [id number] 08:34:34 Test Item Value Reference Range Interpretation Comments LACTIC ACID (test code = 1.36 mmol/L 0.50-2.20 5580798562) Lab Interpretation (test code = Normal 26594-2) [facility] CenterVancomycin Trough Level - Draw immediately prior to the NEXT dose, but, no more than 60 minutes before the NEXT dose. 2020-07-05 07:08:25 Test Item Value Reference Range Interpretation Comments VANCO TROUGH (test code 21.5 ug/mL 10.0-20.0 H = 3137158170) MEG (test code = MEG) Toxic Range: ?>20 ug/mL 15-20 ug/mL is recommended for severe infection or when Vancomycin LIAM is greater than or equal to 2. Lab Interpretation (test Abnormal code = 28042-3) [facility] GLUCOSE (AUTOMATED)2020-07-05 04:42:21 Test Item Value Reference Range Interpretation Comments POCT GLU (test code = 1325753044) 160 mg/dL 70-110 H Lab Interpretation (test code = Abnormal 49394-9) [facility] GLUCOSE (AUTOMATED)2020-07-05 00:46:41 Test Item Value Reference Range Interpretation Comments POCT GLU (test code = 5664949295) 129 mg/dL 70-110 H Lab Interpretation (test code = Abnormal 71652-4) [facility]BAL[facility]OL[facility] (NA, K, CL, CO2, GLUCOSE, BUN, CREATININE, CA)2020-07-04 22:06:21 Test Item Value Reference Range Interpretation Comments NA (test code = 142 mmol/L 135-145 4501571418) K (test code = 3.8 mmol/L 3.5-5.0 7507222760) CL (test code = 91 mmol/L 98-108 L 5539393385) CO2 TOTAL (test code = 44 mmol/L 23-31 H 7401373076) AGAP (test code = 2-16 6387577243) BUN (test code = 48 mg/dL 7-23 H 7105192189) GLUCOSE (test code = 125 mg/dL 70-110 H 3611039773) CREATININE (test code = 1.25 mg/dL 0.60-1.25 4021119546) CALCIUM (test code = 9.2 mg/dL 8.6-10.6 6282033768) eGFR (test code = mL/min/1.73m2 0349050837) MEG (test code = MEG) Association of Glomerular Filtration Rate (GFR) and Staging of Kidney Disease* + --+ --+ ------+| GFR (mL/min/1.73 m2) ?| With Kidney Damage ?| ?Without Kidney Damage+ --------+ --------+ +| ?>90 ?| ?Stage one ?| ? Normal ?+ ---+ ---+ -------+| ?60-89 ?| ?Stage two ?| ? Decreased GFR ? + --+ --+ ------+| ?30-59 ?| ?Stage three ?| ? Stage three ? + --+ --+ ------+| ?15-29 ?| ?Stage four ? | ? Stage four ?+ ---+ ---+ -------+| ?<15 (or dialysis) ? ?| ?Stage five ? | ? Stage five ?+ ---+ ---+ -------+ *Each stage assumes the associated GFR level has been in effect for at least three months. ?Stages 1 to 5, with or without kidney disease, indicate chronic kidney disease. Notes: Determination of stages one and two (with eGFR >59mL/min/1.73 m2) requires estimation of kidney damage for at least three months as defined by structural or functional abnormalities of the kidney, manifested by either:Pathological abnormalities or Markers of kidney damage (including abnormalities in the composition of the blood or urine or abnormalities in imaging tests). Lab Interpretation Abnormal (test code = 85526-7) [facility] (for use with Heparin Drip)2020-07-04 21:40:34 Test Item Value Reference Range Interpretation Comments APTT Patient (test code See_Comment H [Au tomated message] = 3173-2) The system [employer] generated this result transmitted ref erence range: 26 - 36 Seconds. The reference range was not used to int erpret this result as normal/abnormal . Lab Interpretation (test Abnormal code = 42663-6) [facility]PO[facility]AUT[facility]ATED)2020-07-04 21:18:11 Test Item Value Reference Range Interpretation Comments POCT GLU (test code = 0693036893) 120 mg/dL 70-110 H Lab Interpretation (test code = Abnormal 20218-9) [facility] CenterAC PANEL 21 + LACTIC [id number] 15:45:40 Test Item Value Reference Range Interpretation Comments PH (test code = 7.32-7.42 H 3617796829) PCO2 CLAUDINE (test code = See_Comment H [Auto mated 9235357267) message] The sy stem which generated this result transmitted reference range : 41 - 51 mmHg. The reference range was not used to interpret this result as normal/abnormal . PO2 CLAUDINE (test code = See_Comment HH [Autom ated 0551009022) message] The sy stem which generated this result transmitted reference range : 25 - 40 mmHg. The reference range was not used to interpret this result as normal/abnormal . HCO3 CLAUDINE (test code = See_Comment H [Auto mated 0592789609) message] The sy stem which generated this result transmitted reference range : 24 - 28 mEq/L. The reference range was not used to interpret this result as normal/abnormal . AC VBE(BEAKER) (test mEq/L code = 5724169704) THB CLAUDINE (test code = 8.0 g/dL 13.5-18.0 LL 7308561368) %O2HB CLAUDINE (test code = 88.6 % 52.0-63.0 H 4707647024) %COHB CLAUDINE (test code = 0.2 % 0.0-1.5 9842405714) %METHB CLAUDINE (test code = 0.2 % 0.4-1.5 L 4123718981) VOL%O2 CLAUDINE (test code = 10.0 % 6.0-12.0 3027327827) NA (test code = 137 mmol/L 135-145 4614822391) K+ (test code = 4.1 mmol/L 3.5-5.0 7440066019) AC CA IONZ (test code = 4.50 mg/dL 4.50-5.30 8080904976) GLUCOSE (test code = 119 mg/dL 70-110 H 2453219955) LACTIC ACID (test code 1.18 mmol/L 0.50-2.20 = 0685097069) Lab Interpretation Abnormal (test code = 62348-0) [facility] [id number] 13:39:31EXAM: XR CHEST 1 VW HISTORY: volume status, infection COMPARISON: None. FINDINGS: The tip of the endotracheal tube is at the level of the clavicles, anasogastric tube passes through the thorax and intothe stomach, and thetip of the right IJ line is in the superior vena cava the heart and greatvesselsare normal except for calcium in the arch of the aorta. Hilarvascular congestion and basilar pulmonary edema persist on both sides,perhaps a little more marked than noted previously. The upper lungs areclear. ? [facility], Radiant Results Inft User - 07/04/2020 8:40 AM CDTEXAM: XR CHEST 1 VWHISTORY: volume status, infection COMPARISON: None.FINDINGS:The tip of the endotracheal tube is at the level of the clavicles, anasogastric tube passes through the thorax and into the stomach, and thetip of the right IJ line is in the superior vena cava the heart and greatvessels are normal except for calcium in the arch of the aorta. Hilarvascular congestion and basilar pulmonary edema persist on both sides,perhaps a little more marked than noted previously. The upper lungs areclear.[facility] BASIC METABOLIC PANEL (NA, K, CL, CO2, GLUCOSE, BUN, CREATININE, CA)2020-07-04 10:09:54 Test Item Value Reference Range Interpretation Comments NA (test code = 142 mmol/L 135-145 0738782894) K (test code = 3.3 mmol/L 3.5-5.0 L 0813693810) CL (test code = 93 mmol/L 98-108 L 8323737277) CO2 TOTAL (test code = 42 mmol/L 23-31 H 8689919444) AGAP (test code = 2-16 5324602552) BUN (test code = 45 mg/dL 7-23 H 3762347378) GLUCOSE (test code = 125 mg/dL 70-110 H 7469407436) CREATININE (test code = 1.14 mg/dL 0.60-1.25 2501006762) CALCIUM (test code = 8.8 mg/dL 8.6-10.6 5125087922) eGFR (test code = mL/min/1.73m2 7167044915) eGFR Calculation mL/min/1.73m2 () (test code = 9080260904) MEG (test code = MEG) Association of Glomerular Filtration Rate (GFR) and Staging of Kidney Disease* + --+ --+ ------+| GFR (mL/min/1.73 m2) ?| With Kidney Damage ?| ?Without Kidney Damage+ --------+ --------+ +| ?>90 ?| ?Stage one ?| ? Normal ?+ ---+ ---+ -------+| ?60-89 ?| ?Stage two ?| ? Decreased GFR ? + --+ --+ ------+| ?30-59 ?| ?Stage three ?| ? Stage three ? + --+ --+ ------+| ?15-29 ?| ?Stage four ? | ? Stage four ?+ ---+ ---+ -------+| ?<15 (or dialysis) ? ?| ?Stage five ? | ? Stage five ?+ ---+ ---+ -------+ *Each stage assumes the associated GFR level has been in effect for at least three months. ?Stages 1 to 5, with or without kidney disease, indicate chronic kidney disease. Notes: Determination of stages one and two (with eGFR >59mL/min/1.73 m2) requires estimation of kidney damage for at least three months as defined by structural or functional abnormalities of the kidney, manifested by either:Pathological abnormalities or Markers of kidney damage (including abnormalities in the composition of the blood or urine or abnormalities in imaging tests). Lab Interpretation Abnormal (test code = 55639-5) [facility]UM2021-[facility] 09:48:45 Test Item Value Reference Range Interpretation Comments MAGNESIUM (test code = 0377133945) 1.8 mg/dL 1.7-2.4 Lab Interpretation (test code = Normal 07438-0) [facility] WITH [id number] 09:34:41 Test Item Value Reference Range Interpretation Comments WBC (test code = See_Comment H [Automated 8390-2) message] The sy stem which generated this result transmitted reference range : 4.20 - 10.70 10*3/?L. The reference range was not used to interpret this result as normal/abnormal . RBC (test code = See_Comment L [Automated 399-8) message] The sy stem which generated this result transmitted reference range : 4.26 - 5.52 10*6/?L. The reference range was not used to interpret this result as normal/abnormal . HGB (test code = 7.9 g/dL 12.2-16.4 L 718-7) HCT (test code = 27.1 % 38.4-49.3 L 4544-3) MCV (test code = 90.6 fL 81.7-95.6 787-2) MCH (test code = 26.4 pg 26.1-32.7 785-6) MCHC (test code = 29.2 g/dL 31.2-35.0 L 786-4) RDW-SD (test code = 66.3 fL 38.5-51.6 H 16588-5) RDW-CV (test code = 21.1 % 12.1-15.4 H 788-0) PLT (test code = See_Comment [Automated 777-3) message] The sy stem which generated this result transmitted reference range : 150 - 328 10*3/ ?L. The reference r delano was not used to interpret this result as normal/abnormal . MPV (test code = 11.8 fL 9.8-13.0 04665-7) NRBC/100 WBC (test See_Comment [Automat ed code = 8355077552) message] The system which generated this result transmitted reference range : 0.0 - 10.0 /100 WBCs. The refer ence range was not u sed to interpret th is result as normal/abnormal . NRBC x10^3 (test code See_Comment [Auto mated = 5645465321) message] The s ystem which generated this result transmitted reference range : 10*3/?L. The reference range was not used to interpret this result as normal/abnormal . GRAN MAT (NEUT) % 77.8 % (test code = 770-8) IMM GRAN % (test code 1.50 % = 6289154907) LYMPH % (test code = 13.9 % 736-9) MONO % (test code = 4.8 % 5905-5) EOS % (test code = 1.8 % 713-8) BASO % (test code = 0.2 % 706-2) GRAN MAT x10^3(ANC) 9.34 10*3/uL 1.99-6.95 H (test code = 8575759584) IMM GRAN x10^3 (test 0.18 10*3/uL 0.00-0.06 H code = 1375920452) LYMPH x10^3 (test code 1.66 10*3/uL 1.09-3.23 = 731-0) MONO x10^3 (test code 0.57 10*3/uL 0.36-1.02 = 742-7) EOS x10^3 (test code = 0.21 10*3/uL 0.06-0.53 711-2) BASO x10^3 (test code <0.03 0.01-0.09 = 704-7) Lab Interpretation Abnormal (test code = 94405-2) [facility] (for use with Heparin Drip)2020-07-04 09:32:05 Test Item Value Reference Range Interpretation Comments APTT Patient (test code See_Comment H [Au tomated message] = 3173-2) The system [employer] generated this result transmitted ref erence range: 26 - 36 Seconds. The reference range was not used to int erpret this result as normal/abnormal . Lab Interpretation (test Abnormal code = 65897-4) [facility] + LACTIC [id number] 09:16:25 Test Item Value Reference Range Interpretation Comments PH (test code = 7.32-7.42 H 2256653066) PCO2 CLAUDINE (test code = See_Comment H [Auto mated 6975597437) message] The sy stem which generated this result transmitted reference range : 41 - 51 mmHg. The reference range was not used to interpret this result as normal/abnormal . PO2 CLAUDINE (test code = See_Comment HH [Autom ated 3467689122) message] The sy stem which generated this result transmitted reference range : 25 - 40 mmHg. The reference range was not used to interpret this result as normal/abnormal . HCO3 CLAUDINE (test code = See_Comment H [Auto mated 1634113421) message] The sy stem which generated this result transmitted reference range : 24 - 28 mEq/L. The reference range was not used to interpret this result as normal/abnormal . AC VBE(BEAKER) (test mEq/L code = 4229524849) THB CLAUDINE (test code = 8.5 g/dL 13.5-18.0 L 5450962611) %O2HB CLAUDINE (test code = 87.2 % 52.0-63.0 H 4457128911) %COHB CLAUDINE (test code = 0.5 % 0.0-1.5 2244768152) %METHB CLAUDINE (test code = 0.1 % 0.4-1.5 L 4646740761) VOL%O2 CLAUDINE (test code = 10.5 % 6.0-12.0 2525599964) NA (test code = 137 mmol/L 135-145 2437939665) K+ (test code = 3.3 mmol/L 3.5-5.0 L 5781087650) AC CA IONZ (test code = 4.30 mg/dL 4.50-5.30 L 8935152117) GLUCOSE (test code = 120 mg/dL 70-110 H 2579690068) LACTIC ACID (test code 1.18 mmol/L 0.50-2.20 = 6366302015) Lab Interpretation Abnormal (test code = 94756-0) [facility] GLUCOSE (AUTOMATED)2020-07-04 09:04:48 Test Item Value Reference Range Interpretation Comments POCT GLU (test code = 0630898758) 155 mg/dL 70-110 H Lab Interpretation (test code = Abnormal 77263-1) [facility] GLUCOSE (AUTOMATED)2020-07-04 06:02:58 Test Item Value Reference Range Interpretation Comments POCT GLU (test code = 9368230841) 146 mg/dL 70-110 H Lab Interpretation (test code = Abnormal 55205-8) [facility] GLUCOSE (AUTOMATED)2020-07-04 02:16:36 Test Item Value Reference Range Interpretation Comments POCT GLU (test code = 6819415130) 176 mg/dL 70-110 H Lab Interpretation (test code = Abnormal 14469-4) [facility] METABOLIC PANEL (NA, K, CL, CO2, GLUCOSE, BUN, CREATININE, CA)2020-07-03 23:01:20 Test Item Value Reference Range Interpretation Comments NA (test code = 142 mmol/L 135-145 1652405994) K (test code = 3.6 mmol/L 3.5-5.0 6311370692) CL (test code = 90 mmol/L 98-108 L 4362086497) CO2 TOTAL (test code = 42 mmol/L 23-31 H 9397689149) AGAP (test code = 2-16 2499889400) BUN (test code = 49 mg/dL 7-23 H 4275975328) GLUCOSE (test code = 144 mg/dL 70-110 H 2039881341) CREATININE (test code = 1.22 mg/dL 0.60-1.25 1247969559) CALCIUM (test code = 9.3 mg/dL 8.6-10.6 8163553609) eGFR (test code = mL/min/1.73m2 8591854905) eGFR Calculation mL/min/1.73m2 () (test code = 5340708580) MEG (test code = MEG) Association of Glomerular Filtration Rate (GFR) and Staging of Kidney Disease* + --+ --+ ------+| GFR (mL/min/1.73 m2) ?| With Kidney Damage ?| ?Without Kidney Damage+ --------+ --------+ +| ?>90 ?| ?Stage one ?| ? Normal ?+ ---+ ---+ -------+| ?60-89 ?| ?Stage two ?| ? Decreased GFR ? + --+ --+ ------+| ?30-59 ?| ?Stage three ?| ? Stage three ? + --+ --+ ------+| ?15-29 ?| ?Stage four ? | ? Stage four ?+ ---+ ---+ -------+| ?<15 (or dialysis) ? ?| ?Stage five ? | ? Stage five ?+ ---+ ---+ -------+ *Each stage assumes the associated GFR level has been in effect for at least three months. ?Stages 1 to 5, with or without kidney disease, indicate chronic kidney disease. Notes: Determination of stages one and two (with eGFR >59mL/min/1.73 m2) requires estimation of kidney damage for at least three months as defined by structural or functional abnormalities of the kidney, manifested by either:Pathological abnormalities or Markers of kidney damage (including abnormalities in the composition of the blood or urine or abnormalities in imaging tests). Lab Interpretation Abnormal (test code = 90210-6) [facility]for use with Heparin Drip)2020-07-03 22:06:03 Test Item Value Reference Range Interpretation Comments APTT Patient (test code See_Comment H [Au tomated message] = 3173-2) The system [employer] generated this result transmitted ref erence range: 26 - 36 Seconds. The reference range was not used to int erpret this result as normal/abnormal . Lab Interpretation (test Abnormal code = 19147-4) [facility]2020-07-03 21:38:01 Test Item Value Reference Range Interpretation Comments POCT GLU (test code = 5050342303) 143 mg/dL 70-110 H Lab Interpretation (test code = Abnormal 53064-6) [facility] CenterQUANTIFERON-TB [id number] 18:35:18 Test Item Value Reference Range Interpretation Comments Nil (test code = IU/mL 34573-3) TB1 minus Nil (test IU/mL code = 10743-3) TB2 minus Nil (test IU/mL code = 1626844888) Mitogen minus Nil IU/mL (test code = 24026-2) QFT Gold Plus Negative Negative Result (test code = 55993-1) MEG (test code = The QuantiFERON? TB Gold MEG) Plus (in Tube) assay is intended for use as an aid in diagnosis of TB infection. A qualitative result (i.e., Negative, Positive, or Indeterminate) is based on interpretation of the four values, Nil, TB1 minus Nil, TB2 minus Nil, and Mitogen minus Nil. ?The Nil value represents nonspecific reactivity produced by the patient specimen. ?The TB1 minus Nil value indicates the interferon-gamma response of CD4+ T lymphocytes, specifically stimulated by the TB1 antigens. ?The TB2 minus Nil value indicates interferon-gamma response of both CD4+ and CD8+ T lymphocytes, stimulated by TB2 antigens. ?The Mitogen minus Nil value serves as the positive control, demonstrating the successful responsiveness of the T lymphocytes in patient specimen. A negative result suggests that M. tuberculosis infection is unlikely. ?However, in patients with high suspicion of exposure, a negative test should be repeated on a new sample. A positive result indicates an interferon-gamma response to M. tuberculosis antigens, suggesting infection with M. tuberculosis. Positive results in patients at low-risk for tuberculosis should be interpreted with caution and repeat testing on a new sample is advised. ?If repeat testing is positive, treatment may be indicated. ?Consult Infectious Disease Services for further recommendations. False positive results may occur in patients with prior infection with M. marinum, M. szulgai, or M. kansasii. For an indeterminate result, the likelihood of determining infection with M. tuberculosis cannot be determined. ?If clinically indicated, repeat testing on a new sample is advised. For further information, refer to http://www.cdc.gov/mmwr/pd f/rr/hl2932.pdf and https://doi.org/10.1093/ci d/dgq246. [facility] CenterQUANTIFERON-TB [id number] 18:35:18 Test Item Value Reference Range Interpretation Comments Nil (test code = IU/mL 75515-7) TB1 minus Nil (test IU/mL code = 84375-6) TB2 minus Nil (test IU/mL code = 5334265426) Mitogen minus Nil IU/mL (test code = 50229-7) QFT Gold Plus Negative Negative Result (test code = 18517-4) MEG (test code = The QuantiFERON? TB Gold MEG) Plus (in Tube) assay is intended for use as an aid in diagnosis of TB infection. A qualitative result (i.e., Negative, Positive, or Indeterminate) is based on interpretation of the four values, Nil, TB1 minus Nil, TB2 minus Nil, and Mitogen minus Nil. ?The Nil value represents nonspecific reactivity produced by the patient specimen. ?The TB1 minus Nil value indicates the interferon-gamma response of CD4+ T lymphocytes, specifically stimulated by the TB1 antigens. ?The TB2 minus Nil value indicates interferon-gamma response of both CD4+ and CD8+ T lymphocytes, stimulated by TB2 antigens. ?The Mitogen minus Nil value serves as the positive control, demonstrating the successful responsiveness of the T lymphocytes in patient specimen. A negative result suggests that M. tuberculosis infection is unlikely. ?However, in patients with high suspicion of exposure, a negative test should be repeated on a new sample. A positive result indicates an interferon-gamma response to M. tuberculosis antigens, suggesting infection with M. tuberculosis. Positive results in patients at low-risk for tuberculosis should be interpreted with caution and repeat testing on a new sample is advised. ?If repeat testing is positive, treatment may be indicated. ?Consult Infectious Disease Services for further recommendations. False positive results may occur in patients with prior infection with M. marinum, M. szulgai, or M. kansasii. For an indeterminate result, the likelihood of determining infection with M. tuberculosis cannot be determined. ?If clinically indicated, repeat testing on a new sample is advised. For further information, refer to http://www.cdc.gov/mmwr/pd f/rr/rw5430.pdf and https://doi.org/10.1093/ci d/wev147. [facility])2020-07-03 16:14:07 Test Item Value Reference Range Interpretation Comments POCT GLU (test code = 6353273897) 148 mg/dL 70-110 H Lab Interpretation (test code = Abnormal 24588-0) [facility] + LACTIC [id number] 13:32:18 Test Item Value Reference Range Interpretation Comments PH (test code = 7.32-7.42 H 3928260337) PCO2 CLAUDINE (test code = See_Comment H [Auto mated 5367238511) message] The sy stem which generated this result transmitted reference range : 41 - 51 mmHg. The reference range was not used to interpret this result as normal/abnormal . PO2 CLAUDINE (test code = See_Comment [Autom ated 2017863344) message] The sy stem which generated this result transmitted reference range : 25 - 40 mmHg. The reference range was not used to interpret this result as normal/abnormal . HCO3 CLAUDINE (test code = See_Comment H [Auto mated 0371133240) message] The sy stem which generated this result transmitted reference range : 24 - 28 mEq/L. The reference range was not used to interpret this result as normal/abnormal . AC VBE(BEAKER) (test mEq/L code = 0879526512) THB CLAUDINE (test code = 10.1 g/dL 13.5-18.0 L 2880615871) %O2HB CLAUDINE (test code = 53.8 % 52.0-63.0 1650335193) %COHB CLAUDINE (test code = 0.2 % 0.0-1.5 0325746873) %METHB CLAUDINE (test code = 0.3 % 0.4-1.5 L 1375809505) VOL%O2 CLAUDINE (test code = 7.7 % 6.0-12.0 7609272239) NA (test code = 142 mmol/L 135-145 7993966348) K+ (test code = 3.5 mmol/L 3.5-5.0 8284684186) AC CA IONZ (test code = 4.50 mg/dL 4.50-5.30 0346292082) GLUCOSE (test code = 120 mg/dL 70-110 H 6191909170) LACTIC ACID (test code 1.23 mmol/L 0.50-2.20 = 6242450918) Lab Interpretation Abnormal (test code = 09657-4) [facility] Center[facility] GLU[facility]SE (AUTOMATED)2020-07-03 12:25:26 Test Item Value Reference Range Interpretation Comments POCT GLU (test code = 8936701292) 126 mg/dL 70-110 H Lab Interpretation (test code = Abnormal 54894-9) [facility] CenterACTIVATED PARTIAL THRMPLAS [id number] 11:41:58 Test Item Value Reference Range Interpretation Comments APTT Patient (test code See_Comment H [Au tomated message] = 3173-2) The system [employer] generated this result transmitted ref erence range: 26 - 36 Seconds. The reference range was not used to int erpret this result as normal/abnormal . Lab Interpretation (test Abnormal code = 38005-0) [facility] CenterBAS[facility] METABOLIC PANEL (NA, K, CL, CO2, GLUCOSE, BUN, CREATININE, CA)2020-07-03 09:58:53 Test Item Value Reference Range Interpretation Comments NA (test code = 141 mmol/L 135-145 3231785648) K (test code = 3.2 mmol/L 3.5-5.0 L 3921586383) CL (test code = 88 mmol/L 98-108 L 5417244153) CO2 TOTAL (test code = 40 mmol/L 23-31 H 4926185406) AGAP (test code = 2-16 9088773538) BUN (test code = 51 mg/dL 7-23 H 8623173515) GLUCOSE (test code = 158 mg/dL 70-110 H 6864538063) CREATININE (test code = 1.21 mg/dL 0.60-1.25 3606459023) CALCIUM (test code = 9.3 mg/dL 8.6-10.6 2986509377) eGFR (test code = mL/min/1.73m2 9171923233) eGFR Calculation mL/min/1.73m2 () (test code = 6267335723) MEG (test code = MEG) Association of Glomerular Filtration Rate (GFR) and Staging of Kidney Disease* + --+ --+ ------+| GFR (mL/min/1.73 m2) ?| With Kidney Damage ?| ?Without Kidney Damage+ --------+ --------+ +| ?>90 ?| ?Stage one ?| ? Normal ?+ ---+ ---+ -------+| ?60-89 ?| ?Stage two ?| ? Decreased GFR ? + --+ --+ ------+| ?30-59 ?| ?Stage three ?| ? Stage three ? + --+ --+ ------+| ?15-29 ?| ?Stage four ? | ? Stage four ?+ ---+ ---+ -------+| ?<15 (or dialysis) ? ?| ?Stage five ? | ? Stage five ?+ ---+ ---+ -------+ *Each stage assumes the associated GFR level has been in effect for at least three months. ?Stages 1 to 5, with or without kidney disease, indicate chronic kidney disease. Notes: Determination of stages one and two (with eGFR >59mL/min/1.73 m2) requires estimation of kidney damage for at least three months as defined by structural or functional abnormalities of the kidney, manifested by either:Pathological abnormalities or Markers of kidney damage (including abnormalities in the composition of the blood or urine or abnormalities in imaging tests). Lab Interpretation Abnormal (test code = 82577-1) [facility] CenterMAGN[facility]IUM2021-[facility]-31 09:21:13 Test Item Value Reference Range Interpretation Comments MAGNESIUM (test code = 8266007581) 2.1 mg/dL 1.7-2.4 Lab Interpretation (test code = Normal 09821-4) [facility] WITH [id number] 09:08:32 Test Item Value Reference Range Interpretation Comments WBC (test code = See_Comment H [Automated 4590-2) message] The sy stem which generated this result transmitted reference range : 4.20 - 10.70 10*3/?L. The reference range was not used to interpret this result as normal/abnormal . RBC (test code = See_Comment L [Automated 789-8) message] The sy stem which generated this result transmitted reference range : 4.26 - 5.52 10*6/?L. The reference range was not used to interpret this result as normal/abnormal . HGB (test code = 7.8 g/dL 12.2-16.4 L 718-7) HCT (test code = 27.0 % 38.4-49.3 L 4544-3) MCV (test code = 89.7 fL 81.7-95.6 787-2) MCH (test code = 25.9 pg 26.1-32.7 L 785-6) MCHC (test code = 28.9 g/dL 31.2-35.0 L 786-4) RDW-SD (test code = 61.1 fL 38.5-51.6 H 08965-8) RDW-CV (test code = 20.4 % 12.1-15.4 H 788-0) PLT (test code = See_Comment [Automated 777-3) message] The sy stem which generated this result transmitted reference range : 150 - 328 10*3/ ?L. The reference r delano was not used to interpret this result as normal/abnormal . MPV (test code = 12.2 fL 9.8-13.0 74676-3) NRBC/100 WBC (test See_Comment [Automat ed code = 7572501753) message] The system which generated this result transmitted reference range : 0.0 - 10.0 /100 WBCs. The refer ence range was not u sed to interpret th is result as normal/abnormal . NRBC x10^3 (test code See_Comment [Auto mated = 4907023404) message] The s ystem which generated this result transmitted reference range : 10*3/?L. The reference range was not used to interpret this result as normal/abnormal . GRAN MAT (NEUT) % 77.4 % (test code = 770-8) IMM GRAN % (test code 1.60 % = 1199636286) LYMPH % (test code = 14.2 % 736-9) MONO % (test code = 4.7 % 5905-5) EOS % (test code = 1.8 % 713-8) BASO % (test code = 0.3 % 706-2) GRAN MAT x10^3(ANC) 8.62 10*3/uL 1.99-6.95 H (test code = 9596532312) IMM GRAN x10^3 (test 0.18 10*3/uL 0.00-0.06 H code = 7654490398) LYMPH x10^3 (test code 1.58 10*3/uL 1.09-3.23 = 731-0) MONO x10^3 (test code 0.52 10*3/uL 0.36-1.02 = 742-7) EOS x10^3 (test code = 0.20 10*3/uL 0.06-0.53 711-2) BASO x10^3 (test code 0.03 10*3/uL 0.01-0.09 = 704-7) Lab Interpretation Abnormal (test code = 67967-9) [facility] + LACTIC [id number] 08:45:55 Test Item Value Reference Range Interpretation Comments PH (test code = 2) 7.35-7.45 H PCO2 (test code = See_Comment H [Automate d 6608985147) message] The sy stem which generated this result transmitted reference range : 35 - 45 mmHg. The reference range was not used to interpret this result as normal/abnormal . PO2 (test code = See_Comment L [Automated 9145831359) message] The sy stem which generated this result transmitted reference range : 80 - 100 mmHg. The reference range was not used to interpret this result as normal/abnormal . HCO3 (test code = See_Comment H [Automate d 7300428370) message] The sy stem which generated this result transmitted reference range : 22 - 26 mEq/L. The reference range was not used to interpret this result as normal/abnormal . BE (test code = See_Comment H [Automated 0608085784) message] The sy stem which generated this result transmitted reference range : -3.0 - 3.0 mEq/ L. The reference r delano was not used to interpret this result as normal/abnormal . THB (test code = 9.0 g/dL 13.5-18.0 L 3707794018) %O2HB (test code = 88.1 % 94.0-99.0 L 9649938286) %COHB ART (test code = 0.3 % 0.0-1.5 3579412752) %METHB ART (test code = 0.2 % 0.4-1.5 L 5215985619) VOL%O2 ART (test code = 11.2 % 15.0-23.0 L 4425071212) NA (test code = 141 mmol/L 135-145 5576792182) K+ (test code = 3.2 mmol/L 3.5-5.0 L 0387313267) AC CA IONZ (test code = 4.60 mg/dL 4.50-5.30 8400267879) GLUCOSE (test code = 151 mg/dL 70-110 H 0612971061) LACTIC ACID (test code 1.27 mmol/L 0.50-2.20 = 1493705095) Lab Interpretation Abnormal (test code = 15699-2) [facility] GLUCOSE (AUTOMATED)2020-07-03 08:40:38 Test Item Value Reference Range Interpretation Comments POCT GLU (test code = 2740772621) 185 mg/dL 70-110 H Lab Interpretation (test code = Abnormal 57287-2) [facility] (for use with Heparin Drip)2020-07-03 06:02:07 Test Item Value Reference Range Interpretation Comments APTT Patient (test code See_Comment H [Au tomated message] = 3173-2) The system [employer] generated this result transmitted ref erence range: 26 - 36 Seconds. The reference range was not used to int erpret this result as normal/abnormal . Lab Interpretation (test Abnormal code = 21392-7) [facility] GLUCOSE (AUTOMATED)2020-07-03 05:09:39 Test Item Value Reference Range Interpretation Comments POCT GLU (test code = 2565424650) 178 mg/dL 70-110 H Lab Interpretation (test code = Abnormal 14507-0) [facility] GLUCOSE (AUTOMATED)2020-07-03 00:55:17 Test Item Value Reference Range Interpretation Comments POCT GLU (test code = 6971512260) 183 mg/dL 70-110 H Lab Interpretation (test code = Abnormal 03751-4) [facility] (NA, K, CL, CO2, GLUCOSE, BUN, CREATININE, CA)2020-07-02 23:19:13 Test Item Value Reference Range Interpretation Comments NA (test code = 142 mmol/L 135-145 8309479066) K (test code = 4.0 mmol/L 3.5-5.0 6290320276) CL (test code = 91 mmol/L 98-108 L 3056359115) CO2 TOTAL (test code = 39 mmol/L 23-31 H 1929507592) AGAP (test code = 2-16 5083895094) BUN (test code = 52 mg/dL 7-23 H 6291825816) GLUCOSE (test code = 177 mg/dL 70-110 H 4672448965) CREATININE (test code = 1.17 mg/dL 0.60-1.25 3526117979) CALCIUM (test code = 9.6 mg/dL 8.6-10.6 2779460238) eGFR (test code = mL/min/1.73m2 6502191459) eGFR Calculation mL/min/1.73m2 () (test code = 2658679895) MEG (test code = MEG) Association of Glomerular Filtration Rate (GFR) and Staging of Kidney Disease* + --+ --+ ------+| GFR (mL/min/1.73 m2) ?| With Kidney Damage ?| ?Without Kidney Damage+ --------+ --------+ +| ?>90 ?| ?Stage one ?| ? Normal ?+ ---+ ---+ -------+| ?60-89 ?| ?Stage two ?| ? Decreased GFR ? + --+ --+ ------+| ?30-59 ?| ?Stage three ?| ? Stage three ? + --+ --+ ------+| ?15-29 ?| ?Stage four ? | ? Stage four ?+ ---+ ---+ -------+| ?<15 (or dialysis) ? ?| ?Stage five ? | ? Stage five ?+ ---+ ---+ -------+ *Each stage assumes the associated GFR level has been in effect for at least three months. ?Stages 1 to 5, with or without kidney disease, indicate chronic kidney disease. Notes: Determination of stages one and two (with eGFR >59mL/min/1.73 m2) requires estimation of kidney damage for at least three months as defined by structural or functional abnormalities of the kidney, manifested by either:Pathological abnormalities or Markers of kidney damage (including abnormalities in the composition of the blood or urine or abnormalities in imaging tests). Lab Interpretation Abnormal (test code = 86613-3) [facility] + LACTIC [id number] 22:19:13 Test Item Value Reference Range Interpretation Comments PH (test code = 2) 7.35-7.45 H PCO2 (test code = See_Comment H [Automate d 9547700201) message] The sy stem which generated this result transmitted reference range : 35 - 45 mmHg. The reference range was not used to interpret this result as normal/abnormal . PO2 (test code = See_Comment L [Automated 5809322423) message] The sy stem which generated this result transmitted reference range : 80 - 100 mmHg. The reference range was not used to interpret this result as normal/abnormal . HCO3 (test code = See_Comment H [Automate d 9204764107) message] The sy stem which generated this result transmitted reference range : 22 - 26 mEq/L. The reference range was not used to interpret this result as normal/abnormal . BE (test code = See_Comment H [Automated 7967161820) message] The sy stem which generated this result transmitted reference range : -3.0 - 3.0 mEq/ L. The reference r delano was not used to interpret this result as normal/abnormal . THB (test code = 12.0 g/dL 13.5-18.0 L 9807424680) %O2HB (test code = 86.4 % 94.0-99.0 L 1973361089) %COHB ART (test code = 0.0 % 0.0-1.5 9949549445) %METHB ART (test code = 0.2 % 0.4-1.5 L 5758294493) VOL%O2 ART (test code = 14.6 % 15.0-23.0 L 8049945242) NA (test code = 140 mmol/L 135-145 1143244908) K+ (test code = 3.9 mmol/L 3.5-5.0 4631487823) AC CA IONZ (test code = 4.60 mg/dL 4.50-5.30 4868431348) GLUCOSE (test code = 168 mg/dL 70-110 H 6660522739) LACTIC ACID (test code 1.37 mmol/L 0.50-2.20 = 7674300788) Lab Interpretation Abnormal (test code = 85505-3) [facility]2020-07-02 21:25:09 Test Item Value Reference Range Interpretation Comments POCT GLU (test code = 5918437824) 183 mg/dL 70-110 H Lab Interpretation (test code = Abnormal 80987-5) [facility] (for use with Heparin Drip)2020-07-02 17:51:15 Test Item Value Reference Range Interpretation Comments APTT Patient (test code See_Comment H [Au tomated message] = 3173-2) The system [employer] generated this result transmitted ref erence range: 26 - 36 Seconds. The reference range was not used to int erpret this result as normal/abnormal . Lab Interpretation (test Abnormal code = 60795-7) [facility] Center[facility] [id number] 17:01:34 Test Item Value Reference Range Interpretation Comments Blood Culture-Aerobic No organisms No growth Previo us (test code = 16723-7) isolated prelim inary verified result was Culture In Progress on 06/27/2020 at 15 02 CDTPrevious preliminary verified result was No growth a t 24 hours on 06/28/2020 at 12 01 CDTPrevious preliminary verified result was No growth a t 48 hours on 06/29/2020 at 12 01 CDTPrevious preliminary verified result was No growth a t 72 hours on 06/30/2020 at 12 01 CDT Blood No organisms No growth Previous Culture-Anaerobic isolated preliminar y (test code = 26096-2) verifi ed result was Culture In Progress on 06/27/2020 at 15 02 CDTPrevious preliminary verified result was No growth a t 24 hours on 06/28/2020 at 12 01 CDTPrevious preliminary verified result was No growth a t 48 hours on 06/29/2020 at 12 01 CDTPrevious preliminary verified result was No growth a t 72 hours on 06/30/2020 at 12 01 CDT Lab Interpretation Normal (test code = 24250-4) [facility] Center[facility] [id number] 17:01:34 Test Item Value Reference Range Interpretation Comments Blood Culture-Aerobic No organisms No growth Previo us (test code = 78111-1) isolated prelim inary verified result was Culture In Progress on 06/27/2020 at 15 02 CDTPrevious preliminary verified result was No growth a t 24 hours on 06/28/2020 at 12 01 CDTPrevious preliminary verified result was No growth a t 48 hours on 06/29/2020 at 12 01 CDTPrevious preliminary verified result was No growth a t 72 hours on 06/30/2020 at 12 01 CDT Blood No organisms No growth Previous Culture-Anaerobic isolated preliminar y (test code = 59626-2) verifi ed result was Culture In Progress on 06/27/2020 at 15 02 CDTPrevious preliminary verified result was No growth a t 24 hours on 06/28/2020 at 12 01 CDTPrevious preliminary verified result was No growth a t 48 hours on 06/29/2020 at 12 01 CDTPrevious preliminary verified result was No growth a t 72 hours on 06/30/2020 at 12 01 CDT Lab Interpretation Normal (test code = 90487-1) [facility] + LACTIC [id number] 17:01:21 Test Item Value Reference Range Interpretation Comments PH (test code = 2) 7.35-7.45 H PCO2 (test code = See_Comment H [Automate d 5001956016) message] The sy stem which generated this result transmitted reference range : 35 - 45 mmHg. The reference range was not used to interpret this result as normal/abnormal . PO2 (test code = See_Comment L [Automated 3610109478) message] The sy stem which generated this result transmitted reference range : 80 - 100 mmHg. The reference range was not used to interpret this result as normal/abnormal . HCO3 (test code = See_Comment H [Automate d 1446368774) message] The sy stem which generated this result transmitted reference range : 22 - 26 mEq/L. The reference range was not used to interpret this result as normal/abnormal . BE (test code = See_Comment H [Automated 5063692883) message] The sy stem which generated this result transmitted reference range : -3.0 - 3.0 mEq/ L. The reference r delano was not used to interpret this result as normal/abnormal . THB (test code = 11.1 g/dL 13.5-18.0 L 6444423145) %O2HB (test code = 84.0 % 94.0-99.0 L 2647970035) %COHB ART (test code = 0.3 % 0.0-1.5 6885994808) %METHB ART (test code = 0.3 % 0.4-1.5 L 8428480644) VOL%O2 ART (test code = 13.1 % 15.0-23.0 L 7705094692) NA (test code = 143 mmol/L 135-145 8177371410) K+ (test code = 3.4 mmol/L 3.5-5.0 L 7722388186) AC CA IONZ (test code = 4.70 mg/dL 4.50-5.30 7626199495) GLUCOSE (test code = 118 mg/dL 70-110 H 4468682693) LACTIC ACID (test code 1.60 mmol/L 0.50-2.20 = 7639512027) Lab Interpretation Abnormal (test code = 40079-9) [facility] CenterXR CHEST 1 [id number] 16:49:19 Interval placement of right-sided PICC line, terminating in the SVC. Worsening bilateral interstitial and airspace opacities with worseningpleural effusions. Preliminary Report Dictated by Resident: Shahram Madden MD., have reviewed this study and agree with the abovereport.PROCEDURE: XR CHEST 1 VW CLINICAL INDICATION: picc line placement TECHNIQUE: Frontal chest radiograph was obtained. COMPARISON: Multiple prior chest radiographs. FINDINGS: Interval placement of right sided PICC line, terminating in the SVC. Theright IJ terminates in the SVC. The endotracheal tube terminates 5cmfollow-up line. The esophagogastric tube courses down to the abdomen, butthe tip is not visualizedin the rjosr-yp-qgtl. Diffuse bilateral interstitial, hazy airspace opacities are mildly worsecompared to the prior, likely due to edema and/or atelectasis. Superimposedinfectious process cannot be excluded. Bilateral pleural effusions areseen, right greater than left. No pneumothorax is identified. The heart is normal in size. No acute bony abnormality is noted. [facility], Radiant Results Inft User - 07/02/2020 11:50 AM CDTPROCEDURE: XR CHEST 1 VWCLINICAL INDICATION: picc line placement TECHNIQUE: Frontal chest radiograph was obtained.COMPARISON: Multiple prior chest radiographs.FINDINGS:Interval placement of right sided PICC line, terminating in the SVC. Theright IJ terminates in the SVC. The endotrac heal tube terminates 5 cmfollow-up line. The esophagogastric tube courses down to the abdomen, butthe tip is not visualized in the skebj-oo-rkbp.Diffuse bilateral interstitial, hazy airspace opacities are mildly worsecompared to the prior, likely due to edema and/or atelectasis. Superimposedinfectiousprocess cannot be excluded. Bilateral pleural effusions areseen, right greater than left. No pneumothorax is identified.The heart is normal in size.No acute bony abnormality is noted.IMPRESSIONIntervalplacement of right-sided PICC line, terminating in the SVC.Worsening bilateral interstitial and airspace opacities with worseningpleural effusions.Preliminary Report Dictated by Resident: Shahram Jenkins MD., have reviewed this study and agree with the abovereport.[facility] + LACTIC ACID 2020-07-02 16:04:14 Test Item Value Reference Range Interpretation Comments PH (test code = 7.32-7.42 H 8079188087) PCO2 CLAUDINE (test code = See_Comment H [Auto mated 9520023539) message] The sy stem which generated this result transmitted reference range : 41 - 51 mmHg. The reference range was not used to interpret this result as normal/abnormal . PO2 CLAUDINE (test code = See_Comment [Autom ated 4894533979) message] The sy stem which generated this result transmitted reference range : 25 - 40 mmHg. The reference range was not used to interpret this result as normal/abnormal . HCO3 CLAUDINE (test code = See_Comment H [Auto mated 1542611783) message] The sy stem which generated this result transmitted reference range : 24 - 28 mEq/L. The reference range was not used to interpret this result as normal/abnormal . AC VBE(BEAKER) (test mEq/L code = 2986186646) THB CLAUDINE (test code = 12.7 g/dL 13.5-18.0 L 3669249020) %O2HB CLAUDINE (test code = 59.2 % 52.0-63.0 1860981588) %COHB CLAUDINE (test code = 0.4 % 0.0-1.5 1053405754) %METHB CLAUDINE (test code = 0.3 % 0.4-1.5 L 0487288224) VOL%O2 CLAUDINE (test code = 10.6 % 6.0-12.0 4440549323) NA (test code = 140 mmol/L 135-145 6786763251) K+ (test code = 3.4 mmol/L 3.5-5.0 L 6913130410) AC CA IONZ (test code = 4.60 mg/dL 4.50-5.30 5882245441) GLUCOSE (test code = 122 mg/dL 70-110 H 5918921413) LACTIC ACID (test code 1.69 mmol/L 0.50-2.20 = 3993380856) Lab Interpretation Abnormal (test code = 16505-8) [facility]2020-07-02 15:55:25 Test Item Value Reference Range Interpretation Comments POCT GLU (test code = 7020343706) 133 mg/dL 70-110 H Lab Interpretation (test code = Abnormal 68197-7) [facility] CenterSPUTUM [id number] 13:28:40 Test Item Value Reference Range Interpretation Comments SPUTUM CULTURE 1+ Respiratory leelee: (test code = 622-1) Commensal upper respiratory microorganisms only. Gram stain (test Occasional (Rare) code = 664-3) Epithelial cells present MEG (test code = Bacterial pathogens MEG) associated with lower respiratory infections were not identified, which include Pseudomonas aeruginosa and Staphylococcus aureus (MRSA or MSSA). [facility]AC PANEL 21 + LACTIC [id number] 13:21:06 Test Item Value Reference Range Interpretation Comments PH (test code = 7.32-7.42 H 0661354273) PCO2 CLAUDINE (test code = See_Comment H [Auto mated 5145555151) message] The sy stem which generated this result transmitted reference range : 41 - 51 mmHg. The reference range was not used to interpret this result as normal/abnormal . PO2 CLAUDINE (test code = See_Comment [Autom ated 6628452290) message] The sy stem which generated this result transmitted reference range : 25 - 40 mmHg. The reference range was not used to interpret this result as normal/abnormal . HCO3 CLAUDINE (test code = See_Comment H [Auto mated 9943463407) message] The sy stem which generated this result transmitted reference range : 24 - 28 mEq/L. The reference range was not used to interpret this result as normal/abnormal . AC VBE(BEAKER) (test mEq/L code = 1308677049) THB CLAUDINE (test code = 8.5 g/dL 13.5-18.0 L 3541643181) %O2HB CLAUDINE (test code = 67.5 % 52.0-63.0 H 4679131983) %COHB CLAUDINE (test code = 0.3 % 0.0-1.5 1628686652) %METHB CLAUDINE (test code = 0.3 % 0.4-1.5 L 0685184942) VOL%O2 CLAUDINE (test code = 8.1 % 6.0-12.0 1078410082) NA (test code = 137 mmol/L 135-145 2796753826) K+ (test code = 3.4 mmol/L 3.5-5.0 L 4685921788) AC CA IONZ (test code = 4.40 mg/dL 4.50-5.30 L 6699478234) GLUCOSE (test code = 215 mg/dL 70-110 H 6167279182) LACTIC ACID (test code 1.18 mmol/L 0.50-2.20 = 1002288830) Lab Interpretation Abnormal (test code = 12153-9) [facility])2020-07-02 13:13:48 Test Item Value Reference Range Interpretation Comments POCT GLU (test code = 7523057495) 258 mg/dL 70-110 H Lab Interpretation (test code = Abnormal 45966-4) [facility] (for use with Heparin Drip)2020-07-02 11:36:24 Test Item Value Reference Range Interpretation Comments APTT Patient (test code See_Comment H [Au tomated message] = 3173-2) The system [employer] generated this result transmitted ref erence range: 26 - 36 Seconds. The reference range was not used to int erpret this result as normal/abnormal . Lab Interpretation (test Abnormal code = 03924-2) [facility] METABOLIC PANEL (NA, K, CL, CO2, GLUCOSE, BUN, CREATININE, CA)2020-07-02 10:23:54 Test Item Value Reference Range Interpretation Comments NA (test code = 141 mmol/L 135-145 7641638412) K (test code = 3.3 mmol/L 3.5-5.0 L 0396138350) CL (test code = 93 mmol/L 98-108 L 7175545450) CO2 TOTAL (test code = 37 mmol/L 23-31 H 8319505261) AGAP (test code = 2-16 0276931576) BUN (test code = 58 mg/dL 7-23 H 9434627215) GLUCOSE (test code = 133 mg/dL 70-110 H 5113301488) CREATININE (test code = 1.09 mg/dL 0.60-1.25 0279638825) CALCIUM (test code = 9.2 mg/dL 8.6-10.6 2833104348) eGFR (test code = mL/min/1.73m2 5821987348) eGFR Calculation mL/min/1.73m2 () (test code = 6603436103) MEG (test code = MEG) Association of Glomerular Filtration Rate (GFR) and Staging of Kidney Disease* + --+ --+ ------+| GFR (mL/min/1.73 m2) ?| With Kidney Damage ?| ?Without Kidney Damage+ --------+ --------+ +| ?>90 ?| ?Stage one ?| ? Normal ?+ ---+ ---+ -------+| ?60-89 ?| ?Stage two ?| ? Decreased GFR ? + --+ --+ ------+| ?30-59 ?| ?Stage three ?| ? Stage three ? + --+ --+ ------+| ?15-29 ?| ?Stage four ? | ? Stage four ?+ ---+ ---+ -------+| ?<15 (or dialysis) ? ?| ?Stage five ? | ? Stage five ?+ ---+ ---+ -------+ *Each stage assumes the associated GFR level has been in effect for at least three months. ?Stages 1 to 5, with or without kidney disease, indicate chronic kidney disease. Notes: Determination of stages one and two (with eGFR >59mL/min/1.73 m2) requires estimation of kidney damage for at least three months as defined by structural or functional abnormalities of the kidney, manifested by either:Pathological abnormalities or Markers of kidney damage (including abnormalities in the composition of the blood or urine or abnormalities in imaging tests). Lab Interpretation Abnormal (test code = 87348-9) [facility] CenterMAGNESIUM2021-03-30 10:05:28 Test Item Value Reference Range Interpretation Comments MAGNESIUM (test code = 9934891174) 1.7 mg/dL 1.7-2.4 Lab Interpretation (test code = Normal 13138-6) [facility] WITH [id number] 09:35:23 Test Item Value Reference Range Interpretation Comments WBC (test code = See_Comment H [Automated 6690-2) message] The system which generated this result transmit glo reference range : 4.20 - 10.70 10*3/?L. The reference range was not used to interpret this result as normal/abnormal . RBC (test code = See_Comment L [Automated 789-8) message] The system which generated this result transmit gol reference range : 4.26 - 5.52 10*6/?L. The reference range was not used to interpret this result as normal/abnormal . HGB (test code = 7.8 g/dL 12.2-16.4 L 718-7) HCT (test code = 26.7 % 38.4-49.3 L 4544-3) MCV (test code = 88.7 fL 81.7-95.6 787-2) MCH (test code = 25.9 pg 26.1-32.7 L 785-6) MCHC (test code = 29.2 g/dL 31.2-35.0 L 786-4) RDW-SD (test code = 59.7 fL 38.5-51.6 H 12883-4) RDW-CV (test code = 18.9 % 12.1-15.4 H 788-0) PLT (test code = See_Comment [Automated 777-3) message] The system which generated this result transmit glo reference range : 150 - 328 10*3/ ?L. The reference range was not u sed to interpret th is result as normal/abnormal . MPV (test code = 13.5 fL 9.8-13.0 H 00390-0) NRBC/100 WBC (test See_Comment [Automat ed code = 8881803628) message] The system which generated this result transmit glo reference range : 0.0 - 10.0 /100 WBCs. The reference range was not used to interpret this result as normal/abnormal . NRBC x10^3 (test code See_Comment [Auto mated = 9595233888) message] The system which generated this result transmit glo reference range : 10*3/?L. The reference range was not used to interpret this result as normal/abnormal . GRAN MAT (NEUT) % 79.9 % (test code = 770-8) IMM GRAN % (test code 1.30 % = 8220462756) LYMPH % (test code = 12.1 % 736-9) MONO % (test code = 3.8 % 5905-5) EOS % (test code = 2.7 % 713-8) BASO % (test code = 0.2 % 706-2) GRAN MAT x10^3(ANC) 11.28 10*3/uL 1.99-6.95 H (test code = 9687360249) IMM GRAN x10^3 (test 0.19 10*3/uL 0.00-0.06 H code = 6760721996) LYMPH x10^3 (test code 1.71 10*3/uL 1.09-3.23 = 731-0) MONO x10^3 (test code 0.53 10*3/uL 0.36-1.02 = 742-7) EOS x10^3 (test code = 0.38 10*3/uL 0.06-0.53 711-2) BASO x10^3 (test code 0.03 10*3/uL 0.01-0.09 = 704-7) Lab Interpretation Abnormal (test code = 33476-7) [facility] GLUCOSE (AUTOMATED)2020-07-02 09:29:45 Test Item Value Reference Range Interpretation Comments POCT GLU (test code = 6253427077) 135 mg/dL 70-110 H Lab Interpretation (test code = Abnormal 78176-6) [facility] CenterLaoric Acid Whole [id number] 09:23:32 Test Item Value Reference Range Interpretation Comments LACTIC ACID (test code = 1.47 mmol/L 0.50-2.20 8152524500) Lab Interpretation (test code = Normal 17924-3) [facility] GLUCOSE (AUTOMATED)2020-07-02 07:34:00 Test Item Value Reference Range Interpretation Comments POCT GLU (test code = 1405139578) 141 mg/dL 70-110 H Lab Interpretation (test code = Abnormal 19905-6) [facility] CenterVancomycin Trough Level - Draw immediately prior to the 4TH dose, but, no more than 60 minutes before the 4TH dose. 2020-07-02 07:13:05 Test Item Value Reference Range Interpretation Comments VANCO TROUGH (test code 22.7 ug/mL 10.0-20.0 H = 9792942089) MEG (test code = MEG) Toxic Range: ?>20 ug/mL 15-20 ug/mL is recommended for severe infection or when Vancomycin LIAM is greater than or equal to 2. Lab Interpretation (test Abnormal code = 45200-4) [facility] (for use with Heparin Drip)2020-07-02 04:36:59 Test Item Value Reference Range Interpretation Comments APTT Patient (test code See_Comment H [Au tomated message] = 3173-2) The system [employer] generated this result transmitted ref erence range: 26 - 36 Seconds. The reference range was not used to int erpret this result as normal/abnormal . Lab Interpretation (test Abnormal code = 15108-9) [facility] GLUCOSE (AUTOMATED)2020-07-01 23:53:06 Test Item Value Reference Range Interpretation Comments POCT GLU (test code = 4441890032) 169 mg/dL 70-110 H Lab Interpretation (test code = Abnormal 23554-3) [facility] CenterBAS[facility] METABOLIC PANEL (NA, K, CL, CO2, GLUCOSE, BUN, CREATININE, CA)2020-07-01 22:36:00 Test Item Value Reference Range Interpretation Comments NA (test code = 143 mmol/L 135-145 9926040482) K (test code = 3.8 mmol/L 3.5-5.0 8827693814) CL (test code = 96 mmol/L 98-108 L 4451252939) CO2 TOTAL (test code = 36 mmol/L 23-31 H 7099514346) AGAP (test code = 2-16 3364164784) BUN (test code = 59 mg/dL 7-23 H 6247533290) GLUCOSE (test code = 208 mg/dL 70-110 H 9005837780) CREATININE (test code = 1.10 mg/dL 0.60-1.25 3414688788) CALCIUM (test code = 9.2 mg/dL 8.6-10.6 9044494462) eGFR (test code = mL/min/1.73m2 0864079445) eGFR Calculation mL/min/1.73m2 () (test code = 2671248008) MEG (test code = MEG) Association of Glomerular Filtration Rate (GFR) and Staging of Kidney Disease* + --+ --+ ------+| GFR (mL/min/1.73 m2) ?| With Kidney Damage ?| ?Without Kidney Damage+ --------+ --------+ +| ?>90 ?| ?Stage one ?| ? Normal ?+ ---+ ---+ -------+| ?60-89 ?| ?Stage two ?| ? Decreased GFR ? + --+ --+ ------+| ?30-59 ?| ?Stage three ?| ? Stage three ? + --+ --+ ------+| ?15-29 ?| ?Stage four ? | ? Stage four ?+ ---+ ---+ -------+| ?<15 (or dialysis) ? ?| ?Stage five ? | ? Stage five ?+ ---+ ---+ -------+ *Each stage assumes the associated GFR level has been in effect for at least three months. ?Stages 1 to 5, with or without kidney disease, indicate chronic kidney disease. Notes: Determination of stages one and two (with eGFR >59mL/min/1.73 m2) requires estimation of kidney damage for at least three months as defined by structural or functional abnormalities of the kidney, manifested by either:Pathological abnormalities or Markers of kidney damage (including abnormalities in the composition of the blood or urine or abnormalities in imaging tests). Lab Interpretation Abnormal (test code = 17263-9) [facility] WITHOUT [id number] 22:04:29 Test Item Value Reference Range Interpretation Comments WBC (test code = 6690-2) See_Comment H [A utomated message] The system [employer] generated this result transmit glo reference range : 4.20 - 10.70 10*3/?L. The reference range was not used to interpret this result as normal/abnormal . RBC (test code = 789-8) See_Comment L [Au tomated message] The system [employer] generated this result transmit glo reference range : 4.26 - 5.52 10* 6/?L. The reference r delano was not used to interpret this result as normal/abnormal . HGB (test code = 718-7) 8.3 g/dL 12.2-16.4 L HCT (test code = 4544-3) 28.4 % 38.4-49.3 L MCH (test code = 785-6) 25.9 pg 26.1-32.7 L MCV (test code = 787-2) 88.8 fL 81.7-95.6 MCHC (test code = 786-4) 29.2 g/dL 31.2-35.0 L PLT (test code = 777-3) See_Comment [Au tomated message] The system [employer] generated this result transmit glo reference range : 150 - 328 10*3/?L. The reference range was not used to interpret this result as normal/abnormal . MPV (test code = 14.0 fL 9.8-13.0 H 13548-2) RDW-CV (test code = 18.7 % 12.1-15.4 H 788-0) RDW-SD (test code = 59.4 fL 38.5-51.6 H 73680-3) NRBC x10^3 (test code = See_Comment [Au tomated message] [id number]) The system [employer] generated this result transmit glo reference range : 10*3/?L. The reference range was not used to interpret this result as normal/abnormal . NRBC/100 WBC (test code See_Comment [Au tomated message] = 6234205243) The system [facility] generated this result transmit glo reference range : 0.0 - 10.0 /100 WBC s. The reference r delano was not used to interpret this result as normal/abnormal . IPF % (test code = 1299484202) Lab Interpretation (test Abnormal code = 32853-3) [facility] WITHOUT [id number] 22:04:29 Test Item Value Reference Range Interpretation Comments WBC (test code = 6690-2) See_Comment H [A utomated message] The system [employer] generated this result transmit glo reference range : 4.20 - 10.70 10*3/?L. The reference range was not used to interpret this result as normal/abnormal . RBC (test code = 789-8) See_Comment L [Au tomated message] The system [employer] generated this result transmit glo reference range : 4.26 - 5.52 10* 6/?L. The reference r dealno was not used to interpret this result as normal/abnormal . HGB (test code = 718-7) 8.3 g/dL 12.2-16.4 L HCT (test code = 4544-3) 28.4 % 38.4-49.3 L MCH (test code = 785-6) 25.9 pg 26.1-32.7 L MCV (test code = 787-2) 88.8 fL 81.7-95.6 MCHC (test code = 786-4) 29.2 g/dL 31.2-35.0 L PLT (test code = 777-3) See_Comment [Au tomated message] The system [employer] generated this result transmit glo reference range : 150 - 328 10*3/?L. The reference range was not used to interpret this result as normal/abnormal . MPV (test code = 14.0 fL 9.8-13.0 H 36065-4) RDW-CV (test code = 18.7 % 12.1-15.4 H 788-0) RDW-SD (test code = 59.4 fL 38.5-51.6 H 48925-9) NRBC x10^3 (test code = See_Comment [Au tomated message] [id number]) The system [employer] generated this result transmit glo reference range : 10*3/?L. The reference range was not used to interpret this result as normal/abnormal . NRBC/100 WBC (test code See_Comment [Au tomated message] = 8444324157) The system [facility] generated this result transmit glo reference range : 0.0 - 10.0 /100 WBC s. The reference r delano was not used to interpret this result as normal/abnormal . IPF % (test code = 7268318942) Lab Interpretation (test Abnormal code = 61947-6) [facility]2020-07-01 21:40:07 Test Item Value Reference Range Interpretation Comments POCT GLU (test code = 1521245697) 196 mg/dL 70-110 H Lab Interpretation (test code = Abnormal 11727-6) [facility] CenterACTIVATED PARTIAL THRMPLAS [id number] 17:31:30 Test Item Value Reference Range Interpretation Comments APTT Patient (test code See_Comment H [Au tomated message] = 3173-2) The system [employer] generated this result transmitted ref erence range: 26 - 36 Seconds. The reference range was not used to int erpret this result as normal/abnormal . Lab Interpretation (test Abnormal code = 00289-5) [facility] Center[facility] PANEL [facility] + LACTIC [id number] 17:13:44 Test Item Value Reference Range Interpretation Comments PH (test code = 7.32-7.42 1296924191) PCO2 CLAUDINE (test code = See_Comment H [Auto mated 6496011542) message] The sy stem which generated this result transmitted reference range : 41 - 51 mmHg. The reference range was not used to interpret this result as normal/abnormal . PO2 CLAUDINE (test code = See_Comment [Autom ated 4305259156) message] The sy stem which generated this result transmitted reference range : 25 - 40 mmHg. The reference range was not used to interpret this result as normal/abnormal . HCO3 CLAUDINE (test code = See_Comment H [Auto mated 3146584535) message] The sy stem which generated this result transmitted reference range : 24 - 28 mEq/L. The reference range was not used to interpret this result as normal/abnormal . AC VBE(BEAKER) (test mEq/L code = 7242038604) THB CLAUDINE (test code = 12.0 g/dL 13.5-18.0 L 8927259800) %O2HB CLAUDINE (test code = 41.5 % 52.0-63.0 L 7514986727) %COHB CLAUDINE (test code = 0.5 % 0.0-1.5 4989756205) %METHB CLAUDINE (test code = 0.3 % 0.4-1.5 L 4902973679) VOL%O2 CLAUDINE (test code = 7.0 % 6.0-12.0 9968809012) NA (test code = 140 mmol/L 135-145 5705900752) K+ (test code = 3.7 mmol/L 3.5-5.0 7136038202) AC CA IONZ (test code = 4.80 mg/dL 4.50-5.30 6555553675) GLUCOSE (test code = 384 mg/dL 70-110 H 6769151908) LACTIC ACID (test code 2.22 mmol/L 0.50-2.20 H = 3369865100) Lab Interpretation Abnormal (test code = 10205-4) [facility] CenterProttroy regional medical centerbin Time / [id number] 16:39:44 Test Item Value Reference Range Interpretation Comments PROTIME PATIENT (test See_Comment H [Auto mated message] code = 5964-2) The system [employer] generated this result transmitted ref erence range: 10.1 - 1 2.6 Seconds. The reference range was not used to int erpret this result as normal/abnormal . INR (test code = 6301-6) Nor mal INR <1.1; Warfarin Therap eutic range 2.0 to 3. 0 or 2.5 to 3.5, dep ending upon the indica tions. Lab Interpretation (test Abnormal code = 04475-3) [facility] CenterPro[facility] centerbin Time / [id number] 16:39:44 Test Item Value Reference Range Interpretation Comments PROTIME PATIENT (test See_Comment H [Auto mated message] code = 5964-2) The system [employer] generated this result transmitted ref erence range: 10.1 - 1 2.6 Seconds. The reference range was not used to int erpret this result as normal/abnormal . INR (test code = 6301-6) Nor mal INR <1.1; Warfarin Therap eutic range 2.0 to 3. 0 or 2.5 to 3.5, dep ending upon the indica tions. Lab Interpretation (test Abnormal code = 48849-3) [facility] GLUCOSE (AUTOMATED)2020-07-01 16:32:41 Test Item Value Reference Range Interpretation Comments POCT GLU (test code = 7555781592) 375 mg/dL 70-110 H Lab Interpretation (test code = Abnormal 51683-6) [facility] GLUCOSE (AUTOMATED)2020-07-01 16:32:36 Test Item Value Reference Range Interpretation Comments POCT GLU (test code = 7407291348) 365 mg/dL 70-110 H Lab Interpretation (test code = Abnormal 66227-7) [facility] GLUCOSE (AUTOMATED)2020-07-01 16:32:35 Test Item Value Reference Range Interpretation Comments POCT GLU (test code = 3604832449) 470 mg/dL 70-110 HH Lab Interpretation (test code = Abnormal 36249-6) [facility] GLUCOSE (AUTOMATED)2020-07-01 16:32:30 Test Item Value Reference Range Interpretation Comments POCT GLU (test code = 7645087577) 346 mg/dL 70-110 H Lab Interpretation (test code = Abnormal 12758-6) [facility] GLUCOSE (AUTOMATED)2020-07-01 16:32:30 Test Item Value Reference Range Interpretation Comments POCT GLU (test code = 9518152520) 370 mg/dL 70-110 H Lab Interpretation (test code = Abnormal 64866-1) [facility] CenterPrepare Packed RBC (in units), 1 Units 2020-07-01 16:13:23 Test Item Value Reference Range Interpretation Comments Cross Match Result Compatible (test code = 4409) ISBT Blood Type Code (test code = 131681) Unit Blood Type (test B Pos code = 4410) Unit Number (test [id number] code = 4411) Blood Expiration Date & Time (test code = 354705) Status Information Issued (test code = 4412) Product Red Blood Cells Identification (test code = 4413) Product Code (test [id number] Performed at [facility] code = 4414) Laboratory Services - [facility] Blood [address] [place] [address]Ryjz Free: [phone] A No. [id number] [facility] CenterPrepare Packed RBC (in units), 1 Units 2020-07-01 16:13:23 Test Item Value Reference Range Interpretation Comments Cross Match Result Compatible (test code = 4409) ISBT Blood Type Code (test code = 963550) Unit Blood Type (test B Pos code = 4410) Unit Number (test [id number] code = 4411) Blood Expiration Date & Time (test code = 745630) Status Information Issued (test code = 4412) Product Red Blood Cells Identification (test code = 4413) Product Code (test [id number] Performed at [facility] code = 4414) Laboratory Services - [facility] Blood [address] [address]Dxpd Free: [phone] A No. [id number] [facility] CenterUS ABDOMEN [id number] 15:05:32 No cholelithiasis, biliary sludge, or evidence of acute cholecystitis. Mild hepatosplenomegaly withdiffusely increased hepatic echogenicity,which may be seen in chronic hepatocellular disease, or with hepaticsteatosis. ISai MD., have reviewed this study and agree with the abovereport.EXAM: US ABDOMEN LIMITED HISTORY: 64 years-old Male with worsening liver chemistries . TECHNIQUE: Limited abdominal ultrasound focused on the liver, right kidneyand spleen was performed. The main portal vein was evaluated with colorDoppler imaging. [employer] images were obtained for the record. COMPARISON: None FINDINGS: PANCREAS: The pancreatic head and body display normal echogenicity to the extentvisualized. AORTA:The proximal abdominal aorta is normal in caliber where visualized, andmeasures approximately 1.7 cm in diameter. LIVER:Length: The liver is mildly enlarged, and measures 19.1 cm in thecraniocaudal dimension.Parenchyma: The liver parenchyma exhibits normal hepatic echogenicity andechotexture. No focal lesion is detected.Portal vein: Hepatopetal flow is present in the main portal vein.MPV diameter: The main portal vein is at the upper limits of normal, andmeasures 1.5 cm in the AP dimension. BILE DUCTS:No intra- or extrahepatic biliary dilatation is visualized.The common bile duct diameter is normal, and measures 0.3 cm. GALLBLADDER:The gallbladder is normal in size. No shadowingstones are seen.The gallbladder wall thickness is normal, and measures 0.3 cm.No pericholecystic fluid is visualized. Arroyo's sign could not beaccurately assessed due to sedation. IVC:The IVC appears normal where visualized. SPLEEN:The spleen is mildly enlarged, and measures 13.2 cm in the craniocaudaldimension. No focal lesion is seen. [facility], Radiant Results Inft User - 07/01/2020 10:06 AM CDTEXAM: US ABDOMEN LIMITEDHISTORY: 64 years-old Male with worsening liver chemistries .TECHNIQUE: Limited abdominal ultrasound focused on the liver, right kidneyand spleen was performed. The main portal vein was evaluated with colorDoppler imaging. [employer] images were obtained for the record.COMPARISON:NoneFINDINGS: PANCREAS: The pancreatic head and body display normal echogenicity to the extentvisualized.AORTA:The proximal abdominal aorta is normal in caliber where visualized, andmeasures approximately 1.7 cm in diameter. LIVER:Length: The liver is mildly enlarged, and measures 19.1 cm in thecraniocaudal dimension.Parenchyma: The liver parenchyma exhibits normal hepatic echogenicity andechotexture. No focal lesion is detected.Portal vein: Hepatopetal flow is present in the main portal vein.MPV diameter: The main portal vein is at the upper limits of normal, andmeasures 1.5 cm in the AP dimension.BILE DUCTS:No intra- or extrahepatic biliary dilatation is visualized.The common bile duct diameter is normal, and measures 0.3 cm.GALLBLADDER:The gallbladder is normal in size. No shadowing stones are seen.The gallbladder wall thickness is normal, and measures 0.3 cm.No pericholecystic fluid is visualized. Arroyo's sign could not beaccurately assessed due to sedation.IVC:The IVC appears normal wherevisualized. SPLEEN:The spleen is mildly enlarged, and measures 13.2 cm in the craniocaudaldimension.No focal lesion is seen. IMPRESSIONNo cholelithiasis, biliary sludge, or evidence of acute cholecystitis.Mild hepatosplenomegaly with diffusely increased hepatic echogenicity,which may be seen in chronic hepatocellular disease, or with hepaticsteatosis.Sai Miramontes MD., have reviewed this study and agree with the abovereport.[facility] CenterUS ABDOMEN [id number] 15:05:32 No cholelithiasis, biliary sludge, or evidence of acute cholecystitis. Mild hepatosplenomegaly withdiffusely increased hepatic echogenicity,which may be seen in chronic hepatocellular disease, or with hepaticsteatosis. Sai Miramontes MD., have reviewed this study and agree with the abovereport.EXAM: US ABDOMEN LIMITED HISTORY: 64 years-old Male with worsening liver chemistries . TECHNIQUE: Limited abdominal ultrasound focused on the liver, right kidneyand spleen was performed. The main portal vein was evaluated with colorDoppler imaging. [employer] images were obtained for the record. COMPARISON: None FINDINGS: PANCREAS: The pancreatic head and body display normal echogenicity to the extentvisualized. AORTA:The proximal abdominal aorta is normal in caliber where visualized, andmeasures approximately 1.7 cm in diameter. LIVER:Length: The liver is mildly enlarged, and measures 19.1 cm in thecraniocaudal dimension.Parenchyma: The liver parenchyma exhibits normal hepatic echogenicity andechotexture. No focal lesion is detected.Portal vein: Hepatopetal flow is present in the main portal vein.MPV diameter: The main portal vein is at the upper limits of normal, andmeasures 1.5 cm in the AP dimension. BILE DUCTS:No intra- or extrahepatic biliary dilatation is visualized.The common bile duct diameter is normal, and measures 0.3 cm. GALLBLADDER:The gallbladder is normal in size. No shadowingstones are seen.The gallbladder wall thickness is normal, and measures 0.3 cm.No pericholecystic fluid is visualized. Arroyo's sign could not beaccurately assessed due to sedation. IVC:The IVC appears normal where visualized. SPLEEN:The spleen is mildly enlarged, and measures 13.2 cm in the craniocaudaldimension. No focal lesion is seen. [facility], Radiant Results Inft User - 07/01/2020 10:06 AM CDTEXAM: US ABDOMEN LIMITEDHISTORY: 64 years-old Male with worsening liver chemistries .TECHNIQUE: Limited abdominal ultrasound focused on the liver, right kidneyand spleen was performed. The main portal vein was evaluated with colorDoppler imaging. [employer] images were obtained for the record.COMPARISON:NoneFINDINGS: PANCREAS: The pancreatic head and body display normal echogenicity to the extentvisualized.AORTA:The proximal abdominal aorta is normal in caliber where visualized, andmeasures approximately 1.7 cm in diameter. LIVER:Length: The liver is mildly enlarged, and measures 19.1 cm in thecraniocaudal dimension.Parenchyma: The liver parenchyma exhibits normal hepatic echogenicity andechotexture. No focal lesion is detected.Portal vein: Hepatopetal flow is present in the main portal vein.MPV diameter: The main portal vein is at the upper limits of normal, andmeasures 1.5 cm in the AP dimension.BILE DUCTS:No intra- or extrahepatic biliary dilatation is visualized.The common bile duct diameter is normal, and measures 0.3 cm.GALLBLADDER:The gallbladder is normal in size. No shadowing stones are seen.The gallbladder wall thickness is normal, and measures 0.3 cm.No pericholecystic fluid is visualized. Arroyo's sign could not beaccurately assessed due to sedation.IVC:The IVC appears normal wherevisualized. SPLEEN:The spleen is mildly enlarged, and measures 13.2 cm in the craniocaudaldimension.No focal lesion is seen. IMPRESSIONNo cholelithiasis, biliary sludge, or evidence of acute cholecystitis.Mild hepatosplenomegaly with diffusely increased hepatic echogenicity,which may be seen in chronic hepatocellular disease, or with hepaticsteatosis.ISai MD., have reviewed this study and agree with the abovereport.[facility] CenterABCAMER[facility] [id number] 14:53:39 Test Item Value Reference Range Interpretation Comments ABO & RH (test code B Positive Performe d at [facility] = 20) Laboratory Serv [facility] Blood Bank3 [facility] [address]Vpjo Free: [phone] A No. [id number] [facility] [id number] 14:53:39 Test Item Value Reference Range Interpretation Comments ABO & RH (test code B Positive Performe d at [facility] = 20) Laboratory Serv [facility] Blood Bank[address] [place], [place] [address]Glenny soto s [address]Fwog Free: [phone] A No. [id number] [facility] CenterAC PANEL 21 + LACTIC [id number] 14:46:26 Test Item Value Reference Range Interpretation Comments PH (test code = 7.32-7.42 2166130446) PCO2 CLAUDINE (test code = See_Comment H [Auto mated 3878933931) message] The sy stem which generated this result transmitted reference range : 41 - 51 mmHg. The reference range was not used to interpret this result as normal/abnormal . PO2 CLAUDINE (test code = See_Comment [Autom ated 8302934157) message] The sy stem which generated this result transmitted reference range : 25 - 40 mmHg. The reference range was not used to interpret this result as normal/abnormal . HCO3 CLAUDINE (test code = See_Comment H [Auto mated 1760417854) message] The sy stem which generated this result transmitted reference range : 24 - 28 mEq/L. The reference range was not used to interpret this result as normal/abnormal . AC VBE(BEAKER) (test mEq/L code = 6515386063) THB CLAUDINE (test code = 10.4 g/dL 13.5-18.0 L 1977886086) %O2HB CLAUDINE (test code = 45.0 % 52.0-63.0 L 8436451675) %COHB CLAUDINE (test code = 0.1 % 0.0-1.5 0044999777) %METHB CLAUDINE (test code = 0.3 % 0.4-1.5 L 1230316404) VOL%O2 CLAUDINE (test code = 6.6 % 6.0-12.0 4010711784) NA (test code = 143 mmol/L 135-145 8811693647) K+ (test code = 3.7 mmol/L 3.5-5.0 1834908690) AC CA IONZ (test code = 4.70 mg/dL 4.50-5.30 8577526585) GLUCOSE (test code = 415 mg/dL 70-110 H 7091083728) LACTIC ACID (test code 1.94 mmol/L 0.50-2.20 = 4852145796) Lab Interpretation Abnormal (test code = 47571-0) [facility] CenterXR CHEST 1 [id number] 14:31:24EXAM: XR CHEST 1 VW HISTORY: intubated, volume overload COMPARISON: None. FINDINGS: The tip of the endotracheal tube is at the lower level of the clavicles, anasogastric tube passes through the thorax and into the stomach, and thetip of the right IJ line is in the superior vena cava. The heart isslightly enlarged with a partly calcified thoracic aorta. Hilar vascularcongestion is more marked than noted previously, and pulmonary edemaproduces fluffy opacities in both lung bases. Only the upper lungs areclear. ? [facility], Radiant Results Inft User - 07/01/2020 9:32 AM CDTEXAM: XR CHEST 1 VWHISTORY: intubated, volume overload COMPARISON: None.FINDINGS:The tip of the endotracheal tube is at the lower level of the clavicles, anasogastric tube passes through the thorax and into the stomach, and thetip of the right IJ line is in the superior vena cava. The heart isslightly enlarged with a partly calcified thoracic aorta. Hilar vascularcongestion is more marked than noted previously, and pulmonary edemaproduces fluffy opacities in both lung bases. Only the upper lungs areclear.[facility] CenterType and Screen - ONCE [id number] 14:17:32 Test Item Value Reference Range Interpretation Comments ABO & RH (test code B POSITIVE Performe d at [facility] = 20) Laboratory Serv [facility] Blood Bank3 [address] [facility] s [address]Zkkz Free: [phone] A No. [id number] IAT (test code = Negative Performed a t [facility] 1185) Laboratory Serv [facility] Blood Bank3 [address] [facility] s [address]Fxyv Free: [phone] A No. [id number] [facility] CenterType and Screen - ONCE [id number] 14:17:32 Test Item Value Reference Range Interpretation Comments ABO & RH (test code B POSITIVE Performe d at [facility] = 20) Laboratory Serv [facility] Blood Bank3 [address] [facility] s [address]Ammy Free: [phone] A No. [id number] IAT (test code = Negative Performed a t [facility] 1185) Laboratory [facility] Blood Bank3 [address] [facility] s [address]Ogju Free: [phone] A No. [id number] [facility] GLUCOSE (AUTOMATED)2020-07-01 13:26:05 Test Item Value Reference Range Interpretation Comments POCT GLU (test code = 8068011031) 408 mg/dL 70-110 H Lab Interpretation (test code = Abnormal 42128-6) [facility] CenterXR CHEST 1 [id number] 13:23:54EXAM: XR CHEST 1 VW HISTORY: volume overload COMPARISON: None. FINDINGS: The tip of the endotrachealtube is at the lower level of the clavicles, anasogastric tube passes through the thorax and into the stomach and the tipof the right IJ line is in the superior vena cava. The heart and greatvessels are normal except for calcium in the arch of the aorta. Hilarvascular congestion persists. Basilar opacities in both lungs, more markedon the right ? [facility], Radiant Results Inft User - 07/01/2020 8:25 AM CDTEXAM: XR CHEST 1 VWHISTORY: volume overload COMPARISON: None.FINDINGS:The tip of the endotracheal tube is at the lower level of the clavicles, anasogastric tube passes through the thorax and into the s tomach and the tipof the right IJ line is in the superior vena cava. The heart and greatvessels are normal except for calcium in the arch of the aorta. Hilarvascular congestion persists. Basilar opacities in both lungs, more markedon the rightUnPalestine Regional Medical CenterURINE [id number] 11:49:12 Test Item Value Reference Range Interpretation Comments URINE CULTURE (test No aerobic growth (< code = 630-4) 1000 CFU/mL) [facility] GLUCOSE (AUTOMATED)2020-07-01 11:26:03 Test Item Value Reference Range Interpretation Comments POCT GLU (test code = 7974881656) 364 mg/dL 70-110 H Lab Interpretation (test code = Abnormal 17260-8) [facility] WITH [id number] 06:37:13 Test Item Value Reference Range Interpretation Comments WBC (test code = See_Comment H [Automated 6690-2) message] The sy stem which generated this result transmitted reference range : 4.20 - 10.70 10*3/?L. The reference range was not used to interpret this result as normal/abnormal . RBC (test code = See_Comment L [Automated 789-8) message] The sy stem which generated this result transmitted reference range : 4.26 - 5.52 10*6/?L. The reference range was not used to interpret this result as normal/abnormal . HGB (test code = 6.9 g/dL 12.2-16.4 L 718-7) HCT (test code = 25.0 % 38.4-49.3 L 4544-3) MCV (test code = 89.0 fL 81.7-95.6 787-2) MCH (test code = 24.6 pg 26.1-32.7 L 785-6) MCHC (test code = 27.6 g/dL 31.2-35.0 L 786-4) RDW-SD (test code = 59.6 fL 38.5-51.6 H 13825-6) RDW-CV (test code = 18.8 % 12.1-15.4 H 788-0) PLT (test code = See_Comment [Automated 777-3) message] The sy stem which generated this result transmitted reference range : 150 - 328 10*3/ ?L. The reference r delano was not used to interpret this result as normal/abnormal . MPV (test code = 13.2 fL 9.8-13.0 H 21136-6) NRBC/100 WBC (test See_Comment [Automat ed code = 5520647781) message] The system which generated this result transmitted reference range : 0.0 - 10.0 /100 WBCs. The refer ence range was not u sed to interpret th is result as normal/abnormal . NRBC x10^3 (test code See_Comment [Auto mated = 5563268675) message] The s ystem which generated this result transmitted reference range : 10*3/?L. The reference range was not used to interpret this result as normal/abnormal . GRAN MAT (NEUT) % 75.1 % (test code = 770-8) IMM GRAN % (test code 0.50 % = 4800604117) LYMPH % (test code = 16.8 % 736-9) MONO % (test code = 5.3 % 5905-5) EOS % (test code = 2.1 % 713-8) BASO % (test code = 0.2 % 706-2) GRAN MAT x10^3(ANC) 9.13 10*3/uL 1.99-6.95 H (test code = 8092182144) IMM GRAN x10^3 (test 0.06 10*3/uL 0.00-0.06 code = 0888129791) LYMPH x10^3 (test code 2.04 10*3/uL 1.09-3.23 = 731-0) MONO x10^3 (test code 0.65 10*3/uL 0.36-1.02 = 742-7) EOS x10^3 (test code = 0.25 10*3/uL 0.06-0.53 711-2) BASO x10^3 (test code <0.03 0.01-0.09 = 704-7) BASO STIPPLING (test Present A code = 703-9) BANDS (test code = Increased A 2698072101) Lab Interpretation Abnormal (test code = 80615-0) [facility] 06:31:42 Test Item Value Reference Range Interpretation Comments MAGNESIUM (test code = 3486356514) 2.2 mg/dL 1.7-2.4 Lab Interpretation (test code = Normal 29475-7) [facility] MET[facility]OLIC PANEL (NA, K, CL, CO2, GLUCOSE, BUN, CREATININE, CA)2020-07-01 06:31:42 Test Item Value Reference Range Interpretation Comments NA (test code = 141 mmol/L 135-145 5802886795) K (test code = 3.7 mmol/L 3.5-5.0 6557440903) CL (test code = 97 mmol/L 98-108 L 4522644776) CO2 TOTAL (test code = 38 mmol/L 23-31 H 3178146026) AGAP (test code = 2-16 8736351984) BUN (test code = 63 mg/dL 7-23 H 5072190708) GLUCOSE (test code = 360 mg/dL 70-110 H 4008215750) CREATININE (test code = 1.16 mg/dL 0.60-1.25 6078557173) CALCIUM (test code = 8.9 mg/dL 8.6-10.6 8183093519) eGFR (test code = mL/min/1.73m2 3115409586) eGFR Calculation mL/min/1.73m2 () (test code = 3497022650) MEG (test code = MEG) Association of Glomerular Filtration Rate (GFR) and Staging of Kidney Disease* + --+ --+ ------+| GFR (mL/min/1.73 m2) ?| With Kidney Damage ?| ?Without Kidney Damage+ --------+ --------+ +| ?>90 ?| ?Stage one ?| ? Normal ?+ ---+ ---+ -------+| ?60-89 ?| ?Stage two ?| ? Decreased GFR ? + --+ --+ ------+| ?30-59 ?| ?Stage three ?| ? Stage three ? + --+ --+ ------+| ?15-29 ?| ?Stage four ? | ? Stage four ?+ ---+ ---+ -------+| ?<15 (or dialysis) ? ?| ?Stage five ? | ? Stage five ?+ ---+ ---+ -------+ *Each stage assumes the associated GFR level has been in effect for at least three months. ?Stages 1 to 5, with or without kidney disease, indicate chronic kidney disease. Notes: Determination of stages one and two (with eGFR >59mL/min/1.73 m2) requires estimation of kidney damage for at least three months as defined by structural or functional abnormalities of the kidney, manifested by either:Pathological abnormalities or Markers of kidney damage (including abnormalities in the composition of the blood or urine or abnormalities in imaging tests). Lab Interpretation Abnormal (test code = 21715-6) [facility]for use with Heparin Drip)2020-07-01 06:18:40 Test Item Value Reference Range Interpretation Comments APTT Patient (test code See_Comment H [Au tomated message] = 3173-2) The system [employer] generated this result transmitted ref erence range: 26 - 36 Seconds. The reference range was not used to int erpret this result as normal/abnormal . Lab Interpretation (test Abnormal code = 74425-9) [facility] METABOLIC PANEL (NA, K, CL, CO2, GLUCOSE, BUN, CREATININE, CA)2020-06-30 20:32:42 Test Item Value Reference Range Interpretation Comments NA (test code = 141 mmol/L 135-145 7572997482) K (test code = 3.9 mmol/L 3.5-5.0 9334751016) CL (test code = 98 mmol/L 98-108 1880651905) CO2 TOTAL (test code = 37 mmol/L 23-31 H 4812697886) AGAP (test code = 2-16 0810280436) BUN (test code = 66 mg/dL 7-23 H 7650136865) GLUCOSE (test code = 427 mg/dL 70-110 H 1824823614) CREATININE (test code = 1.23 mg/dL 0.60-1.25 1385676576) CALCIUM (test code = 8.3 mg/dL 8.6-10.6 L 6927391126) eGFR (test code = mL/min/1.73m2 5612426289) eGFR Calculation mL/min/1.73m2 () (test code = 4756858143) MEG (test code = MEG) Association of Glomerular Filtration Rate (GFR) and Staging of Kidney Disease* + --+ --+ ------+| GFR (mL/min/1.73 m2) ?| With Kidney Damage ?| ?Without Kidney Damage+ --------+ --------+ +| ?>90 ?| ?Stage one ?| ? Normal ?+ ---+ ---+ -------+| ?60-89 ?| ?Stage two ?| ? Decreased GFR ? + --+ --+ ------+| ?30-59 ?| ?Stage three ?| ? Stage three ? + --+ --+ ------+| ?15-29 ?| ?Stage four ? | ? Stage four ?+ ---+ ---+ -------+| ?<15 (or dialysis) ? ?| ?Stage five ? | ? Stage five ?+ ---+ ---+ -------+ *Each stage assumes the associated GFR level has been in effect for at least three months. ?Stages 1 to 5, with or without kidney disease, indicate chronic kidney disease. Notes: Determination of stages one and two (with eGFR >59mL/min/1.73 m2) requires estimation of kidney damage for at least three months as defined by structural or functional abnormalities of the kidney, manifested by either:Pathological abnormalities or Markers of kidney damage (including abnormalities in the composition of the blood or urine or abnormalities in imaging tests). Lab Interpretation Abnormal (test code = 16968-3) [facility] use with Heparin Drip)2020-06-30 20:32:01 Test Item Value Reference Range Interpretation Comments APTT Patient (test code See_Comment H [Au tomated message] = 3173-2) The system [employer] generated this result transmitted ref erence range: 26 - 36 Seconds. The reference range was not used to int erpret this result as normal/abnormal . Lab Interpretation (test Abnormal code = 01106-4) [facility] CenterN-TERMINAL [id number] 17:49:35 Test Item Value Reference Range Interpretation Comments NT-proBNP (test code 35190 pg/mL See_Comment H [Autom ated = 4446871675) message] The system which generated this result transmitted reference range : <=125. The reference range was not used to interpret this result as normal/abnormal . MEG (test code = MEG) Biotin has been reported to cause a negative bias, interpret results relative to patient's use of biotin. Lab Interpretation Abnormal (test code = 45457-3) [facility] CenterAC PAN[facility] 21 + LACTIC [id number] 16:07:51 Test Item Value Reference Range Interpretation Comments PH (test code = 7.32-7.42 4937961278) PCO2 CLAUDINE (test code = See_Comment H [Auto mated 5368533636) message] The sy stem which generated this result transmitted reference range : 41 - 51 mmHg. The reference range was not used to interpret this result as normal/abnormal . PO2 CLAUDINE (test code = See_Comment [Autom ated 8931349414) message] The sy stem which generated this result transmitted reference range : 25 - 40 mmHg. The reference range was not used to interpret this result as normal/abnormal . HCO3 CLAUDINE (test code = See_Comment H [Auto mated 6766815782) message] The sy stem which generated this result transmitted reference range : 24 - 28 mEq/L. The reference range was not used to interpret this result as normal/abnormal . AC VBE(BEAKER) (test mEq/L code = 3136122180) THB CLAUDINE (test code = 8.4 g/dL 13.5-18.0 L 8875466620) %O2HB CLAUDINE (test code = 29.5 % 52.0-63.0 L 4213499713) %COHB CLAUDINE (test code = 0.3 % 0.0-1.5 8238382253) %METHB CLAUDINE (test code = 0.5 % 0.4-1.5 3661856982) VOL%O2 CLAUDINE (test code = 3.5 % 6.0-12.0 L 6776158477) NA (test code = 140 mmol/L 135-145 1890173338) K+ (test code = 4.0 mmol/L 3.5-5.0 5175122389) AC CA IONZ (test code = 4.60 mg/dL 4.50-5.30 3468881943) GLUCOSE (test code = 373 mg/dL 70-110 H 0400311601) LACTIC ACID (test code 2.59 mmol/L 0.50-2.20 H = 7193856174) Lab Interpretation Abnormal (test code = 11217-9) [facility] CenterCH[facility] CENTERTIMI [id number] 14:21:16 Test Item Value Reference Range Interpretation Comments TROPONIN I (test 0.145 ng/mL See_Comment H [Automated code = 9377744043) message] The system which generated this result transmitted reference range : <=0.034. The reference range was not used to interpret this result as normal/abnormal . MEG (test code = Equal or Less than MEG) 0.034 ng/ml---Normal ?Note: Cardiac troponin begins to rise 3-4 hours after the onset of ischemia. Repeat in 4-6 hours if the sample was drawn within 3-4 hours of the onset of the symptom and found normal. Between 0.035 and 0.120 ng/mL--- Borderline. Questionable myocardial injury or necrosis ? ?Note: Serial measurement may be necessary to confirm or exclude the diagnosis of myocardial injury or necrosis; Clinical correlation (symptoms, EKGs, imaging studies, and others) required; Repeat in 4-6 hours if clinically indicated. ? Equal or Higher than 0.121 ng/mL---Abnormal. Myocardial Injury or Necrosis Likely ? Biotin has been reported to cause a negative bias, interpret results relative to patient's use of biotin. ? Lab Interpretation Abnormal (test code = 19733-7) [facility] CenterNEELAM [id number] 14:21:16 Test Item Value Reference Range Interpretation Comments TROPONIN I (test 0.145 ng/mL See_Comment H [Automated code = 0516071861) message] The system which generated this result transmitted reference range : <=0.034. The reference range was not used to interpret this result as normal/abnormal . MEG (test code = Equal or Less than MEG) 0.034 ng/ml---Normal ?Note: Cardiac troponin begins to rise 3-4 hours after the onset of ischemia. Repeat in 4-6 hours if the sample was drawn within 3-4 hours of the onset of the symptom and found normal. Between 0.035 and 0.120 ng/mL--- Borderline. Questionable myocardial injury or necrosis ? ?Note: Serial measurement may be necessary to confirm or exclude the diagnosis of myocardial injury or necrosis; Clinical correlation (symptoms, EKGs, imaging studies, and others) required; Repeat in 4-6 hours if clinically indicated. ? Equal or Higher than 0.121 ng/mL---Abnormal. Myocardial Injury or Necrosis Likely ? Biotin has been reported to cause a negative bias, interpret results relative to patient's use of biotin. ? Lab Interpretation Abnormal (test code = 86854-5) [facility] CenterURINALYSIS2021-03-28 13:59:20 Test Item Value Reference Range Interpretation Comments APPEARANCE (test code = Cloudy Clear A 3956132510) COLOR (test code = Red Yellow A 6824611732) PH (test code = 4.8-8.0 4458567391) SP GRAVITY (test code = 1.003-1.030 3995089719) GLU U QUAL (test code = Normal Normal 6032298802) BLOOD (test code = 3+ Negative A 7181822106) KETONES (test code = Negative Negative 5724597458) PROTEIN (test code = 100 mg/dL Negative A 2887-8) UROBILIN (test code = 2.0 mg/dL Normal A 5124849507) BILIRUBIN (test code = Negative Negative 3178474596) NITRITE (test code = Negative Negative 8240614993) LEUK BARTOLO (test code = 25/uL Negative A 0396572749) RBC/HPF (test code = >182 See_Comment H [Autom ated message] 8585169344) The system [employer] generated this result transmit glo reference range : 0 - 3 HPF. The refe rence range was not u sed to interpret th is result as normal/abnormal . WBC/HPF (test code = See_Comment H [Autom ated message] 1155801931) The system [employer] generated this result transmit glo reference range : 0 - 5 HPF. The refe rence range was not u sed to interpret th is result as normal/abnormal . BACTERIA (test code = Few Negative A 8768694869) Lab Interpretation (test Abnormal code = 85501-3) [facility] CenterPO[facility] GLUCOSE (AUTOMATED)2020-06-30 13:42:55 Test Item Value Reference Range Interpretation Comments POCT GLU (test code = 9794639001) 347 mg/dL 70-110 H Lab Interpretation (test code = Abnormal 22548-0) [facility] CenterTROPONIN [id number] 12:41:12 Test Item Value Reference Range Interpretation Comments TROPONIN I (test 0.234 ng/mL See_Comment H [Automated code = 5290375651) message] The system which generated this result transmitted reference range : <=0.034. The reference range was not used to interpret this result as normal/abnormal . MEG (test code = Equal or Less than MEG) 0.034 ng/ml---Normal ?Note: Cardiac troponin begins to rise 3-4 hours after the onset of ischemia. Repeat in 4-6 hours if the sample was drawn within 3-4 hours of the onset of the symptom and found normal. Between 0.035 and 0.120 ng/mL--- Borderline. Questionable myocardial injury or necrosis ? ?Note: Serial measurement may be necessary to confirm or exclude the diagnosis of myocardial injury or necrosis; Clinical correlation (symptoms, EKGs, imaging studies, and others) required; Repeat in 4-6 hours if clinically indicated. ? Equal or Higher than 0.121 ng/mL---Abnormal. Myocardial Injury or Necrosis Likely ? Biotin has been reported to cause a negative bias, interpret results relative to patient's use of biotin. ? Lab Interpretation Abnormal (test code = 86817-1) [facility] METABOLIC PANEL (NA, K, CL, CO2, GLUCOSE, BUN, CREATININE, CA)2020-06-30 06:32:13 Test Item Value Reference Range Interpretation Comments NA (test code = 140 mmol/L 135-145 4848690515) K (test code = 4.0 mmol/L 3.5-5.0 1459190935) CL (test code = 95 mmol/L 98-108 L 2845644692) CO2 TOTAL (test code = 40 mmol/L 23-31 H 8606199469) AGAP (test code = 2-16 9912730921) BUN (test code = 67 mg/dL 7-23 H 1806065787) GLUCOSE (test code = 328 mg/dL 70-110 H 2594200476) CREATININE (test code = 1.26 mg/dL 0.60-1.25 H 0863661781) CALCIUM (test code = 8.7 mg/dL 8.6-10.6 2313390500) eGFR (test code = mL/min/1.73m2 9109407648) eGFR Calculation mL/min/1.73m2 () (test code = 2003974913) MEG (test code = MEG) Association of Glomerular Filtration Rate (GFR) and Staging of Kidney Disease* + --+ --+ ------+| GFR (mL/min/1.73 m2) ?| With Kidney Damage ?| ?Without Kidney Damage+ --------+ --------+ +| ?>90 ?| ?Stage one ?| ? Normal ?+ ---+ ---+ -------+| ?60-89 ?| ?Stage two ?| ? Decreased GFR ? + --+ --+ ------+| ?30-59 ?| ?Stage three ?| ? Stage three ? + --+ --+ ------+| ?15-29 ?| ?Stage four ? | ? Stage four ?+ ---+ ---+ -------+| ?<15 (or dialysis) ? ?| ?Stage five ? | ? Stage five ?+ ---+ ---+ -------+ *Each stage assumes the associated GFR level has been in effect for at least three months. ?Stages 1 to 5, with or without kidney disease, indicate chronic kidney disease. Notes: Determination of stages one and two (with eGFR >59mL/min/1.73 m2) requires estimation of kidney damage for at least three months as defined by structural or functional abnormalities of the kidney, manifested by either:Pathological abnormalities or Markers of kidney damage (including abnormalities in the composition of the blood or urine or abnormalities in imaging tests). Lab Interpretation Abnormal (test code = 04667-1) [facility] WITH [id number] 06:30:31 Test Item Value Reference Range Interpretation Comments WBC (test code = See_Comment H [Automated 2741-2) message] The sy stem which generated this result transmitted reference range : 4.20 - 10.70 10*3/?L. The reference range was not used to interpret this result as normal/abnormal . RBC (test code = See_Comment L [Automated 006-8) message] The sy stem which generated this result transmitted reference range : 4.26 - 5.52 10*6/?L. The reference range was not used to interpret this result as normal/abnormal . HGB (test code = 7.4 g/dL 12.2-16.4 L 718-7) HCT (test code = 26.5 % 38.4-49.3 L 4544-3) MCV (test code = 88.6 fL 81.7-95.6 787-2) MCH (test code = 24.7 pg 26.1-32.7 L 785-6) MCHC (test code = 27.9 g/dL 31.2-35.0 L 786-4) RDW-SD (test code = 59.8 fL 38.5-51.6 H 77771-3) RDW-CV (test code = 18.7 % 12.1-15.4 H 788-0) PLT (test code = See_Comment [Automated 777-3) message] The sy stem which generated this result transmitted reference range : 150 - 328 10*3/ ?L. The reference r delano was not used to interpret this result as normal/abnormal . MPV (test code = 13.3 fL 9.8-13.0 H 30245-2) NRBC/100 WBC (test See_Comment [Automat ed code = 3104290485) message] The system which generated this result transmitted reference range : 0.0 - 10.0 /100 WBCs. The refer ence range was not u sed to interpret th is result as normal/abnormal . NRBC x10^3 (test code See_Comment [Auto mated = 9008020735) message] The s ystem which generated this result transmitted reference range : 10*3/?L. The reference range was not used to interpret this result as normal/abnormal . GRAN MAT (NEUT) % 70.9 % (test code = 770-8) IMM GRAN % (test code 0.50 % = 6759583741) LYMPH % (test code = 18.7 % 736-9) MONO % (test code = 8.5 % 5905-5) EOS % (test code = 1.2 % 713-8) BASO % (test code = 0.2 % 706-2) GRAN MAT x10^3(ANC) 9.38 10*3/uL 1.99-6.95 H (test code = 3325684775) IMM GRAN x10^3 (test 0.07 10*3/uL 0.00-0.06 H code = 7352405007) LYMPH x10^3 (test code 2.47 10*3/uL 1.09-3.23 = 731-0) MONO x10^3 (test code 1.13 10*3/uL 0.36-1.02 H = 742-7) EOS x10^3 (test code = 0.16 10*3/uL 0.06-0.53 711-2) BASO x10^3 (test code <0.03 0.01-0.09 = 704-7) GIANT PLATELETS (test Present See_Comment A [Auto mated code = 5908-9) message] The system which generated this result transmitted reference range : (none). The reference range was not used to interpret this result as normal/abnormal . Lab Interpretation Abnormal (test code = 91741-5) [facility]MAG[facility]2021-[facility]-28 06:21:35 Test Item Value Reference Range Interpretation Comments MAGNESIUM (test code = 7191538540) 2.5 mg/dL 1.7-2.4 H Lab Interpretation (test code = Abnormal 57555-4) [facility]for use with Heparin Drip)2020-06-30 06:07:52 Test Item Value Reference Range Interpretation Comments APTT Patient (test code See_Comment H [Au tomated message] = 3173-2) The system [employer] generated this result transmitted ref erence range: 26 - 36 Seconds. The reference range was not used to int erpret this result as normal/abnormal . Lab Interpretation (test Abnormal code = 41013-8) [facility] CenterLaoric Acid Whole [id number] 05:55:32 Test Item Value Reference Range Interpretation Comments LACTIC ACID (test code = 1.57 mmol/L 0.50-2.20 3879568734) Lab Interpretation (test code = Normal 03485-0) [facility] GLUCOSE (AUTOMATED)2020-06-30 01:41:37 Test Item Value Reference Range Interpretation Comments POCT GLU (test code = 8578657672) 350 mg/dL 70-110 H Lab Interpretation (test code = Abnormal 81509-7) [facility] GLUCOSE (AUTOMATED)2020-06-30 01:16:40 Test Item Value Reference Range Interpretation Comments POCT GLU (test code = 3030193540) 367 mg/dL 70-110 H Lab Interpretation (test code = Abnormal 23803-0) [facility] CenterTROPONIN [id number] 21:42:38 Test Item Value Reference Range Interpretation Comments TROPONIN I (test 0.145 ng/mL See_Comment H [Automated code = 3451705096) message] The system which generated this result transmitted reference range : <=0.034. The reference range was not used to interpret this result as normal/abnormal . MEG (test code = Equal or Less than MEG) 0.034 ng/ml---Normal ?Note: Cardiac troponin begins to rise 3-4 hours after the onset of ischemia. Repeat in 4-6 hours if the sample was drawn within 3-4 hours of the onset of the symptom and found normal. Between 0.035 and 0.120 ng/mL--- Borderline. Questionable myocardial injury or necrosis ? ?Note: Serial measurement may be necessary to confirm or exclude the diagnosis of myocardial injury or necrosis; Clinical correlation (symptoms, EKGs, imaging studies, and others) required; Repeat in 4-6 hours if clinically indicated. ? Equal or Higher than 0.121 ng/mL---Abnormal. Myocardial Injury or Necrosis Likely ? Biotin has been reported to cause a negative bias, interpret results relative to patient's use of biotin. ? Lab Interpretation Abnormal (test code = 66338-4) [facility]MAG[facility]2021-[facility]-27 21:26:58 Test Item Value Reference Range Interpretation Comments MAGNESIUM (test code = 1620204050) 2.2 mg/dL 1.7-2.4 Lab Interpretation (test code = Normal 78373-7) [facility] CenterBAS[facility] METABOLIC PANEL (NA, K, CL, CO2, GLUCOSE, BUN, CREATININE, CA)2020-06-29 21:26:57 Test Item Value Reference Range Interpretation Comments NA (test code = 140 mmol/L 135-145 9767441801) K (test code = 4.2 mmol/L 3.5-5.0 3643306994) CL (test code = 100 mmol/L 98-108 6302823479) CO2 TOTAL (test code = 32 mmol/L 23-31 H 8696615361) AGAP (test code = 2-16 9258124141) BUN (test code = 57 mg/dL 7-23 H 8690446157) GLUCOSE (test code = 348 mg/dL 70-110 H 3169951543) CREATININE (test code = 1.07 mg/dL 0.60-1.25 2913430087) CALCIUM (test code = 8.0 mg/dL 8.6-10.6 L 0103671917) eGFR (test code = mL/min/1.73m2 6926427591) eGFR Calculation mL/min/1.73m2 () (test code = 8279146502) MEG (test code = MEG) Association of Glomerular Filtration Rate (GFR) and Staging of Kidney Disease* + --+ --+ ------+| GFR (mL/min/1.73 m2) ?| With Kidney Damage ?| ?Without Kidney Damage+ --------+ --------+ +| ?>90 ?| ?Stage one ?| ? Normal ?+ ---+ ---+ -------+| ?60-89 ?| ?Stage two ?| ? Decreased GFR ? + --+ --+ ------+| ?30-59 ?| ?Stage three ?| ? Stage three ? + --+ --+ ------+| ?15-29 ?| ?Stage four ? | ? Stage four ?+ ---+ ---+ -------+| ?<15 (or dialysis) ? ?| ?Stage five ? | ? Stage five ?+ ---+ ---+ -------+ *Each stage assumes the associated GFR level has been in effect for at least three months. ?Stages 1 to 5, with or without kidney disease, indicate chronic kidney disease. Notes: Determination of stages one and two (with eGFR >59mL/min/1.73 m2) requires estimation of kidney damage for at least three months as defined by structural or functional abnormalities of the kidney, manifested by either:Pathological abnormalities or Markers of kidney damage (including abnormalities in the composition of the blood or urine or abnormalities in imaging tests). Lab Interpretation Abnormal (test code = 94393-8) [facility] Center[facility] 20 + LACTIC [id number] 21:01:03 Test Item Value Reference Range Interpretation Comments PH (test code = 2) 7.35-7.45 PCO2 (test code = See_Comment H [Automate d 9561220348) message] The sy stem which generated this result transmitted reference range : 35 - 45 mmHg. The reference range was not used to interpret this result as normal/abnormal . PO2 (test code = See_Comment [Automated 5409081027) message] The sy stem which generated this result transmitted reference range : 80 - 100 mmHg. The reference range was not used to interpret this result as normal/abnormal . HCO3 (test code = See_Comment H [Automate d 4590026349) message] The sy stem which generated this result transmitted reference range : 22 - 26 mEq/L. The reference range was not used to interpret this result as normal/abnormal . BE (test code = See_Comment H [Automated 6797211612) message] The sy stem which generated this result transmitted reference range : -3.0 - 3.0 mEq/ L. The reference r delano was not used to interpret this result as normal/abnormal . THB (test code = 9.2 g/dL 13.5-18.0 L 0282568241) %O2HB (test code = 94.0 % 94.0-99.0 0146244541) %COHB ART (test code = 0.4 % 0.0-1.5 9566080835) %METHB ART (test code = 0.3 % 0.4-1.5 L 1406635158) VOL%O2 ART (test code = 12.3 % 15.0-23.0 L 5731544344) NA (test code = 139 mmol/L 135-145 4237272919) K+ (test code = 4.8 mmol/L 3.5-5.0 4102133981) AC CA IONZ (test code = 4.60 mg/dL 4.50-5.30 7480566931) GLUCOSE (test code = 403 mg/dL 70-110 H 0433614737) LACTIC ACID (test code 6.10 mmol/L 0.50-2.20 H = 2562399972) Lab Interpretation Abnormal (test code = 74796-8) [facility] [id number] 20:58:42 Test Item Value Reference Range Interpretation Comments SPUTUM CULTURE 1+ Respiratory leelee: (test code = Commensal upper respiratory 622-1) microorganisms only. Gram stain (test Moderate Polymorphonuclear code = 664-3) leukocytes MEG (test code = Bacterial pathogens MEG) associated with lower respiratory infections were not identified, which include Pseudomonas aeruginosa and Staphylococcus aureus (MRSA or MSSA). [facility] CenterMAGNESIUM2021-03-27 19:10:49 Test Item Value Reference Range Interpretation Comments MAGNESIUM (test code = 3322346406) 2.4 mg/dL 1.7-2.4 Lab Interpretation (test code = Normal 42596-9) [facility]BAL[facility] (NA, K, CL, CO2, GLUCOSE, BUN, CREATININE, CA)2020-06-29 18:08:43 Test Item Value Reference Range Interpretation Comments NA (test code = 140 mmol/L 135-145 5891495273) K (test code = 3.9 mmol/L 3.5-5.0 3033015174) CL (test code = 93 mmol/L 98-108 L 5209017432) CO2 TOTAL (test code = 37 mmol/L 23-31 H 3447254795) AGAP (test code = 2-16 4068000863) BUN (test code = 68 mg/dL 7-23 H 9424714372) GLUCOSE (test code = 394 mg/dL 70-110 H 6132351323) CREATININE (test code = 1.09 mg/dL 0.60-1.25 0008111767) CALCIUM (test code = 9.1 mg/dL 8.6-10.6 6694794322) eGFR (test code = mL/min/1.73m2 5829523697) eGFR Calculation mL/min/1.73m2 () (test code = 8062293937) MEG (test code = MEG) Association of Glomerular Filtration Rate (GFR) and Staging of Kidney Disease* + --+ --+ ------+| GFR (mL/min/1.73 m2) ?| With Kidney Damage ?| ?Without Kidney Damage+ --------+ --------+ +| ?>90 ?| ?Stage one ?| ? Normal ?+ ---+ ---+ -------+| ?60-89 ?| ?Stage two ?| ? Decreased GFR ? + --+ --+ ------+| ?30-59 ?| ?Stage three ?| ? Stage three ? + --+ --+ ------+| ?15-29 ?| ?Stage four ? | ? Stage four ?+ ---+ ---+ -------+| ?<15 (or dialysis) ? ?| ?Stage five ? | ? Stage five ?+ ---+ ---+ -------+ *Each stage assumes the associated GFR level has been in effect for at least three months. ?Stages 1 to 5, with or without kidney disease, indicate chronic kidney disease. Notes: Determination of stages one and two (with eGFR >59mL/min/1.73 m2) requires estimation of kidney damage for at least three months as defined by structural or functional abnormalities of the kidney, manifested by either:Pathological abnormalities or Markers of kidney damage (including abnormalities in the composition of the blood or urine or abnormalities in imaging tests). Lab Interpretation Abnormal (test code = 79664-7) [facility] CenterC-REACTIVE [id number] 17:57:49 Test Item Value Reference Range Interpretation Comments CRP (test code = 9138473262) 36.8 mg/dL <0.8 H Lab Interpretation (test code = Abnormal 55707-0) [facility]-REACTIVE [id number] 17:57:49 Test Item Value Reference Range Interpretation Comments CRP (test code = 3550489958) 36.8 mg/dL <0.8 H Lab Interpretation (test code = Abnormal 37702-4) [facility] CenteraPTT (for use with Heparin Drip)2020-06-29 17:51:43 Test Item Value Reference Range Interpretation Comments APTT Patient (test code See_Comment H [Au tomated message] = 3173-2) The system [employer] generated this result transmitted ref erence range: 26 - 36 Seconds. The reference range was not used to int erpret this result as normal/abnormal . Lab Interpretation (test Abnormal code = 39068-2) [facility] CenterN-TERMINAL [id number] 14:40:46 Test Item Value Reference Range Interpretation Comments NT-proBNP (test code 24530 pg/mL See_Comment H [Autom ated = 9199853902) message] The system which generated this result transmitted reference range : <=125. The reference range was not used to interpret this result as normal/abnormal . MEG (test code = MEG) Biotin has been reported to cause a negative bias, interpret results relative to patient's use of biotin. Lab Interpretation Abnormal (test code = 14552-6) [facility] GLUCOSE (AUTOMATED)2020-06-29 12:45:12 Test Item Value Reference Range Interpretation Comments POCT GLU (test code = 8084495079) 410 mg/dL 70-110 H Lab Interpretation (test code = Abnormal 01836-3) [facility] GLUCOSE (AUTOMATED)2020-06-29 09:38:48 Test Item Value Reference Range Interpretation Comments POCT GLU (test code = 5908734348) 382 mg/dL 70-110 H Lab Interpretation (test code = Abnormal 86866-7) [facility] METABOLIC PANEL (NA, K, CL, CO2, GLUCOSE, BUN, CREATININE, CA)2020-06-29 06:45:51 Test Item Value Reference Range Interpretation Comments NA (test code = 140 mmol/L 135-145 9164057633) K (test code = 3.8 mmol/L 3.5-5.0 6864790330) CL (test code = 93 mmol/L 98-108 L 6541437779) CO2 TOTAL (test code = 39 mmol/L 23-31 H 9287448058) AGAP (test code = 2-16 4260921051) BUN (test code = 69 mg/dL 7-23 H 9682584689) GLUCOSE (test code = 415 mg/dL 70-110 H 0898806373) CREATININE (test code = 1.18 mg/dL 0.60-1.25 0092512990) CALCIUM (test code = 9.0 mg/dL 8.6-10.6 6082783215) eGFR (test code = mL/min/1.73m2 8909205452) eGFR Calculation mL/min/1.73m2 () (test code = 4226069985) MEG (test code = MEG) Association of Glomerular Filtration Rate (GFR) and Staging of Kidney Disease* + --+ --+ ------+| GFR (mL/min/1.73 m2) ?| With Kidney Damage ?| ?Without Kidney Damage+ --------+ --------+ +| ?>90 ?| ?Stage one ?| ? Normal ?+ ---+ ---+ -------+| ?60-89 ?| ?Stage two ?| ? Decreased GFR ? + --+ --+ ------+| ?30-59 ?| ?Stage three ?| ? Stage three ? + --+ --+ ------+| ?15-29 ?| ?Stage four ? | ? Stage four ?+ ---+ ---+ -------+| ?<15 (or dialysis) ? ?| ?Stage five ? | ? Stage five ?+ ---+ ---+ -------+ *Each stage assumes the associated GFR level has been in effect for at least three months. ?Stages 1 to 5, with or without kidney disease, indicate chronic kidney disease. Notes: Determination of stages one and two (with eGFR >59mL/min/1.73 m2) requires estimation of kidney damage for at least three months as defined by structural or functional abnormalities of the kidney, manifested by either:Pathological abnormalities or Markers of kidney damage (including abnormalities in the composition of the blood or urine or abnormalities in imaging tests). Lab Interpretation Abnormal (test code = 02426-6) [facility] [id number] 06:29:26 Test Item Value Reference Range Interpretation Comments LDH (test code = 6705868077) 692 U/L 300-600 H Lab Interpretation (test code = Abnormal 24996-2) [facility] [id number] 06:29:26 Test Item Value Reference Range Interpretation Comments LDH (test code = 5600801088) 692 U/L 300-600 H Lab Interpretation (test code = Abnormal 55870-5) [facility] WITH [id number] 06:23:28 Test Item Value Reference Range Interpretation Comments WBC (test code = See_Comment H [Automated 90-2) message] The sy stem which generated this result transmitted reference range : 4.20 - 10.70 10*3/?L. The reference range was not used to interpret this result as normal/abnormal . RBC (test code = See_Comment L [Automated 819-8) message] The sy stem which generated this result transmitted reference range : 4.26 - 5.52 10*6/?L. The reference range was not used to interpret this result as normal/abnormal . HGB (test code = 7.7 g/dL 12.2-16.4 L 718-7) HCT (test code = 27.6 % 38.4-49.3 L 4544-3) MCV (test code = 88.7 fL 81.7-95.6 787-2) MCH (test code = 24.8 pg 26.1-32.7 L 785-6) MCHC (test code = 27.9 g/dL 31.2-35.0 L 786-4) RDW-SD (test code = 58.9 fL 38.5-51.6 H 07854-6) RDW-CV (test code = 18.4 % 12.1-15.4 H 788-0) PLT (test code = See_Comment [Automated 777-3) message] The sy stem which generated this result transmitted reference range : 150 - 328 10*3/ ?L. The reference r delano was not used to interpret this result as normal/abnormal . MPV (test code = 12.7 fL 9.8-13.0 08949-9) NRBC/100 WBC (test See_Comment [Automat ed code = 4420425548) message] The system which generated this result transmitted reference range : 0.0 - 10.0 /100 WBCs. The refer ence range was not u sed to interpret th is result as normal/abnormal . NRBC x10^3 (test code <0.01 See_Comment [Auto mated = 5382668183) message] The s ystem which generated this result transmitted reference range : 10*3/?L. The reference range was not used to interpret this result as normal/abnormal . GRAN MAT (NEUT) % 76.1 % (test code = 770-8) IMM GRAN % (test code 0.50 % = 2031686061) LYMPH % (test code = 13.2 % 736-9) MONO % (test code = 8.0 % 5905-5) EOS % (test code = 2.0 % 713-8) BASO % (test code = 0.2 % 706-2) GRAN MAT x10^3(ANC) 8.42 10*3/uL 1.99-6.95 H (test code = 5908950934) IMM GRAN x10^3 (test 0.06 10*3/uL 0.00-0.06 code = 6454405758) LYMPH x10^3 (test code 1.46 10*3/uL 1.09-3.23 = 731-0) MONO x10^3 (test code 0.88 10*3/uL 0.36-1.02 = 742-7) EOS x10^3 (test code = 0.22 10*3/uL 0.06-0.53 711-2) BASO x10^3 (test code <0.03 0.01-0.09 = 704-7) BASO STIPPLING (test Present A code = 703-9) Lab Interpretation Abnormal (test code = 09049-8) [facility] (for use with Heparin Drip)2020-06-29 05:59:00 Test Item Value Reference Range Interpretation Comments APTT Patient (test code See_Comment H [Au tomated message] = 3173-2) The system [employer] generated this result transmitted ref erence range: 26 - 36 Seconds. The reference range was not used to int erpret this result as normal/abnormal . Lab Interpretation (test Abnormal code = 29581-9) [facility] CenterLaoric Acid Whole [id number] 05:41:44 Test Item Value Reference Range Interpretation Comments LACTIC ACID (test code = 1.62 mmol/L 0.50-2.20 1895033972) Lab Interpretation (test code = Normal 13471-6) [facility] CenterPOTX GLUCOSE (AUTOMATED)2020-06-29 05:13:17 Test Item Value Reference Range Interpretation Comments POCT GLU (test code = 5535658977) 421 mg/dL 70-110 H Lab Interpretation (test code = Abnormal 68410-3) [facility] CenterLAB ONLY COVID [id number] 00:21:53COVID DMT InterpretationInterpretation/Recommendations: Molecular NAAT Tests for Active Infection with the SARS-CoV-2 Virus: The patient has currently tested negative for the SARS-CoV-2 virus that causes COVID-19 illness. This most likely indicates that the patient does not have an active infection with the SARS-CoV-2 virus. However, infection is not completely ruled out as the false negative rate for molecular NAAT testing using a nasopharyngeal sample can be up to 30%, mostly dependent on the timing of sample collection in relation to illness onset and any deficiencies in sampling techniques. If the patient has symptoms concerning for COVID-19 illness, a repeat NAAT test (PCR, Rapid ID Now, etc.) should be performed, at which time the SARS-CoV-2 virus - if present - may have reached a detectable viral load (usually peaking by the end of the first week of symptoms). Tests for IgM and/or IgG Antibodies to the SARS-CoV-2 Virus: If the patient develops COVID-19 illness in the future, testing for IgM and IgG antibodies approximately 3 weeks after illness onset will likely indicate if the patient has produced antibodies to the SARS-CoV-2 virus. However, some patients may take longer to develop detectable antibodies, while some patients who were infected with SARS-CoV-2 may never develop antibodies. While antibodies to SARS-CoV-2 may provide some degree of immunity, at this time the strength and duration of the antibody response is unknown. Interpretation Result Comments:These interpretation comments are based upon all COVID-19 testing the patient has had at [facility], including molecular NAAT testing (more commonly known as PCR testing and Rapid ID Now testing) and antibody testing. It does not take into account any testingthat a patient has had outside of the [facility] medical record. [facility] LABORATORY SERVICESCOVID [id number]-BsO-7 NAAT (no units) ? ? Date ? Value ? 06/28/2020 ? Not Detected ? ? ? 06/19/2020 ? Not Detected ? SARS-CoV-2 Rapid ID NOW (no units) ?? Date ? Value ? 06/19/2020 ? Not Detected ? [facility]2020-06-29 00:02:20 Test Item Value Reference Range Interpretation Comments POCT GLU (test code = 7728492593) 374 mg/dL 70-110 H Lab Interpretation (test code = Abnormal 34879-2) [facility] GLUCOSE (AUTOMATED)2020-06-29 00:02:19 Test Item Value Reference Range Interpretation Comments POCT GLU (test code = 8003621336) 340 mg/dL 70-110 H Lab Interpretation (test code = Abnormal 11867-1) [facility] GLUCOSE (AUTOMATED)2020-06-29 00:02:14 Test Item Value Reference Range Interpretation Comments POCT GLU (test code = 5290517021) 332 mg/dL 70-110 H Lab Interpretation (test code = Abnormal 05069-0) [facility] [id number] 22:15:20 Test Item Value Reference Range Interpretation Comments HIV Negative Negative Semi-quantitative (test code = 50634-9) MEG (test code = Non-reactive for HIV-1 MEG) antigen and HIV-1/HIV-2 antibodies. ?No laboratory evidence of HIV infection. ?Repeat in 2-4 weeks if acute HIV infection is suspected. [facility] 1/2 AG-AB WITH [id number] 22:15:20 Test Item Value Reference Range Interpretation Comments HIV Negative Negative Semi-quantitative (test code = 18801-7) MEG (test code = Non-reactive for HIV-1 MEG) antigen and HIV-1/HIV-2 antibodies. ?No laboratory evidence of HIV infection. ?Repeat in 2-4 weeks if acute HIV infection is suspected. [facility] CenterBLOOD CULTURE [id number] 22:01:37 Test Item Value Reference Range Interpretation Comments Blood Culture-Aerobic No organisms No growth Previo us (test code = 73579-8) isolated prelim inary verified result was Culture In Progress on 06/23/2020 at 20 01 CDTPrevious preliminary verified result was No growth a t 24 hours on 06/24/2020 at 17 01 CDTPrevious preliminary verified result was No growth a t 48 hours on 06/25/2020 at 17 01 CDTPrevious preliminary verified result was No growth a t 72 hours on 06/26/2020 at 17 01 CDT Blood No organisms No growth Previous Culture-Anaerobic isolated preliminar y (test code = 49498-0) verifi ed result was Culture In Progress on 06/23/2020 at 20 01 CDTPrevious preliminary verified result was No growth a t 24 hours on 06/24/2020 at 17 CDTPrevious preliminary verified result was No growth a t 48 hours on 06/25/2020 at 17 CDTPrevious preliminary verified result was No growth a t 72 hours on 06/26/2020 at 17 01 CDT Lab Interpretation Normal (test code = 72034-8) [facility] CenterBLOOD CULTURE [id number] 22:01:37 Test Item Value Reference Range Interpretation Comments Blood Culture-Aerobic No organisms No growth Previo us (test code = 63546-1) isolated prelim inary verified result was Culture In Progress on 06/23/2020 at 20 CDTPrevious preliminary verified result was No growth a t 24 hours on 06/24/2020 at 17 CDTPrevious preliminary verified result was No growth a t 48 hours on 06/25/2020 at 17 01 CDTPrevious preliminary verified result was No growth a t 72 hours on 06/26/2020 at 17 01 CDT Blood No organisms No growth Previous Culture-Anaerobic isolated preliminar y (test code = 46052-6) verifi ed result was Culture In Progress on 06/23/2020 at 20 CDTPrevious preliminary verified result was No growth a t 24 hours on 06/24/2020 at 17 CDTPrevious preliminary verified result was No growth a t 48 hours on 06/25/2020 at 17 01 CDTPrevious preliminary verified result was No growth a t 72 hours on 06/26/2020 at 17 01 CDT Lab Interpretation Normal (test code = 06557-0) [facility] CenterSEDIMENTATION [id number] 21:51:05 Test Item Value Reference Range Interpretation Comments ESR (test code = See_Comment H [Automated message] 3145377406) The system [employer] generated this result transmitted ref erence range: 0 - 10 m m/HR. The reference r delano was not used to interpret this result as normal/abnor mal. Lab Interpretation (test Abnormal code = 24367-1) [facility] CenterSEDIMENTATION [id number] 21:51:05 Test Item Value Reference Range Interpretation Comments ESR (test code = See_Comment H [Automated message] 8076639640) The system [employer] generated this result transmitted ref erence range: 0 - 10 m m/HR. The reference r delano was not used to interpret this result as normal/abnor mal. Lab Interpretation (test Abnormal code = 64243-6) [facility] CenterHEPATIC FUNCTION PANEL (70339) (ALB,T.PRO,BILI T,BU/BC,ALT,AST,ALK PHOS)2020-06-28 21:35:52 Test Item Value Reference Range Interpretation Comments TOTAL BILI (test code = 2008111458) 1.1 mg/dL 0.1-1.1 BILI UNCON (test code = 4022415459) 0.4 mg/dL 0.1-1.1 BILI CONJ (test code = 1875706846) 0.0 mg/dL 0.0-0.3 T PROTEIN (test code = 6008673905) 6.7 g/dL 6.3-8.2 ALBUMIN (test code = 1946993336) 3.1 g/dL 3.5-5.0 L ALK PHOS (test code = 7806304276) 233 U/L 34-122 H ALTv (test code = 1742-6) 73 U/L 5-50 H AST(SGOT) (test code = 7810036458) 116 U/L 13-40 H Lab Interpretation (test code = Abnormal 13260-4) [facility] CenterBASI METABOLIC PANEL (NA, K, CL, CO2, GLUCOSE, BUN, CREATININE, CA)2020-06-28 19:20:13 Test Item Value Reference Range Interpretation Comments NA (test code = 142 mmol/L 135-145 6013602001) K (test code = 3.9 mmol/L 3.5-5.0 0521262136) CL (test code = 96 mmol/L 98-108 L 3103800361) CO2 TOTAL (test code = 40 mmol/L 23-31 H 3954131384) AGAP (test code = 2-16 8515697550) BUN (test code = 71 mg/dL 7-23 H 1992958058) GLUCOSE (test code = 363 mg/dL 70-110 H 5128337694) CREATININE (test code = 1.25 mg/dL 0.60-1.25 9152947276) CALCIUM (test code = 8.9 mg/dL 8.6-10.6 8096438084) eGFR (test code = mL/min/1.73m2 1908670381) eGFR Calculation mL/min/1.73m2 () (test code = 9383669892) MEG (test code = MEG) Association of Glomerular Filtration Rate (GFR) and Staging of Kidney Disease* + --+ --+ ------+| GFR (mL/min/1.73 m2) ?| With Kidney Damage ?| ?Without Kidney Damage+ --------+ --------+ +| ?>90 ?| ?Stage one ?| ? Normal ?+ ---+ ---+ -------+| ?60-89 ?| ?Stage two ?| ? Decreased GFR ? + --+ --+ ------+| ?30-59 ?| ?Stage three ?| ? Stage three ? + --+ --+ ------+| ?15-29 ?| ?Stage four ? | ? Stage four ?+ ---+ ---+ -------+| ?<15 (or dialysis) ? ?| ?Stage five ? | ? Stage five ?+ ---+ ---+ -------+ *Each stage assumes the associated GFR level has been in effect for at least three months. ?Stages 1 to 5, with or without kidney disease, indicate chronic kidney disease. Notes: Determination of stages one and two (with eGFR >59mL/min/1.73 m2) requires estimation of kidney damage for at least three months as defined by structural or functional abnormalities of the kidney, manifested by either:Pathological abnormalities or Markers of kidney damage (including abnormalities in the composition of the blood or urine or abnormalities in imaging tests). Lab Interpretation Abnormal (test code = 83140-1) [facility] [id number] 19:06:43 Test Item Value Reference Range Interpretation Comments URINE CULTURE (test No aerobic growth (< code = 630-4) 1000 CFU/mL) [facility] CenteraPTT (for use with Heparin Drip)2020-06-28 18:53:42 Test Item Value Reference Range Interpretation Comments APTT Patient (test code See_Comment H [Au tomated message] = 3173-2) The system [employer] generated this result transmitted ref erence range: 26 - 36 Seconds. The reference range was not used to int erpret this result as normal/abnormal . Lab Interpretation (test Abnormal code = 97856-1) [facility] GLUCOSE (AUTOMATED)2020-06-28 16:57:07 Test Item Value Reference Range Interpretation Comments POCT GLU (test code = 7385558494) 321 mg/dL 70-110 H Lab Interpretation (test code = Abnormal 90467-3) [facility] CenterMAGNESIUM2021-03-26 13:17:23 Test Item Value Reference Range Interpretation Comments MAGNESIUM (test code = 8856302175) 2.7 mg/dL 1.7-2.4 H Lab Interpretation (test code = Abnormal 34402-9) [facility] GLUCOSE (AUTOMATED)2020-06-28 12:38:42 Test Item Value Reference Range Interpretation Comments POCT GLU (test code = 5936479537) 335 mg/dL 70-110 H Lab Interpretation (test code = Abnormal 81919-2) [facility] CenterCORONAVIRUS COVID-19 [id number] 10:55:36 Test Item Value Reference Range Interpretation Comments SARS-CoV-2 NAAT (test Not Detected Not Detected code = 62087-5) MEG (test code = MEG) [place] Fusion SARS-CoV-2 Assay is a real-time RT-PCR test intended for the qualitative detection of RNA from SARS-CoV-2 from nasopharyngeal (DOCTORATE OF CHIROPRACTIC) specimens. It is used under Emergency Use Authorization (EUA) by FDA. A positive result is indicative of the presence of SARS-CoV-2 RNA. ?Clinical correlation with patient history and other diagnostic information is necessary to determine patient infection status. A negative (Not Detected) result does not preclude SARS-CoV-2 infection. Clinical correlation with patient history and other diagnostic information should be used in patient management decisions. Invalid: Please collect a new specimen for repeat patient testing if clinically indicated. Lab Interpretation Normal (test code = 01245-4) [facility] CenterCORONAVIRUS COVID-19 [id number] 10:55:36 Test Item Value Reference Range Interpretation Comments SARS-CoV-2 NAAT (test Not Detected Not Detected code = 89058-3) MEG (test code = MEG) [place] [employer] SARS-CoV-2 Assay is a real-time RT-PCR test intended for the qualitative detection of RNA from SARS-CoV-2 from nasopharyngeal (DOCTORATE OF CHIROPRACTIC) specimens. It is used under Emergency Use Authorization (EUA) by FDA. A positive result is indicative of the presence of SARS-CoV-2 RNA. ?Clinical correlation with patient history and other diagnostic information is necessary to determine patient infection status. A negative (Not Detected) result does not preclude SARS-CoV-2 infection. Clinical correlation with patient history and other diagnostic information should be used in patient management decisions. Invalid: Please collect a new specimen for repeat patient testing if clinically indicated. Lab Interpretation Normal (test code = 25572-2) [facility] CenterBASIC METABOLIC PANEL (NA, K, CL, CO2, GLUCOSE, BUN, CREATININE, CA)2020-06-28 08:01:45 Test Item Value Reference Range Interpretation Comments NA (test code = 144 mmol/L 135-145 7861117260) K (test code = 3.6 mmol/L 3.5-5.0 2836754699) CL (test code = 97 mmol/L 98-108 L 7223026829) CO2 TOTAL (test code = 38 mmol/L 23-31 H 2210565263) AGAP (test code = 2-16 1958106716) BUN (test code = 83 mg/dL 7-23 H 6502524663) GLUCOSE (test code = 292 mg/dL 70-110 H 1308822291) CREATININE (test code = 1.43 mg/dL 0.60-1.25 H 6359123669) CALCIUM (test code = 8.9 mg/dL 8.6-10.6 3473895830) eGFR (test code = mL/min/1.73m2 7018568987) eGFR Calculation mL/min/1.73m2 () (test code = 4733337790) MEG (test code = MEG) Association of Glomerular Filtration Rate (GFR) and Staging of Kidney Disease* + --+ --+ ------+| GFR (mL/min/1.73 m2) ?| With Kidney Damage ?| ?Without Kidney Damage+ --------+ --------+ +| ?>90 ?| ?Stage one ?| ? Normal ?+ ---+ ---+ -------+| ?60-89 ?| ?Stage two ?| ? Decreased GFR ? + --+ --+ ------+| ?30-59 ?| ?Stage three ?| ? Stage three ? + --+ --+ ------+| ?15-29 ?| ?Stage four ? | ? Stage four ?+ ---+ ---+ -------+| ?<15 (or dialysis) ? ?| ?Stage five ? | ? Stage five ?+ ---+ ---+ -------+ *Each stage assumes the associated GFR level has been in effect for at least three months. ?Stages 1 to 5, with or without kidney disease, indicate chronic kidney disease. Notes: Determination of stages one and two (with eGFR >59mL/min/1.73 m2) requires estimation of kidney damage for at least three months as defined by structural or functional abnormalities of the kidney, manifested by either:Pathological abnormalities or Markers of kidney damage (including abnormalities in the composition of the blood or urine or abnormalities in imaging tests). Lab Interpretation Abnormal (test code = 68935-5) [facility] WITH [id number] 07:53:29 Test Item Value Reference Range Interpretation Comments WBC (test code = See_Comment H [Automated 6617-2) message] The sy stem which generated this result transmitted reference range : 4.20 - 10.70 10*3/?L. The reference range was not used to interpret this result as normal/abnormal . RBC (test code = See_Comment L [Automated 219-8) message] The sy stem which generated this result transmitted reference range : 4.26 - 5.52 10*6/?L. The reference range was not used to interpret this result as normal/abnormal . HGB (test code = 7.6 g/dL 12.2-16.4 L 718-7) HCT (test code = 27.5 % 38.4-49.3 L 4544-3) MCV (test code = 90.8 fL 81.7-95.6 787-2) MCH (test code = 25.1 pg 26.1-32.7 L 785-6) MCHC (test code = 27.6 g/dL 31.2-35.0 L 786-4) RDW-SD (test code = 60.9 fL 38.5-51.6 H 28610-7) RDW-CV (test code = 18.6 % 12.1-15.4 H 788-0) PLT (test code = See_Comment L [Automated 777-3) message] The sy stem which generated this result transmitted reference range : 150 - 328 10*3/ ?L. The reference r delano was not used to interpret this result as normal/abnormal . MPV (test code = 12.1 fL 9.8-13.0 17216-1) NRBC/100 WBC (test See_Comment [Automat ed code = 9652570051) message] The system which generated this result transmitted reference range : 0.0 - 10.0 /100 WBCs. The refer ence range was not u sed to interpret th is result as normal/abnormal . NRBC x10^3 (test code <0.01 See_Comment [Auto mated = 5386010480) message] The s ystem which generated this result transmitted reference range : 10*3/?L. The reference range was not used to interpret this result as normal/abnormal . GRAN MAT (NEUT) % 78.5 % (test code = 770-8) IMM GRAN % (test code 0.50 % = 1054968088) LYMPH % (test code = 11.7 % 736-9) MONO % (test code = 6.7 % 5905-5) EOS % (test code = 2.5 % 713-8) BASO % (test code = 0.1 % 706-2) GRAN MAT x10^3(ANC) 8.84 10*3/uL 1.99-6.95 H (test code = 4796372281) IMM GRAN x10^3 (test 0.06 10*3/uL 0.00-0.06 code = 9759053278) LYMPH x10^3 (test code 1.32 10*3/uL 1.09-3.23 = 731-0) MONO x10^3 (test code 0.76 10*3/uL 0.36-1.02 = 742-7) EOS x10^3 (test code = 0.28 10*3/uL 0.06-0.53 711-2) BASO x10^3 (test code <0.03 0.01-0.09 = 704-7) BASO STIPPLING (test Present A code = 703-9) Lab Interpretation Abnormal (test code = 45092-7) [facility] [id number] 07:17:38 Test Item Value Reference Range Interpretation Comments LACTIC ACID (test code = 1.31 mmol/L 0.50-2.20 8606769026) Lab Interpretation (test code = Normal 51193-1) [facility] (for use with Heparin Drip)2020-06-28 06:22:14 Test Item Value Reference Range Interpretation Comments APTT Patient (test code See_Comment H [Au tomated message] = 3173-2) The system [employer] generated this result transmitted ref erence range: 26 - 36 Seconds. The reference range was not used to int erpret this result as normal/abnormal . Lab Interpretation (test Abnormal code = 85197-1) [facility] + LACTIC [id number] 03:02:13 Test Item Value Reference Range Interpretation Comments PH (test code = 2) 7.35-7.45 PCO2 (test code = See_Comment H [Automate d 8980509547) message] The sy stem which generated this result transmitted reference range : 35 - 45 mmHg. The reference range was not used to interpret this result as normal/abnormal . PO2 (test code = See_Comment L [Automated 0144336831) message] The sy stem which generated this result transmitted reference range : 80 - 100 mmHg. The reference range was not used to interpret this result as normal/abnormal . HCO3 (test code = See_Comment H [Automate d 9971803131) message] The sy stem which generated this result transmitted reference range : 22 - 26 mEq/L. The reference range was not used to interpret this result as normal/abnormal . BE (test code = See_Comment H [Automated 1336991573) message] The sy stem which generated this result transmitted reference range : -3.0 - 3.0 mEq/ L. The reference r delano was not used to interpret this result as normal/abnormal . THB (test code = 8.2 g/dL 13.5-18.0 LL 2016929961) %O2HB (test code = 81.2 % 94.0-99.0 L 8817215586) %COHB ART (test code = 0.9 % 0.0-1.5 1613484599) %METHB ART (test code = 0.2 % 0.4-1.5 L 7229851698) VOL%O2 ART (test code = 9.4 % 15.0-23.0 L 4969503059) NA (test code = 144 mmol/L 135-145 9074451739) K+ (test code = 4.2 mmol/L 3.5-5.0 1938578394) AC CA IONZ (test code = 4.40 mg/dL 4.50-5.30 L 9676196447) GLUCOSE (test code = 296 mg/dL 70-110 H 9118195164) LACTIC ACID (test code 1.88 mmol/L 0.50-2.20 = 1590738572) Lab Interpretation Abnormal (test code = 08503-0) [facility] + LACTIC [id number] 02:57:20 Test Item Value Reference Range Interpretation Comments PH (test code = 7.32-7.42 1977951330) PCO2 CLAUDINE (test code = See_Comment H [Auto mated 2179408713) message] The sy stem which generated this result transmitted reference range : 41 - 51 mmHg. The reference range was not used to interpret this result as normal/abnormal . PO2 CLAUDINE (test code = See_Comment HH [Autom ated 8628854800) message] The sy stem which generated this result transmitted reference range : 25 - 40 mmHg. The reference range was not used to interpret this result as normal/abnormal . HCO3 CLAUDINE (test code = See_Comment H [Auto mated 5941533780) message] The sy stem which generated this result transmitted reference range : 24 - 28 mEq/L. The reference range was not used to interpret this result as normal/abnormal . AC VBE(BEAKER) (test mEq/L code = 9044564216) THB CLAUDINE (test code = 8.3 g/dL 13.5-18.0 LL 0776724461) %O2HB CLAUDINE (test code = 90.1 % 52.0-63.0 H 5688940363) %COHB CLAUDINE (test code = 0.8 % 0.0-1.5 1791421692) %METHB CLAUDINE (test code = 0.2 % 0.4-1.5 L 7580081887) VOL%O2 CLAUDINE (test code = 10.6 % 6.0-12.0 1224368011) NA (test code = 143 mmol/L 135-145 3414366939) K+ (test code = 4.0 mmol/L 3.5-5.0 3611187981) AC CA IONZ (test code = 4.50 mg/dL 4.50-5.30 6703779970) GLUCOSE (test code = 297 mg/dL 70-110 H 7690228143) LACTIC ACID (test code 1.75 mmol/L 0.50-2.20 = 8151934283) Lab Interpretation Abnormal (test code = 65742-1) [facility] GLUCOSE (AUTOMATED)2020-06-28 02:12:35 Test Item Value Reference Range Interpretation Comments POCT GLU (test code = 7184293344) 322 mg/dL 70-110 H Lab Interpretation (test code = Abnormal 02312-1) [facility] GLUCOSE (AUTOMATED)2020-06-28 00:51:17 Test Item Value Reference Range Interpretation Comments POCT GLU (test code = 7576577439) 299 mg/dL 70-110 H Lab Interpretation (test code = Abnormal 32790-4) [facility] METABOLIC PANEL (NA, K, CL, CO2, GLUCOSE, BUN, CREATININE, CA)2020-06-27 22:39:55 Test Item Value Reference Range Interpretation Comments NA (test code = 146 mmol/L 135-145 H 2700558511) K (test code = 4.0 mmol/L 3.5-5.0 6751588905) CL (test code = 96 mmol/L 98-108 L 9915418710) CO2 TOTAL (test code = 43 mmol/L 23-31 H 3812819669) AGAP (test code = 2-16 4805732138) BUN (test code = 90 mg/dL 7-23 H 6248056654) GLUCOSE (test code = 301 mg/dL 70-110 H 2768021803) CREATININE (test code = 1.74 mg/dL 0.60-1.25 H 8276258092) CALCIUM (test code = 8.8 mg/dL 8.6-10.6 0464857690) eGFR (test code = mL/min/1.73m2 9823885034) eGFR Calculation mL/min/1.73m2 () (test code = 1084919684) MEG (test code = MEG) Association of Glomerular Filtration Rate (GFR) and Staging of Kidney Disease* + --+ --+ ------+| GFR (mL/min/1.73 m2) ?| With Kidney Damage ?| ?Without Kidney Damage+ --------+ --------+ +| ?>90 ?| ?Stage one ?| ? Normal ?+ ---+ ---+ -------+| ?60-89 ?| ?Stage two ?| ? Decreased GFR ? + --+ --+ ------+| ?30-59 ?| ?Stage three ?| ? Stage three ? + --+ --+ ------+| ?15-29 ?| ?Stage four ? | ? Stage four ?+ ---+ ---+ -------+| ?<15 (or dialysis) ? ?| ?Stage five ? | ? Stage five ?+ ---+ ---+ -------+ *Each stage assumes the associated GFR level has been in effect for at least three months. ?Stages 1 to 5, with or without kidney disease, indicate chronic kidney disease. Notes: Determination of stages one and two (with eGFR >59mL/min/1.73 m2) requires estimation of kidney damage for at least three months as defined by structural or functional abnormalities of the kidney, manifested by either:Pathological abnormalities or Markers of kidney damage (including abnormalities in the composition of the blood or urine or abnormalities in imaging tests). Lab Interpretation Abnormal (test code = 18688-9) [facility] CenterVancomycin Random [id number] 22:26:21 Test Item Value Reference Range Interpretation Comments VANCO RANDOM (test code = 6.9 ug/mL 9823847258) [facility] CenterMAG[facility]UM2021-[facility]-25 22:21:17 Test Item Value Reference Range Interpretation Comments MAGNESIUM (test code = 9441727470) 2.6 mg/dL 1.7-2.4 H Lab Interpretation (test code = Abnormal 49245-6) [facility] (for use with Heparin Drip)2020-06-27 19:00:20 Test Item Value Reference Range Interpretation Comments APTT Patient (test code See_Comment H [Au tomated message] = 3173-2) The system whic h generated this result transmitted ref erence range: 26 - 36 Seconds. The reference range was not used to int erpret this result as normal/abnormal . Lab Interpretation (test Abnormal code = 88454-5) [facility] CenterPO[facility] (AUTOMATED)2020-06-27 18:16:55 Test Item Value Reference Range Interpretation Comments POCT GLU (test code = 3533038729) 316 mg/dL 70-110 H Lab Interpretation (test code = Abnormal 41354-9) [facility] 20 + LACTIC [id number] 18:15:01 Test Item Value Reference Range Interpretation Comments PH (test code = 2) 7.35-7.45 H PCO2 (test code = See_Comment H [Automate d 1697363524) message] The sy stem which generated this result transmitted reference range : 35 - 45 mmHg. The reference range was not used to interpret this result as normal/abnormal . PO2 (test code = See_Comment L [Automated 6080087094) message] The sy stem which generated this result transmitted reference range : 80 - 100 mmHg. The reference range was not used to interpret this result as normal/abnormal . HCO3 (test code = See_Comment H [Automate d 8235746227) message] The sy stem which generated this result transmitted reference range : 22 - 26 mEq/L. The reference range was not used to interpret this result as normal/abnormal . BE (test code = See_Comment H [Automated 1023778629) message] The sy stem which generated this result transmitted reference range : -3.0 - 3.0 mEq/ L. The reference r delano was not used to interpret this result as normal/abnormal . THB (test code = 8.5 g/dL 13.5-18.0 L 4031002151) %O2HB (test code = 91.8 % 94.0-99.0 L 5090428301) %COHB ART (test code = 0.6 % 0.0-1.5 2092427655) %METHB ART (test code = 0.0 % 0.4-1.5 L 7008398556) VOL%O2 ART (test code = 11.1 % 15.0-23.0 L 7158024988) NA (test code = 143 mmol/L 135-145 9230231544) K+ (test code = 4.1 mmol/L 3.5-5.0 2588084852) AC CA IONZ (test code = 4.40 mg/dL 4.50-5.30 L 8572721773) GLUCOSE (test code = 315 mg/dL 70-110 H 8549326805) LACTIC ACID (test code 1.25 mmol/L 0.50-2.20 = 7689984371) Lab Interpretation Abnormal (test code = 90965-7) [facility] WITH [id number] 14:55:28 Test Item Value Reference Range Interpretation Comments WBC (test code = See_Comment [Automated 6690-2) message] The sy stem which generated this result transmitted reference range : 4.20 - 10.70 10*3/?L. The reference range was not used to interpret this result as normal/abnormal . RBC (test code = See_Comment L [Automated 789-8) message] The sy stem which generated this result transmitted reference range : 4.26 - 5.52 10*6/?L. The reference range was not used to interpret this result as normal/abnormal . HGB (test code = 7.8 g/dL 12.2-16.4 L 718-7) HCT (test code = 29.4 % 38.4-49.3 L 4544-3) MCV (test code = 92.2 fL 81.7-95.6 787-2) MCH (test code = 24.5 pg 26.1-32.7 L 785-6) MCHC (test code = 26.5 g/dL 31.2-35.0 L 786-4) RDW-SD (test code = 63.7 fL 38.5-51.6 H 93449-6) RDW-CV (test code = 18.9 % 12.1-15.4 H 788-0) PLT (test code = See_Comment [Automated 777-3) message] The sy stem which generated this result transmitted reference range : 150 - 328 10*3/ ?L. The reference r delano was not used to interpret this result as normal/abnormal . MPV (test code = 12.0 fL 9.8-13.0 29417-9) NRBC/100 WBC (test See_Comment [Automat ed code = 8841664038) message] The system which generated this result transmitted reference range : 0.0 - 10.0 /100 WBCs. The refer ence range was not u sed to interpret th is result as normal/abnormal . NRBC x10^3 (test code <0.01 See_Comment [Auto mated = 3822205914) message] The s ystem which generated this result transmitted reference range : 10*3/?L. The reference range was not used to interpret this result as normal/abnormal . GRAN MAT (NEUT) % 77.3 % (test code = 770-8) IMM GRAN % (test code 0.40 % = 5445546658) LYMPH % (test code = 12.4 % 736-9) MONO % (test code = 6.1 % 5905-5) EOS % (test code = 3.6 % 713-8) BASO % (test code = 0.2 % 706-2) GRAN MAT x10^3(ANC) 7.95 10*3/uL 1.99-6.95 H (test code = 9439439788) IMM GRAN x10^3 (test 0.04 10*3/uL 0.00-0.06 code = 2442096052) LYMPH x10^3 (test code 1.27 10*3/uL 1.09-3.23 = 731-0) MONO x10^3 (test code 0.63 10*3/uL 0.36-1.02 = 742-7) EOS x10^3 (test code = 0.37 10*3/uL 0.06-0.53 711-2) BASO x10^3 (test code <0.03 0.01-0.09 = 704-7) Lab Interpretation Abnormal (test code = 50119-7) [facility] CenterXR CHEST 1 [id number] 13:56:56EXAM: XR CHEST 1 VW HISTORY: sepsis COMPARISON: None. FINDINGS: The tip of the endotracheal tube is at the level of the arch of the aorta,well above the jolly, and the tip of the right IJ line is deepin thesuperior vena cava. The heart is not enlarged but the aorta is partlycalcified. Hilar vascularcongestion persists along with an opacity in theleft lung base that may be due to atelectasis or pneumonia. The lungs aremoderately well expanded and clear otherwise. ? Lamb, Radiant Results Inft User - 06/27/2020 8:58 AM CDTEXAM: XR CHEST 1 VWHISTORY: sepsis COMPARISON: None.FINDINGS:The tip of the endotracheal tube is at the level of the arch of the aorta,well above the jolly, and the tip of the right IJ line is deep in thesuperior vena cava. The heart is not enlarged but the aorta is partlycalcif ied. Hilar vascular congestion persists along with an opacity in theleft lung base that may be due to atelectasis or pneumonia. The lungs aremoderately well expanded and clear otherwise.[facility] CenterURINALYSIS 2020-06-27 13:52:17 Test Item Value Reference Range Interpretation Comments APPEARANCE (test code = Cloudy Clear A 2533914722) COLOR (test code = Addie Yellow A 7260745980) PH (test code = 4.8-8.0 8711809122) SP GRAVITY (test code = 1.003-1.030 5896269804) GLU U QUAL (test code = Normal Normal 5548174723) BLOOD (test code = 3+ Negative A 3416868952) KETONES (test code = Negative Negative 0070517396) PROTEIN (test code = 100 mg/dL Negative A 2887-8) UROBILIN (test code = 2.0 mg/dL Normal A 2538755016) BILIRUBIN (test code = Negative Negative 1696872146) NITRITE (test code = Negative Negative 9915546596) LEUK BARTOLO (test code = Negative Negative 2511867993) RBC/HPF (test code = See_Comment H [Autom ated message] 6838468389) The system [employer] generated this result transmit glo reference range : 0 - 3 HPF. The refe rence range was not u sed to interpret th is result as normal/abnormal . WBC/HPF (test code = See_Comment [Autom ated message] 4811301076) The system [employer] generated this result transmit glo reference range : 0 - 5 HPF. The refe rence range was not u sed to interpret th is result as normal/abnormal . BACTERIA (test code = Negative Negative 3019914526) AMORPHOUS (test code = Few Rare HPF A 4983822987) Lab Interpretation (test Abnormal code = 50056-5) [facility] CenterPOT[facility] GLUCOSE (AUTOMATED)2020-06-27 12:50:10 Test Item Value Reference Range Interpretation Comments POCT GLU (test code = 0188731546) 236 mg/dL 70-110 H Lab Interpretation (test code = Abnormal 13387-6) [facility] METABOLIC PANEL (NA, K, CL, CO2, GLUCOSE, BUN, CREATININE, CA)2020-06-27 09:53:12 Test Item Value Reference Range Interpretation Comments NA (test code = 147 mmol/L 135-145 H 5124518729) K (test code = 4.1 mmol/L 3.5-5.0 8715070942) CL (test code = 95 mmol/L 98-108 L 5429167796) CO2 TOTAL (test code = 45 mmol/L 23-31 H 9359689538) AGAP (test code = 2-16 9917951055) BUN (test code = 91 mg/dL 7-23 H 3546503016) GLUCOSE (test code = 229 mg/dL 70-110 H 0653533156) CREATININE (test code = 1.94 mg/dL 0.60-1.25 H 8984480819) CALCIUM (test code = 8.9 mg/dL 8.6-10.6 5860117057) eGFR (test code = mL/min/1.73m2 2440961906) eGFR Calculation mL/min/1.73m2 () (test code = 4151003254) MEG (test code = MEG) Association of Glomerular Filtration Rate (GFR) and Staging of Kidney Disease* + --+ --+ ------+| GFR (mL/min/1.73 m2) ?| With Kidney Damage ?| ?Without Kidney Damage+ --------+ --------+ +| ?>90 ?| ?Stage one ?| ? Normal ?+ ---+ ---+ -------+| ?60-89 ?| ?Stage two ?| ? Decreased GFR ? + --+ --+ ------+| ?30-59 ?| ?Stage three ?| ? Stage three ? + --+ --+ ------+| ?15-29 ?| ?Stage four ? | ? Stage four ?+ ---+ ---+ -------+| ?<15 (or dialysis) ? ?| ?Stage five ? | ? Stage five ?+ ---+ ---+ -------+ *Each stage assumes the associated GFR level has been in effect for at least three months. ?Stages 1 to 5, with or without kidney disease, indicate chronic kidney disease. Notes: Determination of stages one and two (with eGFR >59mL/min/1.73 m2) requires estimation of kidney damage for at least three months as defined by structural or functional abnormalities of the kidney, manifested by either:Pathological abnormalities or Markers of kidney damage (including abnormalities in the composition of the blood or urine or abnormalities in imaging tests). Lab Interpretation Abnormal (test code = 85060-8) [facility] WITH [id number] 09:47:14 Test Item Value Reference Range Interpretation Comments WBC (test code = See_Comment [Automated 8677-2) message] The sy stem which generated this result transmitted reference range : 4.20 - 10.70 10*3/?L. The reference range was not used to interpret this result as normal/abnormal . RBC (test code = See_Comment L [Automated 390-8) message] The sy stem which generated this result transmitted reference range : 4.26 - 5.52 10*6/?L. The reference range was not used to interpret this result as normal/abnormal . HGB (test code = 7.7 g/dL 12.2-16.4 L 718-7) HCT (test code = 28.8 % 38.4-49.3 L 4544-3) MCV (test code = 92.0 fL 81.7-95.6 787-2) MCH (test code = 24.6 pg 26.1-32.7 L 785-6) MCHC (test code = 26.7 g/dL 31.2-35.0 L 786-4) RDW-SD (test code = 62.6 fL 38.5-51.6 H 11220-2) RDW-CV (test code = 18.9 % 12.1-15.4 H 788-0) PLT (test code = See_Comment L [Automated 777-3) message] The sy stem which generated this result transmitted reference range : 150 - 328 10*3/ ?L. The reference r delano was not used to interpret this result as normal/abnormal . MPV (test code = 11.6 fL 9.8-13.0 24698-7) NRBC/100 WBC (test See_Comment [Automat ed code = 9252372721) message] The system which generated this result transmitted reference range : 0.0 - 10.0 /100 WBCs. The refer ence range was not u sed to interpret th is result as normal/abnormal . NRBC x10^3 (test code See_Comment [Auto mated = 9744933286) message] The s ystem which generated this result transmitted reference range : 10*3/?L. The reference range was not used to interpret this result as normal/abnormal . GRAN MAT (NEUT) % 70.4 % (test code = 770-8) IMM GRAN % (test code 0.40 % = 7200636293) LYMPH % (test code = 18.2 % 736-9) MONO % (test code = 7.0 % 5905-5) EOS % (test code = 3.8 % 713-8) BASO % (test code = 0.2 % 706-2) GRAN MAT x10^3(ANC) 6.59 10*3/uL 1.99-6.95 (test code = 0842827278) IMM GRAN x10^3 (test 0.04 10*3/uL 0.00-0.06 code = 7910478244) LYMPH x10^3 (test code 1.71 10*3/uL 1.09-3.23 = 731-0) MONO x10^3 (test code 0.66 10*3/uL 0.36-1.02 = 742-7) EOS x10^3 (test code = 0.36 10*3/uL 0.06-0.53 711-2) BASO x10^3 (test code <0.03 0.01-0.09 = 704-7) Lab Interpretation Abnormal (test code = 74946-0) [facility]2021-[facility]-25 09:27:09 Test Item Value Reference Range Interpretation Comments MAGNESIUM (test code = 9353996113) 2.6 mg/dL 1.7-2.4 H Lab Interpretation (test code = Abnormal 96714-5) [facility] GLUCOSE (AUTOMATED)2020-06-27 08:49:12 Test Item Value Reference Range Interpretation Comments POCT GLU (test code = 3450654145) 239 mg/dL 70-110 H Lab Interpretation (test code = Abnormal 71520-7) [facility] CenterLaoric Acid Whole [id number] 08:47:05 Test Item Value Reference Range Interpretation Comments LACTIC ACID (test code = 1.44 mmol/L 0.50-2.20 2404745647) Lab Interpretation (test code = Normal 29416-6) [facility] (for use with Heparin Drip)2020-06-27 05:18:04 Test Item Value Reference Range Interpretation Comments APTT Patient (test code See_Comment H [Au tomated message] = 3173-2) The system [employer] generated this result transmitted ref erence range: 26 - 36 Seconds. The reference range was not used to int erpret this result as normal/abnormal . Lab Interpretation (test Abnormal code = 88035-4) [facility] GLUCOSE (AUTOMATED)2020-06-27 05:04:42 Test Item Value Reference Range Interpretation Comments POCT GLU (test code = 7947723907) 214 mg/dL 70-110 H Lab Interpretation (test code = Abnormal 70062-1) [facility] CenterSODIUM, URINE [id number] 03:43:01 Test Item Value Reference Range Interpretation Comments NA URINE (test code = 6455093411) 9 mmol/L [facility] CenterCREATININE, URINE [id number] 03:43:01 Test Item Value Reference Range Interpretation Comments CREAT U (test code = 3848973232) 111.9 mg/dL [facility] CenterCREATININE, URINE [id number] 03:43:01 Test Item Value Reference Range Interpretation Comments CREAT U (test code = 7271173258) 111.9 mg/dL [facility] CenterSODIUM, URINE [id number] 03:43:01 Test Item Value Reference Range Interpretation Comments NA URINE (test code = 4813730785) 9 mmol/L [facility] CenterPO[facility] GLU[facility]SE (AUTOMATED)2020-06-27 01:33:21 Test Item Value Reference Range Interpretation Comments POCT GLU (test code = 2368281362) 222 mg/dL 70-110 H Lab Interpretation (test code = Abnormal 66984-8) [facility]BAL[facility] (NA, K, CL, CO2, GLUCOSE, BUN, CREATININE, CA)2020-06-26 21:04:18 Test Item Value Reference Range Interpretation Comments NA (test code = 152 mmol/L 135-145 H 9485451518) K (test code = 4.1 mmol/L 3.5-5.0 6366334261) CL (test code = 98 mmol/L 98-108 5373465405) CO2 TOTAL (test code = 46 mmol/L 23-31 H 9163433112) AGAP (test code = 2-16 5884855937) BUN (test code = 81 mg/dL 7-23 H 4990951864) GLUCOSE (test code = 240 mg/dL 70-110 H 0820591758) CREATININE (test code = 1.62 mg/dL 0.60-1.25 H 1602212479) CALCIUM (test code = 9.1 mg/dL 8.6-10.6 0255904930) eGFR (test code = mL/min/1.73m2 5872654536) eGFR Calculation mL/min/1.73m2 () (test code = 6455525184) MEG (test code = MEG) Association of Glomerular Filtration Rate (GFR) and Staging of Kidney Disease* + --+ --+ ------+| GFR (mL/min/1.73 m2) ?| With Kidney Damage ?| ?Without Kidney Damage+ --------+ --------+ +| ?>90 ?| ?Stage one ?| ? Normal ?+ ---+ ---+ -------+| ?60-89 ?| ?Stage two ?| ? Decreased GFR ? + --+ --+ ------+| ?30-59 ?| ?Stage three ?| ? Stage three ? + --+ --+ ------+| ?15-29 ?| ?Stage four ? | ? Stage four ?+ ---+ ---+ -------+| ?<15 (or dialysis) ? ?| ?Stage five ? | ? Stage five ?+ ---+ ---+ -------+ *Each stage assumes the associated GFR level has been in effect for at least three months. ?Stages 1 to 5, with or without kidney disease, indicate chronic kidney disease. Notes: Determination of stages one and two (with eGFR >59mL/min/1.73 m2) requires estimation of kidney damage for at least three months as defined by structural or functional abnormalities of the kidney, manifested by either:Pathological abnormalities or Markers of kidney damage (including abnormalities in the composition of the blood or urine or abnormalities in imaging tests). Lab Interpretation Abnormal (test code = 69969-0) [facility] 21:03:37 Test Item Value Reference Range Interpretation Comments MAGNESIUM (test code = 8581937410) 2.4 mg/dL 1.7-2.4 Lab Interpretation (test code = Normal 92832-6) [facility] (for use with Heparin Drip)2020-06-26 18:15:23 Test Item Value Reference Range Interpretation Comments APTT Patient (test code See_Comment H [Au tomated message] = 3173-2) The system [employer] generated this result transmitted ref erence range: 26 - 36 Seconds. The reference range was not used to int erpret this result as normal/abnormal . Lab Interpretation (test Abnormal code = 82960-3) [facility] GLUCOSE (AUTOMATED)2020-06-26 16:15:36 Test Item Value Reference Range Interpretation Comments POCT GLU (test code = 0287250508) 214 mg/dL 70-110 H Lab Interpretation (test code = Abnormal 03970-7) [facility] GLUCOSE (AUTOMATED)2020-06-26 13:05:40 Test Item Value Reference Range Interpretation Comments POCT GLU (test code = 5837457158) 186 mg/dL 70-110 H Lab Interpretation (test code = Abnormal 73035-6) [facility] (NA, K, CL, CO2, GLUCOSE, BUN, CREATININE, CA)2020-06-26 10:59:36 Test Item Value Reference Range Interpretation Comments NA (test code = 151 mmol/L 135-145 H 0400116932) K (test code = 3.6 mmol/L 3.5-5.0 8245166128) CL (test code = 96 mmol/L 98-108 L 2176357624) CO2 TOTAL (test code = 47 mmol/L 23-31 H 9665070155) AGAP (test code = 2-16 4157783727) BUN (test code = 77 mg/dL 7-23 H 1010958899) GLUCOSE (test code = 213 mg/dL 70-110 H 2244667722) CREATININE (test code = 1.49 mg/dL 0.60-1.25 H 1290729264) CALCIUM (test code = 9.4 mg/dL 8.6-10.6 9782050643) eGFR (test code = mL/min/1.73m2 7621448793) eGFR Calculation mL/min/1.73m2 () (test code = 0616990776) MEG (test code = MEG) Association of Glomerular Filtration Rate (GFR) and Staging of Kidney Disease* + --+ --+ ------+| GFR (mL/min/1.73 m2) ?| With Kidney Damage ?| ?Without Kidney Damage+ --------+ --------+ +| ?>90 ?| ?Stage one ?| ? Normal ?+ ---+ ---+ -------+| ?60-89 ?| ?Stage two ?| ? Decreased GFR ? + --+ --+ ------+| ?30-59 ?| ?Stage three ?| ? Stage three ? + --+ --+ ------+| ?15-29 ?| ?Stage four ? | ? Stage four ?+ ---+ ---+ -------+| ?<15 (or dialysis) ? ?| ?Stage five ? | ? Stage five ?+ ---+ ---+ -------+ *Each stage assumes the associated GFR level has been in effect for at least three months. ?Stages 1 to 5, with or without kidney disease, indicate chronic kidney disease. Notes: Determination of stages one and two (with eGFR >59mL/min/1.73 m2) requires estimation of kidney damage for at least three months as defined by structural or functional abnormalities of the kidney, manifested by either:Pathological abnormalities or Markers of kidney damage (including abnormalities in the composition of the blood or urine or abnormalities in imaging tests). Lab Interpretation Abnormal (test code = 71704-9) [facility] WITH [id number] 10:17:14 Test Item Value Reference Range Interpretation Comments WBC (test code = See_Comment [Automated 6690-2) message] The sy stem which generated this result transmitted reference range : 4.20 - 10.70 10*3/?L. The reference range was not used to interpret this result as normal/abnormal . RBC (test code = See_Comment L [Automated 789-8) message] The sy stem which generated this result transmitted reference range : 4.26 - 5.52 10*6/?L. The reference range was not used to interpret this result as normal/abnormal . HGB (test code = 9.1 g/dL 12.2-16.4 L 718-7) HCT (test code = 35.0 % 38.4-49.3 L 4544-3) MCV (test code = 92.3 fL 81.7-95.6 787-2) MCH (test code = 24.0 pg 26.1-32.7 L 785-6) MCHC (test code = 26.0 g/dL 31.2-35.0 L 786-4) RDW-SD (test code = 62.8 fL 38.5-51.6 H 08594-2) RDW-CV (test code = 18.7 % 12.1-15.4 H 788-0) PLT (test code = See_Comment [Automated 777-3) message] The sy stem which generated this result transmitted reference range : 150 - 328 10*3/ ?L. The reference r delano was not used to interpret this result as normal/abnormal . MPV (test code = 11.3 fL 9.8-13.0 82082-0) NRBC/100 WBC (test See_Comment [Automat ed code = 9139372941) message] The system which generated this result transmitted reference range : 0.0 - 10.0 /100 WBCs. The refer ence range was not u sed to interpret th is result as normal/abnormal . NRBC x10^3 (test code <0.01 See_Comment [Auto mated = 7797030667) message] The s ystem which generated this result transmitted reference range : 10*3/?L. The reference range was not used to interpret this result as normal/abnormal . GRAN MAT (NEUT) % 78.1 % (test code = 770-8) IMM GRAN % (test code 0.40 % = 7297473857) LYMPH % (test code = 12.4 % 736-9) MONO % (test code = 6.8 % 5905-5) EOS % (test code = 2.1 % 713-8) BASO % (test code = 0.2 % 706-2) GRAN MAT x10^3(ANC) 7.71 10*3/uL 1.99-6.95 H (test code = 5961373323) IMM GRAN x10^3 (test 0.04 10*3/uL 0.00-0.06 code = 4686759017) LYMPH x10^3 (test code 1.23 10*3/uL 1.09-3.23 = 731-0) MONO x10^3 (test code 0.67 10*3/uL 0.36-1.02 = 742-7) EOS x10^3 (test code = 0.21 10*3/uL 0.06-0.53 711-2) BASO x10^3 (test code <0.03 0.01-0.09 = 704-7) Lab Interpretation Abnormal (test code = 33419-3) [facility] 10:12:25 Test Item Value Reference Range Interpretation Comments MAGNESIUM (test code = 4944538911) 2.4 mg/dL 1.7-2.4 Lab Interpretation (test code = Normal 83006-1) [facility]2020-06-26 09:32:50 Test Item Value Reference Range Interpretation Comments POCT GLU (test code = 8133402754) 196 mg/dL 70-110 H Lab Interpretation (test code = Abnormal 79799-0) [facility] CenterLaoric Acid Whole [id number] 09:23:20 Test Item Value Reference Range Interpretation Comments LACTIC ACID (test code = 1.31 mmol/L 0.50-2.20 5548126446) Lab Interpretation (test code = Normal 69475-5) [facility] Center[facility] THRMPLAS [id number] 05:05:53 Test Item Value Reference Range Interpretation Comments APTT Patient (test code See_Comment H [Au tomated message] = 3173-2) The system [employer] generated this result transmitted ref erence range: 26 - 36 Seconds. The reference range was not used to int erpret this result as normal/abnormal . Lab Interpretation (test Abnormal code = 19178-3) [facility] GLUCOSE (AUTOMATED)2020-06-26 04:56:22 Test Item Value Reference Range Interpretation Comments POCT GLU (test code = 7062129641) 171 mg/dL 70-110 H Lab Interpretation (test code = Abnormal 66999-0) [facility] (NA, K, CL, CO2, GLUCOSE, BUN, CREATININE, CA)2020-06-26 00:49:17 Test Item Value Reference Range Interpretation Comments NA (test code = 152 mmol/L 135-145 H 7560186245) K (test code = 3.9 mmol/L 3.5-5.0 4833042747) CL (test code = 95 mmol/L 98-108 L 0698504935) CO2 TOTAL (test code = 47 mmol/L 23-31 H 0936027418) AGAP (test code = 2-16 8504896902) BUN (test code = 79 mg/dL 7-23 H 6679548187) GLUCOSE (test code = 205 mg/dL 70-110 H 8860774410) CREATININE (test code = 1.57 mg/dL 0.60-1.25 H 5264712510) CALCIUM (test code = 9.3 mg/dL 8.6-10.6 9317249496) eGFR (test code = mL/min/1.73m2 2132409204) eGFR Calculation mL/min/1.73m2 () (test code = 5252322602) MEG (test code = MEG) Association of Glomerular Filtration Rate (GFR) and Staging of Kidney Disease* + --+ --+ ------+| GFR (mL/min/1.73 m2) ?| With Kidney Damage ?| ?Without Kidney Damage+ --------+ --------+ +| ?>90 ?| ?Stage one ?| ? Normal ?+ ---+ ---+ -------+| ?60-89 ?| ?Stage two ?| ? Decreased GFR ? + --+ --+ ------+| ?30-59 ?| ?Stage three ?| ? Stage three ? + --+ --+ ------+| ?15-29 ?| ?Stage four ? | ? Stage four ?+ ---+ ---+ -------+| ?<15 (or dialysis) ? ?| ?Stage five ? | ? Stage five ?+ ---+ ---+ -------+ *Each stage assumes the associated GFR level has been in effect for at least three months. ?Stages 1 to 5, with or without kidney disease, indicate chronic kidney disease. Notes: Determination of stages one and two (with eGFR >59mL/min/1.73 m2) requires estimation of kidney damage for at least three months as defined by structural or functional abnormalities of the kidney, manifested by either:Pathological abnormalities or Markers of kidney damage (including abnormalities in the composition of the blood or urine or abnormalities in imaging tests). Lab Interpretation Abnormal (test code = 26904-4) [facility]2020-06-26 00:41:56 Test Item Value Reference Range Interpretation Comments POCT GLU (test code = 0382820360) 187 mg/dL 70-110 H Lab Interpretation (test code = Abnormal 99383-8) [facility]2021-[facility]-24 00:25:35 Test Item Value Reference Range Interpretation Comments MAGNESIUM (test code = 9267080652) 2.4 mg/dL 1.7-2.4 Lab Interpretation (test code = Normal 04100-6) [facility] CenterXR CHEST 1 [id number] 21:37:11 1. Persistent small to moderate left greater than right bilateral pleuraleffusions and underlying atelectasis. No convincing edema.2. Stable support apparatus. I, Tasneem Goetz MD., have reviewed this study and agree with theabove report.EXAM: XR CHEST 1 VW COMPARISON: Chest radiographs dating back to 06/19/2020 HISTORY: volume overload FINDINGS: The right central venous catheter tip projectsover the atriocavaljunction. The ET tube tip projects 3.4 cm above the jolly. A gastric tubeis faintly visualized projects over the thorax into the stomach with itstip out of view. Lungs: Persistent medial basilar airspace opacities, left greater thanright and blunted costophrenic and cardiophrenic an gles. Heart/Mediastinum: The cardiomediastinal silhouette is normal in sizeaccounting for technique.Atherosclerotic calcifications of the aorta.Prominence of the central pulmonary arteries. Bones: No osseous lesions are detected. The soft tissues appear normal [facility], Radiant Results Inft User - 06/25/2020 4:38 PM CDTEXAM: XR CHEST 1 VWCOMPARISON: Chest radiographs dating back to 06/19/2020HISTORY: volume overload FINDINGS:The right central venous catheter tip projects over the atriocavaljunction. TheET tube tip projects 3.4 cm above the jolly. A gastric tubeis faintly visualized projects over the t horax into the stomach with itstip out of view.Lungs: Persistent medial basilar airspace opacities, left greater thanright and blunted costophrenic and cardiophrenic angles. Heart/Mediastinum: The cardiomediastinal silhouette is normal in sizeaccounting for technique. Atherosclerotic calcifications ofthe aorta.Prominence of the central pulmonary arteries.Bones: No osseous lesions are detected. The soft tissues appear normalIMPRESSION1. Persistent small to moderate left greater than right bilateral pleuraleffusions and underlying atelectasis. No convincing edema.2. Stable support apparatus.I, Kimberly Goetz MD., have reviewed this study and agree with theabove report.[facility]2020-06-25 20:53:22 Test Item Value Reference Range Interpretation Comments POCT GLU (test code = 8860296220) 205 mg/dL 70-110 H Lab Interpretation (test code = Abnormal 28614-5) [facility] CenterACT[facility] THRMPLAS [id number] 16:49:46 Test Item Value Reference Range Interpretation Comments APTT Patient (test code See_Comment H [Au tomated message] = 9643-2) The system [employer] generated this result transmitted ref erence range: 26 - 36 Seconds. The reference range was not used to int erpret this result as normal/abnormal . Lab Interpretation (test Abnormal code = 96761-3) [facility] GLUCOSE (AUTOMATED)2020-06-25 16:32:47 Test Item Value Reference Range Interpretation Comments POCT GLU (test code = 3635831038) 192 mg/dL 70-110 H Lab Interpretation (test code = Abnormal 00514-6) [facility] CenterLaoric Acid Whole [id number] 16:26:43 Test Item Value Reference Range Interpretation Comments LACTIC ACID (test code = 1.37 mmol/L 0.50-2.20 6990180165) Lab Interpretation (test code = Normal 87680-1) [facility] CenterSPUTUM [id number] 13:53:38 Test Item Value Reference Range Interpretation Comments SPUTUM CULTURE 1+ Respiratory leelee: (test code = Commensal upper respiratory 622-1) microorganisms only. Gram stain (test Few Polymorphonuclear code = 664-3) leukocytes MEG (test code = Bacterial pathogens MEG) associated with lower respiratory infections were not identified, which include Pseudomonas aeruginosa and Staphylococcus aureus (MRSA or MSSA). [facility] GLUCOSE (AUTOMATED)2020-06-25 12:18:21 Test Item Value Reference Range Interpretation Comments POCT GLU (test code = 4396176482) 153 mg/dL 70-110 H Lab Interpretation (test code = Abnormal 87653-7) [facility] GLUCOSE (AUTOMATED)2020-06-25 09:32:23 Test Item Value Reference Range Interpretation Comments POCT GLU (test code = 7475690529) 144 mg/dL 70-110 H Lab Interpretation (test code = Abnormal 11637-9) [facility] WITH [id number] 09:07:08 Test Item Value Reference Range Interpretation Comments WBC (test code = See_Comment [Automated 3490-2) message] The sy stem which generated this result transmitted reference range : 4.20 - 10.70 10*3/?L. The reference range was not used to interpret this result as normal/abnormal . RBC (test code = See_Comment L [Automated 789-8) message] The sy stem which generated this result transmitted reference range : 4.26 - 5.52 10*6/?L. The reference range was not used to interpret this result as normal/abnormal . HGB (test code = 9.8 g/dL 12.2-16.4 L 718-7) HCT (test code = 37.2 % 38.4-49.3 L 4544-3) MCV (test code = 91.0 fL 81.7-95.6 787-2) MCH (test code = 24.0 pg 26.1-32.7 L 785-6) MCHC (test code = 26.3 g/dL 31.2-35.0 L 786-4) RDW-SD (test code = 60.2 fL 38.5-51.6 H 71159-2) RDW-CV (test code = 18.3 % 12.1-15.4 H 788-0) PLT (test code = See_Comment [Automated 777-3) message] The sy stem which generated this result transmitted reference range : 150 - 328 10*3/ ?L. The reference r delano was not used to interpret this result as normal/abnormal . MPV (test code = 11.3 fL 9.8-13.0 30533-1) NRBC/100 WBC (test See_Comment [Automat ed code = 9517402090) message] The system which generated this result transmitted reference range : 0.0 - 10.0 /100 WBCs. The refer ence range was not u sed to interpret th is result as normal/abnormal . NRBC x10^3 (test code <0.01 See_Comment [Auto mated = 6466923696) message] The s ystem which generated this result transmitted reference range : 10*3/?L. The reference range was not used to interpret this result as normal/abnormal . GRAN MAT (NEUT) % 80.1 % (test code = 770-8) IMM GRAN % (test code 0.30 % = 8127464158) LYMPH % (test code = 11.7 % 736-9) MONO % (test code = 7.7 % 5905-5) EOS % (test code = 0.1 % 713-8) BASO % (test code = 0.1 % 706-2) GRAN MAT x10^3(ANC) 7.83 10*3/uL 1.99-6.95 H (test code = 6955205010) IMM GRAN x10^3 (test 0.03 10*3/uL 0.00-0.06 code = 3139633907) LYMPH x10^3 (test code 1.14 10*3/uL 1.09-3.23 = 731-0) MONO x10^3 (test code 0.75 10*3/uL 0.36-1.02 = 742-7) EOS x10^3 (test code = <0.03 0.06-0.53 L 711-2) BASO x10^3 (test code <0.03 0.01-0.09 = 704-7) Lab Interpretation Abnormal (test code = 79743-3) [facility] METABOLIC PANEL (NA, K, CL, CO2, GLUCOSE, BUN, CREATININE, CA)2020-06-25 09:03:35 Test Item Value Reference Range Interpretation Comments NA (test code = 151 mmol/L 135-145 H 8352721887) K (test code = 3.8 mmol/L 3.5-5.0 4879733192) CL (test code = 93 mmol/L 98-108 L 3758059567) CO2 TOTAL (test code = 50 mmol/L 23-31 H 7577059948) AGAP (test code = 2-16 7482488446) BUN (test code = 71 mg/dL 7-23 H 0750194638) GLUCOSE (test code = 166 mg/dL 70-110 H 5815968470) CREATININE (test code = 1.45 mg/dL 0.60-1.25 H 7605937981) CALCIUM (test code = 9.6 mg/dL 8.6-10.6 5448244949) eGFR (test code = mL/min/1.73m2 0128881070) eGFR Calculation mL/min/1.73m2 () (test code = 3553277511) MEG (test code = MEG) Association of Glomerular Filtration Rate (GFR) and Staging of Kidney Disease* + --+ --+ ------+| GFR (mL/min/1.73 m2) ?| With Kidney Damage ?| ?Without Kidney Damage+ --------+ --------+ +| ?>90 ?| ?Stage one ?| ? Normal ?+ ---+ ---+ -------+| ?60-89 ?| ?Stage two ?| ? Decreased GFR ? + --+ --+ ------+| ?30-59 ?| ?Stage three ?| ? Stage three ? + --+ --+ ------+| ?15-29 ?| ?Stage four ? | ? Stage four ?+ ---+ ---+ -------+| ?<15 (or dialysis) ? ?| ?Stage five ? | ? Stage five ?+ ---+ ---+ -------+ *Each stage assumes the associated GFR level has been in effect for at least three months. ?Stages 1 to 5, with or without kidney disease, indicate chronic kidney disease. Notes: Determination of stages one and two (with eGFR >59mL/min/1.73 m2) requires estimation of kidney damage for at least three months as defined by structural or functional abnormalities of the kidney, manifested by either:Pathological abnormalities or Markers of kidney damage (including abnormalities in the composition of the blood or urine or abnormalities in imaging tests). Lab Interpretation Abnormal (test code = 18888-0) [facility]2021-[facility]-23 08:37:41 Test Item Value Reference Range Interpretation Comments MAGNESIUM (test code = 7993320352) 2.2 mg/dL 1.7-2.4 Lab Interpretation (test code = Normal 54408-9) [facility])2020-06-25 05:18:17 Test Item Value Reference Range Interpretation Comments POCT GLU (test code = 1860080528) 149 mg/dL 70-110 H Lab Interpretation (test code = Abnormal 53317-0) [facility] CenterACT[facility] THRMPLAS [id number] 05:09:45 Test Item Value Reference Range Interpretation Comments APTT Patient (test code See_Comment H [Au tomated message] = 3173-2) The system [employer] generated this result transmitted ref erence range: 26 - 36 Seconds. The reference range was not used to int erpret this result as normal/abnormal . Lab Interpretation (test Abnormal code = 66705-9) [facility]2021-[facility]-23 00:57:11 Test Item Value Reference Range Interpretation Comments MAGNESIUM (test code = 9724743752) 2.2 mg/dL 1.7-2.4 Lab Interpretation (test code = Normal 89819-8) [facility] CenterP[facility] GLUCOSE (AUTOMATED)2020-06-25 00:44:04 Test Item Value Reference Range Interpretation Comments POCT GLU (test code = 2848344783) 212 mg/dL 70-110 H Lab Interpretation (test code = Abnormal 13470-6) [facility] CenterBL[facility] C[facility] [id number] 00:02:04 Test Item Value Reference Range Interpretation Comments Blood Culture-Aerobic No organisms No growth Previo us (test code = 29211-3) isolated prelim inary verified result was Culture In Progress on 06/19/2020 at 22 02 CDTPrevious preliminary verified result was No growth a t 24 hours on 06/20/2020 at 19 01 CDTPrevious preliminary verified result was No growth a t 48 hours on 06/21/2020 at 19 01 CDTPrevious preliminary verified result was No growth a t 72 hours on 06/22/2020 at 19 01 CDT Blood No organisms No growth Previous Culture-Anaerobic isolated preliminar y (test code = 02224-1) verifi ed result was Culture In Progress on 06/19/2020 at 22 02 CDTPrevious preliminary verified result was No growth a t 24 hours on 06/20/2020 at 19 01 CDTPrevious preliminary verified result was No growth a t 48 hours on 06/21/2020 at 19 01 CDTPrevious preliminary verified result was No growth a t 72 hours on 06/22/2020 at 19 01 CDT Lab Interpretation Normal (test code = 38839-6) [facility] CULTURE [id number] 00:02:04 Test Item Value Reference Range Interpretation Comments Blood Culture-Aerobic No organisms No growth Previo us (test code = 30095-2) isolated prelim inary verified result was Culture In Progress on 06/19/2020 at 22 02 CDTPrevious preliminary verified result was No growth a t 24 hours on 06/20/2020 at 19 01 CDTPrevious preliminary verified result was No growth a t 48 hours on 06/21/2020 at 19 01 CDTPrevious preliminary verified result was No growth a t 72 hours on 06/22/2020 at 19 01 CDT Blood No organisms No growth Previous Culture-Anaerobic isolated preliminar y (test code = 27700-3) verifi ed result was Culture In Progress on 06/19/2020 at 22 02 CDTPrevious preliminary verified result was No growth a t 24 hours on 06/20/2020 at 19 CDTPrevious preliminary verified result was No growth a t 48 hours on 06/21/2020 at 19 CDTPrevious preliminary verified result was No growth a t 72 hours on 06/22/2020 at 19 01 CDT Lab Interpretation Normal (test code = 48147-6) [facility] METABOLIC PANEL (NA, K, CL, CO2, GLUCOSE, BUN, CREATININE, CA)2020-06-24 21:05:30 Test Item Value Reference Range Interpretation Comments NA (test code = 148 mmol/L 135-145 H 4055145335) K (test code = 3.7 mmol/L 3.5-5.0 3256936506) CL (test code = 89 mmol/L 98-108 L 3223707433) CO2 TOTAL (test code = 51 mmol/L 23-31 H 0744355311) AGAP (test code = 2-16 2647414544) BUN (test code = 65 mg/dL 7-23 H 4372400303) GLUCOSE (test code = 255 mg/dL 70-110 H 5924119229) CREATININE (test code = 1.54 mg/dL 0.60-1.25 H 6671821056) CALCIUM (test code = 9.4 mg/dL 8.6-10.6 2987571825) eGFR (test code = mL/min/1.73m2 8198700433) eGFR Calculation mL/min/1.73m2 () (test code = 9282620611) MEG (test code = MEG) Association of Glomerular Filtration Rate (GFR) and Staging of Kidney Disease* + --+ --+ ------+| GFR (mL/min/1.73 m2) ?| With Kidney Damage ?| ?Without Kidney Damage+ --------+ --------+ +| ?>90 ?| ?Stage one ?| ? Normal ?+ ---+ ---+ -------+| ?60-89 ?| ?Stage two ?| ? Decreased GFR ? + --+ --+ ------+| ?30-59 ?| ?Stage three ?| ? Stage three ? + --+ --+ ------+| ?15-29 ?| ?Stage four ? | ? Stage four ?+ ---+ ---+ -------+| ?<15 (or dialysis) ? ?| ?Stage five ? | ? Stage five ?+ ---+ ---+ -------+ *Each stage assumes the associated GFR level has been in effect for at least three months. ?Stages 1 to 5, with or without kidney disease, indicate chronic kidney disease. Notes: Determination of stages one and two (with eGFR >59mL/min/1.73 m2) requires estimation of kidney damage for at least three months as defined by structural or functional abnormalities of the kidney, manifested by either:Pathological abnormalities or Markers of kidney damage (including abnormalities in the composition of the blood or urine or abnormalities in imaging tests). Lab Interpretation Abnormal (test code = 33797-2) [facility] [id number] 16:56:37 Test Item Value Reference Range Interpretation Comments URINE CULTURE (test No aerobic growth (< code = 630-4) 1000 CFU/mL) [facility] GLUCOSE (AUTOMATED)2020-06-24 16:31:28 Test Item Value Reference Range Interpretation Comments POCT GLU (test code = 3484647331) 174 mg/dL 70-110 H Lab Interpretation (test code = Abnormal 24923-8) [facility] Center[facility]IV[facility] PARTIAL THRMPLAS [id number] 16:15:08 Test Item Value Reference Range Interpretation Comments APTT Patient (test code See_Comment H [Au tomated message] = 3173-2) The system [employer] generated this result transmitted ref erence range: 26 - 36 Seconds. The reference range was not used to int erpret this result as normal/abnormal . Lab Interpretation (test Abnormal code = 94698-3) [facility] GLUCOSE (AUTOMATED)2020-06-24 12:55:03 Test Item Value Reference Range Interpretation Comments POCT GLU (test code = 6081043155) 80 mg/dL 70-110 Lab Interpretation (test code = Normal 48270-3) [facility] WITH [id number] 07:04:18 Test Item Value Reference Range Interpretation Comments WBC (test code = See_Comment [Automated 6690-2) message] The sy stem which generated this result transmitted reference range : 4.20 - 10.70 10*3/?L. The reference range was not used to interpret this result as normal/abnormal . RBC (test code = See_Comment L [Automated 789-8) message] The sy stem which generated this result transmitted reference range : 4.26 - 5.52 10*6/?L. The reference range was not used to interpret this result as normal/abnormal . HGB (test code = 9.6 g/dL 12.2-16.4 L 718-7) HCT (test code = 35.2 % 38.4-49.3 L 4544-3) MCV (test code = 88.2 fL 81.7-95.6 787-2) MCH (test code = 24.1 pg 26.1-32.7 L 785-6) MCHC (test code = 27.3 g/dL 31.2-35.0 L 786-4) RDW-SD (test code = 58.2 fL 38.5-51.6 H 53125-1) RDW-CV (test code = 18.1 % 12.1-15.4 H 788-0) PLT (test code = See_Comment [Automated 777-3) message] The sy stem which generated this result transmitted reference range : 150 - 328 10*3/ ?L. The reference r delano was not used to interpret this result as normal/abnormal . MPV (test code = 10.9 fL 9.8-13.0 32365-6) NRBC/100 WBC (test See_Comment [Automat ed code = 0206816185) message] The system which generated this result transmitted reference range : 0.0 - 10.0 /100 WBCs. The refer ence range was not u sed to interpret th is result as normal/abnormal . NRBC x10^3 (test code <0.01 See_Comment [Auto mated = 5786716627) message] The s ystem which generated this result transmitted reference range : 10*3/?L. The reference range was not used to interpret this result as normal/abnormal . GRAN MAT (NEUT) % 76.5 % (test code = 770-8) IMM GRAN % (test code 0.20 % = 1764844668) LYMPH % (test code = 13.1 % 736-9) MONO % (test code = 10.1 % 5905-5) EOS % (test code = 0.0 % 713-8) BASO % (test code = 0.1 % 706-2) GRAN MAT x10^3(ANC) 6.84 10*3/uL 1.99-6.95 (test code = 4648387969) IMM GRAN x10^3 (test <0.03 0.00-0.06 code = 5781455327) LYMPH x10^3 (test code 1.17 10*3/uL 1.09-3.23 = 731-0) MONO x10^3 (test code 0.90 10*3/uL 0.36-1.02 = 742-7) EOS x10^3 (test code = <0.03 0.06-0.53 L 711-2) BASO x10^3 (test code <0.03 0.01-0.09 = 704-7) Lab Interpretation Abnormal (test code = 76177-4) [facility] METABOLIC PANEL (NA, K, CL, CO2, GLUCOSE, BUN, CREATININE, CA)2020-06-24 06:52:48 Test Item Value Reference Range Interpretation Comments NA (test code = 149 mmol/L 135-145 H 5611535723) K (test code = 3.4 mmol/L 3.5-5.0 L 9049330533) CL (test code = 91 mmol/L 98-108 L 9546988162) CO2 TOTAL (test code = 51 mmol/L 23-31 H 8897480384) AGAP (test code = 2-16 1083628081) BUN (test code = 61 mg/dL 7-23 H 0131692592) GLUCOSE (test code = 111 mg/dL 70-110 H 7516462597) CREATININE (test code = 1.56 mg/dL 0.60-1.25 H 7727961683) CALCIUM (test code = 9.0 mg/dL 8.6-10.6 7361725060) eGFR (test code = mL/min/1.73m2 4775997111) eGFR Calculation mL/min/1.73m2 () (test code = 8810259284) MEG (test code = MEG) Association of Glomerular Filtration Rate (GFR) and Staging of Kidney Disease* + --+ --+ ------+| GFR (mL/min/1.73 m2) ?| With Kidney Damage ?| ?Without Kidney Damage+ --------+ --------+ +| ?>90 ?| ?Stage one ?| ? Normal ?+ ---+ ---+ -------+| ?60-89 ?| ?Stage two ?| ? Decreased GFR ? + --+ --+ ------+| ?30-59 ?| ?Stage three ?| ? Stage three ? + --+ --+ ------+| ?15-29 ?| ?Stage four ? | ? Stage four ?+ ---+ ---+ -------+| ?<15 (or dialysis) ? ?| ?Stage five ? | ? Stage five ?+ ---+ ---+ -------+ *Each stage assumes the associated GFR level has been in effect for at least three months. ?Stages 1 to 5, with or without kidney disease, indicate chronic kidney disease. Notes: Determination of stages one and two (with eGFR >59mL/min/1.73 m2) requires estimation of kidney damage for at least three months as defined by structural or functional abnormalities of the kidney, manifested by either:Pathological abnormalities or Markers of kidney damage (including abnormalities in the composition of the blood or urine or abnormalities in imaging tests). Lab Interpretation Abnormal (test code = 60651-3) [facility]21-[facility] 06:37:26 Test Item Value Reference Range Interpretation Comments MAGNESIUM (test code = 5071357653) 1.9 mg/dL 1.7-2.4 Lab Interpretation (test code = Normal 39430-1) [facility] + LACTIC [id number] 06:26:59 Test Item Value Reference Range Interpretation Comments PH (test code = 2) 7.35-7.45 H PCO2 (test code = See_Comment H [Automate d 9238112590) message] The sy stem which generated this result transmitted reference range : 35 - 45 mmHg. The reference range was not used to interpret this result as normal/abnormal . PO2 (test code = See_Comment L [Automated 8993615394) message] The sy stem which generated this result transmitted reference range : 80 - 100 mmHg. The reference range was not used to interpret this result as normal/abnormal . HCO3 (test code = See_Comment H [Automate d 3383175175) message] The sy stem which generated this result transmitted reference range : 22 - 26 mEq/L. The reference range was not used to interpret this result as normal/abnormal . BE (test code = See_Comment H [Automated 5366500847) message] The sy stem which generated this result transmitted reference range : -3.0 - 3.0 mEq/ L. The reference r delano was not used to interpret this result as normal/abnormal . THB (test code = 10.9 g/dL 13.5-18.0 L 5909768879) %O2HB (test code = 91.7 % 94.0-99.0 L 7698878758) %COHB ART (test code = 0.5 % 0.0-1.5 3958756871) %METHB ART (test code = 0.1 % 0.4-1.5 L 7858333634) VOL%O2 ART (test code = 14.1 % 15.0-23.0 L 8594144757) NA (test code = 144 mmol/L 135-145 5587064389) K+ (test code = 3.3 mmol/L 3.5-5.0 L 8427713271) AC CA IONZ (test code = 4.40 mg/dL 4.50-5.30 L 7840596573) GLUCOSE (test code = 114 mg/dL 70-110 H 4824551226) LACTIC ACID (test code 1.22 mmol/L 0.50-2.20 = 5101235817) Lab Interpretation Abnormal (test code = 19075-7) [facility] (for use with Heparin Drip)2020-06-24 05:22:19 Test Item Value Reference Range Interpretation Comments APTT Patient (test code See_Comment H [Au tomated message] = 3173-2) The system [employer] generated this result transmitted ref erence range: 26 - 36 Seconds. The reference range was not used to int erpret this result as normal/abnormal . Lab Interpretation (test Abnormal code = 45522-8) [facility] GLUCOSE (AUTOMATED)2020-06-24 05:07:21 Test Item Value Reference Range Interpretation Comments POCT GLU (test code = 9811512744) 109 mg/dL 70-110 Lab Interpretation (test code = Normal 59829-5) [facility] GLUCOSE (AUTOMATED)2020-06-24 00:45:15 Test Item Value Reference Range Interpretation Comments POCT GLU (test code = 5305165203) 169 mg/dL 70-110 H Lab Interpretation (test code = Abnormal 04250-7) [facility]2021-[facility]-21 21:21:43 Test Item Value Reference Range Interpretation Comments APPEARANCE (test code = Hazy Clear A 0983589371) COLOR (test code = Straw Yellow A 6210249714) PH (test code = 4.8-8.0 3751526984) SP GRAVITY (test code = 1.003-1.030 6967064347) GLU U QUAL (test code = Normal Normal 3044032946) BLOOD (test code = 2+ Negative A 7494971785) KETONES (test code = Negative Negative 5217555604) PROTEIN (test code = Negative Negative 2887-8) UROBILIN (test code = Normal Normal 4503299337) BILIRUBIN (test code = Negative Negative 9385669997) NITRITE (test code = Negative Negative 5091587507) LEUK BARTOLO (test code = Negative Negative 5327198520) RBC/HPF (test code = See_Comment H [Autom ated message] 7894443303) The system [employer] generated this result transmitted ref erence range: 0 - 3 HP F. The reference range was not used to int erpret this result as normal/abnormal . WBC/HPF (test code = See_Comment [Autom ated message] 1375522568) The system [employer] generated this result transmitted ref erence range: 0 - 5 HP F. The reference range was not used to int erpret this result as normal/abnormal . BACTERIA (test code = Negative Negative 1743158402) AMORPHOUS (test code = Rare Rare HPF 5306970153) Lab Interpretation (test Abnormal code = 32620-8) [facility] METABOLIC PANEL (NA, K, CL, CO2, GLUCOSE, BUN, CREATININE, CA)2020-06-23 21:14:42 Test Item Value Reference Range Interpretation Comments NA (test code = 148 mmol/L 135-145 H 4409509955) K (test code = 3.7 mmol/L 3.5-5.0 1053818204) CL (test code = 89 mmol/L 98-108 L 4615329362) CO2 TOTAL (test code = 51 mmol/L 23-31 H 3546770097) AGAP (test code = 2-16 8268349298) BUN (test code = 52 mg/dL 7-23 H 1198936687) GLUCOSE (test code = 216 mg/dL 70-110 H 0501546816) CREATININE (test code = 1.36 mg/dL 0.60-1.25 H 8105981309) CALCIUM (test code = 9.4 mg/dL 8.6-10.6 6547274000) eGFR (test code = mL/min/1.73m2 5283141283) eGFR Calculation mL/min/1.73m2 () (test code = 3000203708) MEG (test code = MEG) Association of Glomerular Filtration Rate (GFR) and Staging of Kidney Disease* + --+ --+ ------+| GFR (mL/min/1.73 m2) ?| With Kidney Damage ?| ?Without Kidney Damage+ --------+ --------+ +| ?>90 ?| ?Stage one ?| ? Normal ?+ ---+ ---+ -------+| ?60-89 ?| ?Stage two ?| ? Decreased GFR ? + --+ --+ ------+| ?30-59 ?| ?Stage three ?| ? Stage three ? + --+ --+ ------+| ?15-29 ?| ?Stage four ? | ? Stage four ?+ ---+ ---+ -------+| ?<15 (or dialysis) ? ?| ?Stage five ? | ? Stage five ?+ ---+ ---+ -------+ *Each stage assumes the associated GFR level has been in effect for at least three months. ?Stages 1 to 5, with or without kidney disease, indicate chronic kidney disease. Notes: Determination of stages one and two (with eGFR >59mL/min/1.73 m2) requires estimation of kidney damage for at least three months as defined by structural or functional abnormalities of the kidney, manifested by either:Pathological abnormalities or Markers of kidney damage (including abnormalities in the composition of the blood or urine or abnormalities in imaging tests). Lab Interpretation Abnormal (test code = 26007-8) [facility] GLUCOSE (AUTOMATED)2020-06-23 20:59:18 Test Item Value Reference Range Interpretation Comments POCT GLU (test code = 5405245822) 201 mg/dL 70-110 H Lab Interpretation (test code = Abnormal 72638-8) [facility]ST 1 [id number] 18:46:12 FINDINGS/IMPRESSION: An endotracheal tube ends 5.9 cm above the jolly. An enteric tube extendsbelowthe level diaphragm beyond the dbfrk-jz-upip. A right- sided centralvenous catheter is unchanged in position. Probable mild central pulmonary vascular congestion with mild interstitialopacities which may be related to mild edema versus atypical viralinfectious process. Probable small bilateral pleural effusions. Nopneumothorax. The cardiomediastinal silhouette is not enlarged. EXAM: XR CHEST 1 VW HISTORY: ?64 yearsyear-old Male SOB COMPARISON: Chest x-ray 06/20/2020 [facility], Radiant Results Inft User - 06/23/2020 1:47 PM CDTEXAM: XR CHEST 1 VWHISTORY: 64 yearsyear-old Male SOB COMPARISON: Chest x-ray 06/20/2020IMPRESSIONFINDINGS/IMPRESSION:An endotracheal tube ends 5.9 cm above the jolly. An enteric tube extendsbelow the level diaphragm beyond the sptoc-hw-qrud. A right-sided centralvenous catheter isunchanged in position.Probable mild central pulmonary vascular congestion with mild interstitialopacities which may be related to mild edema versus atypical viralinfectious process. Probable small bilateral pleural effusions. Nopneumothorax. The cardiomediastinal silhouette is not enlarged.[facility] GLUCOSE (AUTOMATED)2020-06-23 16:55:27 Test Item Value Reference Range Interpretation Comments POCT GLU (test code = 2980177522) 196 mg/dL 70-110 H Lab Interpretation (test code = Abnormal 27355-3) [facility]for use with Heparin Drip)2020-06-23 16:41:01 Test Item Value Reference Range Interpretation Comments APTT Patient (test code See_Comment H [Au tomated message] = 3173-2) The system whic h generated this result transmitted ref erence range: 26 - 36 Seconds. The reference range was not used to int erpret this result as normal/abnormal . Lab Interpretation (test Abnormal code = 90455-2) [facility])2020-06-23 13:11:07 Test Item Value Reference Range Interpretation Comments POCT GLU (test code = 5006728483) 131 mg/dL 70-110 H Lab Interpretation (test code = Abnormal 90930-3) [facility] 20 + LACTIC [id number] 10:36:19 Test Item Value Reference Range Interpretation Comments PH (test code = 2) 7.35-7.45 H PCO2 (test code = See_Comment H [Automate d 5255256525) message] The sy stem which generated this result transmitted reference range : 35 - 45 mmHg. The reference range was not used to interpret this result as normal/abnormal . PO2 (test code = See_Comment [Automated 8338083529) message] The sy stem which generated this result transmitted reference range : 80 - 100 mmHg. The reference range was not used to interpret this result as normal/abnormal . HCO3 (test code = See_Comment H [Automate d 5939233454) message] The sy stem which generated this result transmitted reference range : 22 - 26 mEq/L. The reference range was not used to interpret this result as normal/abnormal . BE (test code = See_Comment H [Automated 3290712069) message] The sy stem which generated this result transmitted reference range : -3.0 - 3.0 mEq/ L. The reference r delano was not used to interpret this result as normal/abnormal . THB (test code = 11.6 g/dL 13.5-18.0 L 1459346184) %O2HB (test code = 95.2 % 94.0-99.0 9309879507) %COHB ART (test code = 0.4 % 0.0-1.5 1307329554) %METHB ART (test code = 0.3 % 0.4-1.5 L 1272834952) VOL%O2 ART (test code = 15.6 % 15.0-23.0 0120477008) NA (test code = 147 mmol/L 135-145 H 5673045057) K+ (test code = 3.4 mmol/L 3.5-5.0 L 6927167065) AC CA IONZ (test code = 4.60 mg/dL 4.50-5.30 3740586155) GLUCOSE (test code = 136 mg/dL 70-110 H 6226702553) LACTIC ACID (test code 1.16 mmol/L 0.50-2.20 = 5929581086) Lab Interpretation Abnormal (test code = 72987-4) [facility] WITH [id number] 09:46:30 Test Item Value Reference Range Interpretation Comments WBC (test code = See_Comment [Automated 6821-2) message] The sy stem which generated this result transmitted reference range : 4.20 - 10.70 10*3/?L. The reference range was not used to interpret this result as normal/abnormal . RBC (test code = See_Comment [Automated 369-8) message] The sy stem which generated this result transmitted reference range : 4.26 - 5.52 10*6/?L. The reference range was not used to interpret this result as normal/abnormal . HGB (test code = 10.3 g/dL 12.2-16.4 L 718-7) HCT (test code = 37.0 % 38.4-49.3 L 4544-3) MCV (test code = 86.7 fL 81.7-95.6 787-2) MCH (test code = 24.1 pg 26.1-32.7 L 785-6) MCHC (test code = 27.8 g/dL 31.2-35.0 L 786-4) RDW-SD (test code = 56.7 fL 38.5-51.6 H 91967-4) RDW-CV (test code = 18.0 % 12.1-15.4 H 788-0) PLT (test code = See_Comment [Automated 947-3) message] The sy stem which generated this result transmitted reference range : 150 - 328 10*3/ ?L. The reference r delano was not used to interpret this result as normal/abnormal . MPV (test code = 11.2 fL 9.8-13.0 50515-6) NRBC/100 WBC (test See_Comment [Automat ed code = 6286266669) message] The system which generated this result transmitted reference range : 0.0 - 10.0 /100 WBCs. The refer ence range was not u sed to interpret th is result as normal/abnormal . NRBC x10^3 (test code <0.01 See_Comment [Auto mated = 3599601866) message] The s ystem which generated this result transmitted reference range : 10*3/?L. The reference range was not used to interpret this result as normal/abnormal . GRAN MAT (NEUT) % 78.6 % (test code = 770-8) IMM GRAN % (test code 0.10 % = 6321652100) LYMPH % (test code = 10.9 % 736-9) MONO % (test code = 10.4 % 5905-5) EOS % (test code = 0.0 % 713-8) BASO % (test code = 0.0 % 706-2) GRAN MAT x10^3(ANC) 6.31 10*3/uL 1.99-6.95 (test code = 2344727676) IMM GRAN x10^3 (test <0.03 0.00-0.06 code = 6879720749) LYMPH x10^3 (test code 0.88 10*3/uL 1.09-3.23 L = 731-0) MONO x10^3 (test code 0.84 10*3/uL 0.36-1.02 = 742-7) EOS x10^3 (test code = <0.03 0.06-0.53 L 711-2) BASO x10^3 (test code <0.03 0.01-0.09 = 704-7) Lab Interpretation Abnormal (test code = 91602-4) [facility] METABOLIC PANEL (NA, K, CL, CO2, GLUCOSE, BUN, CREATININE, CA)2020-06-23 09:42:46 Test Item Value Reference Range Interpretation Comments NA (test code = 147 mmol/L 135-145 H 1506341782) K (test code = 3.5 mmol/L 3.5-5.0 9263321794) CL (test code = 95 mmol/L 98-108 L 2267051190) CO2 TOTAL (test code = 43 mmol/L 23-31 H 2895505827) AGAP (test code = 2-16 5361593514) BUN (test code = 51 mg/dL 7-23 H 7095342295) GLUCOSE (test code = 132 mg/dL 70-110 H 4645141445) CREATININE (test code = 1.13 mg/dL 0.60-1.25 4257379723) CALCIUM (test code = 9.2 mg/dL 8.6-10.6 3682052912) eGFR (test code = mL/min/1.73m2 1713034338) eGFR Calculation mL/min/1.73m2 () (test code = 6401055490) MEG (test code = MEG) Association of Glomerular Filtration Rate (GFR) and Staging of Kidney Disease* + --+ --+ ------+| GFR (mL/min/1.73 m2) ?| With Kidney Damage ?| ?Without Kidney Damage+ --------+ --------+ +| ?>90 ?| ?Stage one ?| ? Normal ?+ ---+ ---+ -------+| ?60-89 ?| ?Stage two ?| ? Decreased GFR ? + --+ --+ ------+| ?30-59 ?| ?Stage three ?| ? Stage three ? + --+ --+ ------+| ?15-29 ?| ?Stage four ? | ? Stage four ?+ ---+ ---+ -------+| ?<15 (or dialysis) ? ?| ?Stage five ? | ? Stage five ?+ ---+ ---+ -------+ *Each stage assumes the associated GFR level has been in effect for at least three months. ?Stages 1 to 5, with or without kidney disease, indicate chronic kidney disease. Notes: Determination of stages one and two (with eGFR >59mL/min/1.73 m2) requires estimation of kidney damage for at least three months as defined by structural or functional abnormalities of the kidney, manifested by either:Pathological abnormalities or Markers of kidney damage (including abnormalities in the composition of the blood or urine or abnormalities in imaging tests). Lab Interpretation Abnormal (test code = 27201-4) [facility]2021-03-21 09:19:26 Test Item Value Reference Range Interpretation Comments MAGNESIUM (test code = 7474356783) 2.0 mg/dL 1.7-2.4 Lab Interpretation (test code = Normal 44306-0) [facility] GLUCOSE (AUTOMATED)2020-06-23 08:39:46 Test Item Value Reference Range Interpretation Comments POCT GLU (test code = 7075044728) 121 mg/dL 70-110 H Lab Interpretation (test code = Abnormal 31564-3) [facility] use with Heparin Drip)2020-06-23 04:37:58 Test Item Value Reference Range Interpretation Comments APTT Patient (test code See_Comment H [Au tomated message] = 3173-2) The system [employer] generated this result transmitted ref erence range: 26 - 36 Seconds. The reference range was not used to int erpret this result as normal/abnormal . Lab Interpretation (test Abnormal code = 35040-8) [facility] GLUCOSE (AUTOMATED)2020-06-23 04:27:01 Test Item Value Reference Range Interpretation Comments POCT GLU (test code = 2509438830) 160 mg/dL 70-110 H Lab Interpretation (test code = Abnormal 05783-1) [facility] GLUCOSE (AUTOMATED)2020-06-23 01:54:49 Test Item Value Reference Range Interpretation Comments POCT GLU (test code = 3328730405) 191 mg/dL 70-110 H Lab Interpretation (test code = Abnormal 26815-8) [facility] Test Item Value Reference Range Interpretation Comments MAGNESIUM (test code = 4573103390) 2.3 mg/dL 1.7-2.4 Lab Interpretation (test code = Normal 38913-8) [facility] (NA, K, CL, CO2, GLUCOSE, BUN, CREATININE, CA)2020-06-22 22:50:46 Test Item Value Reference Range Interpretation Comments NA (test code = 145 mmol/L 135-145 0080985381) K (test code = 4.1 mmol/L 3.5-5.0 3333829337) CL (test code = 94 mmol/L 98-108 L 5097877289) CO2 TOTAL (test code = 44 mmol/L 23-31 H 5763123563) AGAP (test code = 2-16 8981480976) BUN (test code = 45 mg/dL 7-23 H 0054881912) GLUCOSE (test code = 221 mg/dL 70-110 H 8447116919) CREATININE (test code = 1.29 mg/dL 0.60-1.25 H 8347856047) CALCIUM (test code = 9.1 mg/dL 8.6-10.6 2164929665) eGFR (test code = mL/min/1.73m2 4196036408) eGFR Calculation mL/min/1.73m2 () (test code = 2607104892) MEG (test code = MEG) Association of Glomerular Filtration Rate (GFR) and Staging of Kidney Disease* + --+ --+ ------+| GFR (mL/min/1.73 m2) ?| With Kidney Damage ?| ?Without Kidney Damage+ --------+ --------+ +| ?>90 ?| ?Stage one ?| ? Normal ?+ ---+ ---+ -------+| ?60-89 ?| ?Stage two ?| ? Decreased GFR ? + --+ --+ ------+| ?30-59 ?| ?Stage three ?| ? Stage three ? + --+ --+ ------+| ?15-29 ?| ?Stage four ? | ? Stage four ?+ ---+ ---+ -------+| ?<15 (or dialysis) ? ?| ?Stage five ? | ? Stage five ?+ ---+ ---+ -------+ *Each stage assumes the associated GFR level has been in effect for at least three months. ?Stages 1 to 5, with or without kidney disease, indicate chronic kidney disease. Notes: Determination of stages one and two (with eGFR >59mL/min/1.73 m2) requires estimation of kidney damage for at least three months as defined by structural or functional abnormalities of the kidney, manifested by either:Pathological abnormalities or Markers of kidney damage (including abnormalities in the composition of the blood or urine or abnormalities in imaging tests). Lab Interpretation Abnormal (test code = 08334-7) [facility] with Hep[facility] Drip[facility]2020-06-22 21:30:10 Test Item Value Reference Range Interpretation Comments APTT Patient (test code See_Comment H [Au tomated message] = 3173-2) The system [employer] generated this result transmitted ref erence range: 26 - 36 Seconds. The reference range was not used to int erpret this result as normal/abnormal . Lab Interpretation (test Abnormal code = 27873-3) [facility] GLUCOSE (AUTOMATED)2020-06-22 20:50:20 Test Item Value Reference Range Interpretation Comments POCT GLU (test code = 7282314706) 192 mg/dL 70-110 H Lab Interpretation (test code = Abnormal 75380-0) [facility] GLUCOSE (AUTOMATED)2020-06-22 16:28:54 Test Item Value Reference Range Interpretation Comments POCT GLU (test code = 7864741792) 157 mg/dL 70-110 H Lab Interpretation (test code = Abnormal 73771-8) [facility] GLUCOSE (AUTOMATED)2020-06-22 12:50:27 Test Item Value Reference Range Interpretation Comments POCT GLU (test code = 6103523226) 95 mg/dL 70-110 Lab Interpretation (test code = Normal 33704-3) [facility]2021[facility] 09:36:54 Test Item Value Reference Range Interpretation Comments Procalcitonin (test 0.58 ng/mL <0.07 H code = 4837561734) MEG (test code = MEG) INTERPRETATION OF PROCALCITONIN RESULTS IN ADULTS >= 18 YEARS OF AGE Initiation and discontinuation of antibiotics on patients with suspected or confirmed Lower Respiratory Tract Infection in Adults >= 18 years of age. + +-------- --------+ + -----+|Procalcitonin |Interpretation ?|Antibiotic ? ? |Considerations ? |ng/mL ? | ?|recommendation | ? + +-------- --------+ + -----+| <0.1 ? | Bacterial ? ? ?| Strongly ? ? ?| ? | ?| infection very | discouraged ? | Overruling: ? | ?| unlikely ? ? ? | ? | ? Clinically unstable ? ? ? + +-------- --------+ + ? High risk for adverse ? ? | <0.25 ?| Bacterial ? ? ?| Discouraged ? | ? outcome ? | ?| infection ? ? ?| ? | ? SEE IMPORTANT NOTE ?| ?| unlikely ? ? ? | ? | ? + +-------- --------+ + -----+| >=0.25 ? ? ? | Bacterial ? ? ?| Encouraged ? ?| ? | ?| infection ? ? ?| ? | ? | ?| likely ? | ? | Consider treatment failure ?+ +------- ---------+ -+ if levels does not decrease | >0.5 ? | Bacterial ? ? ?| Strongly ? ? ?| appropriately ? | ?| infection very | encouraged ? ?| ? | ?| likely ? | ? | ? + +-------- --------+ + -----+ Discontinuation of antibiotics in high-acuity patients with suspected or confirmed sepsis in Adults >= 18 years of age. + +-------- --------+ + -----+|Procalcitonin |Interpretation ?|Antibiotic ? ? |Considerations ? |ng/mL ? | ?|recommendation | ? + +-------- --------+ + -----+| <0.25 ?| Bacterial ? ? ?| Strongly ? ? ?| ? | ?| infection very | discouraged ? | Overruling: ? | ?| unlikely ? ? ? | ? | ? Clinically unstable ? ? ? + +-------- --------+ + ? High risk for adverse ? ? | <0.5 or drop | Bacterial ? ? ?| Discouraged ? | ? outcome ? | >80% from ? ?| infection ? ? ?| ? | ? SEE IMPORTANT NOTE ?| highest PCT ?| unlikely ? ? ? | ? | ? | level ?| ?| ? | ? + +-------- --------+ + -----+| >=0.5 ?| Bacterial ? ? ?| Encouraged ? ?| ? | ?| infection ? ? ?| ? | ? | ?| likely ? | ? | Consider treatment failure ?+ +------- ---------+ -+ if levels does not decrease | >1.0 ? | Bacterial ? ? ?| Strongly ? ? ?| appropriately ? | ?| infection very | encouraged ? ?| ? | ?| likely ? | ? | ? + +-------- --------+ + -----+ Percentage of drop of Procalcitonin calculation for Discontinuation of antibiotics in high-acuity patients with suspected or confirmed sepsis in Adults >= 18 years of age. ? Procalcitonin highest{}-Procalcitonin current{}Delta Procalcitonin = x100% ? Procalcitonin current {} IMPORTANT NOTE: Procalcitonin may be elevated without bacterial infection by physiologic stress related to trauma, moore, chronic dialysis, metastatic cancer, surgery in the past seven days, malaria, some fungal infections, and some forms of vasculitis. The interpretation algorithm may not apply to patients with immunosuppression (equivalent of >10 mg of prednisone daily), HIV with CD4 cell count < 350 cells/mm3, active malignancy on systemic chemotherapy, solid organ transplant or hematopoietic stem cell transplantation, or hospital acquired pneumonia. Additionally, some clinical trials of procalcitonin have excluded patients with shock requiring vasopressor use, acute respiratory failure requiring mechanical ventilation, or those with known lung abscess/empyema. For further information please refer to:[email or web address] Lab Interpretation Abnormal (test code = 83540-9) [facility] Test Item Value Reference Range Interpretation Comments MAGNESIUM (test code = 4206795779) 1.7 mg/dL 1.7-2.4 Lab Interpretation (test code = Normal 28237-8) [facility] (NA, K, CL, CO2, GLUCOSE, BUN, CREATININE, CA)2020-06-22 09:22:12 Test Item Value Reference Range Interpretation Comments NA (test code = 143 mmol/L 135-145 4387288150) K (test code = 3.8 mmol/L 3.5-5.0 0778687863) CL (test code = 102 mmol/L 98-108 2048149649) CO2 TOTAL (test code = 38 mmol/L 23-31 H 0854516756) AGAP (test code = 2-16 1548127276) BUN (test code = 47 mg/dL 7-23 H 1530398846) GLUCOSE (test code = 65 mg/dL 70-110 L 7623686571) CREATININE (test code = 1.26 mg/dL 0.60-1.25 H 7980945944) CALCIUM (test code = 8.8 mg/dL 8.6-10.6 9802850639) eGFR (test code = mL/min/1.73m2 7864266465) eGFR Calculation mL/min/1.73m2 () (test code = 0320992193) MEG (test code = MEG) Association of Glomerular Filtration Rate (GFR) and Staging of Kidney Disease* + --+ --+ ------+| GFR (mL/min/1.73 m2) ?| With Kidney Damage ?| ?Without Kidney Damage+ --------+ --------+ +| ?>90 ?| ?Stage one ?| ? Normal ?+ ---+ ---+ -------+| ?60-89 ?| ?Stage two ?| ? Decreased GFR ? + --+ --+ ------+| ?30-59 ?| ?Stage three ?| ? Stage three ? + --+ --+ ------+| ?15-29 ?| ?Stage four ? | ? Stage four ?+ ---+ ---+ -------+| ?<15 (or dialysis) ? ?| ?Stage five ? | ? Stage five ?+ ---+ ---+ -------+ *Each stage assumes the associated GFR level has been in effect for at least three months. ?Stages 1 to 5, with or without kidney disease, indicate chronic kidney disease. Notes: Determination of stages one and two (with eGFR >59mL/min/1.73 m2) requires estimation of kidney damage for at least three months as defined by structural or functional abnormalities of the kidney, manifested by either:Pathological abnormalities or Markers of kidney damage (including abnormalities in the composition of the blood or urine or abnormalities in imaging tests). Lab Interpretation Abnormal (test code = 95033-6) [facility])2020-06-22 09:04:20 Test Item Value Reference Range Interpretation Comments POCT GLU (test code = 3889646848) 108 mg/dL 70-110 Lab Interpretation (test code = Normal 01356-0) [facility] CenterD-[id number] 08:56:12 Test Item Value Reference Interpretation Comments Range D-DIMER (test code = See_Comment H [Autom ated 8333126550) message] The system which generated this result transmitted reference range : <0.50 ?g/mL (FEU). The reference range was not used to interpret this result as normal/abnormal . MEG (test code = This test may be MEG) used in conjunction with a clinical pretest probability (PTP) assessment model to exclude venous thromboembolism (VTE) in patients suspected of deep venous thrombosis (DVT) and pulmonary embolism (PE) A D-Dimer value less than 0.50 ?g/ml (FEU) has a negative predicative value of 96 to 100% (95% CI)and 97 to 100% (95% CI) as an aid in the diagnosis of deep vein thrombosis (DVT) and pulmonary embolism when there is low or moderate pretest probability of PE or DVT. D-Dimer values are expressed in initial fibrinogen equivalent units (FEU)" The assay results should be used with other information, including the clinical context, in forming a diagnosis. Lab Interpretation Abnormal (test code = 68989-0) [facility] (for use with Heparin Drip)2020-06-22 08:56:12 Test Item Value Reference Range Interpretation Comments APTT Patient (test code See_Comment H [Au tomated message] = 3173-2) The system [employer] generated this result transmitted ref erence range: 26 - 36 Seconds. The reference range was not used to int erpret this result as normal/abnormal . Lab Interpretation (test Abnormal code = 34699-0) [facility]-[id number] 08:56:12 Test Item Value Reference Interpretation Comments Range D-DIMER (test code = See_Comment H [Autom ated 7910031898) message] The system which generated this result transmitted reference range : <0.50 ?g/mL (FEU). The reference range was not used to interpret this result as normal/abnormal . MEG (test code = This test may be MEG) used in conjunction with a clinical pretest probability (PTP) assessment model to exclude venous thromboembolism (VTE) in patients suspected of deep venous thrombosis (DVT) and pulmonary embolism (PE) A D-Dimer value less than 0.50 ?g/ml (FEU) has a negative predicative value of 96 to 100% (95% CI)and 97 to 100% (95% CI) as an aid in the diagnosis of deep vein thrombosis (DVT) and pulmonary embolism when there is low or moderate pretest probability of PE or DVT. D-Dimer values are expressed in initial fibrinogen equivalent units (FEU)" The assay results should be used with other information, including the clinical context, in forming a diagnosis. Lab Interpretation Abnormal (test code = 13028-2) [facility] WITH [id number] 08:35:30 Test Item Value Reference Range Interpretation Comments WBC (test code = See_Comment [Automated 5442-2) message] The sy stem which generated this result transmitted reference range : 4.20 - 10.70 10*3/?L. The reference range was not used to interpret this result as normal/abnormal . RBC (test code = See_Comment L [Automated 719-8) message] The sy stem which generated this result transmitted reference range : 4.26 - 5.52 10*6/?L. The reference range was not used to interpret this result as normal/abnormal . HGB (test code = 10.0 g/dL 12.2-16.4 L 718-7) HCT (test code = 35.2 % 38.4-49.3 L 4544-3) MCV (test code = 86.3 fL 81.7-95.6 787-2) MCH (test code = 24.5 pg 26.1-32.7 L 785-6) MCHC (test code = 28.4 g/dL 31.2-35.0 L 786-4) RDW-SD (test code = 56.2 fL 38.5-51.6 H 43580-0) RDW-CV (test code = 18.1 % 12.1-15.4 H 788-0) PLT (test code = See_Comment [Automated 777-3) message] The sy stem which generated this result transmitted reference range : 150 - 328 10*3/ ?L. The reference r delano was not used to interpret this result as normal/abnormal . MPV (test code = 11.0 fL 9.8-13.0 16090-4) NRBC/100 WBC (test See_Comment [Automat ed code = 6602851162) message] The system which generated this result transmitted reference range : 0.0 - 10.0 /100 WBCs. The refer ence range was not u sed to interpret th is result as normal/abnormal . NRBC x10^3 (test code <0.01 See_Comment [Auto mated = 9981687097) message] The s ystem which generated this result transmitted reference range : 10*3/?L. The reference range was not used to interpret this result as normal/abnormal . GRAN MAT (NEUT) % 78.9 % (test code = 770-8) IMM GRAN % (test code 0.40 % = 2815703482) LYMPH % (test code = 12.1 % 736-9) MONO % (test code = 8.3 % 5905-5) EOS % (test code = 0.0 % 713-8) BASO % (test code = 0.3 % 706-2) GRAN MAT x10^3(ANC) 7.05 10*3/uL 1.99-6.95 H (test code = 6013662203) IMM GRAN x10^3 (test 0.04 10*3/uL 0.00-0.06 code = 3293362112) LYMPH x10^3 (test code 1.08 10*3/uL 1.09-3.23 L = 731-0) MONO x10^3 (test code 0.74 10*3/uL 0.36-1.02 = 742-7) EOS x10^3 (test code = <0.03 0.06-0.53 L 711-2) BASO x10^3 (test code 0.03 10*3/uL 0.01-0.09 = 704-7) Lab Interpretation Abnormal (test code = 60476-2) [facility] GLUCOSE (AUTOMATED)2020-06-22 08:26:04 Test Item Value Reference Range Interpretation Comments POCT GLU (test code = 2052861600) 66 mg/dL 70-110 L Lab Interpretation (test code = Abnormal 11731-8) [facility] GLUCOSE (AUTOMATED)2020-06-22 04:58:35 Test Item Value Reference Range Interpretation Comments POCT GLU (test code = 3770735632) 79 mg/dL 70-110 Lab Interpretation (test code = Normal 83842-2) [facility] (for use with Heparin Drip)2020-06-22 02:33:36 Test Item Value Reference Range Interpretation Comments APTT Patient (test code See_Comment H [Au tomated message] = 3173-2) The system [employer] generated this result transmitted ref erence range: 26 - 36 Seconds. The reference range was not used to int erpret this result as normal/abnormal . Lab Interpretation (test Abnormal code = 89296-9) [facility] GLUCOSE (AUTOMATED)2020-06-22 00:55:52 Test Item Value Reference Range Interpretation Comments POCT GLU (test code = 2105394614) 83 mg/dL 70-110 Lab Interpretation (test code = Normal 17042-4) [facility] CenterMAGNESIUM2021-03-19 23:57:13 Test Item Value Reference Range Interpretation Comments MAGNESIUM (test code = 9114682625) 2.0 mg/dL 1.7-2.4 Lab Interpretation (test code = Normal 03106-9) [facility] (NA, K, CL, CO2, GLUCOSE, BUN, CREATININE, CA)2020-06-21 23:11:58 Test Item Value Reference Range Interpretation Comments NA (test code = 144 mmol/L 135-145 2501968417) K (test code = 3.4 mmol/L 3.5-5.0 L 2792196487) CL (test code = 100 mmol/L 98-108 1873075807) CO2 TOTAL (test code = 39 mmol/L 23-31 H 3287167731) AGAP (test code = 2-16 0856257189) BUN (test code = 42 mg/dL 7-23 H 6321721034) GLUCOSE (test code = 101 mg/dL 70-110 6116535017) CREATININE (test code = 1.49 mg/dL 0.60-1.25 H 5495515530) CALCIUM (test code = 8.6 mg/dL 8.6-10.6 7409272674) eGFR (test code = mL/min/1.73m2 0940372201) eGFR Calculation mL/min/1.73m2 () (test code = 8853392065) MEG (test code = MEG) Association of Glomerular Filtration Rate (GFR) and Staging of Kidney Disease* + --+ --+ ------+| GFR (mL/min/1.73 m2) ?| With Kidney Damage ?| ?Without Kidney Damage+ --------+ --------+ +| ?>90 ?| ?Stage one ?| ? Normal ?+ ---+ ---+ -------+| ?60-89 ?| ?Stage two ?| ? Decreased GFR ? + --+ --+ ------+| ?30-59 ?| ?Stage three ?| ? Stage three ? + --+ --+ ------+| ?15-29 ?| ?Stage four ? | ? Stage four ?+ ---+ ---+ -------+| ?<15 (or dialysis) ? ?| ?Stage five ? | ? Stage five ?+ ---+ ---+ -------+ *Each stage assumes the associated GFR level has been in effect for at least three months. ?Stages 1 to 5, with or without kidney disease, indicate chronic kidney disease. Notes: Determination of stages one and two (with eGFR >59mL/min/1.73 m2) requires estimation of kidney damage for at least three months as defined by structural or functional abnormalities of the kidney, manifested by either:Pathological abnormalities or Markers of kidney damage (including abnormalities in the composition of the blood or urine or abnormalities in imaging tests). Lab Interpretation Abnormal (test code = 61970-3) [facility]2020-06-21 21:16:32 Test Item Value Reference Range Interpretation Comments POCT GLU (test code = 5234442777) 103 mg/dL 70-110 Lab Interpretation (test code = Normal 20448-1) [facility] COVID [id number] 19:49:41COVID DMT InterpretationInterpretation/Recommendations: Molecular NAAT Tests for Active Infection with the SARS-CoV-2 Virus: The patient has currently tested negative for the SARS-CoV-2 virus that causes COVID-19 illness. This most likely indicates that the patient does not have an active infection with the SARS-CoV-2 virus. However, infection is not completely ruled out as the false negative rate for molecular NAAT testing using a nasopharyngeal sample can be up to 30%, mostly dependent on the timing of sample collection in relation to illness onset and any deficiencies in sampling techniques. If the patient has symptoms concerning for COVID-19 illness, a repeat NAAT test (PCR, Rapid ID Now, etc.) should be performed, at which time the SARS-CoV-2 virus - if present - may have reached a detectable viral load (usually peaking by the end of the first week of symptoms). Tests for IgM and/or IgG Antibodies to the SARS-CoV-2 Virus: If the patient develops COVID-19 illness in the future, testing for IgM and IgG antibodies approximately 3 weeks after illness onset will likely indicate if the patient has produced antibodies to the SARS-CoV-2 virus. However, some patients may take longer to develop detectable antibodies, while some patients who were infected with SARS-CoV-2 may never develop antibodies. While antibodies to SARS-CoV-2 may provide some degree of immunity, at this time the strength and duration of the antibody response is unknown. Interpretation Result Comments:These interpretation comments are based upon all COVID-19 testing the patient has had at [facility], including molecular NAAT testing (more commonly known as PCR testing and Rapid ID Now testing) and antibody testing. It does not take into account any testingthat a patient has had outside of the [facility] medical record. [facility] LABORATORY SERVICESCOVID IxdjopgOYQQ-[id number] NAAT (no units) ? ? Date ? Value ? 06/19/2020 ? Not Detected ? SARS-CoV-2 Rapid ID NOW (no units) ? ? Date ? Value ? 06/19/2020 ? Not Detected ? [facility] SERVICESUnPal[facility] CenterLAB ONLY COVID [id number] 19:27:33COVID DMT InterpretationInterpretation/Recommendations: Molecular NAAT Tests for Active Infection with the SARS-CoV-2 Virus: The patient has currently tested negative for the SARS-CoV-2 virus that causes COVID-19 illness. This most likely indicates that the patient does not have an active infection with the SARS-CoV-2 virus. However, infection is not completely ruled out as the false negative rate for molecular NAAT testing using a nasopharyngeal sample can be up to 30%, mostly dependent on the timing of sample collection in relation to illness onset and any deficiencies in sampling techniques. If the patient has symptoms concerning for COVID-19 illness, a repeat NAAT test (PCR, Rapid ID Now, etc.) should be performed, at which time the SARS-CoV-2 virus - if present - may have reached a detectable viral load (usually peaking by the end of the first week of symptoms). Tests for IgM and/or IgG Antibodies to the SARS-CoV-2 Virus: If the patient develops COVID-19 illness in the future, testing for IgM and IgG antibodies approximately 3 weeks after illness onset will likely indicate if the patient has produced antibodies to the SARS-CoV-2 virus. However, some patients may take longer to develop detectable antibodies, while some patients who were infected with SARS-CoV-2 may never develop antibodies. While antibodies to SARS-CoV-2 may provide some degree of immunity, at this time the strength and duration of the antibody response is unknown. ? ? Interpretation Result Comments:These interpretation comments are based upon all COVID-19 testing the patient has had at [facility], including molecular NAAT testing (more commonly known as PCR testing and Rapid ID Now testing) and antibody testing. It does not take into account any testing that a patient has had outside of the [facility] medical record. [facility] LABORATORY SERVICESCOVID ResultsSA RS-CoV-2 Rapid ID NOW (no units) ? ? Date ? Value ? 06/19/2020 ? Not Detected ? [facility] SERVICES [facility]2020-06-21 16:37:06 Test Item Value Reference Range Interpretation Comments POCT GLU (test code = 8510212094) 149 mg/dL 70-110 H Lab Interpretation (test code = Abnormal 33053-4) [facility] CenterPHOSPHORUS2021-03-19 14:22:17 Test Item Value Reference Range Interpretation Comments PHOSPHORUS (test code = 6752493189) 4.5 mg/dL 2.5-5.0 Lab Interpretation (test code = Normal 54172-2) [facility] CenterPHOS[facility]US2021-03-19 14:22:17 Test Item Value Reference Range Interpretation Comments PHOSPHORUS (test code = 5537439050) 4.5 mg/dL 2.5-5.0 Lab Interpretation (test code = Normal 60700-2) [facility] (for use with Heparin Drip)2020-06-21 14:14:38 Test Item Value Reference Range Interpretation Comments APTT Patient (test code See_Comment H [Au tomated message] = 3173-2) The system [employer] generated this result transmitted ref erence range: 26 - 36 Seconds. The reference range was not used to int erpret this result as normal/abnormal . Lab Interpretation (test Abnormal code = 75953-5) [facility] GLUCOSE (AUTOMATED)2020-06-21 12:43:35 Test Item Value Reference Range Interpretation Comments POCT GLU (test code = 0840687334) 173 mg/dL 70-110 H Lab Interpretation (test code = Abnormal 66600-3) [facility] GLUCOSE (AUTOMATED)2020-06-21 09:10:18 Test Item Value Reference Range Interpretation Comments POCT GLU (test code = 0219595135) 169 mg/dL 70-110 H Lab Interpretation (test code = Abnormal 99945-3) [facility] CenterTROPONIN [id number] 06:56:40 Test Item Value Reference Range Interpretation Comments TROPONIN I (test 0.098 ng/mL See_Comment H [Automated code = 4405450585) message] The system which generated this result transmitted reference range : <=0.034. The reference range was not used to interpret this result as normal/abnormal . MEG (test code = Equal or Less than MEG) 0.034 ng/ml---Normal ?Note: Cardiac troponin begins to rise 3-4 hours after the onset of ischemia. Repeat in 4-6 hours if the sample was drawn within 3-4 hours of the onset of the symptom and found normal. Between 0.035 and 0.120 ng/mL--- Borderline. Questionable myocardial injury or necrosis ? ?Note: Serial measurement may be necessary to confirm or exclude the diagnosis of myocardial injury or necrosis; Clinical correlation (symptoms, EKGs, imaging studies, and others) required; Repeat in 4-6 hours if clinically indicated. ? Equal or Higher than 0.121 ng/mL---Abnormal. Myocardial Injury or Necrosis Likely ? Biotin has been reported to cause a negative bias, interpret results relative to patient's use of biotin. ? Lab Interpretation Abnormal (test code = 35068-0) [facility] (NA, K, CL, CO2, GLUCOSE, BUN, CREATININE, CA)2020-06-21 06:43:00 Test Item Value Reference Range Interpretation Comments NA (test code = 141 mmol/L 135-145 1753460526) K (test code = 4.1 mmol/L 3.5-5.0 2503694014) CL (test code = 100 mmol/L 98-108 7922556107) CO2 TOTAL (test code = 34 mmol/L 23-31 H 3655872232) AGAP (test code = 2-16 7664439146) BUN (test code = 42 mg/dL 7-23 H 5629819323) GLUCOSE (test code = 155 mg/dL 70-110 H 6232924003) CREATININE (test code = 1.73 mg/dL 0.60-1.25 H 2640390131) CALCIUM (test code = 8.6 mg/dL 8.6-10.6 1113625740) eGFR (test code = mL/min/1.73m2 4526437972) eGFR Calculation mL/min/1.73m2 () (test code = 0430992934) MEG (test code = MEG) Association of Glomerular Filtration Rate (GFR) and Staging of Kidney Disease* + --+ --+ ------+| GFR (mL/min/1.73 m2) ?| With Kidney Damage ?| ?Without Kidney Damage+ --------+ --------+ +| ?>90 ?| ?Stage one ?| ? Normal ?+ ---+ ---+ -------+| ?60-89 ?| ?Stage two ?| ? Decreased GFR ? + --+ --+ ------+| ?30-59 ?| ?Stage three ?| ? Stage three ? + --+ --+ ------+| ?15-29 ?| ?Stage four ? | ? Stage four ?+ ---+ ---+ -------+| ?<15 (or dialysis) ? ?| ?Stage five ? | ? Stage five ?+ ---+ ---+ -------+ *Each stage assumes the associated GFR level has been in effect for at least three months. ?Stages 1 to 5, with or without kidney disease, indicate chronic kidney disease. Notes: Determination of stages one and two (with eGFR >59mL/min/1.73 m2) requires estimation of kidney damage for at least three months as defined by structural or functional abnormalities of the kidney, manifested by either:Pathological abnormalities or Markers of kidney damage (including abnormalities in the composition of the blood or urine or abnormalities in imaging tests). Lab Interpretation Abnormal (test code = 01472-2) [facility] CenterMAGN[facility]IUM2021-03-19 06:43:00 Test Item Value Reference Range Interpretation Comments MAGNESIUM (test code = 7856916590) 1.5 mg/dL 1.7-2.4 L Lab Interpretation (test code = Abnormal 05135-3) [place] [facility] WITH [id number] 06:19:18 Test Item Value Reference Range Interpretation Comments WBC (test code = See_Comment [Automated 6690-2) message] The sy stem which generated this result transmitted reference range : 4.20 - 10.70 10*3/?L. The reference range was not used to interpret this result as normal/abnormal . RBC (test code = See_Comment L [Automated 789-8) message] The sy stem which generated this result transmitted reference range : 4.26 - 5.52 10*6/?L. The reference range was not used to interpret this result as normal/abnormal . HGB (test code = 10.1 g/dL 12.2-16.4 L 718-7) HCT (test code = 35.1 % 38.4-49.3 L 4544-3) MCV (test code = 85.2 fL 81.7-95.6 787-2) MCH (test code = 24.5 pg 26.1-32.7 L 785-6) MCHC (test code = 28.8 g/dL 31.2-35.0 L 786-4) RDW-SD (test code = 55.6 fL 38.5-51.6 H 51371-5) RDW-CV (test code = 18.1 % 12.1-15.4 H 788-0) PLT (test code = See_Comment [Automated 777-3) message] The sy stem which generated this result transmitted reference range : 150 - 328 10*3/ ?L. The reference r delano was not used to interpret this result as normal/abnormal . MPV (test code = 10.7 fL 9.8-13.0 09603-5) NRBC/100 WBC (test See_Comment [Automat ed code = 5202326937) message] The system which generated this result transmitted reference range : 0.0 - 10.0 /100 WBCs. The refer ence range was not u sed to interpret th is result as normal/abnormal . NRBC x10^3 (test code <0.01 See_Comment [Auto mated = 7346005043) message] The s ystem which generated this result transmitted reference range : 10*3/?L. The reference range was not used to interpret this result as normal/abnormal . GRAN MAT (NEUT) % 93.7 % (test code = 770-8) IMM GRAN % (test code 0.20 % = 1675901862) LYMPH % (test code = 3.6 % 736-9) MONO % (test code = 2.4 % 5905-5) EOS % (test code = 0.0 % 713-8) BASO % (test code = 0.1 % 706-2) GRAN MAT x10^3(ANC) 8.17 10*3/uL 1.99-6.95 H (test code = 2475423278) IMM GRAN x10^3 (test <0.03 0.00-0.06 code = 2663718443) LYMPH x10^3 (test code 0.31 10*3/uL 1.09-3.23 L = 731-0) MONO x10^3 (test code 0.21 10*3/uL 0.36-1.02 L = 742-7) EOS x10^3 (test code = <0.03 0.06-0.53 L 711-2) BASO x10^3 (test code <0.03 0.01-0.09 = 704-7) Lab Interpretation Abnormal (test code = 89738-1) [facility]2020-06-21 05:03:17 Test Item Value Reference Range Interpretation Comments POCT GLU (test code = 8732602932) 139 mg/dL 70-110 H Lab Interpretation (test code = Abnormal 52691-1) [facility] (for use with Heparin Drip)2020-06-21 02:10:50 Test Item Value Reference Range Interpretation Comments APTT Patient (test code See_Comment H [Au tomated message] = 3173-2) The system [employer] generated this result transmitted ref erence range: 26 - 36 Seconds. The reference range was not used to int erpret this result as normal/abnormal . Lab Interpretation (test Abnormal code = 31040-4) [facility]2020-06-21 01:28:30 Test Item Value Reference Range Interpretation Comments POCT GLU (test code = 5117891941) 108 mg/dL 70-110 Lab Interpretation (test code = Normal 83070-4) [facility] CenterTROPONIN [id number] 23:32:42 Test Item Value Reference Range Interpretation Comments TROPONIN I (test 0.118 ng/mL See_Comment H [Automated code = 1891181846) message] The system which generated this result transmitted reference range : <=0.034. The reference range was not used to interpret this result as normal/abnormal . MEG (test code = Equal or Less than MEG) 0.034 ng/ml---Normal ?Note: Cardiac troponin begins to rise 3-4 hours after the onset of ischemia. Repeat in 4-6 hours if the sample was drawn within 3-4 hours of the onset of the symptom and found normal. Between 0.035 and 0.120 ng/mL--- Borderline. Questionable myocardial injury or necrosis ? ?Note: Serial measurement may be necessary to confirm or exclude the diagnosis of myocardial injury or necrosis; Clinical correlation (symptoms, EKGs, imaging studies, and others) required; Repeat in 4-6 hours if clinically indicated. ? Equal or Higher than 0.121 ng/mL---Abnormal. Myocardial Injury or Necrosis Likely ? Biotin has been reported to cause a negative bias, interpret results relative to patient's use of biotin. ? Lab Interpretation Abnormal (test code = 56635-1) [facility] CenterXR CHEST 1 [id number] 22:49:50 1. Slightly retracted right central line, with the tip overlying the midSVC.2. Persistent dense areas of consolidation due to collapse aspiration orpneumonia. Small pleural effusions could coexist. EXAM: XR CHEST 1 VW COMPARISON: 06/20/2020 HISTORY: R IJ central line adjustment FINDINGS: The right central line overlies the mid SVC. A gastric tube enters theabdomen, tip not included. Lungs: The lungs are slightly underexpanded with persistent denseconsolidative opacities in the lower lungs. Obscuration of the entire leftdiaphragm and partial obscuration of the medial right diaphragm. Heart/Mediastinum: Global cardiomegaly. Dilatation of the central pulmonaryarteries. Atherosclerotic calcifications of the aorta. Bones: No osseous lesions are detected. The soft tissues appear normal [facility], Radiant Results Inft User - 06/20/2020 5:50 PM CDTEXAM: XR CHEST 1 VWCOMPARISON: 06/20/2020HISTORY: R IJ centralline adjustment FINDINGS:The right central line overlies the mid SVC. A gastric tube enters theabdomen, tip not included.Lungs: The lungs are slightly underexpanded with persistent denseconsolidative opacities in the lower lungs. Obscuration of the entire leftdiaphragm and partial obscuration of the medial right diaphragm.Heart/Mediastinum: Global cardiomegaly. Dilatation of the central pulmonaryarteries. Atherosclerotic calcifications of the aorta.Bones: No osseous lesions are detected. The soft tissues appear normalIMPRESSION1. Slightly retracted right central line, with the tip overlying the midSVC.2. Persistent dense areas of consolidation due to collapse aspiration orpneumonia. Small pleural effusions could coexist.[facility] CenterAC PANEL 20 + LACTIC [id number] 22:49:00 Test Item Value Reference Range Interpretation Comments PH (test code = 2) 7.35-7.45 PCO2 (test code = See_Comment H [Automate d 0507469613) message] The sy stem which generated this result transmitted reference range : 35 - 45 mmHg. The reference range was not used to interpret this result as normal/abnormal . PO2 (test code = See_Comment L [Automated 1218828071) message] The sy stem which generated this result transmitted reference range : 80 - 100 mmHg. The reference range was not used to interpret this result as normal/abnormal . HCO3 (test code = See_Comment H [Automate d 5844106840) message] The sy stem which generated this result transmitted reference range : 22 - 26 mEq/L. The reference range was not used to interpret this result as normal/abnormal . BE (test code = See_Comment H [Automated 4842962620) message] The sy stem which generated this result transmitted reference range : -3.0 - 3.0 mEq/ L. The reference r delano was not used to interpret this result as normal/abnormal . THB (test code = 11.2 g/dL 13.5-18.0 L 4984116102) %O2HB (test code = 75.6 % 94.0-99.0 L 4326122188) %COHB ART (test code = 0.2 % 0.0-1.5 4583031184) %METHB ART (test code = 0.3 % 0.4-1.5 L 8479791516) VOL%O2 ART (test code = 11.9 % 15.0-23.0 L 4302559105) NA (test code = 142 mmol/L 135-145 1305286940) K+ (test code = 4.2 mmol/L 3.5-5.0 9449150623) AC CA IONZ (test code = 4.50 mg/dL 4.50-5.30 9476149811) GLUCOSE (test code = 108 mg/dL 70-110 4226938497) LACTIC ACID (test code 1.92 mmol/L 0.50-2.20 = 1422768743) Lab Interpretation Abnormal (test code = 22209-6) [facility] GLUCOSE (AUTOMATED)2020-06-20 22:24:46 Test Item Value Reference Range Interpretation Comments POCT GLU (test code = 2573005144) 96 mg/dL 70-110 Lab Interpretation (test code = Normal 62488-7) [facility] GLUCOSE (AUTOMATED)2020-06-20 22:24:46 Test Item Value Reference Range Interpretation Comments POCT GLU (test code = 0513143250) 87 mg/dL 70-110 Lab Interpretation (test code = Normal 24787-2) [facility] GLUCOSE (AUTOMATED)2020-06-20 22:24:46 Test Item Value Reference Range Interpretation Comments POCT GLU (test code = 1765703610) 94 mg/dL 70-110 Lab Interpretation (test code = Normal 52441-9) [facility] GLUCOSE (AUTOMATED)2020-06-20 22:24:41 Test Item Value Reference Range Interpretation Comments POCT GLU (test code = 1900837208) 104 mg/dL 70-110 Lab Interpretation (test code = Normal 19594-7) [facility] GLUCOSE (AUTOMATED)2020-06-20 22:24:41 Test Item Value Reference Range Interpretation Comments POCT GLU (test code = 1555685594) 46 mg/dL 70-110 LL Lab Interpretation (test code = Abnormal 99616-4) [facility] GLUCOSE (AUTOMATED)2020-06-20 22:24:41 Test Item Value Reference Range Interpretation Comments POCT GLU (test code = 6252490824) 74 mg/dL 70-110 Lab Interpretation (test code = Normal 42664-4) [facility] CenterCORONAVIRUS COVID-19 [id number] 21:55:19 Test Item Value Reference Range Interpretation Comments SARS-CoV-2 NAAT (test Not Detected Not Detected code = 57995-4) MEG (test code = MEG) [employer] Aptima SARS-CoV-2 Assay is a nucleic acid amplification test intended for the qualitative detection of RNA from SARS-CoV-2 from nasopharyngeal (DOCTORATE OF CHIROPRACTIC) specimens. ?It is used under Emergency Use Authorization (EUA) by FDA. A positive result is indicative of the presence of SARS-CoV-2 RNA. ?Clinical correlation with patient history and other diagnostic information is necessary to determine patient infection status. A negative (Not Detected) result does not preclude SARS-CoV-2 infection. ?Clinical correlation with patient history and other diagnostic information should be used in patient management decisions. Invalid: Unable to generate a valid test result on this specimen. ?Please submit a new specimen for repeat testing if clinically indicated. Lab Interpretation Normal (test code = 18766-2) [facility] CenteraPTT (for use with Heparin Drip)2020-06-20 20:06:30 Test Item Value Reference Range Interpretation Comments APTT Patient (test code See_Comment H [Au tomated message] = 3173-2) The system [employer] generated this result transmitted ref erence range: 26 - 36 Seconds. The reference range was not used to int erpret this result as normal/abnormal . Lab Interpretation (test Abnormal code = 01113-2) [facility] CenterINTACT PTH CALCIUM [id number] 19:48:47 Test Item Value Reference Range Interpretation Comments PTH-INTACT (test code = 93.2 pg/mL 12.0-88.0 H 7005462720) PTH-CA Interpretation Furthe r clinical (test code = 3495682434) abril a needed for interpretation. CALCIUM (test code = 8.6 mg/dL 8.6-10.6 2344177025) Lab Interpretation (test Abnormal code = 68530-8) [facility] PTH CALCIUM [id number] 19:48:47 Test Item Value Reference Range Interpretation Comments PTH-INTACT (test code = 93.2 pg/mL 12.0-88.0 H 8750711195) PTH-CA Interpretation Furthe r clinical (test code = 9040404943) abril a needed for interpretation. CALCIUM (test code = 8.6 mg/dL 8.6-10.6 7585964321) Lab Interpretation (test Abnormal code = 45218-9) [facility] CenterMRSA / MSSA Screen by PCR, [id number] 19:05:38 Test Item Value Reference Range Interpretation Comments MSSA Screen by PCR, Nares (test code Negative Negative = 27154-2) MRSA/MSSA Positive? (test code = No No 4437931659) Lab Interpretation (test code = Normal 25916-7) [facility] CenterMRSA / MSSA Screen by PCR, [id number] 19:05:38 Test Item Value Reference Range Interpretation Comments MSSA Screen by PCR, Nares (test code Negative Negative = 18619-8) MRSA/MSSA Positive? (test code = No No 2787468271) Lab Interpretation (test code = Normal 54842-5) [facility] CenterTROPONIN [id number] 18:41:10 Test Item Value Reference Range Interpretation Comments TROPONIN I (test 0.140 ng/mL See_Comment H [Automated code = 2505020593) message] The system which generated this result transmitted reference range : <=0.034. The reference range was not used to interpret this result as normal/abnormal . MEG (test code = Equal or Less than MEG) 0.034 ng/ml---Normal ?Note: Cardiac troponin begins to rise 3-4 hours after the onset of ischemia. Repeat in 4-6 hours if the sample was drawn within 3-4 hours of the onset of the symptom and found normal. Between 0.035 and 0.120 ng/mL--- Borderline. Questionable myocardial injury or necrosis ? ?Note: Serial measurement may be necessary to confirm or exclude the diagnosis of myocardial injury or necrosis; Clinical correlation (symptoms, EKGs, imaging studies, and others) required; Repeat in 4-6 hours if clinically indicated. ? Equal or Higher than 0.121 ng/mL---Abnormal. Myocardial Injury or Necrosis Likely ? Biotin has been reported to cause a negative bias, interpret results relative to patient's use of biotin. ? Lab Interpretation Abnormal (test code = 05931-2) [facility] CenterBALIV[facility]ABOL[facility] PAN[facility] (NA, K, CL, CO2, GLUCOSE, BUN, CREATININE, CA)2020-06-20 18:25:48 Test Item Value Reference Range Interpretation Comments NA (test code = 141 mmol/L 135-145 1356968847) K (test code = 4.3 mmol/L 3.5-5.0 2774392839) CL (test code = 102 mmol/L 98-108 9725920529) CO2 TOTAL (test code = 35 mmol/L 23-31 H 0028377474) AGAP (test code = 2-16 2218590167) BUN (test code = 41 mg/dL 7-23 H 5092434270) GLUCOSE (test code = 87 mg/dL 70-110 5141996676) CREATININE (test code = 2.28 mg/dL 0.60-1.25 H 7004288077) CALCIUM (test code = 8.6 mg/dL 8.6-10.6 9849536753) eGFR (test code = mL/min/1.73m2 2357227909) eGFR Calculation mL/min/1.73m2 () (test code = 0396380983) MEG (test code = MEG) Association of Glomerular Filtration Rate (GFR) and Staging of Kidney Disease* + --+ --+ ------+| GFR (mL/min/1.73 m2) ?| With Kidney Damage ?| ?Without Kidney Damage+ --------+ --------+ +| ?>90 ?| ?Stage one ?| ? Normal ?+ ---+ ---+ -------+| ?60-89 ?| ?Stage two ?| ? Decreased GFR ? + --+ --+ ------+| ?30-59 ?| ?Stage three ?| ? Stage three ? + --+ --+ ------+| ?15-29 ?| ?Stage four ? | ? Stage four ?+ ---+ ---+ -------+| ?<15 (or dialysis) ? ?| ?Stage five ? | ? Stage five ?+ ---+ ---+ -------+ *Each stage assumes the associated GFR level has been in effect for at least three months. ?Stages 1 to 5, with or without kidney disease, indicate chronic kidney disease. Notes: Determination of stages one and two (with eGFR >59mL/min/1.73 m2) requires estimation of kidney damage for at least three months as defined by structural or functional abnormalities of the kidney, manifested by either:Pathological abnormalities or Markers of kidney damage (including abnormalities in the composition of the blood or urine or abnormalities in imaging tests). Lab Interpretation Abnormal (test code = 93145-8) [facility] CenterMAGNESIUM2021-03-18 18:25:48 Test Item Value Reference Range Interpretation Comments MAGNESIUM (test code = 2062734562) 1.7 mg/dL 1.7-2.4 Lab Interpretation (test code = Normal 72170-1) [facility] CenterAbdominal 1 View - To confirm nasogastric tube placement.2020-06-20 16:35:07FINDINGS/IMPRESSION: The tip and sidehole of an NG tube are seen projecting over the distalstomach.The bowel gas pattern is normal. No abnormal calcifications or radiopaque stones are identified. No acute bony abnormalities are noted. Preliminary Report Dictated by Resident: Erica Rader I reviewed thisstudy and agree. Manuel Miramontes MD., have reviewed this study and agree with theabove report.EXAM: XR ABDOMEN 1 VW HISTORY: 64 years-old Male presenting with NGT placement COMPARISON: None, correlation with chest radiograph from 06/19/2020 TECHNIQUE: Frontal views of the abdomen and pelvis wereobtained. [facility], Radiant Results Inft User - 06/20/2020 11:36 AM CDTEXAM: XR ABDOMEN 1 VWHISTORY: 64 years-old Male presenting with NGT placement COMPARISON: None, correlation with chest radiograph from06/19/2020TECHNIQUE: Frontal views of the abdomen and pelvis were obtained.IMPRESSIONFINDINGS/IMPRESSION:The tip and sidehole of an NG tube are seen projecting over the distalstomach.The bowel gas pattern is normal. No abnormal calcifications or radiopaque stones are identified. No acute bony abnormalities are noted.Preliminary Report Dictated by Resident: Erica Membreno reviewed this study and agree.IManuel MD., have reviewed this study and agree with theabove report.[facility] CenterXR CHEST 1 [id number] 14:05:40EXAM: XR CHEST 1 VW HISTORY: central line placement (RIJ) COMPARISON: None. FINDINGS: The tip of the endotracheal tube is at the lower level of the clavicles lynn nasogastric tube passes through the thorax and into the stomach. The tipof the right IJ line is in the superior vena cava. The heart remainsslightly enlarged just to the left. Pleural effusions blunt thecostophrenic angles, and basilar pulmonary edema is present on both sides.The upper lungs are mildly congested but otherwise clear. ? [facility], Radiant Results Inft User - 06/20/2020 9:06 AM CDTEXAM: XR CHEST 1 VWHISTORY: central line placement (RIJ) COMPARISON: None.FINDINGS:The tip of the endotracheal tube is at the lower level of the clavicles lynn nasogastric tube passes through the thorax and into the stomach. The tipof the right IJ line is in the superior vena cava. The heart remainsslightly enlarged just to the left. Pleural effusions blunt thecostophrenic angles, and basilar pulmonary edema is present on both sides.The upper lungs are mildly congested but otherwise clear. [facility] CenterUS RETROPERITONEAL [id number] 13:27:41 HISTORY: WILBERT. TECHNIQUE: Both kidneys are evaluated in multiple planes with the patientin different positions. FINDINGS: RIGHT KIDNEY: Measures 11.9 x 6.5 x 5.4 cm with corticalthickness measuring up to 20 mm. No hydronephrosis or perinephric fluidcollection detected. LEFT KIDNEY: VERY POORLY VISUALIZED DUE TO GAS. Measures 9.5 x 4.8 x 4.2 cmin size with cortical thickness measuring up to 17 mm. ?No hydronephrosisor perinephric fluid collection. Quick look at the urinary bladder showed enlarged prostate gland withthickened bladder leija. Incidental note of mild splenomegaly. CONCLUSIONS:1. Normal ultrasound study of the right kidney. Lower portion of the leftkidney is poorly visualized due to gas.No left-sided hydronephrosis.2. Enlarged prostate suspected with thickened bladder leija.[facility], Radiant Results Inft User - 06/20/2020 8:28 AM CDTHISTORY: WILBERT.TECHNIQUE: Both kidneys are evaluated in multiple planes with the patientin different positions. FINDINGS: RIGHT KIDNEY: Measures 11.9 x 6.5 x 5.4 cm with corticalthickness measuring up to 20 mm. No hydronephrosis or perinephric fluidcollection detected.LEFT KIDNEY: VERY POORLY VISUALIZED DUE TO GAS. Measures 9.5 x 4.8 x 4.2 cmin size with cortical thickness measuring up to 17 mm. No hydronephrosisor perinephric fluid collection.Quick look at the urinary bladder showed enlarged prostate gland withthickened bladder leija. Incidental note of mild splenomegaly.CONCLUSIONS:1. Normal ultrasound study of the right kidney. Lower portion of the leftkidney is poorly visualized due to gas. No left-sided hydronephrosis.2. Enlarged prostate suspected with thickened bladder leija.[facility] RETROPERITONEAL [id number] 13:27:41HISTORY: WILBRET. TECHNIQUE: Both kidneys are evaluated in multiple planes with the patientin different positions. FINDINGS: RIGHT KIDNEY: Measures 11.9 x 6.5 x 5.4 cm with corticalthickness measuring up to 20 mm. No hydronephrosis or perinephric fluidcollection detected. LEFT KIDNEY: VERY POORLY VISUALIZED DUE TO GAS. Measures 9.5 x 4.8 x 4.2 cmin size with cortical thickness measuring up to 17 mm. ?No hydronephrosisor perinephric fluid collection. Quick look at the urinary bladder showed enlarged prostate gland withthickened bladder leija. Incidental note of mild splenomegaly. CONCLUSIONS:1. Normal ultrasound study of the right kidney. Lower portion of the leftkidney is poorly visualized due to gas.No left-sided hydronephrosis.2. Enlarged prostate suspected with thickened bladder leija.[facility] 8:28 AM CDTHISTORY: WILBERT.TECHNIQUE: Both kidneys are evaluated in multiple planes with the patientin different positions. FINDINGS: RIGHT KIDNEY: Measures 11.9 x 6.5 x 5.4 cm with corticalthickness measuring up to 20 mm. No hydronephrosis or perinephric fluidcollection detected.LEFT KIDNEY: VERY POORLY VISUALIZED DUE TO GAS. Measures 9.5 x 4.8 x 4.2 cmin size with cortical thickness measuring up to 17 mm. No hydronephrosisor perinephric fluid collection.Quick look at the urinary bladder showed enlarged prostate gland withthickened bladder leija. Incidental note of mild splenomegaly.CONCLUSIONS:1. Normal ultrasound study of the right kidney. Lower portion of the leftkidney is poorly visualized due to gas. No left-sided hydronephrosis.2. Enlarged prostate suspected with thickened bladder leija.[facility] CenterXR CHEST 1 [id number] 13:04:19EXAM: XR CHEST 1 VW HISTORY: SOB COMPARISON: None. FINDINGS: The tip of the endotracheal tube is at the lower level of the clavicles lynn nasogastric tube passes through the thorax and into the stomach. Theheart remains slightly enlarged due to the left with a partly calcifiedthoracic aorta. The air bronchograms behind the heart indicates at leastpartial consolidation of the left lower lobe. Pleural e ffusion blunts theright costophrenic angle. The lungs are clear otherwise. ? [facility], Radiant Results Inft User - 06/20/2020 8:05 AM CDTEXAM: XR CHEST 1 VWHISTORY: SOB COMPARISON: None.FINDINGS:The tip of the endotracheal tube is at the lower level of the clavicles lynn nasogastric tube passes through the thorax and into the stomach. Theheart remains slightly enlarged due to the left with a partly calcifiedthoracic aorta. The air bronchograms behind the heart indicates at leastpartial consolidation ofthe left lower lobe. Pleural effusion blunts theright costophrenic angle. The lungs are clear otherwise.[facility] CenterTroponin [id number] 11:35:06 Test Item Value Reference Range Interpretation Comments TROPONIN I (test 0.166 ng/mL See_Comment H [Automated code = 8212062670) message] The system which generated this result transmitted reference range : <=0.034. The reference range was not used to interpret this result as normal/abnormal . MEG (test code = Equal or Less than MEG) 0.034 ng/ml---Normal ?Note: Cardiac troponin begins to rise 3-4 hours after the onset of ischemia. Repeat in 4-6 hours if the sample was drawn within 3-4 hours of the onset of the symptom and found normal. Between 0.035 and 0.120 ng/mL--- Borderline. Questionable myocardial injury or necrosis ? ?Note: Serial measurement may be necessary to confirm or exclude the diagnosis of myocardial injury or necrosis; Clinical correlation (symptoms, EKGs, imaging studies, and others) required; Repeat in 4-6 hours if clinically indicated. ? Equal or Higher than 0.121 ng/mL---Abnormal. Myocardial Injury or Necrosis Likely ? Biotin has been reported to cause a negative bias, interpret results relative to patient's use of biotin. ? Lab Interpretation Abnormal (test code = 25205-5) [facility] CenterACTIVATED PARTIAL THRMPLAS [id number] 08:09:30 Test Item Value Reference Range Interpretation Comments APTT Patient (test code See_Comment H [Au tomated message] = 3173-2) The system [employer] generated this result transmitted ref erence range: 26 - 36 Seconds. The reference range was not used to int erpret this result as normal/abnormal . Lab Interpretation (test Abnormal code = 59501-7) [facility] CenterD-[id number] 07:32:27 Test Item Value Reference Interpretation Comments Range D-DIMER (test code = See_Comment H [Autom ated 2335347043) message] The system which generated this result transmitted reference range : <0.50 ?g/mL (FEU). The reference range was not used to interpret this result as normal/abnormal . MEG (test code = This test may be MEG) used in conjunction with a clinical pretest probability (PTP) assessment model to exclude venous thromboembolism (VTE) in patients suspected of deep venous thrombosis (DVT) and pulmonary embolism (PE) A D-Dimer value less than 0.50 ?g/ml (FEU) has a negative predicative value of 96 to 100% (95% CI)and 97 to 100% (95% CI) as an aid in the diagnosis of deep vein thrombosis (DVT) and pulmonary embolism when there is low or moderate pretest probability of PE or DVT. D-Dimer values are expressed in initial fibrinogen equivalent units (FEU)" The assay results should be used with other information, including the clinical context, in forming a diagnosis. Lab Interpretation Abnormal (test code = 41370-2) [facility] CenterLipid Panel (Total Cholesterol, Triglycerides, HDL)2020-06-20 07:31:27 Test Item Value Reference Range Interpretation Comments CHOL (test code = 111 mg/dL 120-200 L 9538251826) HDL (test code = 24 mg/dL >40 L 7240646287) HDLC RATIO (test code = See_Comment [Au tomated message] 8599151092) The system [employer] generated this result transmit glo reference range : <=5.0. The refe rence range was not u sed to interpret th is result as normal/abnormal . TRIG (test code = 66 mg/dL 30-170 6693115813) LDL CHOL (test code = 74 mg/dL See_Comment [Auto mated message] 48505-9) The system [employer] generated this result transmit glo reference range : <=160. The refe rence range was not u sed to interpret th is result as normal/abnormal . VLDL (test code = 13 mg/dL 5-60 2576026958) Lab Interpretation (test Abnormal code = 02618-7) [facility] (Total Cholesterol, Triglycerides, HDL)2020-06-20 07:31:27 Test Item Value Reference Range Interpretation Comments CHOL (test code = 111 mg/dL 120-200 L 9618039718) HDL (test code = 24 mg/dL >40 L 1064972557) HDLC RATIO (test code = See_Comment [Au tomated message] 7715611819) The system [employer] generated this result transmit glo reference range : <=5.0. The refe rence range was not u sed to interpret th is result as normal/abnormal . TRIG (test code = 66 mg/dL 30-170 8477411496) LDL CHOL (test code = 74 mg/dL See_Comment [Auto mated message] 97478-9) The system [employer] generated this result transmit glo reference range : <=160. The refe rence range was not u sed to interpret th is result as normal/abnormal . VLDL (test code = 13 mg/dL 5-60 6542930920) Lab Interpretation (test Abnormal code = 99931-8) [facility] METABOLIC PANEL (NA, K, CL, CO2, GLUCOSE, BUN, CREATININE, CA)2020-06-20 07:31:07 Test Item Value Reference Range Interpretation Comments NA (test code = 141 mmol/L 135-145 5826988815) K (test code = 5.3 mmol/L 3.5-5.0 H 7779114065) CL (test code = 102 mmol/L 98-108 3808917361) CO2 TOTAL (test code = 30 mmol/L 23-31 1884613066) AGAP (test code = 2-16 2564395460) BUN (test code = 36 mg/dL 7-23 H 8683821665) GLUCOSE (test code = 118 mg/dL 70-110 H 1251072546) CREATININE (test code = 2.64 mg/dL 0.60-1.25 H 9963902054) CALCIUM (test code = 8.0 mg/dL 8.6-10.6 L 8704518733) eGFR (test code = mL/min/1.73m2 2805186472) eGFR Calculation mL/min/1.73m2 () (test code = 7146475208) MEG (test code = MEG) Association of Glomerular Filtration Rate (GFR) and Staging of Kidney Disease* + --+ --+ ------+| GFR (mL/min/1.73 m2) ?| With Kidney Damage ?| ?Without Kidney Damage+ --------+ --------+ +| ?>90 ?| ?Stage one ?| ? Normal ?+ ---+ ---+ -------+| ?60-89 ?| ?Stage two ?| ? Decreased GFR ? + --+ --+ ------+| ?30-59 ?| ?Stage three ?| ? Stage three ? + --+ --+ ------+| ?15-29 ?| ?Stage four ? | ? Stage four ?+ ---+ ---+ -------+| ?<15 (or dialysis) ? ?| ?Stage five ? | ? Stage five ?+ ---+ ---+ -------+ *Each stage assumes the associated GFR level has been in effect for at least three months. ?Stages 1 to 5, with or without kidney disease, indicate chronic kidney disease. Notes: Determination of stages one and two (with eGFR >59mL/min/1.73 m2) requires estimation of kidney damage for at least three months as defined by structural or functional abnormalities of the kidney, manifested by either:Pathological abnormalities or Markers of kidney damage (including abnormalities in the composition of the blood or urine or abnormalities in imaging tests). Lab Interpretation Abnormal (test code = 69250-0) [facility] CenterMAGNESIUM2021-03-18 07:31:07 Test Item Value Reference Range Interpretation Comments MAGNESIUM (test code = 0919326576) 1.8 mg/dL 1.7-2.4 Lab Interpretation (test code = Normal 84893-6) [facility]BAL[facility] (NA, K, CL, CO2, GLUCOSE, BUN, CREATININE, CA)2020-06-20 07:26:45 Test Item Value Reference Range Interpretation Comments NA (test code = 142 mmol/L 135-145 3179190223) K (test code = 4.2 mmol/L 3.5-5.0 0962449740) CL (test code = 106 mmol/L 98-108 7443044850) CO2 TOTAL (test code = 29 mmol/L 23-31 9633010870) AGAP (test code = 2-16 1756713018) BUN (test code = 35 mg/dL 7-23 H 7599104666) GLUCOSE (test code = 98 mg/dL 70-110 8977653481) CREATININE (test code = 2.43 mg/dL 0.60-1.25 H 8767472776) CALCIUM (test code = 7.5 mg/dL 8.6-10.6 L 9721088192) eGFR (test code = mL/min/1.73m2 0789882661) eGFR Calculation mL/min/1.73m2 () (test code = 3819286313) MEG (test code = MEG) Association of Glomerular Filtration Rate (GFR) and Staging of Kidney Disease* + --+ --+ ------+| GFR (mL/min/1.73 m2) ?| With Kidney Damage ?| ?Without Kidney Damage+ --------+ --------+ +| ?>90 ?| ?Stage one ?| ? Normal ?+ ---+ ---+ -------+| ?60-89 ?| ?Stage two ?| ? Decreased GFR ? + --+ --+ ------+| ?30-59 ?| ?Stage three ?| ? Stage three ? + --+ --+ ------+| ?15-29 ?| ?Stage four ? | ? Stage four ?+ ---+ ---+ -------+| ?<15 (or dialysis) ? ?| ?Stage five ? | ? Stage five ?+ ---+ ---+ -------+ *Each stage assumes the associated GFR level has been in effect for at least three months. ?Stages 1 to 5, with or without kidney disease, indicate chronic kidney disease. Notes: Determination of stages one and two (with eGFR >59mL/min/1.73 m2) requires estimation of kidney damage for at least three months as defined by structural or functional abnormalities of the kidney, manifested by either:Pathological abnormalities or Markers of kidney damage (including abnormalities in the composition of the blood or urine or abnormalities in imaging tests). Lab Interpretation Abnormal (test code = 25277-1) [facility] CenterAC PANEL 20 + LACTIC [id number] 07:23:20 Test Item Value Reference Range Interpretation Comments PH (test code = 2) 7.35-7.45 PCO2 (test code = See_Comment H [Automate d 7049570880) message] The sy stem which generated this result transmitted reference range : 35 - 45 mmHg. The reference range was not used to interpret this result as normal/abnormal . PO2 (test code = See_Comment L [Automated 5697676030) message] The sy stem which generated this result transmitted reference range : 80 - 100 mmHg. The reference range was not used to interpret this result as normal/abnormal . HCO3 (test code = See_Comment H [Automate d 9336423843) message] The sy stem which generated this result transmitted reference range : 22 - 26 mEq/L. The reference range was not used to interpret this result as normal/abnormal . BE (test code = See_Comment H [Automated 3160496707) message] The sy stem which generated this result transmitted reference range : -3.0 - 3.0 mEq/ L. The reference r delano was not used to interpret this result as normal/abnormal . THB (test code = 11.2 g/dL 13.5-18.0 L 4693598523) %O2HB (test code = 81.7 % 94.0-99.0 L 0971515151) %COHB ART (test code = 0.5 % 0.0-1.5 0390667970) %METHB ART (test code = 0.1 % 0.4-1.5 L 0070464978) VOL%O2 ART (test code = 12.9 % 15.0-23.0 L 1441815773) NA (test code = 142 mmol/L 135-145 3007988178) K+ (test code = 4.5 mmol/L 3.5-5.0 7260903132) AC CA IONZ (test code = 4.60 mg/dL 4.50-5.30 0426948499) GLUCOSE (test code = 99 mg/dL 70-110 7767261872) LACTIC ACID (test code 1.22 mmol/L 0.50-2.20 = 1155810033) Lab Interpretation Abnormal (test code = 94324-4) [facility] CenterLactic Acid Whole [id number] 07:20:08 Test Item Value Reference Range Interpretation Comments LACTIC ACID (test code = 1.46 mmol/L 0.50-2.20 1714325307) Lab Interpretation (test code = Normal 70222-1) [facility] CenterUREA NITROGEN, URINE [id number] 07:10:01 Test Item Value Reference Range Interpretation Comments UREA N UR (test code = 1817957299) 146 mg/dL [facility] CenterCREATININE, URINE [id number] 07:10:01 Test Item Value Reference Range Interpretation Comments CREAT U (test code = 3721252008) 65.7 mg/dL [facility] CenterUREA NITROGEN, URINE [id number] 07:10:01 Test Item Value Reference Range Interpretation Comments UREA N UR (test code = 8928769226) 146 mg/dL [facility] CenterSODIUM, URINE [id number] 07:10:01 Test Item Value Reference Range Interpretation Comments NA URINE (test code = 8601097983) 111 mmol/L [facility] CenterCBC WITH [id number] 07:02:40 Test Item Value Reference Range Interpretation Comments WBC (test code = See_Comment [Automated 6690-2) message] The sy stem which generated this result transmitted reference range : 4.20 - 10.70 10*3/?L. The reference range was not used to interpret this result as normal/abnormal . RBC (test code = See_Comment L [Automated 789-8) message] The sy stem which generated this result transmitted reference range : 4.26 - 5.52 10*6/?L. The reference range was not used to interpret this result as normal/abnormal . HGB (test code = 9.6 g/dL 12.2-16.4 L 718-7) HCT (test code = 34.3 % 38.4-49.3 L 4544-3) MCV (test code = 87.9 fL 81.7-95.6 787-2) MCH (test code = 24.6 pg 26.1-32.7 L 785-6) MCHC (test code = 28.0 g/dL 31.2-35.0 L 786-4) RDW-SD (test code = 57.6 fL 38.5-51.6 H 44848-4) RDW-CV (test code = 18.2 % 12.1-15.4 H 788-0) PLT (test code = See_Comment [Automated 777-3) message] The sy stem which generated this result transmitted reference range : 150 - 328 10*3/ ?L. The reference r delano was not used to interpret this result as normal/abnormal . MPV (test code = 11.6 fL 9.8-13.0 44039-1) NRBC/100 WBC (test See_Comment [Automat ed code = 9023288258) message] The system which generated this result transmitted reference range : 0.0 - 10.0 /100 WBCs. The refer ence range was not u sed to interpret th is result as normal/abnormal . NRBC x10^3 (test code <0.01 See_Comment [Auto mated = 5788937244) message] The s ystem which generated this result transmitted reference range : 10*3/?L. The reference range was not used to interpret this result as normal/abnormal . GRAN MAT (NEUT) % 88.6 % (test code = 770-8) IMM GRAN % (test code 0.50 % = 6279098586) LYMPH % (test code = 6.0 % 736-9) MONO % (test code = 4.8 % 5905-5) EOS % (test code = 0.0 % 713-8) BASO % (test code = 0.1 % 706-2) GRAN MAT x10^3(ANC) 7.64 10*3/uL 1.99-6.95 H (test code = 4675787236) IMM GRAN x10^3 (test 0.04 10*3/uL 0.00-0.06 code = 3057125487) LYMPH x10^3 (test code 0.52 10*3/uL 1.09-3.23 L = 731-0) MONO x10^3 (test code 0.41 10*3/uL 0.36-1.02 = 742-7) EOS x10^3 (test code = <0.03 0.06-0.53 L 711-2) BASO x10^3 (test code <0.03 0.01-0.09 = 704-7) Lab Interpretation Abnormal (test code = 57648-0) [facility] CenterChubig [facility] centertimi [id number] 04:41:29 Test Item Value Reference Range Interpretation Comments TROPONIN I (test 0.127 ng/mL See_Comment H [Automated code = 8167888790) message] The system which generated this result transmitted reference range : <=0.034. The reference range was not used to interpret this result as normal/abnormal . MEG (test code = Equal or Less than MEG) 0.034 ng/ml---Normal ?Note: Cardiac troponin begins to rise 3-4 hours after the onset of ischemia. Repeat in 4-6 hours if the sample was drawn within 3-4 hours of the onset of the symptom and found normal. Between 0.035 and 0.120 ng/mL--- Borderline. Questionable myocardial injury or necrosis ? ?Note: Serial measurement may be necessary to confirm or exclude the diagnosis of myocardial injury or necrosis; Clinical correlation (symptoms, EKGs, imaging studies, and others) required; Repeat in 4-6 hours if clinically indicated. ? Equal or Higher than 0.121 ng/mL---Abnormal. Myocardial Injury or Necrosis Likely ? Biotin has been reported to cause a negative bias, interpret results relative to patient's use of biotin. ? Lab Interpretation Abnormal (test code = 69904-9) [facility] CenterAC ABG + LACTIC [id number] 03:47:05 Test Item Value Reference Range Interpretation Comments PH (test code = 2) 7.35-7.45 PCO2 (test code = See_Comment [Automate d 7220936335) message] The sy stem which generated this result transmitted reference range : 35 - 45 mmHg. The reference range was not used to interpret this result as normal/abnormal . PO2 (test code = See_Comment L [Automated 5233258886) message] The sy stem which generated this result transmitted reference range : 80 - 100 mmHg. The reference range was not used to interpret this result as normal/abnormal . HCO3 (test code = See_Comment [Automate d 5394333273) message] The sy stem which generated this result transmitted reference range : 22 - 26 mEq/L. The reference range was not used to interpret this result as normal/abnormal . BE (test code = See_Comment [Automated 0522012614) message] The sy stem which generated this result transmitted reference range : -3.0 - 3.0 mEq/ L. The reference r delano was not used to interpret this result as normal/abnormal . LACTIC ACID (test code 1.34 mmol/L 0.50-2.20 = 0531830834) Lab Interpretation Abnormal (test code = 62846-2) [facility] CenterAC ABG + LACTIC [id number] 03:47:05 Test Item Value Reference Range Interpretation Comments PH (test code = 2) 7.35-7.45 PCO2 (test code = See_Comment [Automate d 7042368566) message] The sy stem which generated this result transmitted reference range : 35 - 45 mmHg. The reference range was not used to interpret this result as normal/abnormal . PO2 (test code = See_Comment L [Automated 3029563320) message] The sy stem which generated this result transmitted reference range : 80 - 100 mmHg. The reference range was not used to interpret this result as normal/abnormal . HCO3 (test code = See_Comment [Automate d 7734399599) message] The sy stem which generated this result transmitted reference range : 22 - 26 mEq/L. The reference range was not used to interpret this result as normal/abnormal . BE (test code = See_Comment [Automated 5019923236) message] The sy stem which generated this result transmitted reference range : -3.0 - 3.0 mEq/ L. The reference r delano was not used to interpret this result as normal/abnormal . LACTIC ACID (test code 1.34 mmol/L 0.50-2.20 = 4701457434) Lab Interpretation Abnormal (test code = 91960-5) [facility] CenterURINALYSIS2021-03-18 02:50:54 Test Item Value Reference Range Interpretation Comments APPEARANCE (test code = Cloudy Clear A 9328305883) COLOR (test code = Addie Yellow A 4167438825) PH (test code = 4.8-8.0 8108808525) SP GRAVITY (test code = 1.003-1.030 0260102923) GLU U QUAL (test code = Normal Normal 1583638725) BLOOD (test code = 3+ Negative A 9672001077) KETONES (test code = Negative Negative 3936920473) PROTEIN (test code = 100 mg/dL Negative A 2887-8) UROBILIN (test code = 4.0 mg/dL Normal A 6882737867) BILIRUBIN (test code = 2 mg/dL Negative A 1230992081) NITRITE (test code = Negative Negative 6654330968) LEUK BARTOLO (test code = 75/uL Negative A 6953361982) RBC/HPF (test code = >182 See_Comment H [Autom ated message] 9159142805) The system [employer] generated this result transmit glo reference range : 0 - 3 HPF. The refe rence range was not u sed to interpret th is result as normal/abnormal . WBC/HPF (test code = See_Comment H [Autom ated message] 0297615255) The system [employer] generated this result transmit glo reference range : 0 - 5 HPF. The refe rence range was not u sed to interpret th is result as normal/abnormal . BACTERIA (test code = Many Negative A 9948572876) MUCOUS (test code = Slight Negative LPF A 1117698051) AMORPHOUS (test code = Moderate Rare HPF A 1595337584) SQ EPITH (test code = HPF 9340638206) HYAL CAST (test code = See_Comment H [Aut omated message] 4220569365) The system [employer] generated this result transmit glo reference range : <=2 LPF. The refere nce range was not u sed to interpret th is result as normal/abnormal . Ictotest (test code = Positive 5851344707) GRAN CASTS (test code = See_Comment H [Au tomated message] 3080361827) The system [employer] generated this result transmit glo reference range : <=1 LPF. The refere nce range was not u sed to interpret th is result as normal/abnormal . Lab Interpretation (test Abnormal code = 39455-7) [facility] CenterPOCT GLUCOSE (AUTOMATED)2020-06-20 01:00:54 Test Item Value Reference Range Interpretation Comments POCT GLU (test code = 1941255985) 110 mg/dL 70-110 Lab Interpretation (test code = Normal 37605-3) [facility] CenteraPTT2021-03-18 00:06:15 Test Item Value Reference Range Interpretation Comments APTT Patient (test See_Comment [Automat ed code = 3173-2) message] The system which generated this result transmitted reference range : 23 - 38 Seconds . The reference range was not used to interpr et this result as normal/abnormal . MEG (test code = MEG) The [facility] patient population mean normal value for aPTT is 30 seconds. Lab Interpretation Normal (test code = 73904-2) [facility] CenterProthrombin Time (PT) / [id number] 00:03:33 Test Item Value Reference Range Interpretation Comments PROTIME PATIENT (test See_Comment [Auto mated message] code = 5964-2) The system [employer] generated this result transmitted ref erence range: 12.0 - 1 4.7 Seconds. The re ference range was not u sed to interpret this result as normal/abnor mal. INR (test code = 6301-6) Nor mal INR <1.1; Warfarin Therap eutic range 2.0 to 3. 0 or 2.5 to 3.5, dep ending upon the indica tions. Lab Interpretation (test Normal code = 35817-6) [facility] CenterURIC [id number] 22:23:59 Test Item Value Reference Range Interpretation Comments URIC ACID (test code = 4406884769) 9.0 mg/dL 3.6-8.0 H Lab Interpretation (test code = Abnormal 93942-6) [facility] CenterURIC [id number] 22:23:59 Test Item Value Reference Range Interpretation Comments URIC ACID (test code = 4398196523) 9.0 mg/dL 3.6-8.0 H Lab Interpretation (test code = Abnormal 31263-1) [facility] CenterCREATINE [id number] 22:23:19 Test Item Value Reference Range Interpretation Comments CK (test code = 2815536591) 30 U/L 33-194 L Lab Interpretation (test code = Abnormal 76500-3) [facility] CenterCREATINE [id number] 22:23:19 Test Item Value Reference Range Interpretation Comments CK (test code = 3415344254) 30 U/L 33-194 L Lab Interpretation (test code = Abnormal 95155-5) [facility] CenterUrinalysis2021-03-17 22:18:59 Test Item Value Reference Range Interpretation Comments APPEARANCE (test code = Cloudy Clear A 4794849540) COLOR (test code = Addie Yellow A 6899270554) PH (test code = 4.8-8.0 0075425022) SP GRAVITY (test code = 1.003-1.030 3956204994) GLU U QUAL (test code = Normal Normal 7350378252) BLOOD (test code = 1+ Negative A 5404963468) KETONES (test code = Negative Negative 7498635146) PROTEIN (test code = 100 mg/dL Negative A 2887-8) UROBILIN (test code = 4.0 mg/dL Normal A 1308243760) BILIRUBIN (test code = 2 mg/dL Negative A 5118670689) NITRITE (test code = Negative Negative 7172326978) LEUK BARTOLO (test code = Negative Negative 2579228903) RBC/HPF (test code = See_Comment H [Autom ated message] 8320525421) The system [employer] generated this result transmit glo reference range : 0 - 3 HPF. The refe rence range was not u sed to interpret th is result as normal/abnormal . WBC/HPF (test code = See_Comment H [Autom ated message] 9782978727) The system [employer] generated this result transmit glo reference range : 0 - 5 HPF. The refe rence range was not u sed to interpret th is result as normal/abnormal . BACTERIA (test code = Moderate Negative A 6147880665) MUCOUS (test code = Slight Negative LPF A 3864505507) AMORPHOUS (test code = Few Rare HPF A 3510030135) SQ EPITH (test code = <1 HPF 7462853976) WBC CLUMPS (test code = See_Comment H [Au tomated message] 2023105991) The system [employer] generated this result transmit glo reference range : <=1 HPF. The refere nce range was not u sed to interpret th is result as normal/abnormal . HYAL CAST (test code = See_Comment H [Aut omated message] 2601635549) The system [employer] generated this result transmit glo reference range : <=2 LPF. The refere nce range was not u sed to interpret th is result as normal/abnormal . Lab Interpretation (test Abnormal code = 64184-5) [facility] CenterPOCT GLUCOSE (AUTOMATED)2020-06-19 21:47:32 Test Item Value Reference Range Interpretation Comments POCT GLU (test code = 0556568909) 123 mg/dL 70-110 H Lab Interpretation (test code = Abnormal 33954-8) [facility] CenterTroponin [id number] 21:40:47 Test Item Value Reference Range Interpretation Comments TROPONIN I (test 0.102 ng/mL See_Comment H [Automated code = 9582344294) message] The system which generated this result transmitted reference range : <=0.034. The reference range was not used to interpret this result as normal/abnormal . MEG (test code = Equal or Less than MEG) 0.034 ng/ml---Normal ?Note: Cardiac troponin begins to rise 3-4 hours after the onset of ischemia. Repeat in 4-6 hours if the sample was drawn within 3-4 hours of the onset of the symptom and found normal. Between 0.035 and 0.120 ng/mL--- Borderline. Questionable myocardial injury or necrosis ? ?Note: Serial measurement may be necessary to confirm or exclude the diagnosis of myocardial injury or necrosis; Clinical correlation (symptoms, EKGs, imaging studies, and others) required; Repeat in 4-6 hours if clinically indicated. ? Equal or Higher than 0.121 ng/mL---Abnormal. Myocardial Injury or Necrosis Likely ? Biotin has been reported to cause a negative bias, interpret results relative to patient's use of biotin. ? Lab Interpretation Abnormal (test code = 17056-5) [facility] CenterThyroid Stimulating Hormone (TSH)2020-06-19 20:37:32 Test Item Value Reference Range Interpretation Comments TSH (test code = See_Comment Biotin has been 9264071295) reported to cau se a negative bias, interpret resul ts relative to pat ient's use of biotin. [Automated mess age] The system [employer] generated this result transmitted ref erence range: 0.45 - 4 .70 mIU/L. The refe rence range was not u sed to interpret this result as normal/abnor mal. Lab Interpretation (test Normal code = 16102-8) [facility] CenterThyroid Stimulating Hormone (TSH)2020-06-19 20:37:32 Test Item Value Reference Range Interpretation Comments TSH (test code = See_Comment Biotin has been [id number]) reported to cau se a negative bias, interpret resul ts relative to pat ient's use of biotin. [Automated mess age] The system [employer] generated this result transmitted ref erence range: 0.45 - 4 .70 mIU/L. The refe rence range was not u sed to interpret this result as normal/abnor mal. Lab Interpretation (test Normal code = 40809-4) [facility] (A[facility]C)2020-06-19 20:24:22 Test Item Value Reference Range Interpretation Comments HGB A1C (test code = 5.5 % 4.0-6.0 4548-4) MEG (test code = MEG) %A1C (NGSP) Interpretation (ADA)4.8-5.6 ? ? Normal or (Non-Diabetic Range)5.7-6.4 ? ? Increased Risk (Pre-Diabetic)>6.5 ?Diabetes Indicated Lab Interpretation Normal (test code = 35785-4) [facility] (A1C)2020-06-19 20:24:22 Test Item Value Reference Range Interpretation Comments HGB A1C (test code = 5.5 % 4.0-6.0 4548-4) MEG (test code = MEG) %A1C (NGSP) Interpretation (ADA)4.8-5.6 ? ? Normal or (Non-Diabetic Range)5.7-6.4 ? ? Increased Risk (Pre-Diabetic)>6.5 ?Diabetes Indicated Lab Interpretation Normal (test code = 25806-2) [facility] Care Arterial Blood Gas.2020-06-19 19:57:46 Test Item Value Reference Range Interpretation Comments PH (test code = 2) 7.35-7.45 L PCO2 (test code = See_Comment H [Automate d message] [id number]) The system [employer] generated this result transmitted ref erence range: 35 - 45 mmHg. The reference r delano was not used to interpret this result as normal/abnor mal. PO2 (test code = See_Comment L [Automated message] [id number]) The system [employer] generated this result transmitted ref erence range: 80 - 100 mmHg. The reference r delano was not used to interpret this result as normal/abnor mal. HCO3 (test code = See_Comment H [Automate d message] [id number]) The system [employer] generated this result transmitted ref erence range: 22 - 26 mEq/L. The reference r delano was not used to interpret this result as normal/abnor mal. BE (test code = See_Comment [Automated message] [id number]) The system [employer] generated this result transmitted ref erence range: -3.0 - 3 .0 mEq/L. The refe rence range was not u sed to interpret this result as normal/abnor mal. Lab Interpretation (test Abnormal code = 22506-2) [facility] Arterial Blood Gas.2020-06-19 19:57:46 Test Item Value Reference Range Interpretation Comments PH (test code = 2) 7.35-7.45 L PCO2 (test code = See_Comment H [Automate d message] [id number]) The system [employer] generated this result transmitted ref erence range: 35 - 45 mmHg. The reference r delano was not used to interpret this result as normal/abnor mal. PO2 (test code = See_Comment L [Automated message] [id number]) The system [employer] generated this result transmitted ref erence range: 80 - 100 mmHg. The reference r delano was not used to interpret this result as normal/abnor mal. HCO3 (test code = See_Comment H [Automate d message] [id number]) The system [employer] generated this result transmitted ref erence range: 22 - 26 mEq/L. The reference r delano was not used to interpret this result as normal/abnor mal. BE (test code = See_Comment [Automated message] [id number]) The system [employer] generated this result transmitted ref erence range: -3.0 - 3 .0 mEq/L. The refe rence range was not u sed to interpret this result as normal/abnor mal. Lab Interpretation (test Abnormal code = 65816-8) [facility] 1 [id number] 18:15:31HISTORY: S/P intubation. TECHNIQUE: Portable AP view of the chest is obtained. Comparison is madewith earlier studies done at 9:50 AM. FINDINGS: Endotracheal tube is within 2 cm from jolly and should be pulledout by 3 cm. Nasogastric tube is in good position. Cardiomegaly noted with mild pulmonary edema in both lungs, with probablesmall left and minimal right pleural effusion. CONCLUSIONS:1. Endotrac heal tube is within less than 2 cm from jolly and should bepulled out by approximately 3 cm.2. Slight worsening in the pulmonary congestion/edema since the earlierstudy.[facility], Radiant Results Inft User- 06/19/2020 1:16 PM CDTHISTORY: S/P intubation.TECHNIQUE: Portable AP view of the chest is obtained. Comparison is madewith earlier studies done at 9:50 AM.FINDINGS: Endotracheal tube is within 2 cm from jolly and should be pulledout by 3 cm.Nasogastric tube is in good position.Cardiomegaly noted with mild pulmonary edema in both lungs, with probablesmall left and minimal right pleural effusion.CONCLUSIONS:1. Endotracheal tube is within less than 2 cm from jolly and should bepulled out by approximately 3 cm.2. Slight worsening in the pulmonary congestion/edema since the earlierstudy.[facility] CenterIntubation2021-03-17 17:54:35Stephania Murdock, ? ? 06/19/2020 12:54 PMIntubationPerformed by: Stephania Murdock DOAuthorized by: Stephania Murdock DO Consent: ?Consent obtained: ?Emergent situationPre-procedure details: ?Patient status: ?Altered mental status ?Mallampati score: ?III ?Pretreatment medications: ?None ?Paraly tics: ?SuccinylcholineProcedure details: ?Preoxygenation: ?BiPAP ?CPR in progress: no ? ?Intubation method: ?Oral ?Oral intubation technique: glide scope. ?Laryngoscope blade: ?Mac 4 ?Tube size (mm): ?7.5 ?Tube type: ?Cuffed ?Number of attempts: ?1 ?Cricoid pressure: no ? ?Tube visualized through cords: yes ?Placement assessment: ?ETT to lip: ?23 ?Tube secured with: ?ETT amado ?Breath sounds: ?Equaland absent over the epigastrium ?Placement verification: chest rise, CXR verification, direct visualization, equal breath sounds and ETCO2 detector ? ?CXR findings: ?ETT in proper placePost-procedure details: ?Patient tolerance of procedure: ?Tolerated well, no immediate complications [facility]ubation[facility]21-[facility]-17 17:54:35Stephania Murdock DO ? ? 06/19/2020 12:54 PMIntubationPerformed by: Stephania Murdock DOAuthorized by: Stephania Murdock DO Consent: ?Consent obtained: ?Emergent situationPre-procedure details: ?Patient status: ?Altered mental status ?Mallampati score: ?III ?Pretreatment medications: ?None ?Paralytics: ?SuccinylcholineProcedure details: ?Preoxygenation: ?BiPAP ?CPR in progress: no ? ?Intubation method: ?Oral ?Oral intubation technique: glide scope. ?Laryngoscope blade: ?Mac 4 ?Tube size (mm): ?7.5 ?Tube type: ?Cuffed ?Number of attempts: ?1 ?Cricoid pressure: no ? ?Tube visualized through cords: yes ?Placement assessment: ?ETT to lip: ?23 ?Tube secured with: ?ETT amado ?Breath sounds: ?Equaland absent over the epigastrium ?Placement verification: chest rise, CXR verification, direct visualization, equal breath sounds and ETCO2 detector ? ?CXR findings: ?ETT in proper placePost-procedure details: ?Patient tolerance of procedure: ?Tolerated well, no immediate complicationsCH[facility] CenterAC PANEL 20 + LACTIC [id number] 16:54:28 Test Item Value Reference Range Interpretation Comments PH (test code = 2) 7.35-7.45 L PCO2 (test code = See_Comment H [Automate d [id number]) message] The sy stem which generated this result transmitted reference range : 35 - 45 mmHg. The reference range was not used to interpret this result as normal/abnormal . PO2 (test code = See_Comment L [Automated 8380640709) message] The sy stem which generated this result transmitted reference range : 80 - 100 mmHg. The reference range was not used to interpret this result as normal/abnormal . HCO3 (test code = See_Comment H [Automate d 4568581596) message] The sy stem which generated this result transmitted reference range : 22 - 26 mEq/L. The reference range was not used to interpret this result as normal/abnormal . BE (test code = See_Comment H [Automated 1286172642) message] The sy stem which generated this result transmitted reference range : -3.0 - 3.0 mEq/ L. The reference r delano was not used to interpret this result as normal/abnormal . THB (test code = 11.8 g/dL 13.5-18.0 L 5200179815) %O2HB (test code = 90.4 % 94.0-99.0 L 5266897728) %COHB ART (test code = 1.2 % 0.0-1.5 4583619113) %METHB ART (test code = 0.1 % 0.4-1.5 L 3819157448) VOL%O2 ART (test code = 15.1 % 15.0-23.0 3480075268) NA (test code = 142 mmol/L 135-145 6800221421) K+ (test code = 4.8 mmol/L 3.5-5.0 2990284594) AC CA IONZ (test code = 4.60 mg/dL 4.50-5.30 8450741244) GLUCOSE (test code = 88 mg/dL 70-110 0859230341) LACTIC ACID (test code 1.51 mmol/L 0.50-2.20 = 3828221787) Lab Interpretation Abnormal (test code = 76708-2) [facility] + LACTIC [id number] 15:38:46 Test Item Value Reference Range Interpretation Comments PH (test code = 2) 7.35-7.45 LL PCO2 (test code = See_Comment H [Automate d 7584066360) message] The sy stem which generated this result transmitted reference range : 35 - 45 mmHg. The reference range was not used to interpret this result as normal/abnormal . PO2 (test code = See_Comment L [Automated 8773719070) message] The sy stem which generated this result transmitted reference range : 80 - 100 mmHg. The reference range was not used to interpret this result as normal/abnormal . HCO3 (test code = See_Comment H [Automate d 9999612484) message] The sy stem which generated this result transmitted reference range : 22 - 26 mEq/L. The reference range was not used to interpret this result as normal/abnormal . BE (test code = See_Comment [Automated 3992760798) message] The sy stem which generated this result transmitted reference range : -3.0 - 3.0 mEq/ L. The reference r delano was not used to interpret this result as normal/abnormal . THB (test code = 11.5 g/dL 13.5-18.0 L 4659326679) %O2HB (test code = 90.7 % 94.0-99.0 L 2624887457) %COHB ART (test code = 1.1 % 0.0-1.5 5630618503) %METHB ART (test code = 0.1 % 0.4-1.5 L 6579817794) VOL%O2 ART (test code = 14.7 % 15.0-23.0 L 3600676543) NA (test code = 141 mmol/L 135-145 9597274902) K+ (test code = 4.6 mmol/L 3.5-5.0 0386484975) AC CA IONZ (test code = 4.70 mg/dL 4.50-5.30 8976761522) GLUCOSE (test code = 97 mg/dL 70-110 6210444145) LACTIC ACID (test code 1.59 mmol/L 0.50-2.20 = 9118949917) Lab Interpretation Abnormal (test code = 24850-6) [facility] with [id number] 15:26:21 Test Item Value Reference Range Interpretation Comments WBC (test code = See_Comment [Automated 1090-2) message] The sy stem which generated this result transmitted reference range : 4.20 - 10.70 10*3/?L. The reference range was not used to interpret this result as normal/abnormal . RBC (test code = See_Comment [Automated 959-8) message] The sy stem which generated this result transmitted reference range : 4.26 - 5.52 10*6/?L. The reference range was not used to interpret this result as normal/abnormal . HGB (test code = 10.7 g/dL 12.2-16.4 L 718-7) HCT (test code = 39.8 % 38.4-49.3 4544-3) MCV (test code = 90.7 fL 81.7-95.6 787-2) MCH (test code = 24.4 pg 26.1-32.7 L 785-6) MCHC (test code = 26.9 g/dL 31.2-35.0 L 786-4) RDW-SD (test code = 59.5 fL 38.5-51.6 H 33804-2) RDW-CV (test code = 18.0 % 12.1-15.4 H 788-0) PLT (test code = See_Comment [Automated 777-3) message] The sy stem which generated this result transmitted reference range : 150 - 328 10*3/ ?L. The reference r delano was not used to interpret this result as normal/abnormal . MPV (test code = 11.7 fL 9.8-13.0 33531-0) NRBC/100 WBC (test See_Comment [Automat ed code = 5218142122) message] The system which generated this result transmitted reference range : 0.0 - 10.0 /100 WBCs. The refer ence range was not u sed to interpret th is result as normal/abnormal . NRBC x10^3 (test code <0.01 See_Comment [Auto mated = 4867911840) message] The s ystem which generated this result transmitted reference range : 10*3/?L. The reference range was not used to interpret this result as normal/abnormal . GRAN MAT (NEUT) % 74.0 % (test code = 770-8) IMM GRAN % (test code 0.30 % = 6848748665) LYMPH % (test code = 16.8 % 736-9) MONO % (test code = 8.1 % 5905-5) EOS % (test code = 0.4 % 713-8) BASO % (test code = 0.4 % 706-2) GRAN MAT x10^3(ANC) 6.79 10*3/uL 1.99-6.95 (test code = 2665428846) IMM GRAN x10^3 (test 0.03 10*3/uL 0.00-0.06 code = 0069684819) LYMPH x10^3 (test code 1.54 10*3/uL 1.09-3.23 = 731-0) MONO x10^3 (test code 0.74 10*3/uL 0.36-1.02 = 742-7) EOS x10^3 (test code = 0.04 10*3/uL 0.06-0.53 L 711-2) BASO x10^3 (test code 0.04 10*3/uL 0.01-0.09 = 704-7) Lab Interpretation Abnormal (test code = 60756-0) [facility] CenterTroponin [id number] 15:13:15 Test Item Value Reference Range Interpretation Comments TROPONIN I (test 0.074 ng/mL See_Comment H [Automated code = 6157858104) message] The system which generated this result transmitted reference range : <=0.034. The reference range was not used to interpret this result as normal/abnormal . MEG (test code = Equal or Less than MEG) 0.034 ng/ml---Normal ?Note: Cardiac troponin begins to rise 3-4 hours after the onset of ischemia. Repeat in 4-6 hours if the sample was drawn within 3-4 hours of the onset of the symptom and found normal. Between 0.035 and 0.120 ng/mL--- Borderline. Questionable myocardial injury or necrosis ? ?Note: Serial measurement may be necessary to confirm or exclude the diagnosis of myocardial injury or necrosis; Clinical correlation (symptoms, EKGs, imaging studies, and others) required; Repeat in 4-6 hours if clinically indicated. ? Equal or Higher than 0.121 ng/mL---Abnormal. Myocardial Injury or Necrosis Likely ? Biotin has been reported to cause a negative bias, interpret results relative to patient's use of biotin. ? Lab Interpretation Abnormal (test code = 29557-8) [facility] CenterN-TERMINAL [id number] 15:09:55 Test Item Value Reference Range Interpretation Comments NT-proBNP (test code 6950 pg/mL See_Comment H [Autom ated = 7420680601) message] The system which generated this result transmitted reference range : <=125. The reference range was not used to interpret this result as normal/abnormal . MEG (test code = MEG) Biotin has been reported to cause a negative bias, interpret results relative to patient's use of biotin. Lab Interpretation Abnormal (test code = 38170-0) [facility] CenterCOVID[facility] (ID NOW RAPID TESTING)2020-06-19 15:08:14 Test Item Value Reference Range Interpretation Comments SARS-CoV-2 Rapid ID NOW Not Detected Not Detected (test code = 62254-3) MEG (test code = MEG) ID NOW COVID-19 Assay is an isothermal nucleic acid amplification test intended for the qualitative detection of nucleic acid from SARS-CoV-2 viral RNA in nasopharyngeal (DOCTORATE OF CHIROPRACTIC) specimens. It is used under Emergency Use Authorization (EUA) by FDA. The limit of detection (LOD) of the assay is 125 Genome Equivalents/mL. A positive result is indicative of the presence of SARS-CoV-2 RNA. ?Clinical correlation with patient history and other diagnostic information is necessary to determine patient infection status. A negative (Not Detected) result does not preclude SARS-CoV-2 infection. In patients with clinical symptoms and other tests that are consistent with SARS-CoV-2 infection, negative results should be treated as presumptive negative and a new specimen should be tested with alternative PCR molecular test. Invalid: Please collect a new specimen for repeat patient testing if clinically indicated. Lab Interpretation Normal (test code = 44435-4) [facility] Metabolic Panel (NA, K, CL, CO2, GLUCOSE, BUN, CREATININE, CA)2020-06-19 15:02:15 Test Item Value Reference Range Interpretation Comments NA (test code = 142 mmol/L 135-145 8638495394) K (test code = 4.8 mmol/L 3.5-5.0 4498922846) CL (test code = 99 mmol/L 98-108 4986643410) CO2 TOTAL (test code = 34 mmol/L 23-31 H 0697293018) AGAP (test code = 2-16 3861243501) BUN (test code = 31 mg/dL 7-23 H 0888785119) GLUCOSE (test code = 107 mg/dL 70-110 8585433415) CREATININE (test code = 2.42 mg/dL 0.60-1.25 H 0514413632) CALCIUM (test code = 8.4 mg/dL 8.6-10.6 L 7465085277) eGFR (test code = mL/min/1.73m2 7595619215) eGFR Calculation mL/min/1.73m2 () (test code = 5153365416) MEG (test code = MEG) Association of Glomerular Filtration Rate (GFR) and Staging of Kidney Disease* + --+ --+ ------+| GFR (mL/min/1.73 m2) ?| With Kidney Damage ?| ?Without Kidney Damage+ --------+ --------+ +| ?>90 ?| ?Stage one ?| ? Normal ?+ ---+ ---+ -------+| ?60-89 ?| ?Stage two ?| ? Decreased GFR ? + --+ --+ ------+| ?30-59 ?| ?Stage three ?| ? Stage three ? + --+ --+ ------+| ?15-29 ?| ?Stage four ? | ? Stage four ?+ ---+ ---+ -------+| ?<15 (or dialysis) ? ?| ?Stage five ? | ? Stage five ?+ ---+ ---+ -------+ *Each stage assumes the associated GFR level has been in effect for at least three months. ?Stages 1 to 5, with or without kidney disease, indicate chronic kidney disease. Notes: Determination of stages one and two (with eGFR >59mL/min/1.73 m2) requires estimation of kidney damage for at least three months as defined by structural or functional abnormalities of the kidney, manifested by either:Pathological abnormalities or Markers of kidney damage (including abnormalities in the composition of the blood or urine or abnormalities in imaging tests). Lab Interpretation Abnormal (test code = 75767-4) [facility] (ALB, T.PRO, BILI T, BU/BC, ALT, AST, ALK PHOS)2020-06-19 15:02:14 Test Item Value Reference Range Interpretation Comments TOTAL BILI (test code = 2052014404) 0.3 mg/dL 0.1-1.1 BILI UNCON (test code = 0735061651) 0.1 mg/dL 0.1-1.1 BILI CONJ (test code = 8249324911) 0.0 mg/dL 0.0-0.3 T PROTEIN (test code = 5911126917) 7.1 g/dL 6.3-8.2 ALBUMIN (test code = 2174719403) 3.8 g/dL 3.5-5.0 ALK PHOS (test code = 7489381785) 134 U/L 34-122 H ALTv (test code = 1742-6) 49 U/L 5-50 AST(SGOT) (test code = 6956554588) 74 U/L 13-40 H Lab Interpretation (test code = Abnormal 49561-4) [facility] CenterLipase [id number] 15:01:54 Test Item Value Reference Range Interpretation Comments LIPASE (test code = 2360810598) 69 U/L 0-220 Lab Interpretation (test code = Normal 58583-1) [facility] CenterLipase [id number] 15:01:54 Test Item Value Reference Range Interpretation Comments LIPASE (test code = 9359393001) 69 U/L 0-220 Lab Interpretation (test code = Normal 88653-2) [facility] 1 [id number] 14:56:59HISTORY: Cough and SOB. TECHNIQUE: 2 Portable AP views of the chest are obtained. FINDINGS: No acutepneumonia. Mild cardiomegaly, dilated central pulmonaryarteries noted. Minimal congestion is seen inboth lungs without focal areaof consolidation. No pneumothorax or pleural effusion CONCLUSIONS: Cardiomegaly, dilated central pulmonary arteries and minimalcongestion in lungs. Congestion could be either secondary to cardiomegalyand/or viral infection.[facility], Radiant Results Inft User - 06/19/2020 9:58 AM CDTHISTORY: Cough and SOB.TECHNIQUE: 2 Portable AP views of the chest are obtained.FINDINGS: No acute pneumonia. Mild cardiomegaly, dilated central pulmonaryarteries noted. Minimal congestion is seenin both lungs without focal areaof consolidation. No pneumothorax or pleural effusion CONCLUSIONS: Ca rdiomegaly, dilated central pulmonary arteries and minimalcongestion in lungs. Congestion could be either secondary to cardiomegalyand/or viral infection. [facility] + LACTIC [id number] 14:50:33 Test Item Value Reference Range Interpretation Comments PH (test code = 7.32-7.42 LL 0470599544) PCO2 CLAUDINE (test code = See_Comment H [Auto mated 6198025571) message] The sy stem which generated this result transmitted reference range : 41 - 51 mmHg. The reference range was not used to interpret this result as normal/abnormal . PO2 CLAUDINE (test code = See_Comment H [Autom ated 3580438959) message] The sy stem which generated this result transmitted reference range : 25 - 40 mmHg. The reference range was not used to interpret this result as normal/abnormal . HCO3 CLAUDINE (test code = See_Comment H [Auto mated 6465606400) message] The sy stem which generated this result transmitted reference range : 24 - 28 mEq/L. The reference range was not used to interpret this result as normal/abnormal . AC VBE(BEAKER) (test mEq/L code = 3759217391) THB CLAUDINE (test code = 12.0 g/dL 13.5-18.0 L 9992485748) %O2HB CLAUDINE (test code = 76.8 % 52.0-63.0 H 0223076587) %COHB CLAUDINE (test code = 2.6 % 0.0-1.5 H 7496378746) %METHB CLAUDINE (test code = 0.3 % 0.4-1.5 L 0624992434) VOL%O2 CLAUDINE (test code = 13.0 % 6.0-12.0 H 3172148429) NA (test code = 142 mmol/L 135-145 9518817521) K+ (test code = 4.8 mmol/L 3.5-5.0 3490748117) AC CA IONZ (test code = 4.50 mg/dL 4.50-5.30 0352742932) GLUCOSE (test code = 106 mg/dL 70-110 1984712427) LACTIC ACID (test code 2.58 mmol/L 0.50-2.20 H = 2689413839) Lab Interpretation Abnormal (test code = 52947-3) [facility]
--- NOTE | 2021-12-05 22:01 | RAD REPORT ---
EXAM DESCRIPTION: RAD - Chest Single View - 12/05/2021 9:26 pm CLINICAL HISTORY: Congestion Chest pain. COMPARISON: Chest Single View dated 06/13/2020; Chest Pa And Lat (2 Views) dated 03/20/2019 FINDINGS: Portable technique limits examination quality. The lungs are grossly clear. The heart is normal in size. No displaced fractures. IMPRESSION: No acute intrathoracic process suspected.
--- NOTE | 2021-12-05 22:50 | ER ---
Nurse's Notes [facility] Name: Jose Elias Uribe Age: 65 yrs Sex: Male : 1955 Arrival Date: 12/05/2021 Time: 20:40 Bed 16 Private MD: Diagnosis: Acute upper respiratory infection, unspecified Presentation: 12/05 20:44 Chief complaint: Patient's son or daughter states: "He's been having congestion and as6 today he told me he was short of breath". Coronavirus screen: Client presents with at least one sign or symptom that may indicate coronavirus-19. Ebola Screen: No symptoms or risks identified at this time. Initial Sepsis Screen: Does the patient meet any 2 criteria? No. Patient's initial sepsis screen is negative. Does the patient have a suspected source of infection? No. Patient's initial sepsis screen is negative. Risk Assessment: Do you want to hurt yourself or someone else? Patient reports no desire to harm self or others. Onset of symptoms was December 01, 2021. 20:44 Method Of Arrival: Wheelchair as6 20:44 Acuity: COLE 2 as6 Historical: - Allergies: 20:48 bypass; as6 - Home Meds: 20:48 allopurinol 100 mg Oral tab 1 tab once daily for Gout [Active]; aspirin 81 mg Oral chew as6 1 tab once daily [Active]; atorvastatin 10 mg Oral tab 1 tab once daily [Active]; cholecalciferol (vitamin D3) 50 mcg Oral daily [Active]; alogliptin 25 mg Oral tab 1 tab once daily for Type 2 Diabetes Mellitus [Active]; cyanocobalamin (vitamin B-12) 1,000 mcg Oral tab daily [Active]; insulin glargine subcutaneous 100 unit/ml - inject 15 units sq every morning, inject 10 units at bedtime Sub-Q [Active]; finasteride 5 mg Oral tab 1 tab once daily [Active]; glyburide 5 mg Oral tab 2 tabs 2 times per day [Active]; lisinopril 10 mg Oral tab 1 tab once daily [Active]; omeprazole 20 mg Oral cpDR 1 cap once daily [Active]; metoprolol tartrate 25 mg Oral tab 0.5 tab 2 times per day [Active]; tamsulosin 0.4 mg Oral cp24 1 cap once daily [Active]; metformin 1,000 mg Oral tab 1 tab 2 times per day [Active]; - PMHx: 20:48 Alcoholism; Back pain; COPD; Depression; Diabetes - IDDM; Hyperlipidemia; Hypertension; as6 Obesity; PVD; - PSHx: 20:48 stent; as6 - Immunization history:: Client reports receiving the 2nd dose of the Covid vaccine. - Social history:: Smoking status: Patient/guardian denies using tobacco. Screenin:02 Abuse screen: Denies threats or abuse. Nutritional screening: No deficits noted. ja4 Tuberculosis screening: Never had TB. Fall Risk Ambulatory Aid- Gait- Impaired (20 pts.). Assessment: 21:02 General: Appears uncomfortable, obese, Behavior is calm, cooperative, appropriate for 2 age. Pain: Denies pain. Neuro: No deficits noted. Cardiovascular: Denies. Respiratory: Reports shortness of breath at rest on exertion cough that is productive, persistent labored breathing. 22:42 Reassessment: Patient appears in no apparent distress at this time. Patient and/or jb4 family updated on plan of care and expected duration. Pain level reassessed. Patient is alert, oriented x 3, equal unlabored respirations, skin warm/dry/pink. Pt and family member at the bedside report normal O2 leves are between 84-88 at home. Respiratory: Airway is patent Respiratory effort is even, unlabored, Respiratory pattern is regular, symmetrical, Breath sounds are clear bilaterally. Vital Signs: 20:44 BP 100 / 63; Pulse 87; Resp 16 S; Temp 98.3(O); Pulse Ox 90% on R/A; Weight 117.93 kg as6 (R); Height 5 ft. 7 in. (170.18 cm) (R); Pain 0/10; 21:04 BP 111 / 74; Pulse 87; Resp 22; Pulse Ox 100% on 2 lpm NC; Pain 0/10; ja4 22:47 BP 120 / 60; Pulse 83; Resp 20; Pulse Ox 90% on R/A; jb4 20:44 Body Mass Index 40.72 (117.93 kg, 170.18 cm) as6 ED Course: 20:40 Patient arrived in ED. bp1 20:44 Susan Spencer FNP-C [facility]. kb 20:44 Claus Day MD is Attending Physician. kb 20:48 Triage completed. as6 20:50 Arm band placed on. as6 21:02 Call light in reach. Side rails up X2. Adult w/ patient. ja4 21:02 No provider procedures requiring assistance completed. ja4 21:28 Chest Single View XRAY In Process Unspecified. EDMS 22:38 Bro Ronquillo, RN is Primary Nurse. jb4 23:10 Patient did not have IV access during this emergency room visit. jb4 Administered Medications: No medications were administered Medication: 21:02 VIS not applicable for this client. ja4 Outcome: 22:49 Discharge ordered by MD. kb 23:10 Discharged to home via wheelchair, with family. jb4 23:10 Condition: stable 23:10 Discharge instructions given to patient, Instructed on discharge instructions, follow up and referral plans. Demonstrated understanding of instructions, follow-up care. 23:10 Patient left the ED. jb4 Signatures: Dispatcher [employer] EDFL Susan Spencer, PHOTOGRAPHER-C PHOTOGRAPHER-Ckb Bro Ronquillo, RN RN jb4 Danette Donnelly Ashby, RN RN as6 Oseas Gonzales, RN RN ja4 Corrections: (The following items were deleted from the chart) 20:50 20:48 Allergies: No Known Allergies; as6 as6
--- NOTE | 2021-12-05 22:50 | EDPHYS ---
Physician Documentation [facility] Name: Jose Elias Uribe Age: 65 yrs Sex: Male : 1955 Arrival Date: 12/05/2021 Time: 20:40 Bed 16 Private MD: ED Physician Claus Day HPI: 12/05 22:56 This 65 yrs old Black Male presents to ER via Wheelchair with complaints of Congestion. kb 22:56 The patient or guardian reports cough, that is intermittent, described as mild. Onset: kb The symptoms/episode began/occurred today. Severity of symptoms: At their worst the symptoms were mild, in the emergency department the symptoms are unchanged. Modifying factors: The symptoms are alleviated by nothing, the symptoms are aggravated by nothing. Associated signs and symptoms: The patient has no apparent associated signs or symptoms. The patient has not experienced similar symptoms in the past. The patient has not recently seen a physician. Patient reports cough, congestion and fatigue that started this morning.. Historical: - Allergies: 20:48 bypass; as6 - Home Meds: 20:48 allopurinol 100 mg Oral tab 1 tab once daily for Gout [Active]; aspirin 81 mg Oral chew as6 1 tab once daily [Active]; atorvastatin 10 mg Oral tab 1 tab once daily [Active]; cholecalciferol (vitamin D3) 50 mcg Oral daily [Active]; alogliptin 25 mg Oral tab 1 tab once daily for Type 2 Diabetes Mellitus [Active]; cyanocobalamin (vitamin B-12) 1,000 mcg Oral tab daily [Active]; insulin glargine subcutaneous 100 unit/ml - inject 15 units sq every morning, inject 10 units at bedtime Sub-Q [Active]; finasteride 5 mg Oral tab 1 tab once daily [Active]; glyburide 5 mg Oral tab 2 tabs 2 times per day [Active]; lisinopril 10 mg Oral tab 1 tab once daily [Active]; omeprazole 20 mg Oral cpDR 1 cap once daily [Active]; metoprolol tartrate 25 mg Oral tab 0.5 tab 2 times per day [Active]; tamsulosin 0.4 mg Oral cp24 1 cap once daily [Active]; metformin 1,000 mg Oral tab 1 tab 2 times per day [Active]; - PMHx: 20:48 Alcoholism; Back pain; COPD; Depression; Diabetes - IDDM; Hyperlipidemia; Hypertension; as6 Obesity; PVD; - PSHx: 20:48 stent; as6 - Immunization history:: Client reports receiving the 2nd dose of the Covid vaccine. - Social history:: Smoking status: Patient/guardian denies using tobacco. ROS: 22:57 Constitutional: Negative for fever, chills, and weight loss. kb 22:57 Constitutional: Positive for fatigue. 22:57 ENT: Positive for sinus congestion. 22:57 Respiratory: Positive for cough. 22:57 All other systems are negative. Exam: 22:57 Constitutional: This is a well developed, well nourished patient who is awake, alert, kb and in no acute distress. Head/Face: Normocephalic, atraumatic. ENT: Moist Mucous membranes Cardiovascular: Regular rate and rhythm with a normal S1 and S2. No gallops, murmurs, or rubs. No pulse deficits. Respiratory: Respirations even and unlabored. No increased work of breathing. Talking in full sentences Abdomen/GI: Soft, non-tender. No distention Skin: Warm, dry with normal turgor. Normal color. MS/ Extremity: Pulses equal, no cyanosis. Neurovascular intact. Full, normal range of motion. Neuro: Awake and alert, GCS 15, oriented to person, place, time, and situation. Psych: Awake, alert, with orientation to person, place and time. Behavior, mood, and affect are within normal limits. Vital Signs: 20:44 BP 100 / 63; Pulse 87; Resp 16 S; Temp 98.3(O); Pulse Ox 90% on R/A; Weight 117.93 kg as6 (R); Height 5 ft. 7 in. (170.18 cm) (R); Pain 0/10; 21:04 BP 111 / 74; Pulse 87; Resp 22; Pulse Ox 100% on 2 lpm NC; Pain 0/10; ja4 22:47 BP 120 / 60; Pulse 83; Resp 20; Pulse Ox 90% on R/A; jb4 20:44 Body Mass Index 40.72 (117.93 kg, 170.18 cm) as6 MDM: 20:51 Patient medically screened. kb 22:57 Data reviewed: vital signs, nurses notes. Data interpreted: Pulse oximetry: on room air kb is 90 %. Interpretation: normal. Counseling: I had a detailed discussion with the patient and/or guardian regarding: the historical points, exam findings, and any diagnostic results supporting the discharge/admit diagnosis, lab results, radiology results, the need for outpatient follow up, a family practitioner, to return to the emergency department if symptoms worsen or persist or if there are any questions or concerns that arise at home. ED course: Daughter reports patient's normal oxygen saturation is between 85 and 88%. States patient has home O2 to use as needed.. 12/05 20:51 Order name: COVID-19 SARS RT PCR (Document "Date of Onset" if Symptomatic); Complete zm Time: 22:20 12/05 20:51 Order name: Flu; Complete Time: : zm 12/05 20:56 Order name: Chest Single View XRAY; Complete Time: 22:05 kb Administered Medications: No medications were administered Disposition Summary: 12/05/21 22:49 Discharge Ordered Location: Home kb Condition: Stable kb Diagnosis - Acute upper respiratory infection, unspecified kb Followup: kb - With: Emergency Department - When: As needed - Reason: Worsening of condition Followup: kb - With: Private Physician - When: 2 - 3 days - Reason: Recheck today's complaints, Continuance of care, Re-evaluation by your physician Discharge Instructions: - Discharge Summary Sheet kb - Upper Respiratory Infection, Adult, [id number] kb - Viral Respiratory Infection, [id number] kb Forms: - Medication Reconciliation Form kb - Thank You Letter kb - Antibiotic Education kb - Prescription Opioid Use kb Addendum: 12/09/2021 16:08 Co-signature as Attending Physician, Claus Day MD. r n Signatures: Dispatcher [employer] [facility] Susan Spencer, MORIAH-C APPLICATIONS CONSULTANT-Claus Gold MD MD rn Slawson, Ashby, RN RN as6 Corrections: (The following items were deleted from the chart) 12/05 20:50 20:48 Allergies: No Known Allergies; as6 as6 22:58 22:57 Constitutional: This is a well developed, well nourished patient who is awake, kb alert, and in no acute distress. Head/Face: Normocephalic, atraumatic. ENT: Moist Mucous membranes Cardiovascular: Regular rate and rhythm with a normal S1 and S2. No gallops, murmurs, or rubs. No pulse deficits. Respiratory: Respirations even and unlabored. No increased work of breathing. Talking in full sentences Abdomen/GI: Soft, non-tender. No distention Skin: Warm, dry with normal turgor. Normal color. MS/ Extremity: Pulses equal, no cyanosis. Neurovascular intact. Full, normal range of motion. Neuro: Awake and alert, GCS 15, oriented to person, place, time, and situation. Moves all extremities. Normal gait. Psych: Awake, alert, with orientation to person, place and time. Behavior, mood, and affect are within normal limits. kb
[2021-12-06 02:01] VITALS: TEMP 98.3
[2021-12-06 02:06] VITALS: BP 120/60; O2SAT 90
== END 2021-12-05 23:10 | disposition home or self-care (01) ==
LOC: ER 20:34
DX: J06.9 Acute upper respiratory infection, unspecified (principal); Z20.822 Contact with and (suspected) exposure to COVID-19; F10.20 Alcohol dependence, uncomplicated; I10 Essential (primary) hypertension; E11.9 Type 2 diabetes mellitus without complications; Z79.4 Long term (current) use of insulin
CPT/HCPCS: 87804 ×2; 71045; 99283; U0003